=== PATIENT | female | born 1970 | race Caucasian/White ===

== ENCOUNTER → 2017-03-19 | Emergency (ER) | payer SELFPAY ==
[~2017-03-19] VITALS: Ht 167.6 cm; Wt 81.6 kg
[~2017-03-19] MED LIST: ASP325TEC PO; ASPI-587 PO; BENA40TA59 PO; BNZ10T; BNZ20T PO; BUTA1TAB46 PO; CEPH500C PO; CYCL10TA45 PO; CYCL10TA9 PO; FAMO-119 PO; HYDR-3714 PO; HYDR25CA5 PO; LISI1TAB10 PO; LISI20TA PO; MACROBID PO; MEDROL DOSE PACK PO; METH4TAB PO; MOME15CR TP; NITR0.4T39 SL; NORFLEX PO; OMEG1CAP51 PO; ONDA4TAB11 PO; PANT40TA2 PO; PARO10TA21; PARO20TA57 PO; PARO40TA3 PO; PRD10T PO; PRD20T PO; TRAM50TA2 PO
--- NOTE | 2017-03-19 13:49 | ED Integumentary General ---
General Chief Complaint: Skin/Wound Problems Stated Complaint: RASH/POSS POISON VALENTINE Nursing Triage Note: rash to rt eye, behind both ears, wrists. states got into posion valentine 2 days ago Source: patient Exam Limitations: no limitations History of Present Illness Time seen by provider: 13:31 Initial Comments This patient and her son both present to the emergency room with complaints of scattered poison valentine dermatitis on the extremities, trunk, and face. They have tried topical products such as Ivarest without improvement. Rash was developed a couple days ago after working outside in some brush. Allergies and Home Medications Allergies Coded Allergies: NKANo Known Allergies (Unverified Allergy, Mild, 03/19/17) Home Medications Famotidine 20 Mg Tablet, 20 MG PO BID, #30 Ref 0 Prescribed by: RAEANN SILVA on 01/03/16 1742 Paroxetine HCl 40 Mg Tablet, 40 MG PO DAILY, (Reported) Prednisone 10 Mg Tab, 10 MG PO UD, #18 3 tablets daily for 3 days, then 2 tablets daily for 3 days, then one tablet daily for 3 days Prescribed by: USMAN CARRASQUILLO on 03/19/17 1349 Constitutional: no symptoms reported EENTM: no symptoms reported Respiratory: no symptoms reported Cardiovascular: no symptoms reported Gastrointestinal: no symptoms reported Genitourinary: no symptoms reported : No Musculoskeletal: see HPI Skin: see HPI Psychiatric/Neurological: No Symptoms Reported Past Fwdkgss-Wuslda-Hoavfi Hx Patient Social History Alcohol Use: Denies Use Recreational Drug Use: No Smoking Status: Never a Smoker 2nd Hand Smoke Exposure: No Recent Foreign Travel: No Contact w/Someone Who Travel: No Recent Infectious Disease Expo: No Recent Hopitalizations: Yes (2008 TIA OVERNIGHT) Immunizations Up To Date Tetanus Booster (TDap): More than 5yrs Date of Pneumonia Vaccine: Dec 30, 2015 Seasonal Allergies Seasonal Allergies: No Surgeries HX Surgeries: Yes (WISDOM TEETH) Respiratory Hx Respiratory Disorders: No Cardiovascular Hx Cardiac Disorders: Yes Cardiac Disorders: High Cholesterol, Hypertension Neurological Hx Neurological Disorders: Yes (OCCASIONAL HEADACHES) Neurological Disorders: Headaches /Migraines, Stroke 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 System Hx 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 Disorders: No Sexually Transmitted Disease: No 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 Disorders: Denies Genitourinary Hx Genitourinary Disorders: No Gastrointestinal Hx Gastrointestinal Disorders: No Musculoskeletal Hx Musculoskeletal Disorders: Yes (CHRONIC NECK PAIN) Musculoskeletal Disorders: Scoliosis, Chronic Back Pain Endocrine Hx Endocrine Disorders: No HEENT HX ENT Disorders: No Cancer Hx Cancer: No Psychosocial Hx Psychiatric Problems: Yes Behavioral Health Disorders: Anxiety, Depression Integumentary HX Skin/Integumentary Disorder: No Skin/Integumentary Disorders: Recent Skin Changes Blood Transfusions Hx Blood Disorders: No Family Medical History Significant Family History: Heart Disease, Cancer Family Medial History: Cardiovascular disease FH: breast cancer 19 MOTHER (METS) FH: lung cancer 19 FATHER FHx: mental retardation G8 BROTHER Myocardial infarction 19 FATHER (X2) Physical Exam Vital Signs Vital Sign - Last 12Hours 03/19/17 03/19/17 13:28 13:54 Temp 98.0 Pulse 95 Resp 18 B/P (MAP) 136/105 Pulse Ox 99 Capillary Refill : Less Than 3 Seconds General Appearance: WD/WN, no apparent distress HEENT: PERRL/EOMI, normal ENT inspection Respiratory: no respiratory distress Extremities: normal inspection Neurologic/Psychiatric: imaging technician II-XII nml as tested, no motor/sensory deficits, alert, normal mood/affect, oriented x 3 Skin: rash (erythematous and pruritic rash scattered throughout the face, extremities, and trunk) Progress/Results/Core Measures Results/Orders Vital Signs/I&O Vital Sign - Last 12Hours 03/19/17 03/19/17 13:28 13:54 Temp 98.0 Pulse 95 90 Resp 18 18 B/P (MAP) 136/105 Pulse Ox 99 Blood Pressure Mean: 115 Departure Impression Impression: Primary Impression: Contact dermatitis due to poison valentine Disposition: 01 HOME, SELF-CARE Condition: Stable Departure-Patient Inst. Decision time for Depature: 13:40 Referrals: RENETTA CARPIO MD (PCP/Family) Primary Care Physician Patient Instructions: Poison Valentine Add. Discharge Instructions: You may use topical anti-itch medications including hydrocortisone cream according to package instructions. Use the prednisone prescription as directed. Follow-up with your primary care provider for any problems or concerns. Avoid scratching the rash is much as possible. All discharge instructions reviewed with patient and/or family. Voiced understanding. Scripts Prednisone (Prednisone) 10 Mg Tab 10 MG PO UD, #18 TAB 3 tablets daily for 3 days, then 2 tablets daily for 3 days, then one tablet daily for 3 days Prov: USMAN MISTRY MD 03/19/17 USMAN MISTRY MD Mar 19, 2017 13:49
[2017-03-19 13:54] VITALS: BP 136/70
== END | disposition home or self-care (01) ==
LOC: EDUNIT# 12:53 → ER 12:55
DX: L23.7 Allergic contact dermatitis due to plants, except food (principal)
CPT/HCPCS: 99281

== ENCOUNTER 2017-04-19 14:01 | Emergency (ER) | payer SELFPAY ==
[~2017-04-19] VITALS: Ht 167.6 cm; Wt 81.8 kg
[2017-04-19] MEDS ORDERED: meTOprolol TARTRATE 25 MG (LOPRESSOR) TABLET PO ONE ×2 (14:15→14:30)
[2017-04-19] MEDS ORDERED: NS IV 1000 ML 1,000 ML IV SCH (14:15)
[2017-04-19] MEDS ORDERED: ASPIRIN 81 MG CHEW (CHILDREN'S ASA) PO ONE (14:15)
--- NOTE | 2017-04-19 14:17 | ED Cardiac General ---
History of Present Illness General Chief Complaint: Cardiac/General Problems Stated Complaint: RAPID HEART RATE FATIGUE HEADACHE Nursing Triage Note: PATIENT REPORTS HER HEART RACING INTERMITTENTLY AND HAVING A HARD TIME CATCHING HER BREATH WHEN THIS HAPPENS, PATIENT REPORTS THIS HAS BEEN GOING ON FOR SEVERAL WEEKS, AND DENIES ANYTHING WORSE ABOUT IT TODAY, DENIES SEEKING TREATMENT BEFORE TODAY Source: patient Exam Limitations: no limitations History of Present Illness Time seen by provider: 14:15 Initial Comments To ER with reports of chest tightness, palpitations, fatigue, shortness of breath, high heart rate for weeks intermittently but more persistent over the past few days. Timing/Duration: getting worse, intermittent Severity: moderate NTG SL EDUCATION TEACHER: No ASA po EDUCATION TEACHER: No Allergies and Home Medications Allergies Coded Allergies: NKANo Known Allergies (Unverified Allergy, Mild, 03/19/17) Home Medications Famotidine 20 Mg Tablet, 20 MG PO BID, #30 Ref 0 Prescribed by: RAEANN SILVA on 01/03/16 174 Paroxetine HCl 40 Mg Tablet, 40 MG PO DAILY, (Reported) Review of Systems Constitutional: see HPI EENTM: No Symptoms Reported Respiratory: No Symptoms Reported Cardiovascular: No Symptoms Reported Gastrointestinal: See HPI Genitourinary: No Symptoms Reported Musculoskeletal: no symptoms reported Skin: no symptoms reported Psychiatric/Neurological: No Symptoms Reported Endocrine: No Symptoms Reported Hematologic/Lymphatic: No Symptoms Reported Past Xchfxuw-Srbrfd-Zcbaax Hx Patient Social History Alcohol Use: Denies Use Recreational Drug Use: No Smoking Status: Never a Smoker 2nd Hand Smoke Exposure: No Recent Foreign Travel: No Contact w/Someone Who Travel: No Recent Infectious Disease Expo: No Recent Hopitalizations: No Immunizations Up To Date Tetanus Booster (TDap): More than 5yrs Date of Pneumonia Vaccine: Dec 30, 2015 Seasonal Allergies Seasonal Allergies: No Surgeries HX Surgeries: Yes (WISDOM TEETH) Respiratory Hx Respiratory Disorders: No Cardiovascular Hx Cardiac Disorders: Yes Cardiac Disorders: High Cholesterol, Hypertension Neurological Hx Neurological Disorders: Yes (OCCASIONAL HEADACHES) Neurological Disorders: Headaches /Migraines, Stroke 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 System Hx 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 Disorders: No Sexually Transmitted Disease: No 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 Disorders: Denies Genitourinary Hx Genitourinary Disorders: No Gastrointestinal Hx Gastrointestinal Disorders: No Musculoskeletal Hx Musculoskeletal Disorders: Yes (CHRONIC NECK PAIN) Musculoskeletal Disorders: Scoliosis, Chronic Back Pain Endocrine Hx Endocrine Disorders: No HEENT HX ENT Disorders: No Cancer Hx Cancer: No Psychosocial Hx Psychiatric Problems: Yes Behavioral Health Disorders: Anxiety, Depression Integumentary HX Skin/Integumentary Disorder: No Skin/Integumentary Disorders: Recent Skin Changes Blood Transfusions Hx Blood Disorders: No Family Medical History Significant Family History: Heart Disease, Cancer Family Medial History: Cardiovascular disease FH: breast cancer 19 MOTHER (METS) FH: lung cancer 19 FATHER FHx: mental retardation G8 BROTHER Myocardial infarction 19 FATHER (X2) Physical Exam Vital Signs Vital Sign - Last 12Hours 04/19/17 14:08 Temp 98.4 Pulse 113 Resp 16 B/P (MAP) 142/98 Pulse Ox 96 O2 Delivery Room Air Capillary Refill : Less Than 3 Seconds General Appearance: No Apparent Distress, WD/WN HEENT: PERRL/EOMI, TMs Normal Neck: Full Range of Motion, Normal Inspection Respiratory: No Accessory Muscle Use, No Respiratory Distress Cardiovascular: Normal Peripheral Pulses, Tachycardia (sinus 117) Extremity: Normal Capillary Refill, Normal Inspection Neurologic/Psychiatric: Alert, Oriented x3 Skin: Normal Color, Warm/Dry Progress/Results/Core Measures Results/Orders Lab Results Laboratory Tests Test 04/19/17 14:15 04/19/17 16:02 04/19/17 16:22 Range/Units White Blood Count 6.5 4.3-11.0 10^3/uL Red Blood Count 4.66 4.35-5.85 10^6/uL Hemoglobin 9.9 L 11.5-16.0 G/DL Hematocrit 33 L 35-52 % Mean Corpuscular Volume 71 L 80-99 FL Mean Corpuscular Hemoglobin 21 L 25-34 PG Mean Corpuscular Hemoglobin Concent 30 L 32-36 G/DL Red Cell Distribution Width 18.0 H 10.0-14.5 % Platelet Count 322 130-400 10^3/uL Mean Platelet Volume 11.0 H 7.4-10.4 FL Neutrophils (%) (Auto) 57 42-75 % Lymphocytes (%) (Auto) 36 12-44 % Monocytes (%) (Auto) 4 0-12 % Eosinophils (%) (Auto) 3 0-10 % Basophils (%) (Auto) 1 0-10 % Neutrophils # (Auto) 3.7 1.8-7.8 X 10^3 Lymphocytes # (Auto) 2.3 1.0-4.0 X 10^3 Monocytes # (Auto) 0.3 0.0-1.0 X 10^3 Eosinophils # (Auto) 0.2 0.0-0.3 10^3/uL Basophils # (Auto) 0.0 0.0-0.1 10^3/uL Prothrombin Time 12.9 12.2-14.7 SEC INR Comment 1.0 0.8-1.4 Activated Partial Thromboplast Time 25 24-35 SEC Sodium Level 141 135-145 MMOL/L Potassium Level 3.9 3.6-5.0 MMOL/L Chloride Level 109 H 98-107 MMOL/L Carbon Dioxide Level 24 21-32 MMOL/L Anion Gap 8 5-14 MMOL/L Blood Urea Nitrogen 16 7-18 MG/DL Creatinine 0.89 0.60-1.30 MG/DL Estimat Glomerular Filtration Rate > 60 BUN/Creatinine Ratio 18 Glucose Level 132 H 70-105 MG/DL Calcium Level 9.9 8.5-10.1 MG/DL Magnesium Level 2.1 1.8-2.4 MG/DL Total Bilirubin 0.5 0.1-1.0 MG/DL Aspartate Amino Transf (AST/SGOT) 19 5-34 U/L Alanine Aminotransferase (ALT/SGPT) 16 0-55 U/L Alkaline Phosphatase 98 40-136 U/L Myoglobin 24.9 10.0-92.0 NG/ML Troponin I < 0.30 <0.30 NG/ML Total Protein 7.5 6.4-8.2 G/DL Albumin 4.2 3.2-4.5 G/DL Thyroid Stimulating Hormone (TSH) 1.61 0.35-4.94 UIU/ML My Orders Orders - VIRAL CHILDS AUDITING CONTROL CLERK Cbc With Automated Diff (04/19/17 14:06) Magnesium (04/19/17 14:06) Chest 1 View, Ap/Pa Only (04/19/17 14:06) Ekg Tracing (04/19/17 14:06) Cardiac Profile 1 (04/19/17 14:06) Comprehensive Metabolic Panel (04/19/17 14:06) Myoglobin Serum (04/19/17 14:06) Protime With Inr (04/19/17 14:06) Partial Thromboplastin Time (04/19/17 14:06) O2 (04/19/17 14:06) Monitor-Rhythm Ecg Trace Only (04/19/17 14:06) Lipid Panel (04/20/17 06:00) Aspirin Chewable Tablet (Baby Aspirin Ch (04/19/17 14:15) Saline Lock/Iv-Start (04/19/17 14:06) Thyroid Stimulating Hormone (04/19/17 14:06) Ns Iv 1000 Ml (Sodium Chloride 0.9%) (04/19/17 14:15) Rx-Nitroglycerin Sl Tabs (Rx-Nitrostat S (04/19/17 14:15) Metoprolol Tartrate (Ir) Tab (Lopressor (04/19/17 14:15) Ct Angio Chest W (04/19/17 14:16) Ondansetron Injection (Zofran Injectio (04/19/17 14:30) Metoprolol Tartrate (Ir) Tab (Lopressor (04/19/17 14:30) Ondansetron Injection (Zofran Injectio (04/19/17 14:23) Iohexol Injection (Omnipaque 350 Mg/Ml 1 (04/19/17 15:00) Ns (Ivpb) (Sodium Chloride 0.9% Ivpb Bag (04/19/17 15:00) Troponin I (04/19/17 16:19) Hcg,Qualitative Serum (04/19/17 16:23) Medications Given in ED Current Medications Medications Dose Ordered Sig/Lyndsay Route Start Time Stop Time Status Last Admin Dose Admin Aspirin 324 mg ONCE ONCE PO 04/19/17 14:15 04/19/17 14:16 DC 04/19/17 14:24 324 MG Iohexol 125 ml ONCE ONCE IV 04/19/17 15:00 04/19/17 15:02 DC 04/19/17 15:26 125 ML Metoprolol Tartrate 25 mg ONCE ONCE PO 04/19/17 14:15 04/19/17 14:16 DC 04/19/17 14:24 25 MG Nitroglycerin 0.4 mg PRN PRN SL 04/19/17 14:15 04/19/17 14:31 0.4 MG Ondansetron HCl 4 mg ONCE ONCE IVP 04/19/17 14:30 04/19/17 14:31 DC 04/19/17 14:30 4 MG Sodium Chloride 80 ml ONCE ONCE IV 04/19/17 15:00 04/19/17 15:02 DC 04/19/17 15:26 80 ML Vital Signs/I&O Vital Sign - Last 12Hours 04/19/17 04/19/17 14:08 14:08 Temp 98.4 Pulse 113 Resp 16 B/P (MAP) 142/98 Pulse Ox 96 97 O2 Delivery Room Air Blood Pressure Mean: 113 Departure Communication Progress Notes 1619-initial heart rate was 125 sinus with normal blood pressure. Her pain resolved about one hour after she received 2 sublingual nitroglycerin so the resolution of pain was likely unrelated to the nitroglycerin. CT angiogram is clear. No changes on EKG. I did give her 25 mg of metoprolol tartrate and 1 L of IV fluids and her heart rate reduced to 85 sinus still with a normal blood pressure. At this time she is pain-free. We will repeat a troponin at this time this will be the 6 hour troponin as her pain started at 10 a.m. If it is still negative we will discharge to home for further workup in the outpatient setting. I did discuss this [facility] Dr[facility]. Impression Impression: Primary Impression: Sinus tachycardia Additional Impressions: Chest pain Dyspnea Disposition: 01 HOME, SELF-CARE Condition: Stable Departure-Patient Inst. Decision time for Depature: 16:37 Referrals: RENETTA CARPIO MD (PCP/Family) Primary Care Physician Patient Instructions: Chest Pain (DC) Add. Discharge Instructions: 1. Follow-up with Dr. Carpio. Call his office today or tomorrow to make an appointment to be seen as soon as possible for further workup of your chest pain 2. Return to ER for any recurrent worsening chest pain or other concerns All discharge instructions reviewed with patient and/or family. Voiced understanding. Scripts Metoprolol Succinate (Toprol Xl) 50 Mg Tab.er.24h 50 MG PO DAILY, #14 TAB Prov: VIRAL CHILDS APRN 04/19/17 VIARL CHILDS APRN April 19, 2017 14:16
[2017-04-19] MEDS ORDERED: ONDANSETRON 4 MG/2 ML (SDV) Z0FRAN ONE (14:23)
[2017-04-19] MEDS: RX-NITROGLYCERIN 0.4 MG TAB BTL 25'S SL PRN ×2 (14:24→14:31)
[2017-04-19] MEDS ORDERED: ONDANSETRON 4 MG/2 ML (SDV) Z0FRAN IVP ONE (14:30)
[2017-04-19 14:37] LABS: BASOPHILS % (AUTO) 1 % (0-10); EOSINOPHILS # (AUTO) 0.2 10^3/uL (0.0-0.3); EOSINOPHILS % (AUTO) 3 % (0-10); LYMPHOCYTES # (AUTO) 2.3 X 10^3 (1.0-4.0); LYMPHOCYTES % (AUTO) 36 % (12-44); MEAN CORPUSCULAR HEMOGLOBIN 21 PG (25-34); MEAN CORPUSCULAR HGB CONC 30 G/DL (32-36); MEAN CORPUSCULAR VOLUME 71 FL (80-99); MONOCYTES # (AUTO) 0.3 X 10^3 (0.0-1.0); MONOCYTES % (AUTO) 4 % (0-12); NEUTROPHILS # (AUTO) 3.7 X 10^3 (1.8-7.8); NEUTROPHILS % (AUTO) 57 % (42-75); PLATELET COUNT 322 10^3/uL (130-400); RED BLOOD COUNT 4.66 10^6/uL (4.35-5.85); WHITE BLOOD COUNT 6.5 10^3/uL (4.3-11.0)
[2017-04-19 14:49] LABS: PROTHROMBIN TIME PATIENT 12.9 SEC (12.2-14.7)
[2017-04-19 14:59] LABS: ALANINE AMINOTRANSFERASE 16 U/L (0-55); ALBUMIN 4.2 G/DL (3.2-4.5); ANION GAP 8 MMOL/L (5-14); ASPARTATE AMINO TRANSFERASE 19 U/L (5-34); BILIRUBIN,TOTAL 0.5 MG/DL (0.1-1.0); BLOOD UREA NITROGEN 16 MG/DL (7-18); BUN/CREATININE RATIO 18; CALCIUM 9.9 MG/DL (8.5-10.1); CARBON DIOXIDE 24 MMOL/L (21-32); CHLORIDE 109 MMOL/L (98-107); CREATININE SERUM 0.89 MG/DL (0.60-1.30); GFR ESTIMATED > 60; GLUCOSE 132 MG/DL (70-105); MAGNESIUM 2.1 MG/DL (1.8-2.4); POTASSIUM 3.9 MMOL/L (3.6-5.0); SODIUM 141 MMOL/L (135-145); TOTAL PROTEIN 7.5 G/DL (6.4-8.2)
[2017-04-19] MEDS ORDERED: IOHEXOL 350 MG/ML 150 ML (OMNIPAQUE 350) VIAL IV ONE (15:00)
[2017-04-19] MEDS ORDERED: NS 100 ML (IVPB) BAG IV ONE (15:00)
[2017-04-19 15:06] LABS: MYOGLOBIN SERUM 24.9 NG/ML (10.0-92.0)
--- NOTE | 2017-04-19 16:15 | Diagnostic Imaging Report ---
PROCEDURE: CT angiography of the chest with contrast. TECHNIQUE: Multiple contiguous axial images were obtained through the chest after uneventful bolus administration of intravenous contrast. Reconstructed CTA MIP acquisitions were also performed. INDICATION: Chest pressure. Tachycardia. 125 mL of Omnipaque-350 was administered. Comparison to 12/28/2015. FINDINGS: There is normal variation of duplicated IVC with dense contrast from the left arm seen descending through the left SVC into the coronary sinus. There is good opacification of the pulmonary arteries with no filling defect to suggest pulmonary embolism. The thoracic aorta is normal in caliber. No dissection. The heart size is normal. No pericardial effusion. No pleural effusion. There is prominent pericardial recess adjacent to the ascending aorta with no mediastinal mass, or enlarged lymph node seen. Small nonspecific left hilar lymph node measuring 8 mm in short axis is noted. There are also nonenlarged axillary lymph nodes seen. The lungs demonstrate no significant consolidation, mass or suspicious nodule. Minimal groundglass opacities in the dependent areas of the lung bases are perhaps related to atelectasis. There is a minimally dilated peripheral pulmonary vein arising from the inferior lingula. It appears to be draining a small arteriovenous malformation noted near the subpleural region of the lung in the inferior aspect of the lingula along the anterior cardiophrenic angle region. The supplying artery appears to be a minimally dilated left inferior phrenic artery. When correlating with 12/28/2015, although subtle, this appears to be present. There is unremarkable appearance in the upper abdomen. The osseous structures appear grossly unremarkable. IMPRESSION: 1. No PE or aortic dissection. 2. 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 3. Duplicated SVC, normal variation. Dictated by: Dictated on workstation # [id number]
[2017-04-19] MEDS ORDERED: METO-352 PO (16:38)
--- NOTE | 2017-04-19 17:06 | Diagnostic Imaging Report ---
EXAMINATION: Portable upright radiograph of the chest. INDICATION: Palpitations. FINDINGS: The lungs are clear. The heart size is normal. No effusion or pneumothorax. The mediastinum and juan jose appear unremarkable. IMPRESSION: Unremarkable exam. Dictated by: Dictated on workstation # [id number]
[2017-04-19 17:27] VITALS: BP 135/92
== END 2017-04-19 17:29 | disposition home or self-care (01) ==
LOC: EDUNIT# 14:01 → ER 14:04
DX: R00.0 Tachycardia, unspecified (principal); R07.89 Other chest pain; R06.00 Dyspnea, unspecified; R51 Headache
CPT/HCPCS: 36415; 71010; 71275; 80053; 83735; 83874; 84443; 84484; 84703; 85025; 85610; 85730; 93005; 93041

== ENCOUNTER 2017-04-20 20:53 | Emergency (ER) | payer SELFPAY ==
[~2017-04-20] VITALS: Ht 167.6 cm; Wt 81.6 kg
[~2017-04-20 20:53] MED LIST changes: +METO-352 PO
[2017-04-20 21:26] LABS: BASOPHILS % (AUTO) 1 % (0-10); EOSINOPHILS # (AUTO) 0.3 10^3/uL (0.0-0.3); EOSINOPHILS % (AUTO) 3 % (0-10); LYMPHOCYTES % (AUTO) 41 % (12-44); MEAN CORPUSCULAR HEMOGLOBIN 22 PG (25-34); MEAN CORPUSCULAR HGB CONC 30 G/DL (32-36); MEAN CORPUSCULAR VOLUME 72 FL (80-99); MEAN PLATELET VOLUME 10.2 FL (7.4-10.4); MONOCYTES # (AUTO) 0.4 X 10^3 (0.0-1.0); MONOCYTES % (AUTO) 6 % (0-12); NEUTROPHILS # (AUTO) 3.6 X 10^3 (1.8-7.8); NEUTROPHILS % (AUTO) 49 % (42-75); PLATELET COUNT 322 10^3/uL (130-400); RED BLOOD COUNT 4.48 10^6/uL (4.35-5.85); RED CELL DISTRIBUTION WIDTH 17.9 % (10.0-14.5); WHITE BLOOD COUNT 7.3 10^3/uL (4.3-11.0)
[2017-04-20 21:30] LABS: PROTHROMBIN TIME PATIENT 13.3 SEC (12.2-14.7)
[2017-04-20] MEDS ORDERED: ASPIRIN 81 MG CHEW (CHILDREN'S ASA) PO ONE (21:30)
[2017-04-20 21:38] LABS: ALANINE AMINOTRANSFERASE 17 U/L (0-55); ALBUMIN 4.2 G/DL (3.2-4.5); ANION GAP 13 MMOL/L (5-14); ASPARTATE AMINO TRANSFERASE 20 U/L (5-34); BILIRUBIN,TOTAL 0.4 MG/DL (0.1-1.0); BLOOD UREA NITROGEN 12 MG/DL (7-18); BUN/CREATININE RATIO 14; CALCIUM 9.7 MG/DL (8.5-10.1); CARBON DIOXIDE 22 MMOL/L (21-32); CHLORIDE 107 MMOL/L (98-107); CREATININE SERUM 0.86 MG/DL (0.60-1.30); GFR ESTIMATED > 60; GLUCOSE 97 MG/DL (70-105); MAGNESIUM 2.3 MG/DL (1.8-2.4); POTASSIUM 3.5 MMOL/L (3.6-5.0); TOTAL PROTEIN 7.5 G/DL (6.4-8.2)
[2017-04-20] MEDS ORDERED: FAMOTIDINE 20MG/2ML IV (PEPCID) IVP ONE (21:45)
[2017-04-20] MEDS ORDERED: ANTACID SUSP 30 ML UDC (MYLANTA) PO ONE (21:45)
[2017-04-20] MEDS ORDERED: LIDOCAINE 2% VISCOUS 15 ML UDC PO ONE (21:45)
[2017-04-20 21:46] LABS: MYOGLOBIN SERUM 20.8 NG/ML (10.0-92.0)
[2017-04-20] MEDS ORDERED: NS IV 500 ML 500 ML ONE (21:46)
[2017-04-20] MEDS ORDERED: KETOROLAC 30 MG/ML VIAL ONE (21:46)
--- NOTE | 2017-04-20 21:46 | Diagnostic Imaging Report ---
Indication: Chest pain and heart palpitations for 24 hours. Discussion: Two views of the chest were obtained, comparison 04/19/2017. No adverse interval change. The heart and lungs remain normal. No acute osseous abnormality identified. Impression: Normal chest. Dictated by: Dictated on workstation # [id number]
[2017-04-20] MEDS ORDERED: NS IV 1000 ML 1,000 ML IV ONE (21:49)
[2017-04-20] MEDS ORDERED: NS IV 500 ML 500 ML IV ONE (21:49)
--- NOTE | 2017-04-20 21:49 | ED Chest Pain ---
General Chief Complaint: Cardiac/General Problems Stated Complaint: PALPITATIONS/SOB/TIGHT IN CHEST/SWELLING/HEADACHE Nursing Triage Note: Pt presents to ED with c/o nausea, WYNN, SOA, general weakness, cough, and chest tightness. Pt seen in ED for same symptoms yesterday. Nursing Sepsis Screen: No Definite Risk Source: patient Exam Limitations: no limitations History of Present Illness Time seen by provider: 21:09 Initial Comments This 46-year-old woman presents to the emergency room with complaints of palpitations, headache, tightness in the chest, dyspnea, cough, and nausea without vomiting. She also claims to have had a brief episode of slurring words earlier today but speech is normal at this time. She has no focal neurologic deficits on presentation. She was seen last night by Viral Espino and received a thorough workup including CT angiogram of the chest and a six- hour repeat troponin. She also had a stress test performed a year ago which was negative. She reports the tightness in her chest improves when getting up and around and is worse with lying flat. Allergies and Home Medications Allergies Coded Allergies: NKANo Known Allergies (Unverified Allergy, Mild, 03/19/17) Home Medications Famotidine 20 Mg Tablet, 20 MG PO BID, #30 Ref 0 Prescribed by: RAEANN SILVA on 01/03/16 1742 Metoprolol Succinate 50 Mg Tab.er.24h, 50 MG PO DAILY, #14 Prescribed by: VIRAL ESPINO on 04/19/17 1638 Paroxetine HCl 40 Mg Tablet, 40 MG PO DAILY, (Reported) Review of Systems Constitutional: no symptoms reported EENTM: No Symptoms Reported Respiratory: See HPI Cardiovascular: See HPI Gastrointestinal: No Symptoms Reported Genitourinary: No Symptoms Reported Musculoskeletal: no symptoms reported Skin: no symptoms reported Psychiatric/Neurological: No Symptoms Reported Endocrine: No Symptoms Reported Hematologic/Lymphatic: No Symptoms Reported Past Btlziiz-Okokfm-Opchch Hx Patient Social History Alcohol Use: Denies Use Recreational Drug Use: No Smoking Status: Never a Smoker 2nd Hand Smoke Exposure: No Recent Foreign Travel: No Contact w/Someone Who Travel: No Recent Infectious Disease Expo: No Recent Hopitalizations: No Immunizations Up To Date Tetanus Booster (TDap): More than 5yrs Date of Pneumonia Vaccine: Dec 30, 2015 Seasonal Allergies Seasonal Allergies: No Surgeries HX Surgeries: Yes (WISDOM TEETH) Respiratory Hx Respiratory Disorders: No Cardiovascular Hx Cardiac Disorders: Yes Cardiac Disorders: High Cholesterol, Hypertension Neurological Hx Neurological Disorders: Yes (OCCASIONAL HEADACHES) Neurological Disorders: Headaches /Migraines, Stroke (stated history but diagnosis uncertain) 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 System Hx 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 Disorders: No Sexually Transmitted Disease: No 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 Disorders: Denies Genitourinary Hx Genitourinary Disorders: No Gastrointestinal Hx Gastrointestinal Disorders: No Musculoskeletal Hx Musculoskeletal Disorders: Yes (CHRONIC NECK PAIN) Musculoskeletal Disorders: Scoliosis, Chronic Back Pain Endocrine Hx Endocrine Disorders: No HEENT HX ENT Disorders: No Cancer Hx Cancer: No Psychosocial Hx Psychiatric Problems: Yes Behavioral Health Disorders: Anxiety, Depression Integumentary HX Skin/Integumentary Disorder: No Skin/Integumentary Disorders: Recent Skin Changes Blood Transfusions Hx Blood Disorders: No Family Medical History Significant Family History: Heart Disease, Cancer Family Medial History: Cardiovascular disease FH: breast cancer 19 MOTHER (METS) FH: lung cancer 19 FATHER FHx: mental retardation G8 BROTHER Myocardial infarction 19 FATHER (X2) Physical Exam Vital Signs Vital Sign - Last 12Hours 04/20/17 20:58 Temp 97.7 Pulse 95 Resp 18 B/P (MAP) 141/97 Pulse Ox 97 O2 Delivery Room Air Capillary Refill : Less Than 3 Seconds General Appearance: No Apparent Distress, WD/WN HEENT: PERRL/EOMI, Normal ENT Inspection, Pharynx Normal Neck: Normal Inspection Respiratory: Chest Non Tender, Lungs Clear, Normal Breath Sounds, No Accessory Muscle Use, No Respiratory Distress Cardiovascular: Regular Rate, Rhythm, No Edema, No Murmur Gastrointestinal: Normal Bowel Sounds, Non Tender, Soft Extremity: Normal Inspection, No Pedal Edema Neurologic/Psychiatric: Alert, Oriented x3, No Motor/Sensory Deficits, Normal Mood/Affect, bond runner II-XII Norm as Tested, Other (normal gait, heel to mcclure and finger to nose. Normal speech) Skin: Normal Color, Warm/Dry Progress/Results/Core Measures Results/Orders Lab Results Laboratory Tests Test 04/20/17 21:05 Range/Units White Blood Count 7.3 4.3-11.0 10^3/uL Red Blood Count 4.48 4.35-5.85 10^6/uL Hemoglobin 9.7 L 11.5-16.0 G/DL Hematocrit 32 L 35-52 % Mean Corpuscular Volume 72 L 80-99 FL Mean Corpuscular Hemoglobin 22 L 25-34 PG Mean Corpuscular Hemoglobin Concent 30 L 32-36 G/DL Red Cell Distribution Width 17.9 H 10.0-14.5 % Platelet Count 322 130-400 10^3/uL Mean Platelet Volume 10.2 7.4-10.4 FL Neutrophils (%) (Auto) 49 42-75 % Lymphocytes (%) (Auto) 41 12-44 % Monocytes (%) (Auto) 6 0-12 % Eosinophils (%) (Auto) 3 0-10 % Basophils (%) (Auto) 1 0-10 % Neutrophils # (Auto) 3.6 1.8-7.8 X 10^3 Lymphocytes # (Auto) 3.0 1.0-4.0 X 10^3 Monocytes # (Auto) 0.4 0.0-1.0 X 10^3 Eosinophils # (Auto) 0.3 0.0-0.3 10^3/uL Basophils # (Auto) 0.0 0.0-0.1 10^3/uL Prothrombin Time 13.3 12.2-14.7 SEC INR Comment 1.0 0.8-1.4 Activated Partial Thromboplast Time 26 24-35 SEC Sodium Level 142 135-145 MMOL/L Potassium Level 3.5 L 3.6-5.0 MMOL/L Chloride Level 107 98-107 MMOL/L Carbon Dioxide Level 22 21-32 MMOL/L Anion Gap 13 5-14 MMOL/L Blood Urea Nitrogen 12 7-18 MG/DL Creatinine 0.86 0.60-1.30 MG/DL Estimat Glomerular Filtration Rate > 60 BUN/Creatinine Ratio 14 Glucose Level 97 70-105 MG/DL Calcium Level 9.7 8.5-10.1 MG/DL Magnesium Level 2.3 1.8-2.4 MG/DL Total Bilirubin 0.4 0.1-1.0 MG/DL Aspartate Amino Transf (AST/SGOT) 20 5-34 U/L Alanine Aminotransferase (ALT/SGPT) 17 0-55 U/L Alkaline Phosphatase 94 40-136 U/L Myoglobin 20.8 10.0-92.0 NG/ML Troponin I < 0.30 <0.30 NG/ML Total Protein 7.5 6.4-8.2 G/DL Albumin 4.2 3.2-4.5 G/DL My Orders Orders - USMAN MISTRY MD Cbc With Automated Diff (04/20/17:) Magnesium (04/20/17:17) Ekg Tracing (04/20/17:) Cardiac Profile 1 (04/20/17:17) Comprehensive Metabolic Panel (04/20/17:17) Myoglobin Serum (04/20/17 21:17) Protime With Inr (04/20/17:) Partial Thromboplastin Time (04/20/17:) O2 (04/20/17:17) Monitor-Rhythm Ecg Trace Only (04/20/17:) Lipid Panel (04/21/17 06:00) Aspirin Chewable Tablet (Baby Aspirin Ch (04/20/17 21:30) Saline Lock/Iv-Start (04/20/17:17) Chest Pa/Lat (2 View) (04/20/17 21:17) Lidocaine 2% Viscous 15 Ml (Xylocaine Vi (04/20/17 21:45) Antacid Suspension (Mylanta Suspension (04/20/17 21:45) Famotidine Injection (Pepcid Injection) (04/20/17 21:45) Ketorolac Injection (Toradol Injection) (04/20/17 22:00) Ns Iv 1000 Ml (Sodium Chloride 0.9%) (04/20/17 21:49) Ns Iv 500 Ml (Sodium Chloride 0.9%) (04/20/17 21:49) Ketorolac Injection (Toradol Injection) (04/20/17 21:46) Ns Iv 500 Ml (Sodium Chloride 0.9%) (04/20/17 21:46) Medications Given in ED Current Medications Medications Dose Ordered Sig/Lyndsay Route Start Time Stop Time Status Last Admin Dose Admin Al Hydrox/Mg Hydrox/Simethicone 30 ml ONCE ONCE PO 04/20/17 21:45 04/20/17 21:46 DC 04/20/17 21:46 30 ML Aspirin 324 mg ONCE ONCE PO 04/20/17 21:30 04/20/17 21:31 DC 04/20/17 21:30 324 MG Famotidine 20 mg ONCE ONCE IVP 04/20/17 21:45 04/20/17 21:46 DC 04/20/17 21:45 20 MG Ketorolac Tromethamine 30 mg ONCE ONCE IVP 04/20/17 22:00 04/20/17 22:01 DC 04/20/17 21:51 30 MG Lidocaine HCl 15 ml ONCE ONCE PO 04/20/17 21:45 04/20/17 21:46 DC 04/20/17 21:45 15 ML Sodium Chloride 500 ml @ 0 mls/hr Q0M ONCE IV 04/20/17 21:49 04/20/17 21:51 DC 04/20/17 21:52 0 MLS/HR Vital Signs/I&O Vital Sign - Last 12Hours 04/20/17 20:58 Temp 97.7 Pulse 95 Resp 18 B/P (MAP) 141/97 Pulse Ox 97 O2 Delivery Room Air Blood Pressure Mean: 112 Progress Note #1: Time: 21:45 Progress Note Labs and x-ray interpretation are pending. EKG was normal. Pain is atypical and worse with lying flat. A GI cocktail and Pepcid will be trialed. Workup from yesterday was reviewed. Progress Note #2: Time: 22:24 Progress Note GI cocktail and Pepcid did not significantly improve her pain. Toradol and IV fluids were given for treatment of headache. Patient has essentially had a cardiac rule out with multiple troponins and EKGs performed over the last 2 days. Pain is atypical in nature as it is unaffected by activity but worse with position changes. Review of chart revealed a negative stress test performed in 2015. Patient was given reassurance regarding her serum test that was performed yesterday. She was concerned about this because she is late on her menstrual cycle. She is 46 and we discussed perimenopausal symptoms which may account for some of the symptoms she has been experiencing recently. Case was reviewed with Dr. Dorothy Ford. She did not feel admission was necessary at this time and advised close follow-up in the clinic next week. Discharge instructions were reviewed with patient. ECG Initial ECG Impression Date: April 20, 2017 Initial ECG Impression Time: 21:06 Initial ECG Rate: 84 Initial ECG Rhythm: Normal Sinus Initial ECG Intervals: Normal Initial ECG Impression: Normal Comment Normal sinus rhythm with no ST elevation or depression. No abnormal intervals or axis deviation. Diagnostic Imaging Diagonstic Imaging: Xray Plain Films/CT/US/NM/MRI: chest Comments Chest x-ray viewed by me and report reviewed. See report below: NAME: [facility] REC#: [id number] PT STATUS: REG ER : 1970 PHYSICIAN: USMAN MISTRY MD ADMIT DATE: 04/20/17/ER Signed Date of Exam:04/20/17 CHEST PA/LAT (2 VIEW) Indication: Chest pain and heart palpitations for 24 hours. Discussion: Two views of the chest were obtained, comparison 04/19/2017. No adverse interval change. The heart and lungs remain normal. No acute osseous abnormality identified. Impression: Normal chest. Dictated by: Dictated on workstation # [id number] Dict: 04/20/172142 Trans: 04/20/172152 [id number] Interpreted by: RENETTA BUCKNER MD Electronically signed by: RENETTA BUCKNER MD 04/20/172152 Departure Impression Impression: Primary Impression: Atypical chest pain Additional Impressions: Palpitations Headache Qualified Codes: R51 - Headache Disposition: 01 HOME, SELF-CARE Condition: Improved Departure-Patient Inst. Decision time for Depature: 22:19 Referrals: RENETTA CARPIO MD (PCP/Family) Primary Care Physician Patient Instructions: Chest Pain (DC) Add. Discharge Instructions: Continue taking metoprolol as previously prescribed. Add aspirin 81 mg daily. Follow-up as [facility] as soon as possible. Return to the ER if symptoms worsen. Stay well-hydrated. You may take ibuprofen up to 800 mg every 8 hours as needed for headache or pain. All discharge instructions reviewed with patient and/or family. Voiced understanding. Work/School Note: Work Release Form Date Seen in the Emergency Department: April 20, 2017 Return to Work: April 23, 2017 Other Restrictions Listed Below: Seen in ER 04/19 and 04/20. May return to work nexte weekend if feeling well. Copy Copies To 1: RENETTA CARPIO MD, JOSHUA T MD April 20, 2017 21:49
[2017-04-20] MEDS ORDERED: KETOROLAC 30 MG/ML VIAL IVP ONE (22:00)
[2017-04-20 22:05] LABS: SODIUM 142 MMOL/L (135-145)
[2017-04-20 22:29] VITALS: BP 147/88
== END 2017-04-20 22:28 | disposition home or self-care (01) ==
LOC: EDUNIT# 20:53 → ER 20:57
DX: R07.89 Other chest pain (principal); R00.2 Palpitations; R51 Headache; I10 Essential (primary) hypertension
CPT/HCPCS: 36415; 71020; 80053; 83735; 83874; 84484; 85025; 85610; 85730; 93005; 93041; 96374; 96375

== ENCOUNTER 2017-04-27 23:35 | Emergency (ER) | payer SELFPAY ==
[~2017-04-27] VITALS: Ht 167.6 cm; Wt 81.6 kg
--- NOTE | 2017-04-28 00:13 | ED Syncope ---
General Chief Complaint: Trauma-Non Activation Stated Complaint: PASSED OUT,HEAD & RT CHECK PAINFUL Nursing Triage Note: syncopal episode, fell out of office chair. c/o worsened chronic neck pain, headache Source of Information: Patient, Family, RN Notes Reviewed Exam Limitations: No Limitations History of Present Illness Time Seen by Provider: 00:06 Initial Comments Patient presents along c/ her family c/ c/o head and neck pain p/ having a syncopal episode while sitting in a chair. Family believes she struck her head/ face on the table when she passed out and fell from her chair. Has never done this before. No warning. Hx of chronic neck pain now worse. Pain presently 5/ 10. Denies any chest pain or dyspnea. Location Injury Occurred: home Timing/Prior Episodes: No Prior History Symptoms Prior to Episode: None Precipitating Factors: Sitting Loss of Consciousness: No Loss of Consciousness Current Symptoms: Headache, Injury Allergies and Home Medications Allergies Coded Allergies: NKANo Known Allergies (Unverified Allergy, Mild, 03/19/17) morphine (Verified Allergy, Unknown, 04/27/17) Home Medications Cefdinir 300 Mg Capsule, 300 MG PO BID, #14 Ref 0 Prescribed by: DANA DON on 04/28/17 0330 Cyclobenzaprine HCl 10 Mg Tablet, 10 MG PO Q8H PRN for neck spasm, #30 Ref 0 Prescribed by: DANA DON on 04/28/17 0329 Diclofenac Sodium 50 Mg Tablet.dr, 50 MG PO Q6H PRN for neck/facial pain, #30 Ref 0 Prescribed by: DANA DON on 04/28/17 0329 Famotidine 20 Mg Tablet, 20 MG PO BID, #30 Ref 0 Prescribed by: RAEANN SILVA on 01/03/16 1742 Metoprolol Succinate 50 Mg Tab.er.24h, 50 MG PO DAILY, #14 Prescribed by: VIRAL CHILDS on 04/19/17 1638 Paroxetine HCl 40 Mg Tablet, 40 MG PO DAILY, (Reported) Constitutional: see HPI : No Musculoskeletal: neck pain (acute on chronic) Psychiatric/Neurological: See HPI, Headache All Other Systems Reviewed Negative Unless Noted: Yes (Negative excepted noted.) Past Omoidsj-Ivpvga-Xqcehm Hx Patient Social History Alcohol Use: Denies Use Recreational Drug Use: No Smoking Status: Never a Smoker 2nd Hand Smoke Exposure: No Recent Foreign Travel: No Contact w/Someone Who Travel: No Recent Infectious Disease Expo: No Recent Hopitalizations: No Immunizations Up To Date Tetanus Booster (TDap): More than 5yrs Date of Pneumonia Vaccine: Dec 30, 2015 Seasonal Allergies Seasonal Allergies: No Surgeries HX Surgeries: Yes (WISDOM TEETH) Respiratory Hx Respiratory Disorders: No Cardiovascular Hx Cardiac Disorders: Yes Cardiac Disorders: High Cholesterol, Hypertension Neurological Hx Neurological Disorders: Yes (OCCASIONAL HEADACHES) Neurological Disorders: Headaches /Migraines, Stroke 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 System : No Hx 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 Disorders: No Sexually Transmitted Disease: No 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 Genitourinary Hx Genitourinary Disorders: No Gastrointestinal Hx Gastrointestinal Disorders: No Musculoskeletal Hx Musculoskeletal Disorders: Yes (CHRONIC NECK PAIN) Musculoskeletal Disorders: Scoliosis, Chronic Back Pain Endocrine Hx Endocrine Disorders: No HEENT HX ENT Disorders: No Cancer Hx Cancer: No Psychosocial Hx Psychiatric Problems: Yes Behavioral Health Disorders: Anxiety, Depression Integumentary HX Skin/Integumentary Disorder: No Skin/Integumentary Disorders: Recent Skin Changes Blood Transfusions Hx Blood Disorders: No Family Medical History Significant Family History: Heart Disease, Cancer Family Medial History: Cardiovascular disease FH: breast cancer 19 MOTHER (METS) FH: lung cancer 19 FATHER FHx: mental retardation G8 BROTHER Myocardial infarction 19 FATHER (X2) Physical Exam Vital Signs Vital Sign - Last 12Hours 04/27/17 23:55 Temp 98.4 Pulse 99 Resp 16 B/P (MAP) 138/86 Pulse Ox 99 O2 Delivery Room Air Capillary Refill : Less Than 3 Seconds General Appearance: No Apparent Distress, WD/WN HEENT: PERRL/EOMI, Normal ENT Inspection Neck: Tender Lateral (B/L, R>L) Cardiovascular: Regular Rate, Rhythm Respiratory: No Respiratory Distress Extremities: Normal Inspection Neurologic/Psychiatric: Alert, Oriented x3, No Motor/Sensory Deficits, Normal Mood/Affect Cranial Nerves: Normal Hearing, Normal Speech, PERRL Coordination/Gait: Normal Gait Motor/Sensory: No Motor Deficit, No Sensory Deficit Skin: Warm/Dry Progress/Results/Core Measures Results/Orders Lab Results Laboratory Tests Test 04/28/17 00:35 04/28/17 00:40 Range/Units Urine Color RED H Urine Clarity SLIGHTLY CLOUDY Urine pH 6 5-9 Urine Specific [place] 1.020 1.016-1.022 Urine Protein 3+ H NEGATIVE Urine Glucose (UA) NEGATIVE NEGATIVE Urine Ketones 1+ H NEGATIVE Urine Nitrite POSITIVE H NEGATIVE Urine Bilirubin NEGATIVE NEGATIVE Urine Urobilinogen 4 H NORMAL MG/DL Urine Leukocyte Esterase 2+ H NEGATIVE Urine RBC (Auto) 5+ H NEGATIVE Urine RBC TNTC H /HPF Urine WBC 0-2 /HPF Urine Crystals NONE /LPF Urine Bacteria FEW H /HPF Urine Casts NONE /LPF Urine Mucus NEGATIVE /LPF Urine Culture Indicated YES Urine Opiates Screen NEGATIVE NEGATIVE Urine Oxycodone Screen NEGATIVE NEGATIVE Urine Methadone Screen NEGATIVE NEGATIVE Urine Propoxyphene Screen NEGATIVE NEGATIVE Urine Barbiturates Screen NEGATIVE NEGATIVE Ur Tricyclic Antidepressants Screen NEGATIVE NEGATIVE Urine Phencyclidine Screen NEGATIVE NEGATIVE Urine Amphetamines Screen NEGATIVE NEGATIVE Urine Methamphetamines Screen NEGATIVE NEGATIVE Urine Benzodiazepines Screen NEGATIVE NEGATIVE Urine Cocaine Screen NEGATIVE NEGATIVE Urine Cannabinoids Screen NEGATIVE NEGATIVE White Blood Count 7.6 4.3-11.0 10^3/uL Red Blood Count 4.43 4.35-5.85 10^6/uL Hemoglobin 9.4 L 11.5-16.0 G/DL Hematocrit 32 L 35-52 % Mean Corpuscular Volume 72 L 80-99 FL Mean Corpuscular Hemoglobin 21 L 25-34 PG Mean Corpuscular Hemoglobin Concent 30 L 32-36 G/DL Red Cell Distribution Width 18.3 H 10.0-14.5 % Platelet Count 335 130-400 10^3/uL Mean Platelet Volume 10.1 7.4-10.4 FL Neutrophils (%) (Auto) 51 42-75 % Lymphocytes (%) (Auto) 39 12-44 % Monocytes (%) (Auto) 6 0-12 % Eosinophils (%) (Auto) 3 0-10 % Basophils (%) (Auto) 1 0-10 % Neutrophils # (Auto) 3.9 1.8-7.8 X 10^3 Lymphocytes # (Auto) 2.9 1.0-4.0 X 10^3 Monocytes # (Auto) 0.5 0.0-1.0 X 10^3 Eosinophils # (Auto) 0.3 0.0-0.3 10^3/uL Basophils # (Auto) 0.1 0.0-0.1 10^3/uL D-Dimer 0.70 H 0.00-0.49 UG/ML Sodium Level 139 135-145 MMOL/L Potassium Level 3.8 3.6-5.0 MMOL/L Chloride Level 106 98-107 MMOL/L Carbon Dioxide Level 23 21-32 MMOL/L Anion Gap 10 5-14 MMOL/L Blood Urea Nitrogen 21 H 7-18 MG/DL Creatinine 0.82 0.60-1.30 MG/DL Estimat Glomerular Filtration Rate > 60 BUN/Creatinine Ratio 26 Glucose Level 101 70-105 MG/DL Calcium Level 9.7 8.5-10.1 MG/DL Magnesium Level 2.5 H 1.8-2.4 MG/DL Total Bilirubin 0.3 0.1-1.0 MG/DL Aspartate Amino Transf (AST/SGOT) 19 5-34 U/L Alanine Aminotransferase (ALT/SGPT) 12 0-55 U/L Alkaline Phosphatase 100 40-136 U/L Troponin I < 0.30 <0.30 NG/ML Total Protein 7.7 6.4-8.2 G/DL Albumin 4.2 3.2-4.5 G/DL Micro Results Microbiology 04/28/17 Urine Culture - Preliminary, Resulted My Orders Orders - DANA DON DO Saline Lock/Iv-Start (04/28/17 00:10) Ekg Tracing (04/28/17 00:10) Ct Head/Face/Cervical Wo (04/28/17 00:10) Cbc With Automated Diff (04/28/17 00:10) Comprehensive Metabolic Panel (04/28/17 00:10) Fibrin Degradation Products (04/28/17 00:10) Drug Screen Stat (Urine) (04/28/17 00:10) Magnesium (04/28/17 00:10) Troponin I (04/28/17 00:10) Ua Culture If Indicated (04/28/17 00:10) Chest Pa/Lat (2 View) (04/28/17 00:10) Orthostatic Vital Signs (04/28/17 00:10) Urine Culture (04/28/17 00:35) Ct Angio Chest W (04/28/17 01:16) Cephalexin Capsule (Keflex Capsule) (04/28/17 01:45) Methocarbamol Tablet (Robaxin Tablet) (04/28/17 01:45) Ketorolac Injection (Toradol Injection) (04/28/17 01:45) Medications Given in ED Vital Signs/I&O Vital Sign - Last 12Hours 04/27/17 04/28/17 23:55 03:38 Temp 98.4 98.1 Pulse 99 92 Resp 16 16 B/P (MAP) 138/86 Pulse Ox 99 98 O2 Delivery Room Air Blood Pressure Mean: 103 ECG Initial ECG Impression Date: Apr 28, 2017 Initial ECG Impression Time: 00:46 Initial ECG Rate: 88 Initial ECG Rhythm: Normal Sinus Initial ECG Intervals: Normal Initial ECG Impression: Normal Initial ECG Comparisson: Unchanged Diagnostic Imaging Diagonstic Imaging: Xray, CT Plain Films/CT/US/NM/MRI: chest (NAD ), c-spine, head, other (facial- nothing acute on CT's) Departure Impression Impression: Primary Impression: Syncope Additional Impressions: Facial contusion Sprain of ligaments of cervical spine UTI (urinary tract infection) Disposition: HOME, SELF-CARE Condition: Stable Departure-Patient Inst. Decision time for Depature: 03:26 Referrals: RENETTA CARPIO MD (PCP/Family) Primary Care Physician Patient Instructions: Minor Head Injury (DC), Syncope (Fainting) (DC), Urinary Tract Infection, Adult (DC), Whiplash (DC) Add. Discharge Instructions: All discharge instructions reviewed with patient and/or family. Voiced understanding. START/CONTINUE YOUR IRON PRESCRIBED DISCUSSED. Scripts Cefdinir (Cefdinir) 300 Mg Capsule 300 MG PO BID for UTI, #14 CAP 0 Refills Prov: DANA DON DO 04/28/17 Cyclobenzaprine HCl (Cyclobenzaprine HCl) 10 Mg Tablet 10 MG PO Q8H Y for neck spasm, #30 TAB 0 Refills Prov: DANA DON DO 04/28/17 Diclofenac Sodium (Diclofenac Sodium) 50 Mg Tablet.dr 50 MG PO Q6H Y for neck/facial pain, #30 TAB 0 Refills Prov: DANA DON DO 04/28/17 Work/School Note: Work Release Form DANA DON DO Apr 28, 2017 00:12
[2017-04-28 00:44] LABS: BILIRUBIN,URINE NEGATIVE (NEGATIVE); KETONES,URINE 1+ (NEGATIVE); LEUKOCYTE ESTERASE ,URINE 2+ (NEGATIVE); NITRITE,URINE POSITIVE (NEGATIVE); PH,URINE 6 (5-9); PROTEIN,URINE 3+ (NEGATIVE); UROBILINOGEN,URINE 4 MG/DL (NORMAL)
[2017-04-28 00:49] LABS: BASOPHILS # (AUTO) 0.1 10^3/uL (0.0-0.1); BASOPHILS % (AUTO) 1 % (0-10); EOSINOPHILS # (AUTO) 0.3 10^3/uL (0.0-0.3); EOSINOPHILS % (AUTO) 3 % (0-10); LYMPHOCYTES # (AUTO) 2.9 X 10^3 (1.0-4.0); LYMPHOCYTES % (AUTO) 39 % (12-44); MEAN CORPUSCULAR HEMOGLOBIN 21 PG (25-34); MEAN CORPUSCULAR HGB CONC 30 G/DL (32-36); MEAN CORPUSCULAR VOLUME 72 FL (80-99); MEAN PLATELET VOLUME 10.1 FL (7.4-10.4); MONOCYTES # (AUTO) 0.5 X 10^3 (0.0-1.0); MONOCYTES % (AUTO) 6 % (0-12); NEUTROPHILS # (AUTO) 3.9 X 10^3 (1.8-7.8); NEUTROPHILS % (AUTO) 51 % (42-75); PLATELET COUNT 335 10^3/uL (130-400); RED BLOOD COUNT 4.43 10^6/uL (4.35-5.85); RED CELL DISTRIBUTION WIDTH 18.3 % (10.0-14.5); WHITE BLOOD COUNT 7.6 10^3/uL (4.3-11.0)
[2017-04-28 01:03] LABS: WBC,URINE 0-2 /HPF
[2017-04-28 01:07] LABS: ALANINE AMINOTRANSFERASE 12 U/L (0-55); ALBUMIN 4.2 G/DL (3.2-4.5); ANION GAP 10 MMOL/L (5-14); ASPARTATE AMINO TRANSFERASE 19 U/L (5-34); BILIRUBIN,TOTAL 0.3 MG/DL (0.1-1.0); BLOOD UREA NITROGEN 21 MG/DL (7-18); BUN/CREATININE RATIO 26; CALCIUM 9.7 MG/DL (8.5-10.1); CARBON DIOXIDE 23 MMOL/L (21-32); CHLORIDE 106 MMOL/L (98-107); CREATININE SERUM 0.82 MG/DL (0.60-1.30); GFR ESTIMATED > 60; GLUCOSE 101 MG/DL (70-105); MAGNESIUM 2.5 MG/DL (1.8-2.4); POTASSIUM 3.8 MMOL/L (3.6-5.0); SODIUM 139 MMOL/L (135-145); TOTAL PROTEIN 7.7 G/DL (6.4-8.2)
[2017-04-28 01:12] LABS: TROPONIN I < 0.30 NG/ML (<0.30)
[2017-04-28] MEDS: KETOROLAC 30 MG/ML VIAL IVP ONE (02:08)
[2017-04-28] MEDS: METHOCARBAMOL 500 MG (ROBAXIN) TABLET PO ONE (02:08)
[2017-04-28] MEDS: CEPHALEXIN 250 MG (KEFLEX) CAP PO ONE (02:08)
[2017-04-28] MEDS ORDERED: CYCL10TA9 PO (03:29)
[2017-04-28] MEDS ORDERED: DICL50TA6 PO (03:29)
[2017-04-28] MEDS ORDERED: CEFD300C3 PO (03:30)
[2017-04-28 03:38] VITALS: BP 134/83
--- NOTE | 2017-04-28 07:45 | Diagnostic Imaging Report ---
PROCEDURE: CT angiography of the chest with contrast. TECHNIQUE: Multiple contiguous axial images were obtained through the chest after uneventful bolus administration of intravenous contrast. Reconstructed CTA MIP acquisitions were also performed. INDICATION: Passed out. COMPARISON: Comparison is made with a CTA of the chest from April 19, 2017. FINDINGS: There is adequate opacification demonstrated of the pulmonary arterial system. There is no filling defect within the pulmonary arteries to suggest embolism. 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 There is no aortic dissection or aneurysm. 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 There are no focal pulmonary infiltrates. There is no effusion. There is no pneumothorax. No pulmonary nodule or mass demonstrated. There is no thoracic adenopathy. The visualized portion of the upper abdomen is unremarkable. There is no acute osseous abnormality. IMPRESSION: 1. No CT angiographic evidence of pulmonary embolism. 2. Thoracic aorta unremarkable. 3. 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 Dictated by: Dictated on workstation # [id number]
--- NOTE | 2017-04-28 08:13 | Diagnostic Imaging Report ---
EXAM: PA and lateral chest. COMPARISON: April 20, 2017. INDICATION: Passed out. FINDINGS: The lungs appear clear without focal infiltrate or evidence of an effusion. There is no pneumothorax. Heart size and mediastinal contours are appropriate. Pulmonary vascularity appears within normal limits without evidence of failure. No acute osseous abnormality is demonstrated. IMPRESSION: No radiographic evidence of an acute cardiopulmonary process. 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 Dictated by: Dictated on workstation # [id number]
--- NOTE | 2017-04-28 08:35 | Diagnostic Imaging Report ---
PROCEDURE: CT head, face, and cervical spine without contrast. TECHNIQUE: Multiple contiguous axial images were obtained through the head, neck, and facial bones without the use of intravenous contrast. Sagittal and coronal reformations through the cervical spine and facial bones were also performed. INDICATION: Passed out. Hit right side of head and face. Head and face pain. FINDINGS: CT of the head demonstrates no evidence of an acute intracranial abnormality. There is no evidence of intracranial hemorrhage. There is no mass effect or shift. There is no abnormal extra-axial fluid collection. The ventricles appropriate in size and configuration. The basilar cisterns are patent. Pardo and white differentiation appears preserved. Mastoids and paranasal sinuses are clear. Orbital contents are unremarkable. No calvarial fracture is demonstrated. CT of the face demonstrates unremarkable appearance of the intraorbital contents. Sinuses are clear. No acute facial fracture is demonstrated. The temporomandibular joints are located. Cervical spine demonstrates straightening of the cervical lordosis but normal alignment. There is normal alignment of the craniocervical junction. The facets are normally aligned. There is no abnormal prevertebral soft tissue thickening. No acute cervical spine fracture is demonstrated. There is no evidence of high-grade canal stenosis. Lung apices are clear. There is no focal soft tissue abnormality. IMPRESSION: 1. No CT evidence of an acute intracranial abnormality. 2. No evidence of acute facial fracture. 3. No CT evidence of acute cervical spine fracture or traumatic malalignment. Dictated by: Dictated on workstation # [id number]
== END 2017-04-28 03:37 | disposition home or self-care (01) ==
LOC: EDUNIT# 23:35 → ER 23:38
DX: R55 Syncope and collapse (principal); S00.83XA Contusion of other part of head, initial encounter; S13.4XXA Sprain of ligaments of cervical spine, initial encounter; N30.91 Cystitis, unspecified with hematuria; I10 Essential (primary) hypertension; Z79.899 Other long term (current) drug therapy; W07.XXXA Fall from chair, initial encounter; Y92.009 Unspecified place in unspecified non-institutional (private) residence as the place of occurrence of the external cause; Y99.8 Other external cause status
CPT/HCPCS: 36415; 70450; 70486; 71020; 71275; 72125; 80053; 80306; 81000; 83735; 84484; 85025; 85379; 87088

== ENCOUNTER 2017-05-06 18:31 | Emergency (ER) | payer SELFPAY ==
[~2017-05-06] VITALS: Ht 167.6 cm; Wt 81.8 kg
[~2017-05-06 18:31] MED LIST changes: +CEFD300C3 PO; +DICL50TA6 PO
[2017-05-06] MEDS ORDERED: KETOROLAC 60 MG/2 ML VIAL IM STA (19:10)
[2017-05-06] MEDS ORDERED: ORPHENADRINE 60 MG/2 ML (NORFLEX) AMP IM STA (19:10)
--- NOTE | 2017-05-06 19:17 | ED Headache ---
General Chief Complaint: Head/Cervical Problems Stated Complaint: HEADACHE/NECK PAIN Nursing Triage Note: Ambulatory to ED 8 with reports of persistent intermittent headache, neck pain and left shoulder pain s/p fall with syncope on 04/27/17, which she was seen and evaluated in ED for. Denies following up with PCP. Nursing Sepsis Screen: No Definite Risk Source: patient, spouse Exam Limitations: no limitations History of Present Illness Time seen by provider: 18:58 Initial Comments 46-year-old female patient presents to the emergency department complains of persistent headache since falling 10 days ago. Patient was seen in the emergency department on 04/28/[address] scan of the head/neck/face with negative findings. Patient denies using the prescribed pain medications, but has been using the muscle relaxant w/o relief. Denies bowel or bladder incontinence. Timing/Duration: waxing and waning, other (10 days) Severity/Quality: throbbing Location: other (location of headache moves.) Prior Headaches/Recent Trauma: other (fell 10 days ago) Modifying Factors: worse with movement Allergies and Home Medications Allergies Coded Allergies: morphine (Verified Allergy, Unknown, 04/27/17) Home Medications Cefdinir 300 Mg Capsule, 300 MG PO BID, #14 Ref 0 Prescribed by: DANA DON on 04/28/17 0330 Cyclobenzaprine HCl 10 Mg Tablet, 10 MG PO Q8H PRN for neck spasm, #30 Ref 0 Prescribed by: DANA DON on 04/28/17 0329 Diclofenac Sodium 50 Mg Tablet.dr, 50 MG PO Q6H PRN for neck/facial pain, #30 Ref 0 Prescribed by: DANA DON on 04/28/17 0329 Famotidine 20 Mg Tablet, 20 MG PO BID, #30 Ref 0 Prescribed by: RAEANN SILVA on 01/03/16 1742 Metoprolol Succinate 50 Mg Tab.er.24h, 50 MG PO DAILY, #14 Prescribed by: VIRAL CHILDS on 04/19/17 1638 Orphenadrine Citrate 100 Mg Tablet.er, 100 MG PO BID PRN for SPASMS, #14 Ref 0 Prescribed by: RAEANN SILVA on 05/06/172027 Paroxetine HCl 40 Mg Tablet, 40 MG PO DAILY, (Reported) Prednisone 20 Mg Tab, 40 MG PO DAILY, #10 Ref 0 Prescribed by: RAEANN SILVA on 05/06/172027 Tramadol HCl 50 Mg Tablet, 50-100 MG PO Q4H PRN for PAIN-MILD TO MODERATE, #20 Ref 0 Prescribed by: RAEANN SILVA on 05/06/172027 Constitutional: No dizziness, No fever, No malaise, No weakness Eyes: Denies Drainage, Denies Decreased Acuity, Denies Photophobia, Denies Vision Changes Ears, Nose, Mouth, Throat: denies ear pain, denies ear discharge, denies nose pain, denies nose discharge, denies epistaxis, denies mouth pain, denies loose teeth, denies throat pain Respiratory: No cough, No short of breath Cardiovascular: No chest pain, No palpitations, No syncope Gastrointestinal: No abdominal pain, No diarrhea, loss of appetite, nausea, No vomiting Genitourinary: no symptoms reported Musculoskeletal: No back pain, joint pain (bilateral shoulder pain), neck pain Skin: no symptoms reported Psychiatric/Neurological: Headache, Denies Numbness, Denies Paresthesia, Denies Seizure, Denies Tingling, Denies Weakness All Other Systems Reviewed Negative Unless Noted: Yes (Negative excepted noted.) Past Gxaydsv-Zilpjj-Trazji Hx Patient Social History Alcohol Use: Denies Use Recreational Drug Use: No Smoking Status: Never a Smoker 2nd Hand Smoke Exposure: No Recent Foreign Travel: No Contact w/Someone Who Travel: No Recent Infectious Disease Expo: No Recent Hopitalizations: No Immunizations Up To Date Tetanus Booster (TDap): More than 5yrs Date of Pneumonia Vaccine: Dec 30, 2015 Seasonal Allergies Seasonal Allergies: No Surgeries HX Surgeries: Yes (WISDOM TEETH) Respiratory Hx Respiratory Disorders: No Cardiovascular Hx Cardiac Disorders: Yes Cardiac Disorders: High Cholesterol, Hypertension Neurological Hx Neurological Disorders: Yes (OCCASIONAL HEADACHES) Neurological Disorders: Headaches /Migraines, Stroke 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 System Hx 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 Disorders: No Sexually Transmitted Disease: No 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 Disorders: Denies 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 Genitourinary Hx Genitourinary Disorders: No Gastrointestinal Hx Gastrointestinal Disorders: No Musculoskeletal Hx Musculoskeletal Disorders: Yes (CHRONIC NECK PAIN) Musculoskeletal Disorders: Scoliosis, Chronic Back Pain Endocrine Hx Endocrine Disorders: No HEENT HX ENT Disorders: No Cancer Hx Cancer: No Psychosocial Hx Psychiatric Problems: Yes Behavioral Health Disorders: Anxiety, Depression Integumentary HX Skin/Integumentary Disorder: No Skin/Integumentary Disorders: Recent Skin Changes Blood Transfusions Hx Blood Disorders: No Reviewed Nursing Assessment Reviewed/Agree w Nursing PMH: Yes Family Medical History Significant Family History: Heart Disease, Cancer Family Medial History: Cardiovascular disease FH: breast cancer 19 MOTHER (METS) FH: lung cancer 19 FATHER FHx: mental retardation G8 BROTHER Myocardial infarction 19 FATHER (X2) Physical Exam Vital Signs Vital Sign - Last 12Hours 05/06/17 18:40 Temp 98.1 Pulse 106 Resp 16 B/P (MAP) 153/100 Pulse Ox 96 O2 Delivery Room Air Capillary Refill : Less Than 3 Seconds General Appearance: WD/WN, no apparent distress HEENT: PERRL/EOMI, normal ENT inspection, TMs normal, pharynx normal Neck: non-tender, supple, limited range of motion, tender lateral, No tender midline, other ((+) muscle spasm) Cardiovascular: normal peripheral pulses, no edema, no murmur, tachycardia Respiratory: lungs clear, normal breath sounds, no respiratory distress Gastrointestinal: normal bowel sounds, non tender, soft, No distended Back: normal inspection, no vertebral tenderness Extremities: normal range of motion, no pedal edema, normal capillary refill, other (bilateral posterior shoulders TTP with muscle spasms.) Psychiatric: alert, oriented x 3, other (appropriate affect.) Crainal Nerves: normal hearing, normal speech, PERRL, No abnormal pupil position, No abnormal speech, No facial asymmetry, No facial droop, No facial paresthesias, No facial weakness, No gaze palsy, No tongue deviation to R, No tongue deviation to L Coordination/Gait: normal finger to nose, normal gait, negative Romberg's sign Motor/Sensory: no motor deficit, no sensory deficit, no pronator drift Skin: normal color, warm/dry Progress/Results/Core Measures Results/Orders My Orders Orders - RAEANN SILVA Ct Head Wo (05/06/17 19:10) Ketorolac Injection (Toradol Injection) (05/06/17 19:10) Orphenadrine Injection (Norflex Injectio (05/06/17 19:10) Tramadol Tablet (Ultram Tablet) (05/06/17 20:30) Medications Given in ED Current Medications Medications Dose Ordered Sig/Lyndsay Route Start Time Stop Time Status Last Admin Dose Admin Tramadol HCl 50 mg ONCE ONCE PO 05/06/17 20:30 05/06/17 20:31 DC 05/06/17 20:32 50 MG Vital Signs/I&O Vital Sign - Last 12Hours 05/06/17 05/06/17 05/06/17 05/06/17 18:40 19:40 19:40 20:32 Temp 98.1 98.1 98.1 98.1 Pulse 106 Resp 16 B/P (MAP) 153/100 Pulse Ox 96 O2 Delivery Room Air 05/06/17 20:33 Temp 98.1 Pulse 88 Resp 16 Pulse Ox 98 Blood Pressure Mean: 117 Diagnostic Imaging Diagonstic Imaging: CT Plain Films/CT/US/NM/MRI: head Comments FINDINGS: No acute intracranial hemorrhage, mass effect or edema is seen. Pardo- white junction is preserved. The ventricles appear normal. No focal abnormality is suspected. The paranasal sinuses and mastoids are clear as visualized. IMPRESSION: There is no evidence of an acute intracranial abnormality. Dictated on workstation # [id number] Reviewed: Reviewed by Me (radiology report reviewed by me. ) Departure Communication Progress Notes Diagnostic findings discussed with the patient. Patient reports headache improved with medications given. States pain is now a 4/10. Patient given tramadol 1 dose prior to discharge. All return precautions were discussed with the patient as described in the discharge instructions of this report. Patient voices understanding and agrees with the treatment plan. Impression Impression: Primary Impression: Tension type headache Qualified Codes: G44.209 - Tension-type headache, unspecified, not intractable Additional Impressions: Strain of muscle, fascia and tendon at neck level, subsequent encounter Minor head injury Qualified Codes: S00.90XD - Unspecified superficial injury of unspecified part of head, subsequent encounter Disposition: 01 HOME, SELF-CARE Condition: Improved Departure-Patient Inst. Decision time for Depature: 20:03 Referrals: RENETTA CARPIO MD (PCP/Family) Primary Care Physician Patient Instructions: Minor Head Injury (DC), Tension Headache (DC) Add. Discharge Instructions: All discharge instructions reviewed with patient and/or family. Voiced understanding. Medications as instructed. Ibuprofen 800 mg by mouth every 8 hours as needed for pain. Ice packs or a heating pad as needed for headache and muscle spasm. Avoid strenuous activity, lifting, pushing, pulling, twisting, bending, climbing, or activities which may result in head injury for 7 days after headache resolves. Follow-up with family practitioner for recheck as an outpatient, call for appointment time tomorrow morning. Return to the emergency department for worsened headache, dizziness, changes in behavior, changes in vision, slurred speech, vomiting, decreased urination, numbness, weakness, bowel incontinence, bladder incontinence, seizure, or any other concerns. Scripts Orphenadrine Citrate (Orphenadrine Citrate) 100 Mg Tablet.er 100 MG PO BID Y for SPASMS, #14 TAB 0 Refills Prov: RAEANN SILVA 05/06/17 Tramadol HCl (Tramadol HCl) 50 Mg Tablet 50-100 MG PO Q4H Y for PAIN-MILD TO MODERATE, #20 TAB 0 Refills Prov: RAEANN SILVA 05/06/17 Prednisone (Prednisone) 20 Mg Tab 40 MG PO DAILY, #10 TAB 0 Refills Prov: RAEANN SILVA 05/06/17 RAEANN SILVA May 06, 2017 19:17
--- NOTE | 2017-05-06 19:39 | Diagnostic Imaging Report ---
PROCEDURE: CT head without contrast. TECHNIQUE: Multiple contiguous axial images were obtained through the brain without the use of intravenous contrast. INDICATION: Recent syncopal episode with headaches COMPARISON: 04/28/2017 FINDINGS: No acute intracranial hemorrhage, mass effect or edema is seen. Pardo-white junction is preserved. The ventricles appear normal. No focal abnormality is suspected. The paranasal sinuses and mastoids are clear as visualized. IMPRESSION: There is no evidence of an acute intracranial abnormality. Dictated by: Dictated on workstation # [id number]
[2017-05-06] MEDS ORDERED: ORPH100T PO (20:28)
[2017-05-06] MEDS ORDERED: TRAM50TA2 PO (20:28)
[2017-05-06] MEDS ORDERED: PRD20T PO (20:28)
[2017-05-06 20:33] VITALS: BP 144/90
== END 2017-05-06 20:33 | disposition home or self-care (01) ==
LOC: EDUNIT# 18:31 → ER 18:33
DX: G44.209 Tension-type headache, unspecified, not intractable (principal); S16.1XXD Strain of muscle, fascia and tendon at neck level, subsequent encounter; S09.90XD Unspecified injury of head, subsequent encounter; I10 Essential (primary) hypertension; F41.9 Anxiety disorder, unspecified; F32.9 Major depressive disorder, single episode, unspecified; Z86.73 Personal history of transient ischemic attack (TIA), and cerebral infarction without residual deficits; W19.XXXD Unspecified fall, subsequent encounter
CPT/HCPCS: 70450; 99282

== ENCOUNTER 2017-05-10 13:11 | Emergency (ER) | payer SELFPAY ==
[~2017-05-10] VITALS: Ht 167.6 cm; Wt 81.6 kg
[~2017-05-10 13:11] MED LIST changes: +ORPH100T PO
--- NOTE | 2017-05-10 13:40 | ED Headache ---
General Chief Complaint: General Problems/Pain Stated Complaint: LEFT SIDE HEAD/NECK/SHOULDER PAIN Source: patient Exam Limitations: no limitations History of Present Illness Time seen by provider: 13:38 Initial Comments To ER with left-sided headache, persistent nausea, pressure in her left ear, sensation of a knot in the left side of her neck. Patient states that she fell in her office at home and was found by her . She is brought out here and evaluated had a CT scan of the head and was told this was a concussion. Since then about a week ago she's had persistent headaches and nausea. Severity/Quality: moderate, constant Associated Symptoms: nausea/vomiting Allergies and Home Medications Allergies Coded Allergies: morphine (Verified Allergy, Unknown, 04/27/17) Home Medications Cefdinir 300 Mg Capsule, 300 MG PO BID, #14 Ref 0 Prescribed by: DANA DON on 04/28/17 0330 Cyclobenzaprine HCl 10 Mg Tablet, 10 MG PO Q8H PRN for neck spasm, #30 Ref 0 Prescribed by: DANA DON on 04/28/17 0329 Diclofenac Sodium 50 Mg Tablet.dr, 50 MG PO Q6H PRN for neck/facial pain, #30 Ref 0 Prescribed by: DANA DON on 04/28/17 0329 Famotidine 20 Mg Tablet, 20 MG PO BID, #30 Ref 0 Prescribed by: RAEANN SILVA on 01/03/16 1742 Metoprolol Succinate 50 Mg Tab.er.24h, 50 MG PO DAILY, #14 Prescribed by: VIRAL CHILDS on 04/19/17 1638 Orphenadrine Citrate 100 Mg Tablet.er, 100 MG PO BID PRN for SPASMS, #14 Ref 0 Prescribed by: RAEANN SILVA on 05/06/172027 Paroxetine HCl 40 Mg Tablet, 40 MG PO DAILY, (Reported) Prednisone 20 Mg Tab, 40 MG PO DAILY, #10 Ref 0 Prescribed by: RAEANN SILVA on 05/06/172027 Tramadol HCl 50 Mg Tablet, 50-100 MG PO Q4H PRN for PAIN-MILD TO MODERATE, #20 Ref 0 Prescribed by: RAEANN SILVA on 05/06/172027 Constitutional: see HPI Eyes: No Symptoms Reported Ears, Nose, Mouth, Throat: no symptoms reported Respiratory: no symptoms reported Cardiovascular: no symptoms reported Genitourinary: no symptoms reported Musculoskeletal: no symptoms reported Skin: no symptoms reported Psychiatric/Neurological: See HPI, Headache Past Imrlpzm-Ddxsyx-Hfzkgt Hx Patient Social History 2nd Hand Smoke Exposure: No Recent Foreign Travel: No Contact w/Someone Who Travel: No Recent Hopitalizations: No Immunizations Up To Date Tetanus Booster (TDap): More than 5yrs Date of Pneumonia Vaccine: Dec 30, 2015 Seasonal Allergies Seasonal Allergies: No Surgeries HX Surgeries: Yes (WISDOM TEETH) Respiratory Hx Respiratory Disorders: No Cardiovascular Hx Cardiac Disorders: Yes Cardiac Disorders: High Cholesterol, Hypertension Neurological Hx Neurological Disorders: Yes (OCCASIONAL HEADACHES) Neurological Disorders: Headaches /Migraines, Stroke 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 System Hx 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 Disorders: No Sexually Transmitted Disease: No 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 Disorders: 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 Genitourinary Hx Genitourinary Disorders: No Gastrointestinal Hx Gastrointestinal Disorders: No Musculoskeletal Hx Musculoskeletal Disorders: Yes (CHRONIC NECK PAIN) Musculoskeletal Disorders: Scoliosis, Chronic Back Pain Endocrine Hx Endocrine Disorders: No HEENT HX ENT Disorders: No Cancer Hx Cancer: No Psychosocial Hx Psychiatric Problems: Yes Behavioral Health Disorders: Anxiety, Depression Integumentary HX Skin/Integumentary Disorder: No Skin/Integumentary Disorders: Recent Skin Changes Blood Transfusions Hx Blood Disorders: No Family Medical History Significant Family History: Heart Disease, Cancer Family Medial History: Cardiovascular disease FH: breast cancer 19 MOTHER (METS) FH: lung cancer 19 FATHER FHx: mental retardation G8 BROTHER Myocardial infarction 19 FATHER (X2) Physical Exam Vital Signs Vital Sign - Last 12Hours 05/10/17 13:37 Temp 98.1 Pulse 69 Resp 20 B/P (MAP) 143/95 Pulse Ox 99 O2 Delivery Room Air Capillary Refill : General Appearance: WD/WN, no apparent distress HEENT: PERRL/EOMI, normal ENT inspection, other (there is a blue cylindrical foreign body next to the tympanic membrane on the right. Patient assures me she does not have tympanostomy tubes. Unclear what this is but it's very small and right next to the tympanic membrane so I will not attempt to remove this. The tympanic membrane itself is normal in appearance on both sides.) Neck: non-tender, full range of motion, other (tenderness to palpation of the left sternomastoid muscle. There is no knot palpable.) Respiratory: normal breath sounds, no respiratory distress, no accessory muscle use Gastrointestinal: normal bowel sounds, non tender, soft Psychiatric: alert, oriented x 3 Crainal Nerves: normal hearing, normal speech, PERRL Skin: normal color, warm/dry Progress/Results/Core Measures Results/Orders Lab Results Laboratory Tests Test 05/10/17 13:32 Range/Units Urine Color YELLOW Urine Clarity SLIGHTLY CLOUDY Urine pH 6 5-9 Urine Specific [place] 1.020 1.016-1.022 Urine Protein 1+ H NEGATIVE Urine Glucose (UA) NEGATIVE NEGATIVE Urine Ketones NEGATIVE NEGATIVE Urine Nitrite NEGATIVE NEGATIVE Urine Bilirubin NEGATIVE NEGATIVE Urine Urobilinogen NORMAL NORMAL MG/DL Urine Leukocyte Esterase 1+ H NEGATIVE Urine RBC (Auto) NEGATIVE NEGATIVE Urine RBC NONE /HPF Urine WBC NONE /HPF Urine Squamous Epithelial Cells 25-50 H /HPF Urine Crystals NONE /LPF Urine Bacteria NEGATIVE /HPF Urine Casts NONE /LPF Urine Mucus NEGATIVE /LPF Urine Culture Indicated NO My Orders Orders - VIRAL CHILDS APRN Ketorolac Injection (Toradol Injection) (05/10/17 13:45) Diphenhydramine Injection (Benadryl Inje (05/10/17 13:45) Prochlorperazine Injection (Compazine In (05/10/17 13:45) Ua Culture If Indicated (05/10/17 13:41) Ct Cervical Spine Wo (05/10/17 13:42) Saline Lock/Iv-Start (05/10/17 13:48) Prochlorperazine Injection (Compazine In (05/10/17 14:00) Diphenhydramine Injection (Benadryl Inje (05/10/17 14:00) Ketorolac Injection (Toradol Injection) (05/10/17 14:00) Medications Given in ED Current Medications Medications Dose Ordered Sig/Lyndsay Route Start Time Stop Time Status Last Admin Dose Admin Diphenhydramine HCl 25 mg ONCE ONCE IVP 05/10/17 14:00 05/10/17 14:01 DC 05/10/17 14:02 25 MG Ketorolac Tromethamine 30 mg ONCE ONCE IVP 05/10/17 14:00 05/10/17 14:01 DC 05/10/17 14:04 30 MG Prochlorperazine Edisylate 10 mg ONCE ONCE IV 05/10/17 14:00 05/10/17 14:01 DC 05/10/17 13:59 10 MG Vital Signs/I&O Vital Sign - Last 12Hours 05/10/17 13:37 Temp 98.1 Pulse 69 Resp 20 B/P (MAP) 143/95 Pulse Ox 99 O2 Delivery Room Air Departure Impression Impression: Primary Impression: lateral neck pain Additional Impression: Headache Disposition: HOME, SELF-CARE Condition: Stable Departure-Patient Inst. Decision time for Depature: 14:50 Referrals: RENETTA CARPIO MD (PCP/Family) Primary Care Physician Patient Instructions: NO INSTRUCTIONS GIVEN Add. Discharge Instructions: 1. You must follow-up with your regular doctor All discharge instructions reviewed with patient and/or family. Voiced understanding. VIRAL CHILDS REPORT PROGRAMMER May 10, 2017 13:40
[2017-05-10] MEDS ORDERED: KETOROLAC 60 MG/2 ML VIAL IM ONE (13:45)
[2017-05-10] MEDS ORDERED: PROCHLORPERAZINE 10 MG/2ML INJ (COMPAZINE) IM ONE (13:45)
[2017-05-10] MEDS ORDERED: diphenhydrAMINE 50 MG/ML INJ (BENADRYL) IM ONE (13:45)
[2017-05-10] MEDS ORDERED: PROCHLORPERAZINE 10 MG/2ML INJ (COMPAZINE) IV ONE (14:00)
[2017-05-10] MEDS ORDERED: diphenhydrAMINE 50 MG/ML INJ (BENADRYL) IVP ONE (14:00)
[2017-05-10] MEDS ORDERED: KETOROLAC 30 MG/ML VIAL IVP ONE (14:00)
[2017-05-10 14:09] LABS: BILIRUBIN,URINE NEGATIVE (NEGATIVE); KETONES,URINE NEGATIVE (NEGATIVE); LEUKOCYTE ESTERASE ,URINE 1+ (NEGATIVE); NITRITE,URINE NEGATIVE (NEGATIVE); PH,URINE 6 (5-9); PROTEIN,URINE 1+ (NEGATIVE); UROBILINOGEN,URINE NORMAL (NORMAL)
[2017-05-10 14:26] LABS: SQUAMOUS EPITHELIAL CELL,UR 25-50 /HPF
--- NOTE | 2017-05-10 14:46 | Diagnostic Imaging Report ---
PROCEDURE: CT cervical spine without contrast. TECHNIQUE: Multiple contiguous axial images were obtained through the cervical spine without the use of intravenous contrast. Sagittal and coronal reformations were then performed. INDICATION: Fall. Lump along the left side of the neck. FINDINGS: There is straightening of the cervical lordotic curvature. The alignment of the posterior spinal line is satisfactory. The alignment of the facet joints is satisfactory. There is normal alignment of the lateral masses of C1 and C2 at the atlanto-occipital joints as well. No widening of the predental space. There is satisfactory maintained vertebral body heights. Disc heights are also maintained. No significant osteophyte formation. No fracture seen. The area where the patient is feeling an increasing swelling is overlying the left sternocleidomastoid muscle with no fluid collection, hemorrhage or mass seen. IMPRESSION: Straightening of the cervical lordotic curvature is presumably positional. No fracture seen. Dictated by: Dictated on workstation # [id number]
[2017-05-10 15:05] VITALS: BP 143/95
== END 2017-05-10 15:05 | disposition home or self-care (01) ==
LOC: EDUNIT# 13:11 → ER 13:13
DX: R51 Headache (principal); M54.2 Cervicalgia; I10 Essential (primary) hypertension; Z86.73 Personal history of transient ischemic attack (TIA), and cerebral infarction without residual deficits
CPT/HCPCS: 72125; 81000

== ENCOUNTER 2017-08-07 19:59 | Emergency (ER) | payer SELFPAY ==
[~2017-08-07] VITALS: Ht 167.6 cm; Wt 81.6 kg
[2017-08-07 21:14] LABS: BILIRUBIN,URINE NEGATIVE (NEGATIVE); KETONES,URINE NEGATIVE (NEGATIVE); LEUKOCYTE ESTERASE ,URINE NEGATIVE (NEGATIVE); NITRITE,URINE NEGATIVE (NEGATIVE); PH,URINE 6 (5-9); PROTEIN,URINE NEGATIVE (NEGATIVE); UROBILINOGEN,URINE NORMAL (NORMAL)
[2017-08-07 21:24] LABS: WBC,URINE RARE /HPF
[2017-08-07] MEDS ORDERED: ANTACID SUSP 30 ML UDC (MYLANTA) PO ONE (21:30)
[2017-08-07] MEDS ORDERED: LIDOCAINE 2% VISCOUS 15 ML UDC PO ONE (21:30)
--- NOTE | 2017-08-07 21:43 | ED GI ---
General Chief Complaint: Abdominal/GI Problems Stated Complaint: PT FEELS LIKE SOMETHING IS STUCK IN HER THROAT Nursing Triage Note: c/o abdomen pain after eating, patient reports has been going on for several days, feels like something is stuck Sepsis Screen: No Definite Risk Source of Information: Patient Exam Limitations: No Limitations History of Present Illness Time Seen By Provider: 21:39 Initial Comments [id number] to ER with reports of foreign body sensation in her esophagus for the past week. She is uncertain as to what was that she was eating when this first started but she states that for the past week every time that she tries to swallow she feels as if there is something systolic in her upper throat. She does not have any history of this prior to 1 week ago. She's never had an EGD. She denies nausea vomiting or abdominal pain. No fevers or chills or shortness of breath. Timing/Duration: 1 Week Severity/Quality: Moderate Radiation: No Radiation Activities at Onset: None Allergies and Home Medications Allergies Coded Allergies: morphine (Verified Allergy, Unknown, 04/27/17) Home Medications Cefdinir 300 Mg Capsule, 300 MG PO BID, #14 Ref 0 Prescribed by: DANA DON on 04/28/17 0330 Cyclobenzaprine HCl 10 Mg Tablet, 10 MG PO Q8H PRN for neck spasm, #30 Ref 0 Prescribed by: DANA DON on 04/28/17 0329 Diclofenac Sodium 50 Mg Tablet.dr, 50 MG PO Q6H PRN for neck/facial pain, #30 Ref 0 Prescribed by: DANA DON on 04/28/17 0329 Famotidine 20 Mg Tablet, 20 MG PO BID, #30 Ref 0 Prescribed by: RAEANN SILVA on 01/03/16 1742 Metoprolol Succinate 50 Mg Tab.er.24h, 50 MG PO DAILY, #14 Prescribed by: VIRAL CHILDS on 04/19/17 1638 Orphenadrine Citrate 100 Mg Tablet.er, 100 MG PO BID PRN for SPASMS, #14 Ref 0 Prescribed by: RAEANN SILVA on 05/06/178 Pantoprazole Sodium 40 Mg Tablet.dr, 40 MG PO DAILY, #30 Prescribed by: VIRAL CHILDS on 08/07/179 Paroxetine HCl 40 Mg Tablet, 40 MG PO DAILY, (Reported) Prednisone 20 Mg Tab, 40 MG PO DAILY, #10 Ref 0 Prescribed by: RAEANN SILVA on 05/06/172027 Tramadol HCl 50 Mg Tablet, 50-100 MG PO Q4H PRN for PAIN-MILD TO MODERATE, #20 Ref 0 Prescribed by: RAEANN SILVA on 05/06/172027 Review of Systems Constitutional: see HPI EENTM: No Symptoms Reported Respiratory: No Symptoms Reported Cardiovascular: No Symptoms Reported Gastrointestinal: See HPI Genitourinary: No Symptoms Reported Musculoskeletal: no symptoms reported Skin: no symptoms reported Psychiatric/Neurological: No Symptoms Reported Past Fjmnmsp-Ihkkox-Ugxcvw Hx Patient Social History Alcohol Use: Denies Use Recreational Drug Use: No Smoking Status: Never a Smoker 2nd Hand Smoke Exposure: No Recent Foreign Travel: No Contact w/Someone Who Travel: No Recent Infectious Disease Expo: No Recent Hopitalizations: No Physical Abuse: No Sexual Abuse: No Immunizations Up To Date Tetanus Booster (TDap): More than 5yrs Date of Pneumonia Vaccine: Dec 30, 2015 Seasonal Allergies Seasonal Allergies: No Surgeries History of Surgeries: Yes (WISDOM TEETH) Respiratory History of Respiratory Disorde: No Cardiovascular History of Cardiac Disorders: Yes (tachycardia) Cardiac Disorders: High Cholesterol, Hypertension Neurological History of Neurological Disord: Yes (OCCASIONAL HEADACHES) Neurological Disorders: Concussion, Headaches /Migraines, Stroke 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 System Hx 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 Disorders: No Sexually Transmitted Disease: No 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 Disorders: Denies 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 Genitourinary History of Genitourinary Disor: No Gastrointestinal History of Gastrointestinal Di: No Musculoskeletal History of Musculoskeletal Dis: Yes (CHRONIC NECK PAIN) Musculoskeletal Disorders: Scoliosis, Chronic Back Pain Endocrine History of Endocrine Disorders: No HEENT History of HEENT Disorders: No Cancer History of Cancer: No Psychosocial History of Psychiatric Problem: Yes Behavioral Health Disorders: Anxiety, Depression Suicide Risk Score: 0 Integumentary History of Skin or Integumenta: No Skin/Integumentary Disorders: Recent Skin Changes Blood Transfusions History of Blood Disorders: No Family Medical History Significant Family History: Heart Disease, Cancer Family Medial History: Cardiovascular disease FH: breast cancer 19 MOTHER (METS) FH: lung cancer 19 FATHER FHx: mental retardation G8 BROTHER Myocardial infarction 19 FATHER (X2) Physical Exam Vital Signs VS - Last 72 Hours, by Label 08/07/17 20:41 Pulse 89 Resp 18 B/P (MAP) 152/98 Pulse Ox 99 Capillary Refill : Less Than 3 Seconds General Appearance: WD/WN, no apparent distress HEENT: PERRL/EOMI, normal ENT inspection Neck: non-tender, full range of motion Respiratory: no respiratory distress, no accessory muscle use Gastrointestinal: normal bowel sounds, non tender, soft Extremities: normal range of motion, non-tender Neurologic/Psychiatric: alert, normal mood/affect, oriented x 3 Skin: normal color, warm/dry Progress/Results/Core Measures Results/Orders Lab Results Laboratory Tests Test 08/07/17 20:45 Range/Units Urine Color YELLOW Urine Clarity CLEAR Urine pH 6 5-9 Urine Specific [place] 1.010 L 1.016-1.022 Urine Protein NEGATIVE NEGATIVE Urine Glucose (UA) NEGATIVE NEGATIVE Urine Ketones NEGATIVE NEGATIVE Urine Nitrite NEGATIVE NEGATIVE Urine Bilirubin NEGATIVE NEGATIVE Urine Urobilinogen NORMAL NORMAL MG/DL Urine Leukocyte Esterase NEGATIVE NEGATIVE Urine RBC (Auto) NEGATIVE NEGATIVE Urine RBC NONE /HPF Urine WBC RARE /HPF Urine Squamous Epithelial Cells 2-5 /HPF Urine Crystals NONE /LPF Urine Bacteria NEGATIVE /HPF Urine Casts NONE /LPF Urine Mucus NEGATIVE /LPF Urine Culture Indicated NO My Orders Orders - VIRAL CHILDS APRN Antacid Suspension (Mylanta Suspension (08/07/17 21:30) Lidocaine 2% Viscous 15 Ml (Xylocaine Vi (08/07/17 21:30) Ct Chest Wo (08/07/17 21:38) Medications Given in ED Current Medications Medications Dose Ordered Sig/Lyndsay Route Start Time Stop Time Status Last Admin Dose Admin Al Hydrox/Mg Hydrox/Simethicone 30 ml ONCE ONCE PO 08/07/17 21:30 08/07/17 21:31 DC 08/06/17 21:33 30 ML Lidocaine HCl 15 ml ONCE ONCE PO 08/07/17 21:30 08/07/17 21:31 DC 08/07/17 21:33 15 ML Vital Signs/I&O Vital Sign - Last 12Hours 08/07/17 20:41 Pulse 89 Resp 18 B/P (MAP) 152/98 Pulse Ox 99 Blood Pressure Mean: 116 Diagnostic Imaging Diagonstic Imaging: CT Comments NAME: DANIELLEScottJC [facility] REC#: [id number] PT STATUS: REG ER : 1970 PHYSICIAN: VIRAL CHILDS APRN ADMIT DATE: 08/07/17/ER Draft Date of Exam:08/07/17 CT CHEST WO PROCEDURE: CT chest without contrast. TECHNIQUE: Multiple contiguous axial images were obtained through the chest without the use of intravenous contrast. INDICATION: 47-year-old female complains of feeling like something is stuck in her throat for one week, now has chest pain. COMPARISONS: CTA chest 04/28/17. FINDINGS: There is no evidence of axillary adenopathy. Few shotty benign-appearing axillary nodes are seen. Assessment of the mediastinum is limited due to lack of IV contrast but no evidence of hilar or mediastinal adenopathy is suggested. Cardiac contour is normal. The thoracic aortic contour is also normal. The tracheobronchial tree appears normal. The visualized esophagus appears normal. The hypopharynx and laryngopharynx appear symmetric. The thyroid glands are also unremarkable. The superior mediastinum is normal. Lungs are clear with no consolidation, effusion or pneumothorax. Limited assessment of the abdomen shows no overall gross abnormalities. Bone windows show no lytic or blastic changes. IMPRESSION: Assessment of the mediastinum is limited, otherwise unremarkable nonenhanced CT chest. Additional nonemergent findings as described above. Dictated on workstation # [id number] Dict: 08/07/17 2156 Trans: 08/07/17 2204 [facility] [id number] Interpreted by: MARIE SCHMITZ MD Electronically signed by: Departure Impression Impression: Primary Impression: Esophageal discomfort Disposition: 01 HOME, SELF-CARE Condition: Stable Departure-Patient Inst. Decision time for Depature: 21:42 Referrals: JAYA MARRUFO BRETT D DO HUERTER, DAVID F MD (PCP/Family) Primary Care Physician IVETH MORAN MD, TAKAAKI MD Patient Instructions: NO INSTRUCTIONS GIVEN Add. Discharge Instructions: 1. Return to ER for any concerns 2. Call a surgeon of your choosing tomorrow to make an appointment to be seen and to discuss having an endoscopy of your esophagus 2. All discharge instructions reviewed with patient and/or family. Voiced understanding. Scripts Pantoprazole Sodium (Protonix) 40 Mg Tablet. 40 MG PO DAILY, #30 TAB Prov: VIRAL CHILDS APRN 08/07/17 Copy Copies To 1: RAMON BUTLER PETER J APRN Aug 07, 2017 21:43
--- NOTE | 2017-08-07 22:04 | Diagnostic Imaging Report ---
PROCEDURE: CT chest without contrast. TECHNIQUE: Multiple contiguous axial images were obtained through the chest without the use of intravenous contrast. INDICATION: 47-year-old female complains of feeling like something is stuck in her throat for one week, now has chest pain. COMPARISONS: CTA chest 04/28/17. FINDINGS: There is no evidence of axillary adenopathy. Few shotty benign-appearing axillary nodes are seen. Assessment of the mediastinum is limited due to lack of IV contrast but no evidence of hilar or mediastinal adenopathy is suggested. Cardiac contour is normal. The thoracic aortic contour is also normal. The tracheobronchial tree appears normal. The visualized esophagus appears normal. The hypopharynx and laryngopharynx appear symmetric. The thyroid glands are also unremarkable. The superior mediastinum is normal. Lungs are clear with no consolidation, effusion or pneumothorax. Limited assessment of the abdomen shows no overall gross abnormalities. Bone windows show no lytic or blastic changes. IMPRESSION: Assessment of the mediastinum is limited, otherwise unremarkable nonenhanced CT chest. Additional nonemergent findings as described above. Dictated by: Dictated on workstation # [id number]
[2017-08-07] MEDS ORDERED: PANT40TA2 PO (22:09)
[2017-08-07 22:34] VITALS: BP 152/98
== END 2017-08-07 22:34 | disposition home or self-care (01) ==
LOC: EDUNIT# 19:59 → ER 20:01
DX: K22.9 Disease of esophagus, unspecified (principal); E78.00 Pure hypercholesterolemia, unspecified; I10 Essential (primary) hypertension; G43.909 Migraine, unspecified, not intractable, without status migrainosus; M41.20 Other idiopathic scoliosis, site unspecified; F41.9 Anxiety disorder, unspecified; F32.9 Major depressive disorder, single episode, unspecified; Z80.1 Family history of malignant neoplasm of trachea, bronchus and lung; Z82.49 Family history of ischemic heart disease and other diseases of the circulatory system
CPT/HCPCS: 71250; 81000; 99283

== ENCOUNTER 2018-02-06 13:28 | Emergency (ER) | payer SELFPAY ==
[~2018-02-06] VITALS: Ht 167.6 cm; Wt 8.2 kg
--- OUTSIDE RECORDS SUMMARY | 2018-02-06 13:34 | XMS REPORT ---
Author Author RENETTA CARPIO [facility] Address [address] [place] [address] Care Team Providers Care Supervisor Chemical Name Role Phone RENETTA CARPIO Unavailable PROBLEMS Type Condition ICD9-CM Code [id number] Code Onset Dates Condition Status SNOMED Code Problem Iron deficiency anemia, unspecified iron deficiency anemia type D50.9 Active 03845039 Problem Anemia, unspecified type D64.9 Active 636180476 Problem Dysthymia F34.1 Active 72101969 ALLERGIES Substance Reaction Event Type Date Status Morphine Sulfate rash Drug Allergy Jan, Active SOCIAL HISTORY Never Assessed PLAN OF CARE Activity Details Follow Up prn Reason: VITAL SIGNS Height 67 in 2017-02-05 Weight 193.8 lbs 2017-02-05 Temperature 98.2 degrees Fahrenheit 2017-02-05 Heart Rate 118 bpm 2017-02-05 Respiratory Rate 20 2017-02-05 BMI 30.35 kg/m2 2017-02-05 Blood pressure systolic 142 mmHg 2017-02-05 Blood pressure diastolic 96 mmHg 2017-02-05 MEDICATIONS Medication Instructions Dosage Frequency Start Date End Date Duration Status Paxil 40 MG Orally qd 1 24h Active Pseudoephedrine HCl 60 mg Orally every 6 hrs 1 tablet as needed 6h Jan, 05 days Active Tramadol HCl 50 mg Orally every 4 hrs 1 tablet as needed 4h Jan, Jan, 07 days Active Amoxicillin 500 mg Orally 3 times a day 1 capsule 8h Jan, Jan, 07 days Active RESULTS No Results PROCEDURES No Known procedures IMMUNIZATIONS No Known Immunizations MEDICAL (GENERAL) HISTORY Type Description Date Medical History High Blood Pressure Medical History Heart Murmur Hospitalization History Cardiac related concerns but no diagnosis
--- OUTSIDE RECORDS SUMMARY | 2018-02-06 13:35 | XMS REPORT ---
Author Author RENETTA CARPIO [facility] Address [address] [place] [address] Care Team Providers Care Sharepoint Admin Name Role Phone RENETTA CARPIO Unavailable PROBLEMS Type Condition ICD9-CM Code [id number] Code Onset Dates Condition Status SNOMED Code Problem Iron deficiency anemia, unspecified iron deficiency anemia type D50.9 Active 75050504 Problem Anemia, unspecified type D64.9 Active 136900950 Problem Dysthymia F34.1 Active 21875624 ALLERGIES Substance Reaction Event Type Date Status Morphine Sulfate rash Drug Allergy March, Active SOCIAL HISTORY Never Assessed PLAN OF CARE Activity Details Follow Up prn Reason: VITAL SIGNS Height 67 in 2017-04-24 Weight 197.4 lbs 2017-04-24 Temperature 98.8 degrees Fahrenheit 2017-04-24 Heart Rate 108 bpm 2017-04-24 Respiratory Rate 18 2017-04-24 BMI 30.91 kg/m2 2017-04-24 Blood pressure systolic 124 mmHg 2017-04-24 Blood pressure diastolic 78 mmHg 2017-04-24 MEDICATIONS Medication Instructions Dosage Frequency Start Date End Date Duration Status Paxil 40 MG Orally Once a day 1 tablet in the morning 24h Active RESULTS Name Result Date Reference Range ANEMIA PANEL 2017-04-24 Iron Bind.Cap.(TIBC) 505 250-450 UIBC 481 131-425 Iron, Serum 24 27-159 Iron Saturation 5 15-55 Ferritin, Serum 6 15-150 Vitamin B12 380 211-946 Folate (Folic Acid), Serum 8.5 >3.0 WBC 6.2 3.4-10.8 RBC 4.59 3.77-5.28 Hemoglobin 9.5 11.1-15.9 Hematocrit 33.6 34.0-46.6 MCV 73 79-97 MCH 20.7 26.6-33.0 MCHC 28.3 31.5-35.7 RDW 17.6 12.3-15.4 Platelets 349 150-379 Neutrophils 55 Lymphs 35 Monocytes 6 Eos 3 Basos 1 Neutrophils (Absolute) 3.4 1.4-7.0 Lymphs (Absolute) 2.2 0.7-3.1 Monocytes(Absolute) 0.4 0.1-0.9 Eos (Absolute) 0.2 0.0-0.4 Baso (Absolute) 0.1 0.0-0.2 Immature Granulocytes 0 Immature Grans (Abs) 0.0 0.0-0.1 Reticulocyte Count 1.0 0.6-2.6 PROCEDURES Procedure Date Ordered Result Body Site IRON BINDING TEST April 24, 2017 ASSAY OF IRON April 24, 2017 VENIPUNCT, ROUTINE* April 24, 2017 ASSAY OF FERRITIN April 24, 2017 BLOOD FOLIC ACID SERUM April 24, 2017 COMPLETE CBC W/AUTO DIFF WBC April 24, 2017 AUTOMATED RETICULOCYTE COUNT April 24, 2017 VITAMIN B-12 April 24, 2017 IMMUNIZATIONS No Known Immunizations MEDICAL (GENERAL) HISTORY Type Description Date Medical History High Blood Pressure Medical History Heart Murmur Hospitalization History Cardiac related concerns but no diagnosis
--- OUTSIDE RECORDS SUMMARY | 2018-02-06 13:35 | XMS REPORT ---
Author Author RENETTA CARPIO [facility] Address [address] [place] [address] Care Team Providers Care Tumbling Machine Operator Name Role Phone RENETTA CARPIO Unavailable PROBLEMS Type Condition ICD9-CM Code [id number] Code Onset Dates Condition Status SNOMED Code Problem Iron deficiency anemia, unspecified iron deficiency anemia type D50.9 Active 91030145 Problem Anemia, unspecified type D64.9 Active 927645928 Problem Dysthymia F34.1 Active 68299548 ALLERGIES No Information SOCIAL HISTORY Never Assessed PLAN OF CARE VITAL SIGNS MEDICATIONS Unknown Medications RESULTS No Results PROCEDURES No Known procedures IMMUNIZATIONS No Known Immunizations MEDICAL (GENERAL) HISTORY Type Description Date Medical History High Blood Pressure Medical History Heart Murmur Hospitalization History Cardiac related concerns but no diagnosis
--- OUTSIDE RECORDS SUMMARY | 2018-02-06 13:35 | XMS REPORT ---
Author Author RENETTA CARPIO [facility] Address [address] [place] [address] Care Team Providers Care Flight Engineer Name Role Phone RENETTA CARPIO Unavailable PROBLEMS Type Condition ICD9-CM Code [id number] Code Onset Dates Condition Status SNOMED Code Problem Iron deficiency anemia, unspecified iron deficiency anemia type D50.9 Active 95513536 Problem Anemia, unspecified type D64.9 Active 165147473 Problem Dysthymia F34.1 Active 56474095 ALLERGIES Substance Reaction Event Type Date Status Morphine Sulfate rash Drug Allergy Jan, Active SOCIAL HISTORY Never Assessed PLAN OF CARE Activity Details Follow Up 6 Months Reason: VITAL SIGNS Height 67 in 2017-02-01 Weight 194.4 lbs 2017-02-01 Temperature 98.4 degrees Fahrenheit 2017-02-01 Heart Rate 112 bpm 2017-02-01 Respiratory Rate 22 2017-02-01 BMI 30.44 kg/m2 2017-02-01 Blood pressure systolic 140 mmHg 2017-02-01 Blood pressure diastolic 94 mmHg 2017-02-01 MEDICATIONS Medication Instructions Dosage Frequency Start Date End Date Duration Status Tramadol HCl 50 mg Orally every 4 hrs 1 tablet as needed 4h Jan, Jan, 07 days Active Paxil 40 MG Orally qd 1 24h Active RESULTS No Results PROCEDURES No Known procedures IMMUNIZATIONS No Known Immunizations MEDICAL (GENERAL) HISTORY Type Description Date Medical History High Blood Pressure Medical History Heart Murmur Hospitalization History Cardiac related concerns but no diagnosis
--- OUTSIDE RECORDS SUMMARY | 2018-02-06 13:36 | XMS REPORT ---
Author Author RENETTA CARPIO [facility] Address [address] [place] [address] Care Team Providers Care Revenue Stamp Clerk Name Role Phone RENETTA CARPIO Unavailable PROBLEMS Type Condition ICD9-CM Code BWF36-OA Code Onset Dates Condition Status SNOMED Code Problem Iron deficiency anemia, unspecified iron deficiency anemia type D50.9 Active 74045745 Problem Anemia, unspecified type D64.9 Active 767691835 Problem Dysthymia F34.1 Active 85327436 ALLERGIES No Information SOCIAL HISTORY Never Assessed PLAN OF CARE VITAL SIGNS MEDICATIONS Unknown Medications RESULTS No Results PROCEDURES No Known procedures IMMUNIZATIONS No Known Immunizations MEDICAL (GENERAL) HISTORY Type Description Date Medical History High Blood Pressure Medical History Heart Murmur Hospitalization History Cardiac related concerns but no diagnosis
--- OUTSIDE RECORDS SUMMARY | 2018-02-06 13:39 | XMS REPORT | Continuity of Care Document ---
Author Author [facility] Address Unknown Phone Unavailable Allergies Active Description Code Type Severity Reaction Onset Reported/Identified Relationship to Patient Clinical Status Yes NKANo Known Allergies NKA Miscellaneous Allergy Mild N/A 03/19/2017 Yes morphine [id number] Drug Allergy Unknown N/A 04/27/2017 Medications There is no data. Problems Date Dx Coded Attending Type Code Diagnosis Diagnosed By 09/23/2008 Ot 782.1 02/17/2010 307.81 HEADACHE, TENSION 02/17/2010 311 DEPRESSIVE DISORDER NOS 02/17/2010 401.1 HYPERTENSION, BENIGN ESSENTIAL 02/17/2010 WHITE DDS, CONSTANTIN J 307.81 HEADACHE, TENSION 02/17/2010 WHITE DDS, CONSTANTIN Minal 311 DEPRESSIVE DISORDER NOS 02/17/2010 WHITE DDS, CONSTANTIN J 401.1 HYPERTENSION, BENIGN ESSENTIAL 02/17/2010 RENETTA CARPIO MD 307.81 HEADACHE, TENSION 02/17/2010 RENETTA CARPIO MD 311 DEPRESSIVE DISORDER NOS 02/17/2010 RENETTA CARPIO MD 401.1 HYPERTENSION, BENIGN ESSENTIAL 02/17/2010 GRACIELA DIRECTOR FINANCIAL SERVICES, VLADISLAV A 307.81 HEADACHE, TENSION 02/17/2010 GRACIELA DIRECTOR FINANCIAL SERVICES, VLADISLAV A 311 DEPRESSIVE DISORDER NOS 02/17/2010 GRACIELA DIRECTOR FINANCIAL SERVICES, VLADISLAV A 401.1 HYPERTENSION, BENIGN ESSENTIAL 02/17/2010 GRACIELA DIRECTOR FINANCIAL SERVICES, VLADISALV A 307.81 HEADACHE, TENSION 02/17/2010 GRACIELA DIRECTOR FINANCIAL SERVICES, VLADISLAV A 311 DEPRESSIVE DISORDER NOS 02/17/2010 GRACIELA DIRECTOR FINANCIAL SERVICES, VLADISLAV A 401.1 HYPERTENSION, BENIGN ESSENTIAL 02/17/2010 GRACIELA DIRECTOR FINANCIAL SERVICES, VALDISLAV A 307.81 HEADACHE, TENSION 02/17/2010 GRACIELA DIRECTOR FINANCIAL SERVICES, VLADISLAV A 311 DEPRESSIVE DISORDER NOS 02/17/2010 GRACIELA DIRECTOR FINANCIAL SERVICES, VLADISLAV A 401.1 HYPERTENSION, BENIGN ESSENTIAL 07/02/2011 Ot 782.1 NONSPECIF SKIN ERUPT NEC 11/22/2011 Ot 272.4 HYPERLIPIDEMIA NEC/NOS 11/22/2011 Ot 276.8 HYPOPOTASSEMIA 11/22/2011 Ot 300.00 ANXIETY STATE NOS 11/22/2011 Ot 311 DEPRESSIVE DISORDER NEC 11/22/2011 Ot 401.0 MALIGNANT HYPERTENSION 11/22/2011 Ot 434.91 CEREBRAL ART OCCLUSION NOS W CEREBRAL IN 11/22/2011 Ot 780.79 OTH MALAISE FATIGUE 11/22/2011 Ot 784.0 HEADACHE 11/23/2011 Ot 434.91 CEREBRAL ART OCCLUSION NOS W CEREBRAL IN 11/23/2011 Ot 780.79 OTH MALAISE FATIGUE 02/19/2014 RAEANN RAINES Ot 724.2 LUMBAGO 02/19/2014 RAEANN RAINES Ot 737.30 IDIOPATHIC SCOLIOSIS 03/25/2014 MARK GODOY MD Ot 724.2 LUMBAGO 03/25/2014 MARK GODOY MD Ot 724.4 LUMBOSACRAL NEURITIS NOS 07/02/2014 VASILE SARMIENTO DO Ot 300.00 ANXIETY STATE NOS 07/02/2014 VASILE SARMIENTO DO Ot 785.1 PALPITATIONS 07/09/2014 KEYLA PELAYO MD Ot 300.00 ANXIETY STATE NOS 07/09/2014 KEYLA PELAYO MD Ot 311 DEPRESSIVE DISORDER NEC 07/09/2014 KEYLA PELAYO MD Ot 401.9 HYPERTENSION NOS 07/09/2014 KEYLA PELAYO MD Ot 599.70 HEMATURIA, UNSPECIFIED 07/09/2014 KEYLA PELAYO MD Ot 737.30 IDIOPATHIC SCOLIOSIS 07/09/2014 KEYLA PELYAO MD Ot 782.0 SKIN SENSATION DISTURB 07/09/2014 KEYLA PELAYO MD Ot 784.0 HEADACHE 10/12/2014 Ot 611.72 10/12/2014 Ot V16.3 10/12/2014 VASILE SARMIENTO DO Ot 285.9 ANEMIA NOS 10/12/2014 VASILE SARMIENTO DO Ot 611.71 MASTODYNIA 10/12/2014 VASILE SARMIENTO DO Ot 784.0 HEADACHE 10/15/2014 GRACIELAVLADISLAV Elise APRN A 611.6 GALACTORRHEA NOT ASSOCIATED WITH CHILDBIRTH 10/15/2014 FLAVIA OWENS APRNIDI A 611.71 MASTODYNIA 10/15/2014 GRACIELA ELSIE VLADISLAV A V72.31 NEWS WIRE PHOTO OPERATOR EXAM, ROUTINE 10/15/2014 GRACIELA DIRECTOR FINANCIAL SERVICESVLADISLAV Elise A V73.81 HPV SCREENING 10/15/2014 GRACIELA MOTLEYArik VLADISLAV A V74.5 STD SCREEN 10/15/2014 GRACIELA MOTLEYArik VLADISLAV A V76.10 BREAST CANCER SCREENING 10/15/2014 GRACIELAVLADISLAV Elise APRN A V76.2 CERVICAL CANCER SCREENING (PAP SMEAR) 10/15/2014 GRACIELA MOTLEYArik VLADISLAV A 611.6 GALACTORRHEA NOT ASSOCIATED WITH CHILDBIRTH 10/15/2014 GRACIELAVLADISLAV Elise APRN A 611.71 MASTODYNIA 10/15/2014 GRACIELAVLADISLAV Elise APRN A V72.31 NEWS WIRE PHOTO OPERATOR EXAM, ROUTINE 10/15/2014 GRACIELA DIRECTOR FINANCIAL SERVICESVLADISLAV Elise A V73.81 HPV SCREENING 10/15/2014 GRACIELAVLADISLAV Elise APRN A V74.5 STD SCREEN 10/15/2014 GRACIELAVLADISLAV Elise APRN A V76.10 BREAST CANCER SCREENING 10/15/2014 GRACIELA DIRECTOR FINANCIAL SERVICES, VLADISLAV A V76.2 CERVICAL CANCER SCREENING (PAP SMEAR) 10/15/2014 GRACIELAArik ZIMMERMAN VLADISLAV A 611.6 GALACTORRHEA NOT ASSOCIATED WITH CHILDBIRTH 10/15/2014 GRACIELA DIRECTOR FINANCIAL SERVICESVLADISLAV Elise A 611.71 MASTODYNIA 10/15/2014 GRACIELAArik ZIMMERMAN VLADISLAV A V72.31 NEWS WIRE PHOTO OPERATOR EXAM, ROUTINE 10/15/2014 GRACIELAVLADISLAV Elise APRN A V73.81 HPV SCREENING 10/15/2014 GRACIELAArik ZIMMERMAN VLADISLAV A V74.5 STD SCREEN 10/15/2014 GRACIELAArik ZIMMERMAN VLADISLAV A V76.10 BREAST CANCER SCREENING 10/15/2014 GRACIELAVLADISLAV Elise APRN A V76.2 CERVICAL CANCER SCREENING (PAP SMEAR) 10/19/2014 Ot 611.72 10/19/2014 Ot V16.3 10/20/2014 Ot 611.72 10/20/2014 Ot V16.3 10/26/2014 Ot 611.72 10/26/2014 Ot V16.3 10/26/2014 VALDISLAV OWENS APRN Ot 611.6 10/26/2014 GRACIELA VLADISLAV A DIRECTOR FINANCIAL SERVICES Ot 729.5 10/26/2014 GRACIELA VLADISLAV A DIRECTOR FINANCIAL SERVICES Ot 729.81 02/28/2015 VIRAL CHILDS DIRECTOR FINANCIAL SERVICES Ot 599.0 URIN TRACT INFECTION NOS 02/28/2015 VIRAL CHILDS DIRECTOR FINANCIAL SERVICES Ot 780.4 DIZZINESS AND GIDDINESS 02/28/2015 Ot 611.72 02/28/2015 Ot V16.3 02/28/2015 VLADISLAV OWENS A DIRECTOR FINANCIAL SERVICES Ot 611.6 02/28/2015 GRACIELA VLADISLAV A DIRECTOR FINANCIAL SERVICES Ot 729.5 02/28/2015 VLADISLAV OWENS A DIRECTOR FINANCIAL SERVICES Ot 729.81 03/15/2015 VLADISLAV OWENS APRN 112.3 CANDIDIASIS OF SKIN AND NAILS 05/12/2015 VASILE SARMIENTO DO Ot 307.81 TENSION HEADACHE 05/12/2015 VASILE SARMIENTO DO Ot 784.0 HEADACHE 07/01/2015 Ot 611.72 07/01/2015 Ot V16.3 07/01/2015 GRACIELA VLADISLAVGAUDENCIO Chavez APRN Ot 611.6 07/01/2015 GRACIELA VLADISLAV A DIRECTOR FINANCIAL SERVICES Ot 729.5 07/01/2015 GRACIELA VLADISLAV A DIRECTOR FINANCIAL SERVICES Ot 729.81 07/01/2015 VASILE SARMIENTO DO Ot 599.0 URIN TRACT INFECTION NOS 07/01/2015 VASILE SARMIENTO DO Ot 692.9 DERMATITIS NOS 07/01/2015 VASILE SARMIENTO DO Ot 723.1 CERVICALGIA 07/01/2015 VASILE SARMIENTO DO Ot 782.1 NONSPECIF SKIN ERUPT NEC 07/09/2015 Ot 611.72 07/09/2015 Ot V16.3 07/09/2015 VLADISLAV OWENS A DIRECTOR FINANCIAL SERVICES Ot 611.6 07/09/2015 VLADISLAV OWENS A DIRECTOR FINANCIAL SERVICES Ot 729.5 07/09/2015 VLADISLAV OWENS A DIRECTOR FINANCIAL SERVICES Ot 729.81 07/23/2015 Ot 611.72 07/23/2015 Ot V16.3 07/23/2015 VLADISLAV OWENS A DIRECTOR FINANCIAL SERVICES Ot 611.6 07/23/2015 VLADISLAV OWENS DIRECTOR FINANCIAL SERVICES Ot 729.5 07/23/2015 VLADISLAV OWENS DIRECTOR FINANCIAL SERVICES Ot 729.81 09/06/2015 Ot 611.72 09/06/2015 Ot V16.3 09/06/2015 VLADSILAV OWENS DIRECTOR FINANCIAL SERVICES Ot 611.6 09/06/2015 VLADISLAV OWENS DIRECTOR FINANCIAL SERVICES Ot 729.5 09/06/2015 VLADISLAV OWENS DIRECTOR FINANCIAL SERVICES Ot 729.81 09/06/2015 VIRAL CHILDS DIRECTOR FINANCIAL SERVICES Ot R21 RASH AND OTHER NONSPECIFIC SKIN ERUPTION 10/01/2015 JENN TRIPLETT, LAUREN Ledesma Ot I10 ESSENTIAL (PRIMARY) HYPERTENSION 10/01/2015 JENN TRIPLETT, LAUREN Ledesma Ot K21.0 GASTRO-ESOPHAGEAL REFLUX DISEASE WITH ES 10/01/2015 JENN TRIPLETT, LAUREN Ledesma Ot R07.89 OTHER CHEST PAIN 10/01/2015 Ot 611.72 10/01/2015 Ot V16.3 10/01/2015 VLADISLAV OWENS APRN Ot 611.6 10/01/2015 VLADISLAV OWENS APRN Ot 729.5 10/01/2015 VLADISLAV OWENS DIRECTOR FINANCIAL SERVICES Ot 729.81 10/04/2015 JENN TRIPLETT, LAUREN Ledesma Ot I10 10/04/2015 JENN TRIPLETT, LAUREN Ledesma Ot K21.0 10/04/2015 JENN TRIPLETT, LAUREN Ledesma Ot R07.89 10/05/2015 JENN TRIPLETT, LAUREN Ledesma Ot I10 10/05/2015 JENN TRIPLETT, LAUREN Ledesma Ot K21.0 10/05/2015 JENN TRIPLETT, LAUREN Ledesma Ot R07.89 12/30/2015 Ot E78.5 HYPERLIPIDEMIA, UNSPECIFIED 12/30/2015 Ot E87.6 HYPOKALEMIA 12/30/2015 Ot F32.9 MAJOR DEPRESSIVE DISORDER, SINGLE EPISOD 12/30/2015 Ot F41.9 ANXIETY DISORDER, UNSPECIFIED 12/30/2015 Ot I10 ESSENTIAL ( PRIMARY) HYPERTENSION 12/30/2015 Ot I49.3 VENTRICULAR PREMATURE DEPOLARIZATION 12/30/2015 Ot K21.9 GASTRO- ESOPHAGEAL REFLUX DISEASE WITHOUT 12/30/2015 Ot R07.9 CHEST PAIN, UNSPECIFIED 01/03/2016 RAEANN RAINES Ot E86.9 VOLUME DEPLETION, UNSPECIFIED 01/03/2016 RAEANN RAINES Ot K76.0 FATTY (CHANGE OF) LIVER, NOT ELSEWHERE C 01/03/2016 RAEANN RAINES Ot R07.89 OTHER CHEST PAIN 01/03/2016 RAEANN RAINES Ot R10.11 RIGHT UPPER QUADRANT PAIN 01/03/2016 RAEANN RAINES Ot R63.4 ABNORMAL WEIGHT LOSS 01/05/2016 MARK GODOY MD Ot E86.0 DEHYDRATION 01/05/2016 MARK GODOY MD Ot M79.1 MYALGIA 01/05/2016 MARK GODOY MD, Ot R07.9 CHEST PAIN, UNSPECIFIED 01/05/2016 MARK GODOY MD, Ot R11.2 NAUSEA WITH VOMITING, UNSPECIFIED 02/10/2016 Ot 611.72 02/10/2016 Ot V16.3 02/10/2016 VLADISLAV OWENS APRN Ot 611.6 02/10/2016 VLADISLAV OWENS APRN Ot 729.5 02/10/2016 VLADISLAV OWENS APRN Ot 729.81 02/11/2016 VIRAL CHILDS APRN Ot R21 03/09/2016 VASILE SARMIENTO DO Ot 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 03/09/2016 VASILE SARMIENTO DO Ot X58.XXXA EXPOSURE TO OTHER SPECIFIED FACTORS, INI 03/09/2016 VASILE SARMIENTO DO Ot Y92.[address] [facility] [address] [facility] (PRIVATE 03/09/2016 VASILE SARMIENTO DO Ot Y99.8 OTHER EXTERNAL CAUSE STATUS 03/09/2016 VASILE SARMIENTO DO Ot Z23 ENCOUNTER FOR IMMUNIZATION 03/09/2016 Ot 611.72 03/09/2016 Ot V16.3 03/09/2016 VLADISLAV OWENS APRN Ot 611.6 03/09/2016 VLADISLAV OWENS APRN Ot 729.5 03/09/2016 VLADISLAV OWENS APRN Ot 729.81 03/09/2016 VASILE SARMIENTO DO Ot S05.01XA 03/09/2016 VASILE SARMIENTO DO Ot X58.XXXA 03/09/2016 VASILE SARMIENTO DO Ot Y92.009 03/09/2016 VASILE SARMIENTO DO Ot Y99.8 03/09/2016 VASILE SARMIENTO DO Ot Z23 03/15/2016 VASILE SARMIENTO DO Ot 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 03/15/2016 VASILE SARMIENTO DO Ot X58.XXXA EXPOSURE TO OTHER SPECIFIED FACTORS, INI 03/15/2016 VASILE SARMIENTO DO Ot Y92.[address] IN [facility] NON-INSTIT[facility] (PRIVATE 03/15/2016 VASILE SARMIENTO DO Ot Y99.8 OTHER EXTERNAL CAUSE STATUS 03/15/2016 VASILE SARMIENTO DO Ot Z23 ENCOUNTER FOR IMMUNIZATION 03/16/2016 VASILE SARMIENTO DO Ot 285.9 ANEMIA NOS 03/16/2016 GUILLERMINA VASILE GARDUNO Ot 611.71 MASTODYNIA 03/16/2016 VASILE SARMIENTO DO Ot 784.0 HEADACHE 06/08/2016 VASILE SARMIENTO DO Ot 599.0 URIN TRACT INFECTION NOS 06/08/2016 VASILE SARMIENTO DO Ot 692.9 DERMATITIS NOS 06/08/2016 VASILE SARMIENTO DO Ot 723.1 CERVICALGIA 06/08/2016 GUILLERMINA VASILE GARDUNO Ot 782.1 NONSPECIF SKIN ERUPT NEC 06/08/2016 JENN TRIPLETT, LAUREN Ledesma Ot I10 ESSENTIAL (PRIMARY) HYPERTENSION 06/08/2016 JENN TRIPLETT, LAUREN Ledesma Ot K21.0 GASTRO-ESOPHAGEAL REFLUX DISEASE WITH ES 06/08/2016 JENN TRIPLETT, LAUREN Ledesma Ot R07.89 OTHER CHEST PAIN 06/08/2016 MARK GODOY MD Ot E86.0 DEHYDRATION 06/08/2016 MARK GODOY MD Ot M79.1 MYALGIA 06/08/2016 MARK GODOY MD Ot R07.9 CHEST PAIN, UNSPECIFIED 06/08/2016 MARK GODOY MD Ot R11.2 NAUSEA WITH VOMITING, UNSPECIFIED 06/22/2016 Ot 611.72 LUMP OR MASS IN BREAST 06/22/2016 Ot V16.3 FAMILY HX- BREAST MALIG 06/22/2016 VLADISLAV OWENS DIRECTOR FINANCIAL SERVICES Ot 611.6 GALACTORRHEA-NONOBSTET 06/22/2016 GRACIELAFLAVIAVLADISLAV A DIRECTOR FINANCIAL SERVICES Ot 729.5 PAIN IN LIMB 06/22/2016 GRACIELAFLAVIAVLADISLAV A DIRECTOR FINANCIAL SERVICES Ot 729.81 SWELLING OF LIMB 06/22/2016 Ot 611.72 LUMP OR MASS IN BREAST 06/22/2016 Ot V16.3 FAMILY HX- BREAST MALIG 06/22/2016 GRACIELAFLAVIAVLADISLAV A DIRECTOR FINANCIAL SERVICES Ot 611.6 GALACTORRHEA-NONOBSTET 06/22/2016 GRACIELAFLAVIAVLADISLAV A DIRECTOR FINANCIAL SERVICES Ot 729.5 PAIN IN LIMB 06/22/2016 GRACIELA, VLADISLAV A DIRECTOR FINANCIAL SERVICES Ot 729.81 SWELLING OF LIMB 06/23/2016 VASILE SARMIENTO DO Ot 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 06/23/2016 VAISLE SARMIENTO DO Ot X58.XXXA EXPOSURE TO OTHER SPECIFIED FACTORS, INI 06/23/2016 VASILE SARMIENTO DO Ot Y92.[address] IN [facility] NON-INSTITUT (PRIVATE 06/23/2016 VASILE SARMIENTO DO Ot Y99.8 OTHER EXTERNAL CAUSE STATUS 06/23/2016 VASILE SARMIENTO DO Ot Z23 ENCOUNTER FOR IMMUNIZATION 03/19/2017 GRACIELAFLAVIAVLADISLAV A DIRECTOR FINANCIAL SERVICES Ot 611.6 GALACTORRHEA-NONOBSTET 03/19/2017 GRACIELA VLADISLAV A DIRECTOR FINANCIAL SERVICES Ot 729.5 PAIN IN LIMB 03/19/2017 GRACIELA VLADISLAV A DIRECTOR FINANCIAL SERVICES Ot 729.81 SWELLING OF LIMB 04/19/2017 VIRAL CHILDS DIRECTOR FINANCIAL SERVICES Ot R00.0 TACHYCARDIA, UNSPECIFIED 04/19/2017 VIRAL CHILDS DIRECTOR FINANCIAL SERVICES Ot R06.00 DYSPNEA, UNSPECIFIED 04/19/2017 VIRAL CHILDS DIRECTOR FINANCIAL SERVICES Ot R07.89 OTHER CHEST PAIN 04/19/2017 VIRAL CHILDS DIRECTOR FINANCIAL SERVICES Ot R51 HEADACHE 04/19/2017 GRACIELA VLADISLAV A DIRECTOR FINANCIAL SERVICES Ot 611.6 GALACTORRHEA-NONOBSTET 04/19/2017 GRACIELA, VLADISLAV A DIRECTOR FINANCIAL SERVICES Ot 729.5 PAIN IN LIMB 04/19/2017 VLADISLAV OWENS DIRECTOR FINANCIAL SERVICES Ot 729.81 SWELLING OF LIMB 04/19/2017 USMAN MISTRY MD Ot L23.7 ALLERGIC CONTACT DERMATITIS DUE TO PLANT 04/19/2017 USMAN MISTRY MD Ot R21 RASH AND OTHER NONSPECIFIC SKIN ERUPTION 04/20/2017 VIRAL CHILDS DIRECTOR FINANCIAL SERVICES Ot R00.0 TACHYCARDIA, UNSPECIFIED 04/20/2017 VIRAL CHILDS DIRECTOR FINANCIAL SERVICES Ot R06.00 DYSPNEA, UNSPECIFIED 04/20/2017 VIRAL CHILDS DIRECTOR FINANCIAL SERVICES Ot R07.89 OTHER CHEST PAIN 04/20/2017 VIRAL CHILDS DIRECTOR FINANCIAL SERVICES Ot R51 HEADACHE 04/20/2017 USMAN MISTRY MD Ot I10 ESSENTIAL (PRIMARY) HYPERTENSION 04/20/2017 USMAN MISTRY MD Ot R00.2 PALPITATIONS 04/20/2017 USMAN MISTRY MD T Ot R07.89 OTHER CHEST PAIN 04/20/2017 USMAN MISTRY MD T Ot R07.9 CHEST PAIN, UNSPECIFIED 04/20/2017 USMAN MISTRY MD T Ot R51 HEADACHE 04/21/2017 VIRAL CHILDS DIRECTOR FINANCIAL SERVICES Ot R00.0 TACHYCARDIA, UNSPECIFIED 04/21/2017 VIRAL CHILDS DIRECTOR FINANCIAL SERVICES Ot R06.00 DYSPNEA, UNSPECIFIED 04/21/2017 VIRAL CHILDS DIRECTOR FINANCIAL SERVICES Ot R07.89 OTHER CHEST PAIN 04/21/2017 VIRAL CHILDS DIRECTOR FINANCIAL SERVICES Ot R51 HEADACHE 04/24/2017 USMAN MISTRY MD Ot I10 ESSENTIAL (PRIMARY) HYPERTENSION 04/24/2017 USMAN MISTRY MD T Ot R00.2 PALPITATIONS 04/24/2017 USMAN MISTRY MD T Ot R07.89 OTHER CHEST PAIN 04/24/2017 USMAN MISTRY MD T Ot R07.9 CHEST PAIN, UNSPECIFIED 04/24/2017 USMAN MISTRY MD T Ot R51 HEADACHE 04/28/2017 DANA DON DO Ot I10 ESSENTIAL (PRIMARY) HYPERTENSION 04/28/2017 DANA DON DO Ot N30.91 CYSTITIS, UNSPECIFIED WITH HEMATURIA 04/28/2017 DANA DON DO Ot R55 SYNCOPE AND COLLAPSE 04/28/2017 DANA DON DO, Ot S00.83XA CONTUSION OF OTHER PART OF HEAD, INITIAL 04/28/2017 DANA DON DO, Ot S13.4XXA SPRAIN OF LIGAMENTS OF CERVICAL SPINE, I 04/28/2017 DANA DON DO, Ot W07.XXXA FALL FROM CHAIR, INITIAL ENCOUNTER 04/28/2017 DANA DON DO, Ot Y92.[address] [facility] (PRIVATE 04/28/2017 DANA DON DO Ot Y99.8 OTHER EXTERNAL CAUSE STATUS 04/28/2017 DANA DON DO, Ot Z79.899 OTHER RESIDENTIAL (CURRENT) DRUG THERAPY 04/28/2017 VLADISLAV OWENS DIRECTOR FINANCIAL SERVICES Ot 611.6 GALACTORRHEA-NONOBSTET 04/28/2017 VLADISLAV OWENS DIRECTOR FINANCIAL SERVICES Ot 729.5 PAIN IN LIMB 04/28/2017 VLADISLAV OWENS DIRECTOR FINANCIAL SERVICES Ot 729.81 SWELLING OF LIMB 04/28/2017 FEDE TRIPLETT, USMAN Davis Ot L23.7 ALLERGIC CONTACT DERMATITIS DUE TO PLANT 04/28/2017 FEDE TRIPLETT, USMAN Davis Ot R21 RASH AND OTHER NONSPECIFIC SKIN ERUPTION 04/29/2017 DANA DON DO Ot I10 ESSENTIAL (PRIMARY) HYPERTENSION 04/29/2017 DANA DON DO Ot N30.91 CYSTITIS, UNSPECIFIED WITH HEMATURIA 04/29/2017 DANA DON DO Ot R55 SYNCOPE AND COLLAPSE 04/29/2017 DANA DON DO, Ot S00.83XA CONTUSION OF OTHER PART OF HEAD, INITIAL 04/29/2017 DANA DNO DO, Ot S13.4XXA SPRAIN OF LIGAMENTS OF CERVICAL SPINE, I 04/29/2017 DANA DON DO, Ot W07.XXXA FALL FROM CHAIR, INITIAL ENCOUNTER 04/29/2017 DANA DON DO, Ot Y92.[address] [facility] 04/29/2017 DANA DON DO Ot Y99.8 OTHER EXTERNAL CAUSE STATUS 04/29/2017 DANA DON DO, Ot 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 05/06/2017 RAEANN RAINES Ot F32.9 MAJOR DEPRESSIVE DISORDER, SINGLE EPISOD 05/06/2017 RAEANN RAINES Ot F41.9 ANXIETY DISORDER, UNSPECIFIED 05/06/2017 RAEANN RAINES Ot G44.209 TENSION-TYPE HEADACHE, UNSPECIFIED, NOT 05/06/2017 RAEANN RAINES Ot I10 ESSENTIAL (PRIMARY) HYPERTENSION 05/06/2017 RAEANN RAINES Ot R51 HEADACHE 05/06/2017 RAEANN RAINES Ot S09.90XD UNSPECIFIED INJURY OF HEAD, SUBSEQUENT E 05/06/2017 RAEANN RAINES Ot S16.1XXD STRAIN OF MUSCLE, FASCIA AND TENDON AT N 05/06/2017 RAEANN RAINES Ot W19.XXXD UNSPECIFIED FALL, SUBSEQUENT ENCOUNTER 05/06/2017 RAEANN RAINES Ot Z86.73 PRSNL HX OF TIA (TIA), AND CEREB INFRC W 05/06/2017 VLADISLAV OWENS DIRECTOR FINANCIAL SERVICES Ot 611.6 GALACTORRHEA-NONOBSTET 05/06/2017 VLADISLAV OWENS DIRECTOR FINANCIAL SERVICES Ot 729.5 PAIN IN LIMB 05/06/2017 VLADISLAV OWENS DIRECTOR FINANCIAL SERVICES Ot 729.81 SWELLING OF LIMB 05/06/2017 FEDE TRIPLETT, USMAN Davis Ot L23.7 ALLERGIC CONTACT DERMATITIS DUE TO PLANT 05/06/2017 FEDE TRIPLETT, USMAN Davis Ot R21 RASH AND OTHER NONSPECIFIC SKIN ERUPTION 05/10/2017 VIRAL CHILDS DIRECTOR FINANCIAL SERVICES Ot I10 ESSENTIAL (PRIMARY) HYPERTENSION 05/10/2017 VIRAL CHILDS DIRECTOR FINANCIAL SERVICES Ot M54.2 CERVICALGIA 05/10/2017 VIRAL CHILDS DIRECTOR FINANCIAL SERVICES Ot R51 HEADACHE 05/10/2017 VIRAL CHILDS APRN Ot Z86.73 PRSNL HX OF TIA (TIA), AND CEREB INFRC W 05/13/2017 RAEANN RAINES Ot F32.9 MAJOR DEPRESSIVE DISORDER, SINGLE EPISOD 05/13/2017 RAEANN RAINES Ot F41.9 ANXIETY DISORDER, UNSPECIFIED 05/13/2017 RAEANN RAINES Ot G44.209 TENSION-TYPE HEADACHE, UNSPECIFIED, NOT 05/13/2017 RAEANN RAINES Ot I10 ESSENTIAL (PRIMARY) HYPERTENSION 05/13/2017 RAEANN RAINES Ot R51 HEADACHE 05/13/2017 RAEANN RAINES Ot S09.90XD UNSPECIFIED INJURY OF HEAD, SUBSEQUENT E 05/13/2017 RAEANN RAINES Ot S16.1XXD STRAIN OF MUSCLE, FASCIA AND TENDON AT N 05/13/2017 RAEANN RAINES Ot W19.XXXD UNSPECIFIED FALL, SUBSEQUENT ENCOUNTER 05/13/2017 RAEANN RAINES Ot Z86.73 PRSNL HX OF TIA (TIA), AND CEREB INFRC W 05/14/2017 VIRAL CHILDS APRN Ot I10 ESSENTIAL (PRIMARY) HYPERTENSION 05/14/2017 VIRAL CHILDS APRN Ot M54.2 CERVICALGIA 05/14/2017 VIRAL CHILDS APRN Ot R51 HEADACHE 05/14/2017 VIRAL CHLIDS APRN Ot Z86.73 PRSNL HX OF TIA (TIA), AND CEREB INFRC W 08/07/2017 VLADISLAV OWENS DIRECTOR FINANCIAL SERVICES Ot 611.6 GALACTORRHEA-NONOBSTET 08/07/2017 VLADISLAV OWENS DIRECTOR FINANCIAL SERVICES Ot 729.5 PAIN IN LIMB 08/07/2017 VLADISLAV OWENS DIRECTOR FINANCIAL SERVICES Ot 729.81 SWELLING OF LIMB 08/07/2017 FEDE TRIPLETT, USMAN Davis Ot L23.7 ALLERGIC CONTACT DERMATITIS DUE TO PLANT 08/07/2017 FEDE TRIPLETT, USMAN Davis Ot R21 RASH AND OTHER NONSPECIFIC SKIN ERUPTION 08/07/2017 VIRAL CHILDS APRN Ot E78.00 PURE HYPERCHOLESTEROLEMIA, UNSPECIFIED 08/07/2017 VIRAL CHILDS APRN Ot F32.9 MAJOR DEPRESSIVE DISORDER, SINGLE EPISOD 08/07/2017 VIRAL CHILDS APRN Ot F41.9 ANXIETY DISORDER, UNSPECIFIED 08/07/2017 VIRAL CHILDS APRN Ot G43.909 MIGRAINE, UNSP, NOT INTRACTABLE, WITHOUT 08/07/2017 VIRAL CHILDS APRN Ot I10 ESSENTIAL (PRIMARY) HYPERTENSION 08/07/2017 VIRAL CHILDS APRN Ot K22.9 DISEASE OF ESOPHAGUS, UNSPECIFIED 08/07/2017 VIRAL CHILDS APRN Ot M41.20 OTHER IDIOPATHIC SCOLIOSIS, SITE UNSPECI 08/07/2017 VIRAL CHILDS APRN Ot Z80.1 FAMILY HISTORY OF MALIG NEOPLASM OF TRAC 08/07/2017 VIRAL CHILDS APRN Ot Z82.49 FAMILY HX OF ISCHEM HEART DIS AND OTH DI 08/07/2017 VLADISLAV OWENS Scott DIRECTOR FINANCIAL SERVICES Ot 611.6 GALACTORRHEA-NONOBSTET 08/07/2017 VLADISLAV OWENS DIRECTOR FINANCIAL SERVICES Ot 729.5 PAIN IN LIMB 08/07/2017 FLAVIA OWENSGAUDENCIO Chavez DIRECTOR FINANCIAL SERVICES Ot 729.81 SWELLING OF LIMB 08/07/2017 FEDE TRIPLETT, USMAN Davis Ot L23.7 ALLERGIC CONTACT DERMATITIS DUE TO PLANT 08/07/2017 FEDE TRIPLETT, USMAN Davis Ot R21 RASH AND OTHER NONSPECIFIC SKIN ERUPTION 08/09/2017 VIRAL CHILDS APRN Ot E78.00 PURE HYPERCHOLESTEROLEMIA, UNSPECIFIED 08/09/2017 VIRAL CHILDS APRN Ot F32.9 MAJOR DEPRESSIVE DISORDER, SINGLE EPISOD 08/09/2017 VIRAL CHILDS APRN Ot F41.9 ANXIETY DISORDER, UNSPECIFIED 08/09/2017 VIRAL CHILDS APRN Ot G43.909 MIGRAINE, UNSP, NOT INTRACTABLE, WITHOUT 08/09/2017 VIRAL CHILDS APRN Ot I10 ESSENTIAL (PRIMARY) HYPERTENSION 08/09/2017 VIRAL CHILDS APRN Ot K22.9 DISEASE OF ESOPHAGUS, UNSPECIFIED 08/09/2017 VIRAL CHILDS APRN Ot M41.20 OTHER IDIOPATHIC SCOLIOSIS, SITE UNSPECI 08/09/2017 VIRAL CHILDS APRN Ot Z80.1 FAMILY HISTORY OF MALIG NEOPLASM OF TRAC 08/09/2017 VIRAL CHILDS APRN Ot Z82.49 FAMILY HX OF ISCHEM HEART DIS AND OTH DI Procedures Code Description Performed By Performed On 99.10 INJECT/INFUSE THROMBOLYTIC AGENT 11/20/2011 88138 ROUTINE VENIPUNCTURE 11/10/2013 [id number] GFR CALC (RESULT ONLY) 11/10/2013 24567 CMP 11/10/2013 24675 LIPID PANEL 11/10/2013 34732 MAMMOGRAM DX, ABHINAV 10/15/2014 94523 GC/CHLAM PROBE (STATE) 10/15/2014 40441 PAP SMEAR 10/15/2014 Q0091 PAP SMEAR OBTAIN SMEAR 10/15/2014 74868 TRICHOMONAS (IN-HOUSE) 10/15/2014 45752 CULTURE UROGENITAL 10/18/2014 89575 ROUTINE VENIPUNCTURE 10/29/2014 69792 PROLACTIN 10/29/2014 36908 TSH 10/29/2014 97473 TRICHOMONAS (IN-HOUSE) 03/15/2015 62894 CULTURE UROGENITAL 03/16/2015 44631 GC/CHLAM PROBE (STATE) 03/16/2015 Results Test Result Range Complete blood count (CBC) with automated white blood cell (WBC) differential - 04/19/17 14:15 Blood leukocytes automated count (number/volume) 6.5 10*3/uL 4.3-11.0 Blood erythrocytes automated count (number/volume) 4.66 10*6/uL 4.35-5.85 Venous blood hemoglobin measurement (mass/volume) 9.9 g/dL 11.5-16.0 Blood hematocrit (volume fraction) 33 % 35-52 Automated erythrocyte mean corpuscular volume 71 [foz_us] 80-99 Automated erythrocyte mean corpuscular hemoglobin (mass per erythrocyte) 21 pg 25-34 Automated erythrocyte mean corpuscular hemoglobin concentration measurement ( mass/volume) 30 g/dL 32-36 Automated erythrocyte distribution width ratio 18.0 % 10.0-14.5 Automated blood platelet count (count/volume) 322 10*3/uL 130-400 Automated blood platelet mean volume measurement 11.0 [foz_us] 7.4-10.4 Automated blood neutrophils/100 leukocytes 57 % 42-75 Automated blood lymphocytes/100 leukocytes 36 % 12-44 Blood monocytes/100 leukocytes 4 % 0-12 Automated blood eosinophils/100 leukocytes 3 % 0-10 Automated blood basophils/100 leukocytes 1 % 0-10 Blood neutrophils automated count (number/volume) 3.7 10*3 1.8-7.8 Blood lymphocytes automated count (number/volume) 2.3 10*3 1.0-4.0 Blood monocytes automated count (number/volume) 0.3 10*3 0.0-1.0 Automated eosinophil count 0.2 10*3/uL 0.0-0.3 Automated blood basophil count (count/volume) 0.0 10*3/uL 0.0-0.1 PT panel in platelet poor plasma by coagulation assay - 04/19/17 14:15 Prothrombin time (PT) in platelet poor plasma by coagulation assay 12.9 s 12.2-14.7 INR in platelet poor plasma or blood by coagulation assay 1.0 0.8-1.4 Activated partial thromboplastin time (aPTT) in platelet poor plasma bycoagulation assay - 04/19/17 14:15 Activated partial thromboplastin time (aPTT) in platelet poor plasma bycoagulation assay 25 s 24-35 Comprehensive metabolic panel - 04/19/17 14:15 Serum or plasma sodium measurement (moles/volume) 141 mmol/L 135-145 Serum or plasma potassium measurement (moles/volume) 3.9 mmol/L 3.6-5.0 Serum or plasma chloride measurement (moles/volume) 109 mmol/L 98-107 Carbon dioxide 24 mmol/L 21-32 Serum or plasma anion gap determination (moles/volume) 8 mmol/L 5-14 Serum or plasma urea nitrogen measurement (mass/volume) 16 mg/dL 7-18 Serum or plasma creatinine measurement (mass/volume) 0.89 mg/dL 0.60-1.30 Serum or plasma urea nitrogen/creatinine mass ratio 18 NRG Serum or plasma creatinine measurement with calculation of estimated glomerular filtration rate > NRG Serum or plasma glucose measurement (mass/volume) 132 mg/dL 70-105 Serum or plasma calcium measurement (mass/volume) 9.9 mg/dL 8.5-10.1 Serum or plasma total bilirubin measurement (mass/volume) 0.5 mg/dL 0.1-1.0 Serum or plasma alkaline phosphatase measurement (enzymatic activity/volume) 98 U/L 40-136 Serum or plasma aspartate aminotransferase measurement (enzymatic activity/ volume) 19 U/L 5-34 Serum or plasma alanine aminotransferase measurement (enzymatic activity/volume ) 16 U/L 0-55 Serum or plasma protein measurement (mass/volume) 7.5 g/dL 6.4-8.2 Serum or plasma albumin measurement (mass/volume) 4.2 g/dL 3.2-4.5 Magnesium - 04/19/17 14:15 Magnesium 2.1 mg/dL 1.8-2.4 Serum or plasma troponin i.cardiac measurement (mass/volume) - 04/19/17 14:15 Serum or plasma troponin i.cardiac measurement (mass/volume) < ng/ mL <0.30 Myoglobin, serum - 04/19/17 14:15 Myoglobin, serum 24.9 ng/mL 10.0-92.0 THYROID STIMULATING HORMONE - 04/19/17 14:15 THYROID STIMULATING HORMONE 1.61 u[iU]/mL 0.35-4.94 Serum or plasma choriogonadotropin ( test) detection - 04/19/17 16:02 Serum or plasma choriogonadotropin ( test) detection NEGATIVE NEGATIVE Serum or plasma troponin i.cardiac measurement (mass/volume) - 04/19/17 16:22 Serum or plasma troponin i.cardiac measurement (mass/volume) < ng/ mL <0.30 Complete blood count (CBC) with automated white blood cell (WBC) differential - 04/20/17 21:05 Blood leukocytes automated count (number/volume) 7.3 10*3/uL 4.3-11.0 Blood erythrocytes automated count (number/volume) 4.48 10*6/uL 4.35-5.85 Venous blood hemoglobin measurement (mass/volume) 9.7 g/dL 11.5-16.0 Blood hematocrit (volume fraction) 32 % 35-52 Automated erythrocyte mean corpuscular volume 72 [foz_us] 80-99 Automated erythrocyte mean corpuscular hemoglobin (mass per erythrocyte) 22 pg 25-34 Automated erythrocyte mean corpuscular hemoglobin concentration measurement ( mass/volume) 30 g/dL 32-36 Automated erythrocyte distribution width ratio 17.9 % 10.0-14.5 Automated blood platelet count (count/volume) 322 10*3/uL 130-400 Automated blood platelet mean volume measurement 10.2 [foz_us] 7.4-10.4 Automated blood neutrophils/100 leukocytes 49 % 42-75 Automated blood lymphocytes/100 leukocytes 41 % 12-44 Blood monocytes/100 leukocytes 6 % 0-12 Automated blood eosinophils/100 leukocytes 3 % 0-10 Automated blood basophils/100 leukocytes 1 % 0-10 Blood neutrophils automated count (number/volume) 3.6 10*3 1.8-7.8 Blood lymphocytes automated count (number/volume) 3.0 10*3 1.0-4.0 Blood monocytes automated count (number/volume) 0.4 10*3 0.0-1.0 Automated eosinophil count 0.3 10*3/uL 0.0-0.3 Automated blood basophil count (count/volume) 0.0 10*3/uL 0.0-0.1 PT panel in platelet poor plasma by coagulation assay - 04/20/17 21:05 Prothrombin time (PT) in platelet poor plasma by coagulation assay 13.3 s 12.2-14.7 INR in platelet poor plasma or blood by coagulation assay 1.0 0.8-1.4 Activated partial thromboplastin time (aPTT) in platelet poor plasma bycoagulation assay - 04/20/17 21:05 Activated partial thromboplastin time (aPTT) in platelet poor plasma bycoagulation assay 26 s 24-35 Comprehensive metabolic panel - 04/20/17 21:05 Serum or plasma sodium measurement (moles/volume) 142 mmol/L 135-145 Serum or plasma potassium measurement (moles/volume) 3.5 mmol/L 3.6-5.0 Serum or plasma chloride measurement (moles/volume) 107 mmol/L 98-107 Carbon dioxide 22 mmol/L 21-32 Serum or plasma anion gap determination (moles/volume) 13 mmol/L 5-14 Serum or plasma urea nitrogen measurement (mass/volume) 12 mg/dL 7-18 Serum or plasma creatinine measurement (mass/volume) 0.86 mg/dL 0.60-1.30 Serum or plasma urea nitrogen/creatinine mass ratio 14 NRG Serum or plasma creatinine measurement with calculation of estimated glomerular filtration rate > NRG Serum or plasma glucose measurement (mass/volume) 97 mg/dL 70-105 Serum or plasma calcium measurement (mass/volume) 9.7 mg/dL 8.5-10.1 Serum or plasma total bilirubin measurement (mass/volume) 0.4 mg/dL 0.1-1.0 Serum or plasma alkaline phosphatase measurement (enzymatic activity/volume) 94 U/L 40-136 Serum or plasma aspartate aminotransferase measurement (enzymatic activity/ volume) 20 U/L 5-34 Serum or plasma alanine aminotransferase measurement (enzymatic activity/volume ) 17 U/L 0-55 Serum or plasma protein measurement (mass/volume) 7.5 g/dL 6.4-8.2 Serum or plasma albumin measurement (mass/volume) 4.2 g/dL 3.2-4.5 Magnesium - 04/20/17 21:05 Magnesium 2.3 mg/dL 1.8-2.4 Serum or plasma troponin i.cardiac measurement (mass/volume) - 04/20/17 21:05 Serum or plasma troponin i.cardiac measurement (mass/volume) < ng/ mL <0.30 Myoglobin, serum - 04/20/17 21:05 Myoglobin, serum 20.8 ng/mL 10.0-92.0 Complete urinalysis with reflex to culture - 04/28/17 00:35 Urine color determination RED NRG Urine clarity determination SLIGHTLY CLOUDY NRG Urine pH measurement by test strip 6 5-9 Specific gravity of urine by test strip 1.020 1.016- 1.022 Urine protein assay by test strip, semi-quantitative 3+ NEGATIVE Urine glucose detection by automated test strip NEGATIVE NEGATIVE Erythrocytes detection in urine sediment by light microscopy 5+ NEGATIVE Urine ketones detection by automated test strip 1+ NEGATIVE Urine nitrite detection by test strip POSITIVE NEGATIVE Urine total bilirubin detection by test strip NEGATIVE NEGATIVE Urine urobilinogen measurement by automated test strip (mass/volume) 4 mg/dL NORMAL Urine leukocyte esterase detection by dipstick 2+ NEGATIVE Automated urine sediment erythrocyte count by microscopy (number/high power field) TNTC NRG Automated urine sediment leukocyte count by microscopy (number/high power field ) [HPF] NRG Bacteria detection in urine sediment by light microscopy FEW NRG Crystals detection in urine sediment by light microscopy NONE NRG Casts detection in urine sediment by light microscopy NONE NRG Mucus detection in urine sediment by light microscopy NEGATIVE NRG Complete urinalysis with reflex to culture YES NRG Urine drug screening test - 04/28/17 00:35 Urine phencyclidine detection by screening method NEGATIVE NEGATIVE Urine benzodiazepines detection by screening method NEGATIVE NEGATIVE Urine cocaine detection NEGATIVE NEGATIVE Urine amphetamines detection by screening method NEGATIVE NEGATIVE Urine methamphetamine detection by screening method NEGATIVE NEGATIVE Urine cannabinoids detection by screening method NEGATIVE NEGATIVE Urine opiates detection by screening method NEGATIVE NEGATIVE Urine barbiturates detection NEGATIVE NEGATIVE Screening urine tricyclic antidepressants detection NEGATIVE NEGATIVE Urine methadone detection by screening method NEGATIVE NEGATIVE Urine oxycodone detection NEGATIVE NEGATIVE Urine propoxyphene detection NEGATIVE NEGATIVE Bacterial urine culture - 04/28/17 00:35 URINE CULTURE RESULTS <10,000/ML NRG Complete blood count (CBC) with automated white blood cell (WBC) differential - 04/28/17 00:40 Blood leukocytes automated count (number/volume) 7.6 10*3/uL 4.3-11.0 Blood erythrocytes automated count (number/volume) 4.43 10*6/uL 4.35-5.85 Venous blood hemoglobin measurement (mass/volume) 9.4 g/dL 11.5-16.0 Blood hematocrit (volume fraction) 32 % 35-52 Automated erythrocyte mean corpuscular volume 72 [foz_us] 80-99 Automated erythrocyte mean corpuscular hemoglobin (mass per erythrocyte) 21 pg 25-34 Automated erythrocyte mean corpuscular hemoglobin concentration measurement ( mass/volume) 30 g/dL 32-36 Automated erythrocyte distribution width ratio 18.3 % 10.0-14.5 Automated blood platelet count (count/volume) 335 10*3/uL 130-400 Automated blood platelet mean volume measurement 10.1 [foz_us] 7.4-10.4 Automated blood neutrophils/100 leukocytes 51 % 42-75 Automated blood lymphocytes/100 leukocytes 39 % 12-44 Blood monocytes/100 leukocytes 6 % 0-12 Automated blood eosinophils/100 leukocytes 3 % 0-10 Automated blood basophils/100 leukocytes 1 % 0-10 Blood neutrophils automated count (number/volume) 3.9 10*3 1.8-7.8 Blood lymphocytes automated count (number/volume) 2.9 10*3 1.0-4.0 Blood monocytes automated count (number/volume) 0.5 10*3 0.0-1.0 Automated eosinophil count 0.3 10*3/uL 0.0-0.3 Automated blood basophil count (count/volume) 0.1 10*3/uL 0.0-0.1 Fibrin D-dimer FEU measurement in platelet poor plasma (mass/volume) - 00:40 Fibrin D-dimer FEU measurement in platelet poor plasma (mass/volume) 0.70 ug/mL 0.00-0.49 Comprehensive metabolic panel - 04/28/17 00:40 Serum or plasma sodium measurement (moles/volume) 139 mmol/L 135-145 Serum or plasma potassium measurement (moles/volume) 3.8 mmol/L 3.6-5.0 Serum or plasma chloride measurement (moles/volume) 106 mmol/L 98-107 Carbon dioxide 23 mmol/L 21-32 Serum or plasma anion gap determination (moles/volume) 10 mmol/L 5-14 Serum or plasma urea nitrogen measurement (mass/volume) 21 mg/dL 7-18 Serum or plasma creatinine measurement (mass/volume) 0.82 mg/dL 0.60-1.30 Serum or plasma urea nitrogen/creatinine mass ratio 26 NRG Serum or plasma creatinine measurement with calculation of estimated glomerular filtration rate > NRG Serum or plasma glucose measurement (mass/volume) 101 mg/dL 70-105 Serum or plasma calcium measurement (mass/volume) 9.7 mg/dL 8.5-10.1 Serum or plasma total bilirubin measurement (mass/volume) 0.3 mg/dL 0.1-1.0 Serum or plasma alkaline phosphatase measurement (enzymatic activity/volume) 100 U/L 40-136 Serum or plasma aspartate aminotransferase measurement (enzymatic activity/ volume) 19 U/L 5-34 Serum or plasma alanine aminotransferase measurement (enzymatic activity/volume ) 12 U/L 0-55 Serum or plasma protein measurement (mass/volume) 7.7 g/dL 6.4-8.2 Serum or plasma albumin measurement (mass/volume) 4.2 g/dL 3.2-4.5 Magnesium - 04/28/17 00:40 Magnesium 2.5 mg/dL 1.8-2.4 Serum or plasma troponin i.cardiac measurement (mass/volume) - 04/28/17 00:40 Serum or plasma troponin i.cardiac measurement (mass/volume) < ng/ mL <0.30 Complete urinalysis with reflex to culture - 05/10/17 13:32 Urine color determination YELLOW NRG Urine clarity determination SLIGHTLY CLOUDY NRG Urine pH measurement by test strip 6 5-9 Specific gravity of urine by test strip 1.020 1.016- 1.022 Urine protein assay by test strip, semi-quantitative 1+ NEGATIVE Urine glucose detection by automated test strip NEGATIVE NEGATIVE Erythrocytes detection in urine sediment by light microscopy NEGATIVE NEGATIVE Urine ketones detection by automated test strip NEGATIVE NEGATIVE Urine nitrite detection by test strip NEGATIVE NEGATIVE Urine total bilirubin detection by test strip NEGATIVE NEGATIVE Urine urobilinogen measurement by automated test strip (mass/volume) NORMAL NORMAL Urine leukocyte esterase detection by dipstick 1+ NEGATIVE Automated urine sediment erythrocyte count by microscopy (number/high power field) NONE NRG Automated urine sediment leukocyte count by microscopy (number/high power field ) NONE NRG Bacteria detection in urine sediment by light microscopy NEGATIVE NRG Squamous epithelial cells detection in urine sediment by light microscopy 25-50 NRG Crystals detection in urine sediment by light microscopy NONE NRG Casts detection in urine sediment by light microscopy NONE NRG Mucus detection in urine sediment by light microscopy NEGATIVE NRG Complete urinalysis with reflex to culture NO NRG Complete urinalysis with reflex to culture - 08/07/17 20:45 Urine color determination YELLOW NRG Urine clarity determination CLEAR NRG Urine pH measurement by test strip 6 5-9 Specific gravity of urine by test strip 1.010 1.016- 1.022 Urine protein assay by test strip, semi-quantitative NEGATIVE NEGATIVE Urine glucose detection by automated test strip NEGATIVE NEGATIVE Erythrocytes detection in urine sediment by light microscopy NEGATIVE NEGATIVE Urine ketones detection by automated test strip NEGATIVE NEGATIVE Urine nitrite detection by test strip NEGATIVE NEGATIVE Urine total bilirubin detection by test strip NEGATIVE NEGATIVE Urine urobilinogen measurement by automated test strip (mass/volume) NORMAL NORMAL Urine leukocyte esterase detection by dipstick NEGATIVE NEGATIVE Automated urine sediment erythrocyte count by microscopy (number/high power field) NONE NRG Automated urine sediment leukocyte count by microscopy (number/high power field ) RARE NRG Bacteria detection in urine sediment by light microscopy NEGATIVE NRG Squamous epithelial cells detection in urine sediment by light microscopy 2-5 NRG Crystals detection in urine sediment by light microscopy NONE NRG Casts detection in urine sediment by light microscopy NONE NRG Mucus detection in urine sediment by light microscopy NEGATIVE NRG Complete urinalysis with reflex to culture NO NRG Encounters ACCT No. Visit Date/Time Discharge Status Pt. Type Provider Facility Loc./Unit Complaint [id number] 03/15/2015 17:47:00 03/15/2015 23:59:59 CLS Outpatient VLADISLAV OWENS APRN [id number] 10/15/2014 10:50:00 10/15/2014 23:59:59 CLS Outpatient VLADISLAV OWENS APRN [id number] 10/15/2014 10:50:00 10/15/2014 23:59:59 CLS Outpatient VLADISLAV OWENS APRN [id number] 11/10/2013 08:20:00 11/10/2013 23:59:59 CLS Outpatient RENETTA CARPIO MD [id number] 08/29/2013 15:10:00 08/29/2013 23:59:59 CLS Outpatient CONSTANTIN MCNAIR DDS [id number] 02/20/2012 09:24:00 Document Registration [id number] 08/07/2017 20:01:00 08/07/2017 22:34:00 DIS Emergency VIRAL CHILDS APRN [facility] ER PT FEELS LIKE SOMETHING IS STUCK IN HER THROAT [id number] 05/10/2017 13:13:00 05/10/2017 15:05:00 DIS Emergency VIRAL CHILDS APRN [facility] ER LEFT SIDE HEAD/NECK/ SHOULDER PAIN [id number] 05/06/2017 18:33:00 05/06/2017 20:33:00 DIS Emergency RAEANN RAINES [facility] ER HEADACHE/NECK PAIN [id number] 04/27/2017 23:38:00 04/28/2017 03:37:00 DIS Emergency DANA DON DO [facility] ER PASSED OUT,HEAD RT CHECK PAINFUL [id number] 04/20/2017 20:57:00 04/20/2017 22:28:00 DIS Emergency USMAN MISTRY MD [facility] ER PALPITATIONS/SOB/ TIGHT IN CHEST/SWELLING/HEADACHE [id number] 04/19/2017 14:04:00 04/19/2017 17:29:00 DIS Emergency VIRAL CHILDS APRN [facility] ER RAPID HEART RATE FATIGUE HEADACHE [id number] 03/19/2017 12:55:00 03/19/2017 23:59:59 CLS Emergency USMAN MISTRY MD [facility] ER RASH/POSS POISON VALENTINE [id number] 03/09/2016 04:39:00 03/09/2016 05:12:00 DIS Emergency VASILE SARMIENTO DO [facility] ER FO IN RT EYE [id number] 01/05/2016 01:10:00 01/05/2016 02:35:00 DIS Emergency MARK GODOY MD [facility] ER PAIN ALL OVER,VOMITING ,CHILLS [id number] 01/03/2016 14:29:00 01/03/2016 18:20:00 DIS Emergency RAEANN RAINES [facility] ER GENERAL PAIN/SOA [id number] 10/01/2015 13:19:00 10/01/2015 15:43:00 DIS Emergency JENN TRIPLETT, LAUREN Ledesma [facility] ER CHEST PAIN [id number] 09/06/2015 12:58:00 09/06/2015 13:50:00 DIS Emergency VIRAL CHILDS APRN [facility] ER RASH/SKIN ISSUES [id number] 07/01/2015 07:27:00 07/01/2015 08:54:00 DIS Emergency VASILE SARMIENTO DO [facility] ER BACK PAIN;RASH [id number] 05/12/2015 02:43:00 05/12/2015 04:16:00 DIS Emergency VASILE SARMIENTO DO [facility] ER HEAD ACHE [id number] 02/28/2015 20:05:00 02/28/2015 21:25:00 DIS Emergency VIRAL CHILDS APRN [facility] ER DIZZINESS,LETHARGIC [id number] 10/20/2014 11:55:00 10/20/2014 23:59:59 CLS Outpatient VLADISLAV OWENS APRN [facility] RAD BILATERAL DUCTAL PAIN AND SWELLING [id number] 10/12/2014 13:33:00 10/12/2014 15:13:00 DIS Emergency VASILE SARMIENTO DO [facility] ER HEADACHE BREAST DISCHARGE/ PAIN [id number] 07/08/2014 22:37:00 07/09/2014 12:30:00 DIS Inpatient PIERCE TRIPLETT, KEYLA Elise [facility] 4TH LEFT SIDED NUMBNESS; HEADACHE [id number] 07/02/2014 12:15:00 07/02/2014 14:24:00 DIS Emergency VASILE SRAMIENTO DO [facility] ER HEART FLUTTERING [id number] 03/25/2014 17:37:00 03/25/2014 18:46:00 DIS Emergency MARK GODOY MD [facility] ER BACK PAIN [id number] 02/19/2014 18:28:00 02/19/2014 20:47:00 DIS Emergency RAEANN RAINES [facility] ER BACK PAIN [id number] 06/22/2016 13:59:00 Document Registration [id number] 06/22/2016 13:59:00 Document Registration [id number] 12/29/2015 01:40:00 Document Registration [id number] 11/23/2011 13:15:00 Document Registration [id number] 11/20/2011 21:45:00 Document Registration [id number] 07/02/2011 03:16:00 Document Registration [id number] 05/03/2011 09:02:00 Document Registration [id number] 09/23/2008 14:45:00 Document Registration
[2018-02-06 14:35] LABS: BILIRUBIN,URINE NEGATIVE (NEGATIVE); CLARITY,URINE SLIGHTLY CLOUDY; COLOR,URINE YELLOW; GLUCOSE, URINE (UA) NEGATIVE (NEGATIVE); KETONES,URINE 1+ (NEGATIVE); LEUKOCYTE ESTERASE ,URINE 1+ (NEGATIVE); NITRITE,URINE NEGATIVE (NEGATIVE); PH,URINE 7 (5-9); PROTEIN,URINE 2+ (NEGATIVE); UROBILINOGEN,URINE 1 MG/DL (NORMAL)
[2018-02-06 14:45] LABS: BACTERIA,URINE TRACE /HPF; RBC,URINE >100 /HPF; SQUAMOUS EPITHELIAL CELL,UR >50 /HPF; WBC,URINE RARE /HPF
[2018-02-06 14:52] LABS: BASOPHILS # (AUTO) 0.1 10^3/uL (0.0-0.1); BASOPHILS % (AUTO) 1 % (0-10); EOSINOPHILS # (AUTO) 0.3 10^3/uL (0.0-0.3); EOSINOPHILS % (AUTO) 6 % (0-10); HEMATOCRIT 42 % (35-52); HEMOGLOBIN 14.1 G/DL (11.5-16.0); LYMPHOCYTES # (AUTO) 1.9 X 10^3 (1.0-4.0); LYMPHOCYTES % (AUTO) 35 % (12-44); MEAN CORPUSCULAR HEMOGLOBIN 29 PG (25-34); MEAN CORPUSCULAR HGB CONC 34 G/DL (32-36); MEAN CORPUSCULAR VOLUME 87 FL (80-99); MEAN PLATELET VOLUME 10.7 FL (7.4-10.4); MONOCYTES # (AUTO) 0.3 X 10^3 (0.0-1.0); MONOCYTES % (AUTO) 6 % (0-12); NEUTROPHILS # (AUTO) 2.9 X 10^3 (1.8-7.8); NEUTROPHILS % (AUTO) 53 % (42-75); PLATELET COUNT 240 10^3/uL (130-400); RED BLOOD COUNT 4.79 10^6/uL (4.35-5.85); WHITE BLOOD COUNT 5.6 10^3/uL (4.3-11.0)
[2018-02-06 14:54] LABS: AMPHETAMINE SCREEN, URINE NEGATIVE (NEGATIVE); BARBITURATE SCREEN URINE NEGATIVE (NEGATIVE); BENZODIAZEPINES SCREEN URINE NEGATIVE (NEGATIVE); CANNABINOID SCREEN, URINE NEGATIVE (NEGATIVE); COCAINE SCREEN URINE NEGATIVE (NEGATIVE); METHADONE STAT NEGATIVE (NEGATIVE); METHAMPHETAMINE SCREEN URINE S NEGATIVE (NEGATIVE); OPIATE SCREEN URINE NEGATIVE (NEGATIVE); OXYCODONE STAT NEGATIVE (NEGATIVE); PROPOXYPHENE STAT NEGATIVE (NEGATIVE); TRICYCLIC ANTIDEPRESSANTS SCRE NEGATIVE (NEGATIVE)
--- NOTE | 2018-02-06 14:57 | ED Neurological Problem ---
General Chief Complaint: General Problems/Pain Stated Complaint: OFF BALANCE Nursing Triage Note: TO ROOM C/O NOT FEELING WELL FOR 1 MONTH. FEELING DIZZY AN D OFF BALANCE. WITH L SHOULDER PAIN AND AT NIGHT PAIN GOES DOWN L LEG. Nursing Sepsis Screen: No Definite Risk Source: patient Exam Limitations: no limitations History of Present Illness Date Seen by Provider: Feb 06, 2018 Time Seen by Provider: 14:57 Allergies and Home Medications Allergies Coded Allergies: morphine (Verified Allergy, Unknown, 04/27/17) Home Medications Cyclobenzaprine HCl 10 Mg Tablet, 10 MG PO Q8H PRN for neck spasm Prescribed by: DANA DON on 04/28/17328 Diclofenac Sodium 50 Mg Tablet.dr, 50 MG PO Q6H PRN for neck/facial pain Prescribed by: DANA DON on 04/28/17328 Famotidine 20 Mg Tablet, 20 MG PO BID Prescribed by: RAEANN SILVA on 01/03/16 1742 Orphenadrine Citrate 100 Mg Tablet.er, 100 MG PO BID PRN for SPASMS Prescribed by: RAEANN SILVA on 05/06/172027 Pantoprazole Sodium 40 Mg Tablet.dr, 40 MG PO DAILY Prescribed by: VIRAL CHILDS on 08/07/172208 Paroxetine HCl 40 Mg Tablet, 40 MG PO DAILY, (Reported) Tramadol HCl 50 Mg Tablet, 50-100 MG PO Q4H PRN for PAIN-MILD TO MODERATE Prescribed by: RAEANN SILVA on 05/06/172027 Past Chnjwhh-Clfbnj-Qbmvco Hx Patient Social History Alcohol Use: Denies Use Recreational Drug Use: No Smoking Status: Never a Smoker 2nd Hand Smoke Exposure: No Recent Foreign Travel: No Contact w/Someone Who Travel: No Recent Infectious Disease Expo: No Recent Hopitalizations: No Immunizations Up To Date Tetanus Booster (TDap): More than 5yrs Date of Pneumonia Vaccine: Dec 30, 2015 Seasonal Allergies Seasonal Allergies: No Surgeries History of Surgeries: Yes (WISDOM TEETH) Respiratory History of Respiratory Disorde: No Cardiovascular History of Cardiac Disorders: Yes (tachycardia) Cardiac Disorders: High Cholesterol, Hypertension Neurological History of Neurological Disord: Yes (OCCASIONAL HEADACHES) Neurological Disorders: Concussion, Headaches /Migraines, Stroke 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 System Hx 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 Disorders: No Sexually Transmitted Disease: No 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 Genitourinary History of Genitourinary Disor: No Gastrointestinal History of Gastrointestinal Di: No Musculoskeletal History of Musculoskeletal Dis: Yes (CHRONIC NECK PAIN) Musculoskeletal Disorders: Scoliosis, Chronic Back Pain Endocrine History of Endocrine Disorders: No HEENT History of HEENT Disorders: No Cancer History of Cancer: No Psychosocial History of Psychiatric Problem: Yes Behavioral Health Disorders: Anxiety, Depression Integumentary History of Skin or Integumenta: No Skin/Integumentary Disorders: Recent Skin Changes Blood Transfusions History of Blood Disorders: No Family Medical History Significant Family History: Heart Disease, Cancer Family Medial History: Cardiovascular disease FH: breast cancer 19 MOTHER (METS) FH: lung cancer 19 FATHER FHx: mental retardation G8 BROTHER Myocardial infarction 19 FATHER (X2) Physical Exam Vital Signs Vital Signs - First Documented 02/06/18 14:02 Temp 97.8 Pulse 111 Resp 18 B/P (MAP) 156/119 (131) Pulse Ox 98 Capillary Refill : Less Than 3 Seconds Stroke Stroke Thrombolytic Exclusion Age 18 or Over: Yes Progress/Results/Core Measures Results/Orders Lab Results Laboratory Tests Test 02/06/18 14:28 02/06/18 14:44 02/06/18 15:00 Range/Units Urine Color YELLOW Urine Clarity SLIGHTLY CLOUDY Urine pH 7 5-9 Urine Specific [place] 1.010 L 1.016-1.022 Urine Protein 2+ H NEGATIVE Urine Glucose (UA) NEGATIVE NEGATIVE Urine Ketones 1+ H NEGATIVE Urine Nitrite NEGATIVE NEGATIVE Urine Bilirubin NEGATIVE NEGATIVE Urine Urobilinogen 1 NORMAL MG/DL Urine Leukocyte Esterase 1+ H NEGATIVE Urine RBC (Auto) 5+ H NEGATIVE Urine RBC >100 H /HPF Urine WBC RARE /HPF Urine Squamous Epithelial Cells >50 H /HPF Urine Crystals NONE /LPF Urine Bacteria TRACE /HPF Urine Casts NONE /LPF Urine Mucus NEGATIVE /LPF Urine Culture Indicated NO Urine Opiates Screen NEGATIVE NEGATIVE Urine Oxycodone Screen NEGATIVE NEGATIVE Urine Methadone Screen NEGATIVE NEGATIVE Urine Propoxyphene Screen NEGATIVE NEGATIVE Urine Barbiturates Screen NEGATIVE NEGATIVE Ur Tricyclic Antidepressants Screen NEGATIVE NEGATIVE Urine Phencyclidine Screen NEGATIVE NEGATIVE Urine Amphetamines Screen NEGATIVE NEGATIVE Urine Methamphetamines Screen NEGATIVE NEGATIVE Urine Benzodiazepines Screen NEGATIVE NEGATIVE Urine Cocaine Screen NEGATIVE NEGATIVE Urine Cannabinoids Screen NEGATIVE NEGATIVE White Blood Count 5.6 4.3-11.0 10^3/uL Red Blood Count 4.79 4.35-5.85 10^6/uL Hemoglobin 14.1 11.5-16.0 G/DL Hematocrit 42 35-52 % Mean Corpuscular Volume 87 80-99 FL Mean Corpuscular Hemoglobin 29 25-34 PG Mean Corpuscular Hemoglobin Concent 34 32-36 G/DL Red Cell Distribution Width 17.0 H 10.0-14.5 % Platelet Count 240 130-400 10^3/uL Mean Platelet Volume 10.7 H 7.4-10.4 FL Neutrophils (%) (Auto) 53 42-75 % Lymphocytes (%) (Auto) 35 12-44 % Monocytes (%) (Auto) 6 0-12 % Eosinophils (%) (Auto) 6 0-10 % Basophils (%) (Auto) 1 0-10 % Neutrophils # (Auto) 2.9 1.8-7.8 X 10^3 Lymphocytes # (Auto) 1.9 1.0-4.0 X 10^3 Monocytes # (Auto) 0.3 0.0-1.0 X 10^3 Eosinophils # (Auto) 0.3 0.0-0.3 10^3/uL Basophils # (Auto) 0.1 0.0-0.1 10^3/uL D-Dimer 0.53 H 0.00-0.49 UG/ML Sodium Level 140 135-145 MMOL/L Potassium Level 4.0 3.6-5.0 MMOL/L Chloride Level 106 98-107 MMOL/L Carbon Dioxide Level 27 21-32 MMOL/L Anion Gap 7 5-14 MMOL/L Blood Urea Nitrogen 12 7-18 MG/DL Creatinine 0.77 0.60-1.30 MG/DL Estimat Glomerular Filtration Rate > 60 BUN/Creatinine Ratio 16 Glucose Level 96 70-105 MG/DL Calcium Level 9.7 8.5-10.1 MG/DL Magnesium Level 2.0 1.8-2.4 MG/DL Total Bilirubin 0.7 0.1-1.0 MG/DL Aspartate Amino Transf (AST/SGOT) 27 5-34 U/L Alanine Aminotransferase (ALT/SGPT) 24 0-55 U/L Alkaline Phosphatase 98 40-136 U/L Troponin I < 0.30 <0.30 NG/ML B-Type Natriuretic Peptide < 10.0 <100.0 PG/ML Total Protein 7.4 6.4-8.2 GM/DL Albumin 4.3 3.2-4.5 GM/DL TSH [place] Testing 0.99 0.35-4.94 UIU/ML Serum Alcohol < 10 <10 MG/DL My Orders Orders - RAEANN SILVA Saline Lock/Iv-Start (02/06/18 14:22) Ekg Tracing (02/06/18:) Monitor-Rhythm Ecg Trace Only (02/06/18:) Alcohol (02/06/18:) BNP (02/06/18:) Cbc With Automated Diff (02/06/18:) Comprehensive Metabolic Panel (02/06/18:) Fibrin Degradation Products (02/06/18:) Drug Screen Stat (Urine) (02/06/18:) Magnesium (02/06/18:) Thyroid Analyzer (02/06/18:) Troponin I (02/06/18:) Ua Culture If Indicated (02/06/18:) Ct Head Wo (02/06/18:) Chest 1 View, Ap/Pa Only (02/06/18 14:22) Ns Iv 1000 Ml (Sodium Chloride 0.9%) (02/06/18 15:46) Ondansetron Injection (Zofran Injectio (02/06/18 16:00) Ketorolac Injection (Toradol Injection) (02/06/18 15:46) Orphenadrine Injection (Norflex Injectio (02/06/18 15:52) Medications Given in ED Current Medications Medications Dose Ordered Sig/Lyndsay Route Start Time Stop Time Status Last Admin Dose Admin Ondansetron HCl 4 mg ONCE ONCE IVP 02/06/18 16:00 02/06/18 16:01 DC 02/06/18 16:02 4 MG Sodium Chloride 1,000 ml @ 0 mls/hr Q0M ONCE IV 02/06/18 15:46 02/06/18 15:49 DC 02/06/18 16:05 1,000 MLS/HR Vital Signs/I&O Vital Sign - Last 12Hours 02/06/18 14:02 Temp 97.8 Pulse 111 Resp 18 B/P (MAP) 156/119 (131) Pulse Ox 98 Blood Pressure Mean: 131 Departure Impression Impression: Primary Impression: Tension type headache Additional Impression: Muscle strain of left shoulder region Disposition: 01 HOME, SELF-CARE Condition: Improved Departure-Patient Inst. Decision time for Depature: 16:50 Referrals: RENETTA CARPIO MD (PCP/Family) Primary Care Physician Patient Instructions: Cervical Muscle Strain (DC), Muscle Strain (DC), Rotator Cuff Tendinitis Strengthening Exercises, Tension Headache (DC) Add. Discharge Instructions: All discharge instructions reviewed with patient and/or family. Voiced understanding. Medications as instructed. Tylenol extra strength over-the- counter as directed for pain. Heating pad or pack as needed for pain. Avoid heavy lifting, pushing, pulling, twisting, bending, or clubbing 7 days. Follow -up with your primary care provider for recheck as an outpatient. Check your blood pressure 1-2 times daily and keep a record. Take the records with you to your follow-up appointment. Return in the emergency department for worsened symptoms or any other concerns. Scripts Diclofenac Sodium (Diclofenac Sodium) 75 Mg Tablet.dr 75 MG PO BID Y for pain, #20 TAB 0 Refills Prov: RAEANN SILVA 02/06/18 Prednisone (Prednisone) 20 Mg Tab 40 MG PO DAILY, #10 TAB 0 Refills Prov: RAEANN SILVA 02/06/18 Orphenadrine Citrate (Orphenadrine Citrate) 100 Mg Tablet.er 100 MG PO BID Y for SPASMS, #14 TAB 0 Refills Prov: RAEANN SILVA 02/06/18 RAEANN SILVA Feb 06, 2018 14:57
--- NOTE | 2018-02-06 15:09 | Diagnostic Imaging Report ---
CLINICAL INDICATION: Patient with chronic headaches x2 weeks which is getting worse with blurred vision and nausea. EXAM: Axial CT scan of brain performed without IV contrast. COMPARISON: Head CT without contrast dated 05/06/2017. FINDINGS: There is no evidence of acute cerebral infarct, intracranial hemorrhage, or gross mass effect. The brain parenchymal volume appears appropriate for patient's age. There is normal carter-white matter distinction. There is no significant midline shift or herniation. There is no evidence of hydrocephalus. The basal cisterns are unremarkable. The skull, extracranial soft tissue, and orbits are unremarkable. The paranasal sinuses are unremarkable. Temporal bones show no significant abnormality. IMPRESSION: Unremarkable CT scan of the brain. Dictated by: Dictated on workstation # [id number]
--- NOTE | 2018-02-06 15:33 | Diagnostic Imaging Report ---
INDICATION: Left-sided chest pain. EXAMINATION: Frontal chest was obtained at 3:28 p.m. COMPARISON: 04/28/2017. FINDINGS: Heart and mediastinal silhouette are normal in appearance. The lungs are clear. There is no pneumothorax or pleural fluid. IMPRESSION: Negative chest. Dictated by: Dictated on workstation # [id number]
[2018-02-06 15:36] LABS: ALANINE AMINOTRANSFERASE 24 U/L (0-55); ALBUMIN 4.3 GM/DL (3.2-4.5); ALKALINE PHOSPHATASE 98 U/L (40-136); BILIRUBIN,TOTAL 0.7 MG/DL (0.1-1.0); BUN/CREATININE RATIO 16; CALCIUM 9.7 MG/DL (8.5-10.1); CARBON DIOXIDE 27 MMOL/L (21-32); CHLORIDE 106 MMOL/L (98-107); CREATININE SERUM 0.77 MG/DL (0.60-1.30); GFR ESTIMATED > 60; GLUCOSE 96 MG/DL (70-105); SODIUM 140 MMOL/L (135-145); TOTAL PROTEIN 7.4 GM/DL (6.4-8.2)
[2018-02-06] MEDS ORDERED: KETOROLAC 30 MG/ML VIAL IVP STA (15:46)
[2018-02-06] MEDS ORDERED: NS IV 1000 ML 1,000 ML IV ONE (15:46)
[2018-02-06] MEDS ORDERED: ORPHENADRINE 60 MG/2 ML (NORFLEX) AMP IV STA (15:52)
[2018-02-06 15:55] LABS: TSH (THYROID ANALYZER) 0.99 UIU/ML (0.35-4.94)
[2018-02-06] MEDS ORDERED: ONDANSETRON 4 MG/2 ML (SDV) Z0FRAN IVP ONE (16:00)
[2018-02-06] MEDS ORDERED: fentaNYL INJECTION 100 MCG/2 ML AMP IVP STA (16:49)
[2018-02-06] MEDS ORDERED: DICL75TA2 PO (16:56)
[2018-02-06] MEDS ORDERED: PRD20T PO (16:56)
[2018-02-06] MEDS ORDERED: ORPH100T PO (16:56)
[2018-02-06 17:06] VITALS: BP 125/110
== END 2018-02-06 17:14 | disposition home or self-care (01) ==
LOC: EDUNIT# 13:28 → ER 13:30
DX: S46.911A Strain of unspecified muscle, fascia and tendon at shoulder and upper arm level, right arm, initial encounter (principal); G44.209 Tension-type headache, unspecified, not intractable; E78.00 Pure hypercholesterolemia, unspecified; I10 Essential (primary) hypertension; G43.909 Migraine, unspecified, not intractable, without status migrainosus; F41.9 Anxiety disorder, unspecified; F32.9 Major depressive disorder, single episode, unspecified; Z82.49 Family history of ischemic heart disease and other diseases of the circulatory system; Z80.3 Family history of malignant neoplasm of breast; Z80.1 Family history of malignant neoplasm of trachea, bronchus and lung; Z86.73 Personal history of transient ischemic attack (TIA), and cerebral infarction without residual deficits; Z88.5 Allergy status to narcotic agent; W18.39XA Other fall on same level, initial encounter
CPT/HCPCS: 36415; 70450; 71045; 80053; 80306; 80320; 81000; 83735; 83880; 84443; 84484; 85025; 85379; 93005

== ENCOUNTER 2018-04-03 11:43 | Emergency (ER) | payer SELFPAY ==
[~2018-04-03] VITALS: Ht 167.6 cm; Wt 81.6 kg
[~2018-04-03 11:43] MED LIST changes: +DICL75TA2 PO
[2018-04-03] MEDS ORDERED: ASPIRIN 81 MG CHEW (CHILDREN'S ASA) PO ONE (13:00)
[2018-04-03 13:07] LABS: BASOPHILS # (AUTO) 0.1 10^3/uL (0.0-0.1); BASOPHILS % (AUTO) 1 % (0-10); EOSINOPHILS # (AUTO) 0.1 10^3/uL (0.0-0.3); EOSINOPHILS % (AUTO) 2 % (0-10); HEMATOCRIT 39 % (35-52); HEMOGLOBIN 12.9 G/DL (11.5-16.0); LYMPHOCYTES # (AUTO) 1.9 X 10^3 (1.0-4.0); LYMPHOCYTES % (AUTO) 32 % (12-44); MEAN CORPUSCULAR HEMOGLOBIN 29 PG (25-34); MEAN CORPUSCULAR HGB CONC 33 G/DL (32-36); MEAN CORPUSCULAR VOLUME 87 FL (80-99); MEAN PLATELET VOLUME 10.7 FL (7.4-10.4); MONOCYTES # (AUTO) 0.3 X 10^3 (0.0-1.0); MONOCYTES % (AUTO) 5 % (0-12); NEUTROPHILS # (AUTO) 3.5 X 10^3 (1.8-7.8); NEUTROPHILS % (AUTO) 59 % (42-75); PLATELET COUNT 262 10^3/uL (130-400); RED BLOOD COUNT 4.46 10^6/uL (4.35-5.85); RED CELL DISTRIBUTION WIDTH 14.5 % (10.0-14.5); WHITE BLOOD COUNT 5.9 10^3/uL (4.3-11.0)
--- NOTE | 2018-04-03 13:14 | ED Cardiac General ---
History of Present Illness General Chief Complaint: Cardiac/General Problems Stated Complaint: COUGH/HEART FLUTTERING Nursing Triage Note: TO ROOM C/O FLUTTER IN CHEST WITH COUGH FOR 2 DAYS NO PAIN Source: patient Exam Limitations: no limitations History of Present Illness Date Seen by Provider: April 03, 2018 Time Seen by Provider: 12:41 Initial Comments Here with intermittent flutter in her chest over the last couple of days. Usually this all happened and she has to cough and then it goes away. Feels like she's had a little bit of breathing problems occasionally but no vomiting or fever. Denies diarrhea or sweating. Does report intermittent nausea. Episodes last for a few seconds and then go away. Reports that they're becoming more frequent. 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: No Associated Systoms: No Fever/Chills; Shortness of Air; No Weakness Allergies and Home Medications Allergies Coded Allergies: morphine (Verified Allergy, Unknown, 04/27/17) Home Medications Cyclobenzaprine HCl 10 Mg Tablet, 10 MG PO Q8H PRN for neck spasm Prescribed by: DANA DON on 04/28/17328 Diclofenac Sodium 50 Mg Tablet.dr, 50 MG PO Q6H PRN for neck/facial pain Prescribed by: DANA DON on 04/28/17328 Diclofenac Sodium 75 Mg Tablet.dr, 75 MG PO BID PRN for pain Prescribed by: RAEANN SILVA on 02/06/181655 Famotidine 20 Mg Tablet, 20 MG PO BID Prescribed by: RAEANN SILVA on 01/03/16 174 Orphenadrine Citrate 100 Mg Tablet.er, 100 MG PO BID PRN for SPASMS Prescribed by: RAEANN SILVA on 05/06/172027 Orphenadrine Citrate 100 Mg Tablet.er, 100 MG PO BID PRN for SPASMS Prescribed by: RAEANN SILVA on 02/06/181655 Pantoprazole Sodium 40 Mg Tablet.dr, 40 MG PO DAILY Prescribed by: VIRAL CHILDS on 08/07/179 Paroxetine HCl 40 Mg Tablet, 40 MG PO DAILY, (Reported) Tramadol HCl 50 Mg Tablet, 50-100 MG PO Q4H PRN for PAIN-MILD TO MODERATE Prescribed by: RAEANN SILVA on 05/06/172027 Patient Home Medication List Home Medication List Reviewed: Yes Review of Systems Constitutional: see HPI; No chills, No fever Respiratory: See HPI; Denies Cough; Shortness of Air Cardiovascular: Irregular Heart Rate, Palpitations Gastrointestinal: Nausea; Denies Vomiting Genitourinary: No Symptoms Reported Musculoskeletal: no symptoms reported All Other Systems Reviewed Negative Unless Noted: Yes Past Fnieaxy-Gfufpy-Kjrulh Hx Past Med/Social Hx: Reviewed Nursing Past Med/Soc Hx Patient Social History Alcohol Use: Denies Use Recreational Drug Use: No Smoking Status: Never a Smoker 2nd Hand Smoke Exposure: No Recent Foreign Travel: No Contact w/Someone Who Travel: No Recent Infectious Disease Expo: No Recent Hopitalizations: No Immunizations Up To Date Tetanus Booster (TDap): More than 5yrs Date of Pneumonia Vaccine: Dec 30, 2015 Seasonal Allergies Seasonal Allergies: No Past Medical History Surgeries: Yes (WISDOM TEETH) Respiratory: No Cardiac: Yes (tachycardia) High Cholesterol, Hypertension Neurological: Yes (OCCASIONAL HEADACHES) Concussion, Headaches /Migraines, Stroke 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 Disorders: No 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 Sexually Transmitted Disease: No Genitourinary: No Gastrointestinal: No Musculoskeletal: Yes (CHRONIC NECK PAIN) Scoliosis, Chronic Back Pain Endocrine: No HEENT: No Cancer: No Psychosocial: Yes Anxiety, Depression Integumentary: No Recent Skin Changes Blood Disorders: No Family Medical History Reviewed Nursing Family Hx Cardiovascular disease FH: breast cancer 19 MOTHER (METS) FH: lung cancer 19 FATHER FHx: mental retardation G8 BROTHER Myocardial infarction 19 FATHER (X2) Heart Disease, Cancer Physical Exam Vital Signs Vital Signs - First Documented 04/03/18 11:43 Temp 98.4 Pulse 86 Resp 18 B/P (MAP) 156/113 (127) Pulse Ox 98 O2 Delivery Room Air Capillary Refill : Less Than 3 Seconds General Appearance: No Apparent Distress, WD/WN HEENT: PERRL/EOMI, Pharynx Normal Neck: Full Range of Motion, Supple Respiratory: Lungs Clear, Normal Breath Sounds Cardiovascular: Regular Rate, Rhythm, No Murmur Gastrointestinal: Non Tender, Soft Extremity: Normal Inspection, Normal Range of Motion, Non Tender Neurologic/Psychiatric: Alert, Oriented x3 Skin: Normal Color, Warm/Dry Progress/Results/Core Measures Results/Orders Lab Results Laboratory Tests Test 04/03/18 11:56 Range/Units White Blood Count 5.9 4.3-11.0 10^3/uL Red Blood Count 4.46 4.35-5.85 10^6/uL Hemoglobin 12.9 11.5-16.0 G/DL Hematocrit 39 35-52 % Mean Corpuscular Volume 87 80-99 FL Mean Corpuscular Hemoglobin 29 25-34 PG Mean Corpuscular Hemoglobin Concent 33 32-36 G/DL Red Cell Distribution Width 14.5 10.0-14.5 % Platelet Count 262 130-400 10^3/uL Mean Platelet Volume 10.7 H 7.4-10.4 FL Neutrophils (%) (Auto) 59 42-75 % Lymphocytes (%) (Auto) 32 12-44 % Monocytes (%) (Auto) 5 0-12 % Eosinophils (%) (Auto) 2 0-10 % Basophils (%) (Auto) 1 0-10 % Neutrophils # (Auto) 3.5 1.8-7.8 X 10^3 Lymphocytes # (Auto) 1.9 1.0-4.0 X 10^3 Monocytes # (Auto) 0.3 0.0-1.0 X 10^3 Eosinophils # (Auto) 0.1 0.0-0.3 10^3/uL Basophils # (Auto) 0.1 0.0-0.1 10^3/uL Prothrombin Time 13.0 12.2-14.7 SEC INR Comment 1.0 0.8-1.4 Activated Partial Thromboplast Time 27 24-35 SEC D-Dimer 0.51 H 0.00-0.49 UG/ML Sodium Level 141 135-145 MMOL/L Potassium Level 3.8 3.6-5.0 MMOL/L Chloride Level 109 H 98-107 MMOL/L Carbon Dioxide Level 23 21-32 MMOL/L Anion Gap 9 5-14 MMOL/L Blood Urea Nitrogen 10 7-18 MG/DL Creatinine 0.77 0.60-1.30 MG/DL Estimat Glomerular Filtration Rate > 60 BUN/Creatinine Ratio 13 Glucose Level 96 70-105 MG/DL Calcium Level 9.3 8.5-10.1 MG/DL Magnesium Level 2.1 1.8-2.4 MG/DL Total Bilirubin 0.5 0.1-1.0 MG/DL Aspartate Amino Transf (AST/SGOT) 18 5-34 U/L Alanine Aminotransferase (ALT/SGPT) 16 0-55 U/L Alkaline Phosphatase 92 40-136 U/L Myoglobin 31.4 10.0-92.0 NG/ML Troponin I < 0.30 <0.30 NG/ML Total Protein 7.0 6.4-8.2 GM/DL Albumin 4.3 3.2-4.5 GM/DL Lipase 27 8-78 U/L My Orders Orders - MARK GODOY MD Ekg Tracing (04/03/18 11:46) Cbc With Automated Diff (04/03/18 13:00) Magnesium (04/03/18 13:00) Chest 1 View, Ap/Pa Only (04/03/18 13:00) Cardiac Profile 1 (04/03/18 13:00) Comprehensive Metabolic Panel (04/03/18 13:00) Myoglobin Serum (04/03/18 13:00) Protime With Inr (04/03/18 13:00) Partial Thromboplastin Time (04/03/18 13:00) O2 (04/03/18 13:00) Monitor-Rhythm Ecg Trace Only (04/03/18 13:00) Lipid Panel (04/04/18 06:00) Aspirin Chewable Tablet (Baby Aspirin Ch (04/03/18 13:00) Saline Lock/Iv-Start (04/03/18 13:00) Lipase (04/03/18 13:00) Fibrin Degradation Products (04/03/18 13:00) Ketorolac Injection (Toradol Injection) (04/03/18 14:51) Lisinopril Tablet (Zestril Tablet) (04/03/18 15:00) Medications Given in ED Current Medications Medications Dose Ordered Sig/Lyndsay Route Start Time Stop Time Status Last Admin Dose Admin Aspirin 324 mg ONCE ONCE PO 04/03/18 13:00 04/03/18 13:02 DC 04/03/18 13:06 324 MG Vital Signs/I&O 04/03/18 11:43 Temp 98.4 Pulse 86 Resp 18 B/P (MAP) 156/113 (127) Pulse Ox 98 O2 Delivery Room Air Blood Pressure Mean: 127 Progress Progress Note : Progress Note Seen and evaluated. IV, labs, EKG and chest x-ray ordered. Monitor patient. No acute findings. I did discuss the case with Dr. Finch. We will get her Holter monitor evaluation. She will order that. I will initiate lisinopril 20 mg daily for blood pressure. First dose now. She was complaining of back pain so we did give her Toradol 30 mg IV. Discharged home with return precautions. Patient verbalize understanding instructions and agreement with plan. Initial ECG Impression Date: April 03, 2018 Initial ECG Impression Time: 11:48 Initial ECG Rate: 89 Initial ECG Rhythm: Normal Sinus Comment Sinus rhythm with normal axis. No evidence of ST elevation AL. Similar to previous done 02/06/18. Interpreted by me. Diagnostic Imaging Diagonstic Imaging: Xray Plain Films/CT/US/NM/MRI: chest Comments VIA [facility], [facility]. [place], [place] NAME: JC BOUCHER [facility] REC#: [id number] PT STATUS: REG ER : 1970 PHYSICIAN: MARK GODOY MD ADMIT DATE: 04/03/18/ER Draft Date of Exam:04/03/18 CHEST 1 VIEW, AP/PA ONLY PATIENT HISTORY: Cough. TECHNIQUE: Single frontal view of the chest. COMPARISON: 02/06/2018. FINDINGS: The lung volumes are normal. No focal consolidation is seen. No large pleural effusion or pneumothorax is seen. The cardiomediastinal silhouette is normal in size and contour. No acute osseous abnormality is seen. IMPRESSION: No acute pulmonary abnormality seen. Dictated on workstation # [id number] Dict: 04/03/18 1322 Trans: 04/03/18 1324 AS6 [id number] Interpreted by: KATHRINE CHUN MD Electronically signed by: Departure Impression Primary Impression: Atrial tachycardia Additional Impression: Hypertension Qualified Codes: I10 - Essential (primary) hypertension Disposition: 01 HOME, SELF-CARE Condition: Improved Departure-Patient Inst. Decision time for Depature: 15:20 Referrals: RENETTA CARPIO MD (PCP/Family) Primary Care Physician Patient Instructions: High Blood Pressure (DC), Palpitations (DC) Add. Discharge Instructions: All discharge instructions reviewed with patient and/or family. Voiced understanding. You will go by the heart Center in the morning to spanish moss picker a Holter monitor. Follow their instructions. Start high blood pressure medicine as discussed. Follow up with your Dr. in one week for recheck and further evaluation. Return for worse pain, fever, vomiting, weakness, breathing problems or other concerns as needed. Work/School Note: Work Release Form Date Seen in the Emergency Department: April 03, 2018 Return to Work: April 04, 2018 Restrictions: No Restrictions Copy Copies To 1: RENETTA CARPIO MD, TIMOTHY D MD April 03, 2018 13:14
[2018-04-03 13:19] LABS: ALANINE AMINOTRANSFERASE 16 U/L (0-55); ALBUMIN 4.3 GM/DL (3.2-4.5); ALKALINE PHOSPHATASE 92 U/L (40-136); BILIRUBIN,TOTAL 0.5 MG/DL (0.1-1.0); BUN/CREATININE RATIO 13; CALCIUM 9.3 MG/DL (8.5-10.1); CARBON DIOXIDE 23 MMOL/L (21-32); CHLORIDE 109 MMOL/L (98-107); CREATININE SERUM 0.77 MG/DL (0.60-1.30); GFR ESTIMATED > 60; GLUCOSE 96 MG/DL (70-105); LIPASE 27 U/L (8-78); MAGNESIUM 2.1 MG/DL (1.8-2.4); POTASSIUM 3.8 MMOL/L (3.6-5.0); SODIUM 141 MMOL/L (135-145)
--- NOTE | 2018-04-03 13:25 | Diagnostic Imaging Report ---
PATIENT HISTORY: Cough. TECHNIQUE: Single frontal view of the chest. COMPARISON: 02/06/2018. FINDINGS: The lung volumes are normal. No focal consolidation is seen. No large pleural effusion or pneumothorax is seen. The cardiomediastinal silhouette is normal in size and contour. No acute osseous abnormality is seen. IMPRESSION: No acute pulmonary abnormality seen. Dictated by: Dictated on workstation # [id number]
[2018-04-03 13:26] LABS: MYOGLOBIN SERUM 31.4 NG/ML (10.0-92.0)
[2018-04-03] MEDS ORDERED: KETOROLAC 30 MG/ML VIAL IVP STA (14:51)
[2018-04-03] MEDS ORDERED: lisINopril 20 MG (PRINIVIL) TABLET PO ONE (15:00)
[2018-04-03] MEDS ORDERED: LISI-552 PO (15:28)
[2018-04-03 15:39] VITALS: BP 159/101
== END 2018-04-03 15:38 | disposition home or self-care (01) ==
LOC: EDUNIT# 11:43 → ER 11:46
DX: I47.1 Supraventricular tachycardia (principal); I10 Essential (primary) hypertension; E78.00 Pure hypercholesterolemia, unspecified; G43.909 Migraine, unspecified, not intractable, without status migrainosus; F41.9 Anxiety disorder, unspecified; F32.9 Major depressive disorder, single episode, unspecified; Z80.3 Family history of malignant neoplasm of breast; Z80.1 Family history of malignant neoplasm of trachea, bronchus and lung; Z82.49 Family history of ischemic heart disease and other diseases of the circulatory system; Z86.73 Personal history of transient ischemic attack (TIA), and cerebral infarction without residual deficits; Z88.5 Allergy status to narcotic agent
CPT/HCPCS: 36415; 71045; 80053; 83690; 83735; 83874; 84484; 85025; 85379; 85610; 85730; 93005; 93041; 96374

== ENCOUNTER 2018-04-08 12:48 | Emergency (ER) | payer SELFPAY ==
[~2018-04-08] VITALS: Ht 167.6 cm; Wt 81.6 kg
[~2018-04-08 12:48] MED LIST changes: +LISI-552 PO
[2018-04-08 12:50] VITALS: BP 133/99
[2018-04-08] MEDS ORDERED: ASPIRIN 81 MG CHEW (CHILDREN'S ASA) ONE (12:54)
--- OUTSIDE RECORDS SUMMARY | 2018-04-08 12:54 | XMS REPORT ---
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 Name Role Phone JEFFERSON ROSALBA Unavailable PROBLEMS Type Condition ICD9-CM Code WSE57-UN Code Onset Dates Condition Status SNOMED Code Problem Iron deficiency anemia, unspecified iron deficiency anemia type D50.9 Active 16758685 Problem Anemia, unspecified type D64.9 Active 316870173 Problem Dysthymia F34.1 Active 92349073 ALLERGIES Substance Reaction Event Type Date Status Morphine Sulfate rash Drug Allergy Jun, Active ENCOUNTERS Encounter Location Date Diagnosis [place] [id number] [address] Jan, [facility] [address] [address] Jan, [place] [address] [address] Jul, [facility] [address] [address] Jun, Acute right eye pain H57.11 [place] [address] [address] Jun, Dysthymia F34.1 [facility] [address] [address] Apr, [place] [address] [address] Apr, Syncope, unspecified syncope type R55 [place] [address] [address] Apr, Iron deficiency anemia, unspecified iron deficiency anemia type D50.9 [place] [address] [place] [id number] [place] [address]47- 9966 Apr, [place] [address] [address] March, Anemia, unspecified type D64.9 [place] [address] [place] [id number] [place] [address]176- 4781 Jan, Acute non-recurrent maxillary sinusitis J01.00 [place] [address] [place] [id number] [place] [address] 87262- 5591 Jan, Lumbar strain, initial encounter S39.012A and Acute nasopharyngitis J00 [place] [address] [place] [id number] [place] [address] 29165- 3823 Oct, Dysthymia F34.1 [place] [address] [address]167- 16[address] Aug, [place] [address] [place] [id number] [place] [address]79- 4568 Aug, [place] [address] [address] 2943 Apr, Encounter for other administrative examinations Z02.89 [place] [address] [place] [id number] [place] [address] 74165- 2384 Apr, Dental examination Z01.20 [place] [address] [place] [id number] [place] [address] 98967- 2983 Dec, GERD (gastroesophageal reflux disease) K21.9 and Hypokalemia E87.6 [place] [address] 47678- 8808 Dec, [facility] [address] [place] [id number] [place] [address]270 [address]22 Nov, Candidal vaginitis B37.3 ; Rash R21 ; History of nipple discharge Z87.898 and Dysuria R30.0 [facility] [address] [address] Sep, [facility] [address] [id number] Aug, Encounter for dental examination Z01.20 [facility] [address] [address] Aug, [facility] [address] [place] [id number] [place] [address] 90673- 4161 Jun, [facility] [address] [place] [id number] [place] [address] 46374- 0232 Jun, Uterine enlargement 621.2 [facility] [address] [place] [id number] [place] [address] 11403- 3187 Feb, [facility] [address] [place] [id number] [place] [address] 41318- 4902 Feb, [facility] [id number] [place] [address] 60001- 6657 Jan, [facility] [address] [place] [id number] [place] [address] 53813- 4179 Jan, [facility] [address], [place] [address] 4[address] Nov, [facility] [address], [place] [address] 2391 Nov, [facility] [address], [place] [address] 5623 Oct, [facility] [address] [address] Oct, [facility] [address] 250[address] Oct, [facility] [address] [address] Oct, [facility] [place] [facility] [address] [id number] [place] [address] 0504 Oct, [facility] [place] [facility] [address] [id number] [place] [address]- 8462 Oct, [facility] [place] [facility] [address] [id number] [place] [address]- 0620 Sep, [facility] [place] [facility] [address] [id number] [place] [address]- 6489 Sep, [facility] [place] [facility] [address] [id number] [place] [address]- 2136 Sep, [facility] [place] [facility] [address] [id number] [place] [address]- 2189 Sep, [facility] [place] [facility] [address] [id number] [place] [address]- 9061 Sep, [facility] [place] [facility] [address] [id number] [place] [address]- 1047 Sep, [facility] [place] [facility] [address] [id number] [place] [address]- 8704 Sep, [facility] [place] [facility] [address] [id number] [place] [address]- 8061 Sep, [facility] [place] [facility] [address] [id number] [place] [address]- 8862 Jun, [facility] [place] [facility] [address] [id number] [place] [address]- 3531 Jun, [facility] [place] [facility] [address] [id number] [place] [address]- 8526 Jun, [facility] [place] [facility] [address] [id number] [place] [address] March, [facility] [place] [facility] [address] [id number] [place] [address] March, [facility] [place] [facility] [address] [id number] [place] [address]- 8185 Oct, [facility] [address] [place] [id number] [address] Oct, [facility] [address], [place] [address]- 6782 Oct, [facility] [address], [place] [address]- 8897 Oct, [facility] [address] [address] Aug, [facility] [address], [place] [address]- 7791 Aug, [facility] [address], [place] [address]- 2045 Apr, [facility] [address], [place] [address]- 1115 Apr, [facility] [address], [place] [address]- 5[address] Jan, [facility] [address], [place] [address]- 6244 Jan, [facility] [address], [place] [address]- 7594 Oct, IMMUNIZATIONS No Known Immunizations SOCIAL HISTORY Never Assessed REASON FOR VISIT right eye pain PLAN OF CARE Activity Details Follow Up prn Reason: VITAL SIGNS Height 67 in 2017-07-26 Weight 196.2 lbs 2017-07-26 Temperature 98.4 degrees Fahrenheit 2017-07-26 Heart Rate 90 bpm 2017-07-26 Respiratory Rate 18 2017-07-26 BMI 30.73 kg/m2 2017-07-26 Blood pressure systolic 138 mmHg 2017-07-26 Blood pressure diastolic 90 mmHg 2017-07-26 MEDICATIONS Medication Instructions Dosage Frequency Start Date End Date Duration Status Paxil 40 mg Orally Once a day 1 tablet in the morning 24h 90 days Active RESULTS No Results PROCEDURES No Known procedures INSTRUCTIONS MEDICATIONS ADMINISTERED No Known Medications MEDICAL (GENERAL) HISTORY Type Description Date Medical History High Blood Pressure Medical History Heart Murmur Hospitalization History Cardiac related concerns but no diagnosis
[2018-04-08] MEDS ORDERED: LACTATED RINGERS 1,000 ML IV ONE (12:58)
--- OUTSIDE RECORDS SUMMARY | 2018-04-08 12:59 | XMS REPORT ---
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 Name Role Phone RENETTA CARPIO Unavailable PROBLEMS Type Condition ICD9-CM Code LQE19-PO Code Onset Dates Condition Status SNOMED Code Problem Iron deficiency anemia, unspecified iron deficiency anemia type D50.9 Active 86601539 Problem Anemia, unspecified type D64.9 Active 715380472 Problem Dysthymia F34.1 Active 26899340 ALLERGIES No Information ENCOUNTERS Encounter Location Date Diagnosis [place] [address] [address] Jan, [facility] [address] [address]- [address]657 Jan, [place] [address] [address]- [address] Jul, [facility] [address] [address] Jun, Acute right eye pain H57.11 [place] [address] 68838- 9856 Jun, Dysthymia F34.1 [facility] [address] [place] [id number] [place] [address] 50365- 0851 Apr, [place] [address] [address]- 8122 13 Apr, 2017 Syncope, unspecified syncope type R55 [place] [address] [address]95- 8815 05 Apr, 2017 Iron deficiency anemia, unspecified iron deficiency anemia type D50.9 [facility] [address] [place] [id number] [place] [address] 03283- 1608 Apr, [place] [address] 77639- 9963 March, Anemia, unspecified type D64.9 [place] [address] [place] [id number] [place] [address] 66761- 9501 Jan, Acute non-recurrent maxillary sinusitis J01.00 [place] [address] 39436- 3298 Jan, Lumbar strain, initial encounter S39.012A and Acute nasopharyngitis J00 [place] [address] 70468- 2587 Oct, Dysthymia F34.1 [place] [address] 99793- 1410 Aug, [place] [address] 96260- 3185 Aug, [place] [address] [place] [id number] [place] [address] 77574- 6390 Apr, Encounter for other administrative examinations Z02.89 [place] [address] [place] [id number] [place] [address] 81624- 6970 Apr, Dental examination Z01.20 [place] [address] 81939- 3412 Dec, GERD (gastroesophageal reflux disease) K21.9 and Hypokalemia E87.6 [place] [address] [place] [id number] [place] [address] 22739- 7918 Dec, [facility] [address] [place] [id number] [place] [address]189 -7020 Nov, Candidal vaginitis B37.3 ; Rash R21 ; History of nipple discharge Z87.898 and Dysuria R30.0 [place] [address] [id number] [address]- 4543 Sep, [facility] [address] [id number] [id number] Aug, Encounter for dental examination Z01.20 [facility] [address] [id number], [place] [address]- 5790 Aug, [facility] [address] [id number], [place] [address]- 6962 Jun, [facility] [address] [facility] [id number], [place] [address]- 2548 Jun, Uterine enlargement 621.2 [facility] [address] [place] [id number] [place] [address] 68357- 4291 Feb, [facility] [address], [place] [address]- 0553 Feb, [facility] [address], [place] [address]- 0478 Jan, [facility] [address] [place] [id number] [address]- 4357 Jan, [facility] [address], [place] [address]- 3284 Nov, [facility] [address] [place] [id number] [address]- 6555 Nov, [facility] [address], [place] [address]- 8959 Oct, [facility] [address] [id number] 6926 Oct, [facility] [address] [facility] [id number], [place] [address]- 7436 Oct, [facility] [address] [facility] [id number], [place] [address]- 8716 Oct, [facility] [address], [place] [address]- 9925 Oct, [facility] [place] [facility] [address] [id number] [place] [address]- 8573 Oct, [facility] [place] [facility] [address] [id number] [place] [address]- 8295 Sep, [facility] [place] [facility] [address] [id number] [place] [address]- 1698 Sep, [facility] [place] [facility] [address] [id number] [place] [address]- 1134 Sep, [facility] [place] [facility] [address] [id number] [place] [address]- 0306 Sep, [facility] [place] [facility] [address] [id number] [place] [address]- 9310 Sep, [facility] [place] [facility] [address] [id number] [place] [address]- 8467 Sep, [facility] [place] [facility] [address] [id number] [place] [address]- 9233 Sep, [facility] [place] [facility] [address] [id number] [place] [address]- 3574 Sep, [facility] [place] [facility] [address] [id number] [place] [address]- 8421 Jun, [facility] [place] [facility] [address] [id number] [place] [address]- 3504 Jun, [facility] [place] [facility] [address] [id number] [place] [address]- 3569 Jun, [facility] [place] [facility] [address] [id number] [place] [address] March, [facility] [place] [facility] [address] [id number] [place] [address] March, [facility] [place] [facility] [address] [id number] [place] 3588 Oct, [facility] [place] [facility] [address] [place] [id number], [place] [address]- 3671 16 Oct, 2013 [facility] [address] [place] [id number] [address]- 5419 Oct, [facility] [address] [address] Oct, [facility] [address] [place] [id number] 9616 Aug, [facility] [address], [place] [address]- 5607 Aug, [facility] [address] 6532 Apr, [facility] [address], [place] [address]- 7808 Apr, [facility] [address], [place] [address]- 1197 Jan, [facility] [address] [place] [id number], [place] [address]- 7697 Jan, [facility] [address] [place] [id number] [address]- 5212 Oct, IMMUNIZATIONS No Known Immunizations SOCIAL HISTORY Never Assessed REASON FOR VISIT Eye Exam PLAN OF CARE VITAL SIGNS MEDICATIONS Unknown Medications RESULTS No Results PROCEDURES No Known procedures INSTRUCTIONS MEDICATIONS ADMINISTERED No Known Medications MEDICAL (GENERAL) HISTORY Type Description Date Medical History High Blood Pressure Medical History Heart Murmur Hospitalization History Cardiac related concerns but no diagnosis
[2018-04-08] MEDS ORDERED: ASPIRIN 81 MG CHEW (CHILDREN'S ASA) PO ONE (13:00)
--- OUTSIDE RECORDS SUMMARY | 2018-04-08 13:01 | XMS REPORT | Continuity of Care Document ---
Author Author [facility] Address Unknown Phone Unavailable Allergies Active Description Code Type Severity Reaction Onset Reported/Identified Relationship to Patient Clinical Status Yes NKANo Known Allergies NKA Miscellaneous Allergy Mild N/A 03/19/2017 Yes morphine [id number] Drug Allergy Unknown N/A 04/27/2017 Medications There [...] MD 401.1 HYPERTENSION, BENIGN ESSENTIAL 02/17/2010 GRACIELA PADDER CUSHION, VLADISLAV A 307.81 HEADACHE, TENSION 02/17/2010 GRACIELA PADDER CUSHION, VLADISLAV A 311 DEPRESSIVE DISORDER NOS 02/17/2010 GRACIELA PADDER CUSHION, VLADISLAV A 401.1 HYPERTENSION, BENIGN ESSENTIAL 02/17/2010 GRACIELA PADDER CUSHION, VLADISLAV A 307.81 HEADACHE, TENSION 02/17/2010 GRACIELA PADDER CUSHION, VLADISLAV A 311 DEPRESSIVE DISORDER NOS 02/17/2010 GRACIELA PADDER CUSHION, VLADISLAV A 401.1 HYPERTENSION, BENIGN ESSENTIAL 02/17/2010 GRACIELA PADDER CUSHION, VLADISLAV A 307.81 HEADACHE, TENSION 02/17/2010 GRACIELA PADDER CUSHION, VLADISLAV A 311 DEPRESSIVE DISORDER NOS 02/17/2010 GRACIELA PADDER CUSHION, VLADISLAV A 401.1 HYPERTENSION, BENIGN ESSENTIAL 07/02/2011 [...] MD Ot 737.30 IDIOPATHIC SCOLIOSIS 07/09/2014 KEYLA PELAYO MD Ot 782.0 SKIN SENSATION DISTURB 07/09/2014 KEYLA PELAYO MD Ot 784.0 HEADACHE 10/12/2014 Ot 611.72 10/12/2014 Ot V16.3 10/12/2014 VASILE SARMIENTO DO Ot 285.9 ANEMIA NOS 10/12/2014 VASILE SARMIENTO DO Ot 611.71 MASTODYNIA 10/12/2014 VASILE SARMEINTO DO Ot 784.0 HEADACHE 10/15/2014 GRACIELAVLADISLAV Elise APRN A 611.6 GALACTORRHEA NOT ASSOCIATED WITH CHILDBIRTH 10/15/2014 FLAVIA OWENS APRNIDI A 611.71 MASTODYNIA 10/15/2014 GRACIELA ELSIE VLADISLAV A V72.31 EYEGLASS FRAME TRUER EXAM, ROUTINE 10/15/2014 GRACIELA PADDER CUSHIONVLADISLAV Elise A V73.81 HPV SCREENING 10/15/2014 GRACIELA MOTLEYArik VLADISLAV A V74.5 STD SCREEN 10/15/2014 GRACIELA MOTLEYArik VLADISLAV A V76.10 BREAST CANCER SCREENING 10/15/2014 GRACIELAVLADISLAV Elise APRN A V76.2 CERVICAL CANCER SCREENING (PAP SMEAR) 10/15/2014 GRACIELA MOTLEYArik VLADISLAV A 611.6 GALACTORRHEA NOT ASSOCIATED WITH CHILDBIRTH 10/15/2014 GRACIELAVLADILSAV Elise APRN A 611.71 MASTODYNIA 10/15/2014 GRACIELAVLADISLAV Elise APRN A V72.31 EYEGLASS FRAME TRUER EXAM, ROUTINE 10/15/2014 GRACIELA PADDER CUSHIONVLADISLAV Elise A V73.81 HPV SCREENING 10/15/2014 GRACIELAVLADISLAV Elise APRN A V74.5 STD SCREEN 10/15/2014 GRACIELAVLADISLAV Elise APRN A V76.10 BREAST CANCER SCREENING 10/15/2014 GRACIELA PADDER CUSHION, VLADISLAV A V76.2 CERVICAL CANCER SCREENING (PAP SMEAR) 10/15/2014 GRACIELAArik ZIMMERMAN VLADISLAV A 611.6 GALACTORRHEA NOT ASSOCIATED WITH CHILDBIRTH 10/15/2014 GRACIELA PADDER CUSHIONVLADISLAV Elise A 611.71 MASTODYNIA 10/15/2014 GRACIELAArik ZIMMERMAN VLADISLAV A V72.31 EYEGLASS FRAME TRUER EXAM, ROUTINE 10/15/2014 GRACIELAVLADISLAV Elise APRN A V73.81 HPV SCREENING 10/15/2014 GRACIELAArik ZIMMERMAN VLADISLAV A V74.5 STD SCREEN 10/15/2014 GRACIELAArik ZIMMERMAN VLADISLAV A V76.10 BREAST CANCER SCREENING 10/15/2014 GRACIELAVLADISLAV Elise APRN A V76.2 CERVICAL CANCER SCREENING (PAP SMEAR) 10/19/2014 Ot 611.72 10/19/2014 Ot V16.3 10/20/2014 Ot 611.72 10/20/2014 Ot V16.3 10/26/2014 Ot 611.72 10/26/2014 Ot V16.3 10/26/2014 VLADISLAV OWENS APRN Ot 611.6 10/26/2014 GRACIELA VLADISLAV A PADDER CUSHION Ot 729.5 10/26/2014 GRACIELA VLADISLAV A PADDER CUSHION Ot 729.81 02/28/2015 VIRAL CHILDS PADDER CUSHION Ot 599.0 URIN TRACT INFECTION NOS 02/28/2015 VIRAL CHILDS PADDER CUSHION Ot 780.4 DIZZINESS AND GIDDINESS 02/28/2015 Ot 611.72 02/28/2015 Ot V16.3 02/28/2015 VLADISLAV OWENS A PADDER CUSHION Ot 611.6 02/28/2015 GRACIELA VLADISLAV A PADDER CUSHION Ot 729.5 02/28/2015 VLADISLAV OWENS A PADDER CUSHION Ot 729.81 03/15/2015 VLADISLAV OWENS APRN 112.3 CANDIDIASIS OF SKIN AND NAILS 05/12/2015 VASILE SARMIENTO DO Ot 307.81 TENSION HEADACHE 05/12/2015 VASILE SARMIENTO DO Ot 784.0 HEADACHE 07/01/2015 Ot 611.72 07/01/2015 Ot V16.3 07/01/2015 GRACIELA VLADISLAVGAUDENCIO Chavez APRN Ot 611.6 07/01/2015 GRACIELA VLADISLAV A PADDER CUSHION Ot 729.5 07/01/2015 GRACIELA VLADISLAV A PADDER CUSHION Ot 729.81 07/01/2015 VASILE SARMIENTO DO Ot 599.0 URIN TRACT INFECTION NOS 07/01/2015 VASILE SARMIENTO DO Ot 692.9 DERMATITIS NOS 07/01/2015 VASILE SARMIENTO DO Ot 723.1 CERVICALGIA 07/01/2015 VASILE SARMIENTO DO Ot 782.1 NONSPECIF SKIN ERUPT NEC 07/09/2015 Ot 611.72 07/09/2015 Ot V16.3 07/09/2015 VLADISLAV OWENS A PADDER CUSHION Ot 611.6 07/09/2015 VLADISLAV OWENS A PADDER CUSHION Ot 729.5 07/09/2015 VLADISLAV OWENS A PADDER CUSHION Ot 729.81 07/23/2015 Ot 611.72 07/23/2015 Ot V16.3 07/23/2015 VLADISLAV OWENS A PADDER CUSHION Ot 611.6 07/23/2015 VLADISLAV OWENS PADDER CUSHION Ot 729.5 07/23/2015 VLADISLAV OWENS PADDER CUSHION Ot 729.81 09/06/2015 Ot 611.72 09/06/2015 Ot V16.3 09/06/2015 VLADISLAV OWENS PADDER CUSHION Ot 611.6 09/06/2015 VLADISLAV OWENS PADDER CUSHION Ot 729.5 09/06/2015 VLADISLAV OWENS PADDER CUSHION Ot 729.81 09/06/2015 VIRAL CHILDS PADDER CUSHION Ot R21 RASH AND OTHER NONSPECIFIC SKIN ERUPTION 10/01/2015 JENN TRIPLETT, LAUREN Ledsema Ot I10 ESSENTIAL (PRIMARY) HYPERTENSION 10/01/2015 JENN TRIPLETT, LAUREN Ledesma Ot K21.0 GASTRO-ESOPHAGEAL REFLUX DISEASE WITH ES 10/01/2015 JENN TRIPLETT, LAUREN Ledesma Ot R07.89 OTHER CHEST PAIN 10/01/2015 Ot 611.72 10/01/2015 Ot V16.3 10/01/2015 VLADISLAV OWENS APRN Ot 611.6 10/01/2015 VLADISLAV OWENS APRN Ot 729.5 10/01/2015 VLADISLAV OWENS PADDER CUSHION Ot 729.81 10/04/2015 JENN TRIPLETT, LAUREN Ledesma [...] FAMILY HX- BREAST MALIG 06/22/2016 VLADISLAV OWENS PADDER CUSHION Ot 611.6 GALACTORRHEA-NONOBSTET 06/22/2016 GRACIELAFLAVIAVLADISLAV A PADDER CUSHION Ot 729.5 PAIN IN LIMB 06/22/2016 GRACIELAFLAVIAVLADISLAV A PADDER CUSHION Ot 729.81 SWELLING OF LIMB 06/22/2016 Ot 611.72 LUMP OR MASS IN BREAST 06/22/2016 Ot V16.3 FAMILY HX- BREAST MALIG 06/22/2016 GRACIELAFLAVIAVLADISLAV A PADDER CUSHION Ot 611.6 GALACTORRHEA-NONOBSTET 06/22/2016 GRACIELAFLAVIAVLADISLAV A PADDER CUSHION Ot 729.5 PAIN IN LIMB 06/22/2016 GRACIELA, VLADISLAV A PADDER CUSHION Ot 729.81 SWELLING OF LIMB 06/23/2016 VASILE SARMIENTO DO Ot 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 06/23/2016 VASILE SARMIENTO DO Ot X58.XXXA EXPOSURE TO OTHER SPECIFIED FACTORS, INI 06/23/2016 VASILE SARMIENTO DO Ot Y92.[address] IN UNSP NON-INSTITUT (PRIVATE 06/23/2016 VASILE SARMIENTO DO Ot Y99.8 OTHER EXTERNAL CAUSE STATUS 06/23/2016 VASILE SARMIENTO DO Ot Z23 ENCOUNTER FOR IMMUNIZATION 03/19/2017 GRACIELAFLAVIAVLADISLAV A PADDER CUSHION Ot 611.6 GALACTORRHEA-NONOBSTET 03/19/2017 GRACIELA VLADISLAV A PADDER CUSHION Ot 729.5 PAIN IN LIMB 03/19/2017 GRACIELA VLADISLAV A PADDER CUSHION Ot 729.81 SWELLING OF LIMB 04/19/2017 VIRAL CHILDS PADDER CUSHION Ot R00.0 TACHYCARDIA, UNSPECIFIED 04/19/2017 VIRAL CHILDS PADDER CUSHION Ot R06.00 DYSPNEA, UNSPECIFIED 04/19/2017 VIRAL CHILDS PADDER CUSHION Ot R07.89 OTHER CHEST PAIN 04/19/2017 VIRAL CHILDS PADDER CUSHION Ot R51 HEADACHE 04/19/2017 GRACIELA VLADISLAV A PADDER CUSHION Ot 611.6 GALACTORRHEA-NONOBSTET 04/19/2017 GRACIELA, VLADISLAV A PADDER CUSHION Ot 729.5 PAIN IN LIMB 04/19/2017 VLADISLAV OWENS PADDER CUSHION Ot 729.81 SWELLING OF LIMB 04/19/2017 USMAN MISTRY MD Ot L23.7 ALLERGIC CONTACT DERMATITIS DUE TO PLANT 04/19/2017 USMAN MISTRY MD Ot R21 RASH AND OTHER NONSPECIFIC SKIN ERUPTION 04/20/2017 VIRAL CHILDS PADDER CUSHION Ot R00.0 TACHYCARDIA, UNSPECIFIED 04/20/2017 VIRAL CHILDS PADDER CUSHION Ot R06.00 DYSPNEA, UNSPECIFIED 04/20/2017 VIRAL CHILDS PADDER CUSHION Ot R07.89 OTHER CHEST PAIN 04/20/2017 VIRAL CHILDS PADDER CUSHION Ot R51 HEADACHE 04/20/2017 USMAN MISTRY MD Ot I10 ESSENTIAL (PRIMARY) HYPERTENSION 04/20/2017 USMAN MISTRY MD Ot R00.2 PALPITATIONS 04/20/2017 USMAN MISTRY MD T Ot R07.89 OTHER CHEST PAIN 04/20/2017 USMAN MISTRY MD T Ot R07.9 CHEST PAIN, UNSPECIFIED 04/20/2017 USMAN MISTRY MD T Ot R51 HEADACHE 04/21/2017 VIRAL CHILDS PADDER CUSHION Ot R00.0 TACHYCARDIA, UNSPECIFIED 04/21/2017 VIRAL CHILDS PADDER CUSHION Ot R06.00 DYSPNEA, UNSPECIFIED 04/21/2017 VIRAL CHILDS PADDER CUSHION Ot R07.89 OTHER CHEST PAIN 04/21/2017 VIRAL CHILDS PADDER CUSHION Ot R51 HEADACHE 04/24/2017 USMAN MISTRY MD [...] DON DO, Ot Y92.[address] IN [facility] (PRIVATE 04/28/2017 DANA DON DO Ot Y99.8 OTHER EXTERNAL CAUSE STATUS 04/28/2017 DANA DON DO, Ot Z79.899 OTHER RESIDENTIAL (CURRENT) DRUG THERAPY 04/28/2017 VLADISLAV OWESN PADDER CUSHION Ot 611.6 GALACTORRHEA-NONOBSTET 04/28/2017 VLADISLAV OWENS PADDER CUSHION Ot 729.5 PAIN IN LIMB 04/28/2017 VLADISLAV OWENS PADDER CUSHION Ot 729.81 SWELLING OF LIMB 04/28/2017 FEDE [...] OTHER PART OF HEAD, INITIAL 04/29/2017 DANA DON DO, Ot S13.4XXA SPRAIN OF LIGAMENTS OF CERVICAL SPINE, I 04/29/2017 DANA DON DO, Ot W07.XXXA FALL FROM CHAIR, INITIAL ENCOUNTER 04/29/2017 DANA DON DO, Ot Y92.[address] IN [facility] (PR[facility] 04/29/2017 DANA DON DO Ot Y99.8 OTHER EXTERNAL CAUSE STATUS 04/29/2017 DANA DON DO, Ot Z79.899 OTHER MINI BACCARAT DEALER (CURRENT) DRUG THERAPY 05/06/2017 RAEANN RAINES Ot [...] AND CEREB INFRC W 05/06/2017 VLADISLAV OWENS PADDER CUSHION Ot 611.6 GALACTORRHEA-NONOBSTET 05/06/2017 VLADISLAV OWENS PADDER CUSHION Ot 729.5 PAIN IN LIMB 05/06/2017 VLADISLAV OWENS PADDER CUSHION Ot 729.81 SWELLING OF LIMB 05/06/2017 FEDE TRIPLETT, USMAN Davis Ot L23.7 ALLERGIC CONTACT DERMATITIS DUE TO PLANT 05/06/2017 FEDE TRIPLETT, USMAN Davis Ot R21 RASH AND OTHER NONSPECIFIC SKIN ERUPTION 05/10/2017 VIRAL CHILDS PADDER CUSHION Ot I10 ESSENTIAL (PRIMARY) HYPERTENSION 05/10/2017 VIRAL CHILDS PADDER CUSHION Ot M54.2 CERVICALGIA 05/10/2017 VIRAL CHILDS PADDER CUSHION Ot R51 HEADACHE 05/10/2017 VIRAL CHILDS APRN [...] CHILDS APRN Ot R51 HEADACHE 05/14/2017 VIRAL CHILDS APRN Ot Z86.73 PRSNL HX OF TIA (TIA), AND CEREB INFRC W 08/07/2017 VLADISLAV OWENS PADDER CUSHION Ot 611.6 GALACTORRHEA-NONOBSTET 08/07/2017 VLADISLAV OWENS PADDER CUSHION Ot 729.5 PAIN IN LIMB 08/07/2017 VLADISLAV OWENS PADDER CUSHION Ot 729.81 SWELLING OF LIMB 08/07/2017 FEDE [...] M41.20 OTHER IDIOPATHIC SCOLIOSIS, SITE UNSPECI 08/07/2017 CHILDS, PETER J PADDER CUSHION Ot Z80.1 FAMILY HISTORY OF MALIG NEOPLASM OF TRAC 08/07/2017 VIRAL CHILDS APRN Ot Z82.49 FAMILY HX OF ISCHEM HEART DIS AND OTH DI 08/07/2017 FLAVIA OWENSGAUDENCIO Chavez PADDER CUSHION Ot 611.6 GALACTORRHEA-NONOBSTET 08/07/2017 GRACIELAFLAVIAVLADISLAV A PADDER CUSHION Ot 729.5 PAIN IN LIMB 08/07/2017 GRACIELA VLADISLAV Chavez PADDER CUSHION Ot 729.81 SWELLING OF LIMB 08/07/2017 FEDE TRIPLETT, USMAN Davis Ot L23.7 ALLERGIC CONTACT DERMATITIS DUE TO PLANT 08/07/2017 USMAN MISTRY MD Ot R21 RASH AND OTHER NONSPECIFIC SKIN ERUPTION 08/09/2017 VIRAL CHILDS APRN Ot E78.00 PURE HYPERCHOLESTEROLEMIA, UNSPECIFIED 08/09/2017 VIRAL CHILDS APRN Ot F32.9 MAJOR DEPRESSIVE DISORDER, SINGLE EPISOD 08/09/2017 VIRAL CHILDS APRN Ot F41.9 ANXIETY DISORDER, UNSPECIFIED 08/09/2017 VIRAL CHILSD APRN Ot G43.909 MIGRAINE, UNSP, NOT INTRACTABLE, [...] OF ISCHEM HEART DIS AND OTH DI 02/06/2018 FLAVIA OWENSGAUDENCIO Chavez PADDER CUSHION Ot 611.6 GALACTORRHEA-NONOBSTET 02/06/2018 GRACIELAFLAVIAVLADISLAV A PADDER CUSHION Ot 729.5 PAIN IN LIMB 02/06/2018 GRACIELA VLADISLAV Scott PADDER CUSHION Ot 729.81 SWELLING OF LIMB 02/06/2018 FEDE TRIPLETT, USMAN Davis Ot L23.7 ALLERGIC CONTACT DERMATITIS DUE TO PLANT 02/06/2018 USMAN MISTRY MD Ot R21 RASH AND OTHER NONSPECIFIC SKIN ERUPTION 02/06/2018 RAEANN RAINES Ot E78.00 PURE HYPERCHOLESTEROLEMIA, UNSPECIFIED 02/06/2018 RAEANN RAINES Ot F32.9 MAJOR DEPRESSIVE DISORDER, SINGLE EPISOD 02/06/2018 RAEANN RAINES Ot F41.9 ANXIETY DISORDER, UNSPECIFIED 02/06/2018 RAEANN RAINES Ot G43.909 MIGRAINE, UNSP, NOT INTRACTABLE, WITHOUT 02/06/2018 RAEANN RAINES Ot G44.209 TENSION-TYPE HEADACHE, UNSPECIFIED, NOT 02/06/2018 RAEANN RAINES Ot I10 ESSENTIAL (PRIMARY) HYPERTENSION 02/06/2018 RAEANN RAINES Ot M25.512 PAIN IN LEFT SHOULDER 02/06/2018 RAEANN RAINES Ot S46.911A STRAIN UNSP MUSC/FASC/TEND AT SHLDR/UP A 02/06/2018 RAEANN RAINES Ot W18.39XA OTHER FALL ON SAME LEVEL, INITIAL ENCOUN 02/06/2018 RAEANN RAINES Ot Z80.1 FAMILY HISTORY OF MALIG NEOPLASM OF TRAC 02/06/2018 RAEANN RAINES Ot Z80.3 FAMILY HISTORY OF MALIGNANT NEOPLASM OF 02/06/2018 RAEANN RAINES Ot Z82.49 FAMILY HX OF ISCHEM HEART DIS AND OTH DI 02/06/2018 RAEANN RAINES Ot Z86.73 PRSNL HX OF TIA (TIA), AND CEREB INFRC W 02/06/2018 RAEANN RAINES Ot Z88.5 ALLERGY STATUS TO NARCOTIC AGENT STATUS 02/08/2018 RAEANN RAINES Ot E78.00 PURE HYPERCHOLESTEROLEMIA, UNSPECIFIED 02/08/2018 RAEANN RAINES Ot F32.9 MAJOR DEPRESSIVE DISORDER, SINGLE EPISOD 02/08/2018 RAEANN RAINES Ot F41.9 ANXIETY DISORDER, UNSPECIFIED 02/08/2018 RAEANN RAINES Ot G43.909 MIGRAINE, UNSP, NOT INTRACTABLE, WITHOUT 02/08/2018 RAEANN RAINES Ot G44.209 TENSION-TYPE HEADACHE, UNSPECIFIED, NOT 02/08/2018 RAEANN RAINES Ot I10 ESSENTIAL (PRIMARY) HYPERTENSION 02/08/2018 RAEANN RAINES Ot M25.512 PAIN IN LEFT SHOULDER 02/08/2018 RAEANN RAINES Ot S46.911A STRAIN UNSP MUSC/FASC/TEND AT SHLDR/UP A 02/08/2018 RAEANN RAINES Ot W18.39XA OTHER FALL ON SAME LEVEL, INITIAL ENCOUN 02/08/2018 RAEANN RAINES Ot Z80.1 FAMILY HISTORY OF MALIG NEOPLASM OF TRAC 02/08/2018 RAEANN RAINES Ot Z80.3 FAMILY HISTORY OF MALIGNANT NEOPLASM OF 02/08/2018 RAEANN RAINES Ot Z82.49 FAMILY HX OF ISCHEM HEART DIS AND OTH DI 02/08/2018 RAEANN RAINES Ot Z86.73 PRSNL HX OF TIA (TIA), AND CEREB INFRC W 02/08/2018 RAEANN RAINES Ot Z88.5 ALLERGY STATUS TO NARCOTIC AGENT STATUS 04/03/2018 VLADISLAV OWENS PADDER CUSHION Ot 611.6 GALACTORRHEA-NONOBSTET 04/03/2018 VLADISLAV OWENS PADDER CUSHION Ot 729.5 PAIN IN LIMB 04/03/2018 VLADISLAV OWENS PADDER CUSHION Ot 729.81 SWELLING OF LIMB 04/03/2018 USMAN MISTRY MD Ot L23.7 ALLERGIC CONTACT DERMATITIS DUE TO PLANT 04/03/2018 USMAN MISTRY MD Ot R21 RASH AND OTHER NONSPECIFIC SKIN ERUPTION 04/05/2018 MARK GODOY MD Ot E78.00 PURE HYPERCHOLESTEROLEMIA, UNSPECIFIED 04/05/2018 MARK GODOY MD Ot F32.9 MAJOR DEPRESSIVE DISORDER, SINGLE EPISOD 04/05/2018 MARK GODOY MD, Ot F41.9 ANXIETY DISORDER, UNSPECIFIED 04/05/2018 MARK GODOY MD, Ot G43.909 MIGRAINE, UNSP, NOT INTRACTABLE, WITHOUT 04/05/2018 MARK GODOY MD Ot I10 ESSENTIAL (PRIMARY) HYPERTENSION 04/05/2018 MARK GODOY MD Ot I47.1 SUPRAVENTRICULAR TACHYCARDIA 04/05/2018 MARK GODOY MD Ot I48.92 UNSPECIFIED ATRIAL FLUTTER 04/05/2018 MARK GODOY MD, Ot Z80.1 FAMILY HISTORY OF MALIG NEOPLASM OF TRAC 04/05/2018 MARK GODOY MD, Ot Z80.3 FAMILY HISTORY OF MALIGNANT NEOPLASM OF 04/05/2018 MARK GODOY MD, Ot Z82.49 FAMILY HX OF ISCHEM HEART DIS AND OTH DI 04/05/2018 MARK GODOY MD, Ot Z86.73 PRSNL HX OF TIA (TIA), AND CEREB INFRC W 04/05/2018 MARK GODOY MD, Ot Z88.5 ALLERGY STATUS TO NARCOTIC AGENT STATUS Procedures Code Description Performed By Performed On 99.10 INJECT/INFUSE THROMBOLYTIC AGENT 11/20/2011 86116 ROUTINE VENIPUNCTURE 11/10/2013 7413141 GFR CALC (RESULT ONLY) 11/10/2013 07117 CMP 11/10/2013 69175 LIPID PANEL 11/10/2013 43588 MAMMOGRAM DX, ABHINAV 10/15/2014 90551 GC/CHLAM PROBE (STATE) 10/15/2014 99810 PAP SMEAR 10/15/2014 Q0091 PAP SMEAR OBTAIN SMEAR 10/15/2014 06899 TRICHOMONAS (IN-HOUSE) 10/15/2014 56625 CULTURE UROGENITAL 10/18/2014 09970 ROUTINE VENIPUNCTURE 10/29/2014 33366 PROLACTIN 10/29/2014 01661 TSH 10/29/2014 70346 TRICHOMONAS (IN-HOUSE) 03/15/2015 26909 CULTURE UROGENITAL 03/16/2015 14259 GC/CHLAM PROBE (STATE) 03/16/2015 Results Test Result [...] 04/20/17 21:05 Myoglobin, serum 20.8 ng/mL 10.0-92.0 Anemia Profile B - 04/24/17 13:58 WBC 6.2 x10E3/uL 3.4-10.8 RBC 4.59 x10E6/uL 3.77-5.28 Hemoglobin 9.5 g/dL 11.1-15.9 Hematocrit 33.6 % 34.0-46.6 MCV 73 fL 79-97 MCH 20.7 pg 26.6-33.0 MCHC 28.3 g/dL 31.5-35.7 RDW 17.6 % 12.3-15.4 Platelets 349 x10E3/uL 150-379 Neutrophils 55 % Lymphs 35 % Monocytes 6 % Eos 3 % Basos 1 % Neutrophils (Absolute) 3.4 x10E3/uL 1.4-7.0 Lymphs (Absolute) 2.2 x10E3/uL 0.7-3.1 Monocytes(Absolute) 0.4 x10E3/uL 0.1-0.9 Eos (Absolute) 0.2 x10E3/uL 0.0-0.4 Baso (Absolute) 0.1 x10E3/uL 0.0-0.2 Immature Granulocytes 0 % Immature Grans (Abs) 0.0 x10E3/uL 0.0-0.1 Vitamin B12 380 pg/mL 211-946 Folate (Folic Acid), Serum 8.5 ng/mL >3.0 Iron Bind.Cap.(TIBC) 505 ug/dL 250-450 UIBC 481 ug/dL 131-425 Iron, Serum 24 ug/dL 27-159 Iron Saturation 5 % 15-55 Ferritin, Serum 6 ng/mL 15-150 Reticulocyte Count 1.0 % 0.6-2.6 Complete urinalysis with reflex to culture - [...] Complete urinalysis with reflex to culture - 02/06/18 14:28 Urine color determination YELLOW NRG Urine clarity determination SLIGHTLY CLOUDY NRG Urine pH measurement by test strip 7 5-9 Specific gravity of urine by test strip 1.010 1.016- 1.022 Urine protein assay by test strip, semi-quantitative 2+ NEGATIVE Urine glucose detection by automated test strip NEGATIVE NEGATIVE Erythrocytes detection in urine sediment by light microscopy 5+ NEGATIVE Urine ketones detection by automated test strip 1+ NEGATIVE Urine nitrite detection by test strip NEGATIVE NEGATIVE Urine total bilirubin detection by test strip NEGATIVE NEGATIVE Urine urobilinogen measurement by automated test strip (mass/volume) 1 mg/dL NORMAL Urine leukocyte esterase detection by dipstick 1+ NEGATIVE Automated urine sediment erythrocyte count by microscopy (number/high power field) > [HPF] NRG Automated urine sediment leukocyte count by microscopy (number/high power field ) RARE NRG Bacteria detection in urine sediment by light microscopy TRACE NRG Squamous epithelial cells detection in urine sediment by light microscopy >50 NRG Crystals detection in urine sediment by light microscopy NONE NRG Casts detection in urine sediment by light microscopy NONE NRG Mucus detection in urine sediment by light microscopy NEGATIVE NRG Complete urinalysis with reflex to culture NO NRG Urine drug screening test - 02/06/18 14:28 Urine phencyclidine detection by screening method NEGATIVE [...] NEGATIVE NEGATIVE Urine propoxyphene detection NEGATIVE NEGATIVE Complete blood count (CBC) with automated white blood cell (WBC) differential - 02/06/18 14:44 Blood leukocytes automated count (number/volume) 5.6 10*3/uL 4.3-11.0 Blood erythrocytes automated count (number/volume) 4.79 10*6/uL 4.35-5.85 Venous blood hemoglobin measurement (mass/volume) 14.1 g/dL 11.5-16.0 Blood hematocrit (volume fraction) 42 % 35-52 Automated erythrocyte mean corpuscular volume 87 [foz_us] 80-99 Automated erythrocyte mean corpuscular hemoglobin (mass per erythrocyte) 29 pg 25-34 Automated erythrocyte mean corpuscular hemoglobin concentration measurement ( mass/volume) 34 g/dL 32-36 Automated erythrocyte distribution width ratio 17.0 % 10.0-14.5 Automated blood platelet count (count/volume) 240 10*3/uL 130-400 Automated blood platelet mean volume measurement 10.7 [foz_us] 7.4-10.4 Automated blood neutrophils/100 leukocytes 53 % 42-75 Automated blood lymphocytes/100 leukocytes 35 % 12-44 Blood monocytes/100 leukocytes 6 % 0-12 Automated blood eosinophils/100 leukocytes 6 % 0-10 Automated blood basophils/100 leukocytes 1 % 0-10 Blood neutrophils automated count (number/volume) 2.9 10*3 1.8-7.8 Blood lymphocytes automated count (number/volume) 1.9 10*3 1.0-4.0 Blood monocytes automated count (number/volume) 0.3 10*3 0.0-1.0 Automated eosinophil count 0.3 10*3/uL 0.0-0.3 Automated blood basophil count (count/volume) 0.1 10*3/uL 0.0-0.1 Fibrin D-dimer FEU measurement in platelet poor plasma (mass/volume) - 15:00 Fibrin D-dimer FEU measurement in platelet poor plasma (mass/volume) 0.53 ug/mL 0.00-0.49 Comprehensive metabolic panel - 02/06/18 15:00 Serum or plasma sodium measurement (moles/volume) 140 mmol/L 135-145 Serum or plasma potassium measurement (moles/volume) 4.0 mmol/L 3.6-5.0 Serum or plasma chloride measurement (moles/volume) 106 mmol/L 98-107 Carbon dioxide 27 mmol/L 21-32 Serum or plasma anion gap determination (moles/volume) 7 mmol/L 5-14 Serum or plasma urea nitrogen measurement (mass/volume) 12 mg/dL 7-18 Serum or plasma creatinine measurement (mass/volume) 0.77 mg/dL 0.60-1.30 Serum or plasma urea nitrogen/creatinine mass ratio 16 NRG Serum or plasma creatinine measurement with calculation of estimated glomerular filtration rate > NRG Serum or plasma glucose measurement (mass/volume) 96 mg/dL 70-105 Serum or plasma calcium measurement (mass/volume) 9.7 mg/dL 8.5-10.1 Serum or plasma total bilirubin measurement (mass/volume) 0.7 mg/dL 0.1-1.0 Serum or plasma alkaline phosphatase measurement (enzymatic activity/volume) 98 U/L 40-136 Serum or plasma aspartate aminotransferase measurement (enzymatic activity/ volume) 27 U/L 5-34 Serum or plasma alanine aminotransferase measurement (enzymatic activity/volume ) 24 U/L 0-55 Serum or plasma protein measurement (mass/volume) 7.4 g/dL 6.4-8.2 Serum or plasma albumin measurement (mass/volume) 4.3 g/dL 3.2-4.5 Magnesium - 02/06/18 15:00 Magnesium 2.0 mg/dL 1.8-2.4 Serum or plasma lithium measurement (moles/volume) - 02/06/18 15:00 BNP level < pg/mL <100.0 Serum or plasma troponin i.cardiac measurement (mass/volume) - 02/06/18 15:00 Serum or plasma troponin i.cardiac measurement (mass/volume) < ng/ mL <0.30 Serum or plasma thyrotropin measurement by detection limit <=0.05 miu/l (units/ volume) - 02/06/18 15:00 Serum or plasma thyrotropin measurement by detection limit <=0.05 miu/l (units/ volume) 0.99 u[iU]/mL 0.35-4.94 Serum or plasma ethanol measurement (mass/volume) - 02/06/18 15:00 Serum or plasma ethanol measurement (mass/volume) < mg/dL <10 Complete blood count (CBC) with automated white blood cell (WBC) differential - 04/03/18 11:56 Blood leukocytes automated count (number/volume) 5.9 10*3/uL 4.3-11.0 Blood erythrocytes automated count (number/volume) 4.46 10*6/uL 4.35-5.85 Venous blood hemoglobin measurement (mass/volume) 12.9 g/dL 11.5-16.0 Blood hematocrit (volume fraction) 39 % 35-52 Automated erythrocyte mean corpuscular volume 87 [foz_us] 80-99 Automated erythrocyte mean corpuscular hemoglobin (mass per erythrocyte) 29 pg 25-34 Automated erythrocyte mean corpuscular hemoglobin concentration measurement ( mass/volume) 33 g/dL 32-36 Automated erythrocyte distribution width ratio 14.5 % 10.0-14.5 Automated blood platelet count (count/volume) 262 10*3/uL 130-400 Automated blood platelet mean volume measurement 10.7 [foz_us] 7.4-10.4 Automated blood neutrophils/100 leukocytes 59 % 42-75 Automated blood lymphocytes/100 leukocytes 32 % 12-44 Blood monocytes/100 leukocytes 5 % 0-12 Automated blood eosinophils/100 leukocytes 2 % 0-10 Automated blood basophils/100 leukocytes 1 % 0-10 Blood neutrophils automated count (number/volume) 3.5 10*3 1.8-7.8 Blood lymphocytes automated count (number/volume) 1.9 10*3 1.0-4.0 Blood monocytes automated count (number/volume) 0.3 10*3 0.0-1.0 Automated eosinophil count 0.1 10*3/uL 0.0-0.3 Automated blood basophil count (count/volume) 0.1 10*3/uL 0.0-0.1 PT panel in platelet poor plasma by coagulation assay - 04/03/18 11:56 Prothrombin time (PT) in platelet poor plasma by coagulation assay 13.0 s 12.2-14.7 INR in platelet poor plasma or blood by coagulation assay 1.0 0.8-1.4 Activated partial thromboplastin time (aPTT) in platelet poor plasma bycoagulation assay - 04/03/18 11:56 Activated partial thromboplastin time (aPTT) in platelet poor plasma bycoagulation assay 27 s 24-35 Comprehensive metabolic panel - 04/03/18 11:56 Serum or plasma sodium measurement (moles/volume) 141 mmol/L 135-145 Serum or plasma potassium measurement (moles/volume) 3.8 mmol/L 3.6-5.0 Serum or plasma chloride measurement (moles/volume) 109 mmol/L 98-107 Carbon dioxide 23 mmol/L 21-32 Serum or plasma anion gap determination (moles/volume) 9 mmol/L 5-14 Serum or plasma urea nitrogen measurement (mass/volume) 10 mg/dL 7-18 Serum or plasma creatinine measurement (mass/volume) 0.77 mg/dL 0.60-1.30 Serum or plasma urea nitrogen/creatinine mass ratio 13 NRG Serum or plasma creatinine measurement with calculation of estimated glomerular filtration rate > NRG Serum or plasma glucose measurement (mass/volume) 96 mg/dL 70-105 Serum or plasma calcium measurement (mass/volume) 9.3 mg/dL 8.5-10.1 Serum or plasma total bilirubin measurement (mass/volume) 0.5 mg/dL 0.1-1.0 Serum or plasma alkaline phosphatase measurement (enzymatic activity/volume) 92 U/L 40-136 Serum or plasma aspartate aminotransferase measurement (enzymatic activity/ volume) 18 U/L 5-34 Serum or plasma alanine aminotransferase measurement (enzymatic activity/volume ) 16 U/L 0-55 Serum or plasma protein measurement (mass/volume) 7.0 g/dL 6.4-8.2 Serum or plasma albumin measurement (mass/volume) 4.3 g/dL 3.2-4.5 Magnesium - 04/03/18 11:56 Magnesium 2.1 mg/dL 1.8-2.4 Serum or plasma troponin i.cardiac measurement (mass/volume) - 04/03/18 11:56 Serum or plasma troponin i.cardiac measurement (mass/volume) < ng/ mL <0.30 Fibrin D-dimer FEU measurement in platelet poor plasma (mass/volume) - 11:56 Fibrin D-dimer FEU measurement in platelet poor plasma (mass/volume) 0.51 ug/mL 0.00-0.49 Myoglobin, serum - 04/03/18 11:56 Myoglobin, serum 31.4 ng/mL 10.0-92.0 Lipase - 04/03/18 11:56 Lipase 27 U/L 8-78 Encounters ACCT No. Visit Date/Time Discharge Status Pt. Type Provider Facility Loc./Unit Complaint [id number] 03/15/2015 17:47:00 03/15/2015 23:59:59 CLS Outpatient VLADISLAV OWENS APRN [id number] 10/15/2014 10:50:00 10/15/2014 23:59:59 CLS Outpatient VLADISLAV OWENS APRN [id number] 10/15/2014 10:50:00 10/15/2014 23:59:59 CLS Outpatient VLADISLAV OWENS APRN [id number] 11/10/2013 08:20:00 11/10/2013 23:59:59 CLS Outpatient RENETTA CARPIO MD [id number] 08/29/2013 15:10:00 08/29/2013 23:59:59 CLS Outpatient CONSTANTIN MCNAIR DDS [id number] 02/20/2012 09:24:00 Document Registration [id number] 04/25/2017 09:12:00 Document Registration [id number] 04/05/2018 13:20:00 ACT [facility] [id number] 04/04/2018 11:36:00 04/04/2018 23:59:59 CLS Outpatient SABRINA ARNOLD MD [facility] CARD R00.2 PALPITATIONS [id number] 04/03/2018 11:46:00 04/03/2018 15:38:00 DIS Outpatient MARK GODOY MD [facility] ER COUGH/HEART FLUTTERING [id number] 02/06/2018 13:30:00 02/06/2018 17:14:00 DIS Emergency RAEANN RAINES [facility] ER OFF BALANCE [id number] 08/07/2017 20:01:00 08/07/2017 22:34:00 DIS Emergency VIRAL CHILDS APRN [facility] ER PT FEELS LIKE SOMETHING IS STUCK IN HER THROAT [id number] 05/10/2017 13:13:00 05/10/2017 15:05:00 DIS Emergency VIRAL CHILDS APRN [facility] ER LEFT SIDE HEAD/NECK/ SHOULDER PAIN [id number] 05/06/2017 18:33:00 05/06/2017 20:33:00 DIS Emergency RAEANN RAINES [facility] ER HEADACHE/NECK PAIN [id number] 04/27/2017 23:38:00 04/28/2017 03:37:00 DIS Emergency DANA DON DO [facility] ER PASSED OUT,HEAD RT CHECK PAINFUL [id number] 04/20/2017 20:57:00 04/20/2017 22:28:00 DIS Emergency USMAN MISTRY MD [facility] ER PALPITATIONS/SOB/ TIGHT IN CHEST/SWELLING/HEADACHE [id number] 04/19/2017 14:04:00 04/19/2017 17:29:00 DIS Emergency VIRAL CHILDS APRN [facility] ER RAPID HEART RATE FATIGUE HEADACHE [id number] 03/19/2017 12:55:00 03/19/2017 23:59:59 CLS Emergency USMAN MISTRY MD [facility] ER RASH/POSS POISON VALENTINE [id number] 03/09/2016 04:39:00 03/09/2016 05:12:00 DIS Emergency VASILE SARMIENTO DO [facility] ER FO IN RT EYE [id number] 01/05/2016 01:10:00 01/05/2016 02:35:00 DIS Emergency JAYNE TRIPLETT, MARK Mcintosh [facility] ER PAIN ALL OVER,VOMITING ,CHILLS [id number] 01/03/2016 14:29:00 01/03/2016 18:20:00 DIS Emergency RAEANN RAINES [facility] ER GENERAL PAIN/SOA [id number] 10/01/2015 13:19:00 10/01/2015 15:43:00 DIS Emergency JENN TRIPLETT, LAUREN S [facility] ER CHEST PAIN [id number] 09/06/2015 12:58:00 09/06/2015 13:50:00 DIS Emergency VIRAL CHILDS APRN [facility] ER RASH/SKIN ISSUES [id number] 07/01/2015 07:27:00 07/01/2015 08:54:00 DIS Emergency VASILE SARMIENTO DO [facility] ER BACK PAIN;RASH [id number] 05/12/2015 02:43:00 05/12/2015 04:16:00 DIS Emergency VASILE SARMIENTO DO [facility] ER HEAD ACHE [id number] 02/28/2015 20:05:00 02/28/2015 21:25:00 DIS Emergency VIRAL CHILDS APRN [facility] ER DIZZINESS,LETHARGIC [id number] 10/20/2014 11:55:00 10/20/2014 23:59:59 CLS Outpatient VLADISLAV OWENS APRN [facility] RAD BILATERAL DUCTAL PAIN AND SWELLING [id number] 10/12/2014 13:33:00 10/12/2014 15:13:00 DIS Emergency VASILE SARMIENTO DO [facility] ER HEADACHE BREAST DISCHARGE/ PAIN [id number] 07/08/2014 22:37:00 07/09/2014 12:30:00 DIS Inpatient PIERCE TRIPLETT, KEYLA Elise [facility] 4TH LEFT SIDED NUMBNESS; HEADACHE [id number] 07/02/2014 12:15:00 07/02/2014 14:24:00 DIS Emergency GUILLERMINA DO, VASILE K [facility] ER HEART FLUTTERING [id number] 03/25/2014 17:37:00 03/25/2014 18:46:00 DIS Emergency MARK GODOY MD [facility] ER BACK PAIN [id number] 02/19/2014 18:28:00 02/19/2014 20:47:00 DIS Emergency RAEANN RAINES [facility] ER BACK PAIN [id number] 06/22/2016 13:59:00 Document Registration [id number] 06/22/2016 13:59:00 Document Registration [id number] 12/29/2015 01:40:00 Document Registration [id number] 11/23/2011 13:15:00 Document Registration [id number] 11/20/2011 21:45:00 Document Registration [id number] 07/02/2011 03:16:00 Document Registration [id number] 05/03/2011 09:02:00 Document Registration [id number] 09/23/2008 14:45:00 Document Registration
--- NOTE | 2018-04-08 13:10 | ED Chest Pain ---
General Chief Complaint: Cardiac/General Problems Stated Complaint: IRREG HEARTRATE,WEAK Source: patient, old records Exam Limitations: no limitations History of Present Illness Date Seen by Provider: April 08, 2018 Time Seen by Provider: 12:46 Initial Comments Patient presents to the ER by private conveyance with a chief complaint that she is having some chest palpitations and low chest pressure in the middle of her chest about a 4 out of 10. The chest pressure/pain radiates to her left shoulder as well as her left jaw and is accompanied by nausea as well as sweats. She says been going on for about 2 days now. She's had off-and-on prior to that and was in the ER and was told she was in atrial fibrillation/flutter. She does not feel that her heart is racing right now and she went saw her primary care doctor earlier and he put her on a campus monitor and she is supposed to go get the results of that and some lab work today. She has no known history of thyroid disorder or hypertension. She does not have cholesterolemia or diabetes. Her father had a heart attack in his 50s. She has never had a heart attack before. She is not a smoker nor she ever been. She does not feel the palpitations presently but she feels a little weak, worn out and tired. Her primary care doctor had planned to start her on a beta robby today at her visit. When she went to the clinic her doctor was not back from lunch and since she was feeling so poorly they advised her to go to the ER to be evaluated. Allergies and Home Medications Allergies Coded Allergies: morphine (Verified Allergy, Unknown, 04/27/17) Home Medications Cyclobenzaprine HCl 10 Mg Tablet, 10 MG PO Q8H PRN for neck spasm Prescribed by: DANA DON on 04/28/17 032 Diclofenac Sodium 50 Mg Tablet.dr, 50 MG PO Q6H PRN for neck/facial pain Prescribed by: DANA DON on 04/28/17 032 Diclofenac Sodium 75 Mg Tablet.dr, 75 MG PO BID PRN for pain Prescribed by: RAEANN SILVA on 02/06/18 1656 Famotidine 20 Mg Tablet, 20 MG PO BID Prescribed by: RAEANN SILVA on 01/03/16 1742 Lisinopril 20 Mg Tablet, 20 MG PO DAILY Prescribed by: MARK GODOY on 04/03/18 1528 Orphenadrine Citrate 100 Mg Tablet.er, 100 MG PO BID PRN for SPASMS Prescribed by: RAEANN SILVA on 05/06/172027 Orphenadrine Citrate 100 Mg Tablet.er, 100 MG PO BID PRN for SPASMS Prescribed by: RAEANN SILVA on 02/06/18 1656 Pantoprazole Sodium 40 Mg Tablet.dr, 40 MG PO DAILY Prescribed by: VIRAL CHILDS on 08/07/172208 Paroxetine HCl 40 Mg Tablet, 40 MG PO DAILY, (Reported) Tramadol HCl 50 Mg Tablet, 50-100 MG PO Q4H PRN for PAIN-MILD TO MODERATE Prescribed by: RAEANN SILVA on 05/06/172027 Patient Home Medication List Home Medication List Reviewed: Yes Review of Systems Constitutional: No chills; diaphoresis EENTM: No Blurred Vision, No Double Vision Respiratory: Denies Cough, Denies Shortness of Air, Denies SOA With Exertion, Denies Wheezing Cardiovascular: See HPI, Chest Pain; Denies Edema; Irregular Heart Rate, Palpitations; Denies Syncope Gastrointestinal: Denies Constipated, Denies Diarrhea; Nausea; Denies Vomiting Genitourinary: Denies Burning, Denies Discharge Musculoskeletal: No back pain, No joint pain Skin: No pruritus, No rash Psychiatric/Neurological: Denies Headache, Denies Numbness, Denies Paresthesia Past Mogspyb-Mmkmak-Ylocax Hx Patient Social History Alcohol Use: Denies Use Recreational Drug Use: No Smoking Status: Never a Smoker 2nd Hand Smoke Exposure: No Recent Hopitalizations: No Immunizations Up To Date Tetanus Booster (TDap): More than 5yrs Date of Pneumonia Vaccine: Dec 30, 2015 Seasonal Allergies Seasonal Allergies: No Past Medical History Surgeries: Yes (WISDOM TEETH) Respiratory: No Cardiac: Yes (tachycardia) High Cholesterol, Hypertension Neurological: Yes (OCCASIONAL HEADACHES) Concussion, Headaches /Migraines, Stroke 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 Disorders: No 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 Disorders: Denies [employer] History: Menopausal Sexually Transmitted Disease: No Genitourinary: No Gastrointestinal: No Musculoskeletal: Yes (CHRONIC NECK PAIN) Scoliosis, Chronic Back Pain Endocrine: No HEENT: No Cancer: No Psychosocial: Yes Anxiety, Depression Integumentary: No Recent Skin Changes Blood Disorders: No Family Medical History Cardiovascular disease FH: breast cancer 19 MOTHER (METS) FH: lung cancer 19 FATHER FHx: mental retardation G8 BROTHER Myocardial infarction 19 FATHER (X2) Heart Disease, Cancer Physical Exam Vital Signs Vital Signs - First Documented 04/08/18 12:50 Temp 98.6 Pulse 90 Resp 20 B/P (MAP) 133/99 (110) Pulse Ox 100 Capillary Refill : General Appearance: No Apparent Distress, WD/WN HEENT: PERRL/EOMI, Normal ENT Inspection, Pharynx Normal Neck: Full Range of Motion, Non Tender, Supple Respiratory: Chest Non Tender, Lungs Clear, Normal Breath Sounds, No Accessory Muscle Use, No Respiratory Distress Cardiovascular: Regular Rate, Rhythm, No Edema, No Gallop, No Murmur, Normal Peripheral Pulses Gastrointestinal: Normal Bowel Sounds, Non Tender, Soft Extremity: Normal Capillary Refill, Non Tender, No Calf Tenderness, No Pedal Edema Neurologic/Psychiatric: Alert, Oriented x3 Skin: Normal Color, Warm/Dry Progress/Results/Core Measures Results/Orders Lab Results Laboratory Tests Test 04/08/18 12:55 04/08/18 16:10 Range/Units White Blood Count 5.2 4.3-11.0 10^3/uL Red Blood Count 4.27 L 4.35-5.85 10^6/uL Hemoglobin 12.3 11.5-16.0 G/DL Hematocrit 37 35-52 % Mean Corpuscular Volume 87 80-99 FL Mean Corpuscular Hemoglobin 29 25-34 PG Mean Corpuscular Hemoglobin Concent 33 32-36 G/DL Red Cell Distribution Width 14.0 10.0-14.5 % Platelet Count 242 130-400 10^3/uL Mean Platelet Volume 10.5 H 7.4-10.4 FL Neutrophils (%) (Auto) 53 42-75 % Lymphocytes (%) (Auto) 36 12-44 % Monocytes (%) (Auto) 6 0-12 % Eosinophils (%) (Auto) 4 0-10 % Basophils (%) (Auto) 1 0-10 % Neutrophils # (Auto) 2.7 1.8-7.8 X 10^3 Lymphocytes # (Auto) 1.9 1.0-4.0 X 10^3 Monocytes # (Auto) 0.3 0.0-1.0 X 10^3 Eosinophils # (Auto) 0.2 0.0-0.3 10^3/uL Basophils # (Auto) 0.0 0.0-0.1 10^3/uL Prothrombin Time 12.8 12.2-14.7 SEC INR Comment 1.0 0.8-1.4 Activated Partial Thromboplast Time 27 24-35 SEC Sodium Level 140 135-145 MMOL/L Potassium Level 4.1 3.6-5.0 MMOL/L Chloride Level 108 H 98-107 MMOL/L Carbon Dioxide Level 24 21-32 MMOL/L Anion Gap 8 5-14 MMOL/L Blood Urea Nitrogen 9 7-18 MG/DL Creatinine 0.76 0.60-1.30 MG/DL Estimat Glomerular Filtration Rate > 60 BUN/Creatinine Ratio 12 Glucose Level 96 70-105 MG/DL Calcium Level 9.5 8.5-10.1 MG/DL Magnesium Level 2.0 1.8-2.4 MG/DL Total Bilirubin 0.6 0.1-1.0 MG/DL Aspartate Amino Transf (AST/SGOT) 22 5-34 U/L Alanine Aminotransferase (ALT/SGPT) 17 0-55 U/L Alkaline Phosphatase 101 40-136 U/L Myoglobin 32.1 10.0-92.0 NG/ML Troponin I < 0.30 < 0.30 <0.30 NG/ML Total Protein 7.1 6.4-8.2 GM/DL Albumin 4.2 3.2-4.5 GM/DL My Orders Orders - RHONDA SEGURA Aspirin Chewable Tablet (Baby Aspirin Ch (04/08/18 12:54) Cbc With Automated Diff (04/08/18 12:58) Magnesium (04/08/18 12:58) Chest 1 View, Ap/Pa Only (04/08/18 12:58) Ekg Tracing (04/08/18 12:58) Cardiac Profile 1 (04/08/18 12:58) Comprehensive Metabolic Panel (04/08/18 12:58) Myoglobin Serum (04/08/18 12:58) Protime With Inr (04/08/18 12:58) Partial Thromboplastin Time (04/08/18 12:58) O2 (04/08/18 12:58) Monitor-Rhythm Ecg Trace Only (04/08/18 12:58) Lipid Panel (04/09/18 06:00) Aspirin Chewable Tablet (Baby Aspirin Ch (04/08/18 13:00) Saline Lock/Iv-Start (04/08/18 12:58) Saline Lock/Iv-Start (04/08/18 12:58) Lactated Ringers (Lr 1000 Ml Iv Solution (04/08/18 12:58) Ondansetron Injection (Zofran Injectio (04/08/18 13:30) Acetaminophen Tablet (Tylenol Tablet) (04/08/18 14:00) Ekg Tracing (04/08/18 16:18) Troponin I (04/08/18 16:18) Medications Given in ED Current Medications Medications Dose Ordered Sig/Lyndsay Route Start Time Stop Time Status Last Admin Dose Admin Acetaminophen 1,000 mg ONCE ONCE PO 04/08/18 14:00 04/08/18 14:01 DC 04/08/18 15:04 1,000 MG Aspirin 81 mg STK-MED ONCE .ROUTE 04/08/18 12:54 04/08/18 13:00 DC 04/08/18 13:05 324 MG Lactated Ringer's 1,000 ml @ 0 mls/hr Q0M ONCE IV 04/08/18 12:58 04/08/18 13:08 DC 04/08/18 13:29 0 MLS/HR Ondansetron HCl 4 mg ONCE ONCE IVP 04/08/18 13:30 04/08/18 13:31 DC 04/08/18 13:29 4 MG Vital Signs/I&O 04/08/18 12:50 Temp 98.6 Pulse 90 Resp 20 B/P (MAP) 133/99 (110) Pulse Ox 100 Progress Progress Note #1: Time: 13:22 Progress Note Patient was seen April 03, 2018, 5 days ago by this ER for heart palpitations and flutter and physical exam notes a regular rate and rhythm as well as an EKG is documented showing normal sinus rhythm 89. No mention of any atrial fibrillation or atrial flutter was documented. Discussed the case with Dr. Finch and plan to get a Holter monitor evaluation ordered outpatient at that time. Progress Note #2: Time: 13:57 Progress Note Chest pressure has resolved however she still having quite a headache and aspirin has not helped. We'll offer her some Tylenol at this time. Initial ECG Impression Date: April 08, 2018 Initial ECG Impression Time: 13:01 Initial ECG Rate: 85 Initial ECG Rhythm: Normal Sinus Initial ECG Intervals: Normal Initial ECG Impression: Normal Initial ECG Comparisson: Unchanged Comment Normal sinus rhythm without ST-T wave elevation or depression EKG : EKG Time: 16:04 Rate: 67 Rhythm: Normal Sinus Intervals: Normal ECG Comparisson: Unchanged ECG Impression: Normal Comment No acute ST elevation or depression. Normal sinus rhythm. Diagnostic Imaging Diagonstic Imaging: Xray Plain Films/CT/US/NM/MRI: chest Comments [facility], [place] NAME: [facility] REC#: [id number] PT STATUS: REG ER : 1970 PHYSICIAN: RHONDA SEGURA MD ADMIT DATE: 04/08/18/ER Draft Date of Exam:04/08/18 CHEST 1 VIEW, AP/PA ONLY INDICATION: Palpitations and chest pressure. TIME OF EXAM: 1:26 p.m. Correlation is made with prior study from 04/03/2018. The heart size is normal. The pulmonary vascularity is unremarkable. The lungs are clear. No infiltrate, effusion or pneumothorax is detected. IMPRESSION: No acute cardiopulmonary process is detected. Dictated on workstation # [id number] Dict: 04/08/18 1333 Trans: 04/08/18 1335 [facility] [id number] Interpreted by: ADRYAN CHURCH MD Electronically signed by: Reviewed: Reviewed by Me Consults : Consulting Physician: Chapis HENRIQUEZ MD Consults Notes We discussed the patient's EKG presentation and labs. He would like to see her in the clinic if she doesn't 3 hour delta troponin that is still negative. He has clinic this Sunday and Sunday. Departure Impression Primary Impression: Chest tightness or pressure Additional Impression: Intermittent palpitations Disposition: 01 HOME, SELF-CARE Condition: Stable Departure-Patient Inst. Decision time for Depature: 17:00 Referrals: RENETTA CARPIO MD (PCP/Family) Primary Care Physician Chapis HENRIQUEZ MD Patient Instructions: Chest Pain (DC) Add. Discharge Instructions: Please call Dr. Henriquez, cardiology tomorrow and request an appointment this week. You can also discuss with the clinic the results of your Holter monitor test. All discharge instructions reviewed with patient and/or family. Voiced understanding. Copy Copies To 1: RAVI RASMUSSEN DO; Chapis HENRIQUEZ MD, TITUS J April 08, 2018 13:10
[2018-04-08] MEDS ORDERED: ONDANSETRON 4 MG/2 ML (SDV) Z0FRAN IVP ONE (13:30)
--- NOTE | 2018-04-08 13:35 | Diagnostic Imaging Report ---
INDICATION: Palpitations and chest pressure. TIME OF EXAM: 1:26 p.m. Correlation is made with prior study from 04/03/2018. The heart size is normal. The pulmonary vascularity is unremarkable. The lungs are clear. No infiltrate, effusion or pneumothorax is detected. IMPRESSION: No acute cardiopulmonary process is detected. Dictated by: Dictated on workstation # [id number]
[2018-04-08 13:46] LABS: BASOPHILS % (AUTO) 1 % (0-10); EOSINOPHILS # (AUTO) 0.2 10^3/uL (0.0-0.3); EOSINOPHILS % (AUTO) 4 % (0-10); HEMATOCRIT 37 % (35-52); HEMOGLOBIN 12.3 G/DL (11.5-16.0); LYMPHOCYTES # (AUTO) 1.9 X 10^3 (1.0-4.0); LYMPHOCYTES % (AUTO) 36 % (12-44); MEAN CORPUSCULAR HEMOGLOBIN 29 PG (25-34); MEAN CORPUSCULAR HGB CONC 33 G/DL (32-36); MEAN CORPUSCULAR VOLUME 87 FL (80-99); MEAN PLATELET VOLUME 10.5 FL (7.4-10.4); MONOCYTES # (AUTO) 0.3 X 10^3 (0.0-1.0); MONOCYTES % (AUTO) 6 % (0-12); NEUTROPHILS # (AUTO) 2.7 X 10^3 (1.8-7.8); NEUTROPHILS % (AUTO) 53 % (42-75); PLATELET COUNT 242 10^3/uL (130-400); RED BLOOD COUNT 4.27 10^6/uL (4.35-5.85); WHITE BLOOD COUNT 5.2 10^3/uL (4.3-11.0)
[2018-04-08 13:50] LABS: PROTHROMBIN TIME PATIENT 12.8 SEC (12.2-14.7)
[2018-04-08 13:58] LABS: ALANINE AMINOTRANSFERASE 17 U/L (0-55); ALBUMIN 4.2 GM/DL (3.2-4.5); ALKALINE PHOSPHATASE 101 U/L (40-136); BILIRUBIN,TOTAL 0.6 MG/DL (0.1-1.0); BUN/CREATININE RATIO 12; CALCIUM 9.5 MG/DL (8.5-10.1); CARBON DIOXIDE 24 MMOL/L (21-32); CHLORIDE 108 MMOL/L (98-107); CREATININE SERUM 0.76 MG/DL (0.60-1.30); GFR ESTIMATED > 60; GLUCOSE 96 MG/DL (70-105); POTASSIUM 4.1 MMOL/L (3.6-5.0); SODIUM 140 MMOL/L (135-145); TOTAL PROTEIN 7.1 GM/DL (6.4-8.2)
[2018-04-08] MEDS ORDERED: ACETAMINOPHEN 500 MG TAB (TYLENOL) PO ONE (14:00)
[2018-04-08 14:05] LABS: MYOGLOBIN SERUM 32.1 NG/ML (10.0-92.0)
== END 2018-04-08 17:40 | disposition home or self-care (01) ==
LOC: EDUNIT# 12:48 → ER 12:50
DX: R07.89 Other chest pain (principal); R00.2 Palpitations; E78.00 Pure hypercholesterolemia, unspecified; I10 Essential (primary) hypertension; G43.909 Migraine, unspecified, not intractable, without status migrainosus; F41.9 Anxiety disorder, unspecified; F32.9 Major depressive disorder, single episode, unspecified; Z86.73 Personal history of transient ischemic attack (TIA), and cerebral infarction without residual deficits; Z80.3 Family history of malignant neoplasm of breast; Z80.1 Family history of malignant neoplasm of trachea, bronchus and lung; Z82.49 Family history of ischemic heart disease and other diseases of the circulatory system; Z88.5 Allergy status to narcotic agent
CPT/HCPCS: 36415; 71045; 80053; 83735; 83874; 84484; 85025; 85610; 85730; 93005; 93041; 96374

== ENCOUNTER → 2018-04-18 | Outpatient (CLI) | payer SELFPAY | LOC: CARD 12:32 | PROVIDERS: ATTEND Internal Medicine Interventional Cardiology | DX: I10 Essential (primary) hypertension (principal); R07.89 Other chest pain; R53.83 Other fatigue; R00.2 Palpitations; R06.02 Shortness of breath | CPT/HCPCS: 93306 ==

== ENCOUNTER 2019-01-07 14:27 | Emergency (ER) | payer SELFPAY ==
[~2019-01-07] VITALS: Ht 167.6 cm; Wt 81.6 kg
[2019-01-07] MEDS ORDERED: ASPIRIN 81 MG CHEW (CHILDREN'S ASA) PO ONE (14:45)
--- OUTSIDE RECORDS SUMMARY | 2019-01-07 14:54 | XMS REPORT ---
Author Author ROSALBA PAULINO [facility] Address [address] [place] [address] Care Team Providers Care Airport Operations Coordinator Name Role Phone JEFFERSON ROSALBA Unavailable PROBLEMS Type Condition ICD9-CM Code XJM93-[id number] Code Onset Dates Condition Status SNOMED Code Problem Atrial tachycardia I47.1 Active 336702595 Problem Iron deficiency anemia, unspecified iron deficiency anemia type D50.9 Active 70495696 Problem Anemia, unspecified type D64.9 Active 542961011 Problem Dysthymia F34.1 Active 63940877 ALLERGIES Substance Reaction Event Type Date Status Morphine Sulfate rash Drug Allergy Apr, Active ENCOUNTERS Encounter Location Date Diagnosis [facility] [address] [address] Apr, Acute bacterial conjunctivitis of left eye H10.32 and Allergic conjunctivitis of left eye H10.12 [place] [address] [address] March, [place] [address] [address] March, [place] [address] [address] March, Atrial tachycardia I47.1 [place] [address] [address] March, Palpitations R00.2 [place] [address] [address] 5[address] March, [place] [address] [address] Jan, [place] [address] [place] [address] Jan, [facility] [id number] [place] [address]1940[address] 1511 Jul, [facility] [id number] [place] [address]1158 Jun, Acute right eye pain H57.11 [facility] [address] [place] [id number] [place] [address] 80649- 1821 Jun, Dysthymia F34.1 [place] [address] [place] [id number] [place] [address] 95665- 0907 Apr, [place] [address] [place] [id number] [place] [address] 75712- 3642 Apr, Syncope, unspecified syncope type R55 [place] [address] [place] [id number] [place] [address] 43386- 8551 Apr, Iron deficiency anemia, unspecified iron deficiency anemia type D50.9 [place] [address] [place] [id number] [place] [address] 86808- 4378 Apr, [place] [address] [place] [id number] [place] [address] 49221- 5847 March, Anemia, unspecified type D64.9 [place] [address] [place] [id number] [place] [address] 31919- 9558 Jan, Acute non-recurrent maxillary sinusitis J01.00 [place] [address] [place] [id number] [place] [address] 75694- 0269 09 Jan, 2017 Lumbar strain, initial encounter S39.012A and Acute nasopharyngitis J00 [place] [address] [place] [id number] [place] [address] 73743- 0634 Oct, Dysthymia F34.1 [place] [address] [place] [id number] [place] [address] 05675[address]35 Aug, [facility] [address] [place] [address] [address] 03 Aug, 2016 [facility] [address] 96039- 2199 28 Apr, 2016 Encounter for other administrative examinations Z02.89 [facility] [address] 58[address]- 5628 07 Apr, [address] [facility] [address] 63274- 0679 11 Dec, 2015 GERD (gastroesophageal reflux disease) K21.[address] [facility] [address] 51969- 0941 09 Dec, 2015 [facility] [address] [address] 28 Nov, 2015 Candidal vaginitis B37.3 ; Rash R21 ; History of nipple discharge Z87.[address] [facility] [address] 42172- 7152 06 Sep, [address] [facility] [address] [id number] 15 Aug, 2015 Encounter for dental examination Z01.20 [facility] [address] 04346- 2731 13 Aug, 2015 [facility] [address] 99742- [address]647 Jun, [facility] [address] 07835- 3322 Jun, Uterine enlargement 621.2 [facility] [address] 55336- 0396 14 Feb, 2015 [facility] [address] 46282- 6628 13 Feb, 2015 [facility] [address] 94631- 9828 Jan, [facility] [place] [facility] [address] [id number] [place] [address] 1665 Jan, [facility] [place] [facility] [address] [id number] [place] [address]- 6589 Nov, [facility] [place] [facility] [address] [id number] [place] [address] 1524 Nov, [facility] [place] [facility] [address] [id number] [place] [address] 9798 Oct, [facility] [place] [facility] [address] [id number] [place] [address]- 5079 Oct, [facility] [place] [facility] [address] [id number] [place] [address]- 7506 Oct, [facility] [place] [facility] [address] [id number] [place] [address]- 0841 Oct, [facility] [place] [facility] [address] [id number] [place] [address]- 8623 Oct, [facility] [place] [facility] [address] [id number] [place] [address]- 0396 Oct, [facility] [place] [facility] [address] [id number] [place] [address]- 2515 Sep, [facility] [place] [facility] [address] [id number] [place] [address]- 6917 Sep, [facility] [place] [facility] [address] [id number] [place] [address]- 7677 Sep, [facility] [place] [facility] [address] [id number] [place] [address]- 6335 Sep, [facility] [place] [facility] [address] [id number] [place] [address]- 0523 Sep, [facility] [place] [facility] [address] [id number] [place] [address]- 6723 Sep, [facility] [place] [facility] [address] [id number] [place] [address]- 4627 Sep, [facility] [address] [id number] [place] [address]- 1091 Sep, [facility] [place] [facility] [address] [id number] [place] [address] 2546 Jun, [facility] [address] [id number] [place] [address]- 7936 Jun, [facility] [place] [facility] [address] [id number] [place] [address]- 8215 Jun, [facility] [address] [id number] [place] [address]- 5861 March, [facility] [place] [facility] [address] [id number] [place] [address]- 7716 March, [facility] [address] [id number] [place] [address]- 9163 Oct, [facility] [address] [id number] [place] [address]- 2676 16 Oct, 2013 [facility] [place] [facility] [address] [id number] [place] [address]- 1323 Oct, [facility] [address] [id number] [place] [address]- 5983 Oct, [facility] [place] [facility] [address] [id number] [place] [address]- 0665 14 Aug, 2013 [facility] [place] [facility] [address] [id number] [place] [address]- 7158 Aug, [facility] [place] [facility] [address] [id number] [place] [address]- 5653 24 Apr, 2013 [facility] [place] [facility] [address] [id number] [place] [address]- 9066 Apr, [facility] [place] [facility] [address] [id number] [place] [address]- 2872 Jan, [facility] [address] [facility] [id number] [place] [address]994 Jan, [facility] [address] [facility] [id number] [place] [address]- 8806 Oct, IMMUNIZATIONS No Known Immunizations SOCIAL HISTORY Never Assessed REASON FOR VISIT pink eye Pt c/o pink, puffy, itchy watery eyes since this morning CONSUELO Courtney PLAN OF CARE Activity Details Follow Up prn Reason: VITAL SIGNS Height 67 in 2018-05-17 Weight 209.8 lbs 2018-05-17 Temperature 98.2 degrees Fahrenheit 2018-05-17 Heart Rate 100 bpm 2018-05-17 Respiratory Rate 18 2018-05-17 BMI 32.86 kg/m2 2018-05-17 Blood pressure systolic 142 mmHg 2018-05-17 Blood pressure diastolic 100 mmHg 2018-05-17 MEDICATIONS Medication Instructions Dosage Frequency Start Date End Date Duration Status Zyrtec Allergy 10 MG Orally Once a day 1 tablet 24h Apr, May, 30 day(s) Active Maxitrol 3.5-52287-2.1 Ophthalmic Four times a day 1 drop into affected eye 6h Apr, 7 days Active Paxil 40 mg Orally Once a day 1 tablet in the morning 24h 90 Active RESULTS No Results PROCEDURES No Known procedures INSTRUCTIONS MEDICATIONS ADMINISTERED No Known Medications MEDICAL (GENERAL) HISTORY Type Description Date Medical History High Blood Pressure Medical History Heart Murmur Medical History Atrial Tachycardia Hospitalization History Cardiac related concerns but no diagnosis Hospitalization History Cardiac concerns 03/2018
--- OUTSIDE RECORDS SUMMARY | 2019-01-07 14:54 | XMS REPORT ---
Author Author RENETTA CARPIO Organization [facility] Address [address] [place] [address] Care Team Providers Care Basket Patcher Name Role Phone RENETTA CARPIO Unavailable PROBLEMS Type Condition ICD9-CM Code SDN35-OO Code Onset Dates Condition Status SNOMED Code Problem Atrial tachycardia I47.1 Active 191749904 Problem Iron deficiency anemia, unspecified iron deficiency anemia type D50.9 Active 69480880 Problem Anemia, unspecified type D64.9 Active 866898282 Problem Dysthymia F34.1 Active 75489872 ALLERGIES No Information ENCOUNTERS Encounter Location Date Diagnosis [place] [address] [address] Oct, [facility] [address] [address] Oct, [facility] [address] [address] Apr, Acute bacterial conjunctivitis of left eye H10.32 and Allergic conjunctivitis of left eye H10.12 [place] [address] [place] [id number] [place] [address]63- 6770 March, [facility] [address] [address]24[address]841 March, [facility] [address] [address]- 9306 March, Atrial tachycardia I47.1 [facility] [address] 82073- 9672 March, Palpitations R00.2 [place] [address] 12[address]- [address]305 March, [facility] [address] [address] 2025 Jan, [facility] [address] [place] [id number] [place] [address]6911- 7311 Jan, [facility] [address] [address]- 5832 Jul, [facility] [address] [place] [id number] [place] [address]3713 -6467 Jun, Acute right eye pain H57.11 [place] [address] [place] [id number] [place] [address] 10684- 3199 Jun, Dysthymia F34.1 [place] [address] [place] [id number] [place] [address] 20266- 8457 Apr, [place] [address] [place] [id number] [place] [address] 16326- 6881 Apr, Syncope, unspecified syncope type R55 [place] [address] [place] [id number] [place] [address] 12007- 6211 Apr, Iron deficiency anemia, unspecified iron deficiency anemia type D50.9 [place] [address] [place] [id number] [place] [address] 57935- 2839 Apr, [place] [id number] [place] [address] 90998- 8456 March, Anemia, unspecified type D64.9 [place] [id number] [place] [address] 83419- 6020 Jan, Acute non-recurrent maxillary sinusitis J01.00 [place] [address] [place] [id number] [place] [address] 64574- 9671 09 Jan, 2017 Lumbar strain, initial encounter S39.012A and Acute nasopharyngitis J00 [place] [address] [address]- 6146 Oct, Dysthymia F34.1 [facility] [address] [place] [id number] [place] [address] 39435- [address], [address] [facility] [address] 01756- [address]388 Aug, [facility] [address] 09472- 0846 Apr, Encounter for other administrative examinations Z02.89 [facility] [address] 27163- 1320 07 Apr, [address] [facility] [address] 05954- 9392 11 Dec, 2015 GERD (gastroesophageal reflux disease) K21.[address] [facility] [address] 61399- 1580 Dec, [facility] [address] 19604 -2039 Nov, Candidal vaginitis B37.3 ; Rash R21 ; History of nipple discharge Z87.[address] [facility] [address] [place] [id number] [place] [address] 43886- 8112 Sep, [facility] [place] [facility] [address] [place] [id number] [place] [address] [id number] Aug, Encounter for dental examination Z01.20 [facility] [address] 80591- 3426 Aug, [facility] [address] 27079- [address] Jun, [facility] [address] 57068- 1572 Jun, Uterine enlargement 621.2 [facility] [address] 79217- 0365 Feb, [facility] [place] [facility] [address] [id number] [place] [address]- 4476 Feb, [facility] [place] [facility] [address] [id number] [place] [address]- 1602 Jan, [facility] [place] [facility] [address] [id number] [place] [address]- 4588 Jan, [facility] [place] [facility] [address] [id number] [place] [address]- 4872 Nov, [facility] [place] [facility] [address] [id number] [place] [address]- 0273 Nov, [facility] [place] [facility] [address] [id number] [place] [address]- 2685 Oct, [facility] [place] [facility] [address] [id number] [place] [address]- 3947 Oct, [facility] [place] [facility] [address] [id number] [place] [address]- 0543 Oct, [facility] [place] [facility] [address] [id number] [place] [address]- 8335 Oct, [facility] [place] [facility] [address] [id number] [place] [address]- 5630 Oct, [facility] [place] [facility] [address] [id number] [place] [address]- 0073 Oct, [facility] [place] [facility] [address] [id number] [place] [address]- 9787 Sep, [facility] [place] [facility] [address] [id number] [place] [address]- 7865 Sep, [facility] [place] [facility] [address] [id number] [place] [address]- 8292 Sep, [facility] [place] [facility] [address] [id number] [place] 8815 Sep, [facility] [place] [facility] [address] [id number] [place] [address]- 7584 Sep, [facility] [place] [facility] [address] [id number] [place] [address]- 6805 Sep, [facility] [place] [facility] [address] [id number] [place] [address]- 9701 Sep, [facility] [place] [facility] [address] [id number] [place] [address]- 9233 Sep, [facility] [place] [facility] [address] [id number] [place] [address]- 6960 Jun, [facility] [place] [facility] [address] [id number] [place] [address]- 4075 Jun, [facility] [place] [facility] [address] [id number] [place] [address]- 3227 Jun, [facility] [place] [facility] [address] [id number] [place] [address]- 8353 March, [facility] [place] [facility] [address] [id number] [place] [address]- 6960 March, [facility] [place] [facility] [address] [id number] [place] [address]- 0441 Oct, [facility] [place] [facility] [address] [id number] [place] [address]- 0151 16 Oct, 2013 [facility] [place] [facility] [address] [id number] [address]- 6049 Oct, [facility] [place] [facility] [address] [id number] [address]- 7782 Oct, [facility] [place] [facility] [address] [id number] [place] [address]- 3328 14 Aug, 2013 [facility] [place] [facility] [address] [id number] [address]- 2773 14 Aug, 2013 [facility] [place] [facility] [address] [id number] [place] [address]- 3816 24 Apr, 2013 [facility] [place] [facility] [address] [facility] [id number] [place] [address]- [address]66 Apr, [facility] [address] [facility] [id number] [address] 2925 Jan, [facility] [address] [facility] [id number] [address]- 8872 Jan, [facility] [address] [facility] [id number] [address]- 4256 Oct, IMMUNIZATIONS No Known Immunizations SOCIAL HISTORY Never Assessed REASON FOR VISIT Refill request PLAN OF CARE VITAL SIGNS MEDICATIONS Medication Instructions Dosage Frequency Start Date [...]
--- OUTSIDE RECORDS SUMMARY | 2019-01-07 14:55 | XMS REPORT ---
Author Author RENETTA CARPIO Organization [facility] Address [address] [place] [address] Care Team Providers Care Licensed Club Manager Name Role Phone RENETTA CARPIO Unavailable PROBLEMS Type Condition ICD9-CM Code ZEP37-ML Code Onset Dates Condition Status SNOMED Code Problem Atrial tachycardia I47.1 Active 564347045 Problem Iron deficiency anemia, unspecified iron deficiency anemia type D50.9 Active 72551569 Problem Anemia, unspecified type D64.9 Active 273289464 Problem Dysthymia F34.1 Active 49169124 ALLERGIES No Information ENCOUNTERS Encounter Location Date Diagnosis [facility] [address] [address] Apr, Acute bacterial conjunctivitis of left eye H10.32 and Allergic conjunctivitis of left eye H10.12 [place] [address] [address]679 March, [place] [address] [address] 57[address] March, [place] [address] 9[address]56- 3271 March, Atrial tachycardia I47.1 [facility] [address] [address]- 655[address] March, Palpitations R00.2 [facility] [address] [address]- [address] March, [facility] [address] [address]- [address]277 Jan, [place] [address] [address]- [address]12 Jan, [facility] [id number] [address] Jul, [facility] [id number] [place] [address] Jun, Acute right eye pain H57.11 [facility] [id number] [place] [address] 84317- 1243 Jun, Dysthymia F34.1 [facility] [id number] [place] [address] 42874- 1599 Apr, [place] [id number] [place] [address] 67212- 1700 Apr, Syncope, unspecified syncope type R55 [place] [id number] [place] [address] 16022- 4755 Apr, Iron deficiency anemia, unspecified iron deficiency anemia type D50.9 [place] [id number] [place] [address] 64222- 8651 Apr, [place] [id number] [place] [address] 63512- 5081 March, Anemia, unspecified type D64.9 [place] [id number] [place] [address] 93722- 8323 Jan, Acute non-recurrent maxillary sinusitis J01.00 [place] [id number] [place] [address] 68085- 6990 Jan, Lumbar strain, initial encounter S39.012A and Acute nasopharyngitis J00 [place] [address] [id number] [place] [address] 64227- 9936 Oct, Dysthymia F34.1 [facility] [id number] [place] [address] 28328- 0359 Aug, [place] [id number] [place] [address] 81646- 5693 Aug, [facility] [id number] [place] [address] 67840- 4582 28 Apr, 2016 Encounter for other administrative examinations Z02.89 [facility] [address] 400693- 7911 07 Apr, 2016 Dental examination Z01.20 [facility] [address] 46234- 9404 11 Dec, 2015 GERD (gastroesophageal reflux disease) K21.9 and Hypokalemia E87.6 [facility] [address] [address]21- 9731 Dec, [facility] [address] [address] Nov, Candidal vaginitis B37.3 ; Rash R21 ; History of nipple discharge Z87.898 and Dysuria R30.0 [facility] [address] 0[address]47- 4753 Sep, [facility] [address] [id number] Aug, Encounter for dental examination Z01.20 [facility] [id number] [place] [address] 95740- 0804 Aug, [facility] [id number] [place] [address] 91714- 2782 Jun, [facility] [address] 97901- 6835 Jun, Uterine enlargement 621.2 [facility] [address] 06516- 2657 Feb, [facility] [address] 61817- 7430 Feb, [facility] [address] 07911- 3353 Jan, [facility] [place] [facility] [address] [id number] [place] [address] 0237 Jan, [facility] [place] [facility] [address] [id number] [place] [address]- 4854 Nov, [facility] [place] [facility] [address] [id number] [place] [address]- 0558 Nov, [facility] [place] [facility] [address] [id number] [place] [address]- 6219 Oct, [facility] [place] [facility] [address] [id number] [place] [address]- 3225 Oct, [facility] [place] [facility] [address] [id number] [place] [address]- 8457 Oct, [facility] [place] [facility] [address] [id number] [place] [address]- 3431 Oct, [facility] [place] [facility] [address] [id number] [place] [address]- 4520 Oct, [facility] [place] [facility] [address] [id number] [place] [address]- 7286 Oct, [facility] [place] [facility] [address] [id number] [place] [address]- 0354 Sep, [facility] [place] [facility] [address] [id number] [place] [address]- 8384 Sep, [facility] [place] [facility] [address] [id number] [place] [address]- 6092 Sep, [facility] [place] [facility] [address] [id number] [place] [address]- 2450 Sep, [facility] [place] [facility] [address] [id number] [place] [address]- 7009 Sep, [facility] [place] [facility] [address] [id number] [place] [address]- 9396 Sep, [facility] [place] [facility] [address] [id number] [place] [address]- 1980 Sep, [facility] [place] [facility] [address] [id number] [place] [address]- 2410 Sep, [facility] [place] [facility] [address] [id number] [place] [address]- 6419 Jun, [facility] [place] [facility] [address] [id number] [place] [address]- 1981 Jun, [facility] [place] [facility] [address] [id number] [place] [address]- 3863 Jun, [facility] [place] [facility] [address] [id number] [place] [address]- 9126 March, [facility] [place] [facility] [address] [id number] [place] [address]- 5876 March, [facility] [place] [facility] [address] [id number] [place] [address]- 9192 Oct, [facility] [place] [facility] [address] [id number] [place] [address]- 7885 16 Oct, 2013 [facility] [place] [facility] [address] [id number] [place] [address]- 8695 Oct, [facility] [place] [facility] [address] [id number] [place] [address]- 7493 Oct, [facility] [place] [facility] [address] [id number] [address]- [address] 14 Aug, 2013 [facility] [place] [facility] [address] [id number] [address]- 8196 14 Aug, 2013 [facility] [place] [facility] [address] [id number] [place] [address]- 5955 Apr, [facility] [place] [facility] [address] [id number] [place] [address]- 2956 Apr, [facility] [place] [facility] [address] [id number] [place] [address]- 7426 Jan, [facility] [place] [facility] [address] [facility] [id number] [place] [address]- 8245 Jan, [facility] [address] [facility] [id number] [place] [address] Oct, IMMUNIZATIONS No Known Immunizations SOCIAL HISTORY Never Assessed REASON FOR VISIT PLAN OF CARE VITAL SIGNS MEDICATIONS No Known Medications RESULTS No Results PROCEDURES No Known procedures INSTRUCTIONS MEDICATIONS ADMINISTERED No Known Medications MEDICAL (GENERAL) HISTORY Type Description Date Medical History High Blood Pressure Medical History Heart Murmur Medical History Atrial Tachycardia Hospitalization History Cardiac related concerns but no diagnosis Hospitalization History Cardiac concerns 03/2018
--- OUTSIDE RECORDS SUMMARY | 2019-01-07 14:55 | XMS REPORT ---
Author Author RENETTA CARPIO Organization [facility] Address [address] [place] [address] Care Team Providers Care Manager Personnel Selection Name Role Phone RENETTA CARPIO Unavailable PROBLEMS Type Condition ICD9-CM Code XET37-YP Code Onset Dates Condition Status SNOMED Code Problem Atrial tachycardia I47.1 Active 339355647 Problem Iron deficiency anemia, unspecified iron deficiency anemia type D50.9 Active 64203176 Problem Anemia, unspecified type D64.9 Active 533582360 Problem Dysthymia F34.1 Active 01082600 ALLERGIES No Information ENCOUNTERS Encounter Location Date Diagnosis [facility] [address] [address] Apr, Acute bacterial conjunctivitis of left eye H10.32 and Allergic conjunctivitis of left eye H10.12 [place] [address] 87840- 9563 March, [place] [address] 58288- 3422 March, [place] [address] 34083- 6971 March, Atrial tachycardia I47.1 [facility] [address] [address]20- 4489 March, Palpitations R00.2 [facility] [address] 67[address]- 4236 March, [facility] [address] [address]- 5525 Jan, [place] [address] [address]- 9433 Jan, [facility] [address] [address] Jul, [facility] [id number] [place] [address]60 -0237 Jun, Acute right eye pain H57.11 [facility] [address] [place] [address] [id number] [place] [address] 48483- 2504 Jun, Dysthymia F34.1 [facility] [address] [place] [id number] [place] [address] 86880- 7168 Apr, [place] [address] [place] [id number] [place] [address] 75695- 4185 Apr, Syncope, unspecified syncope type R55 [place] [address] [place] [address] [id number] [place] [address] 55008- 0066 Apr, Iron deficiency anemia, unspecified iron deficiency anemia type D50.9 [place] [address] [id number] [place] [address] 03701- 1914 Apr, [place] [address] [place] [address] [id number] [place] [address] 60989- 8521 March, Anemia, unspecified type D64.9 [place] [address] [place] [id number] [place] [address] 97262- 6287 Jan, Acute non-recurrent maxillary sinusitis J01.00 [place] [address] [place] [id number] [place] [address] 92933- 0484 Jan, Lumbar strain, initial encounter S39.012A and Acute nasopharyngitis J00 [place] [address] [place] [id number] [place] [address] 46018- 4313 Oct, Dysthymia F34.1 [facility] [address] [place] [id number] [place] [address] 17269- 4296 Aug, [place] [address] [place] [id number] [place] [address] 23769- 6680 Aug, [facility] [id number] [place] [address] 73319- 4931 28 Apr, 2016 Encounter for other administrative examinations Z02.89 [facility] [address] 533692- 2393 07 Apr, 2016 Dental examination Z01.20 [facility] [address] 93878- 8195 11 Dec, 2015 GERD (gastroesophageal reflux disease) K21.9 and Hypokalemia E87.6 [facility] [address] 63042- 6772 Dec, [facility] [address] [address]357 Nov, Candidal vaginitis B37.3 ; Rash R21 ; History of nipple discharge Z87.898 and Dysuria R30.0 [facility] [address] 37868- 8801 Sep, [facility] [address] [id number] Aug, Encounter for dental examination Z01.20 [facility] [id number] [place] [address] 92555- 3392 Aug, [facility] [id number] [place] [address] 28717- 1092 Jun, [facility] [address] 39710- 1384 Jun, Uterine enlargement 621.2 [facility] [address] 37769- 6698 Feb, [facility] [address] 32336- 3391 Feb, [facility] [address] 60842- 8510 Jan, [facility] [place] [facility] [address] [id number] [place] [address]- 8053 Jan, [facility] [place] [facility] [address] [id number] [place] [address]- 6434 Nov, [facility] [place] [facility] [address] [id number] [place] [address]- 5310 Nov, [facility] [place] [facility] [address] [id number] [place] [address]- 5233 Oct, [facility] [place] [facility] [address] [id number] [place] [address]- 1375 Oct, [facility] [place] [facility] [address] [id number] [place] [address]- 6068 Oct, [facility] [place] [facility] [address] [id number] [place] [address]- 7921 Oct, [facility] [place] [facility] [address] [id number] [place] [address]- 8036 Oct, [facility] [place] [facility] [address] [id number] [place] [address]- 2728 Oct, [facility] [place] [facility] [address] [id number] [place] [address]- 1814 Sep, [facility] [place] [facility] [address] [id number] [place] [address]- 0334 Sep, [facility] [place] [facility] [address] [id number] [place] [address]- 7413 Sep, [facility] [place] [facility] [address] [id number] [place] [address]- 9309 Sep, [facility] [place] [facility] [address] [id number] [place] [address]- 7483 Sep, [facility] [place] [facility] [address] [id number] [place] [address]- 8805 Sep, [facility] [place] [facility] [address] [id number] [place] [address]- 3980 Sep, [facility] [place] [facility] [address] [id number] [place] [address]- 8934 Sep, [facility] [place] [facility] [address] [id number] [place] [address]- 5906 Jun, [facility] [place] [facility] [address] [id number] [place] [address]- 4579 Jun, [facility] [place] [facility] [address] [id number] [place] [address]- 2370 Jun, [facility] [place] [facility] [address] [id number] [place] [address]- 3894 March, [facility] [place] [facility] [address] [id number] [place] [address]- 3947 March, [facility] [place] [facility] [address] [id number] [place] [address]- 1747 Oct, [facility] [place] [facility] [address] [id number] [place] [address]- 0351 16 Oct, 2013 [facility] [place] [facility] [address] [id number] [place] [address]- 7270 Oct, [facility] [place] [facility] [address] [id number] [place] [address]- 5885 Oct, [facility] [place] [facility] [address] [id number] [address]- 2243 14 Aug, 2013 [facility] [place] [facility] [address] [id number] [address]- 2744 14 Aug, 2013 [facility] [place] [facility] [address] [id number] [place] [address]- 5952 Apr, [facility] [place] [facility] [address] [id number] [place] [address]- 8639 Apr, [facility] [place] [facility] [address] [id number] [place] [address]- 8673 Jan, [facility] [place] [facility] [address] [facility] [id number] [place] [address]- 9921 Jan, [facility] [address] [facility] [id number] [place] [address]286 Oct, IMMUNIZATIONS No Known Immunizations SOCIAL HISTORY Never Assessed REASON FOR VISIT requesting referral PLAN OF CARE VITAL SIGNS MEDICATIONS No Known Medications RESULTS No Results PROCEDURES No Known procedures INSTRUCTIONS MEDICATIONS ADMINISTERED No Known Medications MEDICAL (GENERAL) HISTORY Type Description Date Medical History High Blood Pressure Medical History Heart Murmur Medical History Atrial Tachycardia Hospitalization History Cardiac related concerns but no diagnosis Hospitalization History Cardiac concerns 03/2018
--- OUTSIDE RECORDS SUMMARY | 2019-01-07 14:55 | XMS REPORT ---
Author Author SABRINA ARNOLD Organization [facility] Address [address] [place] [address] Care Team Providers Care Leather Craftsman Name Role Phone SABRINA ARNLOD Unavailable PROBLEMS Type Condition ICD9-CM Code GUI13-XC Code Onset Dates Condition Status SNOMED Code Problem Atrial tachycardia I47.1 Active 464244424 Problem Iron deficiency anemia, unspecified iron deficiency anemia type D50.9 Active 53200275 Problem Anemia, unspecified type D64.9 Active 002139317 Problem Dysthymia F34.1 Active 61615839 ALLERGIES No Information ENCOUNTERS Encounter Location Date Diagnosis [facility] [address] [address] Apr, Acute bacterial conjunctivitis of left eye H10.32 and Allergic conjunctivitis of left eye H10.12 [place] [address] [address] March, [place] [address] [address]- [address] March, [place] [address] [address] March, Atrial tachycardia I47.1 [facility] [address] 17[address]- 2258 March, Palpitations R00.2 [facility] [address] [address]- 8[address] March, [facility] [address] [address]- [address] Jan, [place] [address] [address]- 137[address] Jan, [facility] [address] [address] Jul, [facility] [address] [place] [id number] [place] [address]89 Jun, Acute right eye pain H57.11 [facility] [address] [place] [id number] [place] [address] 67623- 9671 Jun, Dysthymia F34.1 [facility] [address] [place] [id number] [place] [address] 03301- 4756 Apr, [place] [address] [place] [id number] [place] [address] 70363- 1375 Apr, Syncope, unspecified syncope type R55 [place] [address] [place] [id number] [place] [address] 52275- 3391 Apr, Iron deficiency anemia, unspecified iron deficiency anemia type D50.9 [place] [address] [place] [address] [id number] [place] [address] 62785- 2385 Apr, [place] [address] [place] [id number] [place] [address] 29449- 9902 March, Anemia, unspecified type D64.9 [place] [address] [place] [id number] [place] [address] 43555- 8356 Jan, Acute non-recurrent maxillary sinusitis J01.00 [place] [address] [place] [id number] [place] [address] 00342- 4457 Jan, Lumbar strain, initial encounter S39.012A and Acute nasopharyngitis J00 [place] [address] [place] [id number] [place] [address] 70230- 1037 Oct, Dysthymia F34.1 [facility] [address] [id number] [place] [address] 18910- 6786 Aug, [place] [address] [place] [id number] [place] [address] 35879- 7669 Aug, [facility] [id number] [place] [address] 94382- 6475 28 Apr, 2016 Encounter for other administrative examinations Z02.89 [facility] [address] 950134- 0378 07 Apr, 2016 Dental examination Z01.20 [facility] [address] 36733- 8485 11 Dec, 2015 GERD (gastroesophageal reflux disease) K21.9 and Hypokalemia E87.6 [facility] [address] 25361- 0447 Dec, [facility] [address] [address] Nov, Candidal vaginitis B37.3 ; Rash R21 ; History of nipple discharge Z87.898 and Dysuria R30.0 [facility] [address] 61816- 9454 Sep, [facility] [address] [id number] Aug, Encounter for dental examination Z01.20 [facility] [address] [place] [id number] [place] [address] 95063- 9862 Aug, [facility] [address] [place] [id number] [place] [address] 51551- 6787 Jun, [facility] [address] 22100- 7213 Jun, Uterine enlargement 621.2 [facility] [address] 64329- 3812 Feb, [facility] [address] 21363- 0768 Feb, [facility] [address] [address]- 3036 Jan, [facility] [place] [facility] [address] [id number] [place] [address]- 2984 Jan, [facility] [place] [facility] [address] [id number] [place] [address]- 6601 Nov, [facility] [place] [facility] [address] [id number] [place] [address]- 4670 Nov, [facility] [place] [facility] [address] [id number] [place] [address]- 7897 Oct, [facility] [place] [facility] [address] [id number] [place] [address]- 2319 Oct, [facility] [place] [facility] [address] [id number] [place] [address]- 6430 Oct, [facility] [place] [facility] [address] [id number] [place] [address]- 3969 Oct, [facility] [place] [facility] [address] [id number] [place] [address]- 2062 Oct, [facility] [place] [facility] [address] [id number] [place] [address]- 4179 Oct, [facility] [place] [facility] [address] [id number] [place] [address]- 0074 Sep, [facility] [place] [facility] [address] [id number] [place] [address]- 0759 Sep, [facility] [place] [facility] [address] [id number] [place] [address]- 0580 Sep, [facility] [place] [facility] [address] [id number] [place] [address]- 3817 Sep, [facility] [place] [facility] [address] [id number] [place] [address]- 1712 Sep, [facility] [place] [facility] [address] [id number] [place] [address]- 0219 Sep, [facility] [place] [facility] [address] [id number] [place] [address]- 3717 Sep, [facility] [place] [facility] [address] [id number] [place] [address]- 5854 Sep, [facility] [place] [facility] [address] [id number] [place] [address]- 4840 Jun, [facility] [place] [facility] [address] [id number] [place] [address]- 0549 Jun, [facility] [place] [facility] [address] [id number] [place] [address]- 2832 Jun, [facility] [place] [facility] [address] [id number] [place] [address]- 4480 March, [facility] [place] [facility] [address] [id number] [place] [address]- 7055 March, [facility] [place] [facility] [address] [id number] [place] [address]- 7116 Oct, [facility] [place] [facility] [address] [id number] [place] [address]- 7517 16 Oct, 2013 [facility] [place] [facility] [address] [id number] [place] [address]- 1289 Oct, [facility] [place] [facility] [address] [id number] [place] [address]- 4856 Oct, [facility] [place] [facility] [address] [id number] [place] [address]- 3927 14 Aug, 2013 [facility] [place] [facility] [address] [id number] [address]- 0494 14 Aug, 2013 [facility] [place] [facility] [address] [id number] [place] [address]- 4927 Apr, [facility] [place] [facility] [address] [id number] [place] [address]- 1666 Apr, [facility] [place] [facility] [address] [id number] [place] [address]- 8142 Jan, [facility] [place] [facility] [address] [facility] [id number] [place] [address] Jan, [facility] [address] [facility] [id number] [place] [address]- 7150 Oct, IMMUNIZATIONS No Known Immunizations SOCIAL HISTORY Never Assessed REASON FOR VISIT Holter PLAN OF CARE VITAL SIGNS MEDICATIONS No Known Medications RESULTS No Results PROCEDURES No Known procedures INSTRUCTIONS MEDICATIONS ADMINISTERED No Known Medications MEDICAL (GENERAL) HISTORY Type Description Date Medical History High Blood Pressure Medical History Heart Murmur Medical History Atrial Tachycardia Hospitalization History Cardiac related concerns but no diagnosis Hospitalization History Cardiac concerns 03/2018
--- OUTSIDE RECORDS SUMMARY | 2019-01-07 14:55 | XMS REPORT ---
Author Author RENETTA CARPIO [facility] Address [address] [place] [address] Care Team Providers Care Change Of Address Clerk Name Role Phone RENETTA CARPIO Unavailable PROBLEMS Type Condition ICD9-CM Code RIA11-UV Code Onset Dates Condition Status SNOMED Code Problem Atrial tachycardia I47.1 Active 723229773 Problem Iron deficiency anemia, unspecified iron deficiency anemia type D50.9 Active 16432738 Problem Anemia, unspecified type D64.9 Active 635137177 Problem Dysthymia F34.1 Active 21485811 ALLERGIES Substance Reaction Event Type Date Status Morphine Sulfate rash Drug Allergy March, Active ENCOUNTERS Encounter Location Date Diagnosis [facility] [address] [address] Apr, Acute bacterial conjunctivitis of left eye H10.32 and Allergic conjunctivitis of left eye H10.12 [facility] [address] [address]- 2709 March, [facility] [address] [address]- 0632 March, [facility] [address] [address]656- 1290 March, Atrial tachycardia I47.1 [facility] [address] 68923- 9512 March, Palpitations R00.2 [facility] [address] 13639- 4019 March, [facility] [address] 96086- 0360 Jan, [facility] [address] 05454- 3854 Jan, [facility] [id number] [place] [address] 06244- 4789 Jul, [facility] [address] [place] [address] [id number] [place] [address] 020803 -4591 Jun, Acute right eye pain H57.11 [place] [address] [place] [id number] [place] [address] 32450- 2832 Jun, Dysthymia F34.1 [place] [address] [place] [id number] [place] [address] 64517- 1435 Apr, [place] [address] [place] [id number] [place] [address] 40179- 1324 Apr, Syncope, unspecified syncope type R55 [place] [address] [place] [id number] [place] [address] 35628- 8934 Apr, Iron deficiency anemia, unspecified iron deficiency anemia type D50.9 [place] [address] [place] [id number] [place] [address] 31888- 2515 Apr, [place] [address] [place] [id number] [place] [address] 14109- 2043 March, Anemia, unspecified type D64.9 [place] [address] [place] [id number] [place] [address] 43281- 3427 Jan, Acute non-recurrent maxillary sinusitis J01.00 [place] [address] [place] [id number] [place] [address] 85722- 7695 Jan, Lumbar strain, initial encounter S39.012A and Acute nasopharyngitis J00 [place] [address] [place] [id number] [place] [address] 72091- 4365 Oct, Dysthymia F34.1 [place] [address] [place] [id number] [place] [address] 88915- 9365 Aug, [place] [address] [place] [id number] [place] [address] 29825- 4287 03 Aug, 2016 [facility] [address] [id number] [place] [address] 58202- 2415 28 Apr, 2016 Encounter for other administrative examinations Z02.89 [facility] [address] [address]- 5136 07 Apr, 2016 Dental examination Z01.20 [facility] [address] 53921- 4057 11 Dec, 2015 GERD (gastroesophageal reflux disease) K21.9 and Hypokalemia E87.6 [facility] [address] 65938- 0052 09 Dec, 2015 [facility] [address] [address] -3547 28 Nov, 2015 Candidal vaginitis B37.3 ; Rash R21 ; History of nipple discharge Z87.898 and Dysuria R30.0 [facility] [address] 36832- 2554 06 Sep, 2015 [facility] [address] [id number] Aug, 2015 Encounter for dental examination Z01.20 [facility] [address] 25164- 6696 13 Aug, 2015 [facility] [address] [address]17- 1963 Jun, [facility] [address] 01494- 3806 Jun, Uterine enlargement 621.2 [facility] [address] 51154- 2155 14 Feb, 2015 [facility] [address] 48872- 0067 13 Feb, 2015 [facility] [address] 57884- 5596 Jan, [facility] [place] [facility] [address] [id number] [place] [address]- 4433 Jan, [facility] [place] [facility] [address] [id number] [place] [address]- 0566 Nov, [facility] [place] [facility] [address] [id number] [place] [address]- 1076 Nov, [facility] [place] [facility] [address] [id number] [place] [address]- 2364 Oct, [facility] [place] [facility] [address] [id number] [place] [address]- 6495 Oct, [facility] [place] [facility] [address] [id number] [place] [address]- 2782 Oct, [facility] [place] [facility] [address] [id number] [place] [address]- 2274 Oct, [facility] [place] [facility] [address] [id number] [place] [address]- 6725 Oct, [facility] [place] [facility] [address] [id number] [place] [address]- 5160 Oct, [facility] [place] [facility] [address] [id number] [place] [address]- 1055 Sep, [facility] [place] [facility] [address] [id number] [address]- 2240 Sep, [facility] [place] [facility] [address] [id number] [place] [address]- 0496 Sep, [facility] [place] [facility] [address] [id number] [place] [address]- 8279 Sep, [facility] [place] [facility] [address] [id number] [place] [address]- 4869 Sep, [facility] [place] [facility] [address] [id number] [place] [address]- 0948 Sep, [facility] [place] [facility] [address] [id number] [place] [address]- 0607 Sep, [facility] [address] [id number] [place] [address]- 1253 Sep, [facility] [place] [facility] [address] [id number] [place] [address]- 5399 Jun, [facility] [address] [id number] [place] [address]- 8244 Jun, [facility] [place] [facility] [address] [id number] [place] [address]- 1259 Jun, [facility] [address] [id number] [place] [address]- 2813 March, [facility] [address] [id number] [place] [address]- 9354 March, [facility] [address] [id number] [place] [address]- 2876 Oct, [facility] [address] [id number] [place] [address]- 6055 16 Oct, 2013 [facility] [address] [id number] [place] [address]- 7200 Oct, [facility] [address] [facility] [id number] [place] [address]- 6574 Oct, [facility] [place] [facility] [address] [id number] [place] [address]- 9015 14 Aug, 2013 [facility] [place] [facility] [address] [id number] [place] [address]- 7815 Aug, [facility] [place] [facility] [address] [id number] [place] [address]- 3858 Apr, [facility] [place] [facility] [address] [id number] [place] [address]- 0330 Apr, [facility] [place] [facility] [address] [id number] [place] [address]- 0665 Jan, [facility] [address] [facility] [id number] [place] [address]- 1762 Jan, [facility] [address] [facility] [id number] [place] [address]- 1714 Oct, IMMUNIZATIONS No Known Immunizations SOCIAL HISTORY Never Assessed REASON FOR VISIT 03/29/18 ER Ran testing and had heart monitor implanted at 11:30 this morning -WI PLAN OF CARE Activity Details Follow Up Will call after tests Reason: VITAL SIGNS Height 67 in 2018-04-05 Weight 206.6 lbs 2018-04-05 Temperature 97 degrees Fahrenheit 2018-04-05 Heart Rate 72 bpm 2018-04-05 Respiratory Rate 18 2018-04-05 Oximetry on room air:98 % 2018-04-05 BMI 32.35 kg/m2 2018-04-05 Blood pressure systolic 132 mmHg 2018-04-05 Blood pressure diastolic 86 mmHg 2018-04-05 MEDICATIONS Medication Instructions Dosage Frequency Start Date End Date Duration Status Paxil 40 mg Orally Once a day 1 tablet in the morning 24h 90 Active RESULTS No Results PROCEDURES Procedure Date Ordered Result Body Site ASSAY THYROID STIM HORMONE April 05, 2018 VENIPUNCT, ROUTINE* April 05, 2018 INSTRUCTIONS MEDICATIONS ADMINISTERED No Known Medications MEDICAL (GENERAL) HISTORY Type Description Date Medical History High Blood Pressure Medical History Heart Murmur Medical History Atrial Tachycardia Hospitalization History Cardiac related concerns but no diagnosis Hospitalization History Cardiac concerns 03/2018
--- OUTSIDE RECORDS SUMMARY | 2019-01-07 14:55 | XMS REPORT ---
Author Author RENETTA CARPIO Organization [facility] Address [address] [place] [address] Care Team Providers Care Personal Protection Specialist Name Role Phone RENETTA CARPIO Unavailable PROBLEMS Type Condition ICD9-CM Code [id number] Code Onset Dates Condition Status SNOMED Code Problem Atrial tachycardia I47.1 Active 831942721 Problem Iron deficiency anemia, unspecified iron deficiency anemia type D50.9 Active 15740710 Problem Anemia, unspecified type D64.9 Active 603141750 Problem Dysthymia F34.1 Active 93164983 ALLERGIES No Information ENCOUNTERS Encounter Location Date Diagnosis [facility] [address] [address] Apr, Acute bacterial conjunctivitis of left eye H10.32 and Allergic conjunctivitis of left eye H10.12 [place] [address] [address] March, [place] [address] [address] March, [place] [address] 859[address] 9498 March, Atrial tachycardia I47.1 [facility] [address] [address]- [address] March, Palpitations R00.2 [facility] [address] [address]- [address] March, [facility] [address] [address] Jan, [place] [address] [address]- 5211 Jan, [facility] [address], [place] [address] Jul, [facility] [address] [place] [id number] [place] [address]69 Jun, Acute right eye pain H57.11 [facility] [address] [place] [id number] [place] [address] 51561- 2392 Jun, Dysthymia F34.1 [facility] [address] [place] [id number] [place] [address] 82676- 3419 Apr, [place] [address] [place] [id number] [place] [address] 75327- 7003 Apr, Syncope, unspecified syncope type R55 [place] [address] [place] [id number] [place] [address] 72615- 1105 Apr, Iron deficiency anemia, unspecified iron deficiency anemia type D50.9 [place] [address] [place] [id number] [place] [address] 83633- 3505 Apr, [place] [address] [place] [id number] [place] [address] 04115- 1661 March, Anemia, unspecified type D64.9 [place] [address] [place] [id number] [place] [address] 61931- 1483 Jan, Acute non-recurrent maxillary sinusitis J01.00 [place] [address] [place] [id number] [place] [address] 36334- 3035 Jan, Lumbar strain, initial encounter S39.012A and Acute nasopharyngitis J00 [place] [address] [place] [id number] [place] [address] 85156- 0972 Oct, Dysthymia F34.1 [facility] [address] [place] [id number] [place] [address] 46908- 7056 Aug, [place] [address] [place] [id number] [place] [address] 98230- 4686 Aug, [facility] [address] [place] [address] [id number] [place] [address] 64540- 5044 28 Apr, 2016 Encounter for other administrative examinations Z02.89 [facility] [address] 397161- 8329 07 Apr, 2016 Dental examination Z01.20 [facility] [address] 99857- 5979 11 Dec, 2015 GERD (gastroesophageal reflux disease) K21.9 and Hypokalemia E87.6 [facility] [address] 06166- 3947 Dec, [facility] [address] [address] Nov, Candidal vaginitis B37.3 ; Rash R21 ; History of nipple discharge Z87.898 and Dysuria R30.0 [facility] [address] 07756- 4049 Sep, [facility] [address] [id number] Aug, Encounter for dental examination Z01.20 [facility] [address] [place] [address] [id number] [place] [address] 62131- 3565 Aug, [facility] [address] [place] [id number] [place] [address] 10656- 9040 Jun, [facility] [address] 11042- 8794 Jun, Uterine enlargement 621.2 [facility] [address] 28224- 8949 Feb, [facility] [address] 44772- 1050 Feb, [facility] [address] 10902- 0295 Jan, [facility] [place] [facility] [address] [id number] [place] [address]- 1232 Jan, [facility] [place] [facility] [address] [id number] [place] [address]- 9976 Nov, [facility] [place] [facility] [address] [id number] [place] [address]- 3707 Nov, [facility] [place] [facility] [address] [id number] [place] [address]- 0613 Oct, [facility] [place] [facility] [address] [id number] [place] [address]- 0645 Oct, [facility] [place] [facility] [address] [id number] [place] [address]- 9704 Oct, [facility] [place] [facility] [address] [id number] [place] [address]- 6242 Oct, [facility] [place] [facility] [address] [id number] [place] [address]- 0790 Oct, [facility] [place] [facility] [address] [id number] [place] [address]- 7730 Oct, [facility] [place] [facility] [address] [id number] [place] [address]- 0479 Sep, [facility] [place] [facility] [address] [id number] [place] [address]- 2532 Sep, [facility] [place] [facility] [address] [id number] [place] [address]- 0325 Sep, [facility] [place] [facility] [address] [id number] [place] [address]- 8397 Sep, [facility] [place] [facility] [address] [id number] [place] [address]- 3635 Sep, [facility] [place] [facility] [address] [id number] [place] [address]- 9022 Sep, [facility] [place] [facility] [address] [id number] [place] [address]- 6152 Sep, [facility] [place] [facility] [address] [id number] [place] [address]- 1879 Sep, [facility] [place] [facility] [address] [id number] [place] [address]- 4718 Jun, [facility] [place] [facility] [address] [id number] [place] [address]- 7573 Jun, [facility] [place] [facility] [address] [id number] [place] [address]- 9832 Jun, [facility] [place] [facility] [address] [id number] [place] [address]- 5329 March, [facility] [place] [facility] [address] [id number] [place] [address]- 6578 March, [facility] [place] [facility] [address] [id number] [place] [address]- 5891 Oct, [facility] [place] [facility] [address] [id number] [place] [address]- 2806 16 Oct, 2013 [facility] [place] [facility] [address] [id number] [place] [address]- 8407 Oct, [facility] [place] [facility] [address] [id number] [place] [address]- 1483 Oct, [facility] [place] [facility] [address] [id number], [place] [address]- 9713 14 Aug, 2013 [facility] [place] [facility] [address] [id number], [place] [address]- 2844 14 Aug, 2013 [facility] [place] [facility] [address] [id number] [place] [address]- 7200 Apr, [facility] [place] [facility] [address] [id number] [place] [address]- 7391 Apr, [facility] [place] [facility] [address] [id number] [place] [address]- 0069 Jan, [facility] [place] [facility] [address] [facility] [id number] [place] [address]- 2026 Jan, [facility] [address] [facility] [id number] [place] [address]- 0096 Oct, IMMUNIZATIONS No Known Immunizations SOCIAL HISTORY Never Assessed REASON FOR VISIT Triage- wants lab results , Pt states she feels like her ''A-fib is acting up'' States she felt like something slammed her chest and then was very dizzy. states she just does not feel well, sent pt to ER. Called Dr Florez to notify. Pt asked that I call her Fiance as well and tell him what is going on- James Giron RN PLAN OF CARE VITAL SIGNS MEDICATIONS No Known Medications RESULTS No Results PROCEDURES No Known procedures INSTRUCTIONS MEDICATIONS ADMINISTERED No Known Medications MEDICAL (GENERAL) HISTORY Type Description Date Medical History High Blood Pressure Medical History Heart Murmur Medical History Atrial Tachycardia Hospitalization History Cardiac related concerns but no diagnosis Hospitalization History Cardiac concerns 03/2018
--- OUTSIDE RECORDS SUMMARY | 2019-01-07 14:56 | XMS REPORT ---
Author Author RENETTA CARPIO Organization [facility] Address [address] [place] [address] Care Team Providers Care Rn Clinical Quality Name Role Phone RENETTA CARPIO Unavailable PROBLEMS Type Condition ICD9-CM Code JTT41-EO Code Onset Dates Condition Status SNOMED Code Problem Atrial tachycardia I47.1 Active 110753225 Problem Iron deficiency anemia, unspecified iron deficiency anemia type D50.9 Active 38103568 Problem Anemia, unspecified type D64.9 Active 593476935 Problem Dysthymia F34.1 Active 97873408 ALLERGIES No Information ENCOUNTERS Encounter Location Date Diagnosis [facility] [address] [address] Apr, Acute bacterial conjunctivitis of left eye H10.32 and Allergic conjunctivitis of left eye H10.12 [place] [address] [address]- 4881 March, [place] [address] [address]77- 1225 March, [place] [address] 54786- 9072 March, Atrial tachycardia I47.1 [facility] [address] 92388- 0043 March, Palpitations R00.2 [facility] [address] 03427- 3365 March, [facility] [address] 61192- 1254 Jan, [place] [address] 33790- 4131 Jan, [facility] [address], [place] [address]- 8997 Jul, [facility] [address] [place] [id number] [place] [address]34 [address]2623 Jun, Acute right eye pain H57.11 [facility] [address] [place] [id number] [place] [address] 69170- 0914 Jun, Dysthymia F34.1 [facility] [address] [place] [id number] [place] [address] 58772- 7110 Apr, [place] [address] [place] [id number] [place] [address] 73651- 2632 Apr, Syncope, unspecified syncope type R55 [place] [address] [place] [id number] [place] [address] 01385- 8665 Apr, Iron deficiency anemia, unspecified iron deficiency anemia type D50.9 [place] [address] [place] [id number] [place] [address] 27129- 6978 Apr, [place] [address] [place] [id number] [place] [address] 44256- 3675 March, Anemia, unspecified type D64.9 [place] [address] [place] [id number] [place] [address] 05148- 6081 Jan, Acute non-recurrent maxillary sinusitis J01.00 [place] [address] [place] [id number] [place] [address] 81749- 4930 Jan, Lumbar strain, initial encounter S39.012A and Acute nasopharyngitis J00 [place] [address] [place] [id number] [place] [address] 96613- 9389 Oct, Dysthymia F34.1 [facility] [address] [place] [id number] [place] [address] 81039- 4991 Aug, [place] [address] [place] [id number] [place] [address] 53969- 8273 Aug, [facility] [address] [place] [id number] [place] [address] 93506- 5049 28 Apr, 2016 Encounter for other administrative examinations Z02.89 [facility] [address] 627711- 3871 07 Apr, 2016 Dental examination Z01.20 [facility] [address] 88449- 9249 11 Dec, 2015 GERD (gastroesophageal reflux disease) K21.9 and Hypokalemia E87.6 [facility] [address] 64773- 7156 Dec, [facility] [address] [address]004 Nov, Candidal vaginitis B37.3 ; Rash R21 ; History of nipple discharge Z87.898 and Dysuria R30.0 [facility] [address] 24384- 1199 Sep, [facility] [address] [id number] Aug, Encounter for dental examination Z01.20 [facility] [address] [place] [id number] [place] [address] 31203- 7001 Aug, [facility] [address] [place] [id number] [place] [address] 07394- 8713 Jun, [facility] [address] 43040- 3734 Jun, Uterine enlargement 621.2 [facility] [address] 11960- 1000 Feb, [facility] [address] 92878- 4026 Feb, [facility] [address] 72595- 9168 Jan, [facility] [place] [facility] [address] [id number] [place] [address]- 4241 Jan, [facility] [place] [facility] [address] [id number] [place] [address]- 5507 Nov, [facility] [place] [facility] [address] [id number] [place] [address]- 9077 Nov, [facility] [place] [facility] [address] [id number] [place] [address]- 5436 Oct, [facility] [place] [facility] [address] [id number] [place] [address]- 8485 Oct, [facility] [place] [facility] [address] [id number] [place] [address]- 9905 Oct, [facility] [place] [facility] [address] [id number] [place] [address]- 1504 Oct, [facility] [place] [facility] [address] [id number] [place] [address]- 7126 Oct, [facility] [place] [facility] [address] [id number] [place] [address]- 8326 Oct, [facility] [place] [facility] [address] [id number] [place] [address]- 5990 Sep, [facility] [place] [facility] [address] [id number] [place] [address]- 6189 Sep, [facility] [place] [facility] [address] [id number] [place] [address]- 0829 Sep, [facility] [place] [facility] [address] [id number] [place] [address]- 0632 Sep, [facility] [place] [facility] [address] [id number] [place] [address]- 9381 Sep, [facility] [place] [facility] [address] [id number] [place] [address]- 8114 Sep, [facility] [place] [facility] [address] [id number] [place] [address]- 4707 Sep, [facility] [place] [facility] [address] [id number] [place] [address]- 0471 Sep, [facility] [place] [facility] [address] [id number] [place] [address]- 8449 Jun, [facility] [place] [facility] [address] [id number] [place] [address]- 8174 Jun, [facility] [place] [facility] [address] [id number] [place] [address]- 8654 Jun, [facility] [place] [facility] [address] [id number] [place] [address]- 0453 March, [facility] [place] [facility] [address] [id number] [place] [address]- 0871 March, [facility] [place] [facility] [address] [id number] [place] [address]- 5999 Oct, [facility] [place] [facility] [address] [id number] [place] [address]- 6618 16 Oct, 2013 [facility] [place] [facility] [address] [id number] [place] [address]- 0022 Oct, [facility] [place] [facility] [address] [id number] [place] [address]- 1930 Oct, [facility] [place] [facility] [address] [id number], [place] [address]- 6740 14 Aug, 2013 [facility] [place] [facility] [address] [id number], [place] [address]- 7877 14 Aug, 2013 [facility] [place] [facility] [address] [id number] [place] [address]- 3517 Apr, [facility] [place] [facility] [address] [id number] [place] [address]- 6342 Apr, [facility] [place] [facility] [address] [id number] [place] [address]- 2234 Jan, [facility] [place] [facility] [address] [facility] [id number] [place] [address]- 6168 Jan, [facility] [address] [facility] [id number] [place] [address] Oct, IMMUNIZATIONS No Known Immunizations SOCIAL HISTORY Never Assessed REASON FOR VISIT Refill request PLAN OF CARE VITAL SIGNS MEDICATIONS No Known Medications RESULTS No Results PROCEDURES No Known procedures INSTRUCTIONS MEDICATIONS ADMINISTERED No Known Medications MEDICAL (GENERAL) HISTORY Type Description Date Medical History High Blood Pressure Medical History Heart Murmur Medical History Atrial Tachycardia Hospitalization History Cardiac related concerns but no diagnosis Hospitalization History Cardiac concerns 03/2018
[2019-01-07 14:57] LABS: BASOPHILS # (AUTO) 0.1 10^3/uL (0.0-0.1); BASOPHILS % (AUTO) 1 % (0-10); EOSINOPHILS # (AUTO) 0.4 10^3/uL (0.0-0.3); EOSINOPHILS % (AUTO) 5 % (0-10); HEMATOCRIT 39 % (35-52); HEMOGLOBIN 12.2 G/DL (11.5-16.0); LYMPHOCYTES # (AUTO) 2.6 X 10^3 (1.0-4.0); LYMPHOCYTES % (AUTO) 35 % (12-44); MEAN CORPUSCULAR HEMOGLOBIN 25 PG (25-34); MEAN CORPUSCULAR HGB CONC 31 G/DL (32-36); MEAN CORPUSCULAR VOLUME 79 FL (80-99); MEAN PLATELET VOLUME 10.6 FL (7.4-10.4); MONOCYTES # (AUTO) 0.3 X 10^3 (0.0-1.0); MONOCYTES % (AUTO) 5 % (0-12); NEUTROPHILS % (AUTO) 55 % (42-75); PLATELET COUNT 290 10^3/uL (130-400); RED CELL DISTRIBUTION WIDTH 18.9 % (10.0-14.5); WHITE BLOOD COUNT 7.4 10^3/uL (4.3-11.0)
--- OUTSIDE RECORDS SUMMARY | 2019-01-07 15:03 | XMS REPORT | Continuity of Care Document ---
Author Author [facility] Address Unknown Phone Unavailable Allergies Active Description Code Type Severity Reaction Onset Reported/Identified Relationship to Patient Clinical Status Yes NKANo Known Allergies NKA Miscellaneous Allergy Mild N/A 03/19/2017 Yes morphine [id number] Drug Allergy Unknown N/A 04/27/2017 Medications There [...] MD 401.1 HYPERTENSION, BENIGN ESSENTIAL 02/17/2010 [facility], VLADISLAV A 307.81 HEADACHE, TENSION 02/17/2010 [facility], VLDAISLAV A 311 DEPRESSIVE DISORDER NOS 02/17/2010 [facility], VLADISLAV A 401.1 HYPERTENSION, BENIGN ESSENTIAL 02/17/2010 [facility], VLADISLAV A 307.81 HEADACHE, TENSION 02/17/2010 [facility], VLADISLAV A 311 DEPRESSIVE DISORDER NOS 02/17/2010 [facility], VLADISLAV A 401.1 HYPERTENSION, BENIGN ESSENTIAL 02/17/2010 [facility], VLADISLAV A 307.81 HEADACHE, TENSION 02/17/2010 [facility], VLADISLAV A 311 DEPRESSIVE DISORDER NOS 02/17/2010 [facility], VLADISLAV A 401.1 HYPERTENSION, BENIGN ESSENTIAL 07/02/2011 [...] MASTODYNIA 10/15/2014 GRAC[facility]A ELSIE VLADISLAV A V72.31 OUTBOUND SALES EXECUTIVE EXAM, ROUTINE 10/15/2014 [facility]LADISLAV Elise A V73.81 HPV SCREENING 10/15/2014 GRACIELA MOTLEYArik VLADISLAV A V74.5 STD SCREEN 10/15/2014 GRACIELA MOTLEYArik VLADISLAV A V76.10 BREAST CANCER SCREENING 10/15/2014 GRACIELAVLADISLAV Elise APRN A V76.2 CERVICAL CANCER SCREENING (PAP SMEAR) 10/15/2014 GRACIELA MOTLEYArik VLADISLAV A 611.6 GALACTORRHEA NOT ASSOCIATED WITH CHILDBIRTH 10/15/2014 GRACIELAVLADISLAV Elise APRN A 611.71 MASTODYNIA 10/15/2014 GRACIELAVLADISLAV Elise APRN A V72.31 OUTBOUND SALES EXECUTIVE EXAM, ROUTINE 10/15/2014 [facility] CONSULTANT[facility]ADISLAV Elise A V73.81 HPV SCREENING 10/15/2014 GRACIELAVLADISLAV Elise APRN A V74.5 STD SCREEN 10/15/2014 GRACIELAVLADISLAV Elise APRN A V76.10 BREAST CANCER SCREENING 10/15/2014 [facility], VLADISLAV A V76.2 CERVICAL CANCER SCREENING (PAP SMEAR) 10/15/2014 GRACIELAArik ZIMMERMAN VLADISLAV A 611.6 GALACTORRHEA NOT ASSOCIATED WITH CHILDBIRTH 10/15/2014 [facility] CONSULTANT[facility]ADISLAV Elise A 611.71 MASTODYNIA 10/15/2014 GRACIELAArik ZIMMERMAN VLADISLAV A V72.31 OUTBOUND SALES EXECUTIVE EXAM, ROUTINE 10/15/2014 GRACIELAVLADISLAV Elise APRN A [...] APRN Ot 611.6 10/26/2014 GRAC[facility]A VLADISLAV A [facility] Ot 729.5 10/26/2014 GRAC[facility]A VLADISLAV A [facility] Ot 729.81 02/28/2015 [facility] Ot 599.0 URIN TRACT INFECTION NOS 02/28/2015 [facility] Ot 780.4 DIZZINESS AND GIDDINESS 02/28/2015 Ot 611.72 02/28/2015 Ot V16.3 02/28/2015 VLADISLAV OWENS A [facility] Ot 611.6 02/28/2015 GRACIELA VLADISLAV A [facility] Ot 729.5 02/28/2015 VLADISLAV OWENS A [facility] Ot 729.81 03/15/2015 VLADISLAV OWENS APRN 112.3 CANDIDIASIS OF SKIN AND NAILS 05/12/2015 VASILE SARMIENTO DO Ot 307.81 TENSION HEADACHE 05/12/2015 VASILE SARMIENTO DO Ot 784.0 HEADACHE 07/01/2015 Ot 611.72 07/01/2015 Ot V16.3 07/01/2015 GRACIELA VLADISLAVGAUDENCIO Chavez APRN Ot 611.6 07/01/2015 [facility] VLDAISLAV A [facility] Ot 729.5 07/01/2015 [facility] VLADISLAV A [facility] Ot 729.81 07/01/2015 VASILE SARMIENTO DO Ot 599.0 URIN TRACT INFECTION NOS 07/01/2015 VASILE SARMIENTO DO Ot 692.9 DERMATITIS NOS 07/01/2015 VASILE SARMIENTO DO Ot 723.1 CERVICALGIA 07/01/2015 VASILE SARMIENTO DO Ot 782.1 NONSPECIF SKIN ERUPT NEC 07/09/2015 Ot 611.72 07/09/2015 Ot V16.3 07/09/2015 VLADISLAV OWENS A [facility] Ot 611.6 07/09/2015 VLADISLAV OWENS A [facility] Ot 729.5 07/09/2015 VLADISLAV OWENS A [facility] Ot 729.81 07/23/2015 Ot 611.72 07/23/2015 Ot V16.3 07/23/2015 VLADISLAV OWENS A [facility] Ot 611.6 07/23/2015 VLADISLAV OWESN [facility] Ot 729.5 07/23/2015 VLADISLAV OWENS [facility] Ot 729.81 09/06/2015 Ot 611.72 09/06/2015 Ot V16.3 09/06/2015 VLADISLAV OWENS [facility] Ot 611.6 09/06/2015 VLADISLAV OWENS [facility] Ot 729.5 09/06/2015 VLADISLAV OWENS [facility] Ot 729.81 09/06/2015 [facility] Ot R21 RASH AND OTHER NONSPECIFIC SKIN ERUPTION 10/01/2015 JENN TRIPLETT, LAUREN Ledesma Ot I10 ESSENTIAL (PRIMARY) HYPERTENSION 10/01/2015 JENN TRIPLETT, LAUREN Ledesma Ot K21.0 GASTRO-ESOPHAGEAL REFLUX DISEASE WITH ES 10/01/2015 JENN TRIPLETT, LAUREN Ledesma Ot R07.89 OTHER CHEST PAIN 10/01/2015 Ot 611.72 10/01/2015 Ot V16.3 10/01/2015 VLADISLAV OWENS APRN Ot 611.6 10/01/2015 VLADISLAV OWENS APRN Ot 729.5 10/01/2015 VLADISLAV OWENS [facility] Ot 729.81 10/04/2015 JENN TRIPLETT, LAUREN Ledesma [...] INI 03/09/2016 VASILE SARMIENTO DO Ot Y92.[address] [facility] PL[facility] IN [facility] NON-INSTITUT (PRIVATE 03/09/2016 VASILE SARMIENTO [...] FAMILY HX- BREAST MALIG 06/22/2016 VLADISLAV OWENS [facility] Ot 611.6 GALACTORRHEA-NONOBSTET 06/22/2016 GRACIELAFLAVIAVLADISLAV A [facility] Ot 729.5 PAIN IN LIMB 06/22/2016 GRACIELAFLAVIAVLADISLAV A [facility] Ot 729.81 SWELLING OF LIMB 06/22/2016 Ot 611.72 LUMP OR MASS IN BREAST 06/22/2016 Ot V16.3 FAMILY HX- BREAST MALIG 06/22/2016 GRACIELAFLAVIAVLADISLAV A [facility] Ot 611.6 GALACTORRHEA-NONOBSTET 06/22/2016 GRACIELAFLAVIAVLADISLAV A [facility] Ot 729.5 PAIN IN LIMB 06/22/2016 GRACIELA, VLADISLAV A [facility] Ot 729.81 SWELLING OF LIMB 06/23/2016 VASILE SARMIENTO DO Ot 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 06/23/2016 VASILE SARMIENTO DO Ot X58.XXXA EXPOSURE TO OTHER SPECIFIED FACTORS, INI 06/23/2016 VASILE SARMIENTO DO Ot Y92.[address] IN [facility] NON-INSTITUT (PRIVATE 06/23/2016 VASILE SARMIENTO DO Ot Y99.8 OTHER EXTERNAL CAUSE STATUS 06/23/2016 VASILE SARMIENTO DO Ot Z23 ENCOUNTER FOR IMMUNIZATION 03/19/2017 GRACIELAFLAVIAVLADISLAV A [facility] Ot 611.6 GALACTORRHEA-NONOBSTET 03/19/2017 GRACIELA VLADISLAV A [facility] Ot 729.5 PAIN IN LIMB 03/19/2017 GRACIELA VLADISLAV A [facility] Ot 729.81 SWELLING OF LIMB 04/19/2017 [facility] Ot R00.0 TACHYCARDIA, UNSPECIFIED 04/19/2017 [facility] Ot R06.00 DYSPNEA, UNSPECIFIED 04/19/2017 [facility] Ot R07.89 OTHER CHEST PAIN 04/19/2017 [facility] Ot R51 HEADACHE 04/19/2017 GRACIELA VLADISLAV A [facility] Ot 611.6 GALACTORRHEA-NONOBSTET 04/19/2017 GRACIELA, VLADISLAV A [facility] Ot 729.5 PAIN IN LIMB 04/19/2017 VLADISLAV OWENS [facility] Ot 729.81 SWELLING OF LIMB 04/19/2017 USMAN MISTRY MD Ot L23.7 ALLERGIC CONTACT DERMATITIS DUE TO PLANT 04/19/2017 USMAN MISTRY MD Ot R21 RASH AND OTHER NONSPECIFIC SKIN ERUPTION 04/20/2017 [facility] Ot R00.0 TACHYCARDIA, UNSPECIFIED 04/20/2017 [facility] Ot R06.00 DYSPNEA, UNSPECIFIED 04/20/2017 [facility] Ot R07.89 OTHER CHEST PAIN 04/20/2017 [facility] Ot R51 HEADACHE 04/20/2017 USMAN MISTRY MD Ot I10 ESSENTIAL (PRIMARY) HYPERTENSION 04/20/2017 USMAN MISTRY MD Ot R00.2 PALPITATIONS 04/20/2017 USMAN MISTRY MD T Ot R07.89 OTHER CHEST PAIN 04/20/2017 USMAN MISTRY MD T Ot R07.9 CHEST PAIN, UNSPECIFIED 04/20/2017 USMAN MISTRY MD T Ot R51 HEADACHE 04/21/2017 [facility] Ot R00.0 TACHYCARDIA, UNSPECIFIED 04/21/2017 [facility] Ot R06.00 DYSPNEA, UNSPECIFIED 04/21/2017 [facility] Ot R07.89 OTHER CHEST PAIN 04/21/2017 [facility] Ot R51 HEADACHE 04/24/2017 USMAN MISTRY MD [...] DON DO, Ot Y92.[address] IN [facility] (PRIVATE 04/28/2017 DANA DON DO Ot Y99.8 OTHER EXTERNAL CAUSE STATUS 04/28/2017 DANA DON DO, Ot Z79.899 OTHER USP (CURRENT) DRUG THERAPY 04/28/2017 VLADISLAV OWENS [facility] Ot 611.6 GALACTORRHEA-NONOBSTET 04/28/2017 VLADISLAV OWENS [facility] Ot 729.5 PAIN IN LIMB 04/28/2017 VLADISLAV OWENS [facility] Ot 729.81 SWELLING OF LIMB 04/28/2017 FEDE TRIPLETT, USMAN Davis Ot L23.7 ALLERGIC CONTACT DERMATITIS DUE TO PLANT 04/28/2017 FEED TRIPLETT, USMAN Davis Ot R21 RASH AND [...] DON DO, Ot Y92.[address] [facility] (PRIVATE 04/29/2017 DANA DON DO Ot Y99.8 OTHER EXTERNAL CAUSE STATUS 04/29/2017 DANA DON DO, Ot Z79.899 OTHER INSPECTOR (CURRENT) DRUG THERAPY 05/06/2017 RAEANN RAINES Ot [...] AND CEREB INFRC W 05/06/2017 VLADISLAV OWENS [facility] Ot 611.6 GALACTORRHEA-NONOBSTET 05/06/2017 VLADISLAV OWENS [facility] Ot 729.5 PAIN IN LIMB 05/06/2017 VLADISLAV OWENS [facility] Ot 729.81 SWELLING OF LIMB 05/06/2017 FEDE TRIPLETT, USMAN Davis Ot L23.7 ALLERGIC CONTACT DERMATITIS DUE TO PLANT 05/06/2017 FEDE TRIPLETT, USMAN Davis Ot R21 RASH AND OTHER NONSPECIFIC SKIN ERUPTION 05/10/2017 [facility] Ot I10 ESSENTIAL (PRIMARY) HYPERTENSION 05/10/2017 [facility] Ot M54.2 CERVICALGIA 05/10/2017 [facility] Ot R51 HEADACHE 05/10/2017 [facility] APRN [...] AND CEREB INFRC W 08/07/2017 VLADISLAV OWENS [facility] Ot 611.6 GALACTORRHEA-NONOBSTET 08/07/2017 VLADISLAV OWENS [facility] Ot 729.5 PAIN IN LIMB 08/07/2017 VLADISLAV OWENS [facility] Ot 729.81 SWELLING OF LIMB 08/07/2017 FEDE [...] SCOLIOSIS, SITE UNSPECI 08/07/2017 CHILDS, PETER J [facility] Ot Z80.1 FAMILY HISTORY OF MALIG NEOPLASM OF TRAC 08/07/2017 [facility] APRN Ot Z82.49 FAMILY HX OF ISCHEM HEART DIS AND OTH DI 08/07/2017 FLAVIA OWENSGAUDENCIO Chavez [facility] Ot 611.6 GALACTORRHEA-NONOBSTET 08/07/2017 GRACIELAFLAVIAVLADISLAV A [facility] Ot 729.5 PAIN IN LIMB 08/07/2017 GRACIELA VLADISLAV Chavez [facility] Ot 729.81 SWELLING OF LIMB 08/07/2017 FEDE [...] AND OTH DI 02/06/2018 FLAVIA OWENSGAUDENCIO Chavez [facility] Ot 611.6 GALACTORRHEA-NONOBSTET 02/06/2018 GRACIELAFLAVIAVLADISLAV A [facility] Ot 729.5 PAIN IN LIMB 02/06/2018 GRACIELA VLADISLAV Scott [facility] Ot 729.81 SWELLING OF LIMB 02/06/2018 FEDE [...] ALLERGY STATUS TO NARCOTIC AGENT STATUS 04/03/2018 MARK GODOY MD Ot E78.00 PURE HYPERCHOLESTEROLEMIA, UNSPECIFIED 04/03/2018 MARK GODOY MD Ot F32.9 MAJOR DEPRESSIVE DISORDER, SINGLE EPISOD 04/03/2018 MARK GODOY MD Ot F41.9 ANXIETY DISORDER, UNSPECIFIED 04/03/2018 MARK GODOY MD Ot G43.909 MIGRAINE, UNSP, NOT INTRACTABLE, WITHOUT 04/03/2018 MARK GODOY MD Ot I10 ESSENTIAL (PRIMARY) HYPERTENSION 04/03/2018 MARK GODOY MD Ot I47.1 SUPRAVENTRICULAR TACHYCARDIA 04/03/2018 MARK GODOY MD Ot I48.92 UNSPECIFIED ATRIAL FLUTTER 04/03/2018 MARK GODOY MD Ot Z80.1 FAMILY HISTORY OF MALIG NEOPLASM OF TRAC 04/03/2018 MARK GODOY MD Ot Z80.3 FAMILY HISTORY OF MALIGNANT NEOPLASM OF 04/03/2018 MARK GODOY MD Ot Z82.49 FAMILY HX OF ISCHEM HEART DIS AND OTH DI 04/03/2018 MARK GODOY MD Ot Z86.73 PRSNL HX OF TIA (TIA), AND CEREB INFRC W 04/03/2018 MARK GODOY MD Ot Z88.5 ALLERGY STATUS TO NARCOTIC AGENT STATUS 04/03/2018 VLADISLAV OWENS [facility] Ot 611.6 GALACTORRHEA-NONOBSTET 04/03/2018 VLADISLAV OWENS [facility] Ot 729.5 PAIN IN LIMB 04/03/2018 VLADISLAV OWENS [facility] Ot 729.81 SWELLING OF LIMB 04/03/2018 USMAN MISTRY MD Ot L23.7 ALLERGIC CONTACT DERMATITIS DUE TO PLANT 04/03/2018 USMAN MISTRY MD Ot R21 RASH AND OTHER NONSPECIFIC SKIN ERUPTION 04/05/2018 MARK GODOY MD Ot E78.00 PURE HYPERCHOLESTEROLEMIA, UNSPECIFIED 04/05/2018 MARK GODOY MD Ot F32.9 MAJOR DEPRESSIVE DISORDER, SINGLE EPISOD 04/05/2018 MARK GODOY MD Ot F41.9 ANXIETY DISORDER, UNSPECIFIED 04/05/2018 MARK GODOY MD Ot G43.909 MIGRAINE, UNSP, NOT INTRACTABLE, WITHOUT 04/05/2018 MARK GODOY MD Ot I10 ESSENTIAL (PRIMARY) HYPERTENSION 04/05/2018 MARK GODOY MD Ot I47.1 SUPRAVENTRICULAR TACHYCARDIA 04/05/2018 MARK GODOY MD Ot I48.92 UNSPECIFIED ATRIAL FLUTTER 04/05/2018 MARK GODOY MD Ot Z80.1 FAMILY HISTORY OF MALIG NEOPLASM OF TRAC 04/05/2018 MARK GODOY MD Ot Z80.3 FAMILY HISTORY OF MALIGNANT NEOPLASM OF 04/05/2018 MARK GODOY MD Ot Z82.49 FAMILY HX OF ISCHEM HEART DIS AND OTH DI 04/05/2018 MARK GODOY MD Ot Z86.73 PRSNL HX OF TIA (TIA), AND CEREB INFRC W 04/05/2018 MARK GODOY MD Ot Z88.5 ALLERGY STATUS TO NARCOTIC AGENT STATUS 04/08/2018 CATALINA TRIPLETT, SABRINA Griffith Ot R00.2 PALPITATIONS 04/10/2018 IMELDA TRIPLETT, RHONDA Fontaine Ot E78.00 PURE HYPERCHOLESTEROLEMIA, UNSPECIFIED 04/10/2018 RHONDA SEGURA MD Ot F32.9 MAJOR DEPRESSIVE DISORDER, SINGLE EPISOD 04/10/2018 RHONDA SEGURA MD Ot F41.9 ANXIETY DISORDER, UNSPECIFIED 04/10/2018 RHONDA SEGURA MD Ot G43.909 MIGRAINE, UNSP, NOT INTRACTABLE, WITHOUT 04/10/2018 RHONDA SEGURA MD Ot I10 ESSENTIAL (PRIMARY) HYPERTENSION 04/10/2018 RHONDA SEGURA MD Ot R00.2 PALPITATIONS 04/10/2018 RHONDA SEGURA MD Ot R07.89 OTHER CHEST PAIN 04/10/2018 RHONDA SEGURA MD Ot Z80.1 FAMILY HISTORY OF MALIG NEOPLASM OF TRAC 04/10/2018 RHONDA SEGURA MD, Ot Z80.3 FAMILY HISTORY OF MALIGNANT NEOPLASM OF 04/10/2018 RHONDA SEGURA MD, Ot Z82.49 FAMILY HX OF ISCHEM HEART DIS AND OTH DI 04/10/2018 RHONDA SEGURA MD, Ot Z86.73 PRSNL HX OF TIA (TIA), AND CEREB INFRC W 04/10/2018 RHONDA SEGURA MD, Ot Z88.5 ALLERGY STATUS TO NARCOTIC AGENT STATUS 04/19/2018 Chapis HENRIQUEZ MD Ot I10 ESSENTIAL (PRIMARY) HYPERTENSION 04/19/2018 Chapis HENRIQUEZ MD Ot R00.2 PALPITATIONS 04/19/2018 Chapis HENRIQUEZ MD Ot R06.02 SHORTNESS OF BREATH 04/19/2018 Chapis HENRIQUEZ MD Ot R07.89 OTHER CHEST PAIN 04/19/2018 Chapis HENRIQUEZ MD Ot R53.83 OTHER FATIGUE 04/19/2018 Chapis HENRIQUEZ MD Ot I10 ESSENTIAL (PRIMARY) HYPERTENSION 04/19/2018 Chapis HENRIQUEZ MD Ot R00.2 PALPITATIONS 04/19/2018 Chapis HENRIQUEZ MD Ot R06.02 SHORTNESS OF BREATH 04/19/2018 Chapis HENRIQUEZ MD Ot R07.89 OTHER CHEST PAIN 04/19/2018 Chapis HENRIQUEZ MD Ot R53.83 OTHER FATIGUE 07/17/2018 RAEANN RAINES Ot E78.00 PURE HYPERCHOLESTEROLEMIA, UNSPECIFIED 07/17/2018 RAEANN RAINES Ot F32.9 MAJOR DEPRESSIVE DISORDER, SINGLE EPISOD 07/17/2018 RAEANN RAINES Ot F41.9 ANXIETY DISORDER, UNSPECIFIED 07/17/2018 RAEANN RAIENS Ot G43.909 MIGRAINE, UNSP, NOT INTRACTABLE, WITHOUT 07/17/2018 RAEANN RAINES Ot G44.209 TENSION-TYPE HEADACHE, UNSPECIFIED, NOT 07/17/2018 RAEANN RAINES Ot I10 ESSENTIAL (PRIMARY) HYPERTENSION 07/17/2018 RAEANN RAINES Ot M25.512 PAIN IN LEFT SHOULDER 07/17/2018 RAEANN RAINES Ot S46.911A STRAIN UNSP MUSC/FASC/TEND AT SHLDR/UP A 07/17/2018 RAEANN RAINES Ot W18.39XA OTHER FALL ON SAME LEVEL, INITIAL ENCOUN 07/17/2018 RAEANN RAINES Ot Z80.1 FAMILY HISTORY OF MALIG NEOPLASM OF TRAC 07/17/2018 RAEANN RAINES Ot Z80.3 FAMILY HISTORY OF MALIGNANT NEOPLASM OF 07/17/2018 RAEANN RAINES Ot Z82.49 FAMILY HX OF ISCHEM HEART DIS AND OTH DI 07/17/2018 RAEANN RAINES Ot Z86.73 PRSNL HX OF TIA (TIA), AND CEREB INFRC W 07/17/2018 RAEANN RAINES Ot Z88.5 ALLERGY STATUS TO NARCOTIC AGENT STATUS Procedures Code Description Performed By Performed On 99.10 INJECT/INFUSE THROMBOLYTIC AGENT 11/20/2011 75861 ROUTINE VENIPUNCTURE 11/10/2013 6236233 GFR CALC (RESULT ONLY) 11/10/2013 24026 CMP 11/10/2013 86024 LIPID PANEL 11/10/2013 36989 MAMMOGRAM DX, ABHINAV 10/15/2014 60331 GC/CHLAM PROBE (STATE) 10/15/2014 03392 PAP SMEAR 10/15/2014 Q0091 PAP SMEAR OBTAIN SMEAR 10/15/2014 07025 TRICHOMONAS (IN-HOUSE) 10/15/2014 36984 CULTURE UROGENITAL 10/18/2014 30221 ROUTINE VENIPUNCTURE 10/29/2014 36212 PROLACTIN 10/29/2014 15589 TSH 10/29/2014 25187 TRICHOMONAS (IN-HOUSE) 03/15/2015 80799 CULTURE UROGENITAL 03/16/2015 41672 GC/CHLAM PROBE (STATE) 03/16/2015 Results Test Result [...] measurement (mass/volume) 4.2 g/dL 3.2-4.5 Magnesium - 06/03/17 00:40 Magnesium 2.5 mg/dL 1.8-2.4 Serum or [...] - 04/03/18 11:56 Lipase 27 U/L 8-78 TSH - 04/05/18 13:48 TSH 2.47 mIU/L NRG Complete blood count (CBC) with automated white blood cell (WBC) differential - 04/08/18 12:55 Blood leukocytes automated count (number/volume) 5.2 10*3/uL 4.3-11.0 Blood erythrocytes automated count (number/volume) 4.27 10*6/uL 4.35-5.85 Venous blood hemoglobin measurement (mass/volume) 12.3 g/dL 11.5-16.0 Blood hematocrit (volume fraction) 37 % 35-52 Automated erythrocyte mean corpuscular volume 87 [foz_us] 80-99 Automated erythrocyte mean corpuscular hemoglobin (mass per erythrocyte) 29 pg 25-34 Automated erythrocyte mean corpuscular hemoglobin concentration measurement ( mass/volume) 33 g/dL 32-36 Automated erythrocyte distribution width ratio 14.0 % 10.0-14.5 Automated blood platelet count (count/volume) 242 10*3/uL 130-400 Automated blood platelet mean volume measurement 10.5 [foz_us] 7.4-10.4 Automated blood neutrophils/100 leukocytes 53 % 42-75 Automated blood lymphocytes/100 leukocytes 36 % 12-44 Blood monocytes/100 leukocytes 6 % 0-12 Automated blood eosinophils/100 leukocytes 4 % 0-10 Automated blood basophils/100 leukocytes 1 % 0-10 Blood neutrophils automated count (number/volume) 2.7 10*3 1.8-7.8 Blood lymphocytes automated count (number/volume) 1.9 10*3 1.0-4.0 Blood monocytes automated count (number/volume) 0.3 10*3 0.0-1.0 Automated eosinophil count 0.2 10*3/uL 0.0-0.3 Automated blood basophil count (count/volume) 0.0 10*3/uL 0.0-0.1 PT panel in platelet poor plasma by coagulation assay - 04/08/18 12:55 Prothrombin time (PT) in platelet poor plasma by coagulation assay 12.8 s 12.2-14.7 INR in platelet poor plasma or blood by coagulation assay 1.0 0.8-1.4 Activated partial thromboplastin time (aPTT) in platelet poor plasma bycoagulation assay - 04/08/18 12:55 Activated partial thromboplastin time (aPTT) in platelet poor plasma bycoagulation assay 27 s 24-35 Comprehensive metabolic panel - 04/08/18 12:55 Serum or plasma sodium measurement (moles/volume) 140 mmol/L 135-145 Serum or plasma potassium measurement (moles/volume) 4.1 mmol/L 3.6-5.0 Serum or plasma chloride measurement (moles/volume) 108 mmol/L 98-107 Carbon dioxide 24 mmol/L 21-32 Serum or plasma anion gap determination (moles/volume) 8 mmol/L 5-14 Serum or plasma urea nitrogen measurement (mass/volume) 9 mg/dL 7-18 Serum or plasma creatinine measurement (mass/volume) 0.76 mg/dL 0.60-1.30 Serum or plasma urea nitrogen/creatinine mass ratio 12 NRG Serum or plasma creatinine measurement with calculation of estimated glomerular filtration rate > NRG Serum or plasma glucose measurement (mass/volume) 96 mg/dL 70-105 Serum or plasma calcium measurement (mass/volume) 9.5 mg/dL 8.5-10.1 Serum or plasma total bilirubin measurement (mass/volume) 0.6 mg/dL 0.1-1.0 Serum or plasma alkaline phosphatase measurement (enzymatic activity/volume) 101 U/L 40-136 Serum or plasma aspartate aminotransferase measurement (enzymatic activity/ volume) 22 U/L 5-34 Serum or plasma alanine aminotransferase measurement (enzymatic activity/volume ) 17 U/L 0-55 Serum or plasma protein measurement (mass/volume) 7.1 g/dL 6.4-8.2 Serum or plasma albumin measurement (mass/volume) 4.2 g/dL 3.2-4.5 Magnesium - 04/08/18 12:55 Magnesium 2.0 mg/dL 1.8-2.4 Serum or plasma troponin i.cardiac measurement (mass/volume) - 04/08/18 12:55 Serum or plasma troponin i.cardiac measurement (mass/volume) < ng/ mL <0.30 Myoglobin, serum - 04/08/18 12:55 Myoglobin, serum 32.1 ng/mL 10.0-92.0 Serum or plasma troponin i.cardiac measurement (mass/volume) - 04/08/18 16:10 Serum or plasma troponin i.cardiac measurement (mass/volume) < ng/ mL <0.30 Encounters ACCT No. Visit Date/Time Discharge Status Pt. Type Provider Facility Loc./Unit Complaint [id number] 03/15/2015 17:47:00 03/15/2015 23:59:59 [facility] Outpatient VLADISLAV OWENS APRN [id number] 10/15/2014 10:50:00 10/15/2014 23:59:59 [facility] Outpatient VLADISLAV OWENS APRN [id number] 10/15/2014 10:50:00 10/15/2014 23:59:59 [facility] VLADISLAV OWENS APRN [id number] 11/10/2013 08:20:00 11/10/2013 23:59:59 [facility] Outpatient RENETTA CARPIO MD [id number] 08/29/2013 15:10:00 08/29/2013 23:59:59 [facility] Outpatient CONSTANTIN MCNAIR DDS [id number] 02/20/2012 09:24:00 Document Registration [id number] 04/25/2017 09:12:00 Document Registration [id number] 05/17/2018 13:15:00 05/17/2018 23:59:59 [facility] Outpatient RENETTA CARPIO MD [facility] [id number] 04/05/2018 13:20:00 Document Registration [id number] 05/20/2018 08:00:00 05/20/2018 23:59:59 CLS Preadmit Chapis HENRIQUEZ MD [facility] CARD SOB,PALPITATIONS [id number] 04/19/2018 09:00:00 04/19/2018 23:59:59 CLS Preadmit Chapis HENRIQUEZ MD [facility] CARD PALPITATIONS,SOB [id number] 04/18/2018 12:32:00 04/18/2018 23:59:59 [facility] Outpatient Chapis HENRIQUEZ MD [facility] CARD ANTERIOR CHEST WALL PAIN ,FATIGUE,SOB [id number] 04/08/2018 12:50:00 04/08/2018 17:40:00 DIS Emergency RHONDA SEGURA MD [facility] ER IRREG HEARTRATE,WEAK [id number] 04/04/2018 11:36:00 04/04/2018 23:59:59 [facility] Outpatient SABRINA ARNOLD MD [facility] CARD R00.2 PALPITATIONS [id number] 04/03/2018 11:46:00 04/03/2018 15:38:00 DIS Emergency MARK GODOY MD [facility] ER COUGH/HEART FLUTTERING [id number] 02/06/2018 13:30:00 02/06/2018 17:14:00 DIS Emergency RAEANN RAINES [facility] ER OFF BALANCE [id number] 08/07/2017 20:01:00 08/07/2017 22:34:00 DIS Emergency VIRAL CHILDS APRN [facility] ER PT FEELS LIKE SOMETHING IS STUCK IN HER THROAT [id number] 05/10/2017 13:13:00 05/10/2017 15:05:00 DIS Emergency VIRAL CHILDS APRN [facility] ER LEFT SIDE HEAD/NECK/ SHOULDER PAIN [id number] 05/06/2017 18:33:00 05/06/2017 20:33:00 DIS Emergency RAEANN RAINES [facility] ER HEADACHE/NECK PAIN [id number] 04/27/2017 23:38:00 04/28/2017 03:37:00 DIS Emergency DANA DON DO [facility] ER PASSED OUT,HEAD RT CHECK PAINFUL [id number] 04/20/2017 20:57:00 04/20/2017 22:28:00 DIS Emergency USMAN MISTRY MD [facility] ER PALPITATIONS/SOB/ TIGHT IN CHEST/SWELLING/HEADACHE [id number] 04/19/2017 14:04:00 04/19/2017 17:29:00 DIS Emergency VIRAL CHILDS APRN [facility] ER RAPID HEART RATE FATIGUE HEADACHE [id number] 03/19/2017 12:55:00 03/19/2017 23:59:59 CLS Emergency USMAN MISTRY MD [facility] ER RASH/POSS POISON VALENTINE [id number] 03/09/2016 04:39:00 03/09/2016 05:12:00 DIS Emergency VASILE SARMIENTO DO [facility] ER FO IN RT EYE [id number] 01/05/2016 01:10:00 01/05/2016 02:35:00 DIS Emergency MARK GODOY MD [facility] ER PAIN ALL OVER,VOMITING ,CHILLS [id number] 01/03/2016 14:29:00 01/03/2016 18:20:00 DIS Emergency RAEANN RAINES [facility] ER GENERAL PAIN/SOA [id number] 10/01/2015 13:19:00 10/01/2015 15:43:00 DIS Emergency LAUREN BARAJAS MD [facility] ER CHEST PAIN [id number] 09/06/2015 12:58:00 09/06/2015 13:50:00 DIS Emergency VIRAL CHILDS APRN [facility] ER RASH/SKIN ISSUES [id number] 07/01/2015 07:27:00 07/01/2015 08:54:00 DIS Emergency GUILLERMINA VASILE GARDUNO [facility] ER BACK PAIN;RASH [id number] 05/12/2015 02:43:00 05/12/2015 04:16:00 DIS Emergency VASILE SARMIENTO DO [facility] ER HEAD ACHE [id number] 02/28/2015 20:05:00 02/28/2015 21:25:00 DIS Emergency VIRAL CHILDS APRN [facility] ER DIZZINESS,LETHARGIC [id number] 10/20/2014 11:55:00 10/20/2014 23:59:59 CLS Outpatient VLADISLAV OWENS APRN [facility] RAD BILATERAL DUCTAL PAIN AND SWELLING [id number] 10/12/2014 13:33:00 10/12/2014 15:13:00 DIS Emergency VASILE SARMIENTO DO [facility] ER HEADACHE BREAST DISCHARGE/ PAIN [id number] 07/08/2014 22:37:00 07/09/2014 12:30:00 DIS Inpatient PIERCE TRIPLETT, KEYLA Elise [facility] 4TH LEFT SIDED NUMBNESS; HEADACHE [id number] 07/02/2014 12:15:00 07/02/2014 14:24:00 DIS Emergency VASILE SARMIENTO DO [facility] ER HEART FLUTTERING [id number] 03/25/2014 17:37:00 03/25/2014 18:46:00 DIS Emergency MARK GODOY MD [facility] ER BACK PAIN [id number] 02/19/2014 18:28:00 02/19/2014 20:47:00 DIS Emergency RAEANN RAINES [facility] ER BACK PAIN [id number] 01/07/2019 14:30:00 ACT Emergency FREDDIELAURENJAXIS [facility] ER CHEST PAIN [id number] 06/22/2016 13:59:00 Document Registration [id number] 06/22/2016 13:59:00 Document Registration [id number] 12/29/2015 01:40:00 Document Registration [id number] 11/23/2011 13:15:00 Document Registration [id number] 11/20/2011 21:45:00 Document Registration [id number] 07/02/2011 03:16:00 Document Registration [id number] 05/03/2011 09:02:00 Document Registration [id number] 09/23/2008 14:45:00 Document Registration
[2019-01-07 15:11] LABS: FIBRIN DEGRADATION PRODUCTS 0.5 UG/ML (0.00-0.49)
--- NOTE | 2019-01-07 15:13 | ED Chest Pain ---
General Chief Complaint: Chest Pain Stated Complaint: CHEST PAIN Nursing Triage Note: PT PRESENTS TO ER WITH COMPLAINT OF LEFT SIDED BREAST PAIN THAT RADIATES UP IN HER NECK, SHOULDERS, AND BACK. PT STATES THIS HAS BEEN GOING ON FOR TWO DAYS. PT ALSO STATES THAT SHE HAS HAD INTERMITTENT LEFT BREAST DISCHARGE FOR THE LAST MONTH. Nursing Sepsis Screen: No Definite Risk Source: patient Exam Limitations: no limitations (MARK GODOY MD) History of Present Illness Date Seen by Provider: Jan 07, 2019 Time Seen by Provider: 14:42 Initial Comments Here with complaint of left side chest pain that is actually at her breast and radiates to her neck and left arm. Also has right arm pain. States that this is been going on for 2 days. Also has had breast discharge intermittently over the last month but not today. Planes of left breast pain and left axilla pain. Has not had mammography for quite some time. Timing/Duration: 2-3 days Severity/Quality: moderate, aching, pressure Location: central Radiation: arms, neck, shoulders Prior CP/Workup: echocardiography, stress test Modifying Factors: improves with rest ASA po PARAMEDIC RN: No NTG SL PARAMEDIC RN: No Associated Symptoms: No abdominal pain, No back pain, No diaphoresis, No nausea /vomiting, No shortness of breath, No weakness (MARK GODOY MD) Allergies and Home Medications Allergies Coded Allergies: morphine (Verified Allergy, Unknown, 04/27/17) Home Medications Cyclobenzaprine HCl 10 Mg Tablet, 10 MG PO Q8H PRN for neck spasm Prescribed by: DANA DON on 04/28/17 032 Diclofenac Sodium 50 Mg Tablet.dr, 50 MG PO Q6H PRN for neck/facial pain Prescribed by: DANA DON on 04/28/17 0329 Diclofenac Sodium 75 Mg Tablet.dr, 75 MG PO BID PRN for pain Prescribed by: RAEANN SILVA on 02/06/18 1656 Famotidine 20 Mg Tablet, 20 MG PO BID Prescribed by: RAEANN SILVA on 01/03/16 174 Lisinopril 20 Mg Tablet, 20 MG PO DAILY Prescribed by: MARK GODOY on 04/03/18 1528 Orphenadrine Citrate 100 Mg Tablet.er, 100 MG PO BID PRN for SPASMS Prescribed by: RAEANN SILVA on 6/11/17 2028 Orphenadrine Citrate 100 Mg Tablet.er, 100 MG PO BID PRN for SPASMS Prescribed by: RAEANN SILVA on 02/06/18 165 Pantoprazole Sodium 40 Mg Tablet.dr, 40 MG PO DAILY Prescribed by: VIRAL CHILDS on 08/07/172208 Paroxetine HCl 40 Mg Tablet, 40 MG PO DAILY, (Reported) Tramadol HCl 50 Mg Tablet, 50-100 MG PO Q4H PRN for PAIN-MILD TO MODERATE Prescribed by: RAEANN SILVA on 05/06/172027 Patient Home Medication List Home Medication List Reviewed: Yes (MARK GODOY MD) Review of Systems Review of Systems Constitutional: see HPI; No chills, No fever EENTM: No Symptoms Reported Respiratory: No Symptoms Reported Cardiovascular: See HPI, Chest Pain; Denies Edema; Lightheadedness Gastrointestinal: No Symptoms Reported Genitourinary: Discharge (breast), Pain (breast left) Musculoskeletal: no symptoms reported Skin: no symptoms reported Psychiatric/Neurological: No Symptoms Reported (MARK GODOY MD) All Other Systems Reviewed Negative Unless Noted: Yes (MARK GODOY MD) Past Gszdcky-Ehfldc-Moqbuf Hx Past Med/Social Hx: Reviewed Nursing Past Med/Soc Hx (MARK GODOY MD) Patient Social History Alcohol Use: Denies Use Recreational Drug Use: No Smoking Status: Never a Smoker 2nd Hand Smoke Exposure: No Recent Foreign Travel: No Contact w/Someone Who Travel: No Recent Infectious Disease Expo: No Recent Hopitalizations: No (MARK GODOY MD) Immunizations Up To Date Tetanus Booster (TDap): More than 5yrs Date of Pneumonia Vaccine: Dec 30, 2015 (MARK GODOY MD) Seasonal Allergies Seasonal Allergies: No (MARK GODOY MD) Past Medical History Surgeries: Yes (WISDOM TEETH) Respiratory: No Cardiac: Yes (tachycardia) Atrial Fibrillation, High Cholesterol, Hypertension Neurological: Yes (OCCASIONAL HEADACHES) Concussion, Headaches /Migraines, Stroke 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 Disorders: No 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 Disorders: Denies [employer]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 Sexually Transmitted Disease: No Genitourinary: No Gastrointestinal: No Musculoskeletal: Yes (CHRONIC NECK PAIN) Scoliosis, Chronic Back Pain Endocrine: No HEENT: No Cancer: No Psychosocial: Yes Anxiety, Depression Integumentary: No Recent Skin Changes Blood Disorders: No (MARK GODOY MD) Family Medical History Reviewed Nursing Family Hx (MARK GODOY MD) Cardiovascular disease FH: breast cancer 19 MOTHER (METS) FH: lung cancer 19 FATHER FHx: mental retardation G8 BROTHER Myocardial infarction 19 FATHER (X2) Heart Disease, Cancer (MARK GODOY MD) Physical Exam Vital Signs Vital Signs - First Documented 01/07/19 14:27 Pulse 100 Resp 15 B/P (MAP) 162/113 (129) Pulse Ox 99 O2 Delivery Room Air (VEE ACOSTA) Vital Signs Capillary Refill : Less Than 3 Seconds (MARK GODOY MD) Height, Weight, BMI Height: 5'6.00" Weight: 180lbs. 5.0oz. 81.446782sa; 33.25 BMI Method:Stated General Appearance: No Apparent Distress, WD/WN HEENT: PERRL/EOMI, Pharynx Normal Neck: Non Tender, Supple Respiratory: Lungs Clear, Normal Breath Sounds Cardiovascular: Regular Rate, Rhythm, No Murmur Gastrointestinal: Non Tender, Soft Extremity: Normal Inspection, Normal Range of Motion, Non Tender, No Calf Tenderness Neurologic/Psychiatric: Alert, Oriented x3 Skin: Normal Color, Warm/Dry, Other (bilateral breast exam shows multiple areas of dense tissue on palpation. No obvious mass noted and no discharge either nipple. Fullness in the left axilla questions although may be extension of dense tissue.) (MARK GODOY MD) Progress/Results/Core Measures Results/Orders Lab Results Laboratory Tests Test 01/07/19 14:45 Range/Units White Blood Count 7.4 4.3-11.0 10^3/uL Red Blood Count 4.96 4.35-5.85 10^6/uL Hemoglobin 12.2 11.5-16.0 G/DL Hematocrit 39 35-52 % Mean Corpuscular Volume 79 L 80-99 FL Mean Corpuscular Hemoglobin 25 25-34 PG Mean Corpuscular Hemoglobin Concent 31 L 32-36 G/DL Red Cell Distribution Width 18.9 H 10.0-14.5 % Platelet Count 290 130-400 10^3/uL Mean Platelet Volume 10.6 H 7.4-10.4 FL Neutrophils (%) (Auto) 55 42-75 % Lymphocytes (%) (Auto) 35 12-44 % Monocytes (%) (Auto) 5 0-12 % Eosinophils (%) (Auto) 5 0-10 % Basophils (%) (Auto) 1 0-10 % Neutrophils # (Auto) 4.0 1.8-7.8 X 10^3 Lymphocytes # (Auto) 2.6 1.0-4.0 X 10^3 Monocytes # (Auto) 0.3 0.0-1.0 X 10^3 Eosinophils # (Auto) 0.4 H 0.0-0.3 10^3/uL Basophils # (Auto) 0.1 0.0-0.1 10^3/uL Prothrombin Time 13.0 12.2-14.7 SEC INR Comment 1.0 0.8-1.4 Activated Partial Thromboplast Time 28 24-35 SEC D-Dimer 0.50 H 0.00-0.49 UG/ML Sodium Level 139 135-145 MMOL/L Potassium Level 3.6 3.6-5.0 MMOL/L Chloride Level 105 98-107 MMOL/L Carbon Dioxide Level 23 21-32 MMOL/L Anion Gap 11 5-14 MMOL/L Blood Urea Nitrogen 12 7-18 MG/DL Creatinine 0.93 0.60-1.30 MG/DL Estimat Glomerular Filtration Rate > 60 BUN/Creatinine Ratio 13 Glucose Level 123 H 70-105 MG/DL Calcium Level 10.0 8.5-10.1 MG/DL Corrected Calcium 9.7 8.5-10.1 MG/DL Magnesium Level 2.0 1.8-2.4 MG/DL Total Bilirubin 0.6 0.1-1.0 MG/DL Aspartate Amino Transf (AST/SGOT) 26 5-34 U/L Alanine Aminotransferase (ALT/SGPT) 22 0-55 U/L Alkaline Phosphatase 102 40-136 U/L Myoglobin 42.0 10.0-92.0 NG/ML Troponin I < 0.028 <0.028 NG/ML B-Type Natriuretic Peptide < 10.0 <100.0 PG/ML Total Protein 7.8 6.4-8.2 GM/DL Albumin 4.4 3.2-4.5 GM/DL Amylase Level 95 25-125 U/L Lipase 32 8-78 U/L (VEE ACOSTA STUDENT) Medications Given in ED Current Medications Medications Dose Ordered Sig/Lyndsay Route Start Time Stop Time Status Last Admin Dose Admin Aspirin 324 mg ONCE ONCE PO 01/07/19 14:45 01/07/19 14:46 DC 01/07/19 14:47 324 MG Iohexol 125 ml ONCE ONCE IV 01/07/19 16:00 01/07/19 16:01 DC 01/07/19 16:31 125 ML Sodium Chloride 100 ml ONCE ONCE IV 01/07/19 16:00 01/07/19 16:01 DC 01/07/19 16:31 80 ML Sodium Chloride 1,000 ml @ 0 mls/hr Q0M ONCE IV 01/07/19 16:37 01/07/19 16:38 DC 01/07/19 17:08 1,000 MLS/HR (VEE ACOSTA STUDENT) Vital Signs/I&O 01/07/19 14:27 Pulse 100 Resp 15 B/P (MAP) 162/113 (129) Pulse Ox 99 O2 Delivery Room Air (VEE ACOSTA STUDENT) Blood Pressure Mean: 129 Progress Progress Note : Progress Note Seen and evaluated. IV, labs, EKG and chest x-ray ordered. ASA 324 mg by mouth given. Normal saline 1 L bolus. Monitor patient. CT angiogram ordered for tachycardia and mildly elevated d-dimer. Monitor patient. 1756: CT angiogram negative. No other acute findings. Patient needs mammogram to further evaluate the breast. I did talk with the patient at length regarding this and instructed her to call her doctor first thing in the morning for mammogram appointment. I will send a copy of the chart to Dr. Carpio. Discharged home with return precautions. Patient verbalize understanding instructions and agreement with plan. (MARK GODOY MD) Initial ECG Impression Date: Jan 07, 2019 Initial ECG Impression Time: 14:29 Initial ECG Rate: 97 Initial ECG Rhythm: Normal Sinus Comment Sinus rhythm with normal axis. No evidence of ST elevation TN. Similar to previous of 04/08/18. Interpreted by me. (MARK GODOY MD) Diagnostic Imaging Diagonstic Imaging: Xray Plain Films/CT/US/NM/MRI: chest Comments NAME: JC BOUCHER [facility] REC#: [id number] PT STATUS: REG ER : 1970 PHYSICIAN: JAGDEEP OROZCO ADMIT DATE: 01/07/19/ER Signed Date of Exam: 01/07/19 CHEST PA/LAT (2 VIEW) INDICATION: Dyspnea and chest pain. TECHNIQUE: PA and lateral views of the chest were obtained. COMPARISON: 04/08/2018. FINDINGS: The heart size and pulmonary vascularity are within normal limits. The lungs are clear bilaterally. IMPRESSION: Unremarkable chest. Dictated by: Dictated on workstation # [id number] Dict: 01/07/19 1518 Trans: 01/07/19 1608 Interpreted by: RAMA DIAZ MD Electronically signed by: RAMA DIAZ MD 01/07/19 1608 (MARK GODOY MD) Diagonstic Imaging: CT Plain Films/CT/US/NM/MRI: chest Comments NAME: JC BOUCHER [facility] REC#: [id number] PT STATUS: REG ER : 1970 PHYSICIAN: MARK GODOY MD ADMIT DATE: 01/07/19/ER Signed Date of Exam: 01/07/19 CT ANGIO CHEST W PROCEDURE: CT angiography of the chest with contrast. TECHNIQUE: Multiple contiguous axial images were obtained through the chest after uneventful bolus administration of intravenous contrast. 2D reconstructed CTA MIP acquisitions were also performed. INDICATION: Chest pain and left arm and shoulder pain. COMPARISON: Correlation is made with prior CT angiogram of the chest from 04/28/2017. FINDINGS: Evaluation of the pulmonary arterial system is without evidence of thromboembolism. No filling defects are seen within central, lobar, or segmental branches. Thoracic aorta is normal in caliber. No dissection is seen. No pericardial or pleural fluid is identified. 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 There is no pericardial or pleural fluid identified. 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 No infiltrates are seen. No nodule or mass is detected. Upper abdomen demonstrates generalized hepatic steatosis. IMPRESSION: Stable CT angiogram of the chest. There are no findings to suggest pulmonary embolism or thoracic aortic dissection. Dictated by: Dictated on workstation # [id number] Dict: 01/07/191655 Trans: 01/07/191720 Interpreted by: ADRYAN CHURCH MD Electronically signed by: ADRYAN CHURCH MD 01/07/191720 Time of Consult: 15:37 (VEE ACOSTA STUDENT) Departure Impression Primary Impression: Chest pain Qualified Codes: R07.9 - Chest pain, unspecified Additional Impression: Breast pain, left Disposition: 01 HOME, SELF-CARE Condition: Stable Departure-Patient Inst. Decision time for Depature: 17:57 (MARK GODOY MD) Referrals: RENETTA CRAPIO MD (PCP/Family) Primary Care Physician Patient Instructions: Breast Cancer Screening, Chest Pain (DC) Add. Discharge Instructions: All discharge instructions reviewed with patient and/or family. Voiced understanding. It is very important that you call your DrBharat in the morning for recheck and further evaluation and to get set up for mammogram. Discussed with your DrBharat about your breast concerns including pain and discharge. Follow-up with your doctor otherwise for your concerns for chest pain. Return for worsening, fever , vomiting, weakness, breathing problems or other concerns as needed. Copy Copies To 1: RENETTA CARPIO MD, TIMOTHY D MD Jan 07, 2019 15:13 VEE ACOSTA STUDENT Jan 07, 2019 17:32
[2019-01-07 15:14] LABS: ALANINE AMINOTRANSFERASE 22 U/L (0-55); ALBUMIN 4.4 GM/DL (3.2-4.5); ALKALINE PHOSPHATASE 102 U/L (40-136); AMYLASE 95 U/L (25-125); BILIRUBIN,TOTAL 0.6 MG/DL (0.1-1.0); BUN/CREATININE RATIO 13; CARBON DIOXIDE 23 MMOL/L (21-32); CHLORIDE 105 MMOL/L (98-107); CREATININE SERUM 0.93 MG/DL (0.60-1.30); GFR ESTIMATED > 60; GLUCOSE 123 MG/DL (70-105); LIPASE 32 U/L (8-78); POTASSIUM 3.6 MMOL/L (3.6-5.0); SODIUM 139 MMOL/L (135-145); TOTAL PROTEIN 7.8 GM/DL (6.4-8.2)
--- NOTE | 2019-01-07 15:21 | Diagnostic Imaging Report ---
INDICATION: Dyspnea and chest pain. TECHNIQUE: PA and lateral views of the chest were obtained. COMPARISON: 04/08/2018. FINDINGS: The heart size and pulmonary vascularity are within normal limits. The lungs are clear bilaterally. IMPRESSION: Unremarkable chest. Dictated by: Dictated on workstation # [id number]
[2019-01-07] MEDS ORDERED: NS 100 ML (IVPB) BAG IV ONE (16:00)
[2019-01-07] MEDS ORDERED: IOHEXOL 350 MG/ML 150 ML (OMNIPAQUE 350) VIAL IV ONE (16:00)
[2019-01-07] MEDS ORDERED: RECEIVED CONTRAST (Hold Metformin) IV SCH (16:00)
[2019-01-07] MEDS ORDERED: CATHETER FLUSH 10 ML SYR IV PRN (16:00)
[2019-01-07] MEDS ORDERED: NS IV 1000 ML 1,000 ML IV ONE (16:37)
--- NOTE | 2019-01-07 17:10 | Diagnostic Imaging Report ---
PROCEDURE: CT angiography of the chest with contrast. TECHNIQUE: Multiple contiguous axial images were obtained through the chest after uneventful bolus administration of intravenous contrast. 2D reconstructed CTA MIP acquisitions were also performed. INDICATION: Chest pain and left arm and shoulder pain. COMPARISON: Correlation is made with prior CT angiogram of the chest from 04/28/2017. FINDINGS: Evaluation of the pulmonary arterial system is without evidence of thromboembolism. No filling defects are seen within central, lobar, or segmental branches. Thoracic aorta is normal in caliber. No dissection is seen. No pericardial or pleural fluid is identified. 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 There is no pericardial or pleural fluid identified. 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 No infiltrates are seen. No nodule or mass is detected. Upper abdomen demonstrates generalized hepatic steatosis. IMPRESSION: Stable CT angiogram of the chest. There are no findings to suggest pulmonary embolism or thoracic aortic dissection. Dictated by: Dictated on workstation # [id number]
[2019-01-07 18:19] VITALS: BP 125/90
== END 2019-01-07 18:19 | disposition home or self-care (01) ==
LOC: EDUNIT# 14:27 → ER 14:30
DX: I48.91 Unspecified atrial fibrillation (principal); E78.00 Pure hypercholesterolemia, unspecified; I10 Essential (primary) hypertension; R07.89 Other chest pain; N64.4 Mastodynia; G43.909 Migraine, unspecified, not intractable, without status migrainosus; M41.9 Scoliosis, unspecified; F41.9 Anxiety disorder, unspecified; F32.9 Major depressive disorder, single episode, unspecified; Z80.3 Family history of malignant neoplasm of breast; Z82.49 Family history of ischemic heart disease and other diseases of the circulatory system; Z86.73 Personal history of transient ischemic attack (TIA), and cerebral infarction without residual deficits; Z88.5 Allergy status to narcotic agent
CPT/HCPCS: 36415; 71046; 71275; 80053; 82150; 83690; 83735; 83874; 83880; 84484; 85025; 85379; 85610; 85730; 93005; 93041

== ENCOUNTER → 2019-01-16 | Outpatient (CLI) | payer OTHER ==
--- NOTE | 2019-01-16 19:28 | Diagnostic Imaging Report ---
INDICATION: Left breast pain as well as green left nipple discharge. COMPARISON: Correlation is made with prior mammograms from 10/20/2014 and 05/03/2011. TECHNIQUE: 2D and 3D bilateral diagnostic mammography was performed with computer-aided detection (CAD) system. FINDINGS: Both breasts are heterogeneously dense, limiting the sensitivity of mammography. No mass is identified. No suspicious microcalcifications are seen. The axillae are unremarkable. No architectural distortion is seen. IMPRESSION: No mammographic features suspicious for malignancy are identified. Even so, sonographic interrogation of the retroareolar left breast due to nipple discharge is recommended and will be performed today. Evaluation of areas of pain could also be performed. ACR BI-RADS Category 0: Incomplete. (Needs additional imaging evaluation). Result letter will be mailed to the patient. Note: At least 10% of breast cancer is not imaged by mammography. Dictated by: Dictated on workstation # [id number]
--- NOTE | 2019-01-16 19:37 | Diagnostic Imaging Report ---
INDICATION: Left nipple discharge and left breast pain. FINDINGS: Sonographic interrogation of retroareolar aspect of the left breast was performed. There is some mild ductal ectasia present. However, no intraductal mass is identified. No intraductal debris is seen. No other abnormalities are detected. IMPRESSION: Mild retroareolar ductal ectasia. The study is otherwise unremarkable. ACR BI-RADS Category 2: Benign findings. Dictated by: Dictated on workstation # [id number]
== END ==
LOC: RAD 12:31
PROVIDERS: ATTEND Nurse Practitioner Primary Care
DX: N60.42 Mammary duct ectasia of left breast (principal); N64.3 Galactorrhea not associated with childbirth
CPT/HCPCS: 76642; 77066

== ENCOUNTER → 2019-02-12 | Outpatient (CLI) | payer OTHER ==
[~2019-02-12] MED LIST changes: +GADOBUTROL 7.5 MMOL/7.5 ML (GADAVIST) VIAL IV ONE
--- NOTE | 2019-02-12 13:30 | Diagnostic Imaging Report ---
PROCEDURE: MR imaging of the brain with and without contrast. TECHNIQUE: Multiplanar, multisequence MR imaging of the brain was performed with and without contrast. INDICATION: Headaches and dizziness. COMPARISON: Correlation is made with prior MRI of the brain from 11/21/2011. FINDINGS: The ventricles and sulci are within normal limits. No diffusion restriction is identified. Normal expected flow-voids within the carotid siphons are seen. No acute intra-axial or extra-axial hemorrhage is detected. The corpus callosum is unremarkable. The sella and parasellar structures are unremarkable. No abnormal enhancement is identified following contrast administration. Thin slice imaging through the sella was also performed with dynamic imaging. Pituitary gland appears unremarkable. Infundibulum is midline. No hypointense pituitary lesion is seen to suggest microadenoma. IMPRESSION: Unremarkable pre-and postcontrast MRI of the brain and pituitary. Dictated by: Dictated on workstation # [id number]
== END ==
LOC: RAD 09:27
PROVIDERS: ATTEND Surgery
DX: E22.1 Hyperprolactinemia (principal); R51 Headache
CPT/HCPCS: 36415; 70553; 84146; 84436; 84443; 84480

== ENCOUNTER 2019-02-26 15:35 | Emergency (ER) | payer SELFPAY ==
[~2019-02-26] VITALS: Ht 167.6 cm; Wt 81.6 kg
[~2019-02-26 15:35] MED LIST changes: -GADOBUTROL 7.5 MMOL/7.5 ML (GADAVIST) VIAL IV ONE
--- OUTSIDE RECORDS SUMMARY | 2019-02-26 15:53 | XMS REPORT ---
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 Name Role Phone Migration, Doctor Unavailable Unavailable PROBLEMS Type Condition ICD9-CM Code DPK99-DU Code Onset Dates Condition Status SNOMED Code Problem Recurrent major depressive disorder, in partial remission F33.41 Active 98271955 Problem Essential hypertension I10 Active 68425646 Problem Dysthymia F34.1 Active 84116317 Problem Anemia, unspecified type D64.9 Active 890416812 Problem Iron deficiency anemia, unspecified iron deficiency anemia type D50.9 Active 10681885 Problem Atrial tachycardia I47.1 Active 086216348 ALLERGIES No Information ENCOUNTERS Encounter Location Date Diagnosis [place] [id number] [place] [address] 73680- [address]292 March, [facility] [id number] [place] [address] 06860- 1076 Jan, Essential hypertension I10 and Recurrent major depressive disorder, in partial remission F33.41 [facility] [id number] [place] [address] 31927- 7054 Jan, [facility] [id number] [place] [address] 04458- 6437 Jan, [facility] [id number] [place] [address] 06238- 8954 Dec, [facility] [id number] [place] [address] 97528- 3109 Dec, [facility] [id number] [place] [address] 05434- 3122 Dec, [facility] [id number] [place] [address] 82770- 1412 Dec, [facility] [address] [place] [address] 14 Dec, 2018 Mastodynia N64.4 and Galactorrhea N64.3 [facility] [address] 13974- 1369 13 Dec, 2018 [facility] [address] 83395- 8097 Oct, [facility] [address] 258[address]0817 Apr, Acute bacterial conjunctivitis of left eye H10.32 and Allergic conjunctivitis of left eye H10.12 [place] [address] 27067- 4097 March, [facility] [address] 15274- 5983 March, [facility] [address] 90807- 7753 March, Atrial tachycardia I47.1 [place] [address] 54518- 8547 March, Palpitations R00.2 [place] [id number] [place] [address] 30893- 7052 March, [facility] [id number] [place] [address] 29949- 0917 Jan, [facility] [id number] [place] [address] 05893- 0049 Jan, [facility] [id number] [place] [address] 38120- 4251 Jul, [facility] [address] [address] Jun, Acute right eye pain H57.11 [facility] [id number] [place] [address] 47797- 7981 Jun, Dysthymia F34.1 [place] [id number] [place] [address] 56278- 8159 15 Apr, 2017 [place] [address] 04499- 9185 Apr, Syncope, unspecified syncope type R55 [place] [id number] [place] [address] 01940- 0832 Apr, Iron deficiency anemia, unspecified iron deficiency anemia type D50.9 [place] [id number] [place] [address] 43204- 4683 Apr, [place] [address] 31423- 9302 March, Anemia, unspecified type D64.9 [place] [id number] [place] [address] 41188- 5287 Jan, Acute non-recurrent maxillary sinusitis J01.00 [place] [id number] [place] [address] 59162- 2551 09 Jan, 2017 Lumbar strain, initial encounter S39.012A and Acute nasopharyngitis J00 [place] [id number] [place] [address] 69592- 6612 Oct, Dysthymia F34.1 [place] [id number] [place] [address] 71473- 5298 Aug, [place] [id number] [place] [address] 38457- 0571 Aug, [place] [id number] [place] [address] 90314- 4177 Apr, Encounter for other administrative examinations Z02.89 [place] [id number] [place] [address] 74956- 4815 07 Apr, 2016 Dental examination Z01.20 [place] [id number] [place] [address] 31229- 7453 11 Dec, 2015 GERD (gastroesophageal reflux disease) K21.9 and Hypokalemia E87.6 [facility] [id number] [place] [address] 87460- 0688 09 Dec, 2015 [facility] [id number] [place] [address] 58584 -9049 28 Nov, 2015 Candidal vaginitis B37.3 ; Rash R21 ; History of nipple discharge Z87.898 and Dysuria R30.0 [facility] [address] 19906- 4147 Sep, [facility] [address] [id number] 15 Aug, 2015 Encounter for dental examination Z01.20 [facility] [address] 38253- 5270 Aug, [facility] [address] 83541- 9193 Jun, [facility] [address] 53532- 9697 Jun, Uterine enlargement 621.2 [facility] [address] 33604- 2139 14 Feb, 2015 [facility] [address] 39005- 5966 Feb, [facility] [address] 45442- 3323 Jan, [facility] [id number] [place] [address] 49891- 5980 Jan, [facility] [address] 78510- 5864 Nov, [facility] [address] 90688- 0136 Nov, [facility] [address] 98836- 2503 Oct, [facility] [place] [facility] [address] [id number] [place] [address]- 3314 Oct, [facility] [place] [facility] [address] [id number] [place] 3[address] Oct, [facility] [place] [facility] [address] [id number] [place] [address]- 7953 Oct, [facility] [place] [facility] [address] [id number] [place] [address]- 9287 Oct, [facility] [place] [facility] [address] [id number] [place] [address]- 1682 Oct, [facility] [place] [facility] [address] [id number] [place] [address]- 8461 Sep, [facility] [place] [facility] [address] [id number] [place] [address]- 1588 Sep, [facility] [place] [facility] [address] [id number] [place] [address]- 5133 Sep, [facility] [place] [facility] [address] [id number] [place] [address]- 2336 Sep, [facility] [place] [facility] [address] [id number] [place] [address]- 5145 Sep, [facility] [place] [facility] [address] [id number] [address]- 7859 Sep, [facility] [place] [facility] [address] [id number] [place] [address]- 9456 Sep, [facility] [place] [facility] [address] [id number] [place] [address]- 6417 Sep, [facility] [place] [facility] [address] [id number] [place] [address]- 7290 Jun, [facility] [place] [facility] [address] [id number] [place] [address]- 9027 Jun, [facility] [place] [facility] [address] [address] 5776 Jun, [facility] [address] [place] [address]- 9896 March, [facility] [address] [address]- 5816 March, [facility] [address] [address]- 1797 Oct, [facility] [address] 8047 Oct, [facility] [address] [place] [address] 36260- 2333 Oct, [facility] [address] 6717 Oct, [facility] [address] [place] [address]- 9259 Aug, [facility] [address] [place] [address]- 3011 Aug, [facility] [address] [place] [address]- 2878 Apr, [facility] [address] [place] [address]- 6068 Apr, [facility] [address] [place] [address]- 6585 Jan, [facility] [id number] [address]- 5605 Jan, [facility] [address] [place] [address]- 7419 Oct, IMMUNIZATIONS No Known Immunizations SOCIAL HISTORY Never Assessed REASON FOR VISIT EMR-[facility] PLAN OF CARE VITAL SIGNS MEDICATIONS Medication Instructions Dosage Frequency Start Date End Date Duration Status HydrOXYzine Pamoate 25 mg take 1 capsule by Oral route every 6 hours PRN Jun, Active Flagyl 500 mg 1 tablet by Oral route 2 times per day for 7 days Oct Active RESULTS No Results PROCEDURES No Known procedures INSTRUCTIONS MEDICATIONS ADMINISTERED No Known Medications MEDICAL (GENERAL) HISTORY Type Description Date Medical History High Blood Pressure Medical History Heart Murmur Medical History Atrial Tachycardia Surgical History No know Surgical history Hospitalization History Cardiac related concerns but no diagnosis Hospitalization History Cardiac concerns 03/2018 Hospitalization History childbirth
--- NOTE | 2019-02-26 15:55 | ED Cardiac General ---
History of Present Illness General Chief Complaint: Cardiac/General Problems Stated Complaint: HIGH BLOOD PRESSURE Source: patient Exam Limitations: no limitations History of Present Illness Date Seen by Provider: Feb 26, 2019 Time Seen by Provider: 15:45 Initial Comments Here with report of high blood pressure that was apparently 190/100 at work today. She states that she felt a little dizzy and had blurred vision. Recently restarted on her blood pressure medicine of lisinopril but at 10 mg instead of where she was at 20 mg previously. Denies chest pain, breathing problems, nausea , vomiting or sweating. Denies other concerns currently. 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 ASA po CASHIER PAYMENTS RECEIVED: No Associated Systoms: No Diaphoresis, No Fever/Chills; Headaches; No Nausea/ Vomiting, No Shortness of Air, No Weakness Allergies and Home Medications Allergies Coded Allergies: morphine (Verified Allergy, Unknown, 04/27/17) Home Medications Cyclobenzaprine HCl 10 Mg Tablet, 10 MG PO Q8H PRN for neck spasm Prescribed by: DANA DON on 04/28/17 032 Diclofenac Sodium 50 Mg Tablet.dr, 50 MG PO Q6H PRN for neck/facial pain Prescribed by: DANA DON on 04/28/17328 Diclofenac Sodium 75 Mg Tablet.dr, 75 MG PO BID PRN for pain Prescribed by: RAEANN SILVA on 02/06/18 165 Famotidine 20 Mg Tablet, 20 MG PO BID Prescribed by: RAEANN SILVA on 01/03/16 174 Lisinopril 20 Mg Tablet, 20 MG PO DAILY Prescribed by: MARK GODOY on 04/03/18 1528 Orphenadrine Citrate 100 Mg Tablet.er, 100 MG PO BID PRN for SPASMS Prescribed by: RAEANN SILVA on 05/06/172027 Orphenadrine Citrate 100 Mg Tablet.er, 100 MG PO BID PRN for SPASMS Prescribed by: RAEANN SILVA on 02/06/18 165 Pantoprazole Sodium 40 Mg Tablet.dr, 40 MG PO DAILY Prescribed by: VIRAL CHILDS on 08/07/179 Paroxetine HCl 40 Mg Tablet, 40 MG PO DAILY, (Reported) Tramadol HCl 50 Mg Tablet, 50-100 MG PO Q4H PRN for PAIN-MILD TO MODERATE Prescribed by: RAEANN SILVA on 05/06/172027 Patient Home Medication List Home Medication List Reviewed: Yes Review of Systems Review of Systems Constitutional: see HPI; No chills, No fever EENTM: Blurred Vision; No Ear Pain Respiratory: Denies Cough, Denies Orthopnea, Denies Shortness of Air Cardiovascular: See HPI; Denies Chest Pain, Denies Edema Gastrointestinal: Denies Abdominal Pain, Denies Nausea, Denies Vomiting Genitourinary: No Symptoms Reported Musculoskeletal: no symptoms reported Skin: no symptoms reported Psychiatric/Neurological: No Symptoms Reported All Other Systems Reviewed Negative Unless Noted: Yes Past Dbnbdbn-Vnbpev-Kizmha Hx Past Med/Social Hx: Reviewed Nursing Past Med/Soc Hx Patient Social History Alcohol Use: Denies Use Recreational Drug Use: No Smoking Status: Never a Smoker 2nd Hand Smoke Exposure: No Recent Foreign Travel: No Contact w/Someone Who Travel: No Recent Hopitalizations: No Physical Abuse: No Sexual Abuse: No Immunizations Up To Date Tetanus Booster (TDap): More than 5yrs Date of Pneumonia Vaccine: Dec 30, 2015 Seasonal Allergies Seasonal Allergies: No Past Medical History Surgeries: Yes (WISDOM TEETH) Respiratory: No Cardiac: Yes (tachycardia) Atrial Fibrillation, High Cholesterol, Hypertension Neurological: Yes (OCCASIONAL HEADACHES) Concussion, Headaches /Migraines, Stroke 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 Disorders: No 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 Sexually Transmitted Disease: No Genitourinary: No Gastrointestinal: No Musculoskeletal: Yes (CHRONIC NECK PAIN) Scoliosis, Chronic Back Pain Endocrine: No HEENT: No Cancer: No Psychosocial: Yes Anxiety, Depression Integumentary: No Recent Skin Changes Blood Disorders: No Family Medical History Reviewed Nursing Family Hx Cardiovascular disease FH: breast cancer 19 MOTHER (METS) FH: lung cancer 19 FATHER FHx: mental retardation G8 BROTHER Myocardial infarction 19 FATHER (X2) Heart Disease, Cancer Physical Exam Vital Signs Vital Signs - First Documented 02/26/19 15:45 Temp 97.2 Pulse 106 Resp 18 B/P (MAP) 143/105 (118) Pulse Ox 100 Capillary Refill : NONE Height, Weight, BMI Height: 5'6.00" Weight: 180lbs. 5.0oz. 81.312624dl; 33.25 BMI Method:Stated General Appearance: No Apparent Distress, WD/WN HEENT: PERRL/EOMI, Pharynx Normal Neck: Non Tender, Supple Respiratory: Lungs Clear, Normal Breath Sounds Cardiovascular: Regular Rate, Rhythm, No Murmur Gastrointestinal: Non Tender, Soft Extremity: Normal Range of Motion, Non Tender Neurologic/Psychiatric: Alert, Oriented x3 Skin: Normal Color, Warm/Dry Progress/Results/Core Measures Results/Orders My Orders Orders - MARK GODOY MD Metoprolol Succinate (Xl) Tab (Toprol Xl (02/26/19 16:00) Lisinopril Tablet (Zestril Tablet) (02/26/19 16:00) Acetaminophen Tablet (Tylenol Tablet) (02/26/19 16:13) Medications Given in ED Current Medications Medications Dose Ordered Sig/Lyndsay Route Start Time Stop Time Status Last Admin Dose Admin Lisinopril 10 mg ONCE ONCE PO 02/26/19 16:00 02/26/19 16:01 DC 02/26/19 16:02 10 MG Metoprolol Succinate 25 mg ONCE ONCE PO 02/26/19 16:00 02/26/19 16:01 DC 02/26/19 16:02 25 MG Vital Signs/I&O 02/26/19 15:45 Temp 97.2 Pulse 106 Resp 18 B/P (MAP) 143/105 (118) Pulse Ox 100 Progress Progress Note : Progress Note Seen and evaluated. Lisinopril 10 mg by mouth ordered after we verified with the clinic what her dosing is. She typically takes 10 mg daily as confirmed by Dr. Gillis. Previously has been on 20 mg in the past. We will also give metoprolol XL 25 mg by mouth. Tylenol 1 g by mouth given for headache. Monitor patient. 1636: Overall doing better and blood pressure 148/99 with heart rate of 82. We will continue metoprolol as outpatient. Discharged home with return precautions. Patient verbalize understanding instructions and agreement with plan. Departure Impression Primary Impression: High blood pressure Qualified Codes: I10 - Essential (primary) hypertension Disposition: HOME, SELF-CARE Condition: Improved Departure-Patient Inst. Decision time for Depature: 16:38 Referrals: [facility] ([facility]) Primary Care Physician RENETTA CARPIO MD (Family) Primary Care Physician Patient Instructions: High Blood Pressure (DC) Add. Discharge Instructions: All discharge instructions reviewed with patient and/or family. Voiced understanding. Continue meds as previously prescribed. Add new prescription that you'll take twice daily. You'll start that tomorrow morning. Follow-up in the clinic within one week for recheck and further evaluation. Return for worse pain, fever, vomiting, weakness, breathing problems or other concerns as needed. Scripts Metoprolol Tartrate (Metoprolol Tartrate) 25 Mg Tablet 25 MG PO BID, #60 TAB Prov: MARK GODOY MD 02/26/19 Copy Copies To 1: RENETTA CARPIO MD, TIMOTHY D MD Feb 26, 2019 15:55
[2019-02-26] MEDS ORDERED: lisINopril 10 MG (PRINIVIL) TABLET PO ONE (16:00)
--- OUTSIDE RECORDS SUMMARY | 2019-02-26 16:01 | XMS REPORT | Continuity of Care Document ---
Author Author [facility] Address Unknown Phone Unavailable Allergies Active Description Code Type Severity Reaction Onset Reported/Identified Relationship to Patient Clinical Status Yes NKANo Known Allergies NKA Miscellaneous Allergy Mild N/A 03/19/2017 Yes morphine [id number] Drug Allergy Unknown N/A 04/27/2017 Medications There [...] MD 401.1 HYPERTENSION, BENIGN ESSENTIAL 02/17/2010 GRACIELA NATURAL GAS INSPECTOR, VLADISLAV A 307.81 HEADACHE, TENSION 02/17/2010 GRACIELA NATURAL GAS INSPECTOR, VLADISLAV A 311 DEPRESSIVE DISORDER NOS 02/17/2010 GRACIELA NATURAL GAS INSPECTOR, VLADISLAV A 401.1 HYPERTENSION, BENIGN ESSENTIAL 02/17/2010 GRACIELA NATURAL GAS INSPECTOR, VLADISLAV A 307.81 HEADACHE, TENSION 02/17/2010 GRACIELA NATURAL GAS INSPECTOR, VLADISLAV A 311 DEPRESSIVE DISORDER NOS 02/17/2010 GRACIELA NATURAL GAS INSPECTOR, VLADISLAV A 401.1 HYPERTENSION, BENIGN ESSENTIAL 02/17/2010 GRACIELA NATURAL GAS INSPECTOR, VLADISLAV A 307.81 HEADACHE, TENSION 02/17/2010 GRACIELA NATURAL GAS INSPECTOR, VLADISLAV A 311 DEPRESSIVE DISORDER NOS 02/17/2010 GRACIELA NATURAL GAS INSPECTOR, VLADISLAV A 401.1 HYPERTENSION, BENIGN ESSENTIAL 07/02/2011 [...] VASILE SARMIENTO DO Ot 784.0 HEADACHE 10/15/2014 GRACILEAVLADISLAV Elise APRN A 611.6 GALACTORRHEA NOT ASSOCIATED WITH CHILDBIRTH 10/15/2014 FLAVIA OWENS APRNIDI A 611.71 MASTODYNIA 10/15/2014 GRACIELA ELSIE VLADISLAV A V72.31 ANSWERER EXAM, ROUTINE 10/15/2014 GRACIELA NATURAL GAS INSPECTORVLADISLAV Elise A V73.81 HPV SCREENING 10/15/2014 GRACIELA MOTLEYArik VLADISLAV A V74.5 STD SCREEN 10/15/2014 GRACIELA MOTLEYArik VLADISLAV A V76.10 BREAST CANCER SCREENING 10/15/2014 GRACIELAVLADISLAV Elise APRN A V76.2 CERVICAL CANCER SCREENING (PAP SMEAR) 10/15/2014 GRACIELA MOTLEYArik VLADISLAV A 611.6 GALACTORRHEA NOT ASSOCIATED WITH CHILDBIRTH 10/15/2014 GRACIELAVLADISLAV Elise APRN A 611.71 MASTODYNIA 10/15/2014 GRACIELAVLADISLAV Elise APRN A V72.31 ANSWERER EXAM, ROUTINE 10/15/2014 GRACIELA NATURAL GAS INSPECTORVLADISLAV Elise A V73.81 HPV SCREENING 10/15/2014 GRACIELAVLADISLAV Elise APRN A V74.5 STD SCREEN 10/15/2014 GRACIELAVLADISLAV Elise APRN A V76.10 BREAST CANCER SCREENING 10/15/2014 GRACIELA NATURAL GAS INSPECTOR, VLADISLAV A V76.2 CERVICAL CANCER SCREENING (PAP SMEAR) 10/15/2014 GRACIELAArik ZIMMERMAN VLADISLAV A 611.6 GALACTORRHEA NOT ASSOCIATED WITH CHILDBIRTH 10/15/2014 GRACIELA NATURAL GAS INSPECTORVLADISLAV Elise A 611.71 MASTODYNIA 10/15/2014 GRACIELAArik ZIMMERMAN VLADISLAV A V72.31 ANSWERER EXAM, ROUTINE 10/15/2014 GRACIELAVLADISLAV Elise APRN A [...] APRN Ot 611.6 10/26/2014 GRACIELA VLADISLAV A NATURAL GAS INSPECTOR Ot 729.5 10/26/2014 GRACIELA VLADISLAV A NATURAL GAS INSPECTOR Ot 729.81 02/28/2015 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 Ot 599.0 URIN TRACT INFECTION NOS 02/28/2015 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 Ot 780.4 DIZZINESS AND GIDDINESS 02/28/2015 Ot 611.72 02/28/2015 Ot V16.3 02/28/2015 VLADISLAV OWENS A NATURAL GAS INSPECTOR Ot 611.6 02/28/2015 GRACIELA VLADISLAV A NATURAL GAS INSPECTOR Ot 729.5 02/28/2015 VLADISLAV OWENS A NATURAL GAS INSPECTOR Ot 729.81 03/15/2015 VLADISLAV OWENS APRN 112.3 CANDIDIASIS OF SKIN AND NAILS 05/12/2015 VASILE SARMIENTO DO Ot 307.81 TENSION HEADACHE 05/12/2015 VASILE SARMIENTO DO Ot 784.0 HEADACHE 07/01/2015 Ot 611.72 07/01/2015 Ot V16.3 07/01/2015 GRACIELA VLADISLAVGAUDENCIO Chavez APRN Ot 611.6 07/01/2015 GRACIELA VLADISLAV A NATURAL GAS INSPECTOR Ot 729.5 07/01/2015 GRACIELA VLADISLAV A NATURAL GAS INSPECTOR Ot 729.81 07/01/2015 VASILE SARMIENTO DO Ot 599.0 URIN TRACT INFECTION NOS 07/01/2015 VASILE SARMIENTO DO Ot 692.9 DERMATITIS NOS 07/01/2015 VASILE SARMIENTO DO Ot 723.1 CERVICALGIA 07/01/2015 VASILE SARMIENTO DO Ot 782.1 NONSPECIF SKIN ERUPT NEC 07/09/2015 Ot 611.72 07/09/2015 Ot V16.3 07/09/2015 VLADISLAV OWENS A NATURAL GAS INSPECTOR Ot 611.6 07/09/2015 VLADISLAV OWENS A NATURAL GAS INSPECTOR Ot 729.5 07/09/2015 VLADISLAV OWENS A NATURAL GAS INSPECTOR Ot 729.81 07/23/2015 Ot 611.72 07/23/2015 Ot V16.3 07/23/2015 VLADISLAV OWENS A NATURAL GAS INSPECTOR Ot 611.6 07/23/2015 VLADISLAV OWENS NATURAL GAS INSPECTOR Ot 729.5 07/23/2015 VLADISLAV OWENS NATURAL GAS INSPECTOR Ot 729.81 09/06/2015 Ot 611.72 09/06/2015 Ot V16.3 09/06/2015 VLADISLAV OWENS NATURAL GAS INSPECTOR Ot 611.6 09/06/2015 VLADISLAV OWENS NATURAL GAS INSPECTOR Ot 729.5 09/06/2015 VLADISLAV OWENS NATURAL GAS INSPECTOR Ot 729.81 09/06/2015 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 Ot R21 RASH AND OTHER NONSPECIFIC SKIN ERUPTION 10/01/2015 JENN TRIPLETT, LAUREN Ledesma Ot I10 ESSENTIAL (PRIMARY) HYPERTENSION 10/01/2015 JENN TRIPLETT, LAUREN Ledesma Ot K21.0 GASTRO-ESOPHAGEAL REFLUX DISEASE WITH ES 10/01/2015 JENN TRIPLETT, LAUREN Ledesma Ot R07.89 OTHER CHEST PAIN 10/01/2015 Ot 611.72 10/01/2015 Ot V16.3 10/01/2015 VLADISLAV OWENS APRN Ot 611.6 10/01/2015 VLADISLAV OWENS APRN Ot 729.5 10/01/2015 VLADISLAV OWENS NATURAL GAS INSPECTOR Ot 729.81 10/04/2015 JENN TRIPLETT, LAUREN Ledesma [...] 02/10/2016 Ot 611.72 02/10/2016 Ot V16.3 02/10/2016 LVADISLAV OWENS APRN Ot 611.6 02/10/2016 VLADISLAV OWENS APRN Ot 729.5 02/10/2016 VLADISLAV OWENS APRN Ot 729.81 02/11/2016 VIRAL CHILDS APRN Ot R21 03/09/2016 VASILE SARMIENTO DO Ot 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 03/09/2016 VASILE SARMIENTO DO Ot X58.XXXA EXPOSURE TO OTHER SPECIFIED FACTORS, INI 03/09/2016 VASILE SARMIENTO DO Ot Y92.009 [facility] PL[facility] IN [facility] NON-INSTITUT (PRIVATE 03/09/2016 VASILE SARMIENTO DO Ot [...] FAMILY HX- BREAST MALIG 06/22/2016 VLADISLAV OWENS NATURAL GAS INSPECTOR Ot 611.6 GALACTORRHEA-NONOBSTET 06/22/2016 GRACIELAFLAVIAVLADISLAV A NATURAL GAS INSPECTOR Ot 729.5 PAIN IN LIMB 06/22/2016 GRACIELAFLAVIAVLADISLAV A NATURAL GAS INSPECTOR Ot 729.81 SWELLING OF LIMB 06/22/2016 Ot 611.72 LUMP OR MASS IN BREAST 06/22/2016 Ot V16.3 FAMILY HX- BREAST MALIG 06/22/2016 GRACIELAFLAVIAVLADISLAV A NATURAL GAS INSPECTOR Ot 611.6 GALACTORRHEA-NONOBSTET 06/22/2016 GRACIELAFLAVIAVLADISLAV A NATURAL GAS INSPECTOR Ot 729.5 PAIN IN LIMB 06/22/2016 GRACIELA, VLADISLAV A NATURAL GAS INSPECTOR Ot 729.81 SWELLING OF LIMB 06/23/2016 VASILE SARMIENTO DO Ot 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 06/23/2016 VASILE SARMIENTO DO Ot X58.XXXA EXPOSURE TO OTHER SPECIFIED FACTORS, INI 06/23/2016 VASILE SARMIENTO DO Ot Y92.[address] IN [facility] NON-INSTIT[facility] (PRIVATE 06/23/2016 VASILE SARMIENTO DO Ot Y99.8 OTHER EXTERNAL CAUSE STATUS 06/23/2016 VASILE SARMIENTO DO Ot Z23 ENCOUNTER FOR IMMUNIZATION 03/19/2017 GRACIELAFLAVIAVLADISLAV A NATURAL GAS INSPECTOR Ot 611.6 GALACTORRHEA-NONOBSTET 03/19/2017 GRACIELA VLADISLAV A NATURAL GAS INSPECTOR Ot 729.5 PAIN IN LIMB 03/19/2017 GRACIELA VLADISLAV A NATURAL GAS INSPECTOR Ot 729.81 SWELLING OF LIMB 04/19/2017 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 Ot R00.0 TACHYCARDIA, UNSPECIFIED 04/19/2017 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 Ot R06.00 DYSPNEA, UNSPECIFIED 04/19/2017 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 Ot R07.89 OTHER CHEST PAIN 04/19/2017 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 Ot R51 HEADACHE 04/19/2017 GRACIELA VLADISLAV A NATURAL GAS INSPECTOR Ot 611.6 GALACTORRHEA-NONOBSTET 04/19/2017 GRACIELA, VLADISLAV A NATURAL GAS INSPECTOR Ot 729.5 PAIN IN LIMB 04/19/2017 VLADISLAV OWENS NATURAL GAS INSPECTOR Ot 729.81 SWELLING OF LIMB 04/19/2017 USMAN MISTRY MD Ot L23.7 ALLERGIC CONTACT DERMATITIS DUE TO PLANT 04/19/2017 USMAN MISTRY MD Ot R21 RASH AND OTHER NONSPECIFIC SKIN ERUPTION 04/20/2017 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 Ot R00.0 TACHYCARDIA, UNSPECIFIED 04/20/2017 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 Ot R06.00 DYSPNEA, UNSPECIFIED 04/20/2017 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 Ot R07.89 OTHER CHEST PAIN 04/20/2017 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 Ot R51 HEADACHE 04/20/2017 USMAN MISTRY MD Ot I10 ESSENTIAL (PRIMARY) HYPERTENSION 04/20/2017 USMAN MISTRY MD Ot R00.2 PALPITATIONS 04/20/2017 USMAN MISTRY MD T Ot R07.89 OTHER CHEST PAIN 04/20/2017 USMAN MISTRY MD T Ot R07.9 CHEST PAIN, UNSPECIFIED 04/20/2017 USMAN MISTRY MD T Ot R51 HEADACHE 04/21/2017 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 Ot R00.0 TACHYCARDIA, UNSPECIFIED 04/21/2017 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 Ot R06.00 DYSPNEA, UNSPECIFIED 04/21/2017 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 Ot R07.89 OTHER CHEST PAIN 04/21/2017 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 Ot R51 HEADACHE 04/24/2017 USMAN MISTRY MD [...] DON DO, Ot Y92.[address] IN [facility] (PRIVATE 04/28/2017 DANA DON DO Ot Y99.8 OTHER EXTERNAL CAUSE STATUS 04/28/2017 DANA DON DO, Ot Z79.899 OTHER NURSING HOME (CURRENT) DRUG THERAPY 04/28/2017 VLADISLAV OWENS NATURAL GAS INSPECTOR Ot 611.6 GALACTORRHEA-NONOBSTET 04/28/2017 VLADISLAV OWENS NATURAL GAS INSPECTOR Ot 729.5 PAIN IN LIMB 04/28/2017 VLADISLAV OWENS NATURAL GAS INSPECTOR Ot 729.81 SWELLING OF LIMB 04/28/2017 FEDE [...] DON DO, Ot Y92.[address] IN [facility] 04/29/2017 DANA DON DO Ot Y99.8 OTHER EXTERNAL CAUSE STATUS 04/29/2017 DANA DON DO, Ot Z79.899 OTHER [facility] (CURRENT) DRUG THERAPY 05/06/2017 RAEANN RAINES Ot [...] AND CEREB INFRC W 05/06/2017 VLADISLAV OWENS NATURAL GAS INSPECTOR Ot 611.6 GALACTORRHEA-NONOBSTET 05/06/2017 VLADISLAV OWENS NATURAL GAS INSPECTOR Ot 729.5 PAIN IN LIMB 05/06/2017 VLADISLAV OWENS NATURAL GAS INSPECTOR Ot 729.81 SWELLING OF LIMB 05/06/2017 FEDE TRIPLETT, USMAN Davis Ot L23.7 ALLERGIC CONTACT DERMATITIS DUE TO PLANT 05/06/2017 FEDE TRIPLETT, USMAN Davis Ot R21 RASH AND OTHER NONSPECIFIC SKIN ERUPTION 05/10/2017 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 Ot I10 ESSENTIAL (PRIMARY) HYPERTENSION 05/10/2017 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 Ot M54.2 CERVICALGIA 05/10/2017 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 Ot R51 HEADACHE 05/10/2017 VIRAL CHILDS APRN [...] AND CEREB INFRC W 08/07/2017 VLADISLAV OWENS NATURAL GAS INSPECTOR Ot 611.6 GALACTORRHEA-NONOBSTET 08/07/2017 VLADISLAV OWENS NATURAL GAS INSPECTOR Ot 729.5 PAIN IN LIMB 08/07/2017 VLADISLAV OWENS NATURAL GAS INSPECTOR Ot 729.81 SWELLING OF LIMB 08/07/2017 FEDE [...] SCOLIOSIS, SITE UNSPECI 08/07/2017 CHILDS, PETER J NATURAL GAS INSPECTOR Ot Z80.1 FAMILY HISTORY OF MALIG NEOPLASM OF TRAC 08/07/2017 VIRAL CHILDS APRN Ot Z82.49 FAMILY HX OF ISCHEM HEART DIS AND OTH DI 08/07/2017 FLAVIA OWENSGAUDENCIO Chavez NATURAL GAS INSPECTOR Ot 611.6 GALACTORRHEA-NONOBSTET 08/07/2017 GRACIELAFLAVIAVLADISLAV A NATURAL GAS INSPECTOR Ot 729.5 PAIN IN LIMB 08/07/2017 GRACIELA VLADISLAV Chavez NATURAL GAS INSPECTOR Ot 729.81 SWELLING OF LIMB 08/07/2017 FEDE [...] AND OTH DI 02/06/2018 FLAVIA OWENSGAUDENCIO Chavez NATURAL GAS INSPECTOR Ot 611.6 GALACTORRHEA-NONOBSTET 02/06/2018 GRACIELAFLAVIAVLADISLAV A NATURAL GAS INSPECTOR Ot 729.5 PAIN IN LIMB 02/06/2018 GRACIELA VLADISLAV Scott NATURAL GAS INSPECTOR Ot 729.81 SWELLING OF LIMB 02/06/2018 FEDE [...] Ot I10 ESSENTIAL (PRIMARY) HYPERTENSION 02/08/2018 RAEANN RAIENS Ot M25.512 PAIN IN LEFT SHOULDER 02/08/2018 [...] TO NARCOTIC AGENT STATUS 04/03/2018 VLADISLAV OWENS NATURAL GAS INSPECTOR Ot 611.6 GALACTORRHEA-NONOBSTET 04/03/2018 VLADISLAV OWENS NATURAL GAS INSPECTOR Ot 729.5 PAIN IN LIMB 04/03/2018 VLADISLAV OWENS NATURAL GAS INSPECTOR Ot 729.81 SWELLING OF LIMB 04/03/2018 FEDE TRIPLETT, USMAN Davis Ot L23.7 ALLERGIC [...] CATALINA TRIPLETT, SABRINA Griffith Ot R00.2 PALPITATIONS 04/08/2018 IMELDA TRIPLETT, RHONDA Fontaine Ot E78.00 PURE HYPERCHOLESTEROLEMIA, UNSPECIFIED 04/08/2018 RHONDA SEGURA MD Ot F32.9 MAJOR DEPRESSIVE DISORDER, SINGLE EPISOD 04/08/2018 RHONDA SEGURA MD Ot F41.9 ANXIETY DISORDER, UNSPECIFIED 04/08/2018 RHONDA SEGURA MD Ot G43.909 MIGRAINE, UNSP, NOT INTRACTABLE, WITHOUT 04/08/2018 RHONDA SEGURA MD Ot I10 ESSENTIAL (PRIMARY) HYPERTENSION 04/08/2018 RHONDA SEGURA MD Ot R00.2 PALPITATIONS 04/08/2018 RHONDA SEGURA MD Ot R07.89 OTHER CHEST PAIN 04/08/2018 RHONDA SEGURA MD Ot Z80.1 FAMILY HISTORY OF MALIG NEOPLASM OF TRAC 04/08/2018 RHONDA SEGURA MD Ot Z80.3 FAMILY HISTORY OF MALIGNANT NEOPLASM OF 04/08/2018 RHONDA SEGURA MD Ot Z82.49 FAMILY HX OF ISCHEM HEART DIS AND OTH DI 04/08/2018 RHONDA SEGURA MD Ot Z86.73 PRSNL HX OF TIA (TIA), AND CEREB INFRC W 04/08/2018 RHONDA SEGURA MD Ot Z88.5 ALLERGY STATUS TO NARCOTIC AGENT STATUS 04/10/2018 RHONDA SEGURA MD Ot E78.00 PURE HYPERCHOLESTEROLEMIA, UNSPECIFIED 04/10/2018 RHONDA [...] MALIG NEOPLASM OF TRAC 04/10/2018 RHONDA SEGURA MD Ot Z80.3 FAMILY HISTORY OF MALIGNANT NEOPLASM OF 04/10/2018 RHONDA SEGURA MD Ot Z82.49 FAMILY HX OF ISCHEM HEART DIS AND OTH DI 04/10/2018 RHONDA SEGURA MD Ot Z86.73 PRSNL HX OF TIA (TIA), AND CEREB INFRC W 04/10/2018 IMELDA TRIPLETT, RHONDA Fontaine Ot Z88.5 ALLERGY STATUS TO NARCOTIC AGENT STATUS 04/19/2018 Chapis HENRIQUEZ MD Ot I10 ESSENTIAL (PRIMARY) HYPERTENSION 04/19/2018 FLORENCE TRIPLETT, Chapis FISHER Ot R00.2 PALPITATIONS 04/19/2018 FLORENCE TRIPLETT, Chapis FISHER Ot R06.02 SHORTNESS OF BREATH 04/19/2018 FLORENCE TRIPLETT, Chapis FISHER Ot R07.89 OTHER CHEST PAIN 04/19/2018 FLORENCE TRIPLETT, Chapis FISHER Ot R53.83 OTHER FATIGUE 04/19/2018 Chapis HENRIQUEZ MD Ot I10 ESSENTIAL (PRIMARY) HYPERTENSION 04/19/2018 FLORENCE TRIPLETT, Chapis FISHER Ot R00.2 PALPITATIONS 04/19/2018 FLORENCE TRIPLETT, Chapis FISHER Ot R06.02 SHORTNESS OF BREATH 04/19/2018 Chapis HENRIQUEZ MD Ot R07.89 OTHER CHEST PAIN 04/19/2018 FLORENCE TRIPLETT, Chapis FISHER Ot R53.83 OTHER FATIGUE 07/17/2018 RAEANN RAINES Ot E78.00 PURE HYPERCHOLESTEROLEMIA, UNSPECIFIED 07/17/2018 RAEANN RAINES Ot F32.9 MAJOR DEPRESSIVE DISORDER, SINGLE EPISOD 07/17/2018 RAEANN RAINES Ot F41.9 ANXIETY DISORDER, UNSPECIFIED 07/17/2018 RAEANN RAINES Ot G43.909 MIGRAINE, UNSP, NOT [...] Z88.5 ALLERGY STATUS TO NARCOTIC AGENT STATUS 01/07/2019 MARK GODOY MD Ot E78.00 PURE HYPERCHOLESTEROLEMIA, UNSPECIFIED 01/07/2019 MARK GODOY MD Ot F32.9 MAJOR DEPRESSIVE DISORDER, SINGLE EPISOD 01/07/2019 MARK GODOY MD Ot F41.9 ANXIETY DISORDER, UNSPECIFIED 01/07/2019 MARK GODOY MD D Ot G43.909 MIGRAINE, UNSP, NOT INTRACTABLE, WITHOUT 01/07/2019 PIETER GODOY MDOTHY D Ot I10 ESSENTIAL (PRIMARY) HYPERTENSION 01/07/2019 MARK GODOY MD Ot I48.91 UNSPECIFIED ATRIAL FIBRILLATION 01/07/2019 MARK GODOY MD Ot M41.9 SCOLIOSIS, UNSPECIFIED 01/07/2019 MARK GODOY MD Ot N64.4 MASTODYNIA 01/07/2019 MARK GODOY MD Ot R07.89 OTHER CHEST PAIN 01/07/2019 MARK GODOY MD Ot Z80.3 FAMILY HISTORY OF MALIGNANT NEOPLASM OF 01/07/2019 MARK GODOY MD Ot Z82.49 FAMILY HX OF ISCHEM HEART DIS AND OTH DI 01/07/2019 MARK GODOY MD Ot Z86.73 PRSNL HX OF TIA (TIA), AND CEREB INFRC W 01/07/2019 MARK GODOY MD Ot Z88.5 ALLERGY STATUS TO NARCOTIC AGENT STATUS 01/09/2019 MARK GODOY MD Ot E78.00 PURE HYPERCHOLESTEROLEMIA, UNSPECIFIED 01/09/2019 MARK GODOY MD Ot F32.9 MAJOR DEPRESSIVE DISORDER, SINGLE EPISOD 01/09/2019 MARK GODOY MD D Ot F41.9 ANXIETY DISORDER, UNSPECIFIED 01/09/2019 MARK GODOY MD D Ot G43.909 MIGRAINE, UNSP, NOT INTRACTABLE, WITHOUT 01/09/2019 MARK GODOY MD, Ot I10 ESSENTIAL (PRIMARY) HYPERTENSION 01/09/2019 MARK GODOY MD Ot I48.91 UNSPECIFIED ATRIAL FIBRILLATION 01/09/2019 MARK GODOY MD, Ot M41.9 SCOLIOSIS, UNSPECIFIED 01/09/2019 MARK GODOY MD Ot N64.4 MASTODYNIA 01/09/2019 MARK GODOY MD, Ot R07.89 OTHER CHEST PAIN 01/09/2019 MARK GODOY MD, Ot Z80.3 FAMILY HISTORY OF MALIGNANT NEOPLASM OF 01/09/2019 MARK GODOY MD, Ot Z82.49 FAMILY HX OF ISCHEM HEART DIS AND OTH DI 01/09/2019 MARK GODOY MD, Ot Z86.73 PRSNL HX OF TIA (TIA), AND CEREB INFRC W 01/09/2019 MARK GODOY MD, Ot Z88.5 ALLERGY STATUS TO NARCOTIC AGENT STATUS 01/09/2019 VLADISLAV OWENS NATURAL GAS INSPECTOR Ot 611.6 GALACTORRHEA-NONOBSTET 01/09/2019 VLADISLAV OWENS NATURAL GAS INSPECTOR Ot 729.5 PAIN IN LIMB 01/09/2019 VLADISLAV OWENS NATURAL GAS INSPECTOR Ot 729.81 SWELLING OF LIMB 01/09/2019 USMAN MISTRY MD Ot L23.7 ALLERGIC CONTACT DERMATITIS DUE TO PLANT 01/09/2019 USMAN MISTRY MD Ot R21 RASH AND OTHER NONSPECIFIC SKIN ERUPTION 01/09/2019 CATALINA TRIPLETT, SABRINA Griffith Ot R00.2 PALPITATIONS 01/09/2019 Chapis HENRIQUEZ MD Ot I10 ESSENTIAL (PRIMARY) HYPERTENSION 01/09/2019 Chapis HENRIQUEZ MD Ot R00.2 PALPITATIONS 01/09/2019 Chapis HENRIQUEZ MD Ot R06.02 SHORTNESS OF BREATH 01/09/2019 Chapis HENRIQUEZ MD Ot R07.89 OTHER CHEST PAIN 01/09/2019 Chapis HENRIQUEZ MD Ot R53.83 OTHER FATIGUE 01/16/2019 MARK GODOY MD Ot E78.00 PURE HYPERCHOLESTEROLEMIA, UNSPECIFIED 01/16/2019 MARK GODOY MD Ot F32.9 MAJOR DEPRESSIVE DISORDER, SINGLE EPISOD 01/16/2019 MARK GODOY MD, Ot F41.9 ANXIETY DISORDER, UNSPECIFIED 01/16/2019 MARK GODOY MD Ot G43.909 MIGRAINE, UNSP, NOT INTRACTABLE, WITHOUT 01/16/2019 MARK GODOY MD Ot I10 ESSENTIAL (PRIMARY) HYPERTENSION 01/16/2019 MARK GODOY MD Ot I48.91 UNSPECIFIED ATRIAL FIBRILLATION 01/16/2019 MARK GODOY MD, Ot M41.9 SCOLIOSIS, UNSPECIFIED 01/16/2019 MARK GODOY MD, Ot N64.4 MASTODYNIA 01/16/2019 MARK GODOY MD Ot R07.89 OTHER CHEST PAIN 01/16/2019 MARK GODOY MD Ot Z80.3 FAMILY HISTORY OF MALIGNANT NEOPLASM OF 01/16/2019 MARK GODOY MD Ot Z82.49 FAMILY HX OF ISCHEM HEART DIS AND OTH DI 01/16/2019 MARK GODOY MD, Ot Z86.73 PRSNL HX OF TIA (TIA), AND CEREB INFRC W 01/16/2019 MARK GODOY MD, Ot Z88.5 ALLERGY STATUS TO NARCOTIC AGENT STATUS 01/16/2019 VLADISLAV OWENS NATURAL GAS INSPECTOR Ot 611.6 GALACTORRHEA-NONOBSTET 01/16/2019 VLADISLAV OWENS NATURAL GAS INSPECTOR Ot 729.5 PAIN IN LIMB 01/16/2019 VLADISLAV OWENS NATURAL GAS INSPECTOR Ot 729.81 SWELLING OF LIMB 01/16/2019 FEDE TRIPLETT, USMAN Davis Ot L23.7 ALLERGIC CONTACT DERMATITIS DUE TO PLANT 01/16/2019 USMAN MISTRY MD Ot R21 RASH AND OTHER NONSPECIFIC SKIN ERUPTION 01/16/2019 CATALINA TRIPLETT, SABRINA Griffith Ot R00.2 PALPITATIONS 01/16/2019 Chapis HENRIQUEZ MD Ot I10 ESSENTIAL (PRIMARY) HYPERTENSION 01/16/2019 Chapis HENRIQUEZ MD Ot R00.2 PALPITATIONS 01/16/2019 Chapis HENRIQUEZ MD Ot R06.02 SHORTNESS OF BREATH 01/16/2019 FLORENCE TRIPLETT, Chapis FISHER Ot R07.89 OTHER CHEST PAIN 01/16/2019 FLORENCE TRIPLETT, Chapis FISHER Ot R53.83 OTHER FATIGUE 01/19/2019 AURELIANO AN APRN Ot 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 01/19/2019 AURELIANO AN APRN Ot N64.3 GALACTORRHEA NOT ASSOCIATED WITH CHILDBI 02/12/2019 VLADISLAV OWENS NATURAL GAS INSPECTOR Ot 611.6 GALACTORRHEA-NONOBSTET 02/12/2019 VLADISLAV OWENS NATURAL GAS INSPECTOR Ot 729.5 PAIN IN LIMB 02/12/2019 VLADISLAV OWENS NATURAL GAS INSPECTOR Ot 729.81 SWELLING OF LIMB 02/12/2019 FEDE TRIPLETT, USMAN Davis Ot L23.7 ALLERGIC CONTACT DERMATITIS DUE TO PLANT 02/12/2019 FEDE TRIPLETT, USMAN Davis Ot R21 RASH AND OTHER NONSPECIFIC SKIN ERUPTION 02/12/2019 CATALINA TRIPLETT, SABRINA Griffith Ot R00.2 PALPITATIONS 02/12/2019 Chapis HENRIQUEZ MD Ot I10 ESSENTIAL (PRIMARY) HYPERTENSION 02/12/2019 FLORENCE TRIPLETT, Chapis FISHER Ot R00.2 PALPITATIONS 02/12/2019 Chapis HENRIQUEZ MD Ot R06.02 SHORTNESS OF BREATH 02/12/2019 Chapis HENRIQUEZ MD Ot R07.89 OTHER CHEST PAIN 02/12/2019 Chapis HENRIQUEZ MD Ot R53.83 OTHER FATIGUE 02/12/2019 AURELIANO AN APRN Ot 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 02/12/2019 AURELIANO AN APRN Ot N64.3 GALACTORRHEA NOT ASSOCIATED WITH CHILDBI 02/14/2019 RAMON BUTLER DO Ot E22.1 HYPERPROLACTINEMIA 02/14/2019 RAMON BUTLER DO Ot R51 HEADACHE 02/18/2019 RAMON BUTLER DO Ot E22.1 HYPERPROLACTINEMIA 02/18/2019 RAMON BUTLER DO Ot R51 HEADACHE 02/24/2019 RAMON BUTLER DO Ot E22.1 HYPERPROLACTINEMIA 02/24/2019 [place] RAMON GARDUNO Ot R51 HEADACHE Procedures Code Description Performed By Performed On 99.10 INJECT/INFUSE THROMBOLYTIC AGENT 11/20/2011 14064 ROUTINE VENIPUNCTURE 11/10/2013 [id number] GFR CALC (RESULT ONLY) 11/10/2013 39587 CMP 11/10/2013 00561 LIPID PANEL 11/10/2013 95900 MAMMOGRAM DX, ABHINAV 10/15/2014 80950 GC/CHLAM PROBE (STATE) 10/15/2014 38585 PAP SMEAR 10/15/2014 Q0091 PAP SMEAR OBTAIN SMEAR 10/15/2014 14841 TRICHOMONAS (IN-HOUSE) 10/15/2014 73286 CULTURE UROGENITAL 10/18/2014 43852 ROUTINE VENIPUNCTURE 10/29/2014 33091 PROLACTIN 10/29/2014 40312 TSH 10/29/2014 06752 TRICHOMONAS (IN-HOUSE) 03/15/2015 05415 CULTURE UROGENITAL 03/16/2015 74010 GC/CHLAM PROBE (STATE) 03/16/2015 Results Test Result [...] automated white blood cell (WBC) differential - 01/07/19 14:45 Blood leukocytes automated count (number/volume) 7.4 10*3/uL 4.3-11.0 Blood erythrocytes automated count (number/volume) 4.96 10*6/uL 4.35-5.85 Venous blood hemoglobin measurement (mass/volume) 12.2 g/dL 11.5-16.0 Blood hematocrit (volume fraction) 39 % 35-52 Automated erythrocyte mean corpuscular volume 79 [foz_us] 80-99 Automated erythrocyte mean corpuscular hemoglobin (mass per erythrocyte) 25 pg 25-34 Automated erythrocyte mean corpuscular hemoglobin concentration measurement ( mass/volume) 31 g/dL 32-36 Automated erythrocyte distribution width ratio 18.9 % 10.0-14.5 Automated blood platelet count (count/volume) 290 10*3/uL 130-400 Automated blood platelet mean volume measurement 10.6 [foz_us] 7.4-10.4 Automated blood neutrophils/100 leukocytes 55 % 42-75 Automated blood lymphocytes/100 leukocytes 35 % 12-44 Blood monocytes/100 leukocytes 5 % 0-12 Automated blood eosinophils/100 leukocytes 5 % 0-10 Automated blood basophils/100 leukocytes 1 % 0-10 Blood neutrophils automated count (number/volume) 4.0 10*3 1.8-7.8 Blood lymphocytes automated count (number/volume) 2.6 10*3 1.0-4.0 Blood monocytes automated count (number/volume) 0.3 10*3 0.0-1.0 Automated eosinophil count 0.4 10*3/uL 0.0-0.3 Automated blood basophil count (count/volume) 0.1 10*3/uL 0.0-0.1 PT panel in platelet poor plasma by coagulation assay - 01/07/19 14:45 Prothrombin time (PT) in platelet poor plasma by coagulation assay 13.0 s 12.2-14.7 INR in platelet poor plasma or blood by coagulation assay 1.0 0.8-1.4 Activated partial thromboplastin time (aPTT) in platelet poor plasma bycoagulation assay - 01/07/19 14:45 Activated partial thromboplastin time (aPTT) in platelet poor plasma bycoagulation assay 28 s 24-35 Fibrin D-dimer FEU measurement in platelet poor plasma (mass/volume) - 14:45 Fibrin D-dimer FEU measurement in platelet poor plasma (mass/volume) 0.50 ug/mL 0.00-0.49 Comprehensive metabolic panel - 01/07/19 14:45 Serum or plasma sodium measurement (moles/volume) 139 mmol/L 135-145 Serum or plasma potassium measurement (moles/volume) 3.6 mmol/L 3.6-5.0 Serum or plasma chloride measurement (moles/volume) 105 mmol/L 98-107 Carbon dioxide 23 mmol/L 21-32 Serum or plasma anion gap determination (moles/volume) 11 mmol/L 5-14 Serum or plasma urea nitrogen measurement (mass/volume) 12 mg/dL 7-18 Serum or plasma creatinine measurement (mass/volume) 0.93 mg/dL 0.60-1.30 Serum or plasma urea nitrogen/creatinine mass ratio 13 NRG Serum or plasma creatinine measurement with calculation of estimated glomerular filtration rate > NRG Serum or plasma glucose measurement (mass/volume) 123 mg/dL 70-105 Serum or plasma calcium measurement (mass/volume) 10.0 mg/dL 8.5-10.1 Serum or plasma total bilirubin measurement (mass/volume) 0.6 mg/dL 0.1-1.0 Serum or plasma alkaline phosphatase measurement (enzymatic activity/volume) 102 U/L 40-136 Serum or plasma aspartate aminotransferase measurement (enzymatic activity/ volume) 26 U/L 5-34 Serum or plasma alanine aminotransferase measurement (enzymatic activity/volume ) 22 U/L 0-55 Serum or plasma protein measurement (mass/volume) 7.8 g/dL 6.4-8.2 Serum or plasma albumin measurement (mass/volume) 4.4 g/dL 3.2-4.5 CALCIUM CORRECTED 9.7 mg/dL 8.5-10.1 Magnesium - 02/12/19 14:45 Magnesium 2.0 mg/dL 1.8-2.4 Serum or plasma troponin i.cardiac measurement (mass/volume) - 01/07/19 14:45 Serum or plasma troponin i.cardiac measurement (mass/volume) < ng/ mL <0.028 Myoglobin, serum - 01/07/19 14:45 Myoglobin, serum 42.0 ng/mL 10.0-92.0 Serum or plasma amylase measurement (enzymatic activity/volume) - 01/07/19 14: 45 Serum or plasma amylase measurement (enzymatic activity/volume) 95 U /L 25-125 Lipase - 01/07/19 14:45 Lipase 32 U/L 8-78 Serum or plasma lithium measurement (moles/volume) - 01/07/19 14:45 BNP level < pg/mL <100.0 Encounters ACCT No. Visit Date/Time Discharge Status Pt. Type Provider Facility Loc./Unit Complaint [id number] 03/15/2015 17:47:00 03/15/2015 23:59:59 CLS Outpatient VLADISLAV OWENS APRN [id number] 10/15/2014 10:50:00 10/15/2014 23:59:59 CLS Outpatient VLADISLAV OWENS APRN [id number] 10/15/2014 10:50:00 10/15/2014 23:59:59 CLS Outpatient VLADISLAV OWENS APRN [id number] 11/10/2013 08:20:00 11/10/2013 23:59:59 CLS Outpatient RENETTA CARPIO MD [id number] 08/29/2013 15:10:00 08/29/2013 23:59:59 CLS Outpatient CONSTANTIN MCNAIR DDS [id number] 02/20/2012 09:24:00 Document Registration [id number] 04/25/2017 09:12:00 Document Registration [id number] 02/20/2019 09:40:00 02/20/2019 23:59:59 CLS Outpatient RENETTA CARPIO MD [facility] [id number] 04/05/2018 13:20:00 Document Registration [id number] 02/12/2019 09:27:00 02/12/2019 23:59:59 CLS Outpatient RAMON BUTLER DO [facility] RAD ELEVATED PROLACTIN, GALDACTORHEA [id number] 01/16/2019 12:31:00 01/16/2019 23:59:59 CLS Outpatient AURELIANO AN APRN [facility] RAD MASTODYNIA [id number] 01/07/2019 14:30:00 01/07/2019 18:19:00 DIS Emergency MARK GODOY MD [facility] ER CHEST PAIN [id number] 05/20/2018 08:00:00 05/20/2018 23:59:59 CLS Preadmit Chapis HENRIQUEZ MD [facility] CARD SOB,PALPITATIONS [id number] 04/19/2018 09:00:00 04/19/2018 23:59:59 CLS Preadmit Chapis HENRIQUEZ MD [facility] CARD PALPITATIONS,SOB [id number] 04/18/2018 12:32:00 04/18/2018 23:59:59 CLS Outpatient Chapis HENRIQUEZ MD [facility] CARD ANTERIOR CHEST WALL PAIN ,FATIGUE,SOB [id number] 04/08/2018 12:50:00 04/08/2018 17:40:00 DIS Emergency RHONDA SEGURA MD [facility] ER IRREG HEARTRATE,WEAK [id number] 04/04/2018 11:36:00 04/04/2018 23:59:59 CLS Outpatient SABRINA ARNOLD MD [facility] CARD R00.2 PALPITATIONS [id number] 04/03/2018 11:46:00 04/03/2018 15:38:00 DIS Emergency MARK GODOY MD [facility] ER COUGH/HEART FLUTTERING [id number] 02/06/2018 13:30:00 02/06/2018 17:14:00 DIS Emergency RAEANN RAINES [facility] ER OFF BALANCE [id number] 08/07/2017 20:01:00 08/07/2017 22:34:00 DIS Emergency VIRAL CHILDS APRN [facility] ER PT FEELS LIKE SOMETHING IS STUCK IN HER THROAT [id number] 05/10/2017 13:13:00 05/10/2017 15:05:00 DIS Emergency VIRAL CHILDS APRN [facility] ER LEFT SIDE HEAD/NECK/ SHOULDER PAIN [id number] 05/06/2017 18:33:00 05/06/2017 20:33:00 DIS Emergency RAEANN RAINES [facility] ER HEADACHE/NECK PAIN [id number] 04/27/2017 23:38:00 04/28/2017 03:37:00 DIS Emergency DANA DON DO [facility] ER PASSED OUT,HEAD RT CHECK PAINFUL [id number] 04/20/2017 20:57:00 04/20/2017 22:28:00 DIS Emergency FEDE TRIPLETT, USMAN Davis [facility] ER PALPITATIONS/SOB/ TIGHT IN CHEST/SWELLING/HEADACHE [id number] 04/19/2017 14:04:00 04/19/2017 17:29:00 DIS Emergency VIRAL CHILDS APRN [facility] ER RAPID HEART RATE FATIGUE HEADACHE [id number] 03/19/2017 12:55:00 03/19/2017 23:59:59 CLS Emergency USMAN MISTRY MD [facility] ER RASH/POSS POISON VALENTINE [id number] 03/09/2016 04:39:00 03/09/2016 05:12:00 DIS Emergency VASILE SARMIENTO DO [facility] ER FO IN RT EYE [id number] 01/05/2016 01:10:00 01/05/2016 02:35:00 DIS Emergency MARK GODOY MD [facility] ER PAIN ALL OVER,VOMITING ,CHILLS [id number] 01/03/2016 14:29:00 01/03/2016 18:20:00 DIS Emergency RAEANN RAINES [facility] ER GENERAL PAIN/SOA [id number] 10/01/2015 13:19:00 10/01/2015 15:43:00 DIS Emergency JENN TRIPLETT, LAUREN Ledesma [facility] ER CHEST PAIN [id number] 09/06/2015 12:58:00 09/06/2015 13:50:00 DIS 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 RASH/SKIN ISSUES [id number] 07/01/2015 07:27:00 07/01/2015 08:54:00 DIS Emergency GUILLERMINA VASILE K [facility] ER BACK PAIN;RASH [id number] 05/12/2015 02:43:00 05/12/2015 04:16:00 DIS Emergency GUILLERMINAVASILE Venegas DO [facility] ER HEAD ACHE [id number] 02/28/2015 20:05:00 02/28/2015 21:25:00 DIS 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 DIZZINESS,LETHARGIC [id number] 10/20/2014 11:55:00 10/20/2014 23:59:59 CLS Outpatient VLADISLAV OWENS APRN [facility] RAD BILATERAL DUCTAL PAIN AND SWELLING [id number] 10/12/2014 13:33:00 10/12/2014 15:13:00 DIS Emergency VASILE SARMIENTO DO [facility] ER HEADACHE BREAST DISCHARGE/ PAIN [id number] 07/08/2014 22:37:00 07/09/2014 12:30:00 DIS Inpatient PIERCE TRIPLETT, KEYLA Elise [facility] 4TH LEFT SIDED NUMBNESS; HEADACHE [id number] 07/02/2014 12:15:00 07/02/2014 14:24:00 DIS Emergency VASILE SARMIENTO DO [facility] ER HEART FLUTTERING [id number] 03/25/2014 17:37:00 03/25/2014 18:46:00 DIS Emergency MARK GODOY MD [facility] ER BACK PAIN [id number] 02/19/2014 18:28:00 02/19/2014 20:47:00 DIS Emergency RAEANN RAINES [facility] ER BACK PAIN [id number] 06/22/2016 13:59:00 Document Registration [id number] 06/22/2016 13:59:00 Document Registration [id number] 12/29/2015 01:40:00 Document Registration [id number] 11/23/2011 13:15:00 Document Registration [id number] 11/20/2011 21:45:00 Document Registration [id number] 07/02/2011 03:16:00 Document Registration [id number] 05/03/2011 09:02:00 Document Registration [id number] 09/23/2008 14:45:00 Document Registration
[2019-02-26] MEDS ORDERED: ACETAMINOPHEN 500 MG TAB (TYLENOL) PO STA (16:13)
[2019-02-26] MEDS ORDERED: METO-333 PO (16:40)
[2019-02-26 16:47] VITALS: BP 130/92
== END 2019-02-26 16:46 | disposition home or self-care (01) ==
LOC: EDUNIT# 15:35 → ER 15:36
DX: I10 Essential (primary) hypertension (principal); I48.91 Unspecified atrial fibrillation; E78.00 Pure hypercholesterolemia, unspecified; M41.9 Scoliosis, unspecified; F41.9 Anxiety disorder, unspecified; F32.9 Major depressive disorder, single episode, unspecified; G43.909 Migraine, unspecified, not intractable, without status migrainosus; Z88.5 Allergy status to narcotic agent; Z82.49 Family history of ischemic heart disease and other diseases of the circulatory system; Z80.3 Family history of malignant neoplasm of breast; Z80.1 Family history of malignant neoplasm of trachea, bronchus and lung; Z86.73 Personal history of transient ischemic attack (TIA), and cerebral infarction without residual deficits
CPT/HCPCS: 99283

== ENCOUNTER 2019-11-27 19:52 | Emergency (ER) | payer SELFPAY ==
[~2019-11-27] VITALS: Ht 167 cm; Wt 81.0 kg
[~2019-11-27 19:52] MED LIST changes: +METO-333 PO; +TRM50T PO
--- NOTE | 2019-11-27 20:44 | Diagnostic Imaging Report ---
INDICATION: Right knee pain COMPARISON: None FINDINGS: 3 views of the right knee demonstrate no fracture or dislocation. Articular surfaces are normal. There is a small suprapatellar joint effusion. IMPRESSION: Small joint effusion without fracture or dislocation Dictated by: Dictated on workstation # [id number]
--- NOTE | 2019-11-27 21:04 | ED Lower Extremity ---
General Chief Complaint: Lower Extremity Stated Complaint: RT KNEE PAIN Nursing Triage Note: Pt ambulates to triage with c/o right knee pain x 2 months that is worse today. 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 Pt is ablwe to walk on affected extremity but has increased pain. Nursing Sepsis Screen: No Definite Risk History of Present Illness Date Seen by Provider: Nov 27, 2019 Time Seen by Provider: 20:20 Initial Comments 49-year-old female presents for chronic right knee pain that became acutely worse at 1800 today. She denies an injury. She's had no previous surgeries on her right knee. She does take Motrin on occasion but none in the last 24 hours. Onset: just prior to arrival Pain/Injury Location: right knee Method of Injury: unknown Allergies and Home Medications Allergies Coded Allergies: morphine (Verified Allergy, Unknown, 04/27/17) Home Medications Cyclobenzaprine HCl 10 Mg Tablet, 10 MG PO Q8H PRN for neck spasm Prescribed by: DANA DON on 04/28/17 032 Diclofenac Sodium 50 Mg Tablet.dr, 50 MG PO Q6H PRN for neck/facial pain Prescribed by: DANA DON on 04/28/17 032 Diclofenac Sodium 75 Mg Tablet.dr, 75 MG PO BID PRN for pain Prescribed by: RAEANN SILVA on 02/06/18 165 Famotidine 20 Mg Tablet, 20 MG PO BID Prescribed by: RAEANN SILVA on 01/03/16 1742 Lisinopril 20 Mg Tablet, 20 MG PO DAILY Prescribed by: MARK GODOY on 04/03/18 1528 Metoprolol Tartrate 25 Mg Tablet, 25 MG PO BID Prescribed by: MARK GODOY on 02/26/19 1640 Orphenadrine Citrate 100 Mg Tablet.er, 100 MG PO BID PRN for SPASMS Prescribed by: RAEANN SILVA on 05/06/17 202 Orphenadrine Citrate 100 Mg Tablet.er, 100 MG PO BID PRN for SPASMS Prescribed by: RAEANN SILVA on 02/06/18 165 Pantoprazole Sodium 40 Mg Tablet.dr, 40 MG PO DAILY Prescribed by: VIRAL CHILDS on 08/07/172208 Paroxetine HCl 40 Mg Tablet, 40 MG PO DAILY, (Reported) Tramadol HCl 50 Mg Tablet, 50-100 MG PO Q4H PRN for PAIN-MILD TO MODERATE Prescribed by: RAEANN SILVA on 05/06/172027 Patient Home Medication List Home Medication List Reviewed: Yes Review of Systems Constitutional: no symptoms reported, see HPI Musculoskeletal: see HPI, joint pain (right knee) All Other Systems Reviewed Negative Unless Noted: Yes Past Itzwxoj-Hczcby-Qfzmek Hx Past Med/Social Hx: Reviewed Nursing Past Med/Soc Hx Patient Social History Alcohol Use: Denies Use Recreational Drug Use: No Smoking Status: Never a Smoker 2nd Hand Smoke Exposure: No Recent Foreign Travel: No Contact w/Someone Who Travel: No Recent Infectious Disease Expo: No Recent Hopitalizations: No Physical Abuse: No Sexual Abuse: No Mistreated: No Fear: No Immunizations Up To Date Tetanus Booster (TDap): More than 5yrs Date of Pneumonia Vaccine: Dec 30, 2015 Seasonal Allergies Seasonal Allergies: No Past Medical History Surgeries: Yes (WISDOM TEETH) Respiratory: No Cardiac: Yes (tachycardia) Atrial Fibrillation, High Cholesterol, Hypertension Neurological: Yes (OCCASIONAL HEADACHES) Concussion, Headaches /Migraines, Stroke 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 Disorders: No 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 Disorders: Denies BIOPHARMACEUTICAL REP History: Menopausal Sexually Transmitted Disease: No Genitourinary: No Gastrointestinal: No Musculoskeletal: Yes (CHRONIC NECK PAIN) Scoliosis, Chronic Back Pain Endocrine: No HEENT: No Cancer: No Psychosocial: Yes Anxiety, Depression Integumentary: No Recent Skin Changes Blood Disorders: No Family Medical History Cardiovascular disease FH: breast cancer 19 MOTHER (METS) FH: lung cancer 19 FATHER FHx: mental retardation G8 BROTHER Myocardial infarction 19 FATHER (X2) Heart Disease, Cancer Physical Exam Vital Signs Vital Signs - First Documented 11/27/19 20:11 Temp 37.2 Pulse 93 Resp 20 B/P (MAP) 171/112 (131) Pulse Ox 98 O2 Delivery Room Air Capillary Refill : Less Than 3 Seconds Height, Weight, BMI Height: 5'6.00" Weight: 180lbs. 5.0oz. 81.560419yw; 29.00 BMI Method:Stated General Appearance: WD/WN, no apparent distress Cardiovascular: normal peripheral pulses, regular rate, rhythm Respiratory: chest non-tender, lungs clear, normal breath sounds Knees: right knee bone tenderness (medial and lateral ), right knee joint effusion (small), right knee soft tissue tenderness (generalized), right knee other (range of motion from 5 to 95, pain with Amrita, negative anterior and posterior drawer, no medial or lateral laxity.) Neurologic/Psychiatric: no motor/sensory deficits, alert, normal mood/affect, oriented x 3 Skin: normal color, warm/dry Progress/Results/Core Measures Results/Orders My Orders Orders - TOM MILLER Knee, Right, 3 Views (11/27/19 20:20) Ibuprofen Tablet (Motrin Tablet) (11/27/19 21:15) Medications Given in ED Current Medications Medications Dose Ordered Sig/Lyndsay Route Start Time Stop Time Status Last Admin Dose Admin Ibuprofen 800 mg ONCE ONCE PO 11/27/19 21:15 11/27/19 21:16 DC 11/27/19 21:27 800 MG Vital Signs/I&O 11/27/19 11/27/19 20:11 21:28 Temp 37.2 37.2 Pulse 93 93 Resp 20 20 B/P (MAP) 171/112 (131) 162/90 (131) Pulse Ox 98 98 O2 Delivery Room Air Blood Pressure Mean: 131 Diagnostic Imaging Diagonstic Imaging: Xray Plain Films/CT/US/NM/MRI: knee Comments NAME: JC BOUCHER Arnaldo [facility] REC#: [id number] PT STATUS: REG ER : 1970 PHYSICIAN: TOM MILLER ADMIT DATE: 11/27/19/ER Signed Date of Exam:11/27/19 KNEE, RIGHT, 3 VIEWS INDICATION: Right knee pain COMPARISON: None FINDINGS: 3 views of the right knee demonstrate no fracture or dislocation. Articular surfaces are normal. There is a small suprapatellar joint effusion. IMPRESSION: Small joint effusion without fracture or dislocation Dictated by: Dictated on workstation # [id number] Dict: 11/27/192041 Trans: 11/27/192043 BHARAT [id number] Interpreted by: BELINDA HANSEN Electronically signed by: BELINDA HANSEN 11/27/192043 Reviewed: Reviewed by Me Departure Impression Primary Impression: Knee pain Qualified Codes: M25.561 - Pain in right knee Disposition: HOME, SELF-CARE Condition: Improved (ERASED) Departure-Patient Inst. Decision time for Depature: 21:10 Referrals: [facility] (PCP) Primary Care Physician RENETTA CARPIO MD (Family) Primary Care Physician SHAQUILLE JENNINGS MD Patient Instructions: Knee Pain (DC) Add. Discharge Instructions: Ice to right knee 20 minutes every 2 hours. Activity as tolerated. Aditya wrap to right knee. Alternate between Tylenol 600 mg and ibuprofen 600 mg every 4 hours for pain. Call Dr. Jennings's office for a follow-up appointment. Return to the emergency department for new, urgent health care needs. All discharge instructions reviewed with patient and/or family. Voiced understan isreal. TOM MILLER Nov 27, 2019 21:04
[2019-11-27] MEDS ORDERED: IBUPROFEN 800 MG (MOTRIN) TAB PO ONE (21:15)
[2019-11-27 21:28] VITALS: BP 162/90
== END 2019-11-27 21:28 | disposition home or self-care (01) ==
LOC: EDUNIT# 19:52 → ER 19:54
DX: M25.561 Pain in right knee (principal); I10 Essential (primary) hypertension; G43.909 Migraine, unspecified, not intractable, without status migrainosus; I48.91 Unspecified atrial fibrillation; E78.00 Pure hypercholesterolemia, unspecified; F41.9 Anxiety disorder, unspecified; F32.9 Major depressive disorder, single episode, unspecified; Z88.5 Allergy status to narcotic agent; Z86.73 Personal history of transient ischemic attack (TIA), and cerebral infarction without residual deficits; Z87.820 Personal history of traumatic brain injury; Z80.3 Family history of malignant neoplasm of breast; Z80.1 Family history of malignant neoplasm of trachea, bronchus and lung; Z82.49 Family history of ischemic heart disease and other diseases of the circulatory system
CPT/HCPCS: 73562

== ENCOUNTER 2020-01-02 13:26 | Emergency (ER) | payer SELFPAY ==
[~2020-01-02] VITALS: Ht 170 cm; Wt 81.8 kg
[~2020-01-02 13:26] MED LIST changes: +LISI1TAB26 PO
--- NOTE | 2020-01-02 14:30 | ED Lower Extremity ---
General Chief Complaint: Lower Extremity Stated Complaint: R KNEE PAIN Nursing Triage Note: patient states painful rt knee. unknown if injury. Nursing Sepsis Screen: No Definite Risk Source: patient, family Exam Limitations: no limitations (LEONEL ESQUIVEL MEDICAL STUDENT) History of Present Illness Date Seen by Provider: Jan 02, 2020 Time Seen by Provider: 14:05 Initial Comments Pt ambulates to ED complaining of worsening R knee pain. She is unsure exactly when or how she injured the knee initially, but she came to the [facility] ED about one month ago on November 27, 2019. An XR at that time showed a mild suprapatellar effusion, but no acute fracture, dislocation, or arthritic changes. The pt was discharged with follow up scheduled with Dr. Jennings, but she states she did not see him because she was not able to afford the copay. The right knee has remained moderately swollen and painful for the past month. She has been taking motrin with moderate relief. She denies any new trauma. This morning when she woke up the knee was much more painful, and she thought the knee was more swollen and had transition from "squishy to hard". She also noticed it was hot to the touch. She denies fevers or chills but endorses night sweats a few nights ago. Motrin was not helping the pain today and she was having a harder time walking. She denies recent upper respiratory, sexual, or gastrointestinal illness, long travel, sick contacts, history of DVT or clotting disorder or gout. Onset: other (about one month ago) Severity: severe Pain/Injury Location: right knee Method of Injury: unknown Modifying Factors: Improves With Cold Therapy (moderate improvement), Improves With Pain Medication (Motrin) Associated Symptoms: R calf pain (LEONEL ESQUIVEL MEDICAL STUDENT) Allergies and Home Medications Allergies Coded Allergies: morphine (Verified Allergy, Unknown, 04/27/17) Home Medications Cyclobenzaprine HCl 10 Mg Tablet, 10 MG PO Q8H PRN for neck spasm Prescribed by: DANA DON on 04/28/17328 Diclofenac Sodium 50 Mg Tablet., 50 MG PO Q6H PRN for neck/facial pain Prescribed by: DANA DON on 04/28/17328 Diclofenac Sodium 75 Mg Tablet., 75 MG PO BID PRN for pain Prescribed by: RAEANN SILVA on 02/06/18 1656 Famotidine 20 Mg Tablet, 20 MG PO BID Prescribed by: RAEANN SILVA on 01/03/16 1742 Lisinopril 20 Mg Tablet, 20 MG PO DAILY Prescribed by: MARK GODOY on 04/03/18 1528 Metoprolol Tartrate 25 Mg Tablet, 25 MG PO BID Prescribed by: MARK GODOY on 02/26/19 1640 Orphenadrine Citrate 100 Mg Tablet.er, 100 MG PO BID PRN for SPASMS Prescribed by: RAEANN SILVA on 05/06/172027 Orphenadrine Citrate 100 Mg Tablet.er, 100 MG PO BID PRN for SPASMS Prescribed by: RAEANN SILVA on 02/06/18 165 Pantoprazole Sodium 40 Mg Tablet.dr, 40 MG PO DAILY Prescribed by: VIRAL CHILDS on 08/07/172208 Paroxetine HCl 40 Mg Tablet, 40 MG PO DAILY, (Reported) Tramadol HCl 50 Mg Tablet, 50-100 MG PO Q4H PRN for PAIN-MILD TO MODERATE Prescribed by: RAEANN SILVA on 05/06/172027 Tramadol HCl 50 Mg Tablet, 50 MG PO Q6H PRN for PAIN-BREAKTHROUGH Prescribed by: USMAN CARRASQUILLO on 01/02/20 1517 Patient Home Medication List Home Medication List Reviewed: Yes (LEONEL ESQUIVEL MEDICAL STUDENT) Review of Systems Constitutional: No chills, No fever; other (night sweats) Respiratory: No cough, No short of breath Cardiovascular: No chest pain, No edema Gastrointestinal: No abdominal pain, No nausea, No vomiting Genitourinary: No dysuria, No frequency Musculoskeletal: No gout; joint pain, joint swelling Skin: No change in color, No lesions, No pruritus Psychiatric/Neurological: Denies Tingling, Denies Tremors, Denies Weakness (LEONEL ESQUIVEL MEDICAL STUDENT) Past Cukpfmb-Ttamyn-Nleexs Hx Patient Social History Alcohol Use: Denies Use Recreational Drug Use: No Smoking Status: Never a Smoker 2nd Hand Smoke Exposure: No Recent Foreign Travel: No Contact w/Someone Who Travel: No Recent Infectious Disease Expo: No Recent Hopitalizations: No (LEONEL ESQUIVEL MEDICAL STUDENT) Immunizations Up To Date Tetanus Booster (TDap): More than 5yrs Date of Pneumonia Vaccine: Dec 30, 2015 (LEONEL ESQUIVEL MEDICAL STUDENT) Seasonal Allergies Seasonal Allergies: No (LEONEL ESQUIVEL MEDICAL STUDENT) Past Medical History Surgeries: Yes (WISDOM TEETH) Respiratory: No Cardiac: Yes (tachycardia) Atrial Fibrillation, High Cholesterol, Hypertension Neurological: Yes (OCCASIONAL HEADACHES) Concussion, Headaches /Migraines, Stroke 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 Disorders: No 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 Sexually Transmitted Disease: No Genitourinary: No Gastrointestinal: No Musculoskeletal: Yes (CHRONIC NECK PAIN) Scoliosis, Chronic Back Pain Endocrine: No HEENT: No Cancer: No Psychosocial: Yes Anxiety, Depression Integumentary: No Recent Skin Changes Blood Disorders: No (LEONEL ESQUIVEL MEDICAL STUDENT) Family Medical History Cardiovascular disease FH: breast cancer 19 MOTHER (METS) FH: lung cancer 19 FATHER FHx: mental retardation G8 BROTHER Myocardial infarction 19 FATHER (X2) Heart Disease, Cancer (LEONEL ESQUIVEL MEDICAL STUDENT) Physical Exam Vital Signs Vital Signs - First Documented 01/02/20 13:35 Temp 37.0 Pulse 83 Resp 18 B/P (MAP) 132/94 (107) Pulse Ox 96 (USMAN MISTRY MD) Vital Signs Capillary Refill : Less Than 3 Seconds (LEONEL ESQUIVEL MEDICAL STUDENT) Height, Weight, BMI Height: 5'6.00" Weight: 180lbs. 5.0oz. [id number]; 28.00 BMI Method:Stated General Appearance: WD/WN, no apparent distress Cardiovascular: regular rate, rhythm, no edema, no gallop, no murmur Respiratory: chest non-tender, lungs clear, normal breath sounds, no respiratory distress, no accessory muscle use Gastrointestinal: normal bowel sounds, non tender Knees: right knee joint effusion, right knee pain, right knee soft tissue tenderness (fullness in R popliteal fossa, tender to palpation; NO REDNESS), right knee swelling Neurologic/Psychiatric: alert, normal mood/affect, oriented x 3 Skin: normal color, warm/dry Lymphatic: no adenopathy (LEONEL ESQUIVEL MEDICAL STUDENT) Progress/Results/Core Measures Results/Orders Lab Results Laboratory Tests Test 01/02/20 14:30 Range/Units White Blood Count 6.4 4.3-11.0 10^3/uL Red Blood Count 4.76 4.35-5.85 10^6/uL Hemoglobin 13.0 11.5-16.0 G/DL Hematocrit 40 35-52 % Mean Corpuscular Volume 84 80-99 FL Mean Corpuscular Hemoglobin 27 25-34 PG Mean Corpuscular Hemoglobin Concent 33 32-36 G/DL Red Cell Distribution Width 17.9 H 10.0-14.5 % Platelet Count 245 130-400 10^3/uL Mean Platelet Volume 11.0 H 7.4-10.4 FL Neutrophils (%) (Auto) 52 42-75 % Lymphocytes (%) (Auto) 34 12-44 % Monocytes (%) (Auto) 7 0-12 % Eosinophils (%) (Auto) 7 0-10 % Basophils (%) (Auto) 1 0-10 % Neutrophils # (Auto) 3.3 1.8-7.8 X 10^3 Lymphocytes # (Auto) 2.1 1.0-4.0 X 10^3 Monocytes # (Auto) 0.4 0.0-1.0 X 10^3 Eosinophils # (Auto) 0.5 H 0.0-0.3 10^3/uL Basophils # (Auto) 0.1 0.0-0.1 10^3/uL Erythrocyte Sedimentation Rate 21 H 0-20 MM/HR Sodium Level 139 135-145 MMOL/L Potassium Level 5.1 H 3.6-5.0 MMOL/L Chloride Level 110 H 98-107 MMOL/L Carbon Dioxide Level 20 L 21-32 MMOL/L Anion Gap 9 5-14 MMOL/L Blood Urea Nitrogen 15 7-18 MG/DL Creatinine 0.77 0.60-1.30 MG/DL Estimat Glomerular Filtration Rate > 60 BUN/Creatinine Ratio 19 Glucose Level 125 H 70-105 MG/DL Uric Acid 5.1 2.6-7.2 MG/DL Calcium Level 9.6 8.5-10.1 MG/DL C-Reactive Protein High Sensitivity 0.26 0.00-0.50 MG/DL (USMAN MISTRY MD) My Orders Orders - USMAN MISTRY MD Basic Metabolic Panel (01/02/20 14:11) Cbc With Automated Diff (01/02/20 14:11) Hs C Reactive Protein (01/02/20 14:11) Erythrocyte Sedimentation Rate (01/02/20 14:11) Ed Iv/Invasive Line Start (01/02/20 14:11) Uric Acid (01/02/20 14:11) Us Venous Lower Ext Rt (01/02/20 14:18) Tramadol Tablet (Ultram Tablet) (01/02/20 15:15) (USMAN MISTRY MD) Vital Signs/I&O 01/02/20 01/02/20 13:35 15:24 Temp 37.0 Pulse 83 83 Resp 18 18 B/P (MAP) 132/94 (107) 132/94 (107) Pulse Ox 96 96 (USMAN MISTRY MD) Blood Pressure Mean: 107 Diagnostic Imaging Diagonstic Imaging: Ultrasound Plain Films/CT/US/NM/MRI: leg, knee (LEONEL ESQUIVEL MEDICAL STUDENT) Comments NAME: [facility] REC#: [id number] PT STATUS: REG ER : 1970 PHYSICIAN: USMAN MISTRY MD ADMIT DATE: 01/02/20/ER Draft Date of Exam:01/02/20 US VENOUS LOWER EXT RT PROCEDURE: US right lower extremity venous. TECHNIQUE: Multiple Real-time grayscale images were obtained over the right lower extremity in various projections. Additional spectral analysis and color Doppler duplex images were also obtained. DATE: January 02, 2020. INDICATION: 49-year-old female, right lower extremity pain. COMPARISON: None. FINDINGS: The right common femoral vein, right superficial femoral vein, and right popliteal vein are all compressible with normal flow and response to augmentation. The visualized portions of the right deep femoral vein are patent. The right posterior tibial and peroneal veins are patent. IMPRESSION: Negative for right lower extremity deep venous thrombosis. Dictated on workstation # [id number] Dict: 01/02/20 1617 Trans: 01/02/20 1619 [id number] Interpreted by: SHERRY HIGH MD (USMAN MISTRY MD) Departure Impression Primary Impression: Right knee pain Qualified Codes: M25.561 - Pain in right knee Disposition: 01 HOME, SELF-CARE Condition: Improved Departure-Patient Inst. Decision time for Depature: 15:15 (USMAN MISTRY MD) Referrals: [facility] (PCP) Primary Care Physician RENETTA CARPIO MD (Family) Primary Care Physician NAVEED VALENZUELA MD Patient Instructions: Knee Pain Add. Discharge Instructions: Your workup in the emergency room was unremarkable. Please follow-up with an orthopedist for further evaluation. You may have soft tissue injury that could not be seen on the x-rays. This may require MRI or evaluation by an orthopedist to diagnose. In the meantime, you may use ibuprofen up to 600 mg every 6 hours and Tylenol (acetaminophen) up to 1000 mg every 6 hours as needed. You may additionally add Ultram (tramadol) for pain not controlled by [id number] medications. Icing in 20 minute intervals and compressive wrapping may also help with pain and swelling. Please contact the [facility] to seek referral for an orthopedic evaluation. Return to care if you have worsening symptoms despite following the above measures. All discharge instructions reviewed with patient and/or family. Voiced understanding. Scripts Tramadol HCl (Ultram) 50 Mg Tablet 50 MG PO Q6H PRN for PAIN-BREAKTHROUGH, #10 TAB Prov: USMAN MISTRY MD 01/02/20 This patient was personally interviewed and examined by me along with Leonel Esquivel MS4. I agree with his history, exam, and assessments with the following additions and corrections. Workup was pursued with labs. There is no evidence of infection has ESR, CRP, and WBC were all normal. There is fullness in the right popliteal fossa. Ultrasound was obtained to rule out DVT and Barbour cyst. Patient had been taking ibuprofen at home without significant relief. Tramadol was offered for further treatment. Patient was advised to seek orthopedic referral at [facility] where it would likely be more affordable. See discharge instructions. Exam: Gen.: Alert, oriented, no acute distress HEENT: Normocephalic and atraumatic Heart: Regular rate and rhythm without murmur Lungs: Clear to auscultation bilaterally with normal effort Musculoskeletal: There is mild knee effusion bilaterally, right slightly greater than left. There is mild warmth to the anterior right knee without any evidence of exterior inflammation or redness. There is mild tenderness at the superior aspect of the right calf. Minimal crepitus with range of motion. Skin: Warm, dry, no rashes or erythema Neuropsych: Alert, oriented, no focal deficits, normal mood (USMAN MISTRY MD) Copy Copies To 1: RENETTA CARPIO MDTHREE BRIDGESLEONEL MEDICAL STUDENT Jan 02, 2020 14:29 USMAN MISTRY MD Jan 02, 2020 15:18
[2020-01-02 14:37] LABS: BASOPHILS # (AUTO) 0.1 10^3/uL (0.0-0.1); BASOPHILS % (AUTO) 1 % (0-10); EOSINOPHILS # (AUTO) 0.5 10^3/uL (0.0-0.3); EOSINOPHILS % (AUTO) 7 % (0-10); HEMATOCRIT 40 % (35-52); LYMPHOCYTES # (AUTO) 2.1 X 10^3 (1.0-4.0); LYMPHOCYTES % (AUTO) 34 % (12-44); MEAN CORPUSCULAR HEMOGLOBIN 27 PG (25-34); MEAN CORPUSCULAR HGB CONC 33 G/DL (32-36); MEAN CORPUSCULAR VOLUME 84 FL (80-99); MONOCYTES # (AUTO) 0.4 X 10^3 (0.0-1.0); MONOCYTES % (AUTO) 7 % (0-12); NEUTROPHILS # (AUTO) 3.3 X 10^3 (1.8-7.8); NEUTROPHILS % (AUTO) 52 % (42-75); PLATELET COUNT 245 10^3/uL (130-400); RED CELL DISTRIBUTION WIDTH 17.9 % (10.0-14.5); WHITE BLOOD COUNT 6.4 10^3/uL (4.3-11.0)
[2020-01-02 14:55] LABS: BUN/CREATININE RATIO 19; CALCIUM 9.6 MG/DL (8.5-10.1); CARBON DIOXIDE 20 MMOL/L (21-32); CHLORIDE 110 MMOL/L (98-107); CREATININE SERUM 0.77 MG/DL (0.60-1.30); GFR ESTIMATED > 60; GLUCOSE 125 MG/DL (70-105); POTASSIUM 5.1 MMOL/L (3.6-5.0); SODIUM 139 MMOL/L (135-145); URIC ACID 5.1 MG/DL (2.6-7.2)
[2020-01-02 15:01] LABS: ERYTHROCYTE SEDIMENTATION RATE 21 MM/HR (0-20)
[2020-01-02] MEDS ORDERED: TRAM-42 PO (15:17)
[2020-01-02 15:24] VITALS: BP 132/94
--- NOTE | 2020-01-02 16:19 | Diagnostic Imaging Report ---
PROCEDURE: US right lower extremity venous. TECHNIQUE: Multiple Real-time grayscale images were obtained over the right lower extremity in various projections. Additional spectral analysis and color Doppler duplex images were also obtained. DATE: January 02, 2020. INDICATION: 49-year-old female, right lower extremity pain. COMPARISON: None. FINDINGS: The right common femoral vein, right superficial femoral vein, and right popliteal vein are all compressible with normal flow and response to augmentation. The visualized portions of the right deep femoral vein are patent. The right posterior tibial and peroneal veins are patent. IMPRESSION: Negative for right lower extremity deep venous thrombosis. Dictated by: Dictated on workstation # [id number]
== END 2020-01-02 15:24 | disposition home or self-care (01) ==
LOC: EDUNIT# 13:26 → ER 13:27
DX: M25.561 Pain in right knee (principal); I10 Essential (primary) hypertension; F41.9 Anxiety disorder, unspecified; F32.9 Major depressive disorder, single episode, unspecified; Z88.5 Allergy status to narcotic agent; Z86.73 Personal history of transient ischemic attack (TIA), and cerebral infarction without residual deficits; Z87.820 Personal history of traumatic brain injury; Z82.49 Family history of ischemic heart disease and other diseases of the circulatory system
CPT/HCPCS: 36415; 80048; 84550; 85025; 85652; 86141

== ENCOUNTER → 2020-01-28 | Outpatient (CLI) | payer OTHER ==
[~2020-01-28] MED LIST changes: +TRAM-42 PO
== END ==
LOC: ORTHO 09:20
PROVIDERS: ATTEND Orthopaedic Surgery
DX: M17.11 Unilateral primary osteoarthritis, right knee (principal); F41.9 Anxiety disorder, unspecified; I10 Essential (primary) hypertension; Z80.1 Family history of malignant neoplasm of trachea, bronchus and lung

== ENCOUNTER 2020-12-24 13:10 | Emergency (ER) | payer SELFPAY ==
[~2020-12-24] VITALS: Ht 170 cm; Wt 81.0 kg
--- NOTE | 2020-12-24 14:23 | ED Lower Extremity ---
General Chief Complaint: Lower Extremity Stated Complaint: R KNEE POSSIBLE SEPTIC Nursing Triage Note: PT REPORTS TO ED FOR RIGHT KNEE PAIN/SWELLING X'S 1 WEEK. PT AMB WITH SLIGHT LIMP TO ROOM 07. Nursing Sepsis Screen: No Definite Risk Source: patient Exam Limitations: no limitations History of Present Illness Date Seen by Provider: Dec 24, 2020 Time Seen by Provider: 13:45 Initial Comments Patient is a 50-year-old female who presents to the emergency department today for rule out of a "septic joint". Patient states that she has had some right knee swelling and discomfort over the course of the last week associated with fevers at home and some nausea. Patient denies any trauma to the right knee. She denies any recent illnesses such as cough, cold, congestion, sore throat. She denies any GI or symptoms. Patient denies any abscesses or skin infected areas although she does have a large abrasion down the posterior aspect of the left calf. Patient denies any other joint swelling or pain. She is not had anything quite like this before. She has been using some Voltaren gel over the right knee to try and alleviate some of the discomfort. All other review of systems reviewed and negative except as stated. Onset: last week Pain/Injury Location: right knee Method of Injury: unknown Modifying Factors: Improves With Immobilization; Worse With Jarring, Worse With Movement Allergies and Home Medications Allergies Coded Allergies: morphine (Verified Allergy, Unknown, 04/27/17) Home Medications Cyclobenzaprine HCl 10 Mg Tablet, 10 MG PO Q8H PRN for neck spasm Prescribed by: DANA DON on 04/28/17 0329 Diclofenac Sodium 50 Mg Tablet.dr, 50 MG PO Q6H PRN for neck/facial pain Prescribed by: DANA DON on 04/28/17 0329 Diclofenac Sodium 75 Mg Tablet.dr, 75 MG PO BID PRN for pain Prescribed by: RAEANN SILVA on 02/06/18 1656 Famotidine 20 Mg Tablet, 20 MG PO BID Prescribed by: RAEANN SILVA on 01/03/16 1742 Lisinopril 20 Mg Tablet, 20 MG PO DAILY Prescribed by: MARK GODOY on 04/03/18 1528 Metoprolol Tartrate 25 Mg Tablet, 25 MG PO BID Prescribed by: MARK GODOY on 02/26/19 1640 Orphenadrine Citrate 100 Mg Tablet.er, 100 MG PO BID PRN for SPASMS Prescribed by: RAEANN SILVA on 05/06/172027 Orphenadrine Citrate 100 Mg Tablet.er, 100 MG PO BID PRN for SPASMS Prescribed by: RAEANN SILVA on 02/06/18 165 Pantoprazole Sodium 40 Mg Tablet.dr, 40 MG PO DAILY Prescribed by: VIRAL CHILDS on 08/07/172208 Paroxetine HCl 40 Mg Tablet, 40 MG PO DAILY, (Reported) Tramadol HCl 50 Mg Tablet, 50-100 MG PO Q4H PRN for PAIN-MILD TO MODERATE Prescribed by: RAEANN SILVA on 05/06/172027 Tramadol HCl 50 Mg Tablet, 50 MG PO Q6H PRN for PAIN-BREAKTHROUGH Prescribed by: USMAN CARRASQUILLO on 01/02/20 1517 Patient Home Medication List Home Medication List Reviewed: Yes Review of Systems Constitutional: see HPI, fever EENTM: no symptoms reported Respiratory: no symptoms reported Cardiovascular: no symptoms reported Gastrointestinal: nausea Genitourinary: no symptoms reported : No Musculoskeletal: joint pain Skin: no symptoms reported All Other Systems Reviewed Negative Unless Noted: Yes Past Ymmkexa-Aacedy-Peotqx Hx Patient Social History Alcohol Use: Denies Use Smoking Status: Never a Smoker 2nd Hand Smoke Exposure: No Recent Infectious Disease Expo: No Recent Hopitalizations: No Immunizations Up To Date Tetanus Booster (TDap): More than 5yrs Date of Pneumonia Vaccine: Dec 30, 2015 Seasonal Allergies Seasonal Allergies: No Past Medical History Surgeries: Yes (WISDOM TEETH) Respiratory: No Cardiac: Yes (tachycardia) Atrial Fibrillation, High Cholesterol, Hypertension Neurological: Yes (OCCASIONAL HEADACHES) Concussion, Headaches /Migraines, Stroke : No 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 Disorders: No 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 Sexually Transmitted Disease: No Genitourinary: No Gastrointestinal: No Musculoskeletal: Yes (CHRONIC NECK PAIN) Scoliosis, Chronic Back Pain Endocrine: No HEENT: No Cancer: No Psychosocial: Yes Anxiety, Depression Integumentary: No Recent Skin Changes Blood Disorders: No Family Medical History Cardiovascular disease FH: breast cancer 19 MOTHER (METS) FH: lung cancer 19 FATHER FHx: mental retardation G8 BROTHER Myocardial infarction 19 FATHER (X2) Heart Disease, Cancer Physical Exam Vital Signs Vital Signs - First Documented 12/24/20 13:30 Temp 36.3 Pulse 86 Resp 20 B/P (MAP) 149/104 (119) Pulse Ox 96 O2 Delivery Room Air Capillary Refill : Less Than 3 Seconds Height, Weight, BMI Height: 5'6.00" Weight: 180lbs. 5.0oz. 81.389287iy; 28.00 BMI Method:Stated General Appearance: WD/WN, no apparent distress HEENT: PERRL/EOMI Cardiovascular: regular rate, rhythm Respiratory: lungs clear, normal breath sounds, no respiratory distress, no accessory muscle use Gastrointestinal: non tender, soft Hips: bilateral hip non-tender, bilateral hip normal inspection, bilateral hip normal range of motion, bilateral hip no evidence of injury Legs: bilateral leg non-tender, bilateral leg normal inspection, bilateral leg no evidence of injury Knees: right knee joint effusion (warmth over the right knee, no erythema; tender to palpation), right knee pain, right knee soft tissue tenderness, right knee swelling Ankles: bilateral ankle non-tender, bilateral ankle normal inspection, bilat eral ankle normal range of motion, bilateral ankle no evidence of injury Feet: bilateral foot non-tender, bilateral foot normal inspection, bilateral foot normal range of motion, bilateral foot no evidence of injury Neurologic/Tendon: normal sensation, normal motor functions, normal tendon functions Neurologic/Psychiatric: alert, normal mood/affect, oriented x 3 Skin: normal color, warm/dry Progress/Results/Core Measures Results/Orders Lab Results Laboratory Tests Test 12/24/20 13:55 12/24/20 14:20 Range/Units Body Fluid Source SYNOVIAL Body Fluid Color YELLOW Body Fluid Appearance SLT CLDY Body Fluid WBC 93 /uL Body Fluid RBC 7250 /uL Body Fluid Polynuclear WBCs 20 % Body Fluid Mononuclear WBCs 8 % Body Fluid Lymphocytes 72 % Body Fluid Other Cells % Body Fluid Crystals NOT SEEN White Blood Count 6.8 4.3-11.0 10^3/uL Red Blood Count 4.81 3.80-5.11 10^6/uL Hemoglobin 14.3 11.5-16.0 g/dL Hematocrit 44 35-52 % Mean Corpuscular Volume 91 80-99 fL Mean Corpuscular Hemoglobin 30 25-34 pg Mean Corpuscular Hemoglobin Concent 33 32-36 g/dL Red Cell Distribution Width 14.3 10.0-14.5 % Platelet Count 235 130-400 10^3/uL Mean Platelet Volume 10.3 9.0-12.2 fL Erythrocyte Sedimentation Rate 18 0-20 MM/HR Sodium Level 140 135-145 MMOL/L Potassium Level 4.2 3.6-5.0 MMOL/L Chloride Level 106 98-107 MMOL/L Carbon Dioxide Level 24 21-32 MMOL/L Anion Gap 10 5-14 MMOL/L Blood Urea Nitrogen 14 7-18 MG/DL Creatinine 0.85 0.60-1.30 MG/DL Estimat Glomerular Filtration Rate > 60 BUN/Creatinine Ratio 16 Glucose Level 136 H 70-105 MG/DL Calcium Level 9.7 8.5-10.1 MG/DL C-Reactive Protein High Sensitivity 0.23 0.00-0.50 MG/DL My Orders Orders - SILKE LEWIS MD Body Fluid Cell Count (12/24/20 13:57) Body Fluid Culture (12/24/20 13:57) Crystals,Body Fluid (12/24/20 13:57) Ed Iv/Invasive Line Start (12/24/20 14:12) Cbc No Diff (12/24/20 14:12) Basic Metabolic Panel (12/24/20 14:12) Blood Culture (12/24/20 14:12) Hs C Reactive Protein (12/24/20 14:12) Erythrocyte Sedimentation Rate (12/24/20 14:12) Blood Culture (12/24/20 14:28) Vital Signs/I&O 12/24/20 13:30 Temp 36.3 Pulse 86 Resp 20 B/P (MAP) 149/104 (119) Pulse Ox 96 O2 Delivery Room Air Blood Pressure Mean: 119 Progress Progress Note : Time: 14:25 Progress Note After appropriate consent was obtained, the patient was prepped and draped in sterile fashion. 1% lidocaine plain was used for local anesthesia to the lateral aspect of the right knee. Size 18-gauge needle was used to enter the right knee joint with aspiration of bloody yellow clear fluid. Approximately 9 cc was obtained. Patient tolerated the procedure well. 1544 Tap appears clean, 93 white blood cells several thousand red blood cells. No crystals were seen. CRP and sed rate are negative as is her white blood cell count. Patient is comfortable with discharge to home I have recommended pain medications and for her to continue the Voltaren gel that she is using. I have also recommended that she continue to ice her knee off and on over the course of the next several days. She will follow up with Dr. Carpio. She verbalizes understanding of the discharge instructions. All questions are sought and answered and she is stable for discharge. Departure Impression Primary Impression: Acute knee pain Qualified Codes: M25.561 - Pain in right knee Disposition: 01 HOME, SELF-CARE Condition: Stable Departure-Patient Inst. Decision time for Depature: 15:45 Referrals: [facility] ([place]P) Primary Care Physician RENETTA CARPIO MD (Family) Primary Care Physician Patient Instructions: Internal Derangement of the Knee (DC) Add. Discharge Instructions: Continue to ice your knee off and on as needed for pain and swelling. You can also continue to use the Voltaren gel/cream as indicated on the container. I have given you a prescription for tramadol, take this 1 tablet every 6 hours as needed for severe pain. You can alternate this with [id number] Tylenol. Please follow-up with your primary care provider. Scripts Tramadol HCl (Tramadol HCl) 50 Mg Tablet 50 MG PO Q6H PRN for PAIN, #20 TAB 0 Refills Prov: SILKE LEWIS MD 12/24/20 SILKE LEWIS MD Dec 24, 2020 14:23
[2020-12-24 14:34] LABS: HEMOGLOBIN 14.3 g/dL (11.5-16.0); MEAN PLATELET VOLUME 10.3 fL (9.0-12.2); WHITE BLOOD COUNT 6.8 10^3/uL (4.3-11.0)
[2020-12-24 14:50] LABS: CHLORIDE 106 MMOL/L (98-107); POTASSIUM 4.2 MMOL/L (3.6-5.0); SODIUM 140 MMOL/L (135-145)
[2020-12-24 14:51] LABS: CALCIUM 9.7 MG/DL (8.5-10.1); GLUCOSE 136 MG/DL (70-105)
[2020-12-24 14:53] LABS: CARBON DIOXIDE 24 MMOL/L (21-32)
[2020-12-24 14:55] LABS: CREATININE SERUM 0.85 MG/DL (0.60-1.30); GFR ESTIMATED > 60
[2020-12-24 14:56] LABS: BUN/CREATININE RATIO 16
[2020-12-24 14:59] LABS: BODY FLUID COLOR YELLOW; BODY FLUID SOURCE SYNOVIAL
[2020-12-24 15:00] LABS: BODY FLUID APPEARENCE SLT CLDY; BODY FLUID RBC COUNT 7250 /uL; BODY FLUID WBC TOTAL COUNT 93 /uL
[2020-12-24 15:25] LABS: LYMPHOCYTES,BODY FLUID 72 %
[2020-12-24] MEDS ORDERED: TRM50T PO (15:46)
[2020-12-24 15:57] VITALS: BP 115/89
== END 2020-12-24 15:57 | disposition home or self-care (01) ==
LOC: EDUNIT# 13:10 → ER 13:12
DX: M25.561 Pain in right knee (principal); I10 Essential (primary) hypertension; F41.9 Anxiety disorder, unspecified; F32.9 Major depressive disorder, single episode, unspecified; Z88.5 Allergy status to narcotic agent; Z80.1 Family history of malignant neoplasm of trachea, bronchus and lung; Z82.49 Family history of ischemic heart disease and other diseases of the circulatory system; Z80.3 Family history of malignant neoplasm of breast; Z87.820 Personal history of traumatic brain injury
CPT/HCPCS: 36415; 80048; 85027; 85652; 86141; 87040; 87070; 87205; 89051; 89060

== ENCOUNTER → 2021-01-26 | Outpatient (CLI) | payer OTHER ==
[~2021-01-26] MED LIST changes: -LISI-552 PO; +LISI20TA26 PO
--- NOTE | 2021-01-26 11:29 | Diagnostic Imaging Report ---
PROCEDURE: MRI right joint lower extremity without contrast. TECHNIQUE: Multiplanar, multisequence non contrast-enhanced MRI of the right lower extremity was accomplished. INDICATION: Knee pain. There are no prior MRI examinations available for comparison. The plain film examination of the right knee performed on 11/27/2019 failed to show any sign of an acute bony abnormality, although there was a small joint effusion present. On the proton dense sagittal series of this exam, there is a broad band of increased signal extending through the midportion and the posterior horn of the medial meniscus. This does seem to be in close proximity to the inferior articular surface and I suspect that this represents a meniscus tear. Furthermore, there is a prominent tear involving the posterior horn of lateral meniscus. In addition the midportion of the anterior horn of the lateral meniscus have been torn and have partially degenerated. The anterior and posterior cruciate ligaments and the quadriceps and infrapatellar tendons, the collateral ligaments, the biceps femoris tendon and the iliotibial band and lateral retinaculum are intact. However, on the T2 axial series, there is an area of increased signal near the attachment of the medial retinaculum to the patella. This may represent a long-standing partial tear of the attachment of the medial retinaculum. There is no abnormal signal arising from the osseous structures to suggest bone edema or fracture. 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 The patellofemoral space is fairly well-maintained. There is a small to moderate joint effusion present. IMPRESSION: 1. Both menisci are torn with the lateral meniscus the more severely injured. 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 2. The major ligaments and tendons show no sign of an acute injury. However, the small area of abnormal signal near the attachment of the medial retinaculum to the patella may be a sequela of prior trauma. 3. There is no sign of an acute bony abnormality. 4. There is a small to moderate joint effusion present. Dictated by: Dictated on workstation # [id number]
== END ==
LOC: RAD 09:44
PROVIDERS: ATTEND Internal Medicine
DX: S83.281A Other tear of lateral meniscus, current injury, right knee, initial encounter (principal); S83.241A Other tear of medial meniscus, current injury, right knee, initial encounter; M25.461 Effusion, right knee; X58.XXXA Exposure to other specified factors, initial encounter
CPT/HCPCS: 73721

== ENCOUNTER 2021-02-16 02:33 | Inpatient (IN) | payer OTHER ==
[~2021-02-16] VITALS: Ht 167.7 cm; Wt 81.6 kg
[2021-02-16] MEDS ORDERED: LACTATED RINGERS 1,000 ML IV ONE ×2 (02:45→05:00)
[2021-02-16 02:52] LABS: BASOPHILS # (AUTO) 0.1 10^3/uL (0.0-0.1); BASOPHILS % (AUTO) 1 % (0-10); EOSINOPHILS # (AUTO) 0.3 10^3/uL (0.0-0.3); EOSINOPHILS % (AUTO) 3 % (0-10); HEMATOCRIT 43 % (35-52); HEMOGLOBIN 14.1 g/dL (11.5-16.0); LYMPHOCYTES # (AUTO) 4.7 10^3/uL (1.0-4.0); LYMPHOCYTES % (AUTO) 48 % (12-44); MEAN CORPUSCULAR HEMOGLOBIN 31 pg (25-34); MEAN CORPUSCULAR HGB CONC 33 g/dL (32-36); MEAN CORPUSCULAR VOLUME 94 fL (80-99); MEAN PLATELET VOLUME 10.6 fL (9.0-12.2); MONOCYTES # (AUTO) 0.5 10^3/uL (0.0-1.0); MONOCYTES % (AUTO) 5 % (0-12); NEUTROPHILS # (AUTO) 4.3 10^3/uL (1.8-7.8); NEUTROPHILS % (AUTO) 43 % (42-75); PLATELET COUNT 216 10^3/uL (130-400); WHITE BLOOD COUNT 9.9 10^3/uL (4.3-11.0)
--- NOTE | 2021-02-16 03:00 | ED General ---
General Stated Complaint: SEIZURE,NEW ONSET Source of Information: Patient (PT WITH SOME MILD MEMORY IMPAIRMENT), EMS History of Present Illness Date Seen by Provider: Feb 16, 2021 Time Seen by Provider: 02:35 Initial Comments PT ARRIVES VIA EMS FROM HOME PT WAS ON TOILET, AND HEARD HER FALL, AND FOUND HER ON BATHROOM FLOOR WITH GENERALIZED SEIZURE ACTIVITY, LASTED 2 MINUTES EMS REPORT THAT PT APPEARED POST-ICTAL ON THEIR ARRIVAL, BUT WAS AWAKE NO INCONTINENCE NO ORAL INJURY NO EXTERNAL EVIDENCE OF INJURY EMS REPORT O2 SAT WAS 75% ON ROOM AIR WHEN THEY ARRIVED--UP TO 90% ON O2 AT 4L/NC NO HISTORY OF SEIZURES ON ARRIVAL, PT IS AWAKE AND ABLE TO ANSWER QUESTIONS SHE DENIES ANY PAIN ANYWHERE DENIES DIZZINESS DENIES HEADACHE DENIES VISION CHANGES DENIES NUMBNESS/TINGLING OR ANY MOTOR DEFICITS DENIES NAUSEA/VOMITING DENIES CHEST PAIN STATES SHE FEELS A LITTLE SHORT OF BREATH STATES SHE HAS BEEN HAVING A COUGH--NOT SURE HOW LONG SHE HAS HAD COUGH NO KNOWN FEVER NO KNOWN SICK CONTACTS PT HAS NOT HAD COVID-19 VACCINE OR HAD PREVIOUS COVID-19 INFECTION. PT DENIES ANY MISSED DOSES OF MEDICATIONS OR ANY NEW MEDICATIONS. PT STATES SHE TAKES PAXIL AND LISINOPRIL. DENIES ANY USE OF BENZODIAZEPINES . REPORTS THAT IT IS VERY DIFFICULT TO GET PT TO GO TO DR. PCP: DR. CARPIO Allergies and Home Medications Allergies Coded Allergies: morphine (Verified Allergy, Unknown, 04/27/17) Home Medications Cyclobenzaprine HCl 10 Mg Tablet, 10 MG PO Q8H PRN for neck spasm Prescribed by: DANA DON on 04/28/17 0329 Diclofenac Sodium 50 Mg Tablet., 50 MG PO Q6H PRN for neck/facial pain Prescribed by: DANA DON on 04/28/17 0329 Diclofenac Sodium 75 Mg Tablet., 75 MG PO BID PRN for pain Prescribed by: RAEANN SILVA on 02/06/18 1656 Famotidine 20 Mg Tablet, 20 MG PO BID Prescribed by: RAEANN SILVA on 01/03/16 1742 Lisinopril 20 Mg Tablet, 20 MG PO DAILY Prescribed by: MARK GODOY on 04/03/18 1528 Metoprolol Tartrate 25 Mg Tablet, 25 MG PO BID Prescribed by: MARK GODYO on 02/26/19 1640 Orphenadrine Citrate 100 Mg Tablet.er, 100 MG PO BID PRN for SPASMS Prescribed by: RAEANN SILVA on 05/06/172027 Orphenadrine Citrate 100 Mg Tablet.er, 100 MG PO BID PRN for SPASMS Prescribed by: RAEANN SILVA on 02/06/18 165 Pantoprazole Sodium 40 Mg Tablet.dr, 40 MG PO DAILY Prescribed by: VIRAL CHILDS on 08/07/172208 Paroxetine HCl 40 Mg Tablet, 40 MG PO DAILY, (Reported) Tramadol HCl 50 Mg Tablet, 50-100 MG PO Q4H PRN for PAIN-MILD TO MODERATE Prescribed by: RAEANN SILVA on 05/06/172027 Tramadol HCl 50 Mg Tablet, 50 MG PO Q6H PRN for PAIN-BREAKTHROUGH Prescribed by: USMAN CARRASQUILLO on 01/02/20 151 Tramadol HCl 50 Mg Tablet, 50 MG PO Q6H PRN for PAIN Prescribed by: SILKE LEWIS on 12/24/20 1547 Patient Home Medication List Home Medication List Reviewed: Yes Review of Systems Review of Systems Constitutional: no symptoms reported; No chills, No diaphoresis, No dizziness, No fever EENTM: no symptoms reported Respiratory: see HPI, cough, short of breath Cardiovascular: no symptoms reported; No chest pain Gastrointestinal: no symptoms reported; No abdominal pain, No nausea, No vomiting Genitourinary: no symptoms reported Musculoskeletal: no symptoms reported; No back pain, No neck pain Skin: no symptoms reported Psychiatric/Neurological: See HPI; Denies Headache, Denies Numbness, Denies Paresthesia; Seizure; Denies Tingling, Denies Weakness Hematologic/Lymphatic: No Symptoms Reported Immunological/Allergic: no symptoms reported Past Bmqxhcm-Pukvtt-Dmjzok Hx Past Med/Social Hx: Reviewed and Corrections made Patient Social History Alcohol Use: Denies Use Drug of Choice: DENIES Smoking Status: Never a Smoker 2nd Hand Smoke Exposure: No Recent Hopitalizations: No Immunizations Up To Date Tetanus Booster (TDap): More than 5yrs Date of Pneumonia Vaccine: Dec 30, 2015 Seasonal Allergies Seasonal Allergies: No Past Medical History Surgeries: Yes (WISDOM TEETH) Respiratory: No Cardiac: Yes (tachycardia) Atrial Fibrillation, High Cholesterol, Hypertension, Irregular Heartbeat Neurological: Yes (OCCASIONAL HEADACHES) Concussion, Headaches /Migraines, Stroke 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 Disorders: No 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 Disorders: 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 Sexually Transmitted Disease: No Genitourinary: No Gastrointestinal: No Musculoskeletal: Yes (CHRONIC NECK PAIN; CHRONIC RIGHT KNEE PAIN/TORN MENISCUS PER MRI 01/26/21) Scoliosis, Chronic Back Pain Endocrine: No HEENT: No Cancer: No Psychosocial: Yes Anxiety, Depression Integumentary: No Blood Disorders: No Family Medical History Cardiovascular disease FH: breast cancer 19 MOTHER (METS) FH: lung cancer 19 FATHER FHx: mental retardation G8 BROTHER Myocardial infarction 19 FATHER (X2) Heart Disease, Cancer Physical Exam Vital Signs Vital Signs - First Documented 02/16/21 02:35 Temp 36.0 Pulse 92 Resp 20 B/P (MAP) 172/112 (132) Pulse Ox 93 O2 Delivery Nasal Cannula Capillary Refill : Height, Weight, BMI Height: 5'6.00" Weight: 180lbs. 5.0oz. 81.522630jt; 28.00 BMI Method:Stated General Appearance: No Apparent Distress, WD/WN, Other (AWAKE, ALERT, FLAT AFFECT. ) HEENT: PERRL/EOMI, TMs Normal, Normal ENT Inspection, Pharynx Normal, Moist Mucous Membranes Neck: Full Range of Motion, Normal Inspection, Non Tender, Supple; No Carotid Bruit, No JVD Respiratory: Normal Breath Sounds, No Accessory Muscle Use, No Respiratory Distress Cardiovascular: Regular Rate, Rhythm, No Edema, No JVD, No Murmur, Normal Peripheral Pulses Gastrointestinal: Normal Bowel Sounds, No Organomegaly, No Pulsatile Mass, Non Tender, Soft Back: No CVA Tenderness Extremity: Normal Capillary Refill, Non Tender, No Pedal Edema Neurologic/Psychiatric: Alert, Oriented x3 (BUT SOME MILD MEMORY IMPAIRMENT), No Motor/Sensory Deficits, 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 ) Skin: Normal Color, Warm/Dry; No Rash; Other (NO EXTERNAL EVIDENCE OF TRAUMA) Focused Exam Lactate Level 02/16/21 03:30: Lactic Acid Level 2.98*H 02/16/21 05:30: Lactic Acid Level 1.88 Lactic Acid Level Laboratory Tests Test 02/16/21 03:30 02/16/21 05:30 Lactic Acid Level 2.98 MMOL/L (0.50-2.00) *H 1.88 MMOL/L (0.50-2.00) Progress/Results/Core Measures Suspected Sepsis SIRS Temperature: Pulse: Respiratory Rate: Laboratory Tests 02/16/21 02:42: White Blood Count 9.9 Blood Pressure / Mean: 02/16/21 03:30: Lactic Acid Level 2.98*H 02/16/21 05:30: Lactic Acid Level 1.88 Laboratory Tests 02/16/21 02:42: Creatinine 0.89, INR Comment 0.9, Platelet Count 216, Total Bilirubin 0.2 Results/Orders Lab Results Laboratory Tests Test 02/16/21 02:38 02/16/21 02:42 02/16/21 02:53 02/16/21 03:30 Range/Units Blood Gas Puncture Site RIGHT RADIAL Blood Gas Patient Temperature 98.6 Arterial Blood pH 7.39 7.37-7.43 Arterial Blood Partial Pressure CO2 39 35-45 MMHG Arterial Blood Partial Pressure O2 63 L 79-93 MMHG Arterial Blood HCO3 23 23-27 MMOL/L Arterial Blood Total CO2 24.6 21.0-31.0 MMOL/L Arterial Blood Oxygen Saturation 91 L 94-100 % Arterial Blood Base Excess -1.0 -2.5-2.5 MMOL/L Ace Test YES-POS Blood Gas Ventilator Setting NO Blood Gas Inspired Oxygen 6L White Blood Count 9.9 4.3-11.0 10^3/uL Red Blood Count 4.54 3.80-5.11 10^6/uL Hemoglobin 14.1 11.5-16.0 g/dL Hematocrit 43 35-52 % Mean Corpuscular Volume 94 80-99 fL Mean Corpuscular Hemoglobin 31 25-34 pg Mean Corpuscular Hemoglobin Concent 33 32-36 g/dL Red Cell Distribution Width 13.8 10.0-14.5 % Platelet Count 216 130-400 10^3/uL Mean Platelet Volume 10.6 9.0-12.2 fL Immature Granulocyte % (Auto) 0 % Neutrophils (%) (Auto) 43 42-75 % Lymphocytes (%) (Auto) 48 H 12-44 % Monocytes (%) (Auto) 5 0-12 % Eosinophils (%) (Auto) 3 0-10 % Basophils (%) (Auto) 1 0-10 % Neutrophils # (Auto) 4.3 1.8-7.8 10^3/uL Lymphocytes # (Auto) 4.7 H 1.0-4.0 10^3/uL Monocytes # (Auto) 0.5 0.0-1.0 10^3/uL Eosinophils # (Auto) 0.3 0.0-0.3 10^3/uL Basophils # (Auto) 0.1 0.0-0.1 10^3/uL Immature Granulocyte # (Auto) 0.0 0.0-0.1 10^3/uL Erythrocyte Sedimentation Rate 9 0-20 MM/HR Prothrombin Time 12.9 12.2-14.7 SEC INR Comment 0.9 0.8-1.4 Activated Partial Thromboplast Time 20 L 24-35 SEC Sodium Level 139 135-145 MMOL/L Potassium Level 4.8 3.6-5.0 MMOL/L Chloride Level 107 98-107 MMOL/L Carbon Dioxide Level 16 L 21-32 MMOL/L Anion Gap 16 H 5-14 MMOL/L Blood Urea Nitrogen 15 7-18 MG/DL Creatinine 0.89 0.60-1.30 MG/DL Estimat Glomerular Filtration Rate > 60 BUN/Creatinine Ratio 17 Glucose Level 72 70-105 MG/DL Calcium Level 8.9 8.5-10.1 MG/DL Corrected Calcium 8.8 8.5-10.1 MG/DL Magnesium Level 2.1 1.6-2.4 MG/DL Total Bilirubin 0.2 0.1-1.0 MG/DL Aspartate Amino Transf (AST/SGOT) 41 H 5-34 U/L Alanine Aminotransferase (ALT/SGPT) 22 0-55 U/L Alkaline Phosphatase 80 40-136 U/L Lactate Dehydrogenase 392 H 125-220 U/L Total Creatine Kinase 175 H 29-168 U/L Creatine Kinase MB 1.6 <6.6 NG/ML Myoglobin 171.5 H 10.0-92.0 NG/ML Troponin I < 0.028 <0.028 NG/ML C-Reactive Protein High Sensitivity 0.27 0.00-0.50 MG/DL B-Type Natriuretic Peptide 33.1 <100.0 PG/ML Total Protein 7.6 6.4-8.2 GM/DL Albumin 4.1 3.2-4.5 GM/DL Amylase Level 79 25-125 U/L Lipase 49 8-78 U/L Procalcitonin 0.02 <0.10 NG/ML TSH [place] Testing 3.76 0.35-4.94 UIU/ML Human Chorionic Gonadotropin, Quant < 5 <5 MIU/ML Serum Test, Qualitative NEGATIVE NEGATIVE Acetaminophen Level < 10 L 10-30 UG/ML Serum Alcohol < 10 <10 MG/DL Urine Color YELLOW Urine Clarity CLEAR Urine pH 5.5 5-9 Urine Specific [place] >=1.030 1.016-1.022 Urine Protein 3+ H NEGATIVE Urine Glucose (UA) NEGATIVE NEGATIVE Urine Ketones NEGATIVE NEGATIVE Urine Nitrite NEGATIVE NEGATIVE Urine Bilirubin NEGATIVE NEGATIVE Urine Urobilinogen 0.2 < = 1.0 MG/DL Urine Leukocyte Esterase NEGATIVE NEGATIVE Urine RBC (Auto) 2+ H NEGATIVE Urine RBC 10-25 H /HPF Urine WBC NONE /HPF Urine Squamous Epithelial Cells 2-5 /HPF Urine Crystals NONE /LPF Urine Bacteria NEGATIVE /HPF Urine Casts NONE /LPF Urine Mucus SMALL H /LPF Urine Culture Indicated NO Urine Opiates Screen POSITIVE H NEGATIVE Urine Oxycodone Screen NEGATIVE NEGATIVE Urine Methadone Screen NEGATIVE NEGATIVE Urine Propoxyphene Screen NEGATIVE NEGATIVE Urine Barbiturates Screen NEGATIVE NEGATIVE Ur Tricyclic Antidepressants Screen NEGATIVE NEGATIVE Urine Phencyclidine Screen NEGATIVE NEGATIVE Urine Amphetamines Screen NEGATIVE NEGATIVE Urine Methamphetamines Screen NEGATIVE NEGATIVE Urine Benzodiazepines Screen NEGATIVE NEGATIVE Urine Cocaine Screen NEGATIVE NEGATIVE Urine Cannabinoids Screen NEGATIVE NEGATIVE Lactic Acid Level 2.98 *H 0.50-2.00 MMOL/L Test 02/16/21 03:46 02/16/21 05:30 Range/Units Coronavirus 2019 ([facility]) Negative Negative Lactic Acid Level 1.88 0.50-2.00 MMOL/L Micro Results Microbiology 02/16/21 Influenza Types A,B Antigen (ELSIE) - Final, Complete My Orders Orders - VASILE SARMIENTO DO Accucheck Stat ONCE (02/16/21 02:36) Ed Iv/Invasive Line Start (02/16/21 02:36) Ekg Tracing (02/16/21 02:36) Catheter(Urinary) Insert & Ass 03,15 (02/16/21 02:36) Monitor-Rhythm Ecg Trace Only (02/16/21 02:36) Ct Head/Cervical Spine Wo (02/16/21 02:36) Chest 1 View, Ap/Pa Only (02/16/21 02:36) Acetaminophen (02/16/21 02:36) Alcohol (02/16/21 02:36) Amylase (02/16/21 02:36) Cbc With Automated Diff (02/16/21 02:36) Comprehensive Metabolic Panel (02/16/21 02:36) Creatine Kinase (02/16/21 02:36) Creatine Kinase Mb (02/16/21 02:36) Drug Screen Stat (Urine) (02/16/21 02:36) Hcg,Quantitative (02/16/21 02:36) Lipase (02/16/21 02:36) Magnesium (02/16/21 02:36) Protime With Inr (02/16/21 02:36) Partial Thromboplastin Time (02/16/21 02:36) Thyroid Analyzer (02/16/21 02:36) Ua Culture If Indicated (02/16/21 02:36) Myoglobin Serum (02/16/21 02:36) Troponin I (02/16/21 02:36) Ed Iv/Invasive Line Start (02/16/21 02:36) Lactated Ringers (Lr 1000 Ml Iv Solution (02/16/21 02:45) Arterial Blood Gas (02/16/21 02:43) BNP (02/16/21 02:43) Hs C Reactive Protein (02/16/21 02:43) Lactic Acid Analyzer (02/16/21 02:43) Procalcitonin (Pct) (02/16/21 02:43) Influenza A And B Antigens (02/16/21 02:43) Erythrocyte Sedimentation Rate (02/16/21 02:43) LDH (02/16/21 02:43) Coronavirus Sars-Cov-2 So 2018 (02/16/21 02:43) Covid 19 Inhouse Test (02/16/21 02:43) Hcg,Qualitative Serum (02/16/21 02:43) Urine Bedside (02/16/21 02:54) Ct Angio Chest W (02/16/21 04:07) Labetalol Injection (Normodyne Injection (02/16/21 04:45) Iohexol Injection (Omnipaque 350 Mg/Ml 1 (02/16/21 04:45) Received Contrast (Hold Metformin- Contr (02/16/21 04:45) Ns (Ivpb) (Sodium Chloride 0.9% Ivpb Bag (02/16/21 04:45) Ed Iv/Invasive Line Start (02/16/21 04:46) Lactated Ringers (Lr 1000 Ml Iv Solution (02/16/21 05:00) Ceftriaxone For Iv Use (Rocephin For I (02/16/21 05:00) Azithromycin Injection (Zithromax Inject (02/16/21 05:00) Ondansetron Injection (Zofran Injectio (02/16/21 05:30) Ondansetron Injection (Zofran Injectio (02/16/21 05:17) Dexamethasone Injection (Decadron Inje (02/16/21 05:45) Medications Given in ED Current Medications Medications Dose Ordered Sig/Lyndsay Route Start Time Stop Time Status Last Admin Dose Admin Azithromycin 500 mg/Sodium Chloride 255 ml @ 250 mls/hr ONCE ONCE IV 02/16/21 05:00 02/16/21 06:01 DC 02/16/21 05:12 250 MLS/HR Ceftriaxone Sodium 1000 mg/ Sterile Water 10 ml @ 200 mls/hr ONCE ONCE IV 02/16/21 05:00 02/16/21 05:02 DC 02/16/21 05:12 200 MLS/HR Dexamethasone Sodium Phosphate 6 mg ONCE ONCE IV 02/16/21 05:45 02/16/21 05:46 DC 02/16/21 05:50 6 MG Iohexol 100 ml ONCE ONCE IV 02/16/21 04:45 02/16/21 04:58 DC 02/16/21 04:43 100 ML Labetalol HCl 10 mg ONCE ONCE IV 02/16/21 04:45 02/16/21 04:46 DC 02/16/21 05:07 10 MG Lactated Ringer's 1,000 ml @ 0 mls/hr Q0M ONCE IV 02/16/21 02:45 02/16/21 02:46 DC 02/16/21 03:36 1,000 MLS/HR Lactated Ringer's 1,000 ml @ 0 mls/hr Q0M ONCE IV 02/16/21 05:00 02/16/21 05:01 DC 02/16/21 05:26 1,000 MLS/HR Ondansetron HCl 8 mg ONCE ONCE IVP 02/16/21 05:30 02/16/21 05:31 DC 02/16/21 05:25 8 MG Sodium Chloride 80 ml ONCE ONCE IV 02/16/21 04:45 02/16/21 04:58 DC 02/16/21 04:43 80 ML Vital Signs/I&O 02/16/21 02:35 Temp 36.0 Pulse 92 Resp 20 B/P (MAP) 172/112 (132) Pulse Ox 93 O2 Delivery Nasal Cannula Capillary Refill : Progress Note : Progress Note SHORTLY AFTER ARRIVAL, PT REPORTS SHE HAS HAD COUGH AND HAS BEEN A LITTLE SHORT OF BREATH--PT PLACED ON PUI STATUS AT THAT TIME PPE WORN FOR REMAINDER OF ER STAY, AND KEPT IN ISOLATION ROOM COVID-19 TESTING PERFORMED O2 SAT 90% ON 4L/NC--O2 INCREASED TO 5L/NC --SAT UP TO 92% PT DOES NOT APPEAR DYSPNEIC NO COUGH NOTED PT HAD NO COMPLAINTS FOR REMAINDER OF ER STAY NO SEIZURE ACTIVITY DURING ER STAY GRADUALLY DECREASED O2 DOWN TO 2L/NC AND O2 SATS REMAINED 99% GAVE LABETALOL FOR PERSISTENTLY ELEVATED BLOOD PRESSURE--BP DOWN TO 120'S/80'S AT TIME OF ADMIT GAVE ROCEPHIN + ZITHROMAX FOR PNEUMONIA ALSO GAVE DOSE OF DECADRON ECG Initial ECG Impression Date: Feb 16, 2021 Initial ECG Impression Time: 03:08 Initial ECG Rate: 85 Initial ECG Rhythm: Normal Sinus Diagnostic Imaging Comments CXR--BILATERAL INFILTRATES, PENDING RADIOLOGIST REVIEW CT HEAD/CERVICAL SPINE--NO ACUTE PROCESS, PER [facility] VIA FAX AT 0514 CT CHEST ANGIOGRAM--NO P.E.. NEW PATCHY DENSITIES IN LEFT LUNG, AND POSTERIOR RUL AND RLL CONSOLIDATIONS VS ATELECTASIS--PER [facility] VIA FAX AT 0554 Reviewed: Reviewed by Me Departure Communication (Admissions) Family Conversation [phone]--SPOKE WITH PT'S , PAT AND UPDATED HIM ON PT'S CONDITION AND ADVISED HIM OF NEED FOR QUARANTINE UNTIL CLEARED BY OR HEALTH DEPT [phone]--SPOKE WITH DR. MÉNDEZ, HOSPITALIST FOR [facility]. ACCEPTS PT FOR ADMIT. ORDERS NOTED. WILL CONSULT PULMONOLOGY. Impression Primary Impression: New onset seizure Additional Impressions: Hypoxia Person under investigation for COVID-19 HTN (hypertension) Bilateral pneumonia Disposition: ADMITTED INPATIENT Condition: Improved Admissions Decision to Admit Reason: Admit from ER (General) Decision to Admit/Date: Feb 16, 2021 Time/Decision to Admit Time: 06:00 Departure-Patient Inst. Referrals: [facility] (PCP) Primary Care Physician RENETTA CARPIO MD (Family) Primary Care Physician VASILE SARMIENTO DO Feb 16, 2021 03:00
[2021-02-16 03:04] LABS: ALBUMIN 4.1 GM/DL (3.2-4.5); CHLORIDE 107 MMOL/L (98-107); POTASSIUM 4.8 MMOL/L (3.6-5.0); SODIUM 139 MMOL/L (135-145)
[2021-02-16 03:05] LABS: CALCIUM 8.9 MG/DL (8.5-10.1); INR 0.9 (0.8-1.4); PROTHROMBIN TIME PATIENT 12.9 SEC (12.2-14.7)
[2021-02-16 03:06] LABS: AMYLASE 79 U/L (25-125)
[2021-02-16 03:07] LABS: BILIRUBIN,URINE NEGATIVE (NEGATIVE); CLARITY,URINE CLEAR; COLOR,URINE YELLOW; GLUCOSE, URINE (UA) NEGATIVE (NEGATIVE); KETONES,URINE NEGATIVE (NEGATIVE); LEUKOCYTE ESTERASE ,URINE NEGATIVE (NEGATIVE); NITRITE,URINE NEGATIVE (NEGATIVE); PH,URINE 5.5 (5-9); PROTEIN,URINE 3+ (NEGATIVE)
[2021-02-16 03:07] LABS: GLUCOSE 72 MG/DL (70-105); TOTAL PROTEIN 7.6 GM/DL (6.4-8.2)
[2021-02-16 03:08] LABS: BILIRUBIN,TOTAL 0.2 MG/DL (0.1-1.0); CARBON DIOXIDE 16 MMOL/L (21-32)
[2021-02-16 03:10] LABS: ALKALINE PHOSPHATASE 80 U/L (40-136); CREATININE SERUM 0.89 MG/DL (0.60-1.30); GFR ESTIMATED > 60
[2021-02-16 03:11] LABS: BUN/CREATININE RATIO 17
[2021-02-16 03:13] LABS: ALANINE AMINOTRANSFERASE 22 U/L (0-55); MAGNESIUM 2.1 MG/DL (1.6-2.4)
[2021-02-16 03:14] LABS: CREATINE KINASE 175 U/L (29-168); LIPASE 49 U/L (8-78)
[2021-02-16 03:15] LABS: ACETAMINOPHEN < 10 UG/ML (10-30); ERYTHROCYTE SEDIMENTATION RATE 9 MM/HR (0-20)
[2021-02-16 03:16] LABS: ABG OXYGEN SATURATION 91 % (94-100); ABG PCO2 39 MMHG (35-45); ABG PH 7.39 (7.37-7.43); ABG PO2 63 MMHG (79-93); ABG TCO2 24.6 MMOL/L (21.0-31.0); ALLENS TEST YES-POS; INSPIRED O2 6L; PATIENT TEMP 98.6; VENTILATOR NO
[2021-02-16 03:21] LABS: AMPHETAMINE SCREEN, URINE NEGATIVE (NEGATIVE); BENZODIAZEPINES SCREEN URINE NEGATIVE (NEGATIVE); CANNABINOID SCREEN, URINE NEGATIVE (NEGATIVE); COCAINE SCREEN URINE NEGATIVE (NEGATIVE); METHAMPHETAMINE SCREEN URINE S NEGATIVE (NEGATIVE)
[2021-02-16 03:22] LABS: BARBITURATE SCREEN URINE NEGATIVE (NEGATIVE); METHADONE STAT NEGATIVE (NEGATIVE); OPIATE SCREEN URINE POSITIVE (NEGATIVE); OXYCODONE STAT NEGATIVE (NEGATIVE); PROPOXYPHENE STAT NEGATIVE (NEGATIVE); TRICYCLIC ANTIDEPRESSANTS SCRE NEGATIVE (NEGATIVE)
[2021-02-16 03:23] LABS: CREATINE KINASE MB 1.6 NG/ML (<6.6)
[2021-02-16 03:24] LABS: BACTERIA,URINE NEGATIVE /HPF
[2021-02-16 03:34] LABS: TSH (THYROID ANALYZER) 3.76 UIU/ML (0.35-4.94)
[2021-02-16] MEDS ORDERED: NS 100 ML (IVPB) BAG IV ONE (04:45)
[2021-02-16] MEDS ORDERED: LABETALOL HCL 20 MG/4 ML VIAL IV ONE (04:45)
[2021-02-16] MEDS ORDERED: HOLD METFORMIN - RECEIVED CONTRAST 20 ML VIAL IV SCH (04:45)
[2021-02-16] MEDS ORDERED: IOHEXOL 350 MG/ML 100 ML (OMNIPAQUE 350) VIAL IV ONE (04:45)
[2021-02-16] MEDS ORDERED: cefTRIAXone FOR IV USE 1,000 MG in WATER (STERILE) FOR INJECTION 10 ML IV ONE (05:00)
[2021-02-16] MEDS ORDERED: AZITHROMYCIN INJECTION 500 MG in NS (IVPB) 250 ML IV ONE (05:00)
[2021-02-16] MEDS ORDERED: ONDANSETRON 4 MG/2 ML (SDV) Z0FRAN ONE (05:17)
[2021-02-16] MEDS ORDERED: ONDANSETRON 4 MG/2 ML (SDV) Z0FRAN IVP ONE (05:30)
--- NOTE | 2021-02-16 06:51 | Diagnostic Imaging Report ---
PROCEDURE: CT angiography of the chest with contrast. TECHNIQUE: Multiple contiguous axial images were obtained through the chest after uneventful bolus administration of intravenous contrast. 3D reconstructed CTA MIP acquisitions were also performed. Auto Exposure Controls were utilized during the CT exam to meet ALARA standards for radiation dose reduction. INDICATION: New onset seizure. Hypoxia. COMPARISON: 01/07/2019 FINDINGS: There is no CTA evidence of acute pulmonary embolus to the 1st subsegmental division of pulmonary arteries. Thoracic aorta is normal in course and caliber as well. By NASCET criteria, there is no focal significant stenosis. There is no evidence of aneurysm or dissection. Heart size is within normal limits as well. There is no large pericardial effusion. A few prominent bilateral hilar lymph nodes are noted. Reference lymph node on the left measures 1.6 x 1.5 cm (image 58, series 2). Several small mediastinal lymph nodes are also present. No abnormal axillary adenopathy is identified. Evaluation lung zuniga demonstrates large area of confluent groundglass density extending throughout the majority of the left lower lobe and involving large portion of the posterior and superior margins of the left upper lobe. There is some involvement of the right upper and lower lobes medially as well. No large effusion or pneumothorax is seen on either side. Pulmonary nodules may be obscured. Osseous structures show age-related degenerative changes. No lytic or blastic bony lesions are identified. Included portions of the upper abdomen are unremarkable as well. IMPRESSION: 1. No acute pulmonary embolus of the 1st subsegmental division of the pulmonary arteries. 2. Bilateral infiltrate, left greater than right. Correlation with COVID status is recommended. 3. Mildly prominent bilateral hilar lymph nodes. Findings may be reactive to bilateral infiltrates. Dictated by: Dictated on workstation # [id number]
--- NOTE | 2021-02-16 06:57 | Diagnostic Imaging Report ---
PROCEDURE: CT head and CT cervical spine without contrast. TECHNIQUE: Multiple contiguous axial images were obtained through the brain and cervical spine without the use of intravenous contrast. Sagittal and coronal reformations through the cervical spine were then performed. Auto Exposure Controls were utilized during the CT exam to meet ALARA standards for radiation dose reduction. INDICATION: New onset seizure. COMPARISON: 02/06/2018 FINDINGS: CT head: Ventricles and cortical sulci are normal in size and contour. There is no mass effect or midline shift. There is no new large area of loss of normal carter-white matter junction differentiation to suggest acute territorial infarct. There is no evidence of intra or extra-axial intracranial hemorrhage. No other extra-axial masses or fluid collections are seen. Bony calvarium is intact. Visualized portions of paranasal sinuses and mastoid air cells are clear. CT cervical spine: Evaluation of status alignment shows straightening of normal lordotic curvature. This however may be related to patient positioning, as well as spasm. There is however no significant anteroretrolisthesis. There is no evidence of jumped facets. Vertebral body heights are maintained. There is no acute fracture. No bony fragments are seen within the spinal canal. No significant degenerative changes are identified. Pre and paravertebral soft tissue structures are unremarkable. Included portions of the lung apices show partially visualized infiltrate. Please note, these findings are better visualized and further discussed on separately performed and separately dictated CTA of the chest. IMPRESSION: 1. No new acute intracranial abnormality. No CT evidence of acute infarct, mass, nor hemorrhage. 2. No acute fracture or dislocation of the cervical spine. Dictated by: Dictated on workstation # [id number]
[2021-02-16] MEDS ORDERED: LORazepam INJ 2 MG/ML (ATIVAN) VIAL IV PRN (07:15)
[2021-02-16] MEDS ORDERED: CATHETER FLUSH 10 ML SYR IV PRN (07:15)
[2021-02-16] MEDS ORDERED: ACETAMINOPHEN 500 MG TAB (TYLENOL) PO PRN (07:15)
[2021-02-16] MEDS ORDERED: ONDANSETRON 4 MG/2 ML (SDV) Z0FRAN IV PRN (07:15)
[2021-02-16 07:29] VITALS: BP 172/112
[2021-02-16] MEDS ORDERED: RT-ALBUTEROL INHALER HFA (VENTOLIN HFA) 18 GM IH PRN ×2 (07:45→08:00)
[2021-02-16] MEDS: LEVETIRACETAM 1,000 MG/NS 100 ML IVPB IV SCH ×4 (07:49→21:08)
[2021-02-16] MEDS: D5 1/2 NS W/KCL 20 MEQ/L 1,000 ML IV SCH ×2 (08:10→15:56)
--- NOTE | 2021-02-16 08:28 | Diagnostic Imaging Report ---
EXAMINATION: AP upright portable chest INDICATION: New onset seizure. COMPARISON: Multiple priors, most recent performed on 01/07/2019. FINDINGS: Low lung volumes are demonstrated. Hazy/groundglass opacities demonstrated throughout the left lung, with slightly more confluent opacities in the left lung base. Lesser degree of groundglass opacity is demonstrated in the medial aspect of the mid and lower right lung. No pneumothorax or large pleural effusion. Heart size and mediastinal contours are normal and unchanged. No acute osseous abnormality is identified. IMPRESSION: Diffuse groundglass opacity of left lung, and to a much lesser degree in the right lung, concerning for infectious process, including atypical pneumonia. Dictated by: Dictated on workstation # [id number]
[2021-02-16] MEDS ORDERED: RT-ALBUTEROL INHALER HFA (VENTOLIN HFA) 18 GM IH SCH (09:00)
[2021-02-16] MEDS: RT-ALBUTEROL INHALER HFA (VENTOLIN HFA) 18 GM IH SCH ×3 (10:17→21:14)
[2021-02-16] MEDS ORDERED: MULT-1136 PO (11:32)
[2021-02-16] MEDS ORDERED: LISI10TA25 PO (11:32)
[2021-02-16] MEDS ORDERED: ACHD5005 PO (11:32)
[2021-02-16] MEDS ORDERED: METO-333 PO (11:32)
--- NOTE | 2021-02-16 12:23 | History & Physical-Hospitalist ---
[facility] 02/16/21 1223: History of Present Illness HPI/Chief Complaint Awilda is a 50 y/o female that presented to the [facility] ER for shortness of air, hypoxia and reported seizure at home. While at home she was using the bathroom and ended up blanking out. She was found by her and EMS was called. Denies hx of anything similar. She does not remember what happened. Per EMS on ER note she was not incontinent and there is was no obvious injury due to the fall. There is a concern for new onset seizure. Initial oxygen saturation was in the 70s on arrival and recovered with supplemental oxygen. She admits to a cough for the last couple of months and new onset of shortness of breath over the last couple of days. She denies being around anyone sick or with COVID. She is a non-smoker. Nothing she knows has made it better or worse at home. PMH of chronic pain, HTN and questionable cardiac hx. Currently she is sitting in bed feeling much better. She is on 2L NC and is answering all questions. She states she is feeling better. Denies productive cough, chest pain, abdominal pain, constipation, dysuria or incomplete empyting. Positive for cough. CT of the head and neck were negative. CT of the chest/thorax had BL infiltrates with L>R. Source: patient Exam Limitations: no limitations Date Seen 02/16/21 Attending Physician Eileen Salinas DO [facility] Referring Physician Date of Admission Feb 16, 2021 at 06:00 Home Medications & Allergies Home Medications Reviewed patient Home Medication Reconciliation performed by pharmacy medication reconciliations telecasting technician and/or nursing. Patients Allergies have been reviewed. Allergies Allergies Coded Allergies morphine (Verified Allergy, Unknown, 04/27/17) Past Tosrbot-Tforrj-Ajungz Hx Past Med/Social Hx: Reviewed and Corrections made Patient Social History Alcohol Use: Denies Use Recreational Drug Use: No Drug of Choice: DENIES Smoking Status: Never a Smoker 2nd Hand Smoke Exposure: No Recent Foreign Travel: No Contact w/other who traveled: No Recent Hopitalizations: No Recent Infectious Disease Expo: No Immunizations Up To Date Tetanus Booster (TDap): More than 5yrs Pediatric: Yes Date of Pneumonia Vaccine: Dec 30, 2015 Seasonal Allergies Seasonal Allergies: No Past Medical History Cardiac: Atrial Fibrillation, High Cholesterol, Hypertension, Irregular Heartbeat Neurological: Concussion, Headaches /Migraines, Stroke : No 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: No Sexually Transmitted Disease: No 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 Disorders: Denies Menopausal Musculoskeletal: Scoliosis, Chronic Back Pain Psychosocial: Anxiety, Depression History of Blood Disorders: No Family History Cardiovascular disease FH: breast cancer 19 MOTHER (METS) FH: lung cancer 19 FATHER FHx: mental retardation G8 BROTHER Myocardial infarction 19 FATHER (X2) Heart Disease, Cancer Review of Systems Constitutional: no symptoms reported EENTM: blurred vision Respiratory: cough; No hemoptysis; short of breath Cardiovascular: No chest pain, No edema Gastrointestinal: no symptoms reported Genitourinary: no symptoms reported Skin: no symptoms reported Physical Exam Physical Exam Vital Signs Vital Signs - First Documented 02/16/21 02/16/21 02/16/21 02:35 07:00 07:29 Temp 36.0 Pulse 92 Resp 20 B/P (MAP) 172/112 (132) Pulse Ox 93 O2 Delivery Nasal Cannula O2 Flow Rate 2.00 FiO2 21 Capillary Refill : Greater Than 3 Seconds Height, Weight, BMI Height: 5'6.00" Weight: 180lbs. 5.0oz. 81.715952ns; 29.01 BMI Method:Stated General Appearance: No Apparent Distress, WD/WN HEENT: PERRL/EOMI Neck: Full Range of Motion, Non Tender Respiratory: Chest Non Tender, No Accessory Muscle Use, No Respiratory Distress, Crackles (Mid to lower lung on Left side. ) Cardiovascular: Regular Rate, Rhythm, No Edema, Normal Peripheral Pulses Gastrointestinal: Normal Bowel Sounds, Non Tender, Soft Extremity: Normal Capillary Refill, No Calf Tenderness Neurologic/Psychiatric: Alert, Oriented x3, medical records coder II-XII Norm as Tested Results Results/Procedures Labs Laboratory Tests 02/16/21 02:42 Patient resulted labs reviewed. Assessment/Plan Admission Diagnosis 1. Pneumonia - consult pulmonary - abx - pending PCR COVID 2. Hypoxia - supplemental oxygen 3. Seizure - Keppra - potentially 2/2 to hypoxia - will continue to evalute 4. Lactic acidosis - resolved 5. Chronic pain - home meds 6. Anxiety/Depression - hold home meds for now 7. Unknown Cardiac HX - consult cardiology Plan 02/16: - Consult cardiology and pulmonary - start respiratory therapy, ordered IS - continue abx (ceftraixone and azithromycin) - pending PCR for COVID - continue keppra, seizure precaution - monitor labs and vitals - will review home meds - appreciate pulmonary recs EILEEN SALINAS DO 02/17/21 0543: History of Present Illness HPI/Chief Complaint CC: New seizure activity HPI: This is a 50yoWF of [facility] who presented to the ER after found experiencing seizure-like activity at the house after she fell in the bathroom. At this current time, Pt was placed on antibiotics of Rocephin and Zithromax empirically for B/L infiltrates, CTA showed no evidence of PE and PCR for Covid is pending. ABG is 63. At this current time, Pt denies any other significant problems. Source: patient Exam Limitations: no limitations Time Seen by a Provider: 10:00 Past Mzwripx-Mybxzr-Xelqor Hx Past Med/Social Hx: Reviewed Nursing Past Med/Soc Hx, Reviewed and Corrections made Patient Social History Marrital Status: Employed/Student: unemployed Alcohol Use: Denies Use Past Medical History Psychosocial: Anxiety, Depression Family History Cardiovascular disease FH: breast cancer 19 MOTHER (METS) FH: lung cancer 19 FATHER FHx: mental retardation G8 BROTHER Myocardial infarction 19 FATHER (X2) Review of Systems Constitutional: see HPI Physical Exam Physical Exam General Appearance: No Apparent Distress Respiratory: Crackles (Mid to lower lung on Left side. ), Wheezing Cardiovascular: Regular Rate, Rhythm Neurologic/Psychiatric: Alert, Oriented x3, No Motor/Sensory Deficits, Normal Mood/Affect Assessment/Plan Admission Diagnosis O2 Cardiology consultation IV abx Admission Status: Inpatient Order (span 2 midnights) Reason for Inpatient Admission: hypoxia with seizure activity Diagnosis/Problems Diagnosis/Problems (1) New onset seizure Status: Acute (2) Bilateral pneumonia Status: Acute (3) Hypoxia Status: Acute (4) HTN (hypertension) Status: Acute (5) Person under investigation for COVID-19 Status: Acute Supervisory-Addendum Brief Verification & Attestation Participated in pt care: history, MDM, physical Personally performed: exam, history, MDM, supervision of care Care discussed with: Medical Student Procedures: n/a Results interpretation: Verified all documentation Verification and Attestation of Medical Student E/M Service A medical student performed and documented this service in my presence. I reviewed and verified all information documented by the medical student and made modifications to such information, when appropriate. I personally performed the physical exam and medical decision making. Eileen Salinas, Feb 17, 2021,05:43 [facility] Feb 16, 2021 12:23 EILEEN SALINAS DO Feb 17, 2021 05:43
[2021-02-16] MEDS: HYDROcodone/APAP 5 MG/325 MG (LORTAB) TAB PO PRN ×2 (15:51→21:08)
--- NOTE | 2021-02-16 16:16 | Consultation-Cardiology ---
HPI-Cardiology Cardiology Consultation: Date of Consultation 02/16/21 Date of Admission Attending Physician Eileen Méndez DO Admitting Physician [facility] Consulting Physician ARMEN GEORGE LPO-Chyekz-Xchysk Hx Patient Social History Smoking Status: Never a Smoker 2nd Hand Smoke Exposure: No Immunizations Up To Date Tetanus Booster (TDap): More than 5yrs Date of Pneumonia Vaccine: Dec 30, 2015 Past Medical History PMH As described under Assessment. Family Medical History Family Medical History: She reports her mother and father both had CAD. She reports her mother had an VA at around age 40. Family History: Cardiovascular disease FH: breast cancer 19 MOTHER (METS) FH: lung cancer 19 FATHER FHx: mental retardation G8 BROTHER Myocardial infarction 19 FATHER (X2) Allergies and Home Medications Allergies Coded Allergies: morphine (Verified Allergy, Unknown, 04/27/17) Home Medications Albuterol Sulfate 18 Gm Hfa.aer.ad, 0 GM IH RTQ6HR Prescribed by: EILEEN MÉNDEZ on 02/17/211124 Cefdinir 300 Mg Capsule, 300 MG PO BID Prescribed by: EILEEN MÉNDEZ on 02/17/21 112 Hydrocodone/Acetaminophen 1 Each Tablet, 1 TAB PO TID PRN for PAIN-MODERATE (5- 7), (Reported) Levetiracetam 500 Mg Tablet, 500 MG PO BID PRN Prescribed by: EILEEN MÉNDEZ on 02/17/21 112 Lisinopril 10 Mg Tablet, 10 MG PO DAILY, (Reported) Metoprolol Tartrate 25 Mg Tablet, 25 MG PO DAILY, (Reported) LAST FILLED 11-29-2020 #60/60 DAY SUPPLY Multivitamin 1 Each Tablet, 1 EACH PO DAILY, (Reported) Paroxetine HCl 40 Mg Tablet, 40 MG PO DAILY, (Reported) Prednisone 10 Mg Tab.ds.pk, 10 MG PO DAILY Take 3 tabs(30mg)daily,decrease by 1 tab(10MG)daily. Prescribed by: EILEEN MÉNDEZ on 02/17/211124 Physical Exam-Cardiology Physical Exam Vital Signs/I&O 02/18/21 00:00 Intake Total 0 ml Output Total 500 ml Balance -500 ml Capillary Refill : Greater Than 3 Seconds Data Review Labs Microbiology 02/16/21 MRSA Screen - Final, Complete MRSA not isolated A/P-Cardiology Assessment/Admission Diagnosis Holter monitor March [address] Michelle showed atrial tachycardia HTN Fatigue Stress test done in December [address] Michelle which did not show any evidence of ischemia or infarct. Echocardiogram on December [address] Michelle which showed normal LV systolic function with an EF of 60 percent. No significant valvular heart disease. PA pressure was normal. ARMEN PERRIN Feb 16, 2021 16:16
--- NOTE | 2021-02-16 18:53 | Consultation-Cardiology ---
HPI-Cardiology Cardiology Consultation: Date of Consultation 02/16/21 Time Seen by a Provider: 18:30 Date of Admission Attending Physician Eileen Salinas DO Admitting Physician [facility] Consulting Physician YAZ WEEKS MD, MA, FACP, FACC, [facility], [facility] Physician requesting consult: Dr Salinas HPI: Chief Complaint: Reason for consult: seizure or syncope HPI 50 yo woman who experienced a seizure episode this am. Had gotten up to go to the bathroom. heard her fall. states she had slipped off the toilet. Was on floor. Was stiff and shaking gently all over. Was like that for a few min and was confused when came around. Has never had that happen before. Denies cp or palp or shortness of breath. Was not straining at the stools this am. Did not have any palpitations. Denies swelling. Review of Systems-Cardiology Review of Systems Constitutional: No malaise, No tiredness, No weight loss, No weight gain Eyes: No vision change Ears/Nose/Throat: No ear discharge, No nasal drainage, No recent hearing loss Respiratory: As described under HPI Cardiovascular: As described under HPI Gastrointestinal: No constipation, No diarrhea, No nausea, No vomiting Genitourinary: No dysuria, No hematuria, No urine frequency changes Musculoskeletal: No back pain, No joint pain Psychiatric/Neurological: No seizure, No focal weakness, No syncope Hematologic: No bleeding abnormalities GFJ-Oynnhx-Eytspk Hx Patient Social History Smoking Status: Never a Smoker 2nd Hand Smoke Exposure: No Immunizations Up To Date Tetanus Booster (TDap): More than 5yrs Date of Pneumonia Vaccine: Dec 30, 2015 Past Medical History PMH As described under Assessment. Family Medical History Family Medical History: She reports her mother and father both had CAD. She reports her mother had an VA at around age 40. Family History: Cardiovascular disease FH: breast cancer 19 MOTHER (METS) FH: lung cancer 19 FATHER FHx: mental retardation G8 BROTHER Myocardial infarction 19 FATHER (X2) Allergies and Home Medications Allergies Coded Allergies: morphine (Verified Allergy, Unknown, 04/27/17) Home Medications Hydrocodone/Acetaminophen 1 Each Tablet, 1 TAB PO TID PRN for PAIN-MODERATE (5- 7), (Reported) Lisinopril 10 Mg Tablet, 10 MG PO DAILY, (Reported) Metoprolol Tartrate 25 Mg Tablet, 25 MG PO DAILY, (Reported) LAST FILLED 11-29-2020 #60/60 DAY SUPPLY Multivitamin 1 Each Tablet, 1 EACH PO DAILY, (Reported) Paroxetine HCl 40 Mg Tablet, 40 MG PO DAILY, (Reported) Patient Home Medication List Home Medication List Reviewed: Yes Physical Exam-Cardiology Physical Exam Vital Signs/I&O 02/16/21 02/16/21 02/16/21 02/16/21 06:53 07:00 07:15 07:29 Temp 36.3 36.0 Pulse 89 86 92 Resp 15 B/P (MAP) 144/97 164/110 (128) Pulse Ox 97 94 O2 Delivery Nasal Cannula O2 Flow Rate 2.00 FiO2 21 02/16/21 02/16/21 02/16/21 02/16/21 08:00 08:30 09:00 10:00 Pulse 86 86 88 Resp 23 18 19 B/P (MAP) 166/132 (143) 151/98 (115) 136/94 (108) Pulse Ox 93 96 95 93 O2 Delivery Nasal Cannula Nasal Cannula Nasal Cannula Nasal Cannula O2 Flow Rate 2.00 2.00 2.00 2.00 02/16/21 02/16/21 02/16/21 02/16/21 10:17 11:34 12:41 15:48 Temp 36.7 Pulse 82 84 Resp 16 B/P (MAP) 152/94 (113) Pulse Ox 96 93 97 O2 Delivery Nasal Cannula Room Air Room Air O2 Flow Rate 2.00 02/16/21 15:51 Pulse 92 B/P (MAP) 132/79 (96) Pulse Ox 95 O2 Delivery Room Air Capillary Refill : Greater Than 3 Seconds Constitutional: AAO x 3, well-developed, well-nourished HEENT: EOMI, hearing is well preserved; No xanthelasmas are seen Neck: carotid pulses are 2 + bilaterally, with good upstrokes Respiratory: No accessory muscle use; other (good, bilateral air entry) Cardiovascular: regular rate-rhythm, systolic murmur (soft HARINDER at card base) Gastrointestinal: No tender; soft; No guarding, No rebound; audible bowel sounds Extremities: No clubbing, No cyanosis, No significant edema Neurologic/Psychiatric: oriented x 3, other (moves all limbs equally) Skin: No rash on exposed areas, No ulcerations on exposed areas Data Review Labs Laboratory Tests 02/16/21 02:38: Blood Gas Puncture Site RIGHT RADIAL, Blood Gas Patient Temperature 98.6, Arterial Blood pH 7.39, Arterial Blood Partial Pressure CO2 39, Arterial Blood Partial Pressure O2 63L, Arterial Blood HCO3 23, Arterial Blood Total CO2 24.6, Arterial Blood Oxygen Saturation 91L, Arterial Blood Base Excess -1.0, Ace Test YES-POS, Blood Gas Ventilator Setting NO, Blood Gas Inspired Oxygen 6L 02/16/21 02:42: White Blood Count 9.9, Red Blood Count 4.54, Hemoglobin 14.1, Hematocrit 43, Mean Corpuscular Volume 94, Mean Corpuscular Hemoglobin 31, Mean Corpuscular Hemoglobin Concent 33, Red Cell Distribution Width 13.8, Platelet Count 216, Mean Platelet Volume 10.6, Immature Granulocyte % (Auto) 0, Neutrophils (%) (Auto) 43, Lymphocytes (%) (Auto) 48H, Monocytes (%) (Auto) 5, Eosinophils (%) (Auto) 3, Basophils (%) (Auto) 1, Neutrophils # (Auto) 4.3, Lymphocytes # (Auto) 4.7H, Monocytes # (Auto) 0.5, Eosinophils # (Auto) 0.3, Basophils # (Auto) 0.1, Immature Granulocyte # (Auto) 0.0, Erythrocyte Sedimentation Rate 9, Prothrombin Time 12.9, INR Comment 0.9, Activated Partial Thromboplast Time 20L, Sodium Level 139, Potassium Level 4.8, Chloride Level 107, Carbon Dioxide Level 16L, Anion Gap 16H, Blood Urea Nitrogen 15, Creatinine 0.89, Estimat Glomerular Filtration Rate > 60, BUN/Creatinine Ratio 17, Glucose Level 72, Calcium Level 8.9, Corrected Calcium 8.8, Magnesium Level 2.1, Total Bilirubin 0.2, Aspartate Amino Transf (AST/SGOT) 41H, Alanine Aminotransferase (ALT/SGPT) 22, Alkaline Phosphatase 80, Lactate Dehydrogenase 392H, Total Creatine Kinase 175H, Creatine Kinase MB 1.6, Myoglobin 171.5H, Troponin I < 0.028, C-Reactive Protein High Sensitivity 0.27, B-Type Natriuretic Peptide 33.1, Total Protein 7.6, Albumin 4.1, Amylase Level 79, Lipase 49, Procalcitonin 0.02, TSH [place] Testing 3.76, Human Chorionic Gonadotropin, Quant < 5, Serum Test, Qualitative NEGATIVE, Acetaminophen Level < 10L, Serum Alcohol < 10 02/16/21 02:53: Urine Color YELLOW, Urine Clarity CLEAR, Urine pH 5.5, Urine Specific [place] >=1.030, Urine Protein 3+H, Urine Glucose (UA) NEGATIVE, Urine Ketones NEGATIVE, Urine Nitrite NEGATIVE, Urine Bilirubin NEGATIVE, Urine Urobilinogen 0.2, Urine Leukocyte Esterase NEGATIVE, Urine RBC (Auto) 2+H, Urine RBC 10-25H, Urine WBC NONE, Urine Squamous Epithelial Cells 2-5, Urine Crystals NONE, Urine Bacteria NEGATIVE, Urine Casts NONE, Urine Mucus SMALLH, Urine Culture Indicated NO, Urine Opiates Screen POSITIVEH, Urine Oxycodone Screen NEGATIVE, Urine Methadone Screen NEGATIVE, Urine Propoxyphene Screen NEGATIVE, Urine Barbiturates Screen NEGATIVE, Ur Tricyclic Antidepressants Screen NEGATIVE, Urine Phencyclidine Screen NEGATIVE, Urine Amphetamines Screen NEGATIVE, Urine Methamphetamines Screen NEGATIVE, Urine Benzodiazepines Screen NEGATIVE, Urine Cocaine Screen NEGATIVE, Urine Cannabinoids Screen NEGATIVE 02/16/21 03:30: Lactic Acid Level 2.98*H 02/16/21 03:46: Coronavirus (COVID-19)(PCR) Negative, Coronavirus 2019 ([facility]) Negative 02/16/21 05:30: Lactic Acid Level 1.88 Microbiology 02/16/21 Influenza Types A,B Antigen (ELSIE) - Final, Complete A/P-Cardiology Assessment/Admission Diagnosis Seizure vs syncope on 02-16-21 Holter monitor March [address] Michelle showed atrial tachycardia HTN Fatigue Stress test done in December [address] Michelle which did not show any evidence of ischemia or infarct. Echocardiogram on December [address] Michelle which showed normal LV systolic function with an EF of 60 percent. No significant valvular heart disease. PA pressure was normal. Discussion and Recomendations * Echo * Monitor labs * Consider ILR if seizure disorder is not suspected YAZ WEEKS MD [facility] Feb 16, 2021 18:53
[2021-02-17] MEDS: D5 1/2 NS W/KCL 20 MEQ/L 1,000 ML IV SCH ×2 (01:10→03:39)
[2021-02-17] MEDS: RT-ALBUTEROL INHALER HFA (VENTOLIN HFA) 18 GM IH SCH ×3 (01:55→15:36)
[2021-02-17 04:00] LABS: BASOPHILS % (AUTO) 0 % (0-10); EOSINOPHILS % (AUTO) 0 % (0-10); HEMATOCRIT 35 % (35-52); HEMOGLOBIN 11.8 g/dL (11.5-16.0); LYMPHOCYTES # (AUTO) 2.8 10^3/uL (1.0-4.0); LYMPHOCYTES % (AUTO) 30 % (12-44); MEAN CORPUSCULAR HEMOGLOBIN 31 pg (25-34); MEAN CORPUSCULAR HGB CONC 34 g/dL (32-36); MEAN CORPUSCULAR VOLUME 92 fL (80-99); MEAN PLATELET VOLUME 10.9 fL (9.0-12.2); MONOCYTES # (AUTO) 0.5 10^3/uL (0.0-1.0); MONOCYTES % (AUTO) 5 % (0-12); NEUTROPHILS # (AUTO) 5.8 10^3/uL (1.8-7.8); NEUTROPHILS % (AUTO) 64 % (42-75); PLATELET COUNT 194 10^3/uL (130-400); WHITE BLOOD COUNT 9.1 10^3/uL (4.3-11.0)
[2021-02-17 04:16] LABS: ALBUMIN 3.6 GM/DL (3.2-4.5); CHLORIDE 108 MMOL/L (98-107)
[2021-02-17 04:17] LABS: POTASSIUM 3.7 MMOL/L (3.6-5.0); SODIUM 140 MMOL/L (135-145)
[2021-02-17 04:18] LABS: CALCIUM 8.5 MG/DL (8.5-10.1)
[2021-02-17 04:19] LABS: GLUCOSE 105 MG/DL (70-105); TOTAL PROTEIN 6.1 GM/DL (6.4-8.2)
[2021-02-17 04:20] LABS: CARBON DIOXIDE 23 MMOL/L (21-32)
[2021-02-17 04:21] LABS: BILIRUBIN,TOTAL 0.5 MG/DL (0.1-1.0)
[2021-02-17 04:22] LABS: ALKALINE PHOSPHATASE 73 U/L (40-136); PHOSPHORUS 2.8 MG/DL (2.3-4.7)
[2021-02-17 04:23] LABS: CREATININE SERUM 0.77 MG/DL (0.60-1.30); GFR ESTIMATED > 60
[2021-02-17 04:24] LABS: BUN/CREATININE RATIO 8
[2021-02-17 04:26] LABS: ALANINE AMINOTRANSFERASE 16 U/L (0-55)
--- NOTE | 2021-02-17 04:55 | Pulmonary Consultation ---
History of Present Illness History of Present Illness Date Seen by Provider: Feb 17, 2021 Time Seen by Provider: 04:51 Date of Admission Allergies and Home Medications Allergies Coded Allergies: morphine (Verified Allergy, Unknown, 04/27/17) Home Medications Hydrocodone/Acetaminophen 1 Each Tablet, 1 TAB PO TID PRN for PAIN-MODERATE (5- 7), (Reported) Lisinopril 10 Mg Tablet, 10 MG PO DAILY, (Reported) Metoprolol Tartrate 25 Mg Tablet, 25 MG PO DAILY, (Reported) LAST FILLED 11-29-2020 #60/60 DAY SUPPLY Multivitamin 1 Each Tablet, 1 EACH PO DAILY, (Reported) Paroxetine HCl 40 Mg Tablet, 40 MG PO DAILY, (Reported) Past Bkbrgeu-Jawipt-Mmtyuo Hx Past Med/Social Hx: Reviewed and Corrections made Patient Social History Alcohol Use: Denies Use Drug of Choice: DENIES Smoking Status: Never a Smoker 2nd Hand Smoke Exposure: No Recent Infectious Disease Expo: No Recent Hopitalizations: No Immunizations Up To Date Tetanus Booster (TDap): More than 5yrs PED Vaccines UTD: Yes Date of Pneumonia Vaccine: Dec 30, 2015 Seasonal Allergies Seasonal Allergies: No Past Medical History Surgeries: Yes (WISDOM TEETH) Respiratory: No Cardiac: Yes (tachycardia) Atrial Fibrillation, High Cholesterol, Hypertension, Irregular Heartbeat Neurological: Yes Concussion, Headaches /Migraines, Stroke : No Last Menstrual Period: Feb 02, 2021 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 Disorders: No 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 Disorders: 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 Sexually Transmitted Disease: No Genitourinary: No Gastrointestinal: No Musculoskeletal: Yes (CHRONIC NECK PAIN; CHRONIC RIGHT KNEE PAIN/TORN MENISCUS PER MRI 01/26/21) Scoliosis, Chronic Back Pain Endocrine: No HEENT: No Cancer: No Psychosocial: Yes Anxiety, Depression Integumentary: No Blood Disorders: No Family Medical History Cardiovascular disease FH: breast cancer 19 MOTHER (METS) FH: lung cancer 19 FATHER FHx: mental retardation G8 BROTHER Myocardial infarction 19 FATHER (X2) Heart Disease, Cancer Review of Systems Time Seen by Provider: 04:55 Sepsis Event Evaluation Height, Weight, BMI Height: 5'6.00" Weight: 180lbs. 5.0oz. 81.885104bd; 29.01 BMI Method:Stated Exam Exam Vital Signs Date Time Temp Pulse Resp B/P (MAP) Pulse Ox O2 Delivery O2 Flow Rate FiO2 3/25/21 03:59 36.5 73 20 160/85 (110) 96 Room Air 02/17/21 01:55 100 Room Air 02/17/21 01:00 80 02/17/21 00:17 36.9 86 18 139/76 (97) 96 Room Air 02/16/21 21:14 99 Room Air 02/16/21 21:00 99 Room Air 02/16/21 19:01 37.0 82 17 151/91 (111) 94 Room Air 02/16/21 19:00 80 02/16/21 15:51 92 132/79 (96) 95 Room Air 02/16/21 15:48 97 Room Air 02/16/21 12:41 84 02/16/21 11:34 36.7 82 16 152/94 (113) 93 Room Air 02/16/21 10:17 96 Nasal Cannula 2.00 02/16/21 10:00 88 19 136/94 (108) 93 Nasal Cannula 2.00 02/16/21 09:00 86 18 151/98 (115) 95 Nasal Cannula 2.00 02/16/21 08:30 96 Nasal Cannula 2.00 02/16/21 08:00 86 23 166/132 (143) 93 Nasal Cannula 2.00 02/16/21 07:29 36.0 92 94 21 02/16/21 07:15 86 02/16/21 07:00 164/110 (128) Nasal Cannula 2.00 02/16/21 06:53 36.3 89 15 144/97 97 I & O 02/17/21 07:00 Intake Total 500 ml Output Total 575 ml Balance -75 ml Height & Weight Height: 5'6.00" Weight: 180lbs. 5.0oz. 81.584720ae; 29.01 BMI Method:Stated General Appearance: No Apparent Distress, WD/WN HEENT: PERRL/EOMI Neck: Full Range of Motion, Non Tender Respiratory: Chest Non Tender, No Accessory Muscle Use, No Respiratory Distress, Crackles (Mid to lower lung on Left side. ) Cardiovascular: Regular Rate, Rhythm, No Edema, Normal Peripheral Pulses Capillary Refill: Greater Than 3 Seconds Extremity: Normal Capillary Refill, No Calf Tenderness Neurologic/Psychiatric: Alert, Oriented x3, campaign developer II-XII Norm as Tested Skin: Normal Color, Warm/Dry; No Rash; Other (NO EXTERNAL EVIDENCE OF TRAUMA) Results Lab Laboratory Tests 02/16/21 02:42 02/17/21 03:40 Assessment/Plan Assessment/Plan Pneumonia -- possible aspiration -Will need repeat imaging 8wks after discharge -Continue Abx -gasca cultures pending -COVID is negative -Currently on RA s/p seizure -Continue [place] Anxiety/depression SAE ALMEIDA DO Feb 17, 2021 04:55
[2021-02-17] MEDS ORDERED: MULTIVIT W/MINERALS TAB (THERAGRAN M) PO SCH (07:00)
[2021-02-17] MEDS: LEVETIRACETAM 1,000 MG/NS 100 ML IVPB IV SCH ×2 (08:07)
[2021-02-17] MEDS ORDERED: GADOBUTROL 10 MMOL/10 ML (GADAVIST) VIAL IV ONE (08:45)
[2021-02-17] MEDS ORDERED: lisINopril 10 MG (PRINIVIL) TABLET PO SCH (09:00)
[2021-02-17] MEDS ORDERED: PARoxetine 20 MG (PAXIL) TAB PO SCH (09:00)
[2021-02-17] MEDS ORDERED: NON-FORMULARY MEDICATION 1 EA EA (Multivitamin 1 EACH) PO SCH (09:00)
[2021-02-17] MEDS ORDERED: AZITHROMYCIN 500 MG/NS 250 ML IVPB IV SCH ×2 (09:00)
[2021-02-17] MEDS ORDERED: cefTRIAXone 1,000 MG/SWFI 10 ML IV PUSH IV SCH ×4 (09:00)
[2021-02-17] MEDS ORDERED: meTOprolol TARTRATE 25 MG (LOPRESSOR) TABLET PO SCH (09:00)
[2021-02-17] MEDS ORDERED: NON-FORMULARY MEDICATION 1 EA EA (Paroxetine HCl 40 MG) PO SCH (09:00)
--- NOTE | 2021-02-17 10:01 | Diagnostic Imaging Report ---
Clinical indication: Patient has had a seizure and has pneumonia. Exam: MRI of the brain performed without and with 8 cc of Gadavist IV contrast. Sequences include axial DWI, ADC map, axial T2, axial FLAIR, axial T1, axial gradient echo, coronal T2 thin, coronal FSPGR 3-D, coronal FLAIR thin, coronal FSPGR 3-D postcontrast, axial T1 post IV contrast, coronal T1 fat-sat post IV contrast, sagittal T1 post IV contrast. Comparison: MRI of the brain/pituitary performed without and with IV contrast dated 02/12/2019. Findings: There is motion artifact limiting evaluation of multiple sequences. There is no evidence of acute cerebral infarct, intracranial hemorrhage, or gross mass effect. There is no evidence of heterotopic carter matter or cortical dysplasia. There is stable slight asymmetry of the hippocampal structures with the right side slightly smaller in size than the left. There is no significant increased T2 signal involving the right side. The brain parenchymal volume appears appropriate for patient's age. 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 There is interval development of a focal area of high T2 signal involving the subcortical right frontal lobe which may be from chronic ischemic changes. There is normal carter-white matter distinction. There is no significant midline shift or herniation. The [place] vascular structures show no gross abnormality as visualized. The pituitary gland, sella, and suprasellar regions are unremarkable as visualized. Infundibulum is midline. The cavernous carotid arteries are patent. There is no evidence of hydrocephalus. The basal cisterns are unremarkable. The skull, extracranial soft tissue, and orbits are unremarkable. The paranasal sinuses are unremarkable. Temporal bones show no significant abnormality. There is mild mucosal thickening involving ethmoid sinus. Mastoid air cells are clear. IMPRESSION: 1: There is motion artifact which limits evaluation of multiple sequences limiting evaluation. 2: There is no evidence of acute intracranial process. There is no evidence of developing mass. There is no abnormal IV contrast enhancement. 3: There is stable, nonspecific slight asymmetry of the hippocampal structures with the right side slightly smaller in size than the left side with no significant increased T2 signal in the right side. Asymmetric chronic volume loss of the right temporal lobe may be better considered. Mesial temporal sclerosis is suspected to be less likely unless patient has clinical history of seizures. 4: Stable small chronic infarct involving the left midbrain region. Dictated by: Dictated on workstation # [id number]
[2021-02-17] MEDS ORDERED: ALBU18HF2 IH (11:25)
[2021-02-17] MEDS ORDERED: CEFD300C3 PO (11:25)
[2021-02-17] MEDS ORDERED: PRED10TA22 PO (11:25)
[2021-02-17] MEDS ORDERED: LEVE500T99 PO (11:25)
--- NOTE | 2021-02-17 11:25 | Discharge Summary ---
Discharge Summary Hospital Course Was the Problem List Reviewed?: Yes Problems/Dx: (1) New onset seizure Status: Acute (2) Bilateral pneumonia Status: Acute (3) Hypoxia Status: Acute (4) HTN (hypertension) Status: Acute (5) Person under investigation for COVID-19 Status: Acute Hospital Course Date of Admission: Feb 16, 2021 at 06:00 Admission Diagnosis : Family Physician/Provider: August Lindquist MD Date of Discharge: 02/17/21 Discharge Diagnosis: witnessed seizure activity, severe hypoxia, PNA Hospital Course: Short course after admitted for witnessed seizure-like activity with hypoxia and found to have PNA but COVID was negative. Cardiology consulted and placed loop recorder in. ABx tolerated and did not require home O2. Needs Neuro eval and maintained on Keppra for now BID. Labs and Pending Lab Test: Laboratory Tests 02/17/21 03:40: White Blood Count 9.1, Red Blood Count 3.79L, Hemoglobin 11.8, Hematocrit 35, Mean Corpuscular Volume 92, Mean Corpuscular Hemoglobin 31, Mean Corpuscular Hemoglobin Concent 34, Red Cell Distribution Width 13.9, Platelet Count 194, Mean Platelet Volume 10.9, Immature Granulocyte % (Auto) 0, Neutrophils (%) (Au to) 64, Lymphocytes (%) (Auto) 30, Monocytes (%) (Auto) 5, Eosinophils (%) (Auto) 0, Basophils (%) (Auto) 0, Neutrophils # (Auto) 5.8, Lymphocytes # (Auto) 2.8, Monocytes # (Auto) 0.5, Eosinophils # (Auto) 0.0, Basophils # (Auto) 0.0, Immature Granulocyte # (Auto) 0.0, Sodium Level 140, Potassium Level 3.7, Chloride Level 108H, Carbon Dioxide Level 23, Anion Gap 9, Blood Urea Nitrogen 6L, Creatinine 0.77, Estimat Glomerular Filtration Rate > 60, BUN/Creatinine Ratio 8, Glucose Level 105, Calcium Level 8.5, Corrected Calcium 8.8, Phosphorus Level 2.8, Magnesium Level 2.0, Total Bilirubin 0.5, Aspartate Amino Transf (AST/SGOT) 16, Alanine Aminotransferase (ALT/SGPT) 16, Alkaline Phosphatase 73, Total Protein 6.1L, Albumin 3.6, Procalcitonin 0.01 Microbiology 02/16/21 MRSA Screen - Final, Complete MRSA not isolated Home Meds Active Cefdinir 300 Mg Capsule 300 Mg PO BID Keppra (Levetiracetam) 500 Mg Tablet 500 Mg PO BID PRN Prednisone 10 Mg Tab.ds.pk 10 Mg PO DAILY Take 3 tabs(30mg)daily,decrease by 1 tab(10MG)daily. Ventolin Hfa (Albuterol Sulfate) 18 Gm Hfa.aer.ad 0 Gm IH RTQ6HR Reported Multivitamin 1 Each Tablet 1 Each PO DAILY Hydrocodone-Acetamin 5-325 mg (Hydrocodone/Acetaminophen) 1 Each Tablet 1 Tab PO TID PRN Lisinopril 10 Mg Tablet 10 Mg PO DAILY Metoprolol Tartrate 25 Mg Tablet 25 Mg PO DAILY LAST FILLED 11-29-2020 #60/60 DAY SUPPLY Paroxetine HCl 40 Mg Tablet 40 Mg PO DAILY Assessment/Pt Instructions PCP 1 week Discharge Planning: <30 minutes discharge planning Discharge Physical Examination Vital Signs Vital Signs Date Time Temp Pulse Resp B/P (MAP) Pulse Ox O2 Delivery O2 Flow Rate FiO2 02/17/21 09:31 98 Room Air 02/17/21 08:26 78 18 176/98 (124) 02/17/21 03:59 36.5 02/16/21 10:17 2.00 02/16/21 07:29 21 General Appearance: No Apparent Distress, WD/WN Respiratory: Lungs Clear Cardiovascular: Regular Rate, Rhythm Neurologic/Psychiatric: Alert Allergies: Coded Allergies: morphine (Verified Allergy, Unknown, 04/27/17) Discharge Summary Date of Admission Feb 16, 2021 at 06:00 Date of Discharge Discharge Date: Feb 17, 2021 Admission Diagnosis O2 Cardiology consultation IV abx Discharge Diagnosis (1) New onset seizure Status: Acute (2) Bilateral pneumonia Status: Acute (3) Hypoxia Status: Acute (4) HTN (hypertension) Status: Acute (5) Person under investigation for COVID-19 Status: Acute GERALDINE MÉNDEZ DO Feb 17, 2021 11:25
[2021-02-17] MEDS ORDERED: LIDOCAINE 1% INJ 20 ML 20 ML VIAL ONE (11:29)
--- NOTE | 2021-02-17 12:29 | Progress Note - Cardiology ---
Cardiology SOAP Progress Note Subjective: No cp or palp or syncope since admission No shortness of breath at rest No n/v/d Some gen malaise Objective: I&O/Vital Signs 02/17/21 02/17/21 02/17/21 02/17/21 01:00 01:55 03:59 06:44 Temp 36.5 Pulse 80 73 78 Resp 20 B/P (MAP) 160/85 (110) Pulse Ox 100 96 O2 Delivery Room Air Room Air 02/17/21 02/17/21 02/17/21 08:26 09:12 09:31 Pulse 78 Resp 18 B/P (MAP) 176/98 (124) Pulse Ox 97 98 98 O2 Delivery Room Air Room Air Room Air 02/16/21 23:59 Intake Total 320 ml Output Total 200 ml Balance 120 ml Weight (Pounds): 180 Weight (Ounces): 5.0 Weight (Calculated Kilograms): 81.601657 Constitutional: AAO x 3, well-developed, well-nourished Respiratory: No accessory muscle use; other (good, bilateral air entry) Cardiovascular: regular rate-rhythm, systolic murmur (soft HARINDER at card base) Gastrointestional: No tender; soft; No guarding, No rebound; audible bowel sounds Extremities: No clubbing, No cyanosis, No significant edema Neurologic/Psychiatric: oriented x 3, other (moves all limbs equally) Skin: No rash on exposed areas, No ulcerations on exposed areas Results/Procedures: Labs Laboratory Tests 02/17/21 03:40: White Blood Count 9.1, Red Blood Count 3.79L, Hemoglobin 11.8, Hematocrit 35, Mean Corpuscular Volume 92, Mean Corpuscular Hemoglobin 31, Mean Corpuscular Hemoglobin Concent 34, Red Cell Distribution Width 13.9, Platelet Count 194, Mean Platelet Volume 10.9, Immature Granulocyte % (Auto) 0, Neutrophils (%) (Auto) 64, Lymphocytes (%) (Auto) 30, Monocytes (%) (Auto) 5, Eosinophils (%) (Auto) 0, Basophils (%) (Auto) 0, Neutrophils # (Auto) 5.8, Lymphocytes # (Auto) 2.8, Monocytes # (Auto) 0.5, Eosinophils # (Auto) 0.0, Basophils # (Auto) 0.0, Immature Granulocyte # (Auto) 0.0, Sodium Level 140, Potassium Level 3.7, Chloride Level 108H, Carbon Dioxide Level 23, Anion Gap 9, Blood Urea Nitrogen 6L, Creatinine 0.77, Estimat Glomerular Filtration Rate > 60, BUN/Creatinine Ratio 8, Glucose Level 105, Calcium Level 8.5, Corrected Calcium 8.8, Phosphorus Level 2.8, Magnesium Level 2.0, Total Bilirubin 0.5, Aspartate Amino Transf (AST/SGOT) 16, Alanine Aminotransferase (ALT/SGPT) 16, Alkaline Phosphatase 73, Total Protein 6.1L, Albumin 3.6, Procalcitonin 0.01 Microbiology 02/16/21 MRSA Screen - Final, Complete MRSA not isolated A/P: Assessment: Seizure vs syncope on 02-16-21 Aspiration pneumonia after seizure / syncope of 02-16-21 H/o atrial arrhythmias: Holter monitor March [address] Michelle showed atrial tachycardia S/p ILR (placed on 02/17/21) HTN Fatigue Stress test done in December [address] Michelle which did not show any evidence of ischemia or infarct. Echocardiogram on December [address] Michelle which showed normal LV systolic function with an EF of 60 percent. No significant valvular heart disease. PA pressure was normal. Plan: * Given h/o sinus node dysfunction / atrial arrhythmias and this presentation with seizure / syncope, ILR appears reasonable. This was discussed with her, including pros and cons. She understood and provided informed consent. ILR placed * Outpt f/u advised YAZ WEEKS MD FACP [facility] Feb 17, 2021 12:29
--- NOTE | 2021-02-17 13:28 | Physical Therapy Evaluation ---
PT Evaluation-General Medical Diagnosis Admission Date Feb 16, 2021 at 06:00 Medical Diagnosis: Seizure, Hypoxia Onset Date: Feb 16, 2021 Therapy Diagnosis Therapy Diagnosis: debility Height/Weight Height (Feet): 5 Height (Inches): 6.00 Weight (Pounds): 180 Weight (Ounces): 5.0 Precautions Precautions/Isolations: Seizure, Standard Precautions Referral Physician: Rita Reason for Referral: Evaluation/Treatment Medical History Pertinent Medical History: Atrial Fib, HTN Current History EMS secondary to seizure Reviewed History: Yes Social History Home: Single Level Current Living Status: Spouse Entry Into Home: Stairs With Railing PT Steps Into Home: 2 Prior Prior Level of Function SCALE: Activities may be completed with or without assistive devices. 5-Pgtttgozmx-gfzvciy completes the activity by him/herself with no assistance from a helper. 5-Set-up or Clean-up Assistance-helper sets up or cleans up; patient completes activity. Busy assists only prior to or following the activity. 4-Supervision or Touching Assistance-helper provides verbal cues and/or touching/steadying and/or contact guard assistance as patient completes activity. Assistance may be provided throughout the activity or intermittently. 3-Partial/Moderate Assistance-helper does LESS THAN HALF the effort. Busy lifts, holds or supports trunk or limbs, but provides less than half the effort. 2-Substantial/Maximal Assistance-helper does MORE THAN HALF the effort. Busy lifts or holds trunk or limbs and provides more than half the effort. 1-Karcpjgum-lnukce does ALL the effort. Patient does none of the effort to complete the activity. Or, the assistance of 2 or more helpers is required for the patient to complete the activity. If activity was not attempted, code reason: 7-Patient Refused. 9-Not Applicable-not attempted and the patient did not perform the activity before the current illness, exacerbation or injury. 10-Not Attempted due to Environmental Limitations-(lack of equipment, weather restraints, etc.). 88-Not Attempted due to Medical Conditions or Safety Concerns. Bed Mobility: 6 Transfers (B,C,W/C): 6 Gait: 6 Stairs: 6 Indoor Mobility (Ambulation): Independent Stairs: Independent Prior Devices Use: None PT Evaluation-Current Subjective Patient reports no pain, and notes she is ready to go home. Pt/Family Goals Patient seated upright in bed post tx, in the room. Objective Patient Orientation: Normal For Age ROM/Strength ROM Upper Extremities WFL grossly ROM Lower Extremities WFL grossly Strength Upper Extremities WFL grossly Strength Lower Extremities WFL grossly Integumentary/Posture Integumentary see nursing report Sensory Vision: Functional Hearing: Functional Sensation Right Lower Extremit: Intact Sensation Left Lower Extremity: Intact Transfers Sit to Lying (QC): 6 Lying to Sitting/Side of Bed(Q: 6 Sit to Stand (QC): 6 Chair/Xwy-zj-Sqhcp Xfer(QC): 6 Gait Does the Patient Walk?: Yes Mode of Locomotion: Walk Anticipated Mode of Locomotion: Walk Walk 10 feet (QC): 6 Walk 50 ft with 2 Turns(QC): 6 Walk 150 ft (QC): 6 Distance: 500' Gait Assistive Device: None Comments/Gait Description Patient is independent with ambulation, at a comfortable speed, with no difficulty maintaining balance. Balance Sitting Static: Normal Sitting Dynamic: Normal Standing Static: Normal Standing Dynamic: Normal Assessment/Needs Patient is independent with all functional mobility, no longer in need of PT services. Rehab Potential: Good PT Plan Treatment/Plan Treatment Plan: Discontinue PT, goals met Treatment Duration: Feb 17, 2021 Frequency: 1 time per week Estimated Hrs Per Day: .25 hour per day Discharge Recommendations Therapy Discharge Recommendati: Home & Family Time/GCodes Time In: 1243 Time Out: 1251 Total Billed Treatment Time: 8 Total Billed Treatment 1 visit: EVL: 8' GIOVANNA SRIVASTAVA PT Feb 17, 2021 13:28
[2021-02-17 13:44] VITALS: BP 176/98
--- NOTE | 2021-02-17 15:21 | OPERATIVE REPORT ---
DATE OF SERVICE: 02/17/2021 PREOPERATIVE DIAGNOSIS: Syncope. POSTOPERATIVE DIAGNOSIS: Syncope. PROCEDURE: Implantable loop recorder implantation. INDICATIONS: The patient is a 50-year-old lady, who has been experiencing syncope. Implantable loop recorder implantation was carried out after having obtained an informed consent. [facility]. The left prepectoral area was prepared and draped in the usual sterile fashion. Lidocaine 1% was used for local anesthesia. The tools provided with the Bundle Reveal LINQ device were used to make a pocket anterior to the fourth intercostal space into which the device was placed. The serial number of the device is [id number]. The wound edges were closed using Dermabond and Steri-Strips. She tolerated the procedure well. Job ID: [id number] DocumentID: [id number] Dictated Date: 02/17/2021 12:23:20 Clerical Stock Inspector Date: 02/17/2021 15:20:23 Dictated By: YAZ WEEKS MD, MA, FACP, FACC,
[2021-02-17 16:17] VITALS: BP 167/90
== END 2021-02-17 15:55 | disposition home or self-care (01) | DRG 40 ==
LOC: EDUNIT# 02:33 → ER 02:36 → ICU 06:00 → CSD 11:14
PROVIDERS: ADMIT Internal Medicine; ATTEND Internal Medicine
PROC: 0JH632Z Insertion of Monitoring Device into Chest Subcutaneous Tissue and Fascia, Percutaneous Approach (ICD-10-PCS; principal; 2021-02-17)
DX: R56.9 Unspecified convulsions (principal); J69.0 Pneumonitis due to inhalation of food and vomit; E87.2 Acidosis; R55 Syncope and collapse; Z88.5 Allergy status to narcotic agent; I48.91 Unspecified atrial fibrillation; E78.00 Pure hypercholesterolemia, unspecified; G43.909 Migraine, unspecified, not intractable, without status migrainosus; G89.29 Other chronic pain; M54.2 Cervicalgia; M25.561 Pain in right knee; M54.9 Dorsalgia, unspecified; F41.9 Anxiety disorder, unspecified; F32.9 Major depressive disorder, single episode, unspecified; Z20.822 Contact with and (suspected) exposure to COVID-19; R09.02 Hypoxemia; Z86.73 Personal history of transient ischemic attack (TIA), and cerebral infarction without residual deficits; R53.83 Other fatigue; R00.0 Tachycardia, unspecified
CPT/HCPCS: 33285; 36415; 70450; 70553; 71045; 71275; 72125; 80053; 80306; 80320; 80329; 81000; 82150; 82550; 82553; 82805; 83605; 83615; 83690; 83735; 83874; 83880; 84100; 84145; 84443; 84484; 84702; 84703; 85025; 85610; 85652; 85730; 86141; 87081; 87635; 87804; 93005; 93041; 94640; 94664; 94761

== ENCOUNTER 2021-03-15 13:02 | Emergency (ER) | payer OTHER ==
[~2021-03-15] VITALS: Ht 168 cm; Wt 82.0 kg
[~2021-03-15 13:02] MED LIST changes: +ACHD5005 PO; +ALBU18HF2 IH; +LEVE500T99 PO; +LISI10TA25 PO; +MULT-1136 PO; +PRED10TA22 PO
--- NOTE | 2021-03-15 13:48 | ED General ---
General Chief Complaint: Respiratory Problems Stated Complaint: CHEST TIGHTNESS, L ARM PAIN,COUGH, SOB Nursing Triage Note: PT STATES CHEST TIGHTNESS, SOB, AND PAIN IN HER BACK WORSE THIS MORNING BUT NOT FEELING RIGHT SINCE HAVING DOUBLE PNEUMONIA ABOUT ONE MONTH AGO. HEADACHE AND LLQ PAIN. Nursing Sepsis Screen: No Definite Risk Source of Information: Patient Exam Limitations: No Limitations History of Present Illness Date Seen by Provider: Mar 15, 2021 Time Seen by Provider: 13:35 Initial Comments Patient is a 50-year-old female who presents to the emergency department today with a chief complaint of not feeling "right". Patient states that she has not been feeling like herself since she had bilateral pneumonia about 1 month ago. Patient states this morning at around 8:00 she woke up with a mild headache. She also had some chest tightness some shortness of breath and pain down the entire left side of her body. Patient states that she feels "fuzzy" and cannot really remember things as well as she used to. She was diagnosed with seizures when she was in the hospital with her bilateral pneumonia and placed on Keppra. She has not had follow-up with her primary care physician since that admission. Patient states she feels a little short of breath. She feels a little nauseated. Patient states that "I got scared" and this prompted her to come to the emergency department this afternoon. She states she feels like the entire left side of her body is a little bit weak. Review of the medical record shows that the patient had CTs of the head neck chest when she was diagnosed with her pneumonia. She also had a brain MRI. Brain MRI showed no concerning findings for tumors. 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 No other concerning findings. Patient tells me she ran out of her Keppra about 3 days ago and has not refilled it. All other review of systems reviewed and negative except as stated above. Timing/Duration: 4-6 Hours Severity: Mild Associated Systoms: Chest Pain, Cough, Headaches, Malaise, Nausea/Vomiting, Shortness of Air, Weakness Allergies and Home Medications Allergies Coded Allergies: morphine (Verified Allergy, Unknown, 04/27/17) Home Medications Albuterol Sulfate 18 Gm Hfa.aer.ad, 0 GM IH RTQ6HR Prescribed by: GERALDINE MÉNDEZ on 02/17/21 1125 Cefdinir 300 Mg Capsule, 300 MG PO BID Prescribed by: GERALDINE MÉNDEZ on 02/17/21 1125 Hydrocodone/Acetaminophen 1 Each Tablet, 1 TAB PO TID PRN for PAIN-MODERATE (5- 7), (Reported) Levetiracetam 500 Mg Tablet, 500 MG PO BID PRN Prescribed by: GERALDINE MÉNDEZ on 02/17/21 1125 Lisinopril 10 Mg Tablet, 10 MG PO DAILY, (Reported) Metoprolol Tartrate 25 Mg Tablet, 25 MG PO DAILY, (Reported) LAST FILLED 11-29-2020 #60/60 DAY SUPPLY Multivitamin 1 Each Tablet, 1 EACH PO DAILY, (Reported) Paroxetine HCl 40 Mg Tablet, 40 MG PO DAILY, (Reported) Prednisone 10 Mg Tab.ds.pk, 10 MG PO DAILY Take 3 tabs(30mg)daily,decrease by 1 tab(10MG)daily. Prescribed by: GERALDINE MÉNDEZ on 02/17/21 1125 Patient Home Medication List Home Medication List Reviewed: Yes Review of Systems Review of Systems Constitutional: see HPI EENTM: ear pain (left ear) Respiratory: cough, short of breath Cardiovascular: chest pain ("tightness") Gastrointestinal: abdominal pain, nausea Genitourinary: no symptoms reported Musculoskeletal: no symptoms reported Skin: no symptoms reported Psychiatric/Neurological: Headache, Weakness All Other Systems Reviewed Negative Unless Noted: Yes Past Fgnoxcn-Jzhrkh-Nacrai Hx Patient Social History Alcohol Use: Denies Use Drug of Choice: DENIES 2nd Hand Smoke Exposure: No Recent Infectious Disease Expo: No Recent Hopitalizations: Yes (JANUARY 2021) Immunizations Up To Date Tetanus Booster (TDap): More than 5yrs PED Vaccines UTD: Yes Date of Pneumonia Vaccine: Dec 30, 2015 Seasonal Allergies Seasonal Allergies: No Past Medical History Surgeries: Yes (WISDOM TEETH) Respiratory: Yes Pneumonia Cardiac: Yes (tachycardia, LOOP RECORDER PLACED) Atrial Fibrillation, High Cholesterol, Hypertension, Irregular Heartbeat Neurological: Yes Concussion, Headaches /Migraines, Stroke 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 Disorders: No 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 Disorders: Denies [employer] History: Menopausal Sexually Transmitted Disease: No Genitourinary: No Gastrointestinal: No Musculoskeletal: Yes (CHRONIC NECK PAIN; CHRONIC RIGHT KNEE PAIN/TORN MENISCUS PER MRI 01/26/21) Scoliosis, Chronic Back Pain Endocrine: No HEENT: No Cancer: No Psychosocial: Yes Anxiety, Depression Integumentary: No Recent Skin Changes Blood Disorders: No Family Medical History Cardiovascular disease FH: breast cancer 19 MOTHER (METS) FH: lung cancer 19 FATHER FHx: mental retardation G8 BROTHER Myocardial infarction 19 FATHER (X2) Heart Disease, Cancer Physical Exam Vital Signs Vital Signs - First Documented 03/15/21 13:21 Temp 36.7 Pulse 94 Resp 18 B/P (MAP) 154/110 (125) Pulse Ox 99 O2 Delivery Room Air Capillary Refill : Less Than 3 Seconds Height, Weight, BMI Height: 5'6.00" Weight: 180lbs. 5.0oz. 81.399573ah; 29.00 BMI Method:Stated General Appearance: No Apparent Distress, WD/WN HEENT: PERRL/EOMI, TMs Normal, Normal ENT Inspection Neck: Normal Inspection, Supple Respiratory: Lungs Clear, Normal Breath Sounds, No Accessory Muscle Use, No Respiratory Distress Cardiovascular: Regular Rate, Rhythm, Normal Peripheral Pulses Gastrointestinal: Normal Bowel Sounds, Soft, Tenderness (mild tenderness to plapation left flank) Extremity: Normal Capillary Refill, Normal Inspection, Normal Range of Motion, No Calf Tenderness Neurologic/Psychiatric: Alert, Oriented x3, No Motor/Sensory Deficits, saw straightener II- XII Norm as Tested, Depressed Affect, Motor Weakness (left side - inconsistent effort with the left side on motor stength testing) Skin: Normal Color, Warm/Dry Progress/Results/Core Measures Suspected Sepsis Recent Fever Within 48 Hours: No Infection Criteria Present: Documented Infection New/Unexplained Altered Menta: No Sepsis Screen: No Definite Risk SIRS Temperature: Pulse: 94 Respiratory Rate: 18 Laboratory Tests 03/15/21 13:40: White Blood Count 6.8 Blood Pressure 154 /110 Mean: 125 Laboratory Tests 03/15/21 13:40: Creatinine 0.87, Platelet Count 247 Results/Orders Lab Results Laboratory Tests Test 03/15/21 13:40 Range/Units White Blood Count 6.8 4.3-11.0 10^3/uL Red Blood Count 4.75 3.80-5.11 10^6/uL Hemoglobin 14.7 11.5-16.0 g/dL Hematocrit 44 35-52 % Mean Corpuscular Volume 94 80-99 fL Mean Corpuscular Hemoglobin 31 25-34 pg Mean Corpuscular Hemoglobin Concent 33 32-36 g/dL Red Cell Distribution Width 13.2 10.0-14.5 % Platelet Count 247 130-400 10^3/uL Mean Platelet Volume 9.9 9.0-12.2 fL Immature Granulocyte % (Auto) 0 % Neutrophils (%) (Auto) 77 H 42-75 % Lymphocytes (%) (Auto) 17 12-44 % Monocytes (%) (Auto) 4 0-12 % Eosinophils (%) (Auto) 2 0-10 % Basophils (%) (Auto) 0 0-10 % Neutrophils # (Auto) 5.2 1.8-7.8 X 10^3 Lymphocytes # (Auto) 1.2 1.0-4.0 X 10^3 Monocytes # (Auto) 0.3 0.0-1.0 X 10^3 Eosinophils # (Auto) 0.1 0.0-0.3 10^3/uL Basophils # (Auto) 0.0 0.0-0.1 10^3/uL Immature Granulocyte # (Auto) 0.0 0.0-0.1 10^3/uL Sodium Level 139 135-145 MMOL/L Potassium Level 4.0 3.6-5.0 MMOL/L Chloride Level 102 98-107 MMOL/L Carbon Dioxide Level 24 21-32 MMOL/L Anion Gap 13 5-14 MMOL/L Blood Urea Nitrogen 11 7-18 MG/DL Creatinine 0.87 0.60-1.30 MG/DL Estimat Glomerular Filtration Rate > 60 BUN/Creatinine Ratio 13 Glucose Level 112 H 70-105 MG/DL Calcium Level 9.9 8.5-10.1 MG/DL Troponin I < 0.028 <0.028 NG/ML My Orders Orders - SILKE LEWIS MD Ekg Tracing (03/15/21 13:49) Chest Pa/Lat (2 View) (03/15/21 13:49) Cbc With Automated Diff (03/15/21 13:49) Basic Metabolic Panel (03/15/21 13:49) Troponin I (03/15/21 13:49) Ketorolac Injection (Toradol Injection) (03/15/21 14:15) Medications Given in ED Current Medications Medications Dose Ordered Sig/Lyndsay Route Start Time Stop Time Status Last Admin Dose Admin Ketorolac Tromethamine 15 mg ONCE ONCE IVP 03/15/21 14:15 03/15/21 14:16 DC 03/15/21 14:34 15 MG Vital Signs/I&O 03/15/21 03/15/21 13:21 14:34 Temp 36.7 36.7 Pulse 94 Resp 18 B/P (MAP) 154/110 (125) Pulse Ox 99 O2 Delivery Room Air Capillary Refill : Less Than 3 Seconds Blood Pressure Mean: 125 ECG Initial ECG Impression Date: Mar 15, 2021 Initial ECG Impression Time: 13:40 Initial ECG Rate: 89 Initial ECG Rhythm: Normal Sinus Initial ECG Intervals: Normal Initial ECG Impression: Normal Initial ECG Comparisson: Unchanged Diagnostic Imaging Diagonstic Imaging: Xray Plain Films/CT/US/NM/MRI: chest Comments [facility], [place] NAME: JC DUGAN [facility] REC#: [id number] PT STATUS: REG ER : 1970 PHYSICIAN: SILKE LEWIS MD ADMIT DATE: 03/15/21/ER Draft Date of Exam:03/15/21 CHEST PA/LAT (2 VIEW) PATIENT HISTORY: Chest tightness, SOB, cough. TECHNIQUE: Two views of the chest. COMPARISON: 02/16/2021. FINDINGS: The lung volumes are normal. No focal consolidation is seen. Aeration is improved since the prior exam. No large pleural effusion or pneumothorax is seen. The cardiomediastinal silhouette is normal in size and contour. A engine monitor device is noted. No acute osseous abnormality is seen. IMPRESSION: No acute pulmonary abnormality. Aeration is improved since the prior study. Dictated on workstation # [id number] Dict: 03/15/21 1426 Trans: 03/15/21 1432 [facility] [id number] Interpreted by: KATHRINE CHUN MD Electronically signed by: Departure Impression Primary Impression: Atypical chest pain Additional Impression: Headache Qualified Codes: R51.9 - Headache, unspecified Disposition: 01 HOME, SELF-CARE Condition: Stable Departure-Patient Inst. Decision time for Depature: 15:02 Referrals: [facility]/ (PCP) Primary Care Physician RENETTA CARPIO MD (Family) Primary Care Physician Patient Instructions: Headache, Adult ED, Chest Pain That Is Not Caused by the Heart (DC) Add. Discharge Instructions: Continue your daily medications as previously prescribed. Drink plenty of fluids to stay well-hydrated. You can take [id number] Aleve, 2 pills, twice daily with food as needed for headache. Please follow-up with your primary care physician, Dr. Carpio. Come back to the emergency department if you have any new, worsening or emergent complaints. SILKE LEWIS MD Mar 15, 2021 13:48
[2021-03-15 13:58] LABS: BASOPHILS % (AUTO) 0 % (0-10); EOSINOPHILS # (AUTO) 0.1 10^3/uL (0.0-0.3); EOSINOPHILS % (AUTO) 2 % (0-10); HEMATOCRIT 44 % (35-52); HEMOGLOBIN 14.7 g/dL (11.5-16.0); LYMPHOCYTES # (AUTO) 1.2 X 10^3 (1.0-4.0); LYMPHOCYTES % (AUTO) 17 % (12-44); MEAN CORPUSCULAR HEMOGLOBIN 31 pg (25-34); MEAN CORPUSCULAR HGB CONC 33 g/dL (32-36); MEAN CORPUSCULAR VOLUME 94 fL (80-99); MEAN PLATELET VOLUME 9.9 fL (9.0-12.2); MONOCYTES # (AUTO) 0.3 X 10^3 (0.0-1.0); MONOCYTES % (AUTO) 4 % (0-12); NEUTROPHILS # (AUTO) 5.2 X 10^3 (1.8-7.8); NEUTROPHILS % (AUTO) 77 % (42-75); PLATELET COUNT 247 10^3/uL (130-400); WHITE BLOOD COUNT 6.8 10^3/uL (4.3-11.0)
[2021-03-15 14:13] LABS: CHLORIDE 102 MMOL/L (98-107); SODIUM 139 MMOL/L (135-145)
[2021-03-15 14:14] LABS: CALCIUM 9.9 MG/DL (8.5-10.1)
[2021-03-15 14:15] LABS: GLUCOSE 112 MG/DL (70-105)
[2021-03-15] MEDS ORDERED: KETOROLAC 30 MG/ML VIAL IVP ONE (14:15)
[2021-03-15 14:16] LABS: CARBON DIOXIDE 24 MMOL/L (21-32)
[2021-03-15 14:19] LABS: CREATININE SERUM 0.87 MG/DL (0.60-1.30); GFR ESTIMATED > 60
[2021-03-15 14:20] LABS: BUN/CREATININE RATIO 13
--- NOTE | 2021-03-15 14:32 | Diagnostic Imaging Report ---
PATIENT HISTORY: Chest tightness, SOB, cough. TECHNIQUE: Two views of the chest. COMPARISON: 02/16/2021. FINDINGS: The lung volumes are normal. No focal consolidation is seen. Aeration is improved since the prior exam. No large pleural effusion or pneumothorax is seen. The cardiomediastinal silhouette is normal in size and contour. A rn cardiac cath device is noted. No acute osseous abnormality is seen. IMPRESSION: No acute pulmonary abnormality. Aeration is improved since the prior study. Dictated by: Dictated on workstation # [id number]
[2021-03-15 15:11] VITALS: BP 144/83
== END 2021-03-15 15:10 | disposition home or self-care (01) ==
LOC: EDUNIT# 13:02 → ER 13:04
DX: R07.89 Other chest pain (principal); R51.9 Headache, unspecified; F32.9 Major depressive disorder, single episode, unspecified; F41.9 Anxiety disorder, unspecified; I10 Essential (primary) hypertension; G89.29 Other chronic pain; M54.9 Dorsalgia, unspecified; Z88.5 Allergy status to narcotic agent; Z86.73 Personal history of transient ischemic attack (TIA), and cerebral infarction without residual deficits; Z82.49 Family history of ischemic heart disease and other diseases of the circulatory system; Z79.52 Long term (current) use of systemic steroids; Z79.891 Long term (current) use of opiate analgesic
CPT/HCPCS: 36415; 71046; 80048; 84484; 85025; 93005

== ENCOUNTER → 2021-05-10 | Outpatient (CLI) | payer OTHER ==
[~2021-05-10] MED LIST changes: +REGADENOSON 0.4 MG/5 ML SYR (LEXISCAN) IV ONE
[2021-05-10] MEDS: CATHETER FLUSH 10 ML SYR IV PRN ×2 (11:48→13:22)
[2021-05-10 13:21] VITALS: BP 152/100
--- NOTE | 2021-05-10 18:08 | STRESS TEST ---
DATE OF SERVICE: 05/10/2021 RESTING AND POST REGADENOSON TECHNETIUM-99M TETROFOSMIN SPECT CT IMAGING ORDERING PHYSICIAN: Dr. Jones. PRIMARY PHYSICIAN: [facility]. CLINICAL DIAGNOSIS: Chest discomfort. Baseline images were carried out after injection of 9.9 mCi of technetium-99m Tetrofosmin. This was followed by 0.4 mg Regadenoson and 29.9 mCi of technetium-99m Tetrofosmin for stress imaging. The electrocardiogram showed sinus rhythm at baseline. It did not change significantly with the Regadenoson infusion. Review of images at rest and following stress does not indicate any significant perfusion defects consistent with significant myocardial ischemia or infarction. Gated images show normal global left ventricular systolic function with a normal regional wall motion. Left ventricular ejection fraction is calculated to be 61%. Left ventricular end diastolic volume is 32 mL. TID is absent (1). CONCLUSIONS: 1. No evidence of any significant myocardial ischemia or infarction. 2. Normal regional wall motion. 3. Normal global left ventricular systolic function with a calculated ejection fraction of 61%. Job ID: [id number] DocumentID: [id number] Dictated Date: 05/10/2021 16:23:15 Obstetrics Tech Date: 05/10/2021 18:08:00 Dictated By: YAZ JONES MD, MA, FACP, FACC,
== END ==
LOC: CARD 11:00
PROVIDERS: ATTEND Internal Medicine Cardiovascular Disease
DX: R00.2 Palpitations (principal); R07.89 Other chest pain
CPT/HCPCS: 78452; 93017; 93306; A9502

== ENCOUNTER 2022-02-15 07:49 | Emergency (ER) | payer SELFPAY ==
[~2022-02-15] VITALS: Ht 167.7 cm; Wt 81.8 kg
[~2022-02-15 07:49] MED LIST changes: +CYCL10TA25 PO; -LISI1TAB26 PO; +LISI1TAB48 PO; -REGADENOSON 0.4 MG/5 ML SYR (LEXISCAN) IV ONE
--- NOTE | 2022-02-15 08:25 | ED Back Pain ---
General Chief Complaint: Back Problems Stated Complaint: BACK PAIN Nursing Triage Note: AMB TO ED WITH C/O R SIDE BACK PAIN SINCE LAST NIGHT OTC PAIN MEDS NOT HELPING. HAS BAD KNEE ON R SIDE THAT SHE NEED A TOTAL KNEE. Source of Information: Patient Exam Limitations: No Limitations History of Present Illness Date Seen by Provider: Feb 15, 2022 Time Seen by Provider: 08:08 Initial Comments Patient presents ER by private conveyance with severe right-sided back pain radiating down to the level of her buttock since last night. No falls or trauma. She has a bad right knee and has been told by a surgeon in [place] that she needs it replaced. She took some ibuprofen without relief. Stated allergy to morphine includes the side effects. She is not having numbness or tingling or saddle anesthesia weakness or falls but she is having urinary incontinence when she lifts something heavy or stands up for the past couple weeks. No diarrhea constipation fevers chills cough shortness of air chest pain or fever. No previous imaging of her back. Primary care by [facility]. Allergies and Home Medications Allergies Coded Allergies: morphine (Verified Allergy, Unknown, 04/27/17) Patient Home Medication List Home Medication List Reviewed: Yes Albuterol Sulfate (Ventolin Hfa) 18 Gm Hfa.aer.ad, 0 GM IH RTQ6HR Prescribed by: GERALDINE MÉNDEZ on 02/17/21 112 Cefdinir (Cefdinir) 300 Mg Capsule, 300 MG PO BID Prescribed by: GERALDINE MÉNDEZ on 02/17/21 1125 Hydrocodone/Acetaminophen (Hydrocodone-Acetamin 5-325 mg) 1 Each Tablet, 1 TAB PO TID PRN for PAIN-MODERATE (5-7), (Reported) Entered as Reported by: ELIS FRANKLIN on 02/16/21 1132 Levetiracetam (Keppra) 500 Mg Tablet, 500 MG PO BID PRN Prescribed by: GERALDINE MÉNDEZ on 02/17/21 1125 Lisinopril (Lisinopril) 10 Mg Tablet, 10 MG PO DAILY, (Reported) Entered as Reported by: ELIS FRANKLIN on 02/16/21 1132 Metoprolol Tartrate (Metoprolol Tartrate) 25 Mg Tablet, 25 MG PO DAILY, (Repor avinash) Entered as Reported by: ELIS FRANKLIN on 02/16/21 1132 Multivitamin (Multivitamin) 1 Each Tablet, 1 EACH PO DAILY, (Reported) Entered as Reported by: ELIS FRANKLIN on 02/16/21 1132 Paroxetine HCl (Paroxetine HCl) 40 Mg Tablet, 40 MG PO DAILY, (Reported) Entered as Reported by: FREIDA HILL on 12/29/15 0907 Prednisone (Prednisone) 10 Mg Tab.ds.pk, 10 MG PO DAILY Prescribed by: GERALDINE MÉNDEZ on 02/17/21 1125 Review of Systems Constitutional: No chills, No diaphoresis EENTM: No ear discharge, No ear pain Respiratory: No cough, No short of breath Cardiovascular: No chest pain, No edema Gastrointestinal: No abdominal pain, No nausea, No vomiting Genitourinary: No discharge, No dysuria; incontinence (stress) : No Musculoskeletal: back pain; No joint pain Skin: No change in color, No change in hair/nails All Other Systems Reviewed Negative Unless Noted: Yes Past Hfqrmpz-Hxofdb-Yfkqvq Hx Patient Social History Tobacco Use?: No Immunizations Up To Date Tetanus Booster (TDap): More than 5yrs PED Vaccines UTD: Yes Seasonal Allergies Seasonal Allergies: No Past Medical History Surgeries: Yes (WISDOM TEETH) Respiratory: Yes Pneumonia Cardiac: Yes (tachycardia, LOOP RECORDER PLACED) Atrial Fibrillation, High Cholesterol, Hypertension, Irregular Heartbeat Neurological: Yes Concussion, Headaches /Migraines, Stroke 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 Disorders: No 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 Disorders: Denies [employer] History: Menopausal Sexually Transmitted Disease: No Genitourinary: No Gastrointestinal: No Musculoskeletal: Yes (CHRONIC NECK PAIN; CHRONIC RIGHT KNEE PAIN/TORN MENISCUS PER MRI 01/26/21) Scoliosis, Chronic Back Pain Endocrine: No HEENT: No Cancer: No Psychosocial: Yes Anxiety, Depression Integumentary: No Recent Skin Changes Blood Disorders: No Family Medical History Cardiovascular disease FH: breast cancer 19 MOTHER (METS) FH: lung cancer 19 FATHER FHx: mental retardation G8 BROTHER Myocardial infarction 19 FATHER (X2) Heart Disease, Cancer Physical Exam Vital Signs Vital Signs - First Documented 02/15/22 07:52 Temp 35.3 Pulse 86 Resp 18 B/P (MAP) 183/125 (144) Pulse Ox 96 Capillary Refill : Less Than 3 Seconds Height, Weight, BMI Height: 5'6.00" Weight: 180lbs. 5.0oz. [id number]; 29.00 BMI Method:Stated General Appearance: WD/WN, Moderate Distress HEENT: PERRL/EOMI, Moist Mucous Membranes Neck: Full Range of Motion, Normal Inspection, Non Tender Cardiovascular: Regular Rate, Rhythm, Normal Peripheral Pulses Respiratory: No Accessory Muscle Use, No Respiratory Distress Back: Normal Inspection, Muscle Spasm (Right paralumbar), Vertebral Tenderness (Midline upper lumbar lower thoracic tenderness to palpation as well as right paraspinous muscle tenderness and spasm.) Extremity: Normal Capillary Refill, Normal Inspection, No Pedal Edema Neurologic/Psychiatric: Alert, Oriented x3, No Motor/Sensory Deficits Skin: Normal Color, Warm/Dry Progress/Results/Core Measures Results/Orders Lab Results Laboratory Tests Test 02/15/22 08:20 Range/Units Urine Color YELLOW Urine Clarity CLEAR Urine pH 6.0 5-9 Urine Specific [place] 1.025 H 1.016-1.022 Urine Protein TRACE H NEGATIVE Urine Glucose (UA) NEGATIVE NEGATIVE Urine Ketones NEGATIVE NEGATIVE Urine Nitrite NEGATIVE NEGATIVE Urine Bilirubin NEGATIVE NEGATIVE Urine Urobilinogen 0.2 < = 1.0 MG/DL Urine Leukocyte Esterase NEGATIVE NEGATIVE Urine RBC (Auto) 3+ H NEGATIVE Urine RBC 50-100 H /HPF Urine WBC 0-2 /HPF Urine Squamous Epithelial Cells 5-10 /HPF Urine Crystals NONE /LPF Urine Bacteria FEW H /HPF Urine Casts NONE /LPF Urine Mucus MODERATE H /LPF Urine Culture Indicated YES My Orders Orders - RHONDA SEGURA Ua Culture If Indicated (02/15/22 08:19) Ct Thoracic/Lumbar Spine Wo (02/15/22 08:19) Ketorolac Injection (Toradol Injection) (02/15/22 08:30) Urine Culture (02/15/22 08:20) Ct Abd/Pelvis Wo(Kidney Stone) (02/15/22 11:24) Methylprednisolone Sod Succ (Solu-Medrol (02/15/22 11:30) Medications Given in ED Current Medications Medications Dose Ordered Sig/Lyndsay Route Start Time Stop Time Status Last Admin Dose Admin Ketorolac Tromethamine 60 mg ONCE ONCE IM 02/15/22 08:30 02/15/22 08:31 DC 02/15/22 08:30 60 MG Methylprednisolone Sodium Succinate 125 mg ONCE ONCE IM 02/15/22 11:30 02/15/22 11:31 DC 02/15/22 11:38 125 MG Vital Signs/I&O 02/15/22 07:52 Temp 35.3 Pulse 86 Resp 18 B/P (MAP) 183/125 (144) Pulse Ox 96 Blood Pressure Mean: 144 Progress Progress Note #1: Time: 08:24 Progress Note Likely it is just stress incontinence however it is temporal timing with the onset of her right back pain would be concerning so a CT to rule out a significant cauda equina syndrome has been ordered. Toradol for her pain and ur inalysis to rule out infection. Progress Note #2: Time: 11:25 Progress Note She does have significant lumbar arthropathy which would explain her pain and sciatica. However with the significant amount of blood in her urine and her not being on her menses we are concerned for a kidney stone. We can see renal stones but no ureteral stones on the CT. We discussed with her and she is okay with repeating a CT looking for kidney stones. If there are no kidney stone seen and will cover her with some Macrobid and have her follow-up 2 to 4 weeks for repeat urinalysis for her hematuria. Solu-Medrol 125 mg for her lumbago and we discussed conservative management, weight loss, physical therapy, NSAIDs and steroids for her back. Patient says she feels the edge has come off after the Toradol shot. Diagnostic Imaging Diagonstic Imaging: CT Plain Films/CT/US/NM/MRI: other (Thoracolumbar spine) Comments NAME: JC DUGAN [facility] REC#: [id number] PT STATUS: REG ER : 1970 PHYSICIAN: RHONDA SEGURA MD ADMIT DATE: 02/15/22/ER Draft Date of Exam:02/15/22 CT THORACIC/LUMBAR SPINE WO CLINICAL INDICATION: Patient with urinary incontinence and right paraspinal lumbar spine pain. EXAM: Axial CT scan of the thoracic and lumbar spine performed without IV contrast. Sagittal and coronal reformations were performed. Bone and soft tissue windows were created. Auto Exposure Controls were utilized during the CT exam to meet ALARA standards for radiation dose reduction. COMPARISON: None. FINDINGS: Thoracic spine: There is no acute thoracic spine fracture or dislocation. There are mild to moderately hypertrophic spurs anteriorly involving the thoracic spine, most pronounced in the mid to lower thoracic region. There is no significant bony central canal stenosis. There is a mild to moderate narrowing involving the mid thoracic spine. There is severe right T3-T4 neuroforaminal narrowing due to facet arthropathy. There is moderate to severe right T4-T5 and T5-T6 neuroforaminal narrowing due to facet arthropathy. There is no significant paraspinal soft tissue abnormality. There are small patchy groundglass areas of opacification involving the medial right lung base. Lumbar spine: There is a nondisplaced pars defect involving the right L1 vertebra which appears to have corticated margins and may be late subacute or chronic. There is no bony bridging. The left pars interarticularis region is intact. There is very subtle (if any) retrolisthesis of L1 on L2. Otherwise, there is no acute lumbar spine fracture. There are degenerative spurs involving the lumbar spine, most pronounced involving the lower lumbar region. T12-L1: There is a small right paracentral disk herniation with calcification which causes no significant central canal stenosis. There is no significant bony neuroforaminal narrowing. L1-L2: There is mild bilateral facet arthropathy. There is no significant bony central canal or neuroforaminal narrowing. L2-L3: There is mild diffuse disk bulge. There is no significant central spinal canal or neuroforaminal narrowing. L3-L4: There is a diffuse disk bulge with mild to moderate loss of disk space height. There is mild to moderate right neuroforaminal narrowing. There is at least mild central canal narrowing. There is no significant left neuroforaminal narrowing. L4-L5: There is diffuse disk bulge with moderate loss of disk space height. There are disk spurs extending into the right foraminal region. There is moderate to severe right neuroforaminal narrowing. There is mild left neuroforaminal narrowing. There is moderate bilateral facet arthropathy/hypertrophy. There appears to be at least moderate central canal stenosis. L5-S1: There is a diffuse disk bulge with disk spurs extending into the left foraminal region. There is severe left neuroforaminal narrowing. There is no significant right neuroforaminal narrowing. There is no significant central canal stenosis. IMPRESSION: 1: There is no evidence of acute thoracic spine or lumbar spine fracture. 2: There is a late subacute or chronic left L1 vertebral body spondylolysis. There is subtle (if any) retrolisthesis of L1 on L2. Nonemergent x-ray flexion and extension views of the lumbar spine would help better evaluate. 3: There is a T12-L1 small right paracentral disk bulge or calcification with no significant central canal stenosis. 4: There is multilevel thoracic and lumbar spine degenerative disease, as described above. A nonemergent MRI of the thoracic and lumbar spine would better evaluate for degree of central canal stenosis. 5: There is a small area of patchy groundglass opacification involving the medial right lower lobe. Lung infiltrates/infectious process may be considered. Clinical correlation is suggested. Dictated on workstation # [id number] Dict: 02/15/22 0854 Trans: 02/15/22 0918 [id number] Interpreted by: GURPREET LUCIA MD Electronically signed by: Reviewed: Reviewed by Me Diagonstic Imaging: CT Plain Films/CT/US/NM/MRI: abdomen, pelvis Comments NAME: JC DUGAN [facility] REC#: [id number] PT STATUS: REG ER : 1970 PHYSICIAN: RHONDA SEGURA MD ADMIT DATE: 02/15/22/ER Signed Date of Exam:02/15/22 CT ABD/PELVIS WO(KIDNEY STONE) CT ABD/PELVIS WO (KIDNEY STONE) TECHNIQUE: Unenhanced CT imaging of the abdomen and pelvis was performed. 2-D reformats are created and submitted for interpretation. Automatic exposure controls were utilized to optimize patient dose. INDICATION: Flank pain. COMPARISON: Thoracic and lumbar spine CT performed same day. FINDINGS: Evaluation of the abdominal viscera is mildly limited without contrast. Lower chest: Patchy ground-glass opacities are present in the right lung base. Peritoneum: No free intraperitoneal air or fluid. Liver and biliary system: Diffuse hypoattenuation of the liver is indicative of hepatic steatosis. There is focal fatty sparing around the gallbladder fossa. No concerning focal hepatic lesion, and the liver does not have nodularity of the surface that would suggest cirrhosis. The gallbladder is normal. No biliary duct dilation. Spleen and Pancreas: Spleen is normal. Unenhanced pancreas is grossly normal. Adrenals: Normal. tract: Punctate nonobstructing 2 mm stones are present in the upper pole of the left kidney. No right renal stones. No renal mass or obstructive uropathy. Urinary bladder is decompressed, limiting assessment. Uterus and ovaries are physiologic in appearance with a dominant left ovarian follicle. GI tract: Stomach is decompressed. No bowel obstruction. No pericolonic inflammatory changes. Normal appendix. Vasculature and Lymph nodes: Normal caliber aorta has scattered atherosclerotic plaquing. No abdominal or pelvic lymphadenopathy. Musculoskeletal: No concerning osseous lesion. Please see report for the CT lumbar spine from earlier same day for details of this visualized anatomy. IMPRESSION: 1. Punctate nonobstructing 2 mm stones are present in the upper pole of the left kidney. No ureteral stones or obstructive uropathy. 2. Patchy ground-glass opacities in the right lung base are likely due to an infectious process. Dictated by: Dictated on workstation # [id number] Dict: 02/15/22 1231 Trans: 02/15/22 1243 [id number] Interpreted by: ZOLTAN AGUILAR MD Electronically signed by: ZOLTAN AGUILAR MD 02/15/22 1243 Reviewed: Reviewed by Me Departure Impression Primary Impression: Lumbar radiculopathy Additional Impressions: Sciatica Qualified Codes: M54.31 - Sciatica, right side Hematuria Qualified Codes: R31.21 - Asymptomatic microscopic hematuria Disposition: 01 HOME, SELF-CARE Condition: Stable Departure-Patient Inst. Decision time for Depature: 13:00 Referrals: RENETTA CARPIO MD (PCP/Family) Primary Care Physician ANIKT LAURETN MD, ELIAS A MD Patient Instructions: Sciatica (DC), Blood in the Urine (Hematuria), Adult ( DC), Sciatica Exercises Add. Discharge Instructions: You have a couple pinched nerves in your low back which are causing your pain. We are going to use steroids and naproxen anti-inflammatory pain medicine to reduce the inflammation and therefore your pain. Naproxen 500 mg twice a day for 2 weeks. Take this even if you do not feel improvement in your symptoms. Medrol Dosepak, take as directed. Tylenol 1000 mg every 8 hours as necessary for pain. Topical creams such as icy hot or heating pads as necessary for pain. Drink plenty of fluids. Call physical therapy at [phone] and make an appointment for no upfront cost evaluation. Cyclobenzaprine/Flexeril 1 tablet every 8 hours as necessary for muscle spasms in your low back. If you not seeing improvement despite these measures in the next 2 to 4 weeks then follow-up with either your primary care doctor or you may follow-up with the orthopedist, Dr. Laurent for reexamination. For the blood in your urine were going to put you on Macrobid and antibiotic for 7 days. 1 tablet twice a day with food. Follow-up with your primary care doctor or the urologist, Dr. Ross in 2 to 4 weeks to recheck your urine and see if it resolved. When you lift do not twist your back. Do not lift more than 40 pounds for 2 weeks to give your back some time to heal. All discharge instructions reviewed with patient and/or family. Voiced un derstanding. Scripts Methylprednisolone (Methylprednisolone Dose Pack) 4 Mg Tablet 4 MG PO UD for 6 Days, #21 TAB 0 Refills FOLLOW DOSE PACK INSTRUCTIONS Prov: RHONDA SEGURA 02/15/22 Naproxen (Naprosyn) 500 Mg Tablet 500 MG PO BID for 14 Days, #30 TAB 0 Refills Prov: RHONDA SEGURA 02/15/22 Cyclobenzaprine HCl (Cyclobenzaprine HCl) 10 Mg Tablet 10 MG PO Q8H PRN for SPASMS, #20 TAB 0 Refills Prov: RHONDA SEGURA 02/15/22 Nitrofurantoin Monohyd/M-Cryst (Macrobid 100 mg Capsule) 100 Mg Capsule 1 TAB PO BID for 7 Days, #14 CAP 0 Refills Prov: RHONDA SEGURA 02/15/22 Copy Copies To 1: ANKIT LAURENT MD; LETICIA ROSS MD, TITUS J Feb 15, 2022 08:25
[2022-02-15 08:30] LABS: BILIRUBIN,URINE NEGATIVE (NEGATIVE); CLARITY,URINE CLEAR; COLOR,URINE YELLOW; GLUCOSE, URINE (UA) NEGATIVE (NEGATIVE); KETONES,URINE NEGATIVE (NEGATIVE); LEUKOCYTE ESTERASE ,URINE NEGATIVE (NEGATIVE); NITRITE,URINE NEGATIVE (NEGATIVE); PROTEIN,URINE TRACE (NEGATIVE)
[2022-02-15] MEDS ORDERED: KETOROLAC 60 MG/2 ML VIAL IM ONE (08:30)
[2022-02-15 08:51] LABS: BACTERIA,URINE FEW /HPF; RBC,URINE 50-100 /HPF; WBC,URINE 0-2 /HPF
--- NOTE | 2022-02-15 09:19 | Diagnostic Imaging Report ---
CLINICAL INDICATION: Patient with urinary incontinence and right paraspinal lumbar spine pain. EXAM: Axial CT scan of the thoracic and lumbar spine performed without IV contrast. Sagittal and coronal reformations were performed. Bone and soft tissue windows were created. Auto Exposure Controls were utilized during the CT exam to meet ALARA standards for radiation dose reduction. COMPARISON: None. FINDINGS: Thoracic spine: There is no acute thoracic spine fracture or dislocation. There are mild to moderately hypertrophic spurs anteriorly involving the thoracic spine, most pronounced in the mid to lower thoracic region. There is no significant bony central canal stenosis. There is a mild to moderate narrowing involving the mid thoracic spine. There is severe right T3-T4 neuroforaminal narrowing due to facet arthropathy. There is moderate to severe right T4-T5 and T5-T6 neuroforaminal narrowing due to facet arthropathy. There is no significant paraspinal soft tissue abnormality. There are small patchy groundglass areas of opacification involving the medial right lung base. Lumbar spine: There is a nondisplaced pars defect involving the right L1 vertebra which appears to have corticated margins and may be late subacute or chronic. There is no bony bridging. The left pars interarticularis region is intact. There is very subtle (if any) retrolisthesis of L1 on L2. Otherwise, there is no acute lumbar spine fracture. There are degenerative spurs involving the lumbar spine, most pronounced involving the lower lumbar region. T12-L1: There is a small right paracentral disk herniation with calcification which causes no significant central canal stenosis. There is no significant bony neuroforaminal narrowing. L1-L2: There is mild bilateral facet arthropathy. There is no significant bony central canal or neuroforaminal narrowing. L2-L3: There is mild diffuse disk bulge. There is no significant central spinal canal or neuroforaminal narrowing. L3-L4: There is a diffuse disk bulge with mild to moderate loss of disk space height. There is mild to moderate right neuroforaminal narrowing. There is at least mild central canal narrowing. There is no significant left neuroforaminal narrowing. L4-L5: There is diffuse disk bulge with moderate loss of disk space height. There are disk spurs extending into the right foraminal region. There is moderate to severe right neuroforaminal narrowing. There is mild left neuroforaminal narrowing. There is moderate bilateral facet arthropathy/hypertrophy. There appears to be at least moderate central canal stenosis. L5-S1: There is a diffuse disk bulge with disk spurs extending into the left foraminal region. There is severe left neuroforaminal narrowing. There is no significant right neuroforaminal narrowing. There is no significant central canal stenosis. IMPRESSION: 1: There is no evidence of acute thoracic spine or lumbar spine fracture. 2: There is a late subacute or chronic left L1 vertebral body spondylolysis. There is subtle (if any) retrolisthesis of L1 on L2. Nonemergent x-ray flexion and extension views of the lumbar spine would help better evaluate. 3: There is a T12-L1 small right paracentral disk bulge or calcification with no significant central canal stenosis. 4: There is multilevel thoracic and lumbar spine degenerative disease, as described above. A nonemergent MRI of the thoracic and lumbar spine would better evaluate for degree of central canal stenosis. 5: There is a small area of patchy groundglass opacification involving the medial right lower lobe. Lung infiltrates/infectious process may be considered. Clinical correlation is suggested. Dictated by: Dictated on workstation # [id number]
[2022-02-15] MEDS ORDERED: methylPREDNISolone 125 MG (Solu-MEDROL) VIAL IM ONE (11:30)
--- NOTE | 2022-02-15 12:45 | Diagnostic Imaging Report ---
CT ABD/PELVIS WO (KIDNEY STONE) TECHNIQUE: Unenhanced CT imaging of the abdomen and pelvis was performed. 2-D reformats are created and submitted for interpretation. Automatic exposure controls were utilized to optimize patient dose. INDICATION: Flank pain. COMPARISON: Thoracic and lumbar spine CT performed same day. FINDINGS: Evaluation of the abdominal viscera is mildly limited without contrast. Lower chest: Patchy ground-glass opacities are present in the right lung base. Peritoneum: No free intraperitoneal air or fluid. Liver and biliary system: Diffuse hypoattenuation of the liver is indicative of hepatic steatosis. There is focal fatty sparing around the gallbladder fossa. No concerning focal hepatic lesion, and the liver does not have nodularity of the surface that would suggest cirrhosis. The gallbladder is normal. No biliary duct dilation. Spleen and Pancreas: Spleen is normal. Unenhanced pancreas is grossly normal. Adrenals: Normal. tract: Punctate nonobstructing 2 mm stones are present in the upper pole of the left kidney. No right renal stones. No renal mass or obstructive uropathy. Urinary bladder is decompressed, limiting assessment. Uterus and ovaries are physiologic in appearance with a dominant left ovarian follicle. GI tract: Stomach is decompressed. No bowel obstruction. No pericolonic inflammatory changes. Normal appendix. Vasculature and Lymph nodes: Normal caliber aorta has scattered atherosclerotic plaquing. No abdominal or pelvic lymphadenopathy. Musculoskeletal: No concerning osseous lesion. Please see report for the CT lumbar spine from earlier same day for details of this visualized anatomy. IMPRESSION: 1. Punctate nonobstructing 2 mm stones are present in the upper pole of the left kidney. No ureteral stones or obstructive uropathy. 2. Patchy ground-glass opacities in the right lung base are likely due to an infectious process. Dictated by: Dictated on workstation # [id number]
[2022-02-15] MEDS ORDERED: CYCL10TA25 PO (13:07)
[2022-02-15] MEDS ORDERED: METH4TAB11 PO (13:07)
[2022-02-15] MEDS ORDERED: NITR-65 PO (13:07)
[2022-02-15] MEDS ORDERED: NAPR-1071 PO (13:07)
[2022-02-15 13:18] VITALS: BP 154/102
== END 2022-02-15 13:23 | disposition home or self-care (01) ==
LOC: EDUNIT# 07:49 → ER 07:50
DX: M54.16 Radiculopathy, lumbar region (principal); M54.31 Sciatica, right side; R31.9 Hematuria, unspecified
CPT/HCPCS: 72128; 72131; 74176; 81000; 87088; 96372

== ENCOUNTER 2022-02-26 12:13 | Observation (INO) | payer SELFPAY ==
[2022-02-26] VITALS (14 sets, daily range): BP systolic 135–172; BP diastolic 88–124
[~2022-02-26] VITALS: Ht 167 cm; Wt 101.1 kg
[~2022-02-26 12:13] MED LIST changes: +METH4TAB11 PO; +NAPR-1071 PO; +NITR-65 PO
[2022-02-26 12:37] LABS: BASOPHILS # (AUTO) 0.1 10^3/uL (0.0-0.1); BASOPHILS % (AUTO) 1 % (0-10); EOSINOPHILS # (AUTO) 0.2 10^3/uL (0.0-0.3); EOSINOPHILS % (AUTO) 3 % (0-10); HEMATOCRIT 40 % (35-52); HEMOGLOBIN 12.7 g/dL (11.5-16.0); LYMPHOCYTES # (AUTO) 2.5 10^3/uL (1.0-4.0); LYMPHOCYTES % (AUTO) 33 % (12-44); MEAN CORPUSCULAR HEMOGLOBIN 27 pg (25-34); MEAN CORPUSCULAR HGB CONC 31 g/dL (32-36); MEAN CORPUSCULAR VOLUME 87 fL (80-99); MEAN PLATELET VOLUME 10.1 fL (9.0-12.2); MONOCYTES # (AUTO) 0.4 10^3/uL (0.0-1.0); MONOCYTES % (AUTO) 5 % (0-12); NEUTROPHILS # (AUTO) 4.5 10^3/uL (1.8-7.8); NEUTROPHILS % (AUTO) 59 % (42-75); PLATELET COUNT 261 10^3/uL (130-400); WHITE BLOOD COUNT 7.6 10^3/uL (4.3-11.0)
[2022-02-26 12:43] LABS: ALBUMIN 3.8 GM/DL (3.2-4.5); CHLORIDE 104 MMOL/L (98-107); FIBRIN DEGRADATION PRODUCTS 0.48 UG/ML (0.00-0.49); INR 0.9 (0.8-1.4); POTASSIUM 3.8 MMOL/L (3.6-5.0); SODIUM 139 MMOL/L (135-145)
[2022-02-26 12:44] LABS: CALCIUM 9.7 MG/DL (8.5-10.1)
[2022-02-26 12:45] LABS: GLUCOSE 130 MG/DL (70-105)
[2022-02-26 12:46] LABS: TOTAL PROTEIN 7.1 GM/DL (6.4-8.2)
[2022-02-26 12:47] LABS: CARBON DIOXIDE 21 MMOL/L (21-32)
[2022-02-26 12:48] LABS: BILIRUBIN,TOTAL 0.5 MG/DL (0.1-1.0)
[2022-02-26 12:49] LABS: ALKALINE PHOSPHATASE 99 U/L (40-136); CREATININE SERUM 0.98 MG/DL (0.60-1.30); GFR ESTIMATED 70
[2022-02-26 12:50] LABS: BUN/CREATININE RATIO 12
[2022-02-26 12:52] LABS: ALANINE AMINOTRANSFERASE 22 U/L (0-55)
--- NOTE | 2022-02-26 12:57 | Diagnostic Imaging Report ---
INDICATION: Stroke-like symptoms. EXAMINATION: Chest from 02/26/2022. COMPARISON: 02/16/2021. FINDINGS: The cardiomediastinal silhouette is unremarkable. The pulmonary vasculature is within normal limits. The lungs and pleural spaces are clear. IMPRESSION: No evidence of an acute cardiopulmonary process. Dictated by: Dictated on workstation # [id number]
--- NOTE | 2022-02-26 13:00 | Diagnostic Imaging Report ---
PROCEDURE: CT head wo r/o stroke. TECHNIQUE: Multiple contiguous axial images were obtained through the brain without the use of intravenous contrast. Auto Exposure Controls were utilized during the CT exam to meet ALARA standards for radiation dose reduction. INDICATION: Altered mental status, neurological deficit. COMPARISON: 02/16/2021. DISCUSSION: No adverse interval change. No acute intracranial hemorrhage, mass, midline shift, or hydrocephalus. The ventricles and sulci are normal in size and configuration for age. The orbits, sinuses, mastoid air cells, and calvarium are unremarkable. IMPRESSION: 1. Stable negative head CT. Dictated by: Dictated on workstation # [id number]
--- NOTE | 2022-02-26 13:08 | Diagnostic Imaging Report ---
PROCEDURE: CT angiography of the head and CT angiography of the neck with and without contrast. TECHNIQUE: Contiguous noncontrast images were obtained from the skull base through the vertex. After intravenous contrast administration, helical CT angiography of the neck was performed. Source data was reformatted into 3D MIP projections. Delayed post contrast acquisition was also obtained. Auto Exposure Controls were utilized during the CT exam to meet ALARA standards for radiation dose reduction. INDICATION: Altered mental status, neurological deficit. COMPARISON: Head CT same day. DISCUSSION: CTA head: Intracranial arterial luminal enhancement and morphology are normal without focal stenosis, major vessel cut off, aneurysm, or vascular malformation. The [place] is complete. Visualized venous structures are unremarkable. CTA neck: The left vertebral artery arises directed from the aortic arch. The aortic arch is otherwise unremarkable. The vertebral arteries are codominant. The carotid arteries bifurcate midneck without focal stenosis, vessel cut off, or vascular malformation within the neck. The visualized soft tissues are unremarkable. IMPRESSION: 1. Unremarkable CTA of the head and neck. Dictated by: Dictated on workstation # [id number]
[2022-02-26 13:19] LABS: BILIRUBIN,URINE NEGATIVE (NEGATIVE); CLARITY,URINE CLEAR; COLOR,URINE YELLOW; GLUCOSE, URINE (UA) NEGATIVE (NEGATIVE); KETONES,URINE NEGATIVE (NEGATIVE); LEUKOCYTE ESTERASE ,URINE NEGATIVE (NEGATIVE); NITRITE,URINE NEGATIVE (NEGATIVE); PROTEIN,URINE NEGATIVE (NEGATIVE)
--- NOTE | 2022-02-26 13:22 | ED Neurological Problem ---
General Chief Complaint: Neuro-Stroke Like Symptoms Stated Complaint: SLURRED SPEECH/CONFUSION Nursing Triage Note: PT AMB TO RM 3 WITH WITH COMPLAINT OF ALT MENTAL STATUS AND CONCERN FOR STROKE. STATES THEY WERE HEADING INTO TOWN AND PT BEGAN TO NOT MAKE SENSE. PT IS ALERT ON ARRIVAL. ANSWERS NAME, BUT GIVES INAPPROPRIATE ANSWERS TO QUESTIONS. DID NOT KNOW HUSBANDS NAME. STATES LKWT WAS 1200 Source: patient Exam Limitations: no limitations History of Present Illness Date Seen by Provider: Feb 26, 2022 Time Seen by Provider: 12:15 Initial Comments This 51-year-old woman is brought to the emergency room by her by private vehicle with sudden onset of difficulty speaking and understanding speech. Last known well time was noon. They were riding in the car when she stopped being able to understand what he was saying and he could not comprehend her speech. She also held her hand up with clenched fingers at that time. There was no seizure-like activity. On arrival she appears to have both expressive and receptive aphasia. Some questions she is unable to answer because she does not appear to understand the question. Some of her statements trail off into word salad. She seems rather confused but is trying to cooperate. Stroke activation was paged and NIH stroke score was 2. She has a history of admission about a year ago for pneumonia and hypoxia. She reportedly had a seizure-like episode at that time. She has never had any other neurologic events known to the . She had been on Keppra for a while after that event but no longer takes any antiseizure medication. No new medications have been started. Fingerstick blood sugar was 120. Allergies and Home Medications Allergies Coded Allergies: morphine (Verified Allergy, Unknown, 04/27/17) Patient Home Medication List Home Medication List Reviewed: Yes Albuterol Sulfate (Ventolin Hfa) 18 Gm Hfa.aer.ad, 0 GM IH RTQ6HR Prescribed by: GERALDINE MÉNDEZ on 02/17/21 1125 Cefdinir (Cefdinir) 300 Mg Capsule, 300 MG PO BID Prescribed by: GERALDINE MÉNDEZ on 02/17/21 1125 Cyclobenzaprine HCl (Cyclobenzaprine HCl) 10 Mg Tablet, 10 MG PO Q8H PRN for SPASMS Prescribed by: RHONDA SEGURA on 02/15/22 1307 Hydrocodone/Acetaminophen (Hydrocodone-Acetamin 5-325 mg) 1 Each Tablet, 1 TAB PO TID PRN for PAIN-MODERATE (5-7), (Reported) Entered as Reported by: ELIS FRANKLIN on 02/16/21 1132 Levetiracetam (Keppra) 500 Mg Tablet, 500 MG PO BID PRN Prescribed by: GERALDINE MÉNDEZ on 02/17/21 1125 Lisinopril (Lisinopril) 10 Mg Tablet, 10 MG PO DAILY, (Reported) Entered as Reported by: ELIS FRANKLIN on 02/16/21 1132 Methylprednisolone (Methylprednisolone Dose Pack) 4 Mg Tablet, 4 MG PO UD Prescribed by: RHONDA SEGURA on 02/15/22 1307 Metoprolol Tartrate (Metoprolol Tartrate) 25 Mg Tablet, 25 MG PO DAILY, (Reported) Entered as Reported by: ELIS FRANKLIN on 02/16/21 1132 Multivitamin (Multivitamin) 1 Each Tablet, 1 EACH PO DAILY, (Reported) Entered as Reported by: ELIS FRANKLIN on 02/16/21 1132 Naproxen (Naprosyn) 500 Mg Tablet, 500 MG PO BID Prescribed by: RHONDA SEGURA on 02/15/22 1307 Nitrofurantoin Monohyd/M-Cryst (Macrobid 100 mg Capsule) 100 Mg Capsule, 1 TAB PO BID Prescribed by: RHONDA SEGURA on 02/15/22 1307 Paroxetine HCl (Paroxetine HCl) 40 Mg Tablet, 40 MG PO DAILY, (Reported) Entered as Reported by: FREIDA HILL on 12/29/15 0907 Prednisone (Prednisone) 10 Mg Tab.ds.pk, 10 MG PO DAILY Prescribed by: GERALDINE MÉNDEZ on 02/17/21 1125 Review of Systems Review of Systems Constitutional: no symptoms reported Eyes: No Symptoms Reported Ears, Nose, Mouth, Throat: no symptoms reported Respiratory: no symptoms reported Cardiovascular: no symptoms reported Gastrointestinal: no symptoms reported Genitourinary: no symptoms reported Musculoskeletal: no symptoms reported Skin: no symptoms reported Psychiatric/Neurological: See HPI Endocrine: No Symptoms Reported Hematologic/Lymphatic: No Symptoms Reported Past Cuvohwm-Achtee-Zlkalj Hx Patient Social History Tobacco Use?: No Use of E-Cig and/or Vaping dev: No Substance use?: No Alcohol Use?: No Pt feels they are or have been: No Immunizations Up To Date Tetanus Booster (TDap): More than 5yrs PED Vaccines UTD: Yes Seasonal Allergies Seasonal Allergies: No Past Medical History Surgeries: Yes (WISDOM TEETH) Respiratory: Yes Pneumonia Cardiac: Yes (tachycardia, LOOP RECORDER PLACED) Atrial Fibrillation, High Cholesterol, Hypertension, Irregular Heartbeat Neurological: Yes Concussion, Headaches /Migraines, Seizure Disorder (Single seizure-like episode during pneumonia with hypoxia), Stroke 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 Disorders: No 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 Disorders: Denies 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 Sexually Transmitted Disease: No Genitourinary: No Gastrointestinal: No Musculoskeletal: Yes (CHRONIC NECK PAIN; CHRONIC RIGHT KNEE PAIN/TORN MENISCUS PER MRI 01/26/21) Scoliosis, Chronic Back Pain Endocrine: No HEENT: No Cancer: No Psychosocial: Yes Anxiety, Depression Integumentary: No Recent Skin Changes Blood Disorders: No Family Medical History Cardiovascular disease FH: breast cancer 19 MOTHER (METS) FH: lung cancer 19 FATHER FHx: mental retardation G8 BROTHER Myocardial infarction 19 FATHER (X2) Heart Disease, Cancer Physical Exam Vital Signs Vital Signs - First Documented 02/26/22 12:15 Temp 35.9 Pulse 86 Resp 17 B/P (MAP) 177/112 (133) Pulse Ox 92 O2 Delivery Room Air Capillary Refill : Less Than 3 Seconds Height, Weight, BMI Height: 5'6.00" Weight: 180lbs. 5.0oz. [id number]; 29.00 BMI Method:Stated General Appearance: WD/WN, no apparent distress, obese HEENT: PERRL/EOMI, normal ENT inspection Neck: normal inspection Respiratory: lungs clear, normal breath sounds, no respiratory distress Cardiovascular: regular rate, rhythm, no edema, no murmur Gastrointestinal: non tender, soft; No distended Extremities: normal inspection, no pedal edema Neurologic/Psychiatric: no motor/sensory deficits, alert, normal mood/affect, other (Expressive and receptive aphasia with resulting confusion/disorientation) Motor/Sensory: no motor deficit, no sensory deficit Skin: normal color, warm/dry Stroke NIH Stroke Scale Assessment Select: Initial Level of Consciousness: 0=Alert (0), Level of Consciousness- Questions: 1=Answers one question (1), Gaze: Normal (0), Visual Oliva: 0=No visual loss (0), Facial Movement (Facial Paresis): 0=Normal symmetrical mnt (0), Motor Function-Arms Right: 0=No drift (0), Motor Function-Arms Left: 0=No drift (0), Motor Function-Legs Right: 0=No drift (0), Motor Function- Legs Left: 0=No drift (0), Limb Ataxia: 0=Absent (0), Sensory: 0=Normal:no loss (0), Best Language: 1=Mild to moderat aphasia (1), Dysarthria: 0=Normal (0), Extinction & Inattention: 0=No abnormality (0), Total: 2 Stroke Thrombolytic Exclusion Age 18 or Over: Yes Progress/Results/Core Measures Results/Orders Lab Results Laboratory Tests Test 02/26/22 12:20 02/26/22 12:22 02/26/22 13:13 Range/Units White Blood Count 7.6 4.3-11.0 10^3/uL Red Blood Count 4.66 3.80-5.11 10^6/uL Hemoglobin 12.7 11.5-16.0 g/dL Hematocrit 40 35-52 % Mean Corpuscular Volume 87 80-99 fL Mean Corpuscular Hemoglobin 27 25-34 pg Mean Corpuscular Hemoglobin Concent 31 L 32-36 g/dL Red Cell Distribution Width 15.9 H 10.0-14.5 % Platelet Count 261 130-400 10^3/uL Mean Platelet Volume 10.1 9.0-12.2 fL Immature Granulocyte % (Auto) 1 % Neutrophils (%) (Auto) 59 42-75 % Lymphocytes (%) (Auto) 33 12-44 % Monocytes (%) (Auto) 5 0-12 % Eosinophils (%) (Auto) 3 0-10 % Basophils (%) (Auto) 1 0-10 % Neutrophils # (Auto) 4.5 1.8-7.8 10^3/uL Lymphocytes # (Auto) 2.5 1.0-4.0 10^3/uL Monocytes # (Auto) 0.4 0.0-1.0 10^3/uL Eosinophils # (Auto) 0.2 0.0-0.3 10^3/uL Basophils # (Auto) 0.1 0.0-0.1 10^3/uL Immature Granulocyte # (Auto) 0.0 0.0-0.1 10^3/uL Prothrombin Time 13.0 12.2-14.7 SEC INR Comment 0.9 0.8-1.4 Activated Partial Thromboplast Time 27 24-35 SEC D-Dimer 0.48 0.00-0.49 UG/ML Sodium Level 139 135-145 MMOL/L Potassium Level 3.8 3.6-5.0 MMOL/L Chloride Level 104 98-107 MMOL/L Carbon Dioxide Level 21 21-32 MMOL/L Anion Gap 14 5-14 MMOL/L Blood Urea Nitrogen 12 7-18 MG/DL Creatinine 0.98 0.60-1.30 MG/DL Estimat Glomerular Filtration Rate 70 BUN/Creatinine Ratio 12 Glucose Level 130 H 70-105 MG/DL Calcium Level 9.7 8.5-10.1 MG/DL Corrected Calcium 9.9 8.5-10.1 MG/DL Total Bilirubin 0.5 0.1-1.0 MG/DL Aspartate Amino Transf (AST/SGOT) 20 5-34 U/L Alanine Aminotransferase (ALT/SGPT) 22 0-55 U/L Alkaline Phosphatase 99 40-136 U/L Troponin I < 0.028 <0.028 NG/ML Total Protein 7.1 6.4-8.2 GM/DL Albumin 3.8 3.2-4.5 GM/DL Thyroid Stimulating Hormone (TSH) 1.60 0.35-4.94 UIU/ML Glucometer 128 H 70-110 MG/DL Urine Color YELLOW Urine Clarity CLEAR Urine pH 7.0 5-9 Urine Specific [place] 1.010 L 1.016-1.022 Urine Protein NEGATIVE NEGATIVE Urine Glucose (UA) NEGATIVE NEGATIVE Urine Ketones NEGATIVE NEGATIVE Urine Nitrite NEGATIVE NEGATIVE Urine Bilirubin NEGATIVE NEGATIVE Urine Urobilinogen 0.2 < = 1.0 MG/DL Urine Leukocyte Esterase NEGATIVE NEGATIVE Urine RBC (Auto) 2+ H NEGATIVE Urine RBC 0-2 /HPF Urine WBC NONE /HPF Urine Squamous Epithelial Cells 2-5 /HPF Urine Crystals NONE /LPF Urine Bacteria NEGATIVE /HPF Urine Casts NONE /LPF Urine Mucus NEGATIVE /LPF Urine Culture Indicated NO My Orders Orders - USMAN MISTRY MD Ct Head Wo-R/O Stroke (02/26/22 12:30) Ct Angio Head/Neck (02/26/22 12:30) Cbc With Automated Diff (02/26/22 12:30) Protime With Inr (02/26/22 12:30) Partial Thromboplastin Time (02/26/22 12:30) Comprehensive Metabolic Panel (02/26/22 12:30) Fibrin Degradation Products (02/26/22 12:30) Troponin I [place] (02/26/22 12:30) Ua Culture If Indicated (02/26/22 12:30) Chest 1 View, Ap/Pa Only (02/26/22 12:30) Ekg Tracing (02/26/22 12:30) Accucheck Stat ONCE (02/26/22 12:30) Ed Iv/Invasive Line Start (02/26/22 12:30) Vital Signs Stroke Patient Q15M (02/26/22 12:30) O2 (02/26/22 12:30) Intake & Output 06,14,22 (02/26/22 12:30) Monitor-Rhythm Ecg Trace Only (02/26/22 12:30) Dysphagia Screening Tool Q10MX1 (02/26/22 12:30) Post Thrombolytic Adminstratio (02/26/22 12:30) Lipid Panel (02/27/22 06:00) Ed Admission (Communication) (02/26/22 13:33) Vital Signs/I&O 02/26/22 12:15 Temp 35.9 Pulse 86 Resp 17 B/P (MAP) 177/112 (133) Pulse Ox 92 O2 Delivery Room Air Blood Pressure Mean: 133 Progress Progress Note : Time: 13:[address] of the head was unremarkable. This was followed by CT angio which was also unremarkable. Patient was reassessed at 1300. Symptoms seem to have resolved. She had articulate speech and seemed to understand all of my questions. She was able to clearly articulate her plans for the day. I discussed the situation with Dr. Romero, stroke neurologist at [facility]. Since the NIH stroke score was low and symptoms have resolved, she advises against thrombolytics. She recommends admission to complete stroke work-up. She advises permissive hypertension. She recommends starting dual antiplatelet therapy with aspirin 81 mg and Plavix 75 mg for 3 weeks, then aspirin [address] Méndez presented to the ER to evaluate the patient and is placing admission orders. Initial ECG Impression Date: Feb 26, 2022 Initial ECG Impression Time: 12:27 Initial ECG Rate: 88 Initial ECG Rhythm: Normal Sinus Initial ECG Intervals: Normal Initial ECG Impression: Normal Comment Normal sinus rhythm with no ST elevation or depression. No abnormal intervals. LVH noted. Diagnostic Imaging Diagonstic Imaging: CT Plain Films/CT/US/NM/MRI: head Comments CT head without contrast viewed by me and report reviewed. See report below: NAME: JC DUGAN REC#: [id number] PT STATUS: ADM Kirsten : 1970 PHYSICIAN: USMAN MISTRY MD ADMIT DATE: 02/26/22/CSD Signed Date of Exam:02/26/22 CT HEAD WO-R/O STROKE PROCEDURE: CT head wo r/o stroke. TECHNIQUE: Multiple contiguous axial images were obtained through the brain without the use of intravenous contrast. Auto Exposure Controls were utilized during the CT exam to meet ALARA standards for radiation dose reduction. INDICATION: Altered mental status, neurological deficit. COMPARISON: 02/16/2021. DISCUSSION: No adverse interval change. No acute intracranial hemorrhage, mass, midline shift, or hydrocephalus. The ventricles and sulci are normal in size and configuration for age. The orbits, sinuses, mastoid air cells, and calvarium are unremarkable. IMPRESSION: 1. Stable negative head CT. Dictated by: Dictated on workstation # [id number] Dict: 02/26/22 1251 Trans: 02/26/22 1535 AS6 [id number] Interpreted by: RENETTA BUCKNER MD Electronically signed by: RENETTA BUCKNER MD 02/26/22 1535 Diagonstic Imaging: CT Plain Films/CT/US/NM/MRI: other (Angiogram head and neck) Comments CT angiogram head and neck viewed by me and report reviewed. See report below NAME: JC DUGAN MED REC#: [id number] PT STATUS: REG ER : 1970 PHYSICIAN: USMAN MISTRY MD ADMIT DATE: 02/26/22/ER Draft Date of Exam:02/26/22 CT ANGIO HEAD/NECK PROCEDURE: CT angiography of the head and CT angiography of the neck with and without contrast. TECHNIQUE: Contiguous noncontrast images were obtained from the skull base through the vertex. After intravenous contrast administration, helical CT angiography of the neck was performed. Source data was reformatted into 3D MIP projections. Delayed post contrast acquisition was also obtained. Auto Exposure Controls were utilized during the CT exam to meet ALARA standards for radiation dose reduction. INDICATION: Altered mental status, neurological deficit. COMPARISON: Head CT same day. DISCUSSION: CTA head: Intracranial arterial luminal enhancement and morphology are normal without focal stenosis, major vessel cut off, aneurysm, or vascular malformation. The [place] is complete. Visualized venous structures are unremarkable. CTA neck: The left vertebral artery arises directed from the aortic arch. The aortic arch is otherwise unremarkable. The vertebral arteries are codominant. The carotid arteries bifurcate midneck without focal stenosis, vessel cut off, or vascular malformation within the neck. The visualized soft tissues are unremarkable. IMPRESSION: 1. Unremarkable CTA of the head and neck. Dictated on workstation # [id number] Dict: 02/26/22 1253 Trans: 02/26/22 1308 AS6 [id number] Interpreted by: RENETTA BUCKNER MD Diagonstic Imaging: Xray Plain Films/CT/US/NM/MRI: chest Comments NAME: JC DUGAN [facility] REC#: [id number] PT STATUS: REG ER : 1970 PHYSICIAN: USMAN MISTRY MD ADMIT DATE: 02/26/22/ER Signed Date of Exam:02/26/22 CHEST 1 VIEW, AP/PA ONLY INDICATION: Stroke-like symptoms. EXAMINATION: Chest from 02/26/2022. COMPARISON: 02/16/2021. FINDINGS: The cardiomediastinal silhouette is unremarkable. The pulmonary vasculature is within normal limits. The lungs and pleural spaces are clear. IMPRESSION: No evidence of an acute cardiopulmonary process. Dictated by: Dictated on workstation # [id number] Dict: 02/26/22 1246 Trans: 02/26/22 1303 AS6 [id number] Interpreted by: LIA SCHULTZ MD Electronically signed by: LIA SCHULTZ MD 02/26/22 1303 Departure Communication (Admissions) Time/Spoke to Admitting Phy: 13:20 Dr. Méndez Time/Spoke to Consulting Phy: 13:35 Dr. Angelo Impression Primary Impression: TIA (transient ischemic attack) Additional Impressions: Expressive aphasia Receptive aphasia Hypertension Qualified Codes: I10 - Essential (primary) hypertension Disposition: ADMITTED INPATIENT Condition: Improved Admissions Decision to Admit Reason: Admit from ER (General) Decision to Admit/Date: Feb 26, 2022 Time/Decision to Admit Time: 13:20 Departure-Patient Inst. Referrals: RENETTA CARPIO MD (PCP/Family) Primary Care Physician Copy Copies To 1: RENETTA CARPIO MD, JOSHUA T MD Feb 26, 2022 13:22
[2022-02-26 13:26] LABS: BACTERIA,URINE NEGATIVE /HPF; RBC,URINE 0-2 /HPF
[2022-02-26] MEDS ORDERED: CLOPIDOGREL 75 MG (PLAVIX) TABLET PO ONE (14:00)
[2022-02-26] MEDS ORDERED: ASPIRIN 81 MG CHEW (CHILDREN'S ASA) PO ONE (14:00)
[2022-02-26] MEDS ORDERED: polyethylene glycoL POWDER 17 GM (MIRALAX) PACK PO PRN (14:30)
[2022-02-26] MEDS ORDERED: HYDROcodone/APAP 5 MG/325 MG (LORTAB) TAB PO PRN (14:30)
[2022-02-26] MEDS ORDERED: BISACODYL 10 MG SUPP (DULCOLAX) PR PRN (14:30)
[2022-02-26] MEDS ORDERED: CALCIUM CARBONATE 500 MG (TUMS) TAB.CHEW PO PRN (14:30)
[2022-02-26] MEDS ORDERED: PATIENT MAY USE OWN MEDS, ALL PO SCH (14:30)
[2022-02-26] MEDS ORDERED: fentaNYL INJ 100 MCG/2 ML AMP IVP PRN (14:30)
[2022-02-26] MEDS ORDERED: diphenhydrAMINE 25 MG TAB (BENADRYL) PO PRN (14:30)
[2022-02-26] MEDS ORDERED: MILK OF MAGNESIA 400 MG/5 ML 30 ML UDC PO PRN (14:30)
[2022-02-26] MEDS ORDERED: LACTULOSE SYRUP 10GM/15ML (ENULOSE) 30ML UDC PO PRN (14:30)
[2022-02-26] MEDS ORDERED: ANTACID SUSP 30 ML UDC (MYLANTA) PO PRN (14:30)
[2022-02-26] MEDS ORDERED: NALOXONE 0.4 MG/ML 1 ML (NARCAN) VIAL IV PRN (14:30)
[2022-02-26] MEDS ORDERED: ONDANSETRON 4 MG (ZOFRAN) ORAL DISSOLVE TAB PO PRN (14:30)
[2022-02-26] MEDS ORDERED: MELATONIN 3 MG TABLET PO PRN (14:30)
[2022-02-26] MEDS ORDERED: diphenhydrAMINE 50 MG/ML INJ (BENADRYL) IVP PRN (14:30)
[2022-02-26] MEDS ORDERED: ONDANSETRON 4 MG/2 ML (SDV) Z0FRAN IV PRN (14:30)
[2022-02-26] MEDS ORDERED: RT-ALBUTEROL SULF 2.5 MG/3 ML PRE-MIX VIAL INH PRN (14:45)
[2022-02-26] MEDS: ALPRAZolam 0.25 MG (XANAX) TAB PO PRN (14:59)
[2022-02-26] MEDS: ENOXAPARIN 40 MG/0.4 ML (LOVENOX) SYR SC SCH (14:59)
--- NOTE | 2022-02-26 15:26 | History & Physical-Hospitalist ---
History of Present Illness HPI/Chief Complaint Chief complaint: Suspected TIA History of present illness: This is a 51-year-old white female known to me from prior new onset seizure and a hospital stay for pneumonia and hypoxia who presented to the ER with dysarthria and expressive aphasia. Stroke protocol initiated and neurologist at notified and after the entire work-up revealed no acute stroke he was recommended to admit for observation to complete the en tire stroke protocol. NIH score was very low so no TPA given. All deficits were resolved shortly after arrival. She did have facial droop that is no longer there. Source: patient, family, RN/MD, old records Exam Limitations: no limitations Date Seen 02/26/22 Time Seen by a Provider: 13:30 Attending Physician Eileen Salinas DO PCP August Lindquist MD Referring Physician Date of Admission Feb 26, 2022 at 13:34 Home Medications & Allergies Home Medications Reviewed patient Home Medication Reconciliation performed by pharmacy medication reconciliations atmospheric technician and/or nursing. Patients Allergies have been reviewed. Allergies Allergies Coded Allergies morphine (Verified Allergy, Unknown, 04/27/17) Past Htrolap-Ztfcrl-Lhqapj Hx Patient Social History Marrital Status: Employed/Student: unemployed Tobacco Use?: No Smoking Status: Never a Smoker Smokeless Tobacco Frequency: Never a User Use of E-Cig and/or Vaping dev: No Use of E-Cig and/or Vaping Raimundo: Never a User Substance use?: No Alcohol Use?: No Pt feels they are or have been: No Immunizations Up To Date Tetanus Booster (TDap): Unknown Hepatitis A: No Hepatitis B: No PED Vaccines UTD: Yes Date of Pneumonia Vaccine: Dec 30, 2015 Seasonal Allergies Seasonal Allergies: No Current Status status: No status: No Advance Directives: No Communicates: Verbally Primary Language: Guyanese Preferred Spoken Language: Guyanese Implanted or Applied Medical D: None Past Medical History Pneumonia Atrial Fibrillation, High Cholesterol, Hypertension, Irregular Heartbeat Concussion, Headaches /Migraines, Seizure Disorder (Single seizure-like episode during pneumonia with hypoxia), Stroke 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 Hypertension- not filling her medications regularly, not been evaluated in the clinic since 2012. Currently hypotensive 2. Depression 3. PT. self reports history of CVA although per MRI and multiple CT's no evidence of any old infarct. 4. Chronic neck and back pain with scoliosis 5. Carotid Duplex 2010 with no plaque noted Past Surgical History 1. Wagoner teeth Family Medical History Cardiovascular disease FH: breast cancer 19 MOTHER (METS) FH: lung cancer 19 FATHER FHx: mental retardation G8 BROTHER Myocardial infarction 19 FATHER (X2) Heart Disease, Cancer Review of Systems Constitutional: see HPI, weakness EENTM: no symptoms reported Respiratory: no symptoms reported Cardiovascular: no symptoms reported Gastrointestinal: no symptoms reported Genitourinary: no symptoms reported Musculoskeletal: no symptoms reported Skin: no symptoms reported Psychiatric/Neurological: No Symptoms Reported All Other Systems Reviewed Negative Unless Noted: Yes Physical Exam Physical Exam Vital Signs Vital Signs - First Documented 02/26/22 02/26/22 12:15 19:30 Temp 35.9 Pulse 86 Resp 17 B/P (MAP) 177/112 (133) Pulse Ox 92 O2 Delivery Room Air FiO2 21 Capillary Refill : Less Than 3 Seconds Height, Weight, BMI Height: 5'6.00" Weight: 180lbs. 5.0oz. 81.618041yj; 36.21 BMI Method:Stated General Appearance: No Apparent Distress, Chronically ill Eyes: Right Eye Normal Inspection, Right Eye PERRL HEENT: PERRL/EOMI, Normal ENT Inspection, Pharynx Normal, Moist Mucous Membranes Neck: Full Range of Motion, Normal Inspection, Non Tender Respiratory: Chest Non Tender, Lungs Clear, Normal Breath Sounds, No Accessory Muscle Use, No Respiratory Distress Cardiovascular: Regular Rate, Rhythm, No Edema, No Gallop, No JVD, No Murmur, Normal Peripheral Pulses Gastrointestinal: Normal Bowel Sounds, No Organomegaly, No Pulsatile Mass, Non Tender, Soft Back: Normal Inspection, No CVA Tenderness, No Vertebral Tenderness Extremity: Normal Capillary Refill, Normal Inspection, Normal Range of Motion, Non Tender, No Calf Tenderness, No Pedal Edema Neurologic/Psychiatric: Alert, Oriented x3, No Motor/Sensory Deficits, Normal Mood/Affect Skin: Normal Color, Warm/Dry Lymphatic: No Adenopathy Results Results/Procedures Labs Laboratory Tests 02/26/22 12:20 Patient resulted labs reviewed. Assessment/Plan Admission Diagnosis Assessment: TIA History of new onset seizure no longer on seizure medication History of pneumonia Depression HTN Plan: Supportive care Neuro checks Stroke protocol evaluation Admission Status: Observation Diagnosis/Problems Diagnosis/Problems (1) TIA (transient ischemic attack) (2) Hypertension Status: Acute Qualifiers: Hypertension type: unspecified Qualified Codes: I10 - Essential (primary) hypertension (3) Receptive aphasia Status: Acute (4) Expressive aphasia Status: Acute EILEEN SALINAS DO Feb 26, 2022 15:26
--- NOTE | 2022-02-26 16:12 | Consultation-Cardiology ---
HPI-Cardiology Cardiology Consultation: Date of Consultation 02/26/22 Date of Admission 02/26/22 Attending Physician Eileen Méndez DO Admitting Physician Renetta Lindquist MD Consulting Physician RENETTA CUELLAR JR, MD HPI: Time Seen by a Provider: 16:08 Chief Complaint: Reason for consultation: Possible transient ischemic attack. I had the pleasure of seeing Awilda on the cardiac stepdown unit at [facility] in [place], [place] this afternoon. She was previously seen by one of my partners, Dr. Jones 1 year ago after she presented to the hospital with a loss of consciousness. It was never determined whether or not the patient may have had a seizure or syncope. She underwent a noninvasive cardiac evaluation at that time and ultimately had a loop recorder implantation. She was in her usual state of health until this morning when she developed expressive aphasia and memory loss. Her became concerned and brought her to the emergency room for further evaluation. Soon after she arrived in the emergency room, her symptoms completely resolved. She underwent a head CT that did not show any acute abnormalities. She was then admitted to the hospital for further evaluation. She was recently seen in the emergency room for back pain and was diagnosed with acute exacerbation of degenerative joint disease and started on a steroid taper. She tells me she was also diagnosed with kidney stones at that time. Shortly after arriving on the floor, she was complaining of back pain and was given some pain medication. A short while later, she then had recurrent problems with memory recall but no further episodes of aphasia. She denies chest discomfort, dyspnea, paroxysmal nocturnal dyspnea, insomnia, palpitations, lightheadedness, or syncope. She does get some occasional, intermittent ankle edema. This is mild and short-lived. She also reports that for the past few months she has been having some intermittent dysphagia. Sometimes when she eats solid food she feels like food will get stuck. This does not occur with liquids. She did not seek medical attention for this condition. She does not have any prior history of esophageal strictures. Certain portions of this document may have been dictated utilizing voice recognition technology. Inherent to this technology, typographical and grammatical errors may exist. As much as I am diligent to identify and correct these mistakes, some errors may remain in the document. Review of Systems-Cardiology Review of Systems Other comments Review of 10 organ systems is as per the history of present illness, otherwise negative. HRI-Lwkkkp-Dmljkk Hx Patient Social History Smoking Status: Never a Smoker 2nd Hand Smoke Exposure: No Have you traveled recently?: No Alcohol Use?: No Pt feels they are or have been: No Immunizations Up To Date Tetanus Booster (TDap): More than 5yrs Date of Pneumonia Vaccine: Dec 30, 2015 Past Medical History PMH As described under Assessment. Family Medical History Family Medical History: She reports her mother and father both had CAD. She reports her mother had an NC at around age 40. Family History: Cardiovascular disease FH: breast cancer 19 MOTHER (METS) FH: lung cancer 19 FATHER FHx: mental retardation G8 BROTHER Myocardial infarction 19 FATHER (X2) Allergies and Home Medications Allergies Coded Allergies: morphine (Verified Allergy, Unknown, 04/27/17) Patient Home Medication List Home Medication List Reviewed: Yes Albuterol Sulfate (Ventolin Hfa) 18 Gm Hfa.aer.ad, 0 GM IH RTQ6HR Prescribed by: EILEEN MÉNDEZ on 02/17/21 1125 Cefdinir (Cefdinir) 300 Mg Capsule, 300 MG PO BID Prescribed by: EILEEN MÉNDEZ on 02/17/21 1125 Cyclobenzaprine HCl (Cyclobenzaprine HCl) 10 Mg Tablet, 10 MG PO Q8H PRN for SPASMS Prescribed by: RHONDA SEGURA on 02/15/22 1307 Hydrocodone/Acetaminophen (Hydrocodone-Acetamin 5-325 mg) 1 Each Tablet, 1 TAB PO TID PRN for PAIN-MODERATE (5-7), (Reported) Entered as Reported by: ELIS FRANKLIN on 02/16/21 1132 Levetiracetam (Keppra) 500 Mg Tablet, 500 MG PO BID PRN Prescribed by: EILEEN MÉNDEZ on 02/17/21 1125 Lisinopril (Lisinopril) 10 Mg Tablet, 10 MG PO DAILY, (Reported) Entered as Reported by: ELIS FRANKLIN on 02/16/21 1132 Methylprednisolone (Methylprednisolone Dose Pack) 4 Mg Tablet, 4 MG PO UD Prescribed by: RHONDA SEGURA on 02/15/22 1307 Metoprolol Tartrate (Metoprolol Tartrate) 25 Mg Tablet, 25 MG PO DAILY, (Reported) Entered as Reported by: ELIS FRANKLIN on 02/16/21 1132 Multivitamin (Multivitamin) 1 Each Tablet, 1 EACH PO DAILY, (Reported) Entered as Reported by: ELIS FRANKLIN on 02/16/21 1132 Naproxen (Naprosyn) 500 Mg Tablet, 500 MG PO BID Prescribed by: RHONDA SEGURA on 02/15/22 1307 Nitrofurantoin Monohyd/M-Cryst (Macrobid 100 mg Capsule) 100 Mg Capsule, 1 TAB PO BID Prescribed by: RHONDA SEGURA on 02/15/22 1307 Paroxetine HCl (Paroxetine HCl) 40 Mg Tablet, 40 MG PO DAILY, (Reported) Entered as Reported by: FREIDA HILL on 12/29/15 0907 Prednisone (Prednisone) 10 Mg Tab.ds.pk, 10 MG PO DAILY Prescribed by: EILEEN MÉNDEZ on 02/17/21 1125 Exam Vital Signs Vital Signs Date Time Temp Pulse Resp B/P (MAP) Pulse Ox O2 Delivery O2 Flow Rate FiO2 02/26/22 15:45 78 14 167/106 (129) 96 Room Air 02/26/22 15:00 36.8 Physical Exam General: Alert. No acute distress. Well nourished and appears stated age. She is obese. Eye: Extraocular movements are intact. Conjunctivae are clear. There are no xanthelasma. HENT: Normocephalic. Atraumatic. Carotid pulsations 2/2 without bruits. Neck: Jugular venous pressure does not appear elevated. No thyromegaly appreciated. Respiratory: Lungs are clear to auscultation. Respirations are non-labored. Breath sounds are equal. Symmetrical chest wall expansion. Cardiovascular: Normal rate. Regular rhythm. 1/6 systolic ejection murmur. No gallop. Point of maximal impulse is not appear displaced. Good pulses equal in all extremities. 1+ bilateral pretibial edema. Gastrointestinal: Soft. Normal bowel sounds. Skin: Skin turgor is normal. There is no pallor. Musculoskeletal: No kyphosis or scoliosis appreciated. Neurologic: Alert and oriented to person, place, time. Cranial nerves 3-12 appear grossly intact. The patient has good motor tone strength in the upper and lower extremities bilaterally. Psychiatric: Cooperative. Appropriate mood & affect. Labs Laboratory Tests Test 02/26/22 12:20 02/26/22 12:22 02/26/22 13:13 Range/Units White Blood Count 7.6 4.3-11.0 10^3/uL Red Blood Count 4.66 3.80-5.11 10^6/uL Hemoglobin 12.7 11.5-16.0 g/dL Hematocrit 40 35-52 % Mean Corpuscular Volume 87 80-99 fL Mean Corpuscular Hemoglobin 27 25-34 pg Mean Corpuscular Hemoglobin Concent 31 L 32-36 g/dL Red Cell Distribution Width 15.9 H 10.0-14.5 % Platelet Count 261 130-400 10^3/uL Mean Platelet Volume 10.1 9.0-12.2 fL Immature Granulocyte % (Auto) 1 % Neutrophils (%) (Auto) 59 42-75 % Lymphocytes (%) (Auto) 33 12-44 % Monocytes (%) (Auto) 5 0-12 % Eosinophils (%) (Auto) 3 0-10 % Basophils (%) (Auto) 1 0-10 % Neutrophils # (Auto) 4.5 1.8-7.8 10^3/uL Lymphocytes # (Auto) 2.5 1.0-4.0 10^3/uL Monocytes # (Auto) 0.4 0.0-1.0 10^3/uL Eosinophils # (Auto) 0.2 0.0-0.3 10^3/uL Basophils # (Auto) 0.1 0.0-0.1 10^3/uL Immature Granulocyte # (Auto) 0.0 0.0-0.1 10^3/uL Prothrombin Time 13.0 12.2-14.7 SEC INR Comment 0.9 0.8-1.4 Activated Partial Thromboplast Time 27 24-35 SEC D-Dimer 0.48 0.00-0.49 UG/ML Sodium Level 139 135-145 MMOL/L Potassium Level 3.8 3.6-5.0 MMOL/L Chloride Level 104 98-107 MMOL/L Carbon Dioxide Level 21 21-32 MMOL/L Anion Gap 14 5-14 MMOL/L Blood Urea Nitrogen 12 7-18 MG/DL Creatinine 0.98 0.60-1.30 MG/DL Estimat Glomerular Filtration Rate 70 BUN/Creatinine Ratio 12 Glucose Level 130 H 70-105 MG/DL Calcium Level 9.7 8.5-10.1 MG/DL Corrected Calcium 9.9 8.5-10.1 MG/DL Total Bilirubin 0.5 0.1-1.0 MG/DL Aspartate Amino Transf (AST/SGOT) 20 5-34 U/L Alanine Aminotransferase (ALT/SGPT) 22 0-55 U/L Alkaline Phosphatase 99 40-136 U/L Troponin I < 0.028 <0.028 NG/ML Total Protein 7.1 6.4-8.2 GM/DL Albumin 3.8 3.2-4.5 GM/DL Glucometer 128 H 70-110 MG/DL Urine Color YELLOW Urine Clarity CLEAR Urine pH 7.0 5-9 Urine Specific [place] 1.010 L 1.016-1.022 Urine Protein NEGATIVE NEGATIVE Urine Glucose (UA) NEGATIVE NEGATIVE Urine Ketones NEGATIVE NEGATIVE Urine Nitrite NEGATIVE NEGATIVE Urine Bilirubin NEGATIVE NEGATIVE Urine Urobilinogen 0.2 < = 1.0 MG/DL Urine Leukocyte Esterase NEGATIVE NEGATIVE Urine RBC (Auto) 2+ H NEGATIVE Urine RBC 0-2 /HPF Urine WBC NONE /HPF Urine Squamous Epithelial Cells 2-5 /HPF Urine Crystals NONE /LPF Urine Bacteria NEGATIVE /HPF Urine Casts NONE /LPF Urine Mucus NEGATIVE /LPF Urine Culture Indicated NO ECG Impression ECG Comment Electrocardiogram obtained in the emergency room shows sinus rhythm with low voltage in the precordial leads, possible left ventricular hypertrophy and poor R wave progression. Diagnosis/Problems Diagnosis/Problems (1) Transient ischemic attack Assessment & Plan: She has expressive aphasia earlier today that resolved spontaneously. Her head CT did not show any acute abnormalities. This could have been due to a transient ischemic attack. The emergency room physician consulted with neurology at [facility] who recommended starting her on aspirin, clopidogrel and high-dose statin medication. Later in the afternoon she did have some recurrent memory problems but this occurred after she received narcotic pain medication. She already has an implantable loop recorder and her most recent download was on January 26 and there were no abnormalities. I do not see any indication to start oral anticoagulation at this time. I have ordered an MRI for tomorrow. Her loop recorder should be MRI safe. I have also ordered an echocardiogram. 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 Furthermore, since she is having dysphagia, she may need an upper endoscopy before considering a transesophageal echocardiogram. (2) Primary hypertension Assessment & Plan: I have reordered her outpatient antihypertensive medications. I should note, it appears as though she may have been taking metoprolol tartrate once a day. I have change this over to twice daily dosing which is the recommended schedule. (3) Syncope Status: Acute Assessment & Plan: She had an episode of syncope versus a seizure just about 1 year ago. She has an implantable loop recorder which is monitored by our office. (4) Obesity Assessment & Plan: She needs to work on weight loss. Problem Qualifiers (1) Obesity: Obesity classification: adult class 2 (BMI 35 - 39.9) RENETTA CUELLAR JR, MD Feb 26, 2022 16:12
[2022-02-26] MEDS ORDERED: lisINopril 10 MG (PRINIVIL) TABLET PO ONE (16:30)
[2022-02-26] MEDS ORDERED: meTOprolol TARTRATE 25 MG (LOPRESSOR) TABLET PO ONE (16:30)
[2022-02-26] MEDS: meTOprolol TARTRATE 25 MG (LOPRESSOR) TABLET PO SCH (20:11)
[2022-02-26] MEDS: SENNOSIDES 8.6 MG (SENOKOT) TAB PO SCH (20:11)
[2022-02-26] MEDS: DOCUSATE SODIUM 100 MG (COLACE) CAP PO SCH (20:11)
[2022-02-26] MEDS: ACETAMINOPHEN 325 MG TABLET PO PRN (21:08)
[2022-02-27] VITALS (13 sets, daily range): BP systolic 119–145; BP diastolic 64–104
[2022-02-27 05:55] LABS: BASOPHILS # (AUTO) 0.1 10^3/uL (0.0-0.1); BASOPHILS % (AUTO) 1 % (0-10); EOSINOPHILS # (AUTO) 0.3 10^3/uL (0.0-0.3); EOSINOPHILS % (AUTO) 3 % (0-10); HEMATOCRIT 35 % (35-52); HEMOGLOBIN 11.2 g/dL (11.5-16.0); LYMPHOCYTES # (AUTO) 3.2 10^3/uL (1.0-4.0); LYMPHOCYTES % (AUTO) 41 % (12-44); MEAN CORPUSCULAR HEMOGLOBIN 28 pg (25-34); MEAN CORPUSCULAR HGB CONC 32 g/dL (32-36); MEAN CORPUSCULAR VOLUME 86 fL (80-99); MEAN PLATELET VOLUME 10.5 fL (9.0-12.2); MONOCYTES # (AUTO) 0.5 10^3/uL (0.0-1.0); MONOCYTES % (AUTO) 7 % (0-12); NEUTROPHILS # (AUTO) 3.7 10^3/uL (1.8-7.8); NEUTROPHILS % (AUTO) 48 % (42-75); PLATELET COUNT 203 10^3/uL (130-400); WHITE BLOOD COUNT 7.8 10^3/uL (4.3-11.0)
[2022-02-27 06:09] LABS: ALBUMIN 3.3 GM/DL (3.2-4.5); POTASSIUM 3.4 MMOL/L (3.6-5.0)
[2022-02-27 06:10] LABS: CALCIUM 9.2 MG/DL (8.5-10.1)
[2022-02-27 06:11] LABS: TOTAL PROTEIN 6.1 GM/DL (6.4-8.2)
[2022-02-27 06:13] LABS: BILIRUBIN,TOTAL 0.5 MG/DL (0.1-1.0)
[2022-02-27 06:15] LABS: CREATININE SERUM 0.83 MG/DL (0.60-1.30)
--- NOTE | 2022-02-27 08:56 | Progress Note - Cardiology ---
Cardiology SOAP Progress Note Objective: I&O/Vital Signs 02/26/22 02/27/22 02/27/22 02/27/22 23:33 00:07 01:00 03:17 Pulse 68 70 Resp 18 B/P (MAP) 133/70 (91) Pulse Ox 98 98 98 O2 Delivery Room Air Room Air Room Air 02/27/22 02/27/22 02/27/22 02/27/22 04:00 07:00 07:43 08:00 Temp 36.3 Pulse 62 65 69 81 Resp 23 16 22 B/P (MAP) 124/75 (91) 140/93 (109) 131/104 (113) Pulse Ox 95 96 96 O2 Delivery Room Air Room Air Room Air 02/27/22 00:00 Intake Total 825 ml Balance 825 ml Weight (Pounds): 180 Weight (Ounces): 5.0 Weight (Calculated Kilograms): 81.000562 Results/Procedures: Labs Laboratory Tests 02/26/22 12:20: White Blood Count 7.6, Red Blood Count 4.66, Hemoglobin 12.7, Hematocrit 40, Mean Corpuscular Volume 87, Mean Corpuscular Hemoglobin 27, Mean Corpuscular Hemoglobin Concent 31L, Red Cell Distribution Width 15.9H, Platelet Count 261, Mean Platelet Volume 10.1, Immature Granulocyte % (Auto) 1, Neutrophils (%) (Auto) 59, Lymphocytes (%) (Auto) 33, Monocytes (%) (Auto) 5, Eosinophils (%) (Auto) 3, Basophils (%) (Auto) 1, Neutrophils # (Auto) 4.5, Lymphocytes # (Auto) 2.5, Monocytes # (Auto) 0.4, Eosinophils # (Auto) 0.2, Basophils # (Auto) 0.1, Immature Granulocyte # (Auto) 0.0, Prothrombin Time 13.0, INR Comment 0.9, Activated Partial Thromboplast Time 27, D-Dimer 0.48, Sodium Level 139, Potassium Level 3.8, Chloride Level 104, Carbon Dioxide Level 21, Anion Gap 14, Blood Urea Nitrogen 12, Creatinine 0.98, Estimat Glomerular Filtration Rate 70, BUN/Creatinine Ratio 12, Glucose Level 130H, Calcium Level 9.7, Corrected Calcium 9.9, Total Bilirubin 0.5, Aspartate Amino Transf (AST/SGOT) 20, Alanine Aminotransferase (ALT/SGPT) 22, Alkaline Phosphatase 99, Troponin I < 0.028, Total Protein 7.1, Albumin 3.8, Thyroid Stimulating Hormone (TSH) 1.60 02/26/22 12:22: Glucometer 128H 02/26/22 13:13: Urine Color YELLOW, Urine Clarity CLEAR, Urine pH 7.0, Urine Specific [place] 1.010L, Urine Protein NEGATIVE, Urine Glucose (UA) NEGATIVE, Urine Ketones NEGATIVE, Urine Nitrite NEGATIVE, Urine Bilirubin NEGATIVE, Urine Urobilinogen 0.2, Urine Leukocyte Esterase NEGATIVE, Urine RBC (Auto) 2+H, Urine RBC 0-2, Urine WBC NONE, Urine Squamous Epithelial Cells 2-5, Urine Crystals NONE, Urine Bacteria NEGATIVE, Urine Casts NONE, Urine Mucus NEGATIVE, Urine Culture Indicated NO 02/27/22 05:05: White Blood Count 7.8, Red Blood Count 4.07, Hemoglobin 11.2L, Hematocrit 35, Mean Corpuscular Volume 86, Mean Corpuscular Hemoglobin 28, Mean Corpuscular Hemoglobin Concent 32, Red Cell Distribution Width 15.9H, Platelet Count 203, Mean Platelet Volume 10.5, Immature Granulocyte % (Auto) 0, Neutrophils (%) (Auto) 48, Lymphocytes (%) (Auto) 41, Monocytes (%) (Auto) 7, Eosinophils (%) (Auto) 3, Basophils (%) (Auto) 1, Neutrophils # (Auto) 3.7, Lymphocytes # (Auto) 3.2, Monocytes # (Auto) 0.5, Eosinophils # (Auto) 0.3, Basophils # (Auto) 0.1, Immature Granulocyte # (Auto) 0.0, Sodium Level 137, Potassium Level 3.4L, Chloride Level 105, Carbon Dioxide Level 20L, Anion Gap 12, Blood Urea Nitrogen 11, Creatinine 0.83, Estimat Glomerular Filtration Rate 86, BUN/Creatinine Ratio 13, Glucose Level 91, Calcium Level 9.2, Corrected Calcium 9.8, Total Bilirubin 0.5, Aspartate Amino Transf (AST/SGOT) 18, Alanine Aminotransferase (ALT/SGPT) 20, Alkaline Phosphatase 79, Total Protein 6.1L, Albumin 3.3, Triglycerides Level 203H, Cholesterol Level 205H, LDL Cholesterol Direct 139H, VLDL Cholesterol 41H, HDL Cholesterol 34L Laboratory Tests 02/26/22 12:20 02/27/22 05:05 Procedures NAME: JC DUGAN MED REC#: [id number] PT STATUS: REG ER : 1970 PHYSICIAN: USMAN MISTRY MD ADMIT DATE: 02/26/22/ER Signed Date of Exam:02/26/22 CHEST 1 VIEW, AP/PA ONLY INDICATION: Stroke-like symptoms. EXAMINATION: Chest from 02/26/2022. COMPARISON: 02/16/2021. FINDINGS: The cardiomediastinal silhouette is unremarkable. The pulmonary vasculature is within normal limits. The lungs and pleural spaces are clear. IMPRESSION: No evidence of an acute cardiopulmonary process. Dictated by: Dictated on workstation # [id number] Dict: 02/26/22 1246 Trans: 02/26/22 1303 AS6 [id number] Interpreted by: LIA SCHULTZ MD Electronically signed by: LIA SCHULTZ MD 02/26/22 1303 NAME: JC DUGAN [facility] REC#: [id number] PT STATUS: ADM Kirsten : 1970 PHYSICIAN: USMAN MISTRY MD ADMIT DATE: 02/26/22/CSD Signed Date of Exam:02/26/22 CT HEAD WO-R/O STROKE PROCEDURE: CT head wo r/o stroke. TECHNIQUE: Multiple contiguous axial images were obtained through the brain without the use of intravenous contrast. Auto Exposure Controls were utilized during the CT exam to meet ALARA standards for radiation dose reduction. INDICATION: Altered mental status, neurological deficit. COMPARISON: 02/16/2021. DISCUSSION: No adverse interval change. No acute intracranial hemorrhage, mass, midline shift, or hydrocephalus. The ventricles and sulci are normal in size and configuration for age. The orbits, sinuses, mastoid air cells, and calvarium are unremarkable. IMPRESSION: 1. Stable negative head CT. Dictated by: Dictated on workstation # [id number] Dict: 02/26/22 1251 Trans: 02/26/22 1535 AS6 [id number] Interpreted by: RENETTA BUCKNER MD Electronically signed by: RENETTA BUCKNER MD 02/26/22 1535 NAME: JC DUGAN [facility] REC#: [id number] PT STATUS: ADM Kirsten : 1970 PHYSICIAN: USMAN MISTRY MD ADMIT DATE: 02/26/22/[facility] Signed Date of Exam:02/26/22 CT ANGIO HEAD/NECK PROCEDURE: CT angiography of the head and CT angiography of the neck with and without contrast. TECHNIQUE: Contiguous noncontrast images were obtained from the skull base through the vertex. After intravenous contrast administration, helical CT angiography of the neck was performed. Source data was reformatted into 3D MIP projections. Delayed post contrast acquisition was also obtained. Auto Exposure Controls were utilized during the CT exam to meet ALARA standards for radiation dose reduction. INDICATION: Altered mental status, neurological deficit. COMPARISON: Head CT same day. DISCUSSION: CTA head: Intracranial arterial luminal enhancement and morphology are normal without focal stenosis, major vessel cut off, aneurysm, or vascular malformation. The [place] is complete. Visualized venous structures are unremarkable. CTA neck: The left vertebral artery arises directed from the aortic arch. The aortic arch is otherwise unremarkable. The vertebral arteries are codominant. The carotid arteries bifurcate midneck without focal stenosis, vessel cut off, or vascular malformation within the neck. The visualized soft tissues are unremarkable. IMPRESSION: 1. Unremarkable CTA of the head and neck. Dictated by: Dictated on workstation # [id number] Dict: 02/26/22 1253 Trans: 02/26/22 1535 AS6 [id number] Interpreted by: RENETTA BUCKNER MD Electronically signed by: RENETTA BUCKNER MD 02/26/22 1535 A/P: Assessment: TIA vs CVA Chest discomfort - MPI of 05-10-21 showed no evidence of ischemia or infarction. LVEF 61% - Echocardiogram on 05-10-21 showed LVEF 60-65%. Grade 1 diastolic dysfunction. PASP 25-30 mmHg Palpitations: - Holter monitor of 04-04-[address] Michelle showed likely atrial tachycardia for 8-10 beats - ILR placement in January 2021 after an episode of seizure/syncope - no significant arrhythmia seen on ILR so far - last ILR transmission of 4-1-22 reviewed (no evidence of arrhythmia) Fatigue of undetermined etiology - managed by PCP Chronic knee pain - managed by her pcp Suspected sleep apnea (reports daytime fatigue and RLS) - refer to Dr. Barbour - unable to follow through d/t ARMEN Dodson Feb 27, 2022 08:56
[2022-02-27] MEDS ORDERED: CLOPIDOGREL 75 MG (PLAVIX) TABLET PO SCH (09:00)
[2022-02-27] MEDS ORDERED: lisINopril 10 MG (PRINIVIL) TABLET PO SCH (09:00)
[2022-02-27] MEDS ORDERED: ASPIRIN E.C. 81 MG (ECOTRIN) TAB PO SCH (09:00)
--- NOTE | 2022-02-27 09:14 | Progress Note - Cardiology ---
Cardiology SOAP Progress Note Subjective: No cp or palp or syncope or shortness of breath No n/v/d No focal weakness or speech impairment today No swelling Objective: I&O/Vital Signs 02/26/22 02/27/22 02/27/22 02/27/22 23:33 00:07 01:00 03:17 Pulse 68 70 Resp 18 B/P (MAP) 133/70 (91) Pulse Ox 98 98 98 O2 Delivery Room Air Room Air Room Air 02/27/22 02/27/22 02/27/22 02/27/22 04:00 07:00 07:43 08:00 Temp 36.3 Pulse 62 65 69 81 Resp 23 16 22 B/P (MAP) 124/75 (91) 140/93 (109) 131/104 (113) Pulse Ox 95 96 96 O2 Delivery Room Air Room Air Room Air 02/27/22 00:00 Intake Total 825 ml Balance 825 ml Weight (Pounds): 180 Weight (Ounces): 5.0 Weight (Calculated Kilograms): 81.803070 Constitutional: AAO x 3, well-developed, well-nourished Respiratory: No accessory muscle use; other (good, bilateral air entry) Cardiovascular: regular rate-rhythm, S1 and S2, systolic murmur (soft HARINDER at card base) Gastrointestional: No tender; soft; No guarding, No rebound; audible bowel sounds Extremities: No clubbing, No cyanosis, No significant edema Neurologic/Psychiatric: oriented x 3, other (moves all limbs eqaullay) Skin: No rash, No ulcerations Results/Procedures: Labs Laboratory Tests 02/26/22 12:20: White Blood Count 7.6, Red Blood Count 4.66, Hemoglobin 12.7, Hematocrit 40, Mean Corpuscular Volume 87, Mean Corpuscular Hemoglobin 27, Mean Corpuscular Hemoglobin Concent 31L, Red Cell Distribution Width 15.9H, Platelet Count 261, Mean Platelet Volume 10.1, Immature Granulocyte % (Auto) 1, Neutrophils (%) (Auto) 59, Lymphocytes (%) (Auto) 33, Monocytes (%) (Auto) 5, Eosinophils (%) (Auto) 3, Basophils (%) (Auto) 1, Neutrophils # (Auto) 4.5, Lymphocytes # (Auto) 2.5, Monocytes # (Auto) 0.4, Eosinophils # (Auto) 0.2, Basophils # (Auto) 0.1, Immature Granulocyte # (Auto) 0.0, Prothrombin Time 13.0, INR Comment 0.9, Activated Partial Thromboplast Time 27, D-Dimer 0.48, Sodium Level 139, Po tassium Level 3.8, Chloride Level 104, Carbon Dioxide Level 21, Anion Gap 14, Blood Urea Nitrogen 12, Creatinine 0.98, Estimat Glomerular Filtration Rate 70, BUN/Creatinine Ratio 12, Glucose Level 130H, Calcium Level 9.7, Corrected Calcium 9.9, Total Bilirubin 0.5, Aspartate Amino Transf (AST/SGOT) 20, Alanine Aminotransferase (ALT/SGPT) 22, Alkaline Phosphatase 99, Troponin I < 0.028, Total Protein 7.1, Albumin 3.8, Thyroid Stimulating Hormone (TSH) 1.60 02/26/22 12:22: Glucometer 128H 02/26/22 13:13: Urine Color YELLOW, Urine Clarity CLEAR, Urine pH 7.0, Urine Specific [place] 1.010L, Urine Protein NEGATIVE, Urine Glucose (UA) NEGATIVE, Urine Ketones NEGATIVE, Urine Nitrite NEGATIVE, Urine Bilirubin NEGATIVE, Urine Urobilinogen 0.2, Urine Leukocyte Esterase NEGATIVE, Urine RBC (Auto) 2+H, Urine RBC 0-2, Ur ine WBC NONE, Urine Squamous Epithelial Cells 2-5, Urine Crystals NONE, Urine Bacteria NEGATIVE, Urine Casts NONE, Urine Mucus NEGATIVE, Urine Culture Indicated NO 02/27/22 05:05: White Blood Count 7.8, Red Blood Count 4.07, Hemoglobin 11.2L, Hematocrit 35, M jayashree Corpuscular Volume 86, Mean Corpuscular Hemoglobin 28, Mean Corpuscular Hemoglobin Concent 32, Red Cell Distribution Width 15.9H, Platelet Count 203, Mean Platelet Volume 10.5, Immature Granulocyte % (Auto) 0, Neutrophils (%) (Auto) 48, Lymphocytes (%) (Auto) 41, Monocytes (%) (Auto) 7, Eosinophils (%) (Auto) 3, Basophils (%) (Auto) 1, Neutrophils # (Auto) 3.7, Lymphocytes # (Auto) 3.2, Monocytes # (Auto) 0.5, Eosinophils # (Auto) 0.3, Basophils # (Auto) 0.1, Immature Granulocyte # (Auto) 0.0, Sodium Level 137, Potassium Level 3.4L, Chloride Level 105, Carbon Dioxide Level 20L, Anion Gap 12, Blood Urea Nitrogen 11, Creatinine 0.83, Estimat Glomerular Filtration Rate 86, BUN/Creatinine Ratio 13, Glucose Level 91, Calcium Level 9.2, Corrected Calcium 9.8, Total Bilirubin 0.5, Aspartate Amino Transf (AST/SGOT) 18, Alanine Aminotransferase (ALT/SGPT) 20, Alkaline Phosphatase 79, Total Protein 6.1L, Albumin 3.3, Triglycerides Level 203H, Cholesterol Level 205H, LDL Cholesterol Direct 139H, VLDL Cholesterol 41H, HDL Cholesterol 34L Laboratory Tests 02/26/22 12:20 02/27/22 05:05 A/P: Assessment: Transient sensory and motor aphasia, TIA suspected, managed by Dr Salinas H/o chest discomfort - MPI of 05-10-21 showed no evidence of ischemia or infarction. LVEF 61% - Echocardiogram on 05-10-21 showed LVEF 60-65%. Grade 1 diastolic dysfunction. PASP 25-30 mmHg Palpitations: - Holter monitor of 04-04-[address] Michelle showed likely atrial tachycardia for 8-10 beats - ILR placement in January 2021 after an episode of seizure/syncope - no significant arrhythmia seen on ILR so far - last ILR transmission of 02-24-22 reviewed (no evidence of arrhythmia) Fatigue of undetermined etiology - managed by PCP Chronic knee pain - managed by her pcp Suspected sleep apnea (reports daytime fatigue and RLS) - refer to Dr. Barbour - unable to follow through d/t cost Plan: I interviewed and examined the patient and reviewed her records Cardiac status appears stable at this time Tele and ILR have not demonstrated any significant arrhythmia Replenish K Monitor labs YAZ WEEKS MD FACP FAC CCDS Feb 27, 2022 09:14
[2022-02-27] MEDS: SENNOSIDES 8.6 MG (SENOKOT) TAB PO SCH (09:34)
[2022-02-27] MEDS: ACETAMINOPHEN 325 MG TABLET PO PRN (09:34)
[2022-02-27] MEDS: DOCUSATE SODIUM 100 MG (COLACE) CAP PO SCH (09:34)
[2022-02-27] MEDS: meTOprolol TARTRATE 25 MG (LOPRESSOR) TABLET PO SCH (09:34)
--- NOTE | 2022-02-27 09:47 | Physical Therapy Evaluation ---
PT Evaluation-General Medical Diagnosis Admission Date Feb 26, 2022 at 13:34 Medical Diagnosis: TIA Onset Date: Feb 26, 2022 Therapy Diagnosis Therapy Diagnosis: weakness Height/Weight Height (Feet): 5 Height (Inches): 6.00 Weight (Pounds): 180 Weight (Ounces): 5.0 Precautions Precautions/Isolations: Standard Precautions Referral Physician: Rita Reason for Referral: Evaluation/Treatment Medical History Pertinent Medical History: Atrial Fib, HTN Current History ER secondary to AMS Reviewed History: Yes Social History Home: Single Level Current Living Status: Spouse Entry Into Home: Stairs With Railing PT Steps Into Home: 2 Prior Prior Level of Function SCALE: Activities may be completed with or without assistive devices. 3-Jgqihtryla-iibgjzb completes the activity by him/herself with no assistance from a helper. 5-Set-up or Clean-up Assistance-helper sets up or cleans up; patient completes activity. [place] assists only prior to or following the activity. 4-Supervision or Touching Assistance-helper provides verbal cues and/or touching/steadying and/or contact guard assistance as patient completes activity. Assistance may be provided throughout the activity or intermittently. 3-Partial/Moderate Assistance-helper does LESS THAN HALF the effort. [place] lifts, holds or supports trunk or limbs, but provides less than half the effort. 2-Substantial/Maximal Assistance-helper does MORE THAN HALF the effort. [place] lifts or holds trunk or limbs and provides more than half the effort. 7-Fytfszhpt-aqijld does ALL the effort. Patient does none of the effort to complete the activity. Or, the assistance of 2 or more helpers is required for the patient to complete the activity. If activity was not attempted, code reason: 7-Patient Refused. 9-Not Applicable-not attempted and the patient did not perform the activity before the current illness, exacerbation or injury. 10-Not Attempted due to Environmental Limitations-(lack of equipment, weather restraints, etc.). 88-Not Attempted due to Medical Conditions or Safety Concerns. Bed Mobility: 6 Transfers (B,C,W/C): 6 Gait: 6 Stairs: 6 Indoor Mobility (Ambulation): Independent Stairs: Independent Prior Devices Use: None PT Evaluation-Current Subjective Patient agrees to PT. Patient c/o [place] Objective Patient Orientation: Normal For Age ROM/Strength ROM Lower Extremities bilateral LE WFL Strength Lower Extremities 5/5 grossly bilateral LE Neuromuscular (Tone, Coordination, Reflexes) grossly intact Sensory Vision: Functional Hearing: Functional Transfers Roll Left to Right (QC): 6 Sit to Lying (QC): 6 Lying to Sitting/Side of Bed(Q: 6 Sit to Stand (QC): 6 Chair/Sqo-md-Ycflg Xfer(QC): 6 Toilet Transfer (QC): 6 Gait Does the Patient Walk?: Yes Mode of Locomotion: Walk Anticipated Mode of Locomotion: Walk Walk 10 feet (QC): 6 Walk 50 ft with 2 Turns(QC): 6 Walk 150 ft (QC): 6 Distance: 300' Gait Assistive Device: None Comments/Gait Description safe and functional with no deviation Balance Sitting Static: Normal Sitting Dynamic: Normal Standing Static: Normal Standing Dynamic: Normal Assessment/Needs Patient is currently at independent OF with all gross motor skills and does not require skilled PT intervention. Rehab Potential: Fair PT Plan Treatment/Plan Treatment Plan: Discontinue PT, goals met Treatment Duration: Feb 27, 2022 Frequency: 1 time per week Estimated Hrs Per Day: .25 hour per day Patient and/or Family Agrees t: Yes Time/GCodes Time In: 806 Time Out: 816 Total Billed Treatment Time: 10 Total Billed Treatment 1 visit EVLowC 10 min GIOVANNA SRIVASTAVA PT Feb 27, 2022 09:47
--- NOTE | 2022-02-27 11:11 | Occ Therapy Progress Note ---
Therapy Progress Note OT orders received and chart was reviewed. Pt currently out of room for MRI. OT to attempt again at a later time if schedule allows. Lina Hamlin OT Feb 27, 2022 11:11
--- NOTE | 2022-02-27 11:41 | Progress Note ---
Progress Note The patient is a 51 YO female, with a Hx of seizure activity 1 year ago, previous pneumonia, depression and HTN, who was brought to the ED at [facility] on 02/26/22 for acute onset of trouble speaking and understanding speech. On arrival to the ED she was reported to present with expressive and receptive aphasia. She also was reported to have difficulty understanding questions, word salad speech. NIH stroke score was 2. No TPA was given in the ED. She was then admitted to medicine from the ED. The patient this morning was doing well and was not in any acute distress or significant pain. She did report having a headache. She was with her who noted that she did have some episodes of speaking that did not make sense last night around 5:30-6:30pm. Following review of imaging and labs she was determined to be clinically stable and able to be DC today. She will undergo MRI and Carotid US prior to her DC. A printed report of both studies will be given to the PT, which she can show to her PCP for follow up after she leaves the hospital. PT will likely need to stay on stroke prophylaxis medical therapy due to her previous history of TIA. Appreciate cardiology, PT and OT. PAXTON HIGUERA Feb 27, 2022 11:41
[2022-02-27] MEDS ORDERED: KCL 20 MEQ TAB (K-DUR) PO NR (12:04)
[2022-02-27] MEDS: ALPRAZolam 0.25 MG (XANAX) TAB PO PRN (12:08)
[2022-02-27] MEDS ORDERED: LORazepam INJ 2 MG/ML (ATIVAN) VIAL ONE (12:21)
[2022-02-27] MEDS ORDERED: LORazepam INJ 2 MG/ML (ATIVAN) VIAL IVP PRN (12:30)
--- NOTE | 2022-02-27 13:16 | Occupational Therapy Eval ---
OT Evaluation-General/PLF Medical Diagnosis Admission Date Feb 26, 2022 at 13:34 Medical Diagnosis: TIA Onset Date: Feb 26, 2022 Therapy Diagnosis Therapy Diagnosis: n/a Height/Weight Height (Feet): 5 Height (Inches): 6.00 Weight (Pounds): 180 Weight (Ounces): 5.0 Precautions Precautions/Isolations: Seizure, Standard Precautions Referral Physician: Rita Referral Reason: Evaluation/Treatment Medical History Pertinent Medical History: Atrial Fib, CVA, HTN Additional Medical History seizure Current History presents to hospital with dysarthria, expressive aphasia, and facial droop. CT of head unremarkable. Reviewed History: Yes Social History Home: Single Level Current Living Status: Spouse Entry Into Home: Stairs With Railing Steps Into Home: 2 ADL-Prior Level of Function SCALE: Activities may be completed with or without assistive devices. 8-Tzjkqsjxea-ncvbcix completes the activity by him/herself with no assistance from a helper. 5-Set-up or Clean-up Assistance-helper sets up or cleans up; patient completes activity. [place] assists only prior to or following the activity. 4-Supervision or Touching Assistance-helper provides verbal cues and/or touching/steadying and/or contact guard assistance as patient completes activity. Assistance may be provided throughout the activity or intermittently. 3-Partial/Moderate Assistance-helper does LESS THAN HALF the effort. [place] lifts, holds or supports trunk or limbs, but provides less than half the effort. 2-Substantial/Maximal Assistance-helper does MORE THAN HALF the effort. [place] lifts or holds trunk or limbs and provides more than half the effort. 3-Ftpoagwkq-wlqsim does ALL the effort. Patient does none of the effort to complete the activity. Or, the assistance of 2 or more helpers is required for the patient to complete the activity. If activity was not attempted, code reason: 7-Patient Refused. 9-Not Applicable-not attempted and the patient did not perform the activity before the current illness, exacerbation or injury. 10-Not Attempted due to Environmental Limitations-(lack of equipment, weather restraints, etc.). 88-Not Attempted due to Medical Conditions or Safety Concerns. Self Care: Independent Functional Cognition: Independent OT Current Status Subjective Pt denies or self care concerns. Appearance Pt left supine in bed, radiology staff in room. Mental Status/Objective Patient Orientation: Person, Place, Situation Current Upper Extremity ROM WNL Upper Extremity Strength WNL ADL-Treatment Eating (QC): 6 Lower Body Dressing (QC): 6 On/Off Footwear (QC): 6 Toileting Hygiene (QC): 6 Pt up ad pedro at OT arrival. No unsteadiness observable. She was Able to perform toilet transfer and all steps of toileting without assist. She denies any self care concerns. Coordination appears intact. No further OT services warranted at this time. 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 2=Patient will verbalize/demonstrate understanding of assistive devices/modifications for ADL. 3=Patient will improve strength/tolerance for activity to enable patient to perform ADL's. OT Education/Plan Problem List/Assessment Assessment: No Skilled OT Needs ID'd Discharge Recommendations Plan/Recommendations: Discontinue OT Therapy Discharge Recommendati: Home & Family Treatment Plan/Plan of Care Treatment,Training & Education: Yes Patient would benefit from OT for education, treatment and training to promote independence in ADL's, mobility, safety and/or upper extremity function for ADL's. Plan of Care: ADL Retraining Treatment Duration: Feb 27, 2022 Frequency: 1 time per week Estimated Hrs Per Day: .25 hour per day Agreement: Yes Time/GCodes Start Time: 12:57 Stop Time: 13:06 Total Time Billed (hr/min): 9 Billed Treatment Time 1 visit Lina Proctor OT Feb 27, 2022 13:16
--- NOTE | 2022-02-27 13:42 | Diagnostic Imaging Report ---
PROCEDURE: MR imaging of the brain without contrast. TECHNIQUE: Multiplanar, multisequence MR imaging of the brain was performed without contrast. DATE: February 27, 2022. COMPARISON: CT head without contrast February 26, 2022. CT angiography head and neck February 26, 2022. MRI brain February 17, 2011. HISTORY: 51-year-old female, confusion and speech difficulties. FINDINGS: There is no restricted diffusion. There are no areas of abnormal intracranial susceptibility. The ventricles and CSF spaces are normal in size and configuration for patient age. There is no abnormal extra axial fluid collection. There is no acute intracranial hemorrhage. There is no mass effect or midline shift. There is a T2 hyperintense focus in the left side of the midbrain which is unchanged since November 21, 2021. There is no additional area of abnormal intracranial signal. There is normal aeration of the visualized paranasal sinuses and mastoid air cells. IMPRESSION: 1. No identified acute intracranial abnormality. 2. Unchanged small focus of T2 hyperintense signal in the left midbrain since at least 2010. Dictated by: Dictated on workstation # [id number]
--- NOTE | 2022-02-27 13:44 | Diagnostic Imaging Report ---
PROCEDURE: US carotid duplex, bilateral. TECHNIQUE: Multiple real-time grayscale images were obtained over the carotid arteries in various projections, bilaterally. Additional spectral analysis and color Doppler duplex images were also obtained. INDICATION: Strokelike symptoms, CVA COMPARISON: Carotid ultrasound from 12/29/2015. CTA Head and Neck from yesterday. FINDINGS: Right carotid circulation: The right common carotid artery is normal in caliber, and there is no significant stenosis. Peak systolic velocity in the right common carotid artery is 89 cm/sec. There is no atherosclerotic plaque or narrowing in the carotid bulb or proximal ICA. The peak systolic velocity in the proximal internal carotid artery is 85 cm/sec. Proximal aspect of the external carotid artery is patent with expected high resistance waveforms, and peak systolic velocity of 91 cm/sec. Left carotid circulation: The left common carotid artery is normal in caliber, and there is no significant stenosis. Peak systolic velocity in the left common carotid artery is 95 cm/sec. There is no atherosclerotic plaque or narrowing in the carotid bulb or proximal ICA. The peak systolic velocity in the proximal internal carotid artery is 78 cm/sec. Proximal aspect of the external carotid artery is patent with expected high resistance waveforms, and peak systolic velocity of 71 cm/sec. Vertebral arteries: Flow in the bilateral vertebral arteries is antegrade. IMPRESSION: 1. Normal proximal internal carotid arteries. 2. Patent vertebral arteries with antegrade flow. Parameters based on the consensus panel Pardo-Scale and Doppler ultrasound criteria published September 2003, Radiology, Volume 229. DOPPLER (peak systolic velocity M/S Right Left CCA .89 .95 ICA Proximal .53 .78 ICA Mid .85 .78 ICA Distal .58 .65 RATIO .95 .82 ECA .91 .71 VERT .30 .37 Dictated by: Dictated on workstation # [id number]
[2022-02-27] MEDS ORDERED: CYCL10TA25 PO (14:33)
[2022-02-27] MEDS ORDERED: PARO40TA3 PO (14:33)
[2022-02-27] MEDS ORDERED: MTP100TCR PO (14:33)
[2022-02-27] MEDS ORDERED: LISI10TA25 PO (14:33)
[2022-02-27] MEDS: ENOXAPARIN 40 MG/0.4 ML (LOVENOX) SYR SC SCH (15:25)
[2022-02-27] MEDS ORDERED: CLOP75TA28 PO (17:17)
[2022-02-27] MEDS ORDERED: ATOR80TA76 PO (17:17)
[2022-02-27] MEDS ORDERED: METO-333 PO (17:17)
[2022-02-27] MEDS ORDERED: ASPI-1238 PO (17:17)
--- NOTE | 2022-02-27 17:18 | Discharge Summary ---
Discharge Summary Hospital Course Was the Problem List Reviewed?: Yes Problems/Dx: (1) TIA (transient ischemic attack) (2) Hypertension Status: Acute Qualifiers: Qualified Codes: I10 - Essential (primary) hypertension (3) Receptive aphasia Status: Acute (4) Expressive aphasia Status: Acute Hospital Course Date of Admission: Feb 26, 2022 at 13:34 Admission Diagnosis : Family Physician/Provider: August Lindquist MD Date of Discharge: 02/27/22 Discharge Diagnosis: TIA, no evidence of Atrial fib only PAC's on loop recorder per Dr Jones, h/o seizure 1 year ago, abnormal CT brain but normal MRI, HTN Hospital Course: The patient is a 51 YO female, with a Hx of seizure activity 1 year ago, previous pneumonia, depression and HTN, who was brought to the ED at [facility] on 02/26/22 for acute onset of trouble speaking and understanding speech. On arrival to the ED she was reported to present with expressive and receptive aphasia. She also was reported to have difficulty understanding questions, word salad speech. NIH stroke score was 2. No TPA was given in the ED. She was then admitted to medicine from the ED. The patient this morning was doing well and was not in any acute distress or significant pain. She did report having a headache. She was with her who noted that she did have some episodes of speaking that did not make sense last night around 5:30-6:30pm. Following review of imaging and labs she was determined to be clinically stable and able to be DC today. She will undergo MRI and Carotid US prior to her DC. A printed report of both studies will be given to the PT, which she can show to her PCP for follow up after she leaves the hospital. PT will likely need to stay on stroke prophylaxis medical therapy due to her previous history of TIA. Appreciate cardiology, PT and OT. PAXTON HIGUERA Labs and Pending Lab Test: Laboratory Tests 02/27/22 05:05: White Blood Count 7.8, Red Blood Count 4.07, Hemoglobin 11.2L, Hematocrit 35, Me an Corpuscular Volume 86, Mean Corpuscular Hemoglobin 28, Mean Corpuscular Hemoglobin Concent 32, Red Cell Distribution Width 15.9H, Platelet Count 203, Mean Platelet Volume 10.5, Immature Granulocyte % (Auto) 0, Neutrophils (%) (Auto) 48, Lymphocytes (%) (Auto) 41, Monocytes (%) (Auto) 7, Eosinophils (%) (Auto) 3, Basophils (%) (Auto) 1, Neutrophils # (Auto) 3.7, Lymphocytes # (Auto) 3.2, Monocytes # (Auto) 0.5, Eosinophils # (Auto) 0.3, Basophils # (Auto) 0.1, Immature Granulocyte # (Auto) 0.0, Sodium Level 137, Potassium Level 3.4L, Chloride Level 105, Carbon Dioxide Level 20L, Anion Gap 12, Blood Urea Nitrogen 11, Creatinine 0.83, Estimat Glomerular Filtration Rate 86, BUN/Creatinine Ratio 13, Glucose Level 91, Calcium Level 9.2, Corrected Calcium 9.8, Total Bilirubin 0.5, Aspartate Amino Transf (AST/SGOT) 18, Alanine Aminotransferase (ALT/SGPT) 20, Alkaline Phosphatase 79, Total Protein 6.1L, Albumin 3.3, Triglycerides Level 203H, Cholesterol Level 205H, LDL Cholesterol Direct 139H, VLDL Cholesterol 41H, HDL Cholesterol 34L Home Meds Active Aspirin EC (Aspirin) 81 Mg Tablet.dr 81 Mg PO DAILY Metoprolol Tartrate 25 Mg Tablet 25 Mg PO BID Atorvastatin Calcium 80 Mg Tablet 80 Mg PO HS Clopidogrel (Clopidogrel Bisulfate) 75 Mg Tablet 75 Mg PO DAILY Reported Paroxetine HCl 40 Mg Tablet 40 Mg PO DAILY Lisinopril 10 Mg Tablet 10 Mg PO DAILY Cyclobenzaprine HCl 10 Mg Tablet 10 Mg PO HS PRN Metoprolol Succinate 100 Mg Tab.er.24h 100 Mg PO DAILY Assessment/Pt Instructions PCP 1 week Discharge Planning: <30 minutes discharge planning Discharge Instructions Discharge Diet: No Restrictions Discharge Physical Examination Vital Signs Vital Signs Date Time Temp Pulse Resp B/P (MAP) Pulse Ox O2 Delivery O2 Flow Rate FiO2 02/27/22 16:00 70 21 119/64 (82) 96 Room Air 02/27/22 15:46 36.6 02/26/22 19:30 21 General Appearance: No Apparent Distress, WD/WN, Chronically ill Neurologic/Psychiatric: Alert, Oriented x3, No Motor/Sensory Deficits, Normal Mood/Affect Allergies: Coded Allergies: morphine (Verified Allergy, Unknown, 04/27/17) Discharge Summary Date of Admission Feb 26, 2022 at 13:34 Date of Discharge Discharge Date: Feb 27, 2022 Admission Diagnosis Assessment: TIA History of new onset seizure no longer on seizure medication History of pneumonia Depression HTN Plan: Supportive care Neuro checks Stroke protocol evaluation Discharge Diagnosis (1) TIA (transient ischemic attack) (2) Hypertension Status: Acute Qualifiers: Qualified Codes: I10 - Essential (primary) hypertension (3) Receptive aphasia Status: Acute (4) Expressive aphasia Status: Acute GERALDINE MÉNDEZ DO Feb 27, 2022 17:17
== END 2022-02-27 17:58 | disposition home or self-care (01) ==
LOC: EDUNIT# 12:13 → ER 12:15 → CSD 13:34
PROVIDERS: ADMIT Internal Medicine; ATTEND Internal Medicine
DX: G45.9 Transient cerebral ischemic attack, unspecified (principal); R47.01 Aphasia; F32.A Depression, unspecified; R29.702 NIHSS score 2; E66.9 Obesity, unspecified; R07.89 Other chest pain; R00.2 Palpitations; R53.83 Other fatigue; I11.9 Hypertensive heart disease without heart failure; Z79.899 Other long term (current) drug therapy; Z68.36 Body mass index [BMI] 36.0-36.9, adult; Z87.01 Personal history of pneumonia (recurrent)
CPT/HCPCS: 36415; 70450; 70496; 70498; 70551; 71045; 80053; 80061; 81000; 82947; 83036; 84443; 84484; 85025; 85379; 85610; 85730; 93005; 93041; 93306; 93880; 96372; 96374; 96375

== ENCOUNTER 2022-04-05 13:49 | Observation (INO) | payer SELFPAY ==
[~2022-04-05] VITALS: Ht 167 cm; Wt 99.4 kg
[2022-04-05] VITALS (7 sets, daily range): BP systolic 111–121; BP diastolic 56–100
[~2022-04-05 13:49] MED LIST changes: +ASPI-1238 PO; +ATOR80TA76 PO; +CLOP75TA28 PO; +MTP100TCR PO
[2022-04-05] MEDS ORDERED: ASPIRIN 81 MG CHEW (CHILDREN'S ASA) PO ONE (14:00)
[2022-04-05 14:14] LABS: BASOPHILS % (AUTO) 1 % (0-10); EOSINOPHILS # (AUTO) 0.6 10^3/uL (0.0-0.3); EOSINOPHILS % (AUTO) 10 % (0-10); HEMATOCRIT 39 % (35-52); HEMOGLOBIN 12.9 g/dL (11.5-16.0); LYMPHOCYTES # (AUTO) 2.9 10^3/uL (1.0-4.0); LYMPHOCYTES % (AUTO) 48 % (12-44); MEAN CORPUSCULAR HEMOGLOBIN 28 pg (25-34); MEAN CORPUSCULAR HGB CONC 33 g/dL (32-36); MEAN CORPUSCULAR VOLUME 83 fL (80-99); MEAN PLATELET VOLUME 10.1 fL (9.0-12.2); MONOCYTES # (AUTO) 0.4 10^3/uL (0.0-1.0); MONOCYTES % (AUTO) 6 % (0-12); NEUTROPHILS # (AUTO) 2.2 10^3/uL (1.8-7.8); NEUTROPHILS % (AUTO) 36 % (42-75); PLATELET COUNT 275 10^3/uL (130-400)
[2022-04-05] MEDS ORDERED: LACTATED RINGERS 1,000 ML IV ONE (14:15)
[2022-04-05 14:30] LABS: PROTHROMBIN TIME PATIENT 13.6 SEC (12.2-14.7)
[2022-04-05] MEDS ORDERED: fentaNYL INJ 100 MCG/2 ML AMP IVP ONE (14:30)
[2022-04-05 14:31] LABS: ALBUMIN 4.2 GM/DL (3.2-4.5)
[2022-04-05 14:33] LABS: CALCIUM 9.7 MG/DL (8.5-10.1)
[2022-04-05 14:34] LABS: TOTAL PROTEIN 7.6 GM/DL (6.4-8.2)
[2022-04-05 14:36] LABS: BILIRUBIN,TOTAL 0.5 MG/DL (0.1-1.0)
[2022-04-05 14:38] LABS: CREATININE SERUM 1.02 MG/DL (0.60-1.30)
--- NOTE | 2022-04-05 14:41 | Diagnostic Imaging Report ---
EXAMINATION: Chest 1 view HISTORY: Chest pain. COMPARISON: 02/26/2022. FINDINGS: The lung volumes are normal. No focal consolidation is seen. No large pleural effusion or pneumothorax is seen. The cardiomediastinal silhouette is normal in size and contour. Loop recorder is noted overlying the cardiac silhouette. No acute osseous abnormality is seen. IMPRESSION: 1. No acute pleuroparenchymal process. Dictated by: Dictated on workstation # [id number]
[2022-04-05 14:42] LABS: CREATINE KINASE MB 4.8 NG/ML (<6.6)
[2022-04-05 14:54] LABS: TSH (THYROID ANALYZER) 2.27 UIU/ML (0.35-4.94)
--- NOTE | 2022-04-05 14:57 | ED Cardiac General ---
History of Present Illness General Chief Complaint: Chest Pain Stated Complaint: CHEST TIGHTNESS, SOB Nursing Triage Note: PT AMB TO RM 7 W CO OF CHEST PAIN SINCE SUNDAY, RATES PAIN 8/10. PT HAS HX A-FIB, PT HAS LOOP RECORDER. PT CO OF SOA AND RECENT TIA 2021. Source: patient (PT IS LIMITED HISTORIAN, SOMEWHAT LIMITED MEMORY), spouse History of Present Illness Date Seen by Provider: April 05, 2022 Time Seen by Provider: 13:53 Initial Comments PT ARRIVES VIA POV FROM HOME WITH STATES THAT SINCE Sunday04/03/22, SHE HAS BEEN HAVING CHEST PAIN, SHORTNESS OF BREATH, AND RAPID HEART RATE OF 130'S-140'S. SYMPTOMS ALL WORSE WITH MINIMAL EXERTION STATES SHE FEELS LIKE SHE IS GOING TO PASS OUT WITH ANY EXERTION RATES PAIN IN CHEST 8/10 AND DESCRIBES IT A TIGHTNESS C/O SWEATS C/O NAUSEA, BUT NO VOMITING AND ABLE TO EAT AND DRINK NO SWELLING IN LEGS/FEET OR PAIN IN CALVES NO COUGH, FEVER OR RECENT ILLNESS HAS HISTORY OF SAME HAS BEEN DX WITH TACHYCARDIA IN THE PAST. PT HAS LOOP RECORDER IN PLACE FOR HISTORY OF SYNCOPE VS SEIZURE ACTIVITY 01/2021. PT WAS ADMITTED 02/26/22 FOR TIA WITH SPONTANEOUS RESOLUTION OF SYMPTOMS. INTERROGATION OF LOOP RECORDER AT THAT TIME DID NOT SHOW ANY ARRHYTHMIAS PT HAS NOT FOLLOWED UP WITH ANYONE SINCE THAT VISIT. PT DOES HAVE A HISTORY OF NON-COMPLIANCE PT STATES HER ONLY MEDICATIONS ARE LISINOPRIL, PAROXETINE AND AMITRIPTYLENE. PT IS SUPPOSED TO BE TAKING METOPROLOL BID, ACCORDING TO HER RECORDS FROM ADMIT IN FEBRUARY, BUT PT IS NOT TAKING IT. PT DOES NOT TAKE ASPIRIN OR ANY BLOOD THINNERS. 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 CARPIO SECURITY CHIEF MUSEUM: DR. WEEKS Allergies and Home Medications Allergies Coded Allergies: morphine (Verified Allergy, Unknown, 04/27/17) Patient Home Medication List Home Medication List Reviewed: Yes Acetaminophen (Tylenol Extra Strength) 500 Mg Tablet, 500-1,000 MG PO Q8H PRN for PAIN-MILD (1-4), (Reported) Entered as Reported by: ELIS FRANKLIN on 04/06/22 1038 Last Action: Reviewed Amitriptyline HCl (Amitriptyline HCl) 25 Mg Tablet, 25 MG PO HS, (Reported) Entered as Reported by: ELIS FRANKLIN on 04/06/22 1038 Last Action: Reviewed Aspirin (Aspirin EC) 81 Mg Tablet.dr, 81 MG PO DAILY Prescribed by: SABRINA ARNOLD on 04/06/22 105 Cephalexin (Cephalexin) 500 Mg Tablet, 500 MG PO BID Prescribed by: SABRINA ARNOLD on 04/06/22 105 Metoprolol Tartrate (Metoprolol Tartrate) 50 Mg Tablet, 50 MG PO BID Prescribed by: SABRINA ARNOLD on 04/06/22 105 Nitroglycerin (Nitroglycerin) 0.4 Mg Tab.subl, 0 MG SL UD PRN for CHEST PAIN (ANGINA) Prescribed by: SABRINA ARNOLD on 04/06/22 105 Paroxetine HCl (Paroxetine HCl) 40 Mg Tablet, 40 MG PO DAILY, (Reported) Entered as Reported by: ELIS FRANKLIN on 02/27/221432 Last Action: Reviewed Discontinued Medications Aspirin (Aspirin EC) 81 Mg Tablet.dr, 81 MG PO DAILY Discontinued Reason: No Longer Taking Prescribed by: GERALDINE MÉNDEZ on 02/27/221716 Last Action: Discontinued Atorvastatin Calcium (Atorvastatin Calcium) 80 Mg Tablet, 80 MG PO HS Discontinued Reason: No Longer Taking Prescribed by: GERALDINE MÉNDEZ on 02/27/221716 Last Action: Discontinued Clopidogrel Bisulfate (Clopidogrel) 75 Mg Tablet, 75 MG PO DAILY Discontinued Reason: No Longer Taking Prescribed by: GERALDINE MÉNDEZ on 02/27/221716 Last Action: Discontinued Cyclobenzaprine HCl (Cyclobenzaprine HCl) 10 Mg Tablet, 10 MG PO HS PRN for MUSCLE SPASMS, (Reported) Discontinued Reason: No Longer Taking Entered as Reported by: ELIS FRANKLIN on 02/27/221432 Last Action: Discontinued Lisinopril (Lisinopril) 10 Mg Tablet, 10 MG PO DAILY, (Reported) Entered as Reported by: ELIS FRANKLIN on 02/27/221432 Last Action: Reviewed Metoprolol Tartrate (Metoprolol Tartrate) 25 Mg Tablet, 25 MG PO BID Discontinued Reason: No Longer Taking Prescribed by: GERALDINE MÉNDEZ on 02/27/221716 Last Action: Discontinued Review of Systems Review of Systems Constitutional: see HPI, diaphoresis, dizziness EENTM: No Symptoms Reported Respiratory: See HPI, Shortness of Air, SOA With Exertion, SOA at Rest Cardiovascular: See HPI, Chest Pain; Denies Edema; Irregular Heart Rate, Lightheadedness, Palpitations; Denies Syncope Gastrointestinal: Denies Abdominal Pain, Denies Constipated, Denies Diarrhea; Nausea; Denies Vomiting Genitourinary: No Symptoms Reported Musculoskeletal: other (LEFT ARM PAIN AT TIMES) Skin: no symptoms reported Psychiatric/Neurological: See HPI, Anxiety; Denies Headache, Denies Numbness, Denies Paresthesia, Denies Seizure, Denies Tingling, Denies Tremors, Denies Weakness Endocrine: No Symptoms Reported Hematologic/Lymphatic: No Symptoms Reported Past Jxwfiyd-Hlkrki-Tkamnd Hx Patient Social History Tobacco Use?: No Smoking Status: Never a Smoker Substance use?: No Alcohol Use?: No Pt feels they are or have been: No Immunizations Up To Date Tetanus Booster (TDap): More than 5yrs PED Vaccines UTD: Yes Seasonal Allergies Seasonal Allergies: No Past Medical History Surgery/Hospitalization HX: IRREGULAR HR, TIA Surgeries: Yes (WISDOM TEETH) Respiratory: Yes Pneumonia Cardiac: Yes (TACHYCARDIA; LOOP RECORDER PLACED IN 2020 AFTER SYNCOPE VS SEIZURE) High Cholesterol, Hypertension, Irregular Heartbeat, Syncope Neurological: Yes Concussion, Headaches /Migraines, Seizure Disorder, Stroke Last Menstrual Period: April 05, 2022 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 Disorders: No 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 Disorders: Denies 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 Sexually Transmitted Disease: No Genitourinary: No Gastrointestinal: No Musculoskeletal: Yes (CHRONIC NECK PAIN; CHRONIC RIGHT KNEE PAIN/TORN MENISCUS PER MRI 01/26/21) Degenerate Disk Disease, Scoliosis, Chronic Back Pain Endocrine: No HEENT: No Cancer: No Psychosocial: Yes Anxiety, Depression Integumentary: No Blood Disorders: No Family Medical History Cardiovascular disease FH: breast cancer 19 MOTHER (METS) FH: lung cancer 19 FATHER FHx: mental retardation G8 BROTHER Myocardial infarction 19 FATHER (X2) Heart Disease, Cancer Physical Exam Vital Signs Vital Signs - First Documented 04/05/22 04/05/22 13:50 15:54 Temp 36.0 Pulse 146 Resp 14 B/P (MAP) 136/104 (115) Pulse Ox 100 O2 Delivery Room Air Capillary Refill : Less Than 3 Seconds Height, Weight, BMI Height: 5'6.00" Weight: 180lbs. 5.0oz. 81.834716bv; 29.00 BMI Method:Stated General Appearance: No Apparent Distress, WD/WN, Anxious HEENT: PERRL/EOMI Neck: Full Range of Motion, Normal Inspection, Non Tender, Supple; No Carotid Bruit, No JVD Respiratory: Chest Non Tender, Normal Breath Sounds, No Accessory Muscle Use, No Respiratory Distress Cardiovascular: No Edema, No JVD, No Murmur, Normal Peripheral Pulses, Tachycardia (120'S-130'S--SINUS TACH. ) Gastrointestinal: Non Tender, Soft Extremity: Normal Capillary Refill, Normal Inspection, Normal Range of Motion, Non Tender, No Calf Tenderness, No Pedal Edema Neurologic/Psychiatric: Alert, Oriented x3 (BUT HAS SOME MEMORY IMPAIRMENT), No Motor/Sensory Deficits, molder helper II-XII Norm as Tested Skin: Normal Color, Warm/Dry; No Rash Progress/Results/Core Measures Results/Orders Lab Results Laboratory Tests Test 04/05/22 14:00 Range/Units White Blood Count 6.0 4.3-11.0 10^3/uL Red Blood Count 4.68 3.80-5.11 10^6/uL Hemoglobin 12.9 11.5-16.0 g/dL Hematocrit 39 35-52 % Mean Corpuscular Volume 83 80-99 fL Mean Corpuscular Hemoglobin 28 25-34 pg Mean Corpuscular Hemoglobin Concent 33 32-36 g/dL Red Cell Distribution Width 15.5 H 10.0-14.5 % Platelet Count 275 130-400 10^3/uL Mean Platelet Volume 10.1 9.0-12.2 fL Immature Granulocyte % (Auto) 0 % Neutrophils (%) (Auto) 36 L 42-75 % Lymphocytes (%) (Auto) 48 H 12-44 % Monocytes (%) (Auto) 6 0-12 % Eosinophils (%) (Auto) 10 0-10 % Basophils (%) (Auto) 1 0-10 % Neutrophils # (Auto) 2.2 1.8-7.8 10^3/uL Lymphocytes # (Auto) 2.9 1.0-4.0 10^3/uL Monocytes # (Auto) 0.4 0.0-1.0 10^3/uL Eosinophils # (Auto) 0.6 H 0.0-0.3 10^3/uL Basophils # (Auto) 0.0 0.0-0.1 10^3/uL Immature Granulocyte # (Auto) 0.0 0.0-0.1 10^3/uL Prothrombin Time 13.6 12.2-14.7 SEC INR Comment 1.0 0.8-1.4 Activated Partial Thromboplast Time 26 24-35 SEC D-Dimer 0.66 H 0.00-0.49 UG/ML Sodium Level 142 135-145 MMOL/L Potassium Level 3.0 L 3.6-5.0 MMOL/L Chloride Level 107 98-107 MMOL/L Carbon Dioxide Level 21 21-32 MMOL/L Anion Gap 14 5-14 MMOL/L Blood Urea Nitrogen 17 7-18 MG/DL Creatinine 1.02 0.60-1.30 MG/DL Estimat Glomerular Filtration Rate 67 BUN/Creatinine Ratio 17 Glucose Level 128 H 70-105 MG/DL Calcium Level 9.7 8.5-10.1 MG/DL Corrected Calcium 9.5 8.5-10.1 MG/DL Magnesium Level 2.0 1.6-2.4 MG/DL Total Bilirubin 0.5 0.1-1.0 MG/DL Aspartate Amino Transf (AST/SGOT) 41 H 5-34 U/L Alanine Aminotransferase (ALT/SGPT) 27 0-55 U/L Alkaline Phosphatase 103 40-136 U/L Total Creatine Kinase 377 H 29-168 U/L Creatine Kinase MB 4.8 <6.6 NG/ML Myoglobin 185.7 H 10.0-92.0 NG/ML Troponin I < 0.028 <0.028 NG/ML B-Type Natriuretic Peptide < 10.0 <100.0 PG/ML Total Protein 7.6 6.4-8.2 GM/DL Albumin 4.2 3.2-4.5 GM/DL Amylase Level 106 25-125 U/L Lipase 34 8-78 U/L TSH [facility] Testing 2.27 0.35-4.94 UIU/ML Serum Test, Qualitative NEGATIVE NEGATIVE Serum Alcohol < 10 <10 MG/DL My Orders Orders - VASILE SARMIENTO DO Ed Iv/Invasive Line Start (04/05/22 13:54) Ekg Tracing (04/05/22 13:54) O2 (04/05/22 13:54) Monitor-Rhythm Ecg Trace Only (04/05/22 13:54) Cbc With Automated Diff (04/05/22 13:54) Magnesium (04/05/22 13:54) Chest 1 View, Ap/Pa Only (04/05/22 13:54) Ekg Tracing (04/05/22 13:54) Comprehensive Metabolic Panel (04/05/22 13:54) Myoglobin Serum (04/05/22 13:54) Protime With Inr (04/05/22 13:54) Partial Thromboplastin Time (04/05/22 13:54) O2 (04/05/22 13:54) Ed Iv/Invasive Line Start (04/05/22 13:54) Creatine Kinase (04/05/22 13:54) Creatine Kinase Mb (04/05/22 13:54) Lipase (04/05/22 13:54) Amylase (04/05/22 13:54) Bnp [place] (04/05/22 13:54) Fibrin Degradation Products (04/05/22 13:54) Troponin I Danie (04/05/22 13:54) Aspirin Chewable Tablet (Baby Aspirin Ch (04/05/22 14:00) Thyroid Analyzer (04/05/22 13:54) Alcohol (04/05/22 14:05) Drug Screen Stat (Urine) (04/05/22 14:05) Hcg,Qualitative Serum (04/05/22 14:05) Ua Culture If Indicated (04/05/22 14:05) Ed Iv/Invasive Line Start (04/05/22 14:05) Lactated Ringers (Lr 1000 Ml Iv Solution (04/05/22 14:15) Fentanyl Inj (Sublimaze Injection) (04/05/22 14:30) Ct Angio Chest W (04/05/22 14:46) Iohexol Injection (Omnipaque 350 Mg/Ml 1 (04/05/22 15:00) Received Contrast (Hold Metformin- Contr (04/05/22 15:00) Sodium Chloride Flush (Catheter Flush Sy (04/05/22 15:00) Ns (Ivpb) (Sodium Chloride 0.9% Ivpb Bag (04/05/22 15:00) Medications Given in ED Vital Signs/I&O 04/05/22 04/05/22 13:50 15:54 Temp 36.0 Pulse 146 108 Resp 14 B/P (MAP) 136/104 (115) 105/93 Pulse Ox 100 95 O2 Delivery Room Air Blood Pressure Mean: 115 Progress Progress Note : Progress Note GIVEN ASPIRIN AND IV FLUIDS NTG HELD DUE TO BP 110 SYSTOLIC GIVEN FENTANYL FOR PAIN NO DETERIORATION IN PT'S CONDITION DURING ER STAY. Initial ECG Impression Date: April 05, 2022 Initial ECG Impression Time: 14:00 Initial ECG Rate: 135 Initial ECG Rhythm: S.Tach Diagnostic Imaging Comments CXR--PER RADIOLOGIST REPORT AT 1445 FINDINGS: The lung volumes are normal. No focal consolidation is seen. No large pleural effusion or pneumothorax is seen. The cardiomediastinal silhouette is normal in size and contour. Loop recorder is noted overlying the cardiac silhouette. No acute osseous abnormality is seen. IMPRESSION: 1. No acute pleuroparenchymal process. CT CHEST ANGIOGRAM--PER RADIOLOGIST REPORT AT 1527 COMPARISON: 02/16/2021 There is good opacification of pulmonary arteries without intraluminal filling defect identified. Thoracic aorta is of normal caliber. There is improved aeration of both lungs without evidence of consolidation. No significant pleural or pericardial fluid is identified. There is no pathologically enlarged adenopathy in the chest. IMPRESSION: No CTA evidence of pulmonary embolism or other acute abnormality of the pneumothorax. Reviewed: Reviewed by Al Departure Communication (Admissions) 1527/1530--PAGING/SPOKE WITH DR. WEEKS, [employer]. WILL SEE PT IN CONSULT. 1530--SPOKE WITH DR. ARNOLD, ACCEPTS PT FOR ADMIT Impression Primary Impression: Chest pain Additional Impressions: Sinus tachycardia Non-compliance Disposition: ADMITTED INPATIENT Condition: Stable Admissions Decision to Admit Reason: Admit from ER (General) Decision to Admit/Date: April 05, 2022 Time/Decision to Admit Time: 15:30 Departure-Patient Inst. Referrals: RENETTA CARPIO MD (PCP/Family) Primary Care Physician Scripts Cephalexin (Cephalexin) 500 Mg Tablet 500 MG PO BID, #10 TAB Prov: SABRINA ARNLOD MD 04/06/22 Aspirin (Aspirin EC) 81 Mg Tablet. 81 MG PO DAILY, #30 TAB Prov: SABRINA ARNOLD MD 04/06/22 Metoprolol Tartrate (Metoprolol Tartrate) 50 Mg Tablet 50 MG PO BID, #60 TAB Prov: SABRINA ARNOLD MD 04/06/22 Nitroglycerin (Nitroglycerin) 0.4 Mg Tab.subl 0 MG SL UD PRN for CHEST PAIN (ANGINA), #5 TAB Prov: SABRINA ARNOLD MD 04/06/22 VASILE SARMIENTO DO April 05, 2022 14:57
[2022-04-05] MEDS ORDERED: HOLD METFORMIN - RECEIVED CONTRAST 20 ML VIAL IV SCH (15:00)
[2022-04-05] MEDS ORDERED: NS 100 ML (IVPB) BAG IV ONE (15:00)
[2022-04-05] MEDS ORDERED: CATHETER FLUSH 10 ML SYR IV PRN (15:00)
[2022-04-05] MEDS ORDERED: IOHEXOL 350 MG/ML 100 ML (OMNIPAQUE 350) VIAL IV ONE (15:00)
--- NOTE | 2022-04-05 15:24 | Diagnostic Imaging Report ---
PROCEDURE: CT angiography of the chest with contrast. TECHNIQUE: Multiple contiguous axial images were obtained through the chest after uneventful bolus administration of intravenous contrast. 3D reconstructed CTA MIP acquisitions were also performed. Auto Exposure Controls were utilized during the CT exam to meet ALARA standards for radiation dose reduction. INDICATION: Chest pain and dyspnea. COMPARISON: 02/16/2021 There is good opacification of pulmonary arteries without intraluminal filling defect identified. Thoracic aorta is of normal caliber. There is improved aeration of both lungs without evidence of consolidation. No significant pleural or pericardial fluid is identified. There is no pathologically enlarged adenopathy in the chest. IMPRESSION: No CTA evidence of pulmonary embolism or other acute abnormality of the pneumothorax. Dictated by: Dictated on workstation # [id number]
[2022-04-05 16:26] LABS: BILIRUBIN,URINE NEGATIVE (NEGATIVE); CLARITY,URINE SL CLOUDY; COLOR,URINE RED; GLUCOSE, URINE (UA) NEGATIVE (NEGATIVE); KETONES,URINE TRACE (NEGATIVE); LEUKOCYTE ESTERASE ,URINE 1+ (NEGATIVE); NITRITE,URINE POSITIVE (NEGATIVE); PROTEIN,URINE 3+ (NEGATIVE)
[2022-04-05 16:43] LABS: BACTERIA,URINE NEGATIVE /HPF; RBC,URINE TNTC /HPF; WBC,URINE RARE /HPF
[2022-04-05] MEDS ORDERED: morphine INJ 4 MG/ML 1 ML (VIAL/SYRINGE) IV PRN (16:45)
[2022-04-05] MEDS ORDERED: ONDANSETRON 4 MG/2 ML (SDV) Z0FRAN IVP PRN (16:45)
[2022-04-05] MEDS ORDERED: LORazepam INJ 2 MG/ML (ATIVAN) VIAL IV PRN (16:45)
[2022-04-05] MEDS ORDERED: NITROGLYCERIN 0.4 MG SL TABS BTL 25'S SL PRN (16:45)
[2022-04-05] MEDS ORDERED: fentaNYL INJ 100 MCG/2 ML AMP IV PRN (16:45)
[2022-04-05 16:56] LABS: AMPHETAMINE SCREEN, URINE NEGATIVE (NEGATIVE); BARBITURATE SCREEN URINE NEGATIVE (NEGATIVE); BENZODIAZEPINES SCREEN URINE NEGATIVE (NEGATIVE); CANNABINOID SCREEN, URINE NEGATIVE (NEGATIVE); COCAINE SCREEN URINE NEGATIVE (NEGATIVE); METHADONE STAT NEGATIVE (NEGATIVE); OPIATE SCREEN URINE NEGATIVE (NEGATIVE); OXYCODONE STAT NEGATIVE (NEGATIVE); PROPOXYPHENE STAT NEGATIVE (NEGATIVE); TRICYCLIC ANTIDEPRESSANTS SCRE POSITIVE (NEGATIVE)
[2022-04-05] MEDS: 1/2 NS W/KCL 20 MEQ/L 1,000 ML IV SCH (17:12)
--- NOTE | 2022-04-05 17:58 | Tele-ICU Progress Note ---
Progress Note PATENT IS TELEMETRY STATUS Video assessment done , Hemodynamically stable Available charting reviewed SIGN OFF " ICU CONSULT " CONTINUE TO MONITOR PER USUAL TELE-ICU PROTOCOL No need for Tele-ICU interventions Plans as delineated by bedside physicians / consultants Focused Exam Height, Weight, BMI Height: 5'6.00" Weight: 180lbs. 5.0oz. 81.074272ul; 35.10 BMI Method:Stated DOMINGO ROD MD April 05, 2022 17:58
[2022-04-06] VITALS (9 sets, daily range): BP systolic 106–162; BP diastolic 76–121
[2022-04-06] MEDS: 1/2 NS W/KCL 20 MEQ/L 1,000 ML IV SCH ×2 (00:35→08:23)
[2022-04-06 04:43] LABS: BASOPHILS % (AUTO) 1 % (0-10); EOSINOPHILS % (AUTO) 18 % (0-10); HEMATOCRIT 35 % (35-52); HEMOGLOBIN 11.1 g/dL (11.5-16.0); LYMPHOCYTES # (AUTO) 2.6 10^3/uL (1.0-4.0); LYMPHOCYTES % (AUTO) 47 % (12-44); MEAN CORPUSCULAR HEMOGLOBIN 27 pg (25-34); MEAN CORPUSCULAR HGB CONC 32 g/dL (32-36); MEAN CORPUSCULAR VOLUME 85 fL (80-99); MEAN PLATELET VOLUME 9.8 fL (9.0-12.2); MONOCYTES # (AUTO) 0.3 10^3/uL (0.0-1.0); MONOCYTES % (AUTO) 6 % (0-12); NEUTROPHILS # (AUTO) 1.5 10^3/uL (1.8-7.8); NEUTROPHILS % (AUTO) 28 % (42-75); PLATELET COUNT 221 10^3/uL (130-400); WHITE BLOOD COUNT 5.6 10^3/uL (4.3-11.0)
[2022-04-06 05:04] LABS: POTASSIUM 3.3 MMOL/L (3.6-5.0)
[2022-04-06 05:05] LABS: CALCIUM 8.6 MG/DL (8.5-10.1)
[2022-04-06 05:10] LABS: CREATININE SERUM 0.86 MG/DL (0.60-1.30)
[2022-04-06 05:12] LABS: ANISOCYTOSIS SLIGHT; BAND NEUTROPHILS 0 %; ELLIPT/OVALOCYTES SLIGHT; EOSINOPHILS % (MANUAL) 10 %; LYMPHOCYTES % (MANUAL) 54 %; MAGNESIUM 1.9 MG/DL (1.6-2.4); MONOCYTES % (MANUAL) 6 %; NEUTROPHILS % (MANUAL) 28 %; POLYCHROMASIA SLIGHT; REACTIVE LYMPHOCYTES 2 %
--- NOTE | 2022-04-06 07:55 | Diagnostic Imaging Report ---
INDICATION: Dyspnea Frontal chest obtained at 4:00 hours a.m. and compared to yesterday. Heart and mediastinal silhouette are normal in appearance. The lungs are clear. There is no pneumothorax or pleural fluid. IMPRESSION: Negative chest. Dictated by: Dictated on workstation # [id number]
--- NOTE | 2022-04-06 08:17 | Consultation-Cardiology ---
HPI-Cardiology Cardiology Consultation: Date of Consultation 04/06/22 Date of Admission Attending Physician Sabrina Arnold MD Admitting Physician August Lindquist MD Consulting Physician ARMEN GEORGE QBY-Pjmabh-Choeoh Hx Patient Social History Smoking Status: Never a Smoker 2nd Hand Smoke Exposure: No Have you traveled recently?: No Alcohol Use?: No Pt feels they are or have been: No Immunizations Up To Date Tetanus Booster (TDap): More than 5yrs Date of Pneumonia Vaccine: Dec 30, 2015 Past Medical History PMH As described under Assessment. Family Medical History Family Medical History: She reports her mother and father both had CAD. She reports her mother had an MS at around age 40. Family History: Cardiovascular disease FH: breast cancer 19 MOTHER (METS) FH: lung cancer 19 FATHER FHx: mental retardation G8 BROTHER Myocardial infarction 19 FATHER (X2) Allergies and Home Medications Allergies Coded Allergies: morphine (Verified Allergy, Unknown, 04/27/17) Patient Home Medication List Acetaminophen (Tylenol Extra Strength) 500 Mg Tablet, 500-1,000 MG PO Q8H PRN for PAIN-MILD (1-4), (Reported) Entered as Reported by: ELIS FRANKLIN on 04/06/22 1038 Last Action: Reviewed Amitriptyline HCl (Amitriptyline HCl) 25 Mg Tablet, 25 MG PO HS, (Reported) Entered as Reported by: ELIS FRANKLIN on 04/06/22 1038 Last Action: Reviewed Aspirin (Aspirin EC) 81 Mg Tablet.dr, 81 MG PO DAILY Prescribed by: SABRINA ARNOLD on 04/06/22 1052 Cephalexin (Cephalexin) 500 Mg Tablet, 500 MG PO BID Prescribed by: SABRINA ARNOLD on 04/06/22 1052 Metoprolol Tartrate (Metoprolol Tartrate) 50 Mg Tablet, 50 MG PO BID Prescribed by: SABRINA ARNOLD on 04/06/22 1052 Nitroglycerin (Nitroglycerin) 0.4 Mg Tab.subl, 0 MG SL UD PRN for CHEST PAIN (ANGINA) Prescribed by: SABRINA ARNOLD on 04/06/22 1052 Paroxetine HCl (Paroxetine HCl) 40 Mg Tablet, 40 MG PO DAILY, (Reported) Entered as Reported by: ELIS FRANKLIN on 02/27/22 1433 Last Action: Reviewed Physical Exam-Cardiology Physical Exam Vital Signs/I&O Capillary Refill : Less Than 3 Seconds Data Review Labs Radiology NAME: [facility] REC#: [id number] PT STATUS: ADM Kirsten : 1970 PHYSICIAN: VASILE SARMIENTO DO ADMIT DATE: 04/05/22/ICU Signed Date of Exam:04/05/22 CT ANGIO CHEST W PROCEDURE: CT angiography of the chest with contrast. TECHNIQUE: Multiple contiguous axial images were obtained through the chest after uneventful bolus administration of intravenous contrast. 3D reconstructed CTA MIP acquisitions were also performed. Auto Exposure Controls were utilized during the CT exam to meet ALARA standards for radiation dose reduction. INDICATION: Chest pain and dyspnea. COMPARISON: 02/16/2021 There is good opacification of pulmonary arteries without intraluminal filling defect identified. Thoracic aorta is of normal caliber. There is improved aeration of both lungs without evidence of consolidation. No significant pleural or pericardial fluid is identified. There is no pathologically enlarged adenopathy in the chest. IMPRESSION: No CTA evidence of pulmonary embolism or other acute abnormality of the pneumothorax. Dictated by: Dictated on workstation # [id number] Dict: 04/05/22 1518 Trans: 04/05/22 165 CVB [id number] Interpreted by: RAMA DIAZ MD Electronically signed by: RAMA DIAZ MD 04/05/22 1653 NAME: JC [facility] REC#: [id number] PT STATUS: ADM Kirsten : 1970 PHYSICIAN: SABRINA ARNOLD MD ADMIT DATE: 04/05/22/ICU Draft Date of Exam:04/06/22 CHEST 1 VIEW, AP/PA ONLY INDICATION: Dyspnea Frontal chest obtained at 4:00 hours a.m. and compared to yesterday. Heart and mediastinal silhouette are normal in appearance. The lungs are clear. There is no pneumothorax or pleural fluid. IMPRESSION: Negative chest. Dictated on workstation # [id number] Dict: 04/06/22 0727 Trans: 04/06/22 0755 BHARAT [id number] Interpreted by: CHAYITO YOON MD Electronically signed by: A/P-Cardiology Assessment/Admission Diagnosis H/o chest discomfort - MPI of 05-10-21 showed no evidence of ischemia or infarction. LVEF 61% - Echocardiogram on 05-10-21 showed LVEF 60-65%. Grade 1 diastolic dysfunction. PASP 25-30 mmHg Palpitations: - Holter monitor of 04-04-[address] Michelle showed likely atrial tachycardia for 8-10 beats - ILR placement in January 2021 after an episode of seizure/syncope - no significant arrhythmia seen on ILR so far - last ILR transmission of 02-24-22 reviewed (no evidence of arrhythmia) ?TIA - recent admission of 02-26-22 Fatigue of undetermined etiology - managed by PCP Chronic knee pain - managed by her pcp Suspected sleep apnea (reports daytime fatigue and RLS) - refer to Dr. Barbour - unable to follow through d/t cost Clinical Quality Measures AMI/AHF: ASA po Prior to arrival: ARMEN Squires April 06, 2022 08:17
--- NOTE | 2022-04-06 08:57 | Consultation-Cardiology ---
HPI-Cardiology Cardiology Consultation: Date of Consultation 04/06/22 Time Seen by a Provider: 08:40 Date of Admission Attending Physician Anjali Finch MD Admitting Physician August Lindquist MD Consulting Physician YAZ WEEKS MD, MA, FACP, FACC, FSCAI, CCDS HPI: Chief Complaint: Chest discomfort 51 yo woman admitted through ER yesterday for symptoms of a rapid heart beat, feeling of chest discomfort (transthoracic, mod to severe, nonradiating, associated with a feeling of shortness of breath, w/o aggravating or relieving factors, self-resolving over the course of several hours). Also, she felt she may pass out if she stood up and walked. All these symptoms gradually resolved over a few hours. Has had such symptoms in the past, as well. No n/v/d Review of Systems-Cardiology Review of Systems Constitutional: malaise; No weight loss, No weight gain Eyes: No vision change Ears/Nose/Throat: No ear discharge, No nasal drainage, No recent hearing loss Respiratory: As described under HPI Cardiovascular: As described under HPI Gastrointestinal: No diarrhea, No nausea, No vomiting Genitourinary: No dysuria, No hematuria, No urine frequency changes Musculoskeletal: No back pain, No joint pain Skin: No rash, No ulcerations Psychiatric/Neurological: No seizure, No focal weakness, No syncope Hematologic: No bleeding abnormalities [id number] Hx Patient Social History Smoking Status: Never a Smoker 2nd Hand Smoke Exposure: No Have you traveled recently?: No Alcohol Use?: No Pt feels they are or have been: No Immunizations Up To Date Tetanus Booster (TDap): More than 5yrs Date of Pneumonia Vaccine: Dec 30, 2015 Past Medical History PMH As described under Assessment. Family Medical History Family Medical History: She reports her mother and father both had CAD. She reports her mother had an TX at around age 40. Family History: Cardiovascular disease FH: breast cancer 19 MOTHER (METS) FH: lung cancer 19 FATHER FHx: mental retardation G8 BROTHER Myocardial infarction 19 FATHER (X2) Allergies and Home Medications Allergies Coded Allergies: morphine (Verified Allergy, Unknown, 04/27/17) Patient Home Medication List Home Medication List Reviewed: Yes Aspirin (Aspirin EC) 81 Mg Tablet., 81 MG PO DAILY Prescribed by: GERALDINE MÉNDEZ on 4/03/17 1717 Atorvastatin Calcium (Atorvastatin Calcium) 80 Mg Tablet, 80 MG PO HS Prescribed by: GERALDINE MÉNDEZ on 02/27/221716 Clopidogrel Bisulfate (Clopidogrel) 75 Mg Tablet, 75 MG PO DAILY Prescribed by: GERALDINE MÉNDEZ on 02/27/221716 Cyclobenzaprine HCl (Cyclobenzaprine HCl) 10 Mg Tablet, 10 MG PO HS PRN for MUSCLE SPASMS, (Reported) Entered as Reported by: ELIS FRANKLIN on 02/27/22 143 Lisinopril (Lisinopril) 10 Mg Tablet, 10 MG PO DAILY, (Reported) Entered as Reported by: ELIS FRANKLIN on 02/27/22 143 Metoprolol Tartrate (Metoprolol Tartrate) 25 Mg Tablet, 25 MG PO BID Prescribed by: GERALDINE MÉNDEZ on 02/27/221716 Paroxetine HCl (Paroxetine HCl) 40 Mg Tablet, 40 MG PO DAILY, (Reported) Entered as Reported by: ELIS FRANKLIN on 02/27/221432 Physical Exam-Cardiology Physical Exam Vital Signs/I&O 04/06/22 04/06/22 04/06/22 04/06/22 00:00 00:00 01:00 01:00 Pulse 93 86 86 Resp 13 15 B/P (MAP) 133/76 (95) 144/94 (111) Pulse Ox 96 98 96 O2 Delivery Room Air Room Air Room Air 04/06/22 04/06/22 04/06/22 04/06/22 02:00 03:00 04:00 04:00 Pulse 88 112 90 Resp 20 20 14 B/P (MAP) 148/92 (110) 107/76 (86) 135/84 (101) Pulse Ox 96 100 96 96 O2 Delivery Room Air Room Air Room Air Room Air 04/06/22 04/06/22 04/06/22 04/06/22 04:13 05:00 06:00 07:00 Temp 36.1 Pulse 84 88 96 Resp 22 20 B/P (MAP) 106/80 (89) Pulse Ox 94 100 O2 Delivery Room Air Room Air 04/06/22 08:00 Temp 36.2 04/06/22 00:00 Intake Total 1644 ml Balance 1644 ml Capillary Refill : Less Than 3 Seconds Constitutional: AAO x 3, well-developed, well-nourished HEENT: EOMI, hearing is well preserved; No xanthelasmas are seen Neck: No carotid bruit; carotid pulses are 2 + bilaterally, with good upstrokes Respiratory: No accessory muscle use; other (good, bilateral air entry) Cardiovascular: regular rate-rhythm, S1 and S2, systolic murmur (faint HARINDER at card base) Gastrointestinal: No tender; soft; No guarding, No rebound; audible bowel sounds Extremities: No clubbing, No cyanosis, No significant edema Neurologic/Psychiatric: oriented x 3, other (moves all limbs equally) Skin: No rash on exposed areas, No ulcerations on exposed areas Data Review Labs Laboratory Tests 04/05/22 14:00: White Blood Count 6.0, Red Blood Count 4.68, Hemoglobin 12.9, Hematocrit 39, Mean Corpuscular Volume 83, Mean Corpuscular Hemoglobin 28, Mean Corpuscular Hemoglobin Concent 33, Red Cell Distribution Width 15.5H, Platelet Count 275, Mean Platelet Volume 10.1, Immature Granulocyte % (Auto) 0, Neutrophils (%) (Auto) 36L, Lymphocytes (%) (Auto) 48H, Monocytes (%) (Auto) 6, Eosinophils (%) (Auto) 10, Basophils (%) (Auto) 1, Neutrophils # (Auto) 2.2, Lymphocytes # (Auto) 2.9, Monocytes # (Auto) 0.4, Eosinophils # (Auto) 0.6H, Basophils # (Auto) 0.0, Immature Granulocyte # (Auto) 0.0, Prothrombin Time 13.6, INR Comment 1.0, Activated Partial Thromboplast Time 26, D-Dimer 0.66H, Sodium Level 142, Potassium Level 3.0L, Chloride Level 107, Carbon Dioxide Level 21, Anion Gap 14, Blood Urea Nitrogen 17, Creatinine 1.02, Estimat Glomerular Filtration Rate 67, BUN/Creatinine Ratio 17, Glucose Level 128H, Calcium Level 9.7, Corrected Calcium 9.5, Magnesium Level 2.0, Total Bilirubin 0.5, Aspartate Amino Transf (AST/SGOT) 41H, Alanine Aminotransferase (ALT/SGPT) 27, Alkaline Phosphatase 103, Total Creatine Kinase 377H, Creatine Kinase MB 4.8, Myoglobin 185.7H, Troponin I < 0.028, B-Type Natriuretic Peptide < 10.0, Total Protein 7.6, Albumin 4.2, Amylase Level 106, Lipase 34, TSH [place] Testing 2.27, Serum Test, Qualitative NEGATIVE, Serum Alcohol < 10 04/05/22 16:10: Urine Color REDH, Urine Clarity SL CLOUDY, Urine pH 5.0, Urine Specific [place] 1.010L, Urine Protein 3+H, Urine Glucose (UA) NEGATIVE, Urine Ketones TRACEH, Urine Nitrite POSITIVEH, Urine Bilirubin NEGATIVE, Urine Urobilinogen 1.0, Urine Leukocyte Esterase 1+H, Urine RBC (Auto) 3+H, Urine RBC TNTCH, Urine WBC RARE, Urine Squamous Epithelial Cells NONE, Urine Crystals NONE, Urine Bacteria NEGAT DEDE, Urine Casts NONE, Urine Mucus NEGATIVE, Urine Culture Indicated NO, Urine Opiates Screen NEGATIVE, Urine Oxycodone Screen NEGATIVE, Urine Methadone Screen NEGATIVE, Urine Propoxyphene Screen NEGATIVE, Urine Barbiturates Screen NEGATIVE, Ur Tricyclic Antidepressants Screen POSITIVEH, Urine Phencyclidine Screen NEGATIVE, Urine Amphetamines Screen NEGATIVE, Urine Methamphetamines Screen NEGATIVE, Urine Benzodiazepines Screen NEGATIVE, Urine Cocaine Screen NEGATIVE, Urine Cannabinoids Screen NEGATIVE 04/05/22 18:00: Troponin I < 0.028 04/05/22 20:50: Troponin I < 0.028 04/06/22 04:35: White Blood Count 5.6, Red Blood Count 4.06, Hemoglobin 11.1L, Hematocrit 35, Mean Corpuscular Volume 85, Mean Corpuscular Hemoglobin 27, Mean Corpuscular Hemoglobin Concent 32, Red Cell Distribution Width 15.6H, Platelet Count 221, Mean Platelet Volume 9.8, Immature Granulocyte % (Auto) 0, Neutrophils (%) (Auto) 28L, Lymphocytes (%) (Auto) 47H, Monocytes (%) (Auto) 6, Eosinophils (%) (Auto) 18H, Basophils (%) (Auto) 1, Neutrophils # (Auto) 1.5L, Lymphocytes # (Auto) 2.6, Monocytes # (Auto) 0.3, Eosinophils # (Auto) 1.0H, Basophils # (Auto) 0.0, Immature Granulocyte # (Auto) 0.0, Neutrophils % (Manual) 28, Lymphocytes % (Manual) 54, Monocytes % (Manual) 6, Eosinophils % (Manual) 10, Band Neutrophils 0, Reactive Lymphocytes 2, Polychromasia SLIGHT, Anisocytosis SLIGHT, Elliptocytes SLIGHT, Sodium Level 140, Potassium Level 3.3L, Chloride Level 107, Carbon Dioxide Level 22, Anion Gap 11, Blood Urea Nitrogen 12, Creatinine 0.86, Estimat Glomerular Filtration Rate 82, BUN/Creatinine Ratio 14, Glucose Level 104, Calcium Level 8.6, Phosphorus Level 3.0, Magnesium Level 1.9, Triglycerides Level 98, Cholesterol Level 109, LDL Cholesterol Direct 67, VLDL Cholesterol 20, HDL Cholesterol 24L Laboratory Tests 04/05/22 14:00 04/06/22 04:35 A/P-Cardiology Assessment/Admission Diagnosis Chest discomfort and palpitations on 04/05/22 - only sinus tach seen, now resolved - no evidence of ac TX (serial cardiac enzymes normal) - no evidence of PE or aortic dissection (CT angio on 04/05/22) H/o chest discomfort - MPI of 05-10-21 showed no evidence of ischemia or infarction. LVEF 61% - Echocardiogram on 05-10-21 showed LVEF 60-65%. Grade 1 diastolic dysfunction. PASP 25-30 mmHg H/o palpitations: - Holter monitor of 04-04-[address] Michelle showed likely atrial tachycardia for 8-10 beats - ILR placement in January 2021 after an episode of seizure/syncope - no significant arrhythmia seen on ILR so far ?TIA - recent admission of 02-26-22 - managed by pcp Fatigue of undetermined etiology - managed by PCP Chronic knee pain - managed by her pcp Suspected sleep apnea (reports daytime fatigue and RLS) - advised sleep studies but she has not followed through Discussion and Recomendations * Replenish K * Avoid any diuretics * Increase metoprolol tartrate to 50 mg po bid * D/c lisinopril to provide more room on blood pressure * Continue antiplatelet therapy, given vague h/o TIA * We recommend that she be evaluated by her pcp for noncardiac causes of sinus tach * Outpt cardiac f/u advised Clinical Quality Measures AMI/AHF: ASA po Prior to arrival: YAZ Gross MD FACP FAC CCDS April 06, 2022 08:57
[2022-04-06] MEDS ORDERED: ASPIRIN E.C. 81 MG (ECOTRIN) TAB PO SCH (09:00)
[2022-04-06] MEDS ORDERED: KCL 20 MEQ TAB (K-DUR) PO NR (09:15)
[2022-04-06] MEDS ORDERED: meTOprolol TARTRATE 50 MG (LOPRESSOR) TAB PO NR (09:45)
[2022-04-06] MEDS ORDERED: ACET-2267 PO (10:38)
[2022-04-06] MEDS ORDERED: AMIT25TA9 PO (10:38)
--- NOTE | 2022-04-06 10:49 | Short Stay Summary ---
HPI History of Present Illness: 51 yo F with more frequent episodes of palpitations and chest tightness. Patient was found to have sinus tachycardia. Negative cardiac workup in ER. Patient states that it has been happening for the last few weeks but was becoming more frequent and stronger. Denies any chest pain, left arm pain or shortness of breath. States that she would feel her heart racing and then would feel like she was going to pass out. She denies any syncopal episodes. Denies any recent infections but does state that she was having some diarrhea in the last few days which was new for her. Denies any pain. No fever or chills. Denies any DM or HTN. No new meds recently. States that she has taken her meds as prescribed and has not missed any doses. Source: patient Exam Limitations: no limitations Date seen by provider: April 06, 2022 Time Seen by Provider: 10:00 Attending Physician Sabrina Arnold MD PCP Renetta Carpio MD Consult Date of Admission April 05, 2022 at 16:01 Home Medications Home Medications Reviewed patient Home Medication Reconciliation performed by pharmacy medication reconciliations echocardiograph technician and/or nursing. Patients Allergies have been reviewed. Allergies Coded Allergies: morphine (Verified Allergy, Unknown, 04/27/17) [id number] Hx Patient Social History Living Status: lives with , independent with all ADLs Drug of Choice: DENIES Smoking Status: Never a Smoker 2nd Hand Smoke Exposure: No Recent Hopitalizations: Yes (JANUARY 2021) Alcohol Use?: No Have you traveled recently?: No Immunizations Up To Date Tetanus Booster (TDap): More than 5yrs Past Medical History Past Medical History 1. Hypertension- not filling her medications regularly, not been evaluated in the clinic since 2012. Currently hypotensive 2. Depression 3. PT. self reports history of CVA although per MRI and multiple CT's no evidence of any old infarct. 4. Chronic neck and back pain with scoliosis 5. Carotid Duplex 2010 with no plaque noted Past Surgical History 1. [place] teeth Family Medical History Significant Family History: Heart Disease, Cancer Family History: Cardiovascular disease FH: breast cancer 19 MOTHER (METS) FH: lung cancer 19 FATHER FHx: mental retardation G8 BROTHER Myocardial infarction 19 FATHER (X2) Review of Systems ([facility]) Constitutional: No chills; dizziness; No fever EENTM: no symptoms reported; No mouth pain, No nose congestion, No nose pain Respiratory: no symptoms reported; No cough, No dyspnea on exertion, No short of breath Cardiovascular: chest pain; No edema; palpitations Gastrointestinal: No abdominal pain, No constipation; diarrhea; No loss of appetite, No nausea, No vomiting Genitourinary: no symptoms reported; No dysuria, No frequency, No hematuria Musculoskeletal: no symptoms reported; No back pain, No joint pain, No muscle pain Skin: no symptoms reported Psychiatric/Neurological: No Symptoms Reported Reviewed Test Results Reviewed Test Results Lab Laboratory Tests Test 04/05/22 18:00 04/05/22 20:50 04/06/22 04:35 Range/Units Troponin I < 0.028 < 0.028 <0.028 NG/ML White Blood Count 5.6 4.3-11.0 10^3/uL Red Blood Count 4.06 3.80-5.11 10^6/uL Hemoglobin 11.1 L 11.5-16.0 g/dL Hematocrit 35 35-52 % Mean Corpuscular Volume 85 80-99 fL Mean Corpuscular Hemoglobin 27 25-34 pg Mean Corpuscular Hemoglobin Concent 32 32-36 g/dL Red Cell Distribution Width 15.6 H 10.0-14.5 % Platelet Count 221 130-400 10^3/uL Mean Platelet Volume 9.8 9.0-12.2 fL Immature Granulocyte % (Auto) 0 % Neutrophils (%) (Auto) 28 L 42-75 % Lymphocytes (%) (Auto) 47 H 12-44 % Monocytes (%) (Auto) 6 0-12 % Eosinophils (%) (Auto) 18 H 0-10 % Basophils (%) (Auto) 1 0-10 % Neutrophils # (Auto) 1.5 L 1.8-7.8 10^3/uL Lymphocytes # (Auto) 2.6 1.0-4.0 10^3/uL Monocytes # (Auto) 0.3 0.0-1.0 10^3/uL Eosinophils # (Auto) 1.0 H 0.0-0.3 10^3/uL Basophils # (Auto) 0.0 0.0-0.1 10^3/uL Immature Granulocyte # (Auto) 0.0 0.0-0.1 10^3/uL Neutrophils % (Manual) 28 % Lymphocytes % (Manual) 54 % Monocytes % (Manual) 6 % Eosinophils % (Manual) 10 % Band Neutrophils 0 % Reactive Lymphocytes 2 % Polychromasia SLIGHT Anisocytosis SLIGHT Elliptocytes SLIGHT Sodium Level 140 135-145 MMOL/L Potassium Level 3.3 L 3.6-5.0 MMOL/L Chloride Level 107 98-107 MMOL/L Carbon Dioxide Level 22 21-32 MMOL/L Anion Gap 11 5-14 MMOL/L Blood Urea Nitrogen 12 7-18 MG/DL Creatinine 0.86 0.60-1.30 MG/DL Estimat Glomerular Filtration Rate 82 BUN/Creatinine Ratio 14 Glucose Level 104 70-105 MG/DL Calcium Level 8.6 8.5-10.1 MG/DL Phosphorus Level 3.0 2.3-4.7 MG/DL Magnesium Level 1.9 1.6-2.4 MG/DL Triglycerides Level 98 <150 MG/DL Cholesterol Level 109 < 200 MG/DL LDL Cholesterol Direct 67 1-129 MG/DL VLDL Cholesterol 20 5-40 MG/DL HDL Cholesterol 24 L 40-60 MG/DL Radiology NAME: JC DUGAN [facility] REC#: [id number] PT STATUS: ADM Kirsten : 1970 PHYSICIAN: VASILE SARMIENTO DO ADMIT DATE: 04/05/22/ICU Signed Date of Exam:04/05/22 CT ANGIO CHEST W PROCEDURE: CT angiography of the chest with contrast. TECHNIQUE: Multiple contiguous axial images were obtained through the chest after uneventful bolus administration of intravenous contrast. 3D reconstructed CTA MIP acquisitions were also performed. Auto Exposure Controls were utilized during the CT exam to meet ALARA standards for radiation dose reduction. INDICATION: Chest pain and dyspnea. COMPARISON: 02/16/2021 There is good opacification of pulmonary arteries without intraluminal filling defect identified. Thoracic aorta is of normal caliber. There is improved aeration of both lungs without evidence of consolidation. No significant pleural or pericardial fluid is identified. There is no pathologically enlarged adenopathy in the chest. IMPRESSION: No CTA evidence of pulmonary embolism or other acute abnormality of the pneumothorax. Dictated by: Dictated on workstation # [id number] Dict: 04/05/22 1518 Trans: 04/05/22 1653 [facility] [id number] Interpreted by: RAMA DIAZ MD Electronically signed by: RAMA DIAZ MD 04/05/22 1653 NAME: JC DUGAN [facility] REC#: [id number] PT STATUS: ADM Kirsten : 1970 PHYSICIAN: SABRINA ARNOLD MD ADMIT DATE: 04/05/22/ICU Draft Date of Exam:04/06/22 CHEST 1 VIEW, AP/PA ONLY INDICATION: Dyspnea Frontal chest obtained at 4:00 hours a.m. and compared to yesterday. Heart and mediastinal silhouette are normal in appearance. The lungs are clear. There is no pneumothorax or pleural fluid. IMPRESSION: Negative chest. Dictated on workstation # [id number] Dict: 04/06/2227 Trans: 04/06/22 0755 [facility] [id number] Interpreted by: CHAYITO YOON MD Electronically signed by: Physical Exam-([facility]) Physical Exam Vital Signs VS - Last 72 Hours, by Label 04/05/22 04/05/22 04/05/22 04/05/22 13:50 15:54 16:25 16:28 Temp 36.0 36.6 Pulse 146 108 121 118 Resp 14 18 B/P (MAP) 136/104 (115) 105/93 111/56 (74) Pulse Ox 100 95 97 O2 Delivery Room Air Room Air 04/05/22 04/05/22 04/05/22 04/05/22 16:30 16:33 16:45 17:00 Pulse 122 115 126 Resp 16 11 19 B/P (MAP) 114/100 (105) 121/72 (88) 111/82 (92) Pulse Ox 97 95 98 99 O2 Delivery Room Air Room Air Room Air Room Air 04/05/22 04/05/22 04/05/22 04/05/22 18:00 19:00 19:28 20:00 Temp 36.5 Pulse 124 110 110 112 Resp 20 16 B/P (MAP) 121/85 (97) 114/76 (89) 114/76 (89) Pulse Ox 99 97 100 O2 Delivery Room Air Room Air Room Air 04/05/22 04/06/22 04/06/22 04/06/22 20:00 00:00 00:00 01:00 Pulse 93 86 Resp 13 15 B/P (MAP) 133/76 (95) 144/94 (111) Pulse Ox 97 96 98 96 O2 Delivery Room Air Room Air Room Air Room Air 04/06/22 04/06/22 04/06/22 04/06/22 01:00 02:00 03:00 04:00 Pulse 86 88 112 90 Resp 20 20 14 B/P (MAP) 148/92 (110) 107/76 (86) 135/84 (101) Pulse Ox 96 100 96 O2 Delivery Room Air Room Air Room Air 04/06/22 04/06/22 04/06/22 04/06/22 04:00 04:13 05:00 06:00 Temp 36.1 Pulse 84 88 Resp 22 20 B/P (MAP) 106/80 (89) Pulse Ox 96 94 100 O2 Delivery Room Air Room Air Room Air 04/06/22 04/06/22 04/06/22 04/06/22 07:00 07:00 08:00 08:00 Temp 36.2 Pulse 81 96 98 Resp 18 7 B/P (MAP) 162/121 (135) 146/109 (121) Pulse Ox 98 100 O2 Delivery Room Air Room Air 04/06/22 09:00 Pulse 83 Resp 22 B/P (MAP) Pulse Ox 99 O2 Delivery Room Air Capillary Refill : Less Than 3 Seconds General Appearance: WD/WN, no apparent distress, obese HEENT: PERRL/EOMI Neck: non-tender, full range of motion Respiratory: chest non-tender, lungs clear, normal breath sounds, no respiratory distress, no accessory muscle use Cardiovascular: normal peripheral pulses, regular rate, rhythm, no edema, no murmur Gastrointestinal: normal bowel sounds, non tender, soft Back: no CVA tenderness, no vertebral tenderness Extremities: normal range of motion, non-tender, normal inspection, no pedal edema, no calf tenderness, normal capillary refill 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/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 as 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, no motor/sensory deficits, alert, normal mood/affect, oriented x 3 Skin: normal color, warm/dry Lymphatic: no adenopathy Short Stay Diagnosis Discharge Diagnosis-Short Stay Admission Diagnosis Sinus Tachycardia Atypical chest pain HTN BMI 35 Final Discharge Diagnosis See above Conclusion Plan See problem list Clinical Quality Measures AMI/AHF: ASA po Prior to arrival: No Copy Copies To 1: RENETTA CARPIO MD Assessment/Plan Assessment/Plan Admission Status: Observation (1) Sinus tachycardia Status: Acute Assessment & Plan: - Patient has loop recorder, Dr Jones evaluated patient and ok with patient going home, meds were adjusted (2) Atypical chest pain Status: Acute Assessment & Plan: - neg cardiac workup (3) HTN (hypertension) Status: Acute Assessment & Plan: - Lisinopril was d/godwin so that BB could be increased due to normotension SABRINA ARNOLD MD April 06, 2022 10:49
[2022-04-06] MEDS ORDERED: METO50TA15 PO (10:52)
[2022-04-06] MEDS ORDERED: ASPI-1238 PO (10:52)
[2022-04-06] MEDS ORDERED: NITR0.4T42 SL (10:52)
[2022-04-06] MEDS ORDERED: CEPH500T PO (10:52)
--- NOTE | 2022-04-06 10:52 | Discharge Summary ---
Discharge [facility] Reconcile Patient Problems Problems Reviewed?: Yes Discharge Medications New, Converted or Re-Newed RX: Transmitted to Pharmacy New Medications: Cephalexin (Cephalexin) 500 Mg Tablet 500 MG PO BID, #10 TAB Aspirin (Aspirin EC) 81 Mg Tablet.dr 81 MG PO DAILY, #30 TAB Metoprolol Tartrate (Metoprolol Tartrate) 50 Mg Tablet 50 MG PO BID, #60 TAB Nitroglycerin (Nitroglycerin) 0.4 Mg Tab.subl 0 MG SL UD PRN for CHEST PAIN (ANGINA), #5 TAB Continued Medications: Acetaminophen (Tylenol Extra Strength) 500 Mg Tablet 500-1000 MG PO Q8H PRN for PAIN-MILD (1-4), TAB Amitriptyline HCl (Amitriptyline HCl) 25 Mg Tablet 25 MG PO HS, TAB Paroxetine HCl (Paroxetine HCl) 40 Mg Tablet 40 MG PO DAILY, TAB Discontinued Medications: Lisinopril (Lisinopril) 10 Mg Tablet 10 MG PO DAILY, TAB Patient Instructions Goal/Follow Up Appt: f/u with pcp 1-[address] Lindquist Activity & Diet Discharge Diet: Cardiac Diet Activity as Tolerated: Yes SABRINA ARNOLD MD April 06, 2022 10:52
[2022-04-06] MEDS ORDERED: meTOprolol TARTRATE 50 MG (LOPRESSOR) TAB PO SCH (21:00)
== END 2022-04-06 10:49 | disposition home or self-care (01) ==
LOC: EDUNIT# 13:49 → ER 13:51 → ICU 16:01 → UNDOADMOB 16:01 → ICU 16:27 → UNDODISOB 04-06 11:26
PROVIDERS: ADMIT Family Medicine; ATTEND Family Medicine
DX: R00.0 Tachycardia, unspecified (principal); R07.89 Other chest pain; I10 Essential (primary) hypertension; G89.29 Other chronic pain; M25.569 Pain in unspecified knee; R49.8 Other voice and resonance disorders; Z68.35 Body mass index [BMI] 35.0-35.9, adult; Z79.899 Other long term (current) drug therapy; Z91.19 Patient's noncompliance with other medical treatment and regimen
CPT/HCPCS: 71045 ×2; 71275; 80048; 80053; 80061; 80306; 81000; 82150; 82550; 82553; 83690; 83735 ×2; 83874; 83880; 84100; 84443; 84484; 84703; 85007; 85025 ×2; 85027; 85379; 85610; 85730; 93005 ×2; 93041; 96361 ×3; 96374; 99284; G0378; G0480; 36415; 80320

== ENCOUNTER 2022-06-07 19:21 | Observation (INO) | payer SELFPAY ==
[~2022-06-07] VITALS: Ht 165.1 cm; Wt 100.7 kg
[~2022-06-07 19:21] MED LIST changes: +ACET-2267 PO; +AMIT25TA9 PO; +CEPH500T PO; +METO50TA15 PO; +NITR0.4T42 SL
[2022-06-07] MEDS ORDERED: ASPIRIN 81 MG CHEW (CHILDREN'S ASA) PO STA (19:43)
[2022-06-07] MEDS ORDERED: NITROGLYCERIN 0.4 MG SL TABS BTL 25'S SL STA (19:48)
--- NOTE | 2022-06-07 19:48 | ED Chest Pain ---
General Chief Complaint: Chest Pain Stated Complaint: ARM PAIN, SHOULDER PAIN, CHEST TIGHTNESS History of Present Illness Date Seen by Provider: Jun 07, 2022 Time Seen by Provider: 19:28 Initial Comments 52 year old female presents for chest pain, present for last hour. No hx of CAD, however she had Linq implanted by Dr. Jones in 2020 that showed no irregular heart rhythms. She denies nausea, headache or diaphoresis. Mainly complains of pain in her left shoulder, that has been present since February. The chest pain is not radiating to her shoulder, it is present daily and was occurring prior to the chest pain. She had TIA in February 2022 and since then feels like her mentation is slower and she gets confused easily. She answers questions appropriately. No history of diabetes, nonsmoker. She has nitro at home, but did not take any. Timing/Duration: 1 hour Severity/Quality: moderate (5-8/10) Location: substernal Radiation: no radiation Prior CP/Workup: other (Linq) ASA po SHOVEL ENGINEER: No NTG SL SHOVEL ENGINEER: No Associated Symptoms: No abdominal pain, No back pain, No diaphoresis, No edema, No fever/chills, No headache, No heartburn, No nausea/vomiting, No shortness of breath, No weakness (TOM MILLER) Allergies and Home Medications Allergies Coded Allergies: morphine (Verified Allergy, Unknown, 04/27/17) Patient Home Medication List Home Medication List Reviewed: Yes (TOM MILLER) Acetaminophen (Tylenol Extra Strength) 500 Mg Tablet, 500-1,000 MG PO Q8H PRN for PAIN-MILD (1-4), (Reported) Entered as Reported by: ELIS FRANKLIN on 04/06/22 1038 Amitriptyline HCl (Amitriptyline HCl) 25 Mg Tablet, 25 MG PO HS, (Reported) Entered as Reported by: ELIS FRANKLIN on 04/06/22 1038 Aspirin (Aspirin EC) 81 Mg Tablet., 81 MG PO DAILY Prescribed by: SABRINA ARNOLD on 04/06/22 1052 Cephalexin (Cephalexin) 500 Mg Tablet, 500 MG PO BID Prescribed by: SABRINA ARNOLD on 04/06/22 105 Metoprolol Tartrate (Metoprolol Tartrate) 50 Mg Tablet, 50 MG PO BID Prescribed by: SABRINA ARNOLD on 04/06/22 1052 Nitroglycerin (Nitroglycerin) 0.4 Mg Tab.subl, 0 MG SL UD PRN for CHEST PAIN (ANGINA) Prescribed by: SABRINA ARNOLD on 04/06/22 1052 Paroxetine HCl (Paroxetine HCl) 40 Mg Tablet, 40 MG PO DAILY, (Reported) Entered as Reported by: ELIS FRANKLIN on 02/27/22 1433 Review of Systems Review of Systems Constitutional: no symptoms reported, see HPI Cardiovascular: See HPI, Chest Pain Gastrointestinal: No Symptoms Reported, See HPI Musculoskeletal: see HPI, joint pain (left shoulder) (TOM MILLER) All Other Systems Reviewed Negative Unless Noted: Yes (TOM MILLER) Past Epwgjjm-Lyydap-Thqioe Hx Immunizations Up To Date Tetanus Booster (TDap): More than 5yrs PED Vaccines UTD: Yes (TOM MILLER) Seasonal Allergies Seasonal Allergies: No (TOM MILLER) Past Medical History Surgery/Hospitalization HX: IRREGULAR HR, TIA Surgeries: Yes (WISDOM TEETH) Respiratory: Yes Pneumonia Cardiac: Yes (TACHYCARDIA; LOOP RECORDER PLACED IN 2020 AFTER SYNCOPE VS SEIZURE) High Cholesterol, Hypertension, Irregular Heartbeat, Syncope Neurological: Yes Concussion, Headaches /Migraines, Seizure Disorder, Stroke 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 Disorders: No 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 Disorders: Denies 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 Sexually Transmitted Disease: No Genitourinary: No Gastrointestinal: No Musculoskeletal: Yes (CHRONIC NECK PAIN; CHRONIC RIGHT KNEE PAIN/TORN MENISCUS PER MRI 01/26/21) Degenerate Disk Disease, Scoliosis, Chronic Back Pain Endocrine: No HEENT: No Cancer: No Psychosocial: Yes Anxiety, Depression Integumentary: No Blood Disorders: No (TOM MILLER) Family Medical History Reviewed Nursing Family Hx (TOM MILLER) Cardiovascular disease FH: breast cancer 19 MOTHER (METS) FH: lung cancer 19 FATHER FHx: mental retardation G8 BROTHER Myocardial infarction 19 FATHER (X2) Heart Disease, Cancer (TOM MILLER) Physical Exam Vital Signs Vital Signs - First Documented 06/07/22 19:26 Temp 35.1 Pulse 91 Resp 16 B/P (MAP) 141/78 (99) O2 Delivery Room Air (USMAN MISTRY MD) Vital Signs Capillary Refill : (ANGELA,TOM POSTMASTER) Height, Weight, BMI Height: 5'6.00" Weight: 180lbs. 5.0oz. 81.351052jq; 35.64 BMI Method:Stated General Appearance: No Apparent Distress, WD/WN HEENT: PERRL/EOMI, TMs Normal, Normal ENT Inspection Neck: Full Range of Motion, Normal Inspection, Non Tender, Supple Respiratory: Chest Non Tender, Lungs Clear, Normal Breath Sounds Cardiovascular: Regular Rate, Rhythm, No Edema, No Murmur, Normal Peripheral Pulses Extremity: Normal Capillary Refill, Normal Inspection, Normal Range of Motion, Non Tender, No Calf Tenderness Neurologic/Psychiatric: Alert, Oriented x3, No Motor/Sensory Deficits, Normal Mood/Affect Skin: Normal Color, Warm/Dry (TOM MILLER) Progress/Results/Core Measures Results/Orders Lab Results Laboratory Tests Test 06/07/22 19:43 Range/Units White Blood Count 6.8 4.3-11.0 10^3/uL Red Blood Count 4.08 3.80-5.11 10^6/uL Hemoglobin 10.4 L 11.5-16.0 g/dL Hematocrit 33 L 35-52 % Mean Corpuscular Volume 82 80-99 fL Mean Corpuscular Hemoglobin 26 25-34 pg Mean Corpuscular Hemoglobin Concent 31 L 32-36 g/dL Red Cell Distribution Width 15.1 H 10.0-14.5 % Platelet Count 282 130-400 10^3/uL Mean Platelet Volume 10.0 9.0-12.2 fL Immature Granulocyte % (Auto) 0 % Neutrophils (%) (Auto) 44 42-75 % Lymphocytes (%) (Auto) 42 12-44 % Monocytes (%) (Auto) 6 0-12 % Eosinophils (%) (Auto) 7 0-10 % Basophils (%) (Auto) 1 0-10 % Neutrophils # (Auto) 3.0 1.8-7.8 10^3/uL Lymphocytes # (Auto) 2.8 1.0-4.0 10^3/uL Monocytes # (Auto) 0.4 0.0-1.0 10^3/uL Eosinophils # (Auto) 0.5 H 0.0-0.3 10^3/uL Basophils # (Auto) 0.1 0.0-0.1 10^3/uL Immature Granulocyte # (Auto) 0.0 0.0-0.1 10^3/uL Prothrombin Time 12.8 12.2-14.7 SEC INR Comment 0.9 0.8-1.4 Activated Partial Thromboplast Time 26 24-35 SEC Sodium Level 140 135-145 MMOL/L Potassium Level 3.6 3.6-5.0 MMOL/L Chloride Level 104 98-107 MMOL/L Carbon Dioxide Level 23 21-32 MMOL/L Anion Gap 13 5-14 MMOL/L Blood Urea Nitrogen 12 7-18 MG/DL Creatinine 0.87 0.60-1.30 MG/DL Estimat Glomerular Filtration Rate 81 BUN/Creatinine Ratio 14 Glucose Level 115 H 70-105 MG/DL Calcium Level 9.5 8.5-10.1 MG/DL Corrected Calcium 9.5 8.5-10.1 MG/DL Magnesium Level 1.9 1.6-2.4 MG/DL Total Bilirubin 0.4 0.1-1.0 MG/DL Aspartate Amino Transf (AST/SGOT) 26 5-34 U/L Alanine Aminotransferase (ALT/SGPT) 23 0-55 U/L Alkaline Phosphatase 103 40-136 U/L Myoglobin 37.7 10.0-92.0 NG/ML Troponin I < 0.028 <0.028 NG/ML B-Type Natriuretic Peptide 13.8 <100.0 PG/ML Total Protein 7.1 6.4-8.2 GM/DL Albumin 4.0 3.2-4.5 GM/DL (USMAN MISTRY MD) Vital Signs/I&O 06/07/22 19:26 Temp 35.1 Pulse 91 Resp 16 B/P (MAP) 141/78 (99) O2 Delivery Room Air (USMAN MISTRY MD) Progress Progress Note : Time: 19:28 Progress Note Patient seen and evaluated, will obtain labs, EKG, chest x-ray. Aspirin 324 mg and Nitro 1 tab, repeat up to 3. 1950 pain decreased after 1 nitro, will hold any additional Nitro. 2044 patient denies chest gasca, continues to have mild left shoulder pain. EKG showed no ST elevation, troponin negative. [address] Jones, recommended admission for observation. Tramadol 50 mg for left shoulder pain. Discussed with patient, after discharge see Dr. Huerter about shoulder pain and get referral to Trina Salas NP. [address] Salinas agreeable to admit patient. She denies chest pain at this time. (TOM MILLER) Initial ECG Impression Date: Jun 07, 2022 Initial ECG Impression Time: 19:39 Initial ECG Rate: 82 Initial ECG Rhythm: Normal Sinus Initial ECG Intervals: Normal Initial ECG Intervals [place] 163, QRS 78, QT 361, QTc 400. [place] P 44, RR -4, T 38. No ST elevation noted. Initial ECG Impression: Normal Initial ECG Comparisson: Unchanged EKG : EKG Time: 21:06 Rate: 77 Rhythm: Normal Sinus Intervals: Normal, [place] (158), QRS (73) ECG Comparisson: Unchanged ECG Impression: Normal Comment EKG at 1938 did not transmit from machine to system, second EKG was performed at 2105. No change in EKG. (TOM MILLER) Diagnostic Imaging Diagonstic Imaging: Xray Plain Films/CT/US/NM/MRI: chest Comments NAME: JC DUGAN [facility] REC#: [id number] PT STATUS: REG ER : 1970 PHYSICIAN: TOM MILLER ADMIT DATE: 06/07/22/ER Signed Date of Exam:06/07/22 CHEST 1 VIEW, AP/PA ONLY EXAMINATION: Chest 1 view. HISTORY: Chest pain. COMPARISON: 04/06/2022. FINDINGS: The lung volumes are normal. No focal consolidation is seen. No large pleural effusion or pneumothorax is seen. The cardiomediastinal silhouette is normal in size and contour. Loop recorder is seen overlying the cardiac silhouette. No acute osseous abnormality is seen. IMPRESSION: No acute pleuroparenchymal process. Dictated by: Dictated on workstation # [id number] Dict: 06/07/222000 Trans: 06/07/222005 PJE [id number] Interpreted by: YANET CARMONA DO Electronically signed by: YANET CARMONA DO 06/07/222005 Reviewed: Reviewed by Me (TOM MILLER) Departure Impression Primary Impression: Chest pain Qualified Codes: R07.9 - Chest pain, unspecified Additional Impressions: Left shoulder pain Qualified Codes: M25.512 - Pain in left shoulder Angina pectoris Disposition: ADMITTED INPATIENT Condition: Stable Admissions Decision to Admit/Date: Jun 07, 2022 Time/Decision to Admit Time: 20:45 (TOM MILLER) Departure-Patient Inst. Referrals: RENETTA CARPIO MD (PCP/Family) Primary Care Physician ATTENDING PHYSICIAN NOTE: I was physically present as attending physician in the emergency department during the care of this patient, but I was not directly involved in the decision making or delivery of care for this patient. (USMAN MISTRY MD) Copy Copies To 1: YAZ JONES MD FACP LOCATED WITHIN [facility] CCDS Copies To 2: RENETTA CARPIO MD, AMY ARNP Jun 07, 2022 19:48 USMAN MISTRY MD Jun 08, 2022 04:58
[2022-06-07 19:50] LABS: BASOPHILS # (AUTO) 0.1 10^3/uL (0.0-0.1); BASOPHILS % (AUTO) 1 % (0-10); EOSINOPHILS # (AUTO) 0.5 10^3/uL (0.0-0.3); EOSINOPHILS % (AUTO) 7 % (0-10); HEMATOCRIT 33 % (35-52); HEMOGLOBIN 10.4 g/dL (11.5-16.0); LYMPHOCYTES # (AUTO) 2.8 10^3/uL (1.0-4.0); LYMPHOCYTES % (AUTO) 42 % (12-44); MEAN CORPUSCULAR HEMOGLOBIN 26 pg (25-34); MEAN CORPUSCULAR HGB CONC 31 g/dL (32-36); MEAN CORPUSCULAR VOLUME 82 fL (80-99); MONOCYTES # (AUTO) 0.4 10^3/uL (0.0-1.0); MONOCYTES % (AUTO) 6 % (0-12); NEUTROPHILS % (AUTO) 44 % (42-75); PLATELET COUNT 282 10^3/uL (130-400); WHITE BLOOD COUNT 6.8 10^3/uL (4.3-11.0)
[2022-06-07 20:05] LABS: INR 0.9 (0.8-1.4); POTASSIUM 3.6 MMOL/L (3.6-5.0); PROTHROMBIN TIME PATIENT 12.8 SEC (12.2-14.7)
--- NOTE | 2022-06-07 20:05 | Diagnostic Imaging Report ---
EXAMINATION: Chest 1 view. HISTORY: Chest pain. COMPARISON: 04/06/2022. FINDINGS: The lung volumes are normal. No focal consolidation is seen. No large pleural effusion or pneumothorax is seen. The cardiomediastinal silhouette is normal in size and contour. Loop recorder is seen overlying the cardiac silhouette. No acute osseous abnormality is seen. IMPRESSION: No acute pleuroparenchymal process. Dictated by: Dictated on workstation # [id number]
[2022-06-07 20:06] LABS: CALCIUM 9.5 MG/DL (8.5-10.1)
[2022-06-07 20:07] LABS: TOTAL PROTEIN 7.1 GM/DL (6.4-8.2)
[2022-06-07 20:09] LABS: BILIRUBIN,TOTAL 0.4 MG/DL (0.1-1.0)
[2022-06-07 20:11] LABS: CREATININE SERUM 0.87 MG/DL (0.60-1.30)
[2022-06-07 20:13] LABS: MAGNESIUM 1.9 MG/DL (1.6-2.4)
[2022-06-07] MEDS ORDERED: NITROGLYCERIN 0.4 MG SL TABS BTL 25'S SL PRN (22:45)
[2022-06-07] MEDS ORDERED: diphenhydrAMINE 25 MG TAB (BENADRYL) PO PRN (22:45)
[2022-06-07] MEDS ORDERED: ONDANSETRON 4 MG (ZOFRAN) ORAL DISSOLVE TAB PO PRN (22:45)
[2022-06-07] MEDS ORDERED: diphenhydrAMINE 50 MG/ML INJ (BENADRYL) IVP PRN (22:45)
[2022-06-07] MEDS ORDERED: ACETAMINOPHEN 325 MG TABLET PO PRN (22:45)
[2022-06-07] MEDS ORDERED: BISACODYL 10 MG SUPP (DULCOLAX) PR PRN (22:45)
[2022-06-07] MEDS ORDERED: ONDANSETRON 4 MG/2 ML (SDV) Z0FRAN IV PRN (22:45)
[2022-06-07] MEDS ORDERED: LACTULOSE SYRUP 10GM/15ML (ENULOSE) 30ML UDC PO PRN (22:45)
[2022-06-07] MEDS ORDERED: MELATONIN 3 MG TABLET PO PRN (22:45)
[2022-06-07] MEDS ORDERED: ANTACID SUSP 30 ML UDC (MYLANTA) PO PRN (22:45)
[2022-06-07] MEDS ORDERED: MILK OF MAGNESIA 400 MG/5 ML 30 ML UDC PO PRN (22:45)
[2022-06-07] MEDS ORDERED: PATIENT MAY USE OWN MEDS, ALL PO SCH (22:45)
[2022-06-07] MEDS ORDERED: CALCIUM CARBONATE 500 MG (TUMS) TAB.CHEW PO PRN (22:45)
[2022-06-07] MEDS ORDERED: NALOXONE 0.4 MG/ML 1 ML (NARCAN) VIAL IV PRN (22:45)
[2022-06-07] MEDS ORDERED: ENOXAPARIN 40 MG/0.4 ML (LOVENOX) SYR SC SCH (22:45)
[2022-06-07] MEDS ORDERED: polyethylene glycoL POWDER 17 GM (MIRALAX) PACK PO PRN (22:45)
[2022-06-07 22:49] VITALS: BP 160/96
[2022-06-07 22:56] VITALS: BP 141/78
[2022-06-07] MEDS ORDERED: RT-ALBUTEROL SULF 2.5 MG/3 ML PRE-MIX VIAL INH PRN (23:00)
[2022-06-07 23:15] VITALS: BP 147/95
[2022-06-07 23:30] VITALS: BP 145/90
[2022-06-07 23:45] VITALS: BP 145/85
[2022-06-08] VITALS (7 sets, daily range): BP systolic 138–179; BP diastolic 75–107
[2022-06-08] MEDS ORDERED: amLODIPine 5 MG (NORVASC) TAB ONE (02:10)
[2022-06-08] MEDS ORDERED: cloNIDine 0.1 MG (CATAPRES) TAB PO PRN (02:15)
[2022-06-08] MEDS ORDERED: amLODIPine 5 MG (NORVASC) TAB PO ONE (02:15)
[2022-06-08 05:34] LABS: BASOPHILS # (AUTO) 0.1 10^3/uL (0.0-0.1); BASOPHILS % (AUTO) 1 % (0-10); EOSINOPHILS # (AUTO) 0.4 10^3/uL (0.0-0.3); EOSINOPHILS % (AUTO) 7 % (0-10); HEMATOCRIT 35 % (35-52); HEMOGLOBIN 10.6 g/dL (11.5-16.0); LYMPHOCYTES # (AUTO) 2.9 10^3/uL (1.0-4.0); LYMPHOCYTES % (AUTO) 46 % (12-44); MEAN CORPUSCULAR HEMOGLOBIN 26 pg (25-34); MEAN CORPUSCULAR HGB CONC 30 g/dL (32-36); MEAN CORPUSCULAR VOLUME 85 fL (80-99); MONOCYTES # (AUTO) 0.5 10^3/uL (0.0-1.0); MONOCYTES % (AUTO) 7 % (0-12); NEUTROPHILS # (AUTO) 2.5 10^3/uL (1.8-7.8); NEUTROPHILS % (AUTO) 39 % (42-75); PLATELET COUNT 286 10^3/uL (130-400); WHITE BLOOD COUNT 6.4 10^3/uL (4.3-11.0)
[2022-06-08 05:49] LABS: ALBUMIN 3.8 GM/DL (3.2-4.5); CHLORIDE 104 MMOL/L (98-107); POTASSIUM 3.6 MMOL/L (3.6-5.0); SODIUM 139 MMOL/L (135-145)
[2022-06-08 05:50] LABS: CALCIUM 9.6 MG/DL (8.5-10.1)
[2022-06-08 05:51] LABS: GLUCOSE 96 MG/DL (70-105); TRIGLYCERIDES 666 MG/DL (<150); VLDL CHOLESTEROL 133 MG/DL (5-40)
[2022-06-08 05:52] LABS: CARBON DIOXIDE 21 MMOL/L (21-32)
[2022-06-08 05:53] LABS: BILIRUBIN,TOTAL 0.3 MG/DL (0.1-1.0)
[2022-06-08 05:55] LABS: ALKALINE PHOSPHATASE 96 U/L (40-136); CREATININE SERUM 0.78 MG/DL (0.60-1.30); GFR ESTIMATED 92
[2022-06-08 05:56] LABS: BUN/CREATININE RATIO 17; CHOLESTEROL 203 MG/DL (< 200)
[2022-06-08 05:57] LABS: HDL CHOLESTEROL 27 MG/DL (40-60)
[2022-06-08 05:58] LABS: ALANINE AMINOTRANSFERASE 22 U/L (0-55)
--- NOTE | 2022-06-08 07:55 | Consultation-Cardiology ---
HPI-Cardiology Cardiology Consultation: Date of Consultation 06/08/22 Time Seen by a Provider: 09:00 Date of Admission 06-07-22 Attending Physician August Lindquist MD Admitting Physician Admitting Physician: Eileen Salinas DO Attending Physician: Eileen Salinas DO Consulting Physician Angy Jones MD HPI: Chief Complaint: Uncontrolled HTN Ms. Montano is a 52 yr old female admitted to [facility] from the ED with c/o uncontrolled HTN for several days at home despite being compliant with her medications. She reports left shoulder, arm discomfort which has been present since her CVA in February and is unchanged. She denies any c/o CP, palpitations, syncope or near syncope. She does report dizziness at times at home. She reports a feeling of fever and night sweats at home. No c/o LE swelling. Review of Systems-Cardiology All Other Systems Reviewed Negative Unless Noted: Yes NMS-Ospcen-Uypnye Hx Patient Social History Smoking Status: Never a Smoker 2nd Hand Smoke Exposure: No Have you traveled recently?: No Alcohol Use?: No Pt feels they are or have been: No Immunizations Up To Date Tetanus Booster (TDap): More than 5yrs Date of Pneumonia Vaccine: Dec 30, 2015 Past Medical History PMH As described under Assessment. Family Medical History Family Medical History: She reports her mother and father both had CAD. She reports her mother had an IA at around age 40. Family History: Cardiovascular disease FH: breast cancer 19 MOTHER (METS) FH: lung cancer 19 FATHER FHx: mental retardation G8 BROTHER Myocardial infarction 19 FATHER (X2) Allergies and Home Medications Allergies Coded Allergies: morphine (Verified Allergy, Unknown, 04/27/17) Patient Home Medication List Acetaminophen (Tylenol Extra Strength) 500 Mg Tablet, 500-1,000 MG PO Q8H PRN for PAIN-MILD (1-4), (Reported) Entered as Reported by: ELIS FRANKLIN on 04/06/22 1038 Amitriptyline HCl (Amitriptyline HCl) 25 Mg Tablet, 25 MG PO HS, (Reported) Entered as Reported by: ELIS FRANKLIN on 04/06/22 1038 Aspirin (Aspirin EC) 81 Mg Tablet.dr, 81 MG PO DAILY Prescribed by: SABRINA ARNOLD on 04/06/22 1052 Cephalexin (Cephalexin) 500 Mg Tablet, 500 MG PO BID Prescribed by: SABRINA ARNOLD on 04/06/22 1052 Metoprolol Tartrate (Metoprolol Tartrate) 50 Mg Tablet, 50 MG PO BID Prescribed by: SABRINA ARNOLD on 04/06/22 1052 Nitroglycerin (Nitroglycerin) 0.4 Mg Tab.subl, 0 MG SL UD PRN for CHEST PAIN (ANGINA) Prescribed by: SABRINA ARNOLD on 04/06/22 1052 Paroxetine HCl (Paroxetine HCl) 40 Mg Tablet, 40 MG PO DAILY, (Reported) Entered as Reported by: ELIS FRANKLIN on 02/27/22 1433 Physical Exam-Cardiology Physical Exam Vital Signs/I&O 06/07/22 06/07/22 06/07/22 06/07/22 22:30 22:45 22:49 22:56 Temp 35.1 36.4 35.1 Pulse 84 76 91 Resp 16 20 B/P (MAP) 138/94 160/96 (117) Pulse Ox 97 98 97 97 O2 Delivery Room Air Room Air FiO2 21 06/07/22 06/07/22 06/07/22 06/07/22 23:02 23:15 23:30 23:45 Temp 36.4 36.7 36.6 Pulse 82 76 78 76 Resp 15 17 15 B/P (MAP) 147/95 (112) 145/90 (108) 145/85 (105) Pulse Ox 95 95 95 O2 Delivery Room Air Room Air Room Air 06/08/22 06/08/22 06/08/22 06/08/22 00:00 00:00 01:00 01:08 Temp 36.6 Pulse 74 74 96 76 Resp 16 16 14 B/P (MAP) 148/88 (108) 148/88 (108) 138/75 (96) Pulse Ox 95 95 97 O2 Delivery Room Air Room Air Room Air 06/08/22 06/08/22 06/08/22 06/08/22 01:57 02:57 03:42 07:00 Temp 36.9 Pulse 87 83 85 82 Resp 15 16 16 B/P (MAP) 179/107 (131) 174/98 (123) 154/93 (113) Pulse Ox 98 98 97 O2 Delivery Room Air Room Air Room Air 06/08/22 08:23 Temp 36.7 Pulse 87 Resp 18 B/P (MAP) 154/100 (118) Pulse Ox 99 O2 Delivery Room Air Capillary Refill : Data Review Labs Laboratory Tests 06/07/22 19:43: White Blood Count 6.8, Red Blood Count 4.08, Hemoglobin 10.4L, Hematocrit 33L, Mean Corpuscular Volume 82, Mean Corpuscular Hemoglobin 26, Mean Corpuscular Hemoglobin Concent 31L, Red Cell Distribution Width 15.1H, Platelet Count 282, Mean Platelet Volume 10.0, Immature Granulocyte % (Auto) 0, Neutrophils (%) (Auto) 44, Lymphocytes (%) (Auto) 42, Monocytes (%) (Auto) 6, Eosinophils (%) (Auto) 7, Basophils (%) (Auto) 1, Neutrophils # (Auto) 3.0, Lymphocytes # (Auto) 2.8, Monocytes # (Auto) 0.4, Eosinophils # (Auto) 0.5H, Basophils # (Auto) 0.1, Immature Granulocyte # (Auto) 0.0, Prothrombin Time 12.8, INR Comment 0.9, Activated Partial Thromboplast Time 26, Sodium Level 140, Potassium Level 3.6, Chloride Level 104, Carbon Dioxide Level 23, Anion Gap 13, Blood Urea Nitrogen 12, Creatinine 0.87, Estimat Glomerular Filtration Rate 81, BUN/Creatinine Ratio 14, Glucose Level 115H, Calcium Level 9.5, Corrected Calcium 9.5, Magnesium Level 1.9, Total Bilirubin 0.4, Aspartate Amino Transf (AST/SGOT) 26, Alanine Aminotransferase (ALT/SGPT) 23, Alkaline Phosphatase 103, Myoglobin 37.7, Troponin I < 0.028, B-Type Natriuretic Peptide 13.8, Total Protein 7.1, Albumin 4.0 06/08/22 01:07: Troponin I < 0.028 06/08/22 05:14: White Blood Count 6.4, Red Blood Count 4.15, Hemoglobin 10.6L, Hematocrit 35, Mean Corpuscular Volume 85, Mean Corpuscular Hemoglobin 26, Mean Corpuscular Hemoglobin Concent 30L, Red Cell Distribution Width 15.4H, Platelet Count 286, Mean Platelet Volume 11.0, Immature Granulocyte % (Auto) 0, Neutrophils (%) (Auto) 39L, Lymphocytes (%) (Auto) 46H, Monocytes (%) (Auto) 7, Eosinophils (%) (Auto) 7, Basophils (%) (Auto) 1, Neutrophils # (Auto) 2.5, Lymphocytes # (Auto) 2.9, Monocytes # (Auto) 0.5, Eosinophils # (Auto) 0.4H, Basophils # (Auto) 0.1, Immature Granulocyte # (Auto) 0.0, Sodium Level 139, Potassium Level 3.6, Chloride Level 104, Carbon Dioxide Level 21, Anion Gap 14, Blood Urea Nitrogen 13, Creatinine 0.78, Estimat Glomerular Filtration Rate 92, BUN/Creatinine Ratio 17, Glucose Level 96, Calcium Level 9.6, Corrected Calcium 9.8, Total Bilirubin 0.3, Aspartate Amino Transf (AST/SGOT) 26, Alanine Aminotransferase (ALT/SGPT) 22, Alkaline Phosphatase 96, Troponin I < 0.028, Total Protein 7.0, Albumin 3.8, Triglycerides Level 666H, Cholesterol Level 203H, LDL Cholesterol Direct 86, VLDL Cholesterol 133H, HDL Cholesterol 27L Radiology NAME: JC MONTANO [facility] REC#: [id number] PT STATUS: REG ER : 1970 PHYSICIAN: TOM MILLER ADMIT DATE: 06/07/22/ER Signed Date of Exam:06/07/22 CHEST 1 VIEW, AP/PA ONLY EXAMINATION: Chest 1 view. HISTORY: Chest pain. COMPARISON: 04/06/2022. FINDINGS: The lung volumes are normal. No focal consolidation is seen. No large pleural effusion or pneumothorax is seen. The cardiomediastinal silhouette is normal in size and contour. Loop recorder is seen overlying the cardiac silhouette. No acute osseous abnormality is seen. IMPRESSION: No acute pleuroparenchymal process. Dictated by: Dictated on workstation # [id number] Dict: 06/07/222000 Trans: 06/07/222005 PJE [id number] Interpreted by: YANET CARMONA DO Electronically signed by: YANET CARMONA DO 06/07/222005 A/P-Cardiology Assessment/Admission Diagnosis Chest discomfort - No evidence of ACS - MPI of 05-10-21 showed no evidence of ischemia or infarction. LVEF 61% - Echocardiogram on 05-10-21 showed LVEF 60-65%. Grade 1 diastolic dysfunction. PASP 25-30 mmHg Palpitations: - Holter monitor of 04-04-[address] Michelle showed likely atrial tachycardia for 8-10 beats - ILR placement in January 2021 after an episode of seizure/syncope - no significant arrhthmia seen on ILR so far ?TIA vs CVA with reported left sided weakness/arm discomfort/numbness - recent admission of 02-26-22 - Carotid u/s at [facility] showed: Normal proximal internal carotid arteries. Patent vertebral arteries with antegrade flow. HLD - start statin tx Fatigue of undetermined etiology - managed by PCP Chronic knee pain - managed by her pcp Suspected sleep apnea (reports daytime fatigue and RLS) - refer to Dr. Barbour - unable to follow through d/t cost Discussion and Recomendations Non-specific left arm/chest discomfort - no evidence of ACS Uncontrolled HTN - continue home dose of Toprol/Lisinopril and addition of Norvasc to regimen HLD - start statin tx Monitor lab - replace electrolytes as indicated We would like to thank medical services for this consult Further recs will be based on her hospital course Clinical Quality Measures AMI/AHF: ASA po Prior to arrival: ARMEN Squires [facility] Jun 08, 2022 07:55
[2022-06-08] MEDS ORDERED: SENNOSIDES 8.6 MG (SENOKOT) TAB PO SCH (09:00)
[2022-06-08] MEDS ORDERED: DOCUSATE SODIUM 100 MG (COLACE) CAP PO SCH (09:00)
[2022-06-08] MEDS ORDERED: ASPIRIN E.C. 81 MG (ECOTRIN) TAB PO SCH (09:00)
[2022-06-08] MEDS ORDERED: meTOprolol SUCCINATE 100 MG (TOPROL XL) TAB PO ONE (09:30)
[2022-06-08] MEDS ORDERED: lisINopril 10 MG (PRINIVIL) TABLET PO ONE (09:30)
[2022-06-08] MEDS ORDERED: METO50TA15 PO (10:11)
[2022-06-08] MEDS ORDERED: ASPI-1238 PO (10:11)
[2022-06-08] MEDS ORDERED: NAPR220T66 PO (10:11)
[2022-06-08] MEDS ORDERED: NITR0.4T39 SL (10:11)
[2022-06-08] MEDS ORDERED: IBUP-2185 PO (10:11)
--- NOTE | 2022-06-08 11:06 | Short Stay Summary-Hospitalist ---
History of Present Illness HPI/Chief Complaint CC: Chest pain HPI: This is a 52 yr old female with known CAD. She presented to the ER with chest pain and was admitted. Pt was placed on protocol. All troponins were negative. Dr. Jones saw her and intiaited quite a few BP medications. She will be discharged in improved condition. Source: patient, family, RN/MD, old records Date Seen 06/08/22 Time Seen by a Provider: 10:00 Attending Physician August Lindquist MD PCP Admitting Physician: Eileen Salinas DO Attending Physician: Eileen Salinas DO Referring Physician Date of Admission Jun 07, 2022 at 21:30 Home Medications & Allergies Home Medications Reviewed patient Home Medication Reconciliation performed by pharmacy medication reconciliations film technician and/or nursing. Patients Allergies have been reviewed. Allergies Allergies Coded Allergies morphine (Verified Allergy, Unknown, 04/27/17) Past Zkpuhmj-Uwbkqi-Bwdheb Hx Patient Social History Marrital Status: Employed/Student: unemployed Tobacco Use?: No Smoking Status: Never a Smoker Smokeless Tobacco Frequency: Never a User Use of E-Cig and/or Vaping dev: No Substance use?: No Alcohol Use?: No Pt feels they are or have been: No Immunizations Up To Date Tetanus Booster (TDap): More Than 5 Years Hepatitis A: No Hepatitis B: No PED Vaccines UTD: Yes Date of Pneumonia Vaccine: Dec 30, 2015 Seasonal Allergies Seasonal Allergies: No Current Status status: No status: No Advance Directives: No Communicates: Verbally Primary Language: Niuean Preferred Spoken Language: Niuean Is interpretation needed?: No Additional sensory deficits: REPORTS MEMORY PROBLEMS Implanted or Applied Medical D: Other Past Medical History Pneumonia High Cholesterol, Hypertension, Irregular Heartbeat, Syncope Concussion, Headaches /Migraines, Seizure Disorder, Stroke 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 Hypertension- not filling her medications regularly, not been evaluated in the clinic since 2012. Currently hypotensive 2. Depression 3. PT. self reports history of CVA although per MRI and multiple CT's no evidence of any old infarct. 4. Chronic neck and back pain with scoliosis 5. Carotid Duplex 2010 with no plaque noted Past Surgical History 1. [place] teeth Family Medical History Reviewed Nursing Family Hx Cardiovascular disease FH: breast cancer 19 MOTHER (METS) FH: lung cancer 19 FATHER FHx: mental retardation G8 BROTHER Myocardial infarction 19 FATHER (X2) Heart Disease, Cancer Review of Systems Constitutional: see HPI Cardiovascular: chest pain Physical Exam Physical Exam Vital Signs Vital Signs - First Documented 06/07/22 06/07/22 06/07/22 06/08/22 19:26 22:30 22:56 10:55 Temp 35.1 Pulse 91 Resp 16 B/P (MAP) 141/78 (99) Pulse Ox 97 O2 Delivery Room Air O2 Flow Rate 0.00 FiO2 21 Capillary Refill : Height, Weight, BMI Height: 5'6.00" Weight: 180lbs. 5.0oz. 81.879904it; 36.94 BMI Method:Stated General Appearance: No Apparent Distress, WD/WN HEENT: PERRL/EOMI, TMs Normal, Normal ENT Inspection Neck: Full Range of Motion, Normal Inspection, Non Tender, Supple Respiratory: Chest Non Tender, Lungs Clear, Normal Breath Sounds Cardiovascular: Regular Rate, Rhythm, No Edema, No Murmur, Normal Peripheral Pulses Extremity: Normal Capillary Refill, Normal Inspection, Normal Range of Motion, Non Tender, No Calf Tenderness Neurologic/Psychiatric: Alert, Oriented x3, No Motor/Sensory Deficits, Normal Mood/Affect Skin: Normal Color, Warm/Dry Results Results/Procedures Labs Laboratory Tests 06/07/22 19:43 06/08/22 05:14 Patient resulted labs reviewed. Short Stay Diagnosis Discharge Diagnosis-Short Stay Admission Diagnosis Atypical CP Final Discharge Diagnosis Atypical chest pain w/o evidence of ACS HTN OOC Conclusion Plan Add BP meds DC home Diagnosis/Problems Diagnosis/Problems (1) Chest pain Status: Acute Qualifiers: Qualified Codes: R07.9 - Chest pain, unspecified (2) Hypertension Status: Acute Clinical Quality Measures AMI/AHF: ASA po Prior to arrival: EILEEN Bowling DO Jun 08, 2022 11:06
[2022-06-08] MEDS ORDERED: ROSU20TA32 PO (11:27)
[2022-06-08] MEDS ORDERED: MTP100TCR PO (11:27)
[2022-06-08] MEDS ORDERED: AMLO-250 PO (11:27)
[2022-06-08] MEDS ORDERED: TRM50T PO (11:28)
[2022-06-08] MEDS ORDERED: LISI10TA25 PO (11:28)
--- NOTE | 2022-06-08 12:36 | Consultation-Cardiology ---
HPI-Cardiology Cardiology Consultation: Date of Consultation 06/08/22 Time Seen by a Provider: 09:45 Date of Admission Attending Physician August Lindquist MD Admitting Physician Admitting Physician: Eileen Méndez DO Attending Physician: Eileen Méndez DO Consulting Physician YAZ WEEKS MD, MA, FACP, FACC, FSCAI, CCDS HPI: Chief Complaint: Uncontrolled HTN Ms. Montano is a 52 yr old female admitted to [facility] from the ED with c/o uncontrolled HTN for several days at home despite being compliant with her medications. She reports left shoulder, arm discomfort which has been present since her CVA in February and is unchanged. She denies any c/o CP, palpitations, syncope or near syncope. She does report dizziness at times at home. She reports a feeling of fever and night sweats at home. No c/o LE swelling. Review of Systems-Cardiology All Other Systems Reviewed Negative Unless Noted: Yes IWA-[id number]-Zfhoop Hx Patient Social History Smoking Status: Never a Smoker 2nd Hand Smoke Exposure: No Have you traveled recently?: No Alcohol Use?: No Pt feels they are or have been: No Immunizations Up To Date Tetanus Booster (TDap): More than 5yrs Date of Pneumonia Vaccine: Dec 30, 2015 Past Medical History PMH As described under Assessment. Family Medical History Family Medical History: She reports her mother and father both had CAD. She reports her mother had an [place] at around age 40. Family History: Cardiovascular disease FH: breast cancer 19 MOTHER (METS) FH: lung cancer 19 FATHER FHx: mental retardation G8 BROTHER Myocardial infarction 19 FATHER (X2) Allergies and Home Medications Allergies Coded Allergies: morphine (Verified Allergy, Unknown, 04/27/17) Patient Home Medication List Home Medication List Reviewed: Yes Amitriptyline HCl (Amitriptyline HCl) 25 Mg Tablet, 25 MG PO HS, (Reported) Entered as Reported by: ELIS FRANKLIN on 04/06/22 1038 Last Action: Reviewed Amlodipine Besylate (Amlodipine Besylate) 5 Mg Tablet, 5 MG PO DAILY Prescribed by: EILEEN MÉNDEZ on 06/08/22 1127 Aspirin (Aspirin EC) 81 Mg Tablet.dr, 81 MG PO DAILY, (Reported) Entered as Reported by: ELIS FRANKLIN on 06/08/22 1011 Last Action: Reviewed Lisinopril (Lisinopril) 10 Mg Tablet, 10 MG PO DAILY Prescribed by: EILEEN MÉNDEZ on 06/08/22 1128 Metoprolol Succinate (Metoprolol Succinate) 100 Mg Tab.er.24h, 100 MG PO DAILY Prescribed by: EILEEN MÉNDEZ on 06/08/22 1127 Nitroglycerin (Nitroglycerin) 0.4 Mg Tab.subl, 0.4 MG SL UD PRN for CHEST PAIN, (Reported) Entered as Reported by: ELIS FRANKLIN on 06/08/22 1011 Last Action: Reviewed Paroxetine HCl (Paroxetine HCl) 40 Mg Tablet, 40 MG PO DAILY, (Reported) Entered as Reported by: ELIS FRANKLIN on 02/27/22 1433 Last Action: Reviewed Rosuvastatin Calcium (Rosuvastatin Calcium) 20 Mg Tablet, 20 MG PO HS Prescribed by: EILEEN MÉNDEZ on 06/08/22 1127 Tramadol HCl (Tramadol HCl) 50 Mg Tablet, 50 MG PO TID PRN for PAIN-MODERATE (5- 7) Prescribed by: EILEEN MÉNDEZ on 06/08/22 1128 Discontinued Medications Acetaminophen (Tylenol Extra Strength) 500 Mg Tablet, 500-1,000 MG PO Q8H PRN for PAIN-MILD (1-4), (Reported) Discontinued Reason: No Longer Taking Entered as Reported by: ELIS FRANKLIN on 04/06/22 1038 Last Action: Discontinued Aspirin (Aspirin EC) 81 Mg Tablet.dr, 81 MG PO DAILY Discontinued Reason: No Longer Taking Prescribed by: SABRINA ARNOLD on 04/06/22 1052 Last Action: Discontinued Cephalexin (Cephalexin) 500 Mg Tablet, 500 MG PO BID Discontinued Reason: No Longer Taking Prescribed by: SABRINA ARNOLD on 04/06/22 1052 Last Action: Discontinued Ibuprofen (Ibuprofen) 200 Mg Capsule, 400 MG PO Q8H PRN for PAIN-MILD (1-4), (Reported) Entered as Reported by: ELIS FRANKLIN on 06/08/22 1011 Last Action: Reviewed Metoprolol Tartrate (Metoprolol Tartrate) 50 Mg Tablet, 50 MG PO BID Discontinued Reason: No Longer Taking Prescribed by: SABRINA ARNOLD on 04/06/22 1052 Last Action: Discontinued Metoprolol Tartrate (Metoprolol Tartrate) 50 Mg Tablet, 50 MG PO BID, (Reported) Entered as Reported by: ELIS FRANKLIN on 06/08/22 1011 Last Action: Reviewed Naproxen Sodium (Aleve) 220 Mg Tablet, 220-440 MG PO BID PRN for PAIN-MILD (1- 4), (Reported) Entered as Reported by: ELIS FRANKLIN on 06/08/22 1011 Last Action: Reviewed Nitroglycerin (Nitroglycerin) 0.4 Mg Tab.subl, 0 MG SL UD PRN for CHEST PAIN (ANGINA) Discontinued Reason: No Longer Taking Prescribed by: SABRINA ARNOLD on 04/06/22 1052 Last Action: Discontinued Physical Exam-Cardiology Physical Exam Vital Signs/I&O 06/08/22 06/08/22 06/08/22 06/08/22 01:00 01:08 01:57 02:57 Pulse 96 76 87 83 Resp 14 15 16 B/P (MAP) 138/75 (96) 179/107 (131) 174/98 (123) Pulse Ox 97 98 98 O2 Delivery Room Air Room Air Room Air 06/08/22 06/08/22 06/08/22 06/08/22 03:42 07:00 08:23 09:00 Temp 36.9 36.7 Pulse 85 82 87 Resp 16 18 B/P (MAP) 154/93 (113) 154/100 (118) Pulse Ox 97 99 98 O2 Delivery Room Air Room Air Room Air 06/08/22 06/08/22 10:55 11:49 Temp 37.3 Pulse 75 Resp 18 B/P (MAP) 157/89 (111) Pulse Ox 97 93 O2 Delivery Room Air Room Air O2 Flow Rate 0.00 Capillary Refill : Data Review Labs Laboratory Tests 06/07/22 19:43: White Blood Count 6.8, Red Blood Count 4.08, Hemoglobin 10.4L, Hematocrit 33L, Mean Corpuscular Volume 82, Mean Corpuscular Hemoglobin 26, Mean Corpuscular Hemoglobin Concent 31L, Red Cell Distribution Width 15.1H, Platelet Count 282, Mean Platelet Volume 10.0, Immature Granulocyte % (Auto) 0, Neutrophils (%) (Auto) 44, Lymphocytes (%) (Auto) 42, Monocytes (%) (Auto) 6, Eosinophils (%) (Auto) 7, Basophils (%) (Auto) 1, Neutrophils # (Auto) 3.0, Lymphocytes # (Auto) 2.8, Monocytes # (Auto) 0.4, Eosinophils # (Auto) 0.5H, Basophils # (Auto) 0.1, Immature Granulocyte # (Auto) 0.0, Prothrombin Time 12.8, INR Comment 0.9, Activated Partial Thromboplast Time 26, Sodium Level 140, Potassium Level 3.6, Chloride Level 104, Carbon Dioxide Level 23, Anion Gap 13, Blood Urea Nitrogen 12, Creatinine 0.87, Estimat Glomerular Filtration Rate 81, BUN/Creatinine Ratio 14, Glucose Level 115H, Calcium Level 9.5, Corrected Calcium 9.5, Magnesium Level 1.9, Total Bilirubin 0.4, Aspartate Amino Transf (AST/SGOT) 26, Alanine Aminotransferase (ALT/SGPT) 23, Alkaline Phosphatase 103, Myoglobin 37.7, Troponin I < 0.028, B-Type Natriuretic Peptide 13.8, Total Protein 7.1, Albumin 4.0 06/08/22 01:07: Troponin I < 0.028 06/08/22 05:14: White Blood Count 6.4, Red Blood Count 4.15, Hemoglobin 10.6L, Hematocrit 35, Mean Corpuscular Volume 85, Mean Corpuscular Hemoglobin 26, Mean Corpuscular Hemoglobin Concent 30L, Red Cell Distribution Width 15.4H, Platelet Count 286, Mean Platelet Volume 11.0, Immature Granulocyte % (Auto) 0, Neutrophils (%) (Auto) 39L, Lymphocytes (%) (Auto) 46H, Monocytes (%) (Auto) 7, Eosinophils (%) (Auto) 7, Basophils (%) (Auto) 1, Neutrophils # (Auto) 2.5, Lymphocytes # (Auto) 2.9, Monocytes # (Auto) 0.5, Eosinophils # (Auto) 0.4H, Basophils # (Auto) 0.1, Immature Granulocyte # (Auto) 0.0, Sodium Level 139, Potassium Level 3.6, Chloride Level 104, Carbon Dioxide Level 21, Anion Gap 14, Blood Urea Nitrogen 13, Creatinine 0.78, Estimat Glomerular Filtration Rate 92, BUN/Creatinine Ratio 17, Glucose Level 96, Calcium Level 9.6, Corrected Calcium 9.8, Total Bilirubin 0.3, Aspartate Amino Transf (AST/SGOT) 26, Alanine Aminotransferase (ALT/SGPT) 22, Alkaline Phosphatase 96, Troponin I < 0.028, Total Protein 7.0, Albumin 3.8, Triglycerides Level 666H, Cholesterol Level 203H, LDL Cholesterol Direct 86, VLDL Cholesterol 133H, HDL Cholesterol 27L A/P-Cardiology Assessment/Admission Diagnosis Chest discomfort - No evidence of ACS - MPI of 05-10-21 showed no evidence of ischemia or infarction. LVEF 61% - Echocardiogram on 05-10-21 showed LVEF 60-65%. Grade 1 diastolic dysfunction. PASP 25-30 mmHg Hypertension - not well controlled Palpitations: - Holter monitor of 04-04-[address] Michelle showed likely atrial tachycardia for 8-10 beats - ILR placement in January 2021 after an episode of seizure/syncope - no significant arrhthmia seen on ILR so far ?TIA vs CVA with reported left sided weakness/arm discomfort/numbness - recent admission of 02-26-22 - Carotid u/s at [facility] showed: Normal proximal internal carotid arteries. Patent vertebral arteries with antegrade flow. HLD - start statin tx Fatigue of undetermined etiology - managed by PCP Chronic knee pain - managed by her pcp Suspected sleep apnea (reports daytime fatigue and RLS) - refer to Dr. Barbour - unable to follow through d/t cost Discussion and Recomendations Non-specific left arm/chest discomfort - no evidence of ACS Uncontrolled HTN - continue home dose of Toprol/Lisinopril and addition of Norvasc to regimen. Increase lisinopril to 40 daily - close outpt f/u HLD - start statin tx Monitor lab - replace electrolytes as indicated We would like to thank Medical services for this consult Further recs will be based on her hospital course Clinical Quality Measures AMI/AHF: ASA po Prior to arrival: YAZ Gross MD FACP FACC CCDS Jun 08, 2022 12:36
[2022-06-08] MEDS ORDERED: ROSUVASTATIN 20 MG (CRESTOR) TABLET PO SCH (21:00)
[2022-06-09] MEDS ORDERED: amLODIPine 5 MG (NORVASC) TAB PO SCH (09:00)
[2022-06-09] MEDS ORDERED: meTOprolol SUCCINATE 100 MG (TOPROL XL) TAB PO SCH (09:00)
[2022-06-09] MEDS ORDERED: lisINopril 10 MG (PRINIVIL) TABLET PO SCH (09:00)
== END 2022-06-08 12:40 | disposition home or self-care (01) ==
LOC: EDUNIT# 19:21 → ER 19:23 → 4TH 21:30
PROVIDERS: ADMIT Internal Medicine; ATTEND Internal Medicine
DX: R07.89 Other chest pain (principal); I10 Essential (primary) hypertension; M25.512 Pain in left shoulder; R00.2 Palpitations; E78.5 Hyperlipidemia, unspecified; R53.83 Other fatigue; Z79.82 Long term (current) use of aspirin; Z88.5 Allergy status to narcotic agent
CPT/HCPCS: 36415; 71045; 80053; 80061; 83735; 83874; 83880; 84484; 85025; 85610; 85730; 93005; 94760; 96372

== ENCOUNTER 2022-06-27 04:39 | Emergency (ER) | payer SELFPAY ==
[~2022-06-27] VITALS: Ht 172.7 cm; Wt 100.0 kg
[~2022-06-27 04:39] MED LIST changes: +AMLO-250 PO; +IBUP-2185 PO; +NAPR220T66 PO; +ROSU20TA32 PO
[2022-06-27 04:40] VITALS: BP 156/100
--- NOTE | 2022-06-27 05:01 | ED General ---
General Stated Complaint: AMS,POSS STROKE Source of Information: Old Records, Spouse Exam Limitations: Other (PT IS NOT ANSWERING QUESTIONS ON ARRIVAL) (VASILE SARMIENTO DO) History of Present Illness Date Seen by Provider: Jun 27, 2022 Time Seen by Provider: 04:43 Initial Comments PT ARRIVES VIA POV FROM HOME, WITH WHEELCHAIR ON ARRIVAL, BUT PT ABLE TO STAND AND TRANSFER SELF FROM WHEELCHAIR TO ER CART ON ARRIVAL, PT IS NOT TALKING OR FOLLOWING COMMANDS REPORTS THAT SHE WENT TO BED AROUND 1900 AND WAS FINE, SHE WOKE UP AROUND 0430 AND WENT TO THE BATHROOM, AND WHEN SHE CAME BACK HE SAYS SHE WAS "CONFUSED AND MUMBLING" AND "HAD TO DRAG HER TO THE CAR" ACCUCHECK 103 ON ARRIVAL STROKE ACTIVATION ON ARRIVAL. 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 ADMITTED 02/26/22 FOR TIA WITH COMPLETE RESOLUTION OF SYMPTOMS--HAD SAME SYMPTOMS TODAY--EPISODE OF DIFFICULTY SPEAKING AT THAT TIME. PT IS NOT TAKING ANY ASPIRIN OR BLOOD THINNERS DOES NOT KNOW IF SHE HAS MISSED ANY DOSES OF MEDICATIONS NO FEVER OR RECENT ILLNESS, PER PT IS NOT COVID OR FLU VACCINATED. PCP: DR. CARPIO (VASILE SARMIENTO DO) Allergies and Home Medications Allergies Coded Allergies: morphine (Verified Allergy, Unknown, 04/27/17) Patient Home Medication List Home Medication List Reviewed: Yes (SILKE LEWIS MD) Amitriptyline HCl (Amitriptyline HCl) 25 Mg Tablet, 25 MG PO HS, (Reported) Entered as Reported by: ELIS FRANKLIN on 04/06/22 1038 Amlodipine Besylate (Amlodipine Besylate) 5 Mg Tablet, 5 MG PO DAILY Prescribed by: GERALDINE MÉNDEZ on 06/08/22 1127 Aspirin (Aspirin EC) 81 Mg Tablet.dr, 81 MG PO DAILY, (Reported) Entered as Reported by: ELIS FRANKLIN on 06/08/22 1011 Lisinopril (Lisinopril) 10 Mg Tablet, 10 MG PO DAILY Prescribed by: GERALDINE MÉNDEZ on 06/08/22 1128 Metoprolol Succinate (Metoprolol Succinate) 100 Mg Tab.er.24h, 100 MG PO DAILY Prescribed by: GERALDINE MÉNDEZ on 06/08/22 1127 Nitroglycerin (Nitroglycerin) 0.4 Mg Tab.subl, 0.4 MG SL UD PRN for CHEST PAIN, (Reported) Entered as Reported by: ELIS FRANKLIN on 06/08/22 1011 Paroxetine HCl (Paroxetine HCl) 40 Mg Tablet, 40 MG PO DAILY, (Reported) Entered as Reported by: ELIS FRANKLIN on 02/27/22 1433 Rosuvastatin Calcium (Rosuvastatin Calcium) 20 Mg Tablet, 20 MG PO HS Prescribed by: GERALDINE MÉNDEZ on 06/08/22 1127 Tramadol HCl (Tramadol HCl) 50 Mg Tablet, 50 MG PO TID PRN for PAIN-MODERATE (5- 7) Prescribed by: GERALDINE MÉNDEZ on 06/08/22 1128 Review of Systems Review of Systems Constitutional: other (PT NOT TALKING ON ARRIVAL) (VASILE SARMIENTO DO) Past Lfeoqak-Vmukbp-Yjcfpd Hx Patient Social History Tobacco Use?: No Smoking Status: Never a Smoker Smokeless Tobacco Frequency: Never a User Substance use?: No Alcohol Use?: No (VASILE SARMIENTO DO) Immunizations Up To Date Tetanus Booster (TDap): More than 5yrs PED Vaccines UTD: Yes (VASILE SARMIENTO DO) Seasonal Allergies Seasonal Allergies: No (VASILE SARMIENTO DO) Past Medical History Surgery/Hospitalization HX: IRREGULAR HR, TIA Surgeries: Yes (WISDOM TEETH; LOOP RECORDER 01/2021) Respiratory: Yes Pneumonia Cardiac: Yes (TACHYCARDIA; LOOP RECORDER PLACED IN 2020 AFTER SYNCOPE VS SEIZURE) High Cholesterol, Hypertension, Irregular Heartbeat, Syncope Neurological: Yes (TIA 02/2022 WITH APHASIA-COMPLETE RESOLUTION) Concussion, Headaches /Migraines, Seizure Disorder, Stroke, TIA 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 Disorders: No 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 Sexually Transmitted Disease: No Genitourinary: No Gastrointestinal: No Musculoskeletal: Yes (CHRONIC NECK PAIN; CHRONIC RIGHT KNEE PAIN/TORN MENISCUS PER MRI 01/26/21) Degenerate Disk Disease, Scoliosis, Chronic Back Pain Endocrine: No HEENT: No Cancer: No Psychosocial: Yes Anxiety, Depression Integumentary: No Blood Disorders: No (VASILE SARMIENTO DO) Family Medical History Cardiovascular disease FH: breast cancer 19 MOTHER (METS) FH: lung cancer 19 FATHER FHx: mental retardation G8 BROTHER Myocardial infarction 19 FATHER (X2) Heart Disease, Cancer (VASILE SARMIENTO DO) Physical Exam Vital Signs Vital Signs - First Documented (SILKE LEWIS MD) Vital Signs Capillary Refill : (VASILE SARMIENTO DO) Height, Weight, BMI Height: 5'6.00" Weight: 180lbs. 5.0oz. 81.479526sz; 36.94 BMI Method:Stated General Appearance: No Apparent Distress, WD/WN, Obese HEENT: PERRL/EOMI, Normal ENT Inspection Neck: Full Range of Motion, Normal Inspection, Non Tender, Supple; No Carotid Bruit, No JVD Respiratory: Normal Breath Sounds, No Accessory Muscle Use, No Respiratory Distress Cardiovascular: Regular Rate, Rhythm, No Edema, No JVD, No Murmur, Normal Peripheral Pulses Gastrointestinal: Non Tender, Soft Back: No CVA Tenderness Extremity: Normal Capillary Refill, Normal Inspection, Normal Range of Motion, Non Tender, No Calf Tenderness, No Pedal Edema Neurologic/Psychiatric: Alert, No Motor/Sensory Deficits, 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 ); Aphasia; No EOM Palsy, No Facial Droop, No Motor Weakness, No Sensory Deficit; Other (ON ARRIVAL, PT MAKES EYE CONTACT, IS ALERT, BUT NOT TALKING OR FOLLOW COMMANDS, YET SHE IS ABLE TO TRANSFER SELF FROM WHEELCHAIR TO ER CART. THEN A FEW SECONDS LATER, PT HAS PURPOSEFUL MOVEMENTS--RAISES AND REACHES OUT HER ARM TO , WITH THE ARM THAT SHE JUST COULDN'T/WOULDN'T MOVE. ) Reflexes: 2+ Bicep (R), 2+ Bicep (L), 2+ Knee (R), 2+ Knee (L) Skin: Normal Color, Warm/Dry (VASILE SARMIENTO DO) Focused Exam Lactate Level 06/27/22 05:12: Lactic Acid Level 1.44 (SILKE LEWIS MD) Lactic Acid Level Laboratory Tests Test 06/27/22 05:12 Lactic Acid Level 1.44 MMOL/L (0.50-2.00) (SILKE LEWIS MD) Progress/Results/Core Measures Suspected Sepsis SIRS Temperature: Pulse: Respiratory Rate: Laboratory Tests 06/27/22 05:12: White Blood Count 6.4 Blood Pressure / Mean: 06/27/22 05:12: Lactic Acid Level 1.44 Laboratory Tests 06/27/22 05:12: Creatinine 0.84, INR Comment 0.9, Platelet Count 224, Total Bilirubin 0.4 (VASILE SARMIENTO DO) Results/Orders Lab Results Laboratory Tests Test 06/27/22 04:48 06/27/22 05:12 06/27/22 05:16 06/27/22 05:21 Range/Units Glucometer 108 70-110 MG/DL White Blood Count 6.4 4.3-11.0 10^3/uL Red Blood Count 4.23 3.80-5.11 10^6/uL Hemoglobin 10.7 L 11.5-16.0 g/dL Hematocrit 34 L 35-52 % Mean Corpuscular Volume 81 80-99 fL Mean Corpuscular Hemoglobin 25 25-34 pg Mean Corpuscular Hemoglobin Concent 31 L 32-36 g/dL Red Cell Distribution Width 15.9 H 10.0-14.5 % Platelet Count 224 130-400 10^3/uL Mean Platelet Volume 9.6 9.0-12.2 fL Immature Granulocyte % (Auto) 0 % Neutrophils (%) (Auto) 38 L 42-75 % Lymphocytes (%) (Auto) 45 H 12-44 % Monocytes (%) (Auto) 7 0-12 % Eosinophils (%) (Auto) 8 0-10 % Basophils (%) (Auto) 1 0-10 % Neutrophils # (Auto) 2.5 1.8-7.8 10^3/uL Lymphocytes # (Auto) 2.9 1.0-4.0 10^3/uL Monocytes # (Auto) 0.5 0.0-1.0 10^3/uL Eosinophils # (Auto) 0.5 H 0.0-0.3 10^3/uL Basophils # (Auto) 0.1 0.0-0.1 10^3/uL Immature Granulocyte # (Auto) 0.0 0.0-0.1 10^3/uL Erythrocyte Sedimentation Rate 34 H 0-30 MM/HR Prothrombin Time 13.0 12.2-14.7 SEC INR Comment 0.9 0.8-1.4 Activated Partial Thromboplast Time 27 24-35 SEC D-Dimer 0.47 0.00-0.49 UG/ML Sodium Level 141 135-145 MMOL/L Potassium Level 3.8 3.6-5.0 MMOL/L Chloride Level 106 98-107 MMOL/L Carbon Dioxide Level 23 21-32 MMOL/L Anion Gap 12 5-14 MMOL/L Blood Urea Nitrogen 14 7-18 MG/DL Creatinine 0.84 0.60-1.30 MG/DL Estimat Glomerular Filtration Rate 84 BUN/Creatinine Ratio 17 Glucose Level 115 H 70-105 MG/DL Lactic Acid Level 1.44 0.50-2.00 MMOL/L Calcium Level 9.5 8.5-10.1 MG/DL Corrected Calcium 9.5 8.5-10.1 MG/DL Magnesium Level 1.8 1.6-2.4 MG/DL Total Bilirubin 0.4 0.1-1.0 MG/DL Aspartate Amino Transf (AST/SGOT) 24 5-34 U/L Alanine Aminotransferase (ALT/SGPT) 25 0-55 U/L Alkaline Phosphatase 100 40-136 U/L Myoglobin 38.8 10.0-92.0 NG/ML Troponin I < 0.028 <0.028 NG/ML C-Reactive Protein High Sensitivity 0.35 0.00-0.50 MG/DL Total Protein 6.9 6.4-8.2 GM/DL Albumin 4.0 3.2-4.5 GM/DL TSH Davidson Testing 1.45 0.35-4.94 UIU/ML Serum Test, Qualitative NEGATIVE NEGATIVE Serum Alcohol < 10 <10 MG/DL Influenza Type A (RT-PCR) Not Detected Not Detecte Influenza Type B (RT-PCR) Not Detected Not Detecte SARS-CoV-2 RNA (RT-PCR) Not Detected Not Detecte Ammonia 24 11-32 UMOL/L Test 06/27/22 05:49 Range/Units Urine Color YELLOW Urine Clarity CLEAR Urine pH 6.0 5-9 Urine Specific [place] 1.025 H 1.016-1.022 Urine Protein NEGATIVE NEGATIVE Urine Glucose (UA) NEGATIVE NEGATIVE Urine Ketones NEGATIVE NEGATIVE Urine Nitrite NEGATIVE NEGATIVE Urine Bilirubin NEGATIVE NEGATIVE Urine Urobilinogen 0.2 < = 1.0 MG/DL Urine Leukocyte Esterase NEGATIVE NEGATIVE Urine RBC (Auto) NEGATIVE NEGATIVE Urine RBC NONE /HPF Urine WBC RARE /HPF Urine Squamous Epithelial Cells RARE /HPF Urine Crystals NONE /LPF Urine Bacteria NEGATIVE /HPF Urine Casts NONE /LPF Urine Mucus NEGATIVE /LPF Urine Culture Indicated NO Urine Opiates Screen NEGATIVE NEGATIVE Urine Oxycodone Screen NEGATIVE NEGATIVE Urine Methadone Screen NEGATIVE NEGATIVE Urine Propoxyphene Screen NEGATIVE NEGATIVE Urine Barbiturates Screen NEGATIVE NEGATIVE Ur Tricyclic Antidepressants Screen POSITIVE H NEGATIVE Urine Phencyclidine Screen NEGATIVE NEGATIVE Urine Amphetamines Screen NEGATIVE NEGATIVE Urine Methamphetamines Screen NEGATIVE NEGATIVE Urine Benzodiazepines Screen NEGATIVE NEGATIVE Urine Cocaine Screen NEGATIVE NEGATIVE Urine Cannabinoids Screen NEGATIVE NEGATIVE (SILKE LEWIS MD) My Orders Orders - SILKE LEWIS MD Ekg Tracing (06/27/22 05:00) (SILKE LEWIS MD) Medications Given in ED (SILKE LEWIS MD) Vital Signs/I&O 06/27/22 06/27/22 06/27/22 04:40 04:40 08:56 Temp 36.7 36.7 Pulse 78 78 75 Resp 16 16 16 B/P (MAP) 156/100 (118) 156/100 139/100 Pulse Ox 96 96 96 O2 Delivery Room Air Room Air (SILKE LEWIS MD) Vital Signs/I&O Capillary Refill : (VASILE SARMIENTO DO) Point of Care Testing Finger Stick Blood Glucose: 108 Blood Glucose Action Taken: DR NOTIFIED (VASILE SARMIENTO DO) Progress Note : Progress Note STROKE ACTIVATION ON ARRIVAL TAKEN IMMEDIATELY TO CT SCAN, AND PT IS ABLE TO TRANSFER HERSELF FROM ER CART TO CT TABLE, SCOOT HERSELF ALL THE WAY UP ON THE CT TABLE, ALL ON HER OWN WITHOUT ANY DIFFICULTY, USING ALL EXTREMITIES EQUALLY. WHEN CT EXAM FINISHED, PT SAT STRAIGHT UP AND MOVED SELF OVER FROM CT TABLE BACK TO ER CART ALL ON COMMAND AND ALL ON HER OWN WITHOUT DIFFICULTY. PT IS STILL NOT ANSWERING QUESTIONS OR TALKING ON RETURN FROM CT, BUT IS FOLLOWING ALL COMMANDS APPROPRIATELY. NIH--1 FOR APHASIA. NO TPA DUE TO UNKNOWN ONSET, SHE WOKE UP WITH IT AT 0430 AND LAST KNOWN WELL TIME WAS 1900 LAST NIGHT, AND NIH IS ONLY 1. 0600--PT IS NOW BACK TO NORMAL BASELINE, PT IS TALKING NORMALLY, MOVING ALL EXTREMITIES . NO C/O HEADACHE ( FREQUENT COMPLAINT), AND CHRONIC LEFT ARM PAIN . (VASILE SARMIENTO DO) Progress Note #1: Time: 06:36 Progress Note Assumed care of patient at shift change - 0600. Patient coming back from CTA head and necl. reported by the principal technical architect, patient is awake, alert, oriented and speaking in full sentences. moving herself from stretcher to CT table without difficulty. repeat EKG obtained secondary to sig artifact noted on initial EKG. CTA read pending at this time. Progress Note #2: Time: 08:03 Progress Note Reassessed patient after CT angio results were negative. She is completely neurologically normal. She is complaining of pain to the left upper extremity and some weakness in that extremity. She states that has been going on since her previous "stroke". I did discuss with both her and her that I could not find any evidence in the medical record especially on imaging/MRI of the brain where she had had a stroke that would have reflected an injury to the part of the brain that would control her left arm. I suggested that potentially she might have a compressed nerve coming from her neck causing the actual "pain" in her left arm. I suggested that she follow-up with her primary care provider at [facility] to inquire about possibly having imaging of her cervical spine by MRI to look for bulging disks. Her is very concerned about the fact that she had abnormal speech and seemed confused this morning. He wanted to know what the "cause" was. I advised him that in the emergency department our job is to look for life or limb threatening issues that would put patient at risk for further deterioration or decompensation and that we often times do not come up with a final diagnosis in the emergency room. 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 She is a little hypertensive this morning. She has not taken her blood pressure medications this morning. I encouraged her to do this. I recommended again that she call her primary care doctor. She is concerned about some swelling in her bilateral axilla. Its been greater than a year since she has had a mammogram her well woman evaluation. I suggested that she arrange to get a mammogram and have her primary care doctor also examine her axilla. I did examine her and did not find any palpable masses/lymphadenopathy. Pulses to the left upper extremity are brisk and intact. Sensation is normal. Strength is normal. I reviewed her labs, chest x-ray. All of these are reassuring. All questions a re sought and answered. Patient is stable for discharge. (SILKE LEWIS MD) ECG Initial ECG Impression Date: Jun 27, 2022 Initial ECG Impression Time: 05:02 Initial ECG Rate: 73 Comment MUCH ARTIFACT, BUT APPEARS TO BE NSR ON EKG, AND PT IS IN NSR ON TELEMETRY. (VASILE SARMIENTO DO) EKG : EKG Time: 06:33 Rate: 64 Rhythm: Normal Sinus (64bpm) Intervals: Normal Intervals normal intervals ECG Impression: Normal Comment no st segment elevation or depression; no ectopy is noted (SILKE LEWIS MD) Diagnostic Imaging Comments CT HEAD--NO ACUTE PROCESS, PER [facility] VIA FAX AT [id number] Reviewed: Reviewed by Me (VASILE SARMIENTO DO) Diagonstic Imaging: CT Comments [facility] [place], [place] NAME: LUISITO DUGANArik Mcintosh [facility] REC#: [id number] PT STATUS: REG ER : 1970 PHYSICIAN: VASILE SARMIENTO DO ADMIT DATE: 06/27/22/ER Draft Date of Exam:06/27/22 CT HEAD WO-R/O STROKE PROCEDURE: CT head wo r/o stroke. TECHNIQUE: Multiple contiguous axial images were obtained through the brain without the use of intravenous contrast. Auto Exposure Controls were utilized during the CT exam to meet ALARA standards for radiation dose reduction. INDICATION: 52-year-old female, altered mental status CORRELATION: 02/26/2022 FINDINGS: There is no midline shift or mass effect. The ventricles and sulci are unremarkable. No evidence for acute intracranial hemorrhage, abnormal extra-axial fluid collections or cerebral edema is present. The basilar cisterns are unremarkable. The bony calvarium is intact. The visualized paranasal sinuses and mastoid air cells are clear. IMPRESSION: Negative appearing noncontrast CT of the head. Initial report was provided by [facility]. Dictated on workstation # [id number] Dict: 06/27/22629 Trans: 06/27/22 06 DO Interpreted by: NICOLE SPENCER DO Electronically signed by: Sydneyerasto Imaging: Xray Plain Films/CT/US/NM/MRI: chest Comments [facility] [place] [place] NAME: LUISITO DUGANArik Mcintosh [facility] REC#: [id number] PT STATUS: REG ER : 1970 PHYSICIAN: VASILE SARMIENTO DO ADMIT DATE: 06/27/22/ER Draft Date of Exam:06/27/22 CHEST 1 VIEW, AP/PA ONLY INDICATION: Altered mental status. Comparison with 06/07/2022. FINDINGS: Portable chest. The lungs are clear. The heart is not enlarged. No pulmonary edema or hilar adenopathy. No pneumothorax or pleural effusion. No bony abnormalities. IMPRESSION: Normal portable chest. No significant change since previous exam. Dictated on workstation # [id number] Dict: 06/27/22616 Trans: 06/27/22619 BHARAT Interpreted by: JAYA AGUILAR MD Electronically signed by: Mattnstic Imaging: CT [facility] [place] [place] NAME: JC DUGAN [facility] REC#: [id number] PT STATUS: REG ER : 1970 PHYSICIAN: VASILE SARMIENTO DO ADMIT DATE: 06/27/22/ER Draft Date of Exam:06/27/22 CT ANGIO HEAD/NECK PROCEDURE: CT angiography of the head and CT angiography of the neck with and without contrast. TECHNIQUE: Contiguous noncontrast images were obtained from the skull base through the vertex. After intravenous contrast administration, helical CT angiography of the neck was performed. Source data was reformatted into 3D MIP projections. Delayed post contrast acquisition was also obtained. Auto Exposure Controls were utilized during the CT exam to meet ALARA standards for radiation dose reduction. INDICATION: 52-year-old female, altered mental status. COMPARISON: None FINDINGS: CTA NECK: Aorta: Left vertebral artery originates off the aortic arch, normal anatomic variant. Right Common/Internal/External Carotid Artery: Right common carotid artery patent. Carotid bifurcation unremarkable. There is artifact over the mid right internal carotid artery which appears grossly unremarkable. External carotid artery patent. Left Common/Internal/External Carotid Artery: Left common carotid artery, carotid bifurcation as well as external carotid artery patent. There is artifact over the left mid internal carotid artery, otherwise unremarkable. Vertebral arteries: Codominant. Patent and without significant stenosis. Non-vascular: Lung apices unremarkable. Airway is patent. Soft tissues of the neck are unremarkable. Metallic artifact from dental catholic. Paranasal sinuses are clear. Cervical spinal alignment relatively anatomic and unremarkable. CTA HEAD: Anterior Circulation: The intracranial internal carotid arteries are patent. The bilateral middle cerebral arteries are patent and without stenosis. The anterior cerebral arteries are patent and without stenosis. Posterior Circulation: The bilateral intracranial segments of the vertebral arteries are patent. The basilar artery is patent and without stenosis. The posterior cerebral arteries are patent. Post Contrast Head: No concerning enhancement on delayed post-contrast imaging. IMPRESSION: 1. Negative CTA of the head. 2. Negative CTA of the neck. Dictated on workstation # [id number] Dict: 06/27/22 0646 Trans: 06/27/22 0741 BHARAT [id number] Interpreted by: NICLOE SPENCER DO Electronically signed by: (SILKE LEWIS MD) Departure Impression Primary Impression: Episode of confusion Additional Impressions: High blood pressure Qualified Codes: I10 - Essential (primary) hypertension Left arm pain Disposition: 01 HOME, SELF-CARE Condition: Improved Departure-Patient Inst. Decision time for Depature: 08:09 (SILKE LEWIS MD) Referrals: RENETTA CARPIO MD (PCP/Family) Primary Care Physician Patient Instructions: High Blood Pressure ED Add. Discharge Instructions: Continue your daily medications as prescribed. Call Dr Carpio's office for a follow up appointment to further evaluate and investigate causes for your confusion and trouble speaking this morning. You should also talk to them about causes for your left arm pain, such as compressed nerves in your neck that could cause your discomfort. You have no evidence for stroke today. You can take over the counter Naproxen (Aleve) 2 pills twice a day with food as needed for pain. Return to the Emergency Department for any new, concerning or emergent complaints. Copy Copies To 1: RENETTA CARPIO MD, LISA K DO Jun 27, 2022 05:01 SILKE LEWIS MD Jun 27, 2022 06:40
[2022-06-27 05:23] LABS: BASOPHILS # (AUTO) 0.1 10^3/uL (0.0-0.1); BASOPHILS % (AUTO) 1 % (0-10); EOSINOPHILS # (AUTO) 0.5 10^3/uL (0.0-0.3); EOSINOPHILS % (AUTO) 8 % (0-10); HEMATOCRIT 34 % (35-52); HEMOGLOBIN 10.7 g/dL (11.5-16.0); LYMPHOCYTES # (AUTO) 2.9 10^3/uL (1.0-4.0); LYMPHOCYTES % (AUTO) 45 % (12-44); MEAN CORPUSCULAR HEMOGLOBIN 25 pg (25-34); MEAN CORPUSCULAR HGB CONC 31 g/dL (32-36); MEAN CORPUSCULAR VOLUME 81 fL (80-99); MEAN PLATELET VOLUME 9.6 fL (9.0-12.2); MONOCYTES # (AUTO) 0.5 10^3/uL (0.0-1.0); MONOCYTES % (AUTO) 7 % (0-12); NEUTROPHILS # (AUTO) 2.5 10^3/uL (1.8-7.8); NEUTROPHILS % (AUTO) 38 % (42-75); PLATELET COUNT 224 10^3/uL (130-400); WHITE BLOOD COUNT 6.4 10^3/uL (4.3-11.0)
[2022-06-27 05:38] LABS: FIBRIN DEGRADATION PRODUCTS 0.47 UG/ML (0.00-0.49); INR 0.9 (0.8-1.4)
[2022-06-27 05:45] LABS: ALANINE AMINOTRANSFERASE 25 U/L (0-55); ALKALINE PHOSPHATASE 100 U/L (40-136); BILIRUBIN,TOTAL 0.4 MG/DL (0.1-1.0); BUN/CREATININE RATIO 17; CALCIUM 9.5 MG/DL (8.5-10.1); CARBON DIOXIDE 23 MMOL/L (21-32); CHLORIDE 106 MMOL/L (98-107); CREATININE SERUM 0.84 MG/DL (0.60-1.30); GFR ESTIMATED 84; GLUCOSE 115 MG/DL (70-105); MAGNESIUM 1.8 MG/DL (1.6-2.4); POTASSIUM 3.8 MMOL/L (3.6-5.0); SODIUM 141 MMOL/L (135-145); TOTAL PROTEIN 6.9 GM/DL (6.4-8.2)
[2022-06-27 05:52] LABS: ERYTHROCYTE SEDIMENTATION RATE 34 MM/HR (0-30)
[2022-06-27 05:57] LABS: BILIRUBIN,URINE NEGATIVE (NEGATIVE); CLARITY,URINE CLEAR; COLOR,URINE YELLOW; GLUCOSE, URINE (UA) NEGATIVE (NEGATIVE); KETONES,URINE NEGATIVE (NEGATIVE); LEUKOCYTE ESTERASE ,URINE NEGATIVE (NEGATIVE); NITRITE,URINE NEGATIVE (NEGATIVE); PROTEIN,URINE NEGATIVE (NEGATIVE)
[2022-06-27 06:03] LABS: BACTERIA,URINE NEGATIVE /HPF; SQUAMOUS EPITHELIAL CELL,UR RARE /HPF; WBC,URINE RARE /HPF
[2022-06-27 06:04] LABS: TSH (THYROID ANALYZER) 1.45 UIU/ML (0.35-4.94)
[2022-06-27 06:08] LABS: AMPHETAMINE SCREEN, URINE NEGATIVE (NEGATIVE); BARBITURATE SCREEN URINE NEGATIVE (NEGATIVE); BENZODIAZEPINES SCREEN URINE NEGATIVE (NEGATIVE); CANNABINOID SCREEN, URINE NEGATIVE (NEGATIVE); COCAINE SCREEN URINE NEGATIVE (NEGATIVE); METHADONE STAT NEGATIVE (NEGATIVE); OPIATE SCREEN URINE NEGATIVE (NEGATIVE); OXYCODONE STAT NEGATIVE (NEGATIVE); PROPOXYPHENE STAT NEGATIVE (NEGATIVE); TRICYCLIC ANTIDEPRESSANTS SCRE POSITIVE (NEGATIVE)
--- NOTE | 2022-06-27 06:20 | Diagnostic Imaging Report ---
INDICATION: Altered mental status. Comparison with 06/07/2022. FINDINGS: Portable chest. The lungs are clear. The heart is not enlarged. No pulmonary edema or hilar adenopathy. No pneumothorax or pleural effusion. No bony abnormalities. IMPRESSION: Normal portable chest. No significant change since previous exam. Dictated by: Dictated on workstation # [id number]
--- NOTE | 2022-06-27 06:31 | Diagnostic Imaging Report ---
PROCEDURE: CT head wo r/o stroke. TECHNIQUE: Multiple contiguous axial images were obtained through the brain without the use of intravenous contrast. Auto Exposure Controls were utilized during the CT exam to meet ALARA standards for radiation dose reduction. INDICATION: 52-year-old female, altered mental status CORRELATION: 02/26/2022 FINDINGS: There is no midline shift or mass effect. The ventricles and sulci are unremarkable. No evidence for acute intracranial hemorrhage, abnormal extra-axial fluid collections or cerebral edema is present. The basilar cisterns are unremarkable. The bony calvarium is intact. The visualized paranasal sinuses and mastoid air cells are clear. IMPRESSION: Negative appearing noncontrast CT of the head. Initial report was provided by [facility]. Dictated by: Dictated on workstation # [id number]
[2022-06-27] MEDS ORDERED: CATHETER FLUSH 10 ML SYR IV PRN (06:45)
[2022-06-27] MEDS ORDERED: NS 100 ML (IVPB) BAG IV ONE (06:45)
[2022-06-27] MEDS ORDERED: IOHEXOL 350 MG/ML 100 ML (OMNIPAQUE 350) VIAL IV ONE (06:45)
--- NOTE | 2022-06-27 07:43 | Diagnostic Imaging Report ---
PROCEDURE: CT angiography of the head and CT angiography of the neck with and without contrast. TECHNIQUE: Contiguous noncontrast images were obtained from the skull base through the vertex. After intravenous contrast administration, helical CT angiography of the neck was performed. Source data was reformatted into 3D MIP projections. Delayed post contrast acquisition was also obtained. Auto Exposure Controls were utilized during the CT exam to meet ALARA standards for radiation dose reduction. INDICATION: 52-year-old female, altered mental status. COMPARISON: None FINDINGS: CTA NECK: Aorta: Left vertebral artery originates off the aortic arch, normal anatomic variant. Right Common/Internal/External Carotid Artery: Right common carotid artery patent. Carotid bifurcation unremarkable. There is artifact over the mid right internal carotid artery which appears grossly unremarkable. External carotid artery patent. Left Common/Internal/External Carotid Artery: Left common carotid artery, carotid bifurcation as well as external carotid artery patent. There is artifact over the left mid internal carotid artery, otherwise unremarkable. Vertebral arteries: Codominant. Patent and without significant stenosis. Non-vascular: Lung apices unremarkable. Airway is patent. Soft tissues of the neck are unremarkable. Metallic artifact from dental faith. Paranasal sinuses are clear. Cervical spinal alignment relatively anatomic and unremarkable. CTA HEAD: Anterior Circulation: The intracranial internal carotid arteries are patent. The bilateral middle cerebral arteries are patent and without stenosis. The anterior cerebral arteries are patent and without stenosis. Posterior Circulation: The bilateral intracranial segments of the vertebral arteries are patent. The basilar artery is patent and without stenosis. The posterior cerebral arteries are patent. Post Contrast Head: No concerning enhancement on delayed post-contrast imaging. IMPRESSION: 1. Negative CTA of the head. 2. Negative CTA of the neck. Dictated by: Dictated on workstation # [id number]
[2022-06-27 08:56] VITALS: BP 139/100
== END 2022-06-27 08:56 | disposition home or self-care (01) ==
LOC: EDUNIT# 04:39 → ER 04:41
DX: R41.0 Disorientation, unspecified (principal); I10 Essential (primary) hypertension; M79.602 Pain in left arm; Z91.14 Patient's other noncompliance with medication regimen; Z86.79 Personal history of other diseases of the circulatory system; Z95.810 Presence of automatic (implantable) cardiac defibrillator; Z20.822 Contact with and (suspected) exposure to COVID-19; Z28.310 Unvaccinated for COVID-19
CPT/HCPCS: 70450; 70496; 70498; 71045; 80053; 80306; 81000; 82140; 82947; 83605; 83735; 83874; 84443; 84484; 84703; 85025; 85379; 85610; 85652; 85730; 86141; 87636; 93005; 93041; 99284; G0480; 36415; 80320

== ENCOUNTER 2022-10-20 14:45 | Emergency (ER) | payer SELFPAY ==
[~2022-10-20] VITALS: Ht 167.7 cm; Wt 91.6 kg
[2022-10-20 17:51] LABS: BASOPHILS # (AUTO) 0.1 10^3/uL (0.0-0.1); BASOPHILS % (AUTO) 1 % (0-10); EOSINOPHILS # (AUTO) 0.3 10^3/uL (0.0-0.3); EOSINOPHILS % (AUTO) 4 % (0-10); HEMATOCRIT 34 % (35-52); HEMOGLOBIN 10.2 g/dL (11.5-16.0); LYMPHOCYTES # (AUTO) 2.5 10^3/uL (1.0-4.0); LYMPHOCYTES % (AUTO) 38 % (12-44); MEAN CORPUSCULAR HEMOGLOBIN 24 pg (25-34); MEAN CORPUSCULAR HGB CONC 30 g/dL (32-36); MEAN CORPUSCULAR VOLUME 78 fL (80-99); MEAN PLATELET VOLUME 10.6 fL (9.0-12.2); MONOCYTES # (AUTO) 0.4 10^3/uL (0.0-1.0); MONOCYTES % (AUTO) 6 % (0-12); NEUTROPHILS # (AUTO) 3.4 10^3/uL (1.8-7.8); NEUTROPHILS % (AUTO) 51 % (42-75); PLATELET COUNT 283 10^3/uL (130-400); WHITE BLOOD COUNT 6.7 10^3/uL (4.3-11.0)
[2022-10-20 17:56] LABS: ALBUMIN 4.1 GM/DL (3.2-4.5); CHLORIDE 104 MMOL/L (98-107); POTASSIUM 3.4 MMOL/L (3.6-5.0); SODIUM 138 MMOL/L (135-145)
[2022-10-20 17:57] LABS: CALCIUM 9.9 MG/DL (8.5-10.1)
--- NOTE | 2022-10-20 17:57 | Diagnostic Imaging Report ---
EXAMINATION: Chest 1 view. HISTORY: Cough. Chest tightness. COMPARISON: 06/27/2022. FINDINGS: The lung volumes are normal. No focal consolidation is seen. No large pleural effusion or pneumothorax is seen. The cardiomediastinal silhouette is normal in size and contour. No acute osseous abnormality is seen. IMPRESSION: No acute pleuroparenchymal process. Dictated by: Dictated on workstation # [id number]
[2022-10-20 17:58] LABS: GLUCOSE 98 MG/DL (70-105); TOTAL PROTEIN 7.5 GM/DL (6.4-8.2)
[2022-10-20 17:59] LABS: CARBON DIOXIDE 23 MMOL/L (21-32)
[2022-10-20 18:00] LABS: BILIRUBIN,TOTAL 0.3 MG/DL (0.1-1.0)
[2022-10-20 18:02] LABS: ALKALINE PHOSPHATASE 111 U/L (40-136); CREATININE SERUM 0.84 MG/DL (0.60-1.30); GFR ESTIMATED 84
[2022-10-20 18:03] LABS: BUN/CREATININE RATIO 14
[2022-10-20 18:05] LABS: ALANINE AMINOTRANSFERASE 21 U/L (0-55)
[2022-10-20 18:13] VITALS: BP 108/86
[2022-10-20] MEDS ORDERED: MECL-149 PO (18:18)
--- NOTE | 2022-10-20 18:18 | ED General ---
General Chief Complaint: Dizziness/Syncope Stated Complaint: DIZZY | FEELING ILL Nursing Triage Note: PT AMB TO TRIAGE W C/O DIZZINESS, NAUSEA, DIARRHEA, AND COUGH X2 WEEKS, VERTIGO/L EAR TINNITUS X2 DAYS. Source of Information: Patient Exam Limitations: No Limitations (MED BRODERICK APRN) History of Present Illness Date Seen by Provider: Oct 20, 2022 Time Seen by Provider: 17:35 Initial Comments Patient is a 52-year-old female who presents to the emergency department for evaluation of left ear ringing and dizziness/vertigo that have been present for 2 to 3 days. Patient states she has also had some shortness of air and nonproductive cough for approximately 2 weeks. Patient denies any fever, vomiting/diarrhea, headache, vision change. She states she does sometimes have bilateral hand numbness/tingling that is intermittent and self-limiting. No persistent focal weakness/numbness. (MED BRODERICK APRN) Allergies and Home Medications Allergies Coded Allergies: morphine (Verified Allergy, Unknown, 04/27/17) Patient Home Medication List Home Medication List Reviewed: Yes (MED BRODERICK APRN) Amitriptyline HCl (Amitriptyline HCl) 25 Mg Tablet, 25 MG PO HS, (Reported) Entered as Reported by: ELIS FRANKLIN on 04/06/22 1038 Amlodipine Besylate (Amlodipine Besylate) 5 Mg Tablet, 5 MG PO DAILY Prescribed by: GERALDINE MÉNDEZ on 06/08/22 1127 Aspirin (Aspirin EC) 81 Mg Tablet.dr, 81 MG PO DAILY, (Reported) Entered as Reported by: ELIS FRANKLIN on 06/08/22 1011 Lisinopril (Lisinopril) 10 Mg Tablet, 10 MG PO DAILY Prescribed by: GERALDINE MÉNDEZ on 06/08/22 1128 Meclizine HCl (Meclizine HCl) 25 Mg Tablet, 25 MG PO Q8H PRN for VERTIGO Prescribed by: Med Broderick on 10/20/22 1818 Metoprolol Succinate (Metoprolol Succinate) 100 Mg Tab.er.24h, 100 MG PO DAILY Prescribed by: GERALDINE MÉNDEZ on 06/08/22 1127 Nitroglycerin (Nitroglycerin) 0.4 Mg Tab.subl, 0.4 MG SL UD PRN for CHEST PAIN, (Reported) Entered as Reported by: ELIS FRANKLIN on 06/08/22 1011 Paroxetine HCl (Paroxetine HCl) 40 Mg Tablet, 40 MG PO DAILY, (Reported) Entered as Reported by: ELIS FRANKLIN on 02/27/22 1433 Rosuvastatin Calcium (Rosuvastatin Calcium) 20 Mg Tablet, 20 MG PO HS Prescribed by: GERALDINE MÉNDEZ on 06/08/22 1127 Tramadol HCl (Tramadol HCl) 50 Mg Tablet, 50 MG PO TID PRN for PAIN-MODERATE (5- 7) Prescribed by: GERALDINE MÉNDEZ on 06/08/22 1128 Review of Systems Review of Systems Constitutional: see HPI, dizziness EENTM: no symptoms reported Respiratory: no symptoms reported Cardiovascular: no symptoms reported Gastrointestinal: no symptoms reported Genitourinary: no symptoms reported Musculoskeletal: no symptoms reported Skin: no symptoms reported Psychiatric/Neurological: See HPI (MED BRODERICK APRN) Past Ztqyodx-Mkyfwf-Gusurt Hx Patient Social History Tobacco Use?: No Use of E-Cig and/or Vaping dev: No Substance use?: No Alcohol Use?: No (MED BRODERICK APRN) Immunizations Up To Date Tetanus Booster (TDap): More than 5yrs PED Vaccines UTD: Yes Influenza Vaccine Up-to-Date: No; Not Current First/Initial COVID19 Vaccinat: NONE Second COVID19 Vaccination Frank: NONE Third COVID19 Vaccination Date: NONE COVID19 Vaccine Cartographic Drafter: NONE (MED BRODERICK APRN) Seasonal Allergies Seasonal Allergies: No (MED BRODERICK APRN) Past Medical History Surgery/Hospitalization HX: IRREGULAR HR, TIA Surgeries: Yes (WISDOM TEETH; LOOP RECORDER 01/2021) Respiratory: Yes Pneumonia Cardiac: Yes (TACHYCARDIA; LOOP RECORDER PLACED IN 2020 AFTER SYNCOPE VS SEIZURE) High Cholesterol, Hypertension, Irregular Heartbeat, Syncope Neurological: Yes (TIA 02/2022 WITH APHASIA-COMPLETE RESOLUTION) Concussion, Headaches /Migraines, Seizure Disorder, Stroke, TIA 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 Disorders: No 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 Sexually Transmitted Disease: No Genitourinary: No Gastrointestinal: No Musculoskeletal: Yes (CHRONIC NECK PAIN; CHRONIC RIGHT KNEE PAIN/TORN MENISCUS PER MRI 01/26/21) Degenerate Disk Disease, Scoliosis, Chronic Back Pain Endocrine: No HEENT: No Cancer: No Psychosocial: Yes Anxiety, Depression Integumentary: No Blood Disorders: No (MED BRODERICK APRN) Family Medical History Cardiovascular disease FH: breast cancer 19 MOTHER (METS) FH: lung cancer 19 FATHER FHx: mental retardation G8 BROTHER Myocardial infarction 19 FATHER (X2) Heart Disease, Cancer (MED BRODERICK APRN) Physical Exam Vital Signs Vital Signs - First Documented 10/20/22 15:10 Temp 36.9 Pulse 101 Resp 20 B/P (MAP) 132/91 (105) Pulse Ox 100 O2 Delivery Room Air (USMAN MISTRY MD) Vital Signs Capillary Refill : Less Than 3 Seconds (MED BRODERICK APRN) Height, Weight, BMI Height: 5'6.00" Weight: 180lbs. 5.0oz. [id number]; 32.00 BMI Method:Stated General Appearance: No Apparent Distress, WD/WN HEENT: PERRL/EOMI, TMs Normal, Normal ENT Inspection, Pharynx Normal Neck: Full Range of Motion, Normal Inspection, Non Tender, Supple Respiratory: Chest Non Tender, Lungs Clear, Normal Breath Sounds, No Accessory Muscle Use, No Respiratory Distress Cardiovascular: Regular Rate, Rhythm, No Edema, No Gallop, No JVD, No Murmur, Normal Peripheral Pulses Gastrointestinal: Normal Bowel Sounds, Non Tender, Soft Neurologic/Psychiatric: Alert, Oriented x3, No Motor/Sensory Deficits, Normal Mood/Affect Skin: Normal Color, Warm/Dry (MED BRODERICK APRN) Progress/Results/Core Measures Suspected Sepsis SIRS Temperature: Pulse: 101 Respiratory Rate: 20 Laboratory Tests 10/20/22 15:55: White Blood Count 6.7 Blood Pressure 132 /91 Mean: 105 Laboratory Tests 10/20/22 15:55: Creatinine 0.84, Platelet Count 283, Total Bilirubin 0.3 (MED BRODERICK APRN) Results/Orders Lab Results Laboratory Tests Test 10/20/22 15:35 10/20/22 15:55 Range/Units Influenza Type A (RT-PCR) Not Detected Not Detecte Influenza Type B (RT-PCR) Not Detected Not Detecte SARS-CoV-2 RNA (RT-PCR) Not Detected Not Detecte White Blood Count 6.7 4.3-11.0 10^3/uL Red Blood Count 4.29 3.80-5.11 10^6/uL Hemoglobin 10.2 L 11.5-16.0 g/dL Hematocrit 34 L 35-52 % Mean Corpuscular Volume 78 L 80-99 fL Mean Corpuscular Hemoglobin 24 L 25-34 pg Mean Corpuscular Hemoglobin Concent 30 L 32-36 g/dL Red Cell Distribution Width 17.2 H 10.0-14.5 % Platelet Count 283 130-400 10^3/uL Mean Platelet Volume 10.6 9.0-12.2 fL Immature Granulocyte % (Auto) 0 % Neutrophils (%) (Auto) 51 42-75 % Lymphocytes (%) (Auto) 38 12-44 % Monocytes (%) (Auto) 6 0-12 % Eosinophils (%) (Auto) 4 0-10 % Basophils (%) (Auto) 1 0-10 % Neutrophils # (Auto) 3.4 1.8-7.8 10^3/uL Lymphocytes # (Auto) 2.5 1.0-4.0 10^3/uL Monocytes # (Auto) 0.4 0.0-1.0 10^3/uL Eosinophils # (Auto) 0.3 0.0-0.3 10^3/uL Basophils # (Auto) 0.1 0.0-0.1 10^3/uL Immature Granulocyte # (Auto) 0.0 0.0-0.1 10^3/uL Sodium Level 138 135-145 MMOL/L Potassium Level 3.4 L 3.6-5.0 MMOL/L Chloride Level 104 98-107 MMOL/L Carbon Dioxide Level 23 21-32 MMOL/L Anion Gap 11 5-14 MMOL/L Blood Urea Nitrogen 12 7-18 MG/DL Creatinine 0.84 0.60-1.30 MG/DL Estimat Glomerular Filtration Rate 84 BUN/Creatinine Ratio 14 Glucose Level 98 70-105 MG/DL Calcium Level 9.9 8.5-10.1 MG/DL Corrected Calcium 9.8 8.5-10.1 MG/DL Total Bilirubin 0.3 0.1-1.0 MG/DL Aspartate Amino Transf (AST/SGOT) 23 5-34 U/L Alanine Aminotransferase (ALT/SGPT) 21 0-55 U/L Alkaline Phosphatase 111 40-136 U/L Troponin I < 0.028 <0.028 NG/ML Total Protein 7.5 6.4-8.2 GM/DL Albumin 4.1 3.2-4.5 GM/DL (USMAN MISTRY MD) My Orders Orders - USMAN MISTRY MD Covid 19 Inhouse Test (10/20/22 15:40) Influenza A And B By Pcr (10/20/22 15:40) (USMAN MISTRY MD) Vital Signs/I&O 10/20/22 10/20/22 15:10 18:13 Temp 36.9 Pulse 101 84 Resp 20 20 B/P (MAP) 132/91 (105) 108/86 Pulse Ox 100 100 O2 Delivery Room Air Room Air (USMAN MISTRY MD) Vital Signs/I&O Capillary Refill : Less Than 3 Seconds (MED BRODERICK APRN) Blood Pressure Mean: 105 Progress Note : Progress Note Patient is nontoxic and well-hydrated on exam. No focal neurologic deficits appreciated. Otoscopy of both ears is normal. No adventitious lung sounds or increased work of breathing noted. Peripheral pulses are strong and regular. Patient ambulatory without ataxia. Ckyc-zz-jvhv and nose to finger intact. Vital signs are reassuring. COVID and flu testing are negative. Laboratory evaluation is unremarkable. Troponin is negative. Patient is not anemic. Very mild hypokalemia noted. Chest x-ray without acute findings. We will treat the vertiginous symptoms with meclizine. No indication for cross-sectional imaging of the head as there is no lateralizing deficits. No obvious cerebellar dysfunction noted. Discussed importance of close follow-up with PCP. Return precautions for urgent symptomology discussed. Patient verbalized understanding . (MED BRODERICK APRN) ECG EKG : EKG Time: 18:02 Rate: 89 Rhythm: Normal Sinus ECG Impression: Nonspecific Changes (MED BRODERICK APRN) Departure Impression Primary Impression: Vertigo Additional Impression: Cough Qualified Codes: R05.1 - Acute cough Disposition: 01 HOME, SELF-CARE Condition: Stable Departure-Patient Inst. Decision time for Depature: 18:15 (MED BRODERICK APRN) Referrals: RENETTA CARPIO MD (PCP) Primary Care Physician Patient Instructions: Vertigo ED Scripts Meclizine HCl (Meclizine HCl) 25 Mg Tablet 25 MG PO Q8H PRN for VERTIGO, #15 TAB 0 Refills Prov: MED BRODERICK APRN 10/20/22 ATTENDING PHYSICIAN NOTE: I was physically present as attending physician in the emergency department during the care of this patient, but I was not directly involved in the decision making or delivery of care for this patient. (USMAN MISTRY MD) MED BRODERICK APRN Oct 20, 2022 18:18 USMAN MISTRY MD Oct 21, 2022 20:31
[2022-10-20] MEDS ORDERED: MECLIZINE 25 MG (ANTIVERT) TAB PO ONE (18:30)
== END 2022-10-20 18:34 | disposition home or self-care (01) ==
LOC: EDUNIT# 14:45 → ER 14:47
DX: R42 Dizziness and giddiness (principal); R05.9 Cough, unspecified; E87.6 Hypokalemia; Z20.822 Contact with and (suspected) exposure to COVID-19; Z28.310 Unvaccinated for COVID-19
CPT/HCPCS: 36415; 71045; 80053; 84484; 85025; 87636; 93005

== ENCOUNTER 2023-09-05 23:29 | Emergency (ER) | payer SELFPAY ==
[~2023-09-05] VITALS: Ht 170 cm; Wt 82.0 kg
[~2023-09-05 23:29] MED LIST changes: +MECL-291 PO; -ORPH100T PO; +ORPH100T3 PO; -ROSU20TA32 PO; +ROSU20TA73 PO
--- NOTE | 2023-09-05 23:42 | ED Fall/Injury ---
General Stated Complaint: FALL Source: patient, old records History of Present Illness Date Seen by Provider: Sep 05, 2023 Time Seen by Provider: 23:32 Initial Comments PT ARRIVES VIA EMS FROM HOME AROUND [address], PT WAS WALKING IN HER HOUSE, AND RIGHT KNEE GAVE OUT AND SHE FELL, LANDING ON HER RIGHT KNEE AND CATCHING HERSELF WITH OUTSTRETCHED LEFT ARM--LANDED ON [place] FLOOR C/O RIGHT KNEE PAIN C/O LEFT UPPER ARM PAIN NO PARESTHESIAS OR MOTOR DEFICITS SHE HAS HAD CHRONIC PROBLEMS WITH RIGHT KNEE, BUT HAS NOT HAD ANY SURGERIES ON THE KNEE EMS GAVE [address] PRIOR TO ARRIVAL PCP: [facility] [place] Allergies and Home Medications Allergies Coded Allergies: morphine (Verified Allergy, Unknown, 04/27/17) Patient Home Medication List Home Medication List Reviewed: Yes Amitriptyline HCl (Amitriptyline HCl) 25 Mg Tablet, 25 MG PO HS, (Reported) Entered as Reported by: ELIS FRANKLIN on 04/06/22 1038 Amlodipine Besylate (Amlodipine Besylate) 5 Mg Tablet, 5 MG PO DAILY Prescribed by: GERALDINE MÉNDEZ on 06/08/22 1127 Aspirin (Aspirin EC) 81 Mg Tablet.dr, 81 MG PO DAILY, (Reported) Entered as Reported by: ELIS FRANKLIN on 06/08/22 1011 Ketorolac Tromethamine (Ketorolac Tromethamine) 10 Mg Tablet, 10 MG PO Q6H Prescribed by: VASILE SARMIENTO on 09/06/23 0010 Lisinopril (Lisinopril) 10 Mg Tablet, 10 MG PO DAILY Prescribed by: GERALDINE MÉNDEZ on 06/08/22 1128 Meclizine HCl (Meclizine HCl) 25 Mg Tablet, 25 MG PO Q8H PRN for VERTIGO Prescribed by: Med Broderick on 10/20/22 1818 Metoprolol Succinate (Metoprolol Succinate) 100 Mg Tab.er.24h, 100 MG PO DAILY Prescribed by: GERALDINE MÉNDEZ on 06/08/22 1127 Nitroglycerin (Nitroglycerin) 0.4 Mg Tab.subl, 0.4 MG SL UD PRN for CHEST PAIN, (Reported) Entered as Reported by: ELIS FRANKLIN on 06/08/22 1011 Paroxetine HCl (Paroxetine HCl) 40 Mg Tablet, 40 MG PO DAILY, (Reported) Entered as Reported by: ELIS FRANKLIN on 02/27/22 1433 Rosuvastatin Calcium (Rosuvastatin Calcium) 20 Mg Tablet, 20 MG PO HS Prescribed by: GERALDINE MÉNDEZ on 06/08/22 1127 Tramadol HCl (Tramadol HCl) 50 Mg Tablet, 50 MG PO TID PRN for PAIN-MODERATE (5- 7) Prescribed by: GERALDINE MÉNDEZ on 06/08/22 1128 Review of Systems Review of Systems Constitutional: no symptoms reported Respiratory: no symptoms reported Cardiovascular: no symptoms reported Gastrointestinal: no symptoms reported Genitourinary: no symptoms reported Musculoskeletal: see HPI Skin: no symptoms reported Psychiatric/Neurological: No Symptoms Reported Past Grzliwe-Jaosyx-Llgqxg Hx Patient Social History Tobacco Use?: No Substance use?: No Alcohol Use?: No Immunizations Up To Date Tetanus Booster (TDap): More than 5yrs PED Vaccines UTD: Yes First/Initial COVID19 Vaccinat: NONE Second COVID19 Vaccination Frank: NONE Third COVID19 Vaccination Date: NONE Seasonal Allergies Seasonal Allergies: No Past Medical History Surgery/Hospitalization HX: IRREGULAR HR, TIA Surgeries: Yes (WISDOM TEETH; LOOP RECORDER 01/2021) Respiratory: Yes Pneumonia Cardiac: Yes (TACHYCARDIA; LOOP RECORDER PLACED IN 2020 AFTER SYNCOPE VS SEIZURE) High Cholesterol, Hypertension, Irregular Heartbeat, Syncope Neurological: Yes (TIA 02/2022 WITH APHASIA-COMPLETE RESOLUTION) Concussion, Headaches /Migraines, Seizure Disorder, Stroke, TIA 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 Disorders: No 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 Sexually Transmitted Disease: No Genitourinary: No Gastrointestinal: No Musculoskeletal: Yes (CHRONIC NECK PAIN; CHRONIC RIGHT KNEE PAIN/TORN MENISCUS PER MRI 01/26/21) Degenerate Disk Disease, Scoliosis, Chronic Back Pain Endocrine: No HEENT: No Cancer: No Psychosocial: Yes Anxiety, Depression Integumentary: No Blood Disorders: No Family Medical History Cardiovascular disease FH: breast cancer 19 MOTHER (METS) FH: lung cancer 19 FATHER FHx: mental retardation G8 BROTHER Myocardial infarction 19 FATHER (X2) Heart Disease, Cancer Physical Exam Vital Signs Vital Signs - First Documented 09/05/23 23:31 Temp 36.4 Pulse 80 Resp 16 B/P (MAP) 146/98 (114) Pulse Ox 94 O2 Delivery Room Air Capillary Refill : Height, Weight, BMI Height: 5'6.00" Weight: 180lbs. 5.0oz. 81.705643mf; 32.00 BMI Method:Stated General Appearance: WD/WN, no apparent distress Cardiovascular: normal peripheral pulses, regular rate, rhythm Respiratory: chest non-tender, normal breath sounds Gastrointestinal: non tender Back: normal inspection Extremities: other (TENDERNESS AND LIMITED ROM TO LEFT KNEE. TENDERNESS TO LEFT HUMERUS AREA. NO EXTERNAL EVIDENCE OF TRAUMA. DISTAL MOTOR/SENSORY/VASCULAR INTACT. 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 as tested, no motor/sensory deficits, alert, normal mood/affect, oriented x 3 Skin: normal color, warm/dry [place] Coma Score Best Eye Response: (4) Open Spontaneously Best Verbal Response: (5) Oriented Best Motor Response: (6) Obeys Commands Ashley Total: 15 Procedures/Interventions Splinting and Joint Reduction : Aditya wrap: Yes Immobilizers: 19 inch Knee Progress/Results/Core Measures Results/Orders My Orders Orders - VASILE SARMIENTO DO Humerus, Left, 2 Views (09/05/23 23:35) Knee, Right, 3 Views (09/05/23 23:35) Aditya Bandage (09/06/23 00:06) Knee Immobilizer (09/06/23 00:06) Ketorolac Injection (Ketorolac Injection (09/06/23 00:15) Medications Given in ED Current Medications Medications Dose Ordered Sig/Lyndsay Route Start Time Stop Time Status Last Admin Dose Admin Ketorolac Tromethamine 30 mg ONCE ONCE IVP 09/06/23 00:15 09/06/23 00:16 DC 09/06/23 00:20 30 MG Vital Signs/I&O 09/05/23 23:31 Temp 36.4 Pulse 80 Resp 16 B/P (MAP) 146/98 (114) Pulse Ox 94 O2 Delivery Room Air Progress Progress Note : Progress Note XRAYS DO NOT SHOW ANY ACUTE PROCESS, PENDING RADIOLOGIST REVIEW PLACED IN ADITYA WRAP AND KNEE IMMOBILIZER GIVEN TORADOL REVIEWED PRIOR RECORDS, PT WITH MULTITUDE OF ER VISITS, ALSO ADMITS/H&P'S/CONSULTS/DISCHARGE SUMMARIES, TESTS/PROCEDURES DISCUSSED TEST RESULTS, ANTICIPATED COURSE, SYMPTOMATIC TREATMENT, MEDICATIONS, NEED FOR FOLLOW UP--REFERRAL TO ORTHOPEDICS, AND RETURN PRECAUTIONS PT HAS TRAMADOL AT HOME FOR CHRONIC PAIN ISSUES PT AMBULATES OUT OF ER ON HER OWN WITHOUT DIFFICULTY. Diagnostic Imaging Comments XRAYS LEFT HUMERUS--NO ACUTE PROCESS, PENDING RADIOLOGIST REVIEW XRAYS RIGHT KNEE--NO ACUTE PROCESS, PENDING RADIOLOGIST REVIEW Reviewed: Reviewed by Me Departure Impression Primary Impression: Fall from standing Additional Impressions: Right knee pain Left upper arm pain Disposition: HOME, SELF-CARE Condition: Stable Departure-Patient Inst. Decision time for Depature: 00:05 Referrals: [facility] [place] (PCP/Family) Primary Care Physician ANKIT LAURENT MD, MICHAEL P MD Patient Instructions: How to Use an Elastic Bandage, Knee Immobilizer (DC), Knee Pain (DC), Using Cold for Pain Add. Discharge Instructions: TAKE YOUR TRAMADOL EVERY 4 HOURS FOR PAIN ICE TO SORE AREAS AT 20 MINUTE INTERVALS ADITYA WRAP AND KNEE IMMOBILIZER AT ALL TIMES FOLLOW UP WITH DR. TRAN OR DR. LAURENT NEXT WEEK FOR FURTHER CARE--CALL IN AM TO SCHEDULE AN APPOINTMENT Scripts Ketorolac Tromethamine (Ketorolac Tromethamine) 10 Mg Tablet 10 MG PO Q6H for Pain, #15 TAB Prov: VASILE SARMIENTO DO 09/06/23 VASILE SARMIENTO DO Sep 05, 2023 23:42
[2023-09-06] MEDS ORDERED: KETO10TA PO (00:10)
[2023-09-06] MEDS: KETOROLAC INJ 30 MG/ML VIAL IVP ONE (00:20)
[2023-09-06 00:22] VITALS: BP 132/89
--- NOTE | 2023-09-06 06:11 | Diagnostic Imaging Report ---
INDICATION: Left arm injury from a fall AP and lateral views of left humerus show no fracture or dislocation. IMPRESSION: Negative left humerus Dictated by: Dictated on workstation # [id number]
--- NOTE | 2023-09-06 06:11 | Diagnostic Imaging Report ---
INDICATION: Right knee injury from a fall 3 views of the right knee show no fracture or dislocation. There appears to be a joint effusion. IMPRESSION: Joint effusion. No fracture seen. Dictated by: Dictated on workstation # [id number]
== END 2023-09-06 00:26 | disposition home or self-care (01) ==
LOC: EDUNIT# 23:29 → ER 23:30
DX: M25.561 Pain in right knee (principal); M79.621 Pain in right upper arm; Z28.310 Unvaccinated for COVID-19; W18.30XA Fall on same level, unspecified, initial encounter; Y93.01 Activity, walking, marching and hiking; Y92.009 Unspecified place in unspecified non-institutional (private) residence as the place of occurrence of the external cause
CPT/HCPCS: 73060; 73562

== ENCOUNTER 2023-10-27 21:19 | Emergency (ER) | payer SELFPAY ==
[~2023-10-27] VITALS: Ht 172.7 cm; Wt 81.6 kg
[~2023-10-27 21:19] MED LIST changes: +KETO10TA PO
--- NOTE | 2023-10-27 21:44 | ED General ---
General Chief Complaint: Altered Mental Status Stated Complaint: SEIZURE EARLIER IN DAY Source of Information: Patient, Family History of Present Illness Date Seen by Provider: Oct 27, 2023 Time Seen by Provider: 20:34 Initial Comments Patient is a 53-year-old female who presents to the emergency room with a chief complaint of generalized fatigue and malaise all day, some nausea. According to her significant other at the bedside around 5 to 5:30 PM she had a generalized seizure. He states it lasted "10 to 15 minutes intermittently". They called EMS, EMS did not transport. He states she was confused afterwards. No vomiting, no injury. The last "seizure" she had was about 2-1/2 years ago. She is not medicated for seizures. She does take as needed tramadol for chronic right knee pain. This is prescribed by her primary care provider. She denies shortness of breath, productive cough. No dysuria, no diarrhea. She presents with fever this evening. Denies runny nose, earache sore throat. No rashes. No sick contacts. Timing/Duration: 4-6 Hours Severity: Moderate Associated Systoms: Chest Pain, Fever/Chills, Malaise, Weakness Allergies and Home Medications Allergies Coded Allergies: morphine (Verified Allergy, Unknown, 04/27/17) Patient Home Medication List Home Medication List Reviewed: Yes Amitriptyline HCl (Amitriptyline HCl) 25 Mg Tablet, 25 MG PO HS, (Reported) Entered as Reported by: ELIS FRANKLIN on 04/06/22 1038 Amlodipine Besylate (Amlodipine Besylate) 5 Mg Tablet, 5 MG PO DAILY Prescribed by: GERALDINE MÉNDEZ on 06/08/22 1127 Aspirin (Aspirin EC) 81 Mg Tablet.dr, 81 MG PO DAILY, (Reported) Entered as Reported by: ELIS FRANKLIN on 06/08/22 1011 Ketorolac Tromethamine (Ketorolac Tromethamine) 10 Mg Tablet, 10 MG PO Q6H Prescribed by: VASILE SARMIENTO on 09/06/23 0010 Lisinopril (Lisinopril) 10 Mg Tablet, 10 MG PO DAILY Prescribed by: GERALDINE MÉNDEZ on 06/08/22 1128 Meclizine HCl (Meclizine HCl) 25 Mg Tablet, 25 MG PO Q8H PRN for VERTIGO Prescribed by: Med Broderick on 10/20/22 1818 Metoprolol Succinate (Metoprolol Succinate) 100 Mg Tab.er.24h, 100 MG PO DAILY Prescribed by: GERALDINE MÉNDEZ on 06/08/22 1127 Nitroglycerin (Nitroglycerin) 0.4 Mg Tab.subl, 0.4 MG SL UD PRN for CHEST PAIN, (Reported) Entered as Reported by: ELIS FRANKLIN on 06/08/22 1011 Paroxetine HCl (Paroxetine HCl) 40 Mg Tablet, 40 MG PO DAILY, (Reported) Entered as Reported by: ELIS FRANKLIN on 02/27/22 1433 Rosuvastatin Calcium (Rosuvastatin Calcium) 20 Mg Tablet, 20 MG PO HS Prescribed by: GERALDINE MÉNDEZ on 06/08/22 1127 Tramadol HCl (Tramadol HCl) 50 Mg Tablet, 50 MG PO TID PRN for PAIN-MODERATE (5- 7) Prescribed by: GERALDINE MÉNDEZ on 06/08/22 1128 Review of Systems Review of Systems Constitutional: see HPI, malaise, weakness EENTM: no symptoms reported Respiratory: no symptoms reported Cardiovascular: no symptoms reported Gastrointestinal: nausea Genitourinary: no symptoms reported Musculoskeletal: joint pain (Chronic right knee pain) Skin: no symptoms reported Psychiatric/Neurological: Seizure Past Fdmcfyx-Kcefcx-Ahjoon Hx Patient Social History Tobacco Use?: No Use of E-Cig and/or Vaping dev: No Substance use?: No Alcohol Use?: No Immunizations Up To Date Tetanus Booster (TDap): More than 5yrs PED Vaccines UTD: Yes First/Initial COVID19 Vaccinat: NONE Second COVID19 Vaccination Frank: NONE Third COVID19 Vaccination Date: NONE Seasonal Allergies Seasonal Allergies: No Past Medical History Surgery/Hospitalization HX: IRREGULAR HR, TIA, HTN, LOOP RECORDER Surgeries: Yes (WISDOM TEETH; LOOP RECORDER 01/2021) Respiratory: Yes Pneumonia Cardiac: Yes (TACHYCARDIA; LOOP RECORDER PLACED IN 2020 AFTER SYNCOPE VS SEIZURE) High Cholesterol, Hypertension, Irregular Heartbeat, Syncope Neurological: Yes (TIA 02/2022 WITH APHASIA-COMPLETE RESOLUTION) Concussion, Headaches /Migraines, Seizure Disorder, Stroke, TIA 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 Disorders: No 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 Disorders: Denies OVERLOCKER History: Menopausal Sexually Transmitted Disease: No Genitourinary: No Gastrointestinal: No Musculoskeletal: Yes (CHRONIC NECK PAIN; CHRONIC RIGHT KNEE PAIN/TORN MENISCUS PER MRI 01/26/21) Degenerate Disk Disease, Scoliosis, Chronic Back Pain Endocrine: No HEENT: No Cancer: No Psychosocial: Yes Anxiety, Depression Nursing Suicide Risk Notes: AMS Integumentary: No Blood Disorders: No Family Medical History Cardiovascular disease FH: breast cancer 19 MOTHER (METS) FH: lung cancer 19 FATHER FHx: mental retardation G8 BROTHER Myocardial infarction 19 FATHER (X2) Heart Disease, Cancer Physical Exam Vital Signs Vital Signs - First Documented 10/27/23 21:20 Temp 38.6 Pulse 98 Resp 18 B/P (MAP) 132/79 (96) Pulse Ox 96 O2 Delivery Room Air O2 Flow Rate 2.00 Capillary Refill : Height, Weight, BMI Height: 5'6.00" Weight: 180lbs. 5.0oz. [id number]; 28.00 BMI Method:Stated General Appearance: No Apparent Distress, WD/WN Eyes: Bilateral Eye Normal Inspection, Bilateral Eye PERRL, Bilateral Eye EOMI HEENT: PERRL/EOMI, Pharynx Normal, Moist Mucous Membranes Neck: Full Range of Motion, Normal Inspection, Supple, Other (neg brudzinski) Respiratory: Lungs Clear, Normal Breath Sounds, No Accessory Muscle Use, No Respiratory Distress Cardiovascular: Regular Rate, Rhythm, Normal Peripheral Pulses Gastrointestinal: Non Tender, Soft Extremity: Normal Capillary Refill, Normal Inspection, Normal Range of Motion, No Pedal Edema Neurologic/Psychiatric: Alert, Oriented x3, No Motor/Sensory Deficits, Normal Mood/Affect Skin: Normal Color, Warm/Dry Progress/Results/Core Measures Suspected Sepsis SIRS Temperature: Pulse: Respiratory Rate: Laboratory Tests 10/27/23 22:00: White Blood Count 9.4 Blood Pressure / Mean: Laboratory Tests 10/27/23 21:27: Creatinine 0.94, Total Bilirubin 0.8 10/27/23 22:00: Platelet Count 254 Results/Orders Lab Results Laboratory Tests Test 10/27/23 21:25 10/27/23 21:27 10/27/23 21:53 10/27/23 22:00 Range/Units Glucometer 134 H 70-110 MG/DL Sodium Level 138 135-145 MMOL/L Potassium Level 4.1 3.6-5.0 MMOL/L Chloride Level 106 98-107 MMOL/L Carbon Dioxide Level 20 L 21-32 MMOL/L Anion Gap 12 5-14 MMOL/L Blood Urea Nitrogen 11 7-18 MG/DL Creatinine 0.94 0.60-1.30 MG/DL Estimat Glomerular Filtration Rate 73 BUN/Creatinine Ratio 12 Glucose Level 125 H 70-105 MG/DL Calcium Level 9.3 8.5-10.1 MG/DL Corrected Calcium 9.2 8.5-10.1 MG/DL Total Bilirubin 0.8 0.1-1.0 MG/DL Aspartate Amino Transf (AST/SGOT) 32 5-34 U/L Alanine Aminotransferase (ALT/SGPT) 21 0-55 U/L Alkaline Phosphatase 105 40-136 U/L Total Protein 7.5 6.4-8.2 GM/DL Albumin 4.1 3.2-4.5 GM/DL Influenza Type A (RT-PCR) Not Detected Not Detecte Influenza Type B (RT-PCR) Not Detected Not Detecte SARS-CoV-2 RNA (RT-PCR) Not Detected Not Detecte White Blood Count 9.4 4.3-11.0 10^3/uL Red Blood Count 4.46 3.80-5.11 10^6/uL Hemoglobin 9.5 L 11.5-16.0 g/dL Hematocrit 33 L 35-52 % Mean Corpuscular Volume 74 L 80-99 fL Mean Corpuscular Hemoglobin 21 L 25-34 pg Mean Corpuscular Hemoglobin Concent 29 L 32-36 g/dL Red Cell Distribution Width 18.2 H 10.0-14.5 % Platelet Count 254 130-400 10^3/uL Mean Platelet Volume 10.4 9.0-12.2 fL Immature Granulocyte % (Auto) 0 % Neutrophils (%) (Auto) 84 H 42-75 % Lymphocytes (%) (Auto) 12 12-44 % Monocytes (%) (Auto) 3 0-12 % Eosinophils (%) (Auto) 0 0-10 % Basophils (%) (Auto) 0 0-10 % Neutrophils # (Auto) 8.0 H 1.8-7.8 10^3/uL Lymphocytes # (Auto) 1.1 1.0-4.0 10^3/uL Monocytes # (Auto) 0.3 0.0-1.0 10^3/uL Eosinophils # (Auto) 0.0 0.0-0.3 10^3/uL Basophils # (Auto) 0.0 0.0-0.1 10^3/uL Immature Granulocyte # (Auto) 0.0 0.0-0.1 10^3/uL Test 10/28/23 00:14 Range/Units Urine Color YELLOW Urine Clarity TURBID H Urine pH 5.5 5-9 Urine Specific [place] >=1.030 1.016-1.022 Urine Protein 2+ H NEGATIVE Urine Glucose (UA) NEGATIVE NEGATIVE Urine Ketones TRACE H NEGATIVE Urine Nitrite NEGATIVE NEGATIVE Urine Bilirubin 1+ H NEGATIVE Urine Urobilinogen 1.0 < = 1.0 MG/DL Urine Leukocyte Esterase NEGATIVE NEGATIVE Urine RBC (Auto) NEGATIVE NEGATIVE Urine RBC NONE /HPF Urine WBC 0-2 /HPF Urine Squamous Epithelial Cells 2-5 /HPF Urine Crystals PRESENT H /LPF Urine Amorphous Sediment LARGE THIAGO URATES H /LPF Urine Bacteria MODERATE H /HPF Urine Casts PRESENT /LPF Urine Granular Casts 0-2 H /LPF Urine Mucus LARGE H /LPF Urine Culture Indicated YES My Orders Orders - SILKE LEWIS MD Ekg Tracing (10/27/23 21:28) Ed Iv/Invasive Line Start (10/27/23 21:43) Cbc And Automated Diff (10/27/23 21:43) Comprehensive Metabolic Panel (10/27/23 21:43) Covid 19 Inhouse Test (10/27/23 21:43) Influenza A And B By Pcr (10/27/23 21:43) Chest 1 View, Ap/Pa Only (10/27/23 21:43) Ua Culture If Indicated (10/27/23 22:37) Acetaminophen Tablet (Acetaminophen Ta (10/27/23 22:45) Urine Culture (10/28/23 00:14) Orphenadrine Inj (Ed Only) (Orphenadrine (10/28/23 01:21) Ketorolac Injection (Ketorolac Injection (10/28/23 01:30) Medications Given in ED Current Medications Medications Dose Ordered Sig/Lyndsay Route Start Time Stop Time Status Last Admin Dose Admin Acetaminophen 1,000 mg ONCE ONCE PO 10/27/23 22:45 10/27/23 22:46 DC 10/27/23 22:43 1,000 MG Vital Signs/I&O 10/27/23 10/27/23 21:20 22:43 Temp 38.6 38.6 Pulse 98 Resp 18 B/P (MAP) 132/79 (96) Pulse Ox 96 O2 Delivery Room Air O2 Flow Rate 2.00 Capillary Refill : Progress Note #1: Time: 00:10 Progress Note Still waiting on urine from the patient; FLuids administered. Progress Note #2: Time: 01:25 Progress Note Patient seen and evaluated by me, evaluation today includes history and physical exam with CBC, comprehensive metabolic panel, COVID and flu test, single view chest x-ray, urinalysis. Pertinent physical exam findings well-developed well- nourished female in no acute distress, appears somnolent on arrival. She has fever at 38.6, not hypoxic, normal blood pressure, not tachycardic. Responds appropriately to questioning. HEENT exam is unremarkable. Heart is regular, lungs are clear. Abdomen is soft and nontender. No rashes noted. Right knee slightly swollen, no significant effusion. Not erythematous or warm to the touch. Differential diagnosis includes COVID, flu, nonspecific viral syndrome, urinary tract infection, pneumonia Labs, chest x-ray independently reviewed and interpreted by me. Her CBC shows normal white count with 84% segmented neutrophils, hemoglobin slightly low at 9.5 hematocrit 33. Normal platelets. Comprehensive metabolic panel is completely within normal limits. Urinalysis shows concentrated urine with specific gravity greater than 1.030, 2+ protein. It is nitrite negative, 0-2 white blood cells with moderate bacteria. The patient is asymptomatic of UTI. Her COVID and influenza tests are negative. Patient had no deterioration in her condition here in the emergency department. She was treated with a gram of acet aminophen. No concerning findings for pneumonia, urinary tract infection. On reevaluation after labs complete she is sitting up at the bedside, feels better now that her fever is down. Is complaining of some right knee discomfort. Has had steroids from [facility] with Dr. Jennings. I recommended close follow-up with them regarding her chronic knee pain and encouraged her not to use the tramadol as it can lower seizure threshold. Recommended [id number] lidocaine, Biofreeze or diclofenac gel. Advised her to monitor her symptoms for worsening, new concerns and if she develops any concerning symptoms to return to the emergency department or follow-up with her primary care physician. Both she and her significant other verbalized understanding and agreement of the discharge instructions. All questions are sought and answered. Patient is improved at discharge. Diagnostic Imaging Diagonstic Imaging: Xray Plain Films/CT/US/NM/MRI: chest Comments Single view chest x-ray independently reviewed and interpreted by me -no infiltrate or effusion. Interval placement of loop recorder Departure Impression Primary Impression: Fever Qualified Codes: R50.9 - Fever, unspecified Additional Impressions: History of seizure Chronic pain of right knee Disposition: HOME, SELF-CARE Condition: Improved Departure-Patient Inst. Decision time for Depature: 01:22 Referrals: [facility] (PCP/Family) Primary Care Physician Patient Instructions: Fever, Adult ED Add. Discharge Instructions: You are a little dehydrated today on your labs, please drink increased amounts of fluids, water, Gatorade/Pedialyte to stay well-hydrated. You can use [id number] lidocaine patches over your knee, Biofreeze or diclofenac gel. Please follow packaging instructions. Keep your follow-up appointments with Dr. Jennings's PA, Dat Salas. Please call your primary care physician's office this Sunday for a follow-up appointment regarding the seizure you had earlier in the evening. Avoid taking any tramadol as this can lower your seizure threshold. Return to the emergency department for any new, concerning or emergent complaints. Copy Copies To 1: RAVI RASMUSSEN KATHRYN M MD Oct 27, 2023 21:44
[2023-10-27 21:54] LABS: ALBUMIN 4.1 GM/DL (3.2-4.5); POTASSIUM 4.1 MMOL/L (3.6-5.0)
[2023-10-27 21:55] LABS: CALCIUM 9.3 MG/DL (8.5-10.1)
[2023-10-27 21:56] LABS: TOTAL PROTEIN 7.5 GM/DL (6.4-8.2)
[2023-10-27 21:58] LABS: BILIRUBIN,TOTAL 0.8 MG/DL (0.1-1.0)
[2023-10-27 22:00] LABS: CREATININE SERUM 0.94 MG/DL (0.60-1.30)
[2023-10-27 22:29] LABS: BASOPHILS % (AUTO) 0 % (0-10); EOSINOPHILS % (AUTO) 0 % (0-10); HEMATOCRIT 33 % (35-52); HEMOGLOBIN 9.5 g/dL (11.5-16.0); LYMPHOCYTES # (AUTO) 1.1 10^3/uL (1.0-4.0); LYMPHOCYTES % (AUTO) 12 % (12-44); MEAN CORPUSCULAR HEMOGLOBIN 21 pg (25-34); MEAN CORPUSCULAR HGB CONC 29 g/dL (32-36); MEAN CORPUSCULAR VOLUME 74 fL (80-99); MEAN PLATELET VOLUME 10.4 fL (9.0-12.2); MONOCYTES # (AUTO) 0.3 10^3/uL (0.0-1.0); MONOCYTES % (AUTO) 3 % (0-12); NEUTROPHILS % (AUTO) 84 % (42-75); PLATELET COUNT 254 10^3/uL (130-400); WHITE BLOOD COUNT 9.4 10^3/uL (4.3-11.0)
[2023-10-27] MEDS ORDERED: ACETAMINOPHEN 500 MG TABLET PO ONE (22:45)
[2023-10-28] MEDS ORDERED: NS IV 1000 ML 1,000 ML IV SCH
[2023-10-28 00:43] LABS: BILIRUBIN,URINE 1+ (NEGATIVE); COLOR,URINE YELLOW; GLUCOSE, URINE (UA) NEGATIVE (NEGATIVE); KETONES,URINE TRACE (NEGATIVE); LEUKOCYTE ESTERASE ,URINE NEGATIVE (NEGATIVE); NITRITE,URINE NEGATIVE (NEGATIVE); PH,URINE 5.5 (5-9); PROTEIN,URINE 2+ (NEGATIVE); WBC,URINE 0-2 /HPF
[2023-10-28 00:44] LABS: AMORPHOUS SEDIMENT,UR LARGE AMOR URATES /LPF; BACTERIA,URINE MODERATE /HPF; GRANULAR CASTS,URINE 0-2 /LPF
[2023-10-28 00:50] LABS: CLARITY,URINE TURBID
[2023-10-28] MEDS ORDERED: ORPHENADRINE 60 MG/2 ML AMP (ED ONLY) IV STA (01:21)
[2023-10-28] MEDS ORDERED: KETOROLAC INJ 15 MG/ML VIAL IVP ONE (01:30)
[2023-10-28 01:36] VITALS: BP 120/83
--- NOTE | 2023-10-28 08:11 | Diagnostic Imaging Report ---
EXAMINATION: Chest, 1 view. HISTORY: Chest pain. COMPARISON: 10/20/2022. FINDINGS: The lung volumes are normal. No focal consolidation is seen. No large pleural effusion or pneumothorax is seen. The cardiomediastinal silhouette is normal in size and contour. No acute osseous abnormality is seen. IMPRESSION: No acute pleuroparenchymal process. Dictated by: Dictated on workstation # [id number]
== END 2023-10-28 01:36 | disposition home or self-care (01) ==
LOC: EDUNIT# 21:19 → ER 21:21
DX: R50.9 Fever, unspecified (principal); G89.29 Other chronic pain; M25.561 Pain in right knee; Z86.69 Personal history of other diseases of the nervous system and sense organs
CPT/HCPCS: 36415; 71045; 80053; 81000; 82947; 85025; 87088; 87636; 93005